=== PATIENT | female | born 1970 | race Caucasian/White ===

== ENCOUNTER 2017-08-26 15:49 | Inpatient (IN) ==
--- NOTE | 2017-08-26 16:15 | Emergency Department Note ---
General Adult HPI - General Chief complaint: Chest Pain Stated complaint: chest tightness, leg swelling, kidney failure Time Seen by Provider: 08/26/17 16:02 Source: patient Mode of arrival: ambulatory Limitations: no limitations - History of Present Illness HPI Narrative: This patient has been ill for the last several days with some nausea and vomiting and some left-sided chest pain from vomiting and has had some leg edema. She does have chronic renal failure and diabetes. She has been told in the past that she has heart failure. Dr. Garcia the director safety council sent her in for evaluation. - Related Data Home Medications Medication Instructions Recorded Confirmed amlodipine 10 mg tablet 10 mg PO QDAY tab 02/10/15 08/26/17 atorvastatin 20 mg tablet 20 mg PO QDAY tab 02/10/15 08/26/17 furosemide 40 mg tablet 40 mg PO QDAY tab 02/10/15 08/26/17 insulin glargine 100 unit/mL (3 See Dose Instructions SUB-Q 02/10/15 08/26/17 mL) subcutaneous pen .COMPLEX ml insulin lispro 100 unit/mL See Dose Instructions SUB-Q 02/10/15 08/26/17 subcutaneous solution .COMPLEX ml losartan 50 mg tablet 50 mg PO QDAY tab 02/10/15 08/26/17 multivitamin tablet 1 tab-cap PO QDAY tab 02/10/15 08/26/17 ondansetron 4 mg disintegrating See Dose Instructions PO .COMPLEX 02/10/1508/26 tablet tab lactobacillus combination no.8 3 3,000 mmu cells PO QDAY 12/26/15 08/26/17 billion cell capsule carvedilol 6.25 mg tablet 12.5 mg PO BID 05/18/17 08/26/17 hydromorphone 4 mg tablet 4 mg PO BID tab 05/18/17 08/26/17 venlafaxine ER 37.5 mg 150 mg PO QDAY 7 Days #28 cap 05/18/17 08/26/17 capsule,extended release 24 hr morphine 15 mg immediate release 15 mg PO BID tab 07/24/17 08/26/17 tablet Previous Rx's Medication Instructions Recorded calcium acetate 667 mg capsule 667 mg PO TID #90 cap 07/24/17 tiZANidine [Zanaflex] 2 mg PO TIDP PRN #30 tab 08/17/17 Allergies Allergy/AdvReac Type Severity Reaction Status Date / Time droperidol [From INAPSINE] Allergy Unknown "OUT OF Verified 07/24/17 13:43 BODY" metoclopramide Allergy Unknown Anaphylaxis Verified 07/24/17 13:43 pregabalin [From Lyrica] Allergy Unknown unknown Verified 07/24/17 13:43 prochlorperazine Allergy Unknown Anaphylaxis Verified 07/24/17 13:43 tiagabine AdvReac Severe unknown Verified 07/24/17 13:43 fentanyl AdvReac Intermediate unknown Verified 07/24/17 13:43 lidocaine AdvReac Unknown unknown Verified 07/24/17 13:43 From GABITRIL Allergy Severe Anaphylaxis Uncoded 07/24/17 13:43 From ROCEPHIN Allergy Intermediate RASH Uncoded 07/24/17 13:43 cefuroxime sodium Allergy Unknown unknown Uncoded 07/24/17 13:43 Review of Systems All systems ED: reviewed and negative except as stated. Constitutional: Denies: fever Eyes: Denies: eye pain ENT ED: Denies: ear pain Cardiovascular: Reports: chest pain Respiratory: Reports: shortness of breath, cough Gastrointestinal: Reports: abdominal pain, nausea, vomiting. Denies: diarrhea Genitourinary: Denies: dysuria Musculoskeletal: Denies: back pain Integumentary: Denies: rash Past Medical History - Past Medical History [facility] Narrative: Medical History (Last Reviewed 07/24/17 @ 14:30 by Tosin Garcia MD) Low back pain (Acute) Anemia in chronic kidney disease (CKD) (Acute) CRF (chronic renal failure) (Acute) Hypertension, essential, benign (Acute) Anemia (Chronic) Secondary hyperparathyroidism of renal origin (Chronic) Hypertensive renal disease (Chronic) Abnormal weight gain (Acute) Weakness (Acute) Vomiting (Acute) Vitreous hemorrhage (Acute) Vitamin D deficiency (Acute 01/18/13) UTI (lower urinary tract infection) (Acute) MRSA (methicillin resistant Staphylococcus aureus) (Acute) SOB (shortness of breath) (Acute) Diabetic retinopathy associated with diabetes mellitus due to underlying condition (Acute) Retinal detachment (Acute) Renal insufficiency (Acute 09/13/12) Pyelonephritis (Acute) Proteinuria (Acute) Polyneuropathy in diabetes (Acute) Peripheral neuropathy (Acute 12/09/12) Palpitation (Acute) Calf pain (Acute) Overweight (Acute 12/09/12) Nephrolithiasis (Acute 12/09/12) Microhematuria (Acute) Lumbar disc disease (Acute) 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) History of kidney stones (Acute) Hypothyroidism (Acute) Hypertension (Acute 12/09/12) Hyperkalemia (Acute) Flank pain (Acute) Fatigue (Acute) Edema of lower extremity (Acute) Dyspnea (Acute) DM (diabetes mellitus), type 1 with neurological complications (Acute) Diabetes mellitus with renal manifestation (Acute) Chronic pain (Acute) Chronic kidney disease (CKD), stage IV (severe) (Chronic 12/01/13) Chronic kidney disease, stage III (moderate) (Acute 12/09/12) Cataract (Acute) Blindness of one eye (Acute) Apnea (Acute) Orthopnea (Acute) Anemia in chronic kidney disease (CKD) (Acute 12/09/12) Acidosis (Acute) Abdominal pain (Acute) Past Surgical History (Last Reviewed 07/24/17 @ 14:30 by Tosin Garcia MD) History of shoulder surgery (Acute) History of hysterectomy with oophorectomy (Acute) Family History (Last Reviewed 07/24/17 @ 14:30 by Tosin Garcia MD) Father Cerebral infarction Essential hypertension Mother Type 1 diabetes mellitus Medical history: Reports: DM, hypertension, migraine, renal disease, other Psychiatric history: Reports: depression. Denies: anxiety Surgical history ED: Reports: appendectomy, cholecystectomy, hysterectomy, other (right oophorectomy. Left eye X 6.) - Social History smoking status: Never smoker Alcohol use: Reports: None Physical Exam Limitations: no limitations General appearance: alert Head: atraumatic Eye: Present: normal appearance ENT: normal exam Neck: Present: normal inspection Chest: Present: normal inspection Respiratory: Present: normal lung sounds bilaterally Cardiovascular: Present: regular rate, normal rhythm, normal heart sounds Abdominal: Present: soft. Absent: distention, tenderness Extremities: Present: pedal edema, pretibial edema Neurological: Present: alert Psychiatric: Present: normal affect, normal mood Skin: Present: warm, dry, intact Course Vital Signs Temperature 97.5 F 08/26/17 15:49 Pulse Rate 78 08/26/17 15:49 Respiratory Rate 18 08/26/17 15:49 Blood Pressure 175/93 08/26/17 15:49 Pulse Oximetry (%) 100 01/03/18 15:49 Temperature 97.5 F 08/26/17 15:49 Pulse Rate 74 08/26/17 19:00 Respiratory Rate 11 L 08/26/17 19:00 Blood Pressure 125/102 08/26/17 18:46 Pulse Oximetry (%) 87 L 08/26/17 19:00 Medical Decision Making - MDM Narrative Medical decision making narrative: Venous Doppler studies of the leg was were negative for DVT. Chest x-ray was read as clear. This patient will be admitted to the hospital by the hospitalist service. - Lab Data Lab results reviewed: Yes I reviewed the patient's lab results. Result diagrams: 08/26/17 19:08 08/26/17 17:10 Lab Results 08/26/17 08/26/17 08/26/17 Range/Units 17:10 17:10 17:10 WBC TNP RBC TNP Hgb TNP Hct TNP MCV TNP MCH TNP MCHC TNP RDW TNP Plt Count TNP MPV TNP Gran % TNP Lymph % (Auto) TNP [place] % (Auto) TNP Eos % (Auto) TNP Baso % (Auto) TNP Gran # TNP Lymph # (Auto) TNP [place] # (Auto) TNP Eos # (Auto) TNP Baso # (Auto) TNP Differential Comment TNP Sodium 131 L (133-145) mmol/L Potassium 4.5 (3.3-5.1) mmol/L Chloride 93 L (96-108) mmol/L Carbon Dioxide 21 L (22-30) mmol/L Anion Gap 17.0 H (8-16) BUN 55 H (6-20) mg/dl Creatinine 3.7 H (0.6-1.1) mg/dl GFR Calculation 14 Glucose 75 (70-105) mg/dL Calcium 9.2 (8.6-10.4) mg/dl Total Bilirubin < 0.2 (0.0-1.0) mg/dL AST 15 (0-37) U/l ALT 9 (0-40) U/l Alkaline Phosphatase 66 (39-117) U/L Troponin T < 0.01 (0-0.03) ng/ml Total Protein 7.3 (5.9-8.4) gm/dL Albumin 3.7 (3.2-5.2) gm/dL Globulin 3.6 (2.2-3.7) gm/dL Albumin/Globulin Ratio 1.0 (1.0-2.3) Urine Color Urine Appearance Urine pH (5.0-9.0) Ur Specific [place] (1.000-1.035) Urine Protein (NEG) mg/dL Urine Glucose (UA) (NEG) mg/dL Urine Ketones (NEG) mg/dL Urine Occult Blood (<0.03) mg/dL Urine Nitrate (NEG) Urine Bilirubin (NEG) mg/dL Urine Urobilinogen (NEG) mg/dL Ur Leukocyte Esterase (NEG) /uL Urine RBC (0-1) /hpf Urine WBC (0-4) /hpf Ur Squamous Epith Cells (0-4) /hpf Urine Bacteria (0) /hpf Urine Mucus (0) /hpf Ur Culture Indicated? 08/26/17 08/26/17 Range/Units 18:21 19:08 WBC 5.1 RBC 3.29 L Hgb 9.7 L Hct 28.3 L MCV 85.8 MCH 29.4 MCHC 34.3 RDW 13.5 Plt Count 456 H MPV 8.0 Gran % 44.6 Lymph % (Auto) 38.2 [place] % (Auto) 7.7 Eos % (Auto) 8.8 H Baso % (Auto) 0.7 Gran # 2.3 Lymph # (Auto) 2.0 [place] # (Auto) 0.4 Eos # (Auto) 0.4 Baso # (Auto) 0 Differential Comment Sodium (133-145) mmol/L Potassium (3.3-5.1) mmol/L Chloride (96-108) mmol/L Carbon Dioxide (22-30) mmol/L Anion Gap (8-16) BUN (6-20) mg/dl Creatinine (0.6-1.1) mg/dl GFR Calculation Glucose (70-105) mg/dL Calcium (8.6-10.4) mg/dl Total Bilirubin (0.0-1.0) mg/dL AST (0-37) U/l ALT (0-40) U/l Alkaline Phosphatase (39-117) U/L Troponin T (0-0.03) ng/ml Total Protein (5.9-8.4) gm/dL Albumin (3.2-5.2) gm/dL Globulin (2.2-3.7) gm/dL Albumin/Globulin Ratio (1.0-2.3) Urine Color Colorless Urine Appearance Clear Urine pH 5.0 (5.0-9.0) Ur Specific [place] 1.005 (1.000-1.035) Urine Protein 30 A (NEG) mg/dL Urine Glucose (UA) Negative (NEG) mg/dL Urine Ketones Neg (NEG) mg/dL Urine Occult Blood Neg (<0.03) mg/dL Urine Nitrate Neg (NEG) Urine Bilirubin Neg (NEG) mg/dL Urine Urobilinogen Neg (NEG) mg/dL Ur Leukocyte Esterase Neg (NEG) /uL Urine RBC 0 (0-1) /hpf Urine WBC 0 (0-4) /hpf Ur Squamous Epith Cells 1 (0-4) /hpf Urine Bacteria 0 (0) /hpf Urine Mucus Few (0) /hpf Ur Culture Indicated? No - Radiology Data Radiology results reviewed: Yes I reviewed the patient's radiology results. Disposition Pt seen by INTERVENTIONAL SALE CONSULTANT/PA only: No Clinical Impression: Chronic renal failure, stage 4 (severe) Chronic renal failure Qualifiers: Chronic kidney disease stage: stage 3 (moderate) Qualified Code(s): N18.3 - Chronic kidney disease, stage 3 (moderate) Disposition: Xfer As Inpt ([facility]) Condition: Fair Referrals: Natasha Ly MD [Primary Care Provider] - Time of Disposition: 19:47
[2017-08-26] MEDS ORDERED: ONDANSETRON 4 MG/2 ML VIAL IV ONE (16:16)
--- NOTE | 2017-08-26 16:50 | XRay Report ---
CLINICAL INFORMATION: Shortness of breath COMPARISON: 08/28/2009 FINDINGS: The heart size, mediastinum and pulmonary vessels are unremarkable. The lungs are clear. There are no effusions. The bones and soft tissues are within normal limits. IMPRESSION: Normal chest. Interpreted and Authenticated by: Joe Guevara 08/26/17
[2017-08-26] MEDS ORDERED: LORazepam 2 MG/ML VIAL IV ONE (17:35)
--- NOTE | 2017-08-26 18:15 | Ultrasound Report ---
CLINICAL INFORMATION: Bilateral lower extremity swelling COMPARISON: None. FINDINGS: Both the venous system including the common femoral, superficial femoral, popliteal and paired trifurcation calf veins are easily compressible and show normal venous blood flow on color and spectral Doppler. No evidence of thrombus IMPRESSION: Negative exam - no evidence of deep vein thrombosis in either lower extremity. Interpreted and Authenticated by: Joe Guevara 08/26/17
[2017-08-26 18:18] LABS: ALT/SGPT 9 U/l (0-40); Albumin 3.7 gm/dL (3.2-5.2); Alkaline Phosphatase 66 U/L (39-117); Blood Urea Nitrogen 55 mg/dl (6-20)
[2017-08-26 19:11] LABS: Appearance,Urine CLEAR; Bacteria,Urine 0 /hpf (0); Bilirubin,Urine NEG (NEG); Color,Urine COLORLESS; Glucose,Urine (UA) NEGATIVE (NEG); Leukocyte Esterase,Urine NEG /uL (NEG); Mucus,Urine FEW /hpf (0); Nitrate,Urine NEG (NEG); Protein,Urine 30 mg/dL (NEG); Specific Gravity,Urine 1.005 (1.000-1.035); Urine Blood NEG mg/dL (<0.03); Urine RBC 0 /hpf (0-1); Urine Squamous Epithelial Cell 1 /hpf (0-4); Urine WBC 0 /hpf (0-4); Urobilinogen,Urine NEG (NEG)
--- NOTE | 2017-08-26 19:29 | Nephrology Consult Note ---
History of Present Illness - Reason for Consult Patient information: Note initiated : 08/26/17 at 7:24 pm Service Date, if different from initiated Date: [] Patient: Paige Lemos 46 y/o F admitted on for chest tightness, leg swelling, kidney failure. Chief Complaint: [] Consult date: 08/26/17 chronic renal failure Requesting physician: Walter Cross - Chief Complaint worsening edema - History of Present Illness Patient seen in the ER She has h/o CKD stage IV related to diabetic nephropathy. Patient has been in the ER multiple times with c/o fatigue, LE weakness more in right LE. SOB on exertion and worsening LE edema. She was in ER on 08/24 at [facility] there her BP was uncontrolled and she has significant edema, her coreg dose was increased, her s.creat was worse. She states that she continued to feel poorly, extremely difficult to walk, gets easily fatigued and SOB. C/O 15 lb weight gain over the last 2 days no CP but has tingling and numbness in left UE c/o headache, nausea, vomiting no urinary symptoms denies any other change in medications was not sick with URI denies using NSAIDS Review of Systems All systems PM: reviewed and no additional remarkable complaints except as stated (In HPI) Past History Past medical history: DM type 1, retinopathy, neuropathy, CKD stage IV HTN, recently uncontrolled dyslipidemia chronic pain on opiate medications nephrolithiasis anemia of CKD secondary hyperparathyroidism Past surgical history: h/o hysterectomy and oopherectomy h/o right shoulder surgery Past family history: mother had h/o dementia no renal issues reported 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 social history: 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, 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 Medications and Allergies Home Medications Medication Instructions Recorded Confirmed Type amlodipine 10 mg tablet 10 mg PO QDAY tab 02/10/15 08/26/17 History atorvastatin 20 mg tablet 20 mg PO QDAY tab 02/10/15 08/26/17 History furosemide 40 mg tablet 40 mg PO QDAY tab 02/10/15 08/26/17 History insulin glargine 100 unit/mL (3 See Dose Instructions SUB-Q 02/10/15 08/26/17 History mL) subcutaneous pen .COMPLEX ml insulin lispro 100 unit/mL See Dose Instructions SUB-Q 02/10/15 08/26/17 History subcutaneous solution .COMPLEX ml losartan 50 mg tablet 50 mg PO QDAY tab 02/10/15 08/26/17 History multivitamin tablet 1 tab-cap PO QDAY tab 02/10/15 08/26/17 History ondansetron 4 mg disintegrating See Dose Instructions PO .COMPLEX 02/10/1508/26 History tablet tab lactobacillus combination no.8 3 3,000 mmu cells PO QDAY 12/26/15 08/26/17 History billion cell capsule carvedilol 6.25 mg tablet 12.5 mg PO BID 05/18/17 08/26/17 History hydromorphone 4 mg tablet 4 mg PO BID tab 05/18/17 08/26/17 History venlafaxine ER 37.5 mg 150 mg PO QDAY 7 Days #28 cap 05/18/17 08/26/17 History capsule,extended release 24 hr calcium acetate 667 mg capsule 667 mg PO TID #90 cap 07/24/17 08/26/17 Rx morphine 15 mg immediate release 15 mg PO BID tab 07/24/17 08/26/17 History tablet tiZANidine [Zanaflex] 2 mg PO TIDP PRN #30 tab 08/17/17 08/26/17 Rx Allergies Allergy/AdvReac Type Severity Reaction Status Date / Time droperidol [From INAPSINE] Allergy Unknown "OUT OF Verified 07/24/17 13:43 BODY" metoclopramide Allergy Unknown Anaphylaxis Verified 07/24/17 13:43 pregabalin [From Lyrica] Allergy Unknown unknown Verified 07/24/17 13:43 prochlorperazine Allergy Unknown Anaphylaxis Verified 07/24/17 13:43 tiagabine AdvReac Severe unknown Verified 07/24/17 13:43 fentanyl AdvReac Intermediate unknown Verified 07/24/17 13:43 lidocaine AdvReac Unknown unknown Verified 07/24/17 13:43 From GABITRIL Allergy Severe Anaphylaxis Uncoded 07/24/17 13:43 From ROCEPHIN Allergy Intermediate RASH Uncoded 07/24/17 13:43 cefuroxime sodium Allergy Unknown unknown Uncoded 07/24/17 13:43 Exam - Vital Signs Vital signs: Temp Pulse Resp BP Pulse Ox 97.5 F 74 11 L 125/102 87 L 08/26/17 15:49 08/26/17 19:00 08/26/17 19:00 08/26/17 18:46 08/26/17 19:00 - General Appearance General appearance: appears started age, chronically ill EENT: mucous membranes moist Neck: no JVD Respiratory: clear Cardiology: no rub, edema (3+), normal S1, normal S2 Gastrointestinal: no tenderness, no guarding Integumentary: no rash, warm and dry Neurologic: no asterixis, alert and oriented x3 Musculoskeletal: no erythema, no cyanosis Psychiatric: mood/affect appropriate Results - Lab Results 08/26/17 17:10 08/26/17 17:10 Most recent lab results Calcium 9.2 mg/dl (8.6-10.4) 08/26/17 17:10 Assessment and Plan (1) Acute on chronic renal failure s.creatinine is upto 3.7 baseline 2.4-2.8, BUN is 57 significant worsening with fluid excess is concerning no hyperkalemia, mild acidosis from renal failure mild hyponatremia from fluid overload Hb pending, has dropped down recently as well HTN uncontrolled recently as well recent CT scan showed no hydronephrosis would recommend to hospitalise the patient for IV diuresis given 15 lb weight gain in 2 days with significant decline in renal function would recommend to give 80mg IV and then continue 40mg iv tid with monitoring of renal function/serum electrolytes would continue with current antihypertensives no emergent need for dialysis but may need the same will need echo given fluid overload Will follow along Status: Acute (2) Fluid overload Status: Acute
[2017-08-26 19:44] LABS: Basophils # (Auto) 0 K/mcL (0.0-0.3); Basophils % (Auto) 0.7 % (0.0-2.0); Eosinophils # (Auto) 0.4 K/mcL (0.0-0.7); Eosinophils % (Auto) 8.8 % (0.0-7.0); Granulocytes % (Auto) 44.6 % (38.0-78.0); Lymphocytes % (Auto) 38.2 % (15.5-49.0); Mean Cell Volume 85.8 fL (80.0-100.0); Mean Corpuscular HGB Conc 34.3 g/dL (31.0-36.0); Mean Corpuscular Hemoglobin 29.4 pg (26.0-34.0); Monocytes # (Auto) 0.4 K/mcL (0.1-0.9); Monocytes % (Auto) 7.7 % (1.0-12.0); Platelet Count 456 K/mcL (140-440); RBC 3.29 M/mcL (4.00-5.20); Red Cell Distribution Width 13.5 % (11.5-14.5)
[2017-08-26] MEDS ORDERED: NALOXONE HCL 0.4 MG/ML VIAL IV PRN (20:39)
--- NOTE | 2017-08-26 20:48 | Internal Med History&Physical ---
Medical - H&P: HPI Patient information: Note initiated : 08/26/17 at 8:46 pm Service Date, if different from initiated Date: [] Patient: Paige Lemos a 46 y/o F admitted on 08/26/17 for chest tightness , leg swelling, kidney failure. Chief Complaint: [] History of present illness: Ms. Lemos is a 46 year old F with h/o DM, CKD stage 4, HTN, who presents to the ER with complaints of weakness, edema in howard lower extremities and confusion. She was asked by her applications consultant to c ome to the ER after she reported 15lbs weight gain in 2 days. The patient notes that she was not feeling well for 2 days, has been weak and fatigued, tired, short of breath on exertion, she notes that she has been have increased swelling in both her feet since 2 d ays, noted she likely gained 15 lbs over 2 days. She notes she has pain in the left upper abdomen, which lasts for a minute or so, sharp/ to pressure like sensation, radiating to the back, she has been having nausea and vomiting, and initially thought this was secondary to same. She has some dizziness. the patient also reports that since this AM she has more weakness in the right lower extremity, she also has decreased sensation in that leg, she tried to walk and her leg gave away. She denies any bowel bladder continence, she denies any slurring of speech or deviation of face. Her who is at the bedside noted that she has been confused, but no facial deviation over the last 2 days, talking to people who are not there and trying to do things while in bed as if doing the laundry In the ER the patient had worsening of her renal function, baseline creat jumped up from 2.4 to 3.7, she had edema feet, trop x 1 neg, ekg shows RBBB, which seems old, no ekg present but old tracing shows rbbb, the patient wbc is normal and ua is negative. She is being admitted to the hospital for further management. She was present to the ER on aug 17, for flank back pain? which she did not report to me, and was given xanaflex, she also takes morphine SR at home, her dose of coreg was adjusted. All systems: reviewed and no additional remarkable complaints except as stated ( as per HPI) Medical - H&P: [facility] Medical history: Medical History (Last Reviewed 07/24/17 @ 14:30 by Tosin Garcia MD) Low back pain (Acute) Anemia in chronic kidney disease (CKD) (Acute) CRF (chronic renal failure) (Acute) Hypertension, essential, benign (Acute) Acute on chronic renal failure (Acute) Fluid overload (Acute) Chronic renal failure, stage 4 (severe) (Acute) Anemia (Chronic) Secondary hyperparathyroidism of renal origin (Chronic) Hypertensive renal disease (Chronic) Abnormal weight gain (Acute) Weakness (Acute) Vomiting (Acute) Vitreous hemorrhage (Acute) Vitamin D deficiency (Acute 01/18/13) UTI (lower urinary tract infection) (Acute) MRSA (methicillin resistant Staphylococcus aureus) (Acute) SOB (shortness of breath) (Acute) Diabetic retinopathy associated with diabetes mellitus due to underlying condition (Acute) Retinal detachment (Acute) Renal insufficiency (Acute 09/13/12) Pyelonephritis (Acute) Proteinuria (Acute) Polyneuropathy in diabetes (Acute) Peripheral neuropathy (Acute 12/09/12) Palpitation (Acute) Calf pain (Acute) Overweight (Acute 12/09/12) Nephrolithiasis (Acute 12/09/12) Microhematuria (Acute) Lumbar disc disease (Acute) 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 (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) History of kidney stones (Acute) Hypothyroidism (Acute) Hypertension (Acute 12/09/12) Hyperkalemia (Acute) Flank pain (Acute) Fatigue (Acute) Edema of lower extremity (Acute) Dyspnea (Acute) DM (diabetes mellitus), type 1 with neurological complications (Acute) Diabetes mellitus with renal manifestation (Acute) Chronic pain (Acute) Chronic kidney disease (CKD), stage IV (severe) (Chronic 12/01/13) Chronic kidney disease, stage III (moderate) (Acute 12/09/12) Cataract (Acute) Blindness of one eye (Acute) Apnea (Acute) Orthopnea (Acute) Anemia in chronic kidney disease (CKD) (Acute 12/09/12) Acidosis (Acute) Abdominal pain (Acute) Surgical history: Past Surgical History (Last Reviewed 07/24/17 @ 14:30 by Tosin Garcia MD) History of shoulder surgery (Acute) History of hysterectomy with oophorectomy (Acute) Pertinent family history: Family History (Last Reviewed 12/01/17 @ 14:30 by Tosin Garcia MD) Father Cerebral infarction Essential hypertension Mother Type 1 diabetes mellitus Medical - H&P: Meds Home Medications Medication Instructions Recorded Confirmed Type amlodipine 10 mg tablet 10 mg PO QDAY tab 02/10/15 08/26/17 History atorvastatin 20 mg tablet 20 mg PO QDAY tab 02/10/15 08/26/17 History furosemide 40 mg tablet 40 mg PO QDAY tab 02/10/15 08/26/17 History insulin glargine 100 unit/mL (3 See Dose Instructions SUB-Q 02/10/15 08/26/17 History mL) subcutaneous pen .COMPLEX ml insulin lispro 100 unit/mL See Dose Instructions SUB-Q 02/10/15 08/26/17 History subcutaneous solution .COMPLEX ml losartan 50 mg tablet 50 mg PO QDAY tab 02/10/15 08/26/17 History multivitamin tablet 1 tab-cap PO QDAY tab 02/10/15 08/26/17 History ondansetron 4 mg disintegrating See Dose Instructions PO .COMPLEX 02/10/1508/26 History tablet tab lactobacillus combination no.8 3 3,000 mmu cells PO QDAY 12/26/15 08/26/17 History billion cell capsule carvedilol 6.25 mg tablet 12.5 mg PO BID 05/18/17 08/26/17 History hydromorphone 4 mg tablet 4 mg PO BID tab 05/18/17 08/26/17 History venlafaxine ER 37.5 mg 150 mg PO QDAY 7 Days #28 cap 05/18/17 08/26/17 History capsule,extended release 24 hr calcium acetate 667 mg capsule 667 mg PO TID #90 cap 07/24/17 08/26/17 Rx morphine 15 mg immediate release 15 mg PO BID tab 07/24/17 08/26/17 History tablet tiZANidine [Zanaflex] 2 mg PO TIDP PRN #30 tab 08/17/17 08/26/17 Rx Allergies Allergy/AdvReac Type Severity Reaction Status Date / Time metoclopramide Allergy Severe Anaphylaxis Verified 08/26/17 21:14 prochlorperazine Allergy Severe Anaphylaxis Verified 08/26/17 21:14 pregabalin [From Lyrica] Allergy Unknown unknown Verified 07/24/17 13:43 tiagabine AdvReac Severe unknown Verified 07/24/17 13:43 fentanyl AdvReac Intermediate unknown Verified 07/24/17 13:43 droperidol [From INAPSINE] AdvReac Mild "OUT OF Verified 08/26/17 21:14 BODY" lidocaine AdvReac Unknown unknown Verified 07/24/17 13:43 From GABITRIL Allergy Severe Anaphylaxis Uncoded 07/24/17 13:43 From ROCEPHIN Allergy Intermediate RASH Uncoded 07/24/17 13:43 cefuroxime sodium Allergy Unknown unknown Uncoded 07/24/17 13:43 Medical - H&P: Exam - Constitutional Vitals: Temp Pulse Resp BP Pulse Ox 97.5 F 74 11 L 125/102 87 L 08/26/17 15:49 08/26/17 19:00 08/26/17 19:00 08/26/17 18:46 08/26/17 19:00 Exam: GENERAL: The patient is a well-developed, well-nourished in no apparent distress. Is alert and oriented x3. VITAL SIGNS: Reviewed and as noted elsewhere. HEENT: Head is normocephalic and atraumatic. Extraocular muscles are intact.right pupil 3mm, left eye has some corneal opacity. Nares appeared normal. Mouth appears any without lesions. Mucous membranes are moist. NECK: Normal to inspection, Supple, No lymphadenopathy or thyromegaly. LUNGS: Air entry equal on both sides, no wheezing, crackles or rhonchi noted. No accessory muscles of respiration HEART: Regular rate and rhythm normal, S1 and S2 heard, no Gallop, S3 or Rub Noted, No Gross murmur heard. ABDOMEN: Soft, nontender, and nondistended. Positive bowel sounds. No hepatosplenomegaly was noted. EXTREMITIES: No cyanosis, clubbing, rash, , howard edema present, upto the upper thighs, NEUROLOGIC: Cranial nerves II through XII are grossly intact. right leg has decreased sensation, has 4/5 strength, left leg also has decreased sensation, but not as much as right, and has 5/5 strength. PSYCHIATRIC: Normal affect, Normal Mood. Appropriate Behavior. SKIN: No jaundice,multiple excoraited skin lesions due to ticks noted. Medical - H&P: Reslt - Labs CBC & Chem 7: 08/26/17 19:08 08/26/17 17:10 Labs: Short CBC 08/26/17 08/26/17 Range/Units 17:10 19:08 WBC TNP 5.1 Hgb TNP 9.7 L Hct TNP 28.3 L Plt Count TNP 456 H BMP 08/26/17 17:10 Sodium 131 L Potassium 4.5 Chloride 93 L Carbon Dioxide 21 L BUN 55 H Creatinine 3.7 H Glucose 75 Calcium 9.2 Cardiac Enzymes 08/26/17 Range/Units 17:10 Troponin T < 0.01 (0-0.03) ng/ml Liver Function 08/26/17 Range/Units 17:10 Total Bilirubin < 0.2 (0.0-1.0) mg/dL AST 15 (0-37) U/l ALT 9 (0-40) U/l Alkaline Phosphatase 66 (39-117) U/L Albumin 3.7 (3.2-5.2) gm/dL Urine 08/26/17 Range/Units 18:21 Urine Color Colorless Urine Appearance Clear Urine pH 5.0 (5.0-9.0) Ur Specific [place] 1.005 (1.000-1.035) Urine Protein 30 A (NEG) mg/dL Urine Glucose (UA) Negative (NEG) mg/dL Medical - H&P: A/P - Narrative A/P Narrative: A/P Acute on Chr renal failure: Etiology, nephrology consulted, pt clearly has fluid overload, will place rudd, and start on IV lasix, monitor output. Flud overload: due to ckd? get echo, x ray does not show chf, iv lasix for now, DVT is neg on duplex scanning. Confustion: etiology? no clear e/o infection, patient is on opiates also got some xanaflex which can cause confusion, monitor for now, hold oral morphine. Neuropathy/ Pain: Hold oral morphine, as can cause UPPER CASER adverse effects in patients with CKd, IV dilaudid prn for now, monitor reponse and adjsut dosing. Right leg weakness: likely secondary to swelling, but she was in the ER for back pain, a few days ago, denies this now, has no spine tenderness, will see how she does with diuresis, get MRI spine. DM: Type 1 DM, with retinopathy and nephropathy, neuropathy, lantus and sliding scale insulin. HTN: resume meds, hold losartan for now, and resume coreg, amlodipine. HLD : P[t is not on statin at home? Chest pain/ LEft upper quadarant pain: Etiology? associated with vomiting, no ekg changes, neg trop, repeat trop, monitor on tele, IV PPI and IV zofran and see how she does, will get echo in AM, DVT hep sq Diet carb consistent, renal diet Full code. Social History - Tobacco smoking status: Never smoker - Alcohol alcohol intake frequency: former alcohol drinker
[2017-08-26] MEDS: HYDROmorphone 2 MG/ML SYRINGE IV PRN ×2 (20:50→22:39)
[2017-08-26] MEDS ORDERED: HYDROmorphone 2 MG/ML SYRINGE ONE (20:54)
[2017-08-26 21:01] LABS: Amylase 23 U/L (28-100); Lipase 19 U/L (7-60); proBNP 441.8 pg/ml (0-125)
[2017-08-26] MEDS: FUROSEMIDE 100 MG/10 ML VIAL IV SCH ×4 (21:06→22:55)
[2017-08-26] MEDS ORDERED: FUROSEMIDE 20 MG/2 ML VIAL IV ONE ×2 (21:11→21:20)
[2017-08-26] MEDS ORDERED: DEXTROSE 31 GM ORAL.SUSP PO PRN (21:27)
[2017-08-26] MEDS ORDERED: DEXTROSE 50% 50 ML VIAL IV PRN (21:27)
[2017-08-26] MEDS ORDERED: diphenhydrAMINE 50 MG/ML VIAL ONE (22:55)
[2017-08-26] MEDS: HEPARIN 5,000 UNIT/ML VIAL SQ SCH (22:56)
[2017-08-26] MEDS: PANTOPRAZOLE 40 MG VIAL IV SCH (22:56)
[2017-08-26] MEDS: INSULIN GLARGINE, HUMAN 1 UNIT/0.01 ML SQ SCH (22:58)
[2017-08-27] MEDS: HYDROmorphone 2 MG/ML SYRINGE IV PRN ×6 (01:59→23:45)
[2017-08-27] MEDS: ONDANSETRON 4 MG/2 ML VIAL IV PRN ×4 (03:15→21:06)
[2017-08-27 04:26] LABS: Basophils # (Auto) 0 K/mcL (0.0-0.3); Basophils % (Auto) 0.5 % (0.0-2.0); Eosinophils # (Auto) 0.4 K/mcL (0.0-0.7); Eosinophils % (Auto) 7.5 % (0.0-7.0); Granulocytes % (Auto) 39.1 % (38.0-78.0); Lymphocytes # (Auto) 2.1 K/mcL (1.5-4.8); Lymphocytes % (Auto) 44.7 % (15.5-49.0); Mean Cell Volume 86.1 fL (80.0-100.0); Mean Corpuscular HGB Conc 33.9 g/dL (31.0-36.0); Mean Corpuscular Hemoglobin 29.2 pg (26.0-34.0); Monocytes # (Auto) 0.4 K/mcL (0.1-0.9); Monocytes % (Auto) 8.2 % (1.0-12.0); Platelet Count 435 K/mcL (140-440); RBC 3.06 M/mcL (4.00-5.20); Red Cell Distribution Width 13.6 % (11.5-14.5)
[2017-08-27 04:55] LABS: ALT/SGPT 8 U/l (0-40); Albumin 3.4 gm/dL (3.2-5.2); Albumin/Globulin Ratio 1.1 (1.0-2.3); Alkaline Phosphatase 60 U/L (39-117); Bilirubin,Direct < 0.2 mg/dL (0.0-0.3); Blood Urea Nitrogen 52 mg/dl (6-20); Gamma Glutamyl Transpeptidase 13 U/L (5-36); Magnesium 2.3 mg/dL (1.6-2.5); Uric Acid 8.7 mg/dL (2.5-8.0)
[2017-08-27] MEDS: FUROSEMIDE 100 MG/10 ML VIAL IV SCH ×3 (05:02→20:56)
[2017-08-27] MEDS: PANTOPRAZOLE 40 MG VIAL IV SCH (06:57)
[2017-08-27] MEDS: INSULIN LISPRO 1 UNIT/0.01 ML UNIT SQ SCH ×4 (06:58→21:17)
[2017-08-27] MEDS ORDERED: CARVEDILOL 12.5 MG TABLET PO SCH (08:00)
[2017-08-27 09:05] LABS: Iron 53 mcg/dl (37-145); Transferrin % Saturation 23 % (15-50); Unsaturated Iron Binding 168 mcg/dL (112-346)
[2017-08-27 09:06] LABS: Ferritin 80.8 ng/ml (13-150)
[2017-08-27 09:13] LABS: Vitamin B12 935.1 pg/ml (232-1245)
[2017-08-27] MEDS: CARVEDILOL 12.5 MG TABLET PO SCH ×2 (09:16→17:41)
[2017-08-27] MEDS: CALCIUM ACETATE 667 MG CAPSULE PO SCH ×2 (09:16→12:58)
[2017-08-27] MEDS: LACTOBACILLUS 1 CAPSULE PO SCH (09:17)
[2017-08-27] MEDS: VENLAFAXINE 37.5 MG TAB.ER.24H PO SCH (09:17)
[2017-08-27] MEDS: HEPARIN 5,000 UNIT/ML VIAL SQ SCH ×2 (09:17→20:56)
[2017-08-27] MEDS: MULTIVIT,THER IRON,CA,FA & MIN 1 TABLET PO SCH (09:18)
[2017-08-27] MEDS: diphenhydrAMINE 50 MG/ML VIAL IV PRN ×2 (09:18→13:51)
[2017-08-27] MEDS: ATORVASTATIN 20 MG TABLET PO SCH (09:18)
[2017-08-27] MEDS: INSULIN GLARGINE, HUMAN 1 UNIT/0.01 ML SQ SCH ×2 (09:18→21:18)
[2017-08-27] MEDS: amLODIPine 10 MG TABLET PO SCH (09:18)
[2017-08-27] MEDS ORDERED: PNEUMOCOCCAL 23-VAL P-SAC VAC 0.5 ML VIAL IM ONE (10:00)
[2017-08-27] MEDS ORDERED: FLU VACC QS2017-18 36MOS UP/PF 60 MCG/0.5 ML SYRINGE IM ONE (10:00)
[2017-08-27] MEDS: HYDROmorphone 2 MG TABLET PO SCH ×2 (10:45→20:56)
[2017-08-27] MEDS ORDERED: HYDROmorphone 2 MG TABLET PO ONE (10:45)
[2017-08-27] MEDS ORDERED: NITROGLYCERIN 0.4 MG TAB.SUBL SL PRN (13:08)
--- NOTE | 2017-08-27 13:08 | Internal Med Progress Note ---
Medical - PN: Subj Patient information: Note initiated : 08/27/17 at 1:05 pm Service Date, if different from initiated Date: [] Patient: Paige Lemos a 46 y/o F admitted on 08/26/17 for Chest Tightness , Leg Swelling, Kidney Failure. Chief Complaint: [] Interval history: Ms. Lemos is a 46 year old F with h/o DM, CKD stage 4, HTN, who presents to the ER with complaints of weakness, edema in howard lower extremities and confusion. She was asked by her automatic log cut off sawyer to c ome to the ER after she reported 15lbs weight gain in 2 days. The patient notes that she was not feeling well for 2 days, has been weak and fatigued, tired, short of breath on exertion, she notes that she has been have increased swelling in both her feet since 2 d ays, noted she likely gained 15 lbs over 2 days. She notes she has pain in the left upper abdomen, which lasts for a minute or so, sharp/ to pressure like sensation, radiating to the back, she has been having nausea and vomiting, and initially thought this was secondary to same. She has some dizziness. the patient also reports that since this AM she has more weakness in the right lower extremity, she also has decreased sensation in that leg, she tried to walk and her leg gave away. She denies any bowel bladder continence, she denies any slurring of speech or deviation of face. Her who is at the bedside noted that she has been confused, but no facial deviation over the last 2 days, talking to people who are not there and trying to do things while in bed as if doing the laundry In the ER the patient had worsening of her renal function, baseline creat jumped up from 2.4 to 3.7, she had edema feet, trop x 1 neg, ekg shows RBBB, which seems old, no ekg present but old tracing shows rbbb, the patient wbc is normal and ua is negative. She is being admitted to the hospital for further management. She was present to the ER on aug 17, for flank back pain? which she did not report to me, and was given xanaflex, she also takes morphine SR at home, her dose of coreg was adjusted. Aug 28 Patient seen examined, no new complaints still has swelling in the legs and weakness, which is getting better. patient was neg 2700ml overnight with improving renal functino. COntinue IV diuresis Pt still has some weakness in the right LL, which is unchanged than yesterday, able to lift somewhat against gravity, she also notes pain in the chest, a band like sensation? Will repeat Trop again, cxr is negative, echo pending, will get MRI thoracic sine to r/o any spinal pathology, sonam since we are already doing the Ct Lumbar spine. check D dimer and trial of nitro to see if this is cardiac. Pertinent ROS: Denies headache, dizziness upper abdomen/ lower elft sided c hest pain, band like sensation, no palpitations, sob still present on activity, not at rest, no cough, Denies abdominal pain, nausea or vomiting. - Constitutional Vitals: Vital Signs Temp Pulse Resp BP Pulse Ox 98.0 F 78 16 119/56 91 08/27/17 12:01 08/26/17 21:49 08/27/17 12:01 08/27/17 12:01 08/27/17 12:01 Period Temp Pulse Resp BP Sys/Toro Pulse Ox Last 24 Hr 97.5 F-99.0 F 49-97 10-24 67-175/43-102 81-100 Intake and Output 08/26/17 08/27/17 08/27/17 21:59 05:59 13:59 Intake Total 110 / 110 Output Total 600 / 600 1550 / 1550 750 / 750 Balance -600 / -600 -1440 / -1440 -750 / -750 Weight 190 lb 4.8 oz Intake & Output: Intake & Output 08/26/17 08/27/17 08/27/17 21:59 05:59 13:59 Intake Total 110 / 110 Output Total 600 / 600 1550 / 1550 750 / 750 Balance -600 / -600 -1440 / -1440 -750 / -750 Weight 190 lb 4.8 oz Intake: Oral 110 / 110 Output: Urine Catheter Amount 600 / 600 1550 / 1550 750 / 750 Other: Meal Breakfast Percent of Meal Consumed 25% Feeding Ability Independent Exam: Constitutional; Afebrile, cooperative, alert, not in distress. Eyes- No icterus, , No periorbital swelling Ears- Ext ear normal, hearing normal to conversation. Neck- Midline trachea, supple Respiratory system: Air Entry equal on both sides, No crackles or wheezing, no rhonchi. CVS- Rate rhythm regular, S1,S2 heard, no gallop, no rub. Abdomen- Soft nontender abdomen, no organomegaly, no tenderness, no guarding or rigidity, TELEPHONE APPOINTMENT CLERK- AOOx3, moving all extremities, right lower extremity weakness, 3 -4/5 unchanged since yesterday. MRI pending. Medical - PN: Obj Da - Labs CBC & Chem 7: 08/27/17 03:45 08/27/17 03:45 Labs: Abnormal Lab Results 08/27/17 08/27/17 08/27/17 07:59 03:45 03:45 RBC 3.06 L Hgb 8.9 L Hct 26.4 L Plt Count Eos % (Auto) 7.5 H Sodium Chloride Carbon Dioxide Anion Gap BUN 52 H Creatinine 3.4 H Uric Acid 8.7 H Phosphorus 7.4 H* TIBC 221 L NT-Pro-B Natriuret Pep Triglycerides 389 H Amylase Urine Protein 08/26/17 08/26/17 08/26/17 19:54 19:08 18:21 RBC 3.29 L Hgb 9.7 L Hct 28.3 L Plt Count 456 H Eos % (Auto) 8.8 H Sodium Chloride Carbon Dioxide Anion Gap BUN Creatinine Uric Acid Phosphorus TIBC NT-Pro-B Natriuret Pep 441.8 H Triglycerides Amylase 23 L Urine Protein 30 A 08/26/17 17:10 RBC Hgb Hct Plt Count Eos % (Auto) Sodium 131 L Chloride 93 L Carbon Dioxide 21 L Anion Gap 17.0 H BUN 55 H Creatinine 3.7 H Uric Acid Phosphorus TIBC NT-Pro-B Natriuret Pep Triglycerides Amylase Urine Protein Meds: Medications Amlodipine Besylate (Norvasc) 10 mg PO QDAY [facility] Last Admin: 08/27/17 09:18 Dose: 10 mg Atorvastatin Calcium (Lipitor) 20 mg PO QDAY [facility] Last Admin: 08/27/17 09:18 Dose: 20 mg Calcium Acetate (Phoslo) 667 mg PO TIDCC [facility] Last Admin: 08/27/17 12:58 Dose: Not Given Carvedilol (Coreg) 6.25 mg PO BIDCC [facility] Last Admin: 08/27/17 09:16 Dose: 6.25 mg Dextrose (Dextrose 50%) 0 ml IV UD PRN PRN Reason: Hypoglycemia Diagnostic Test (Pha) (Accu-Chek) 1 each FS ACHS [facility] Last Admin: 08/27/17 11:55 Dose: 1 each Diphenhydramine HCl (Benadryl) 12.5 mg IV Q4HP PRN PRN Reason: Allergic Symptoms Last Admin: 08/27/17 09:18 Dose: 12.5 mg Furosemide (Lasix) 60 mg IV Q8 [facility] Last Admin: 08/27/17 05:02 Dose: 60 mg Glucose (Insta-Glucose) 15 gm PO PRN PRN PRN Reason: Hypoglycemia Heparin Sodium (Porcine) (Heparin) 5,000 unit SQ Q12 [facility] Last Admin: 08/27/17 09:17 Dose: 5,000 unit Hydromorphone HCl (Dilaudid) 1 mg IV Q2HP PRN PRN Reason: PAIN LEVEL > 6 Last Admin: 08/27/17 11:16 Dose: 1 mg Hydromorphone HCl (Dilaudid) 4 mg PO BID [facility] Insulin Glargine (Lantus) 10 unit SQ BID [facility] Last Admin: 08/27/17 09:18 Dose: 10 unit Insulin Human Lispro (Humalog) 0 unit SQ [facility] PRN Reason: Protocol Last Admin: 08/27/17 11:55 Dose: Not Given Iron Carb/Multivit/[place]/Folic Acid (Multivitamin W/Minerals) 1 tab PO DAILY [facility] Last Admin: 08/27/17 09:18 Dose: 1 tab Lactobacillus Rhamnosus (Culturelle) 1 cap PO DAILY [facility] Last Admin: 08/27/17 09:17 Dose: 1 cap Naloxone HCl (Narcan) 0.1 mg IV Q2MIN PRN PRN Reason: Opiate Reversal Ondansetron HCl (Zofran) 4 mg IV Q4HP PRN PRN Reason: Nausea And Vomiting Last Admin: 08/27/17 09:40 Dose: 4 mg Pantoprazole Sodium (Protonix) 40 mg IV QAMAC [facility] Last Admin: 08/27/17 06:57 Dose: 40 mg Venlafaxine HCl (Effexor Xr) 150 mg PO QDAY [facility] Last Admin: 08/27/17 09:17 Dose: 150 mg Medical - PN: A/P - Time Spent With Patient Total time spent is greater than 50% in coordination of care (as documented) at patient's floor/unit and/or counseling patient: - Narrative A/P Narrative: A/P Acute on Chr renal failure: Etiology,? appreciate nephrology consult, pt clearly has fluid overload, continue IV lasix for now, monitor renal function. Flud overload: due to ckd? echo pending, D VT neg, Confustion: etiology? no clear e/o infection, patient is on opiates also got some xanaflex which can cause confusion, monitor for now, hold oral morphine. Neuropathy/ Pain: Hold oral morphine, as can cause TELEPHONE APPOINTMENT CLERK adverse effects in patients with CKd, IV dilaudid prn for now,resume oral dilaudid, and incrase dose of iv dilaudid to 1mg q2hrs prn, consider fentanyl patch. Right leg weakness: likely secondary to swelling, but she was in the ER for back pain, a few days ago, denies this now, has no spine tenderness, will see how she does with diuresis, get MRI lumbar and thoracic spine. DM: Type 1 DM, with retinopathy and nephropathy, neuropathy, lantus and sliding scale insulin. HTN: resume meds, hold losartan for now, and resume coreg (cut dose to 6.25bid) , amlodipine. HLD : continue statin. atoravastatin 20 qhs. Chest pain/ LEft upper quadarant pain: etiology? band like sensation? repeat trop, ekg, and await echo read, MRI thoracic spine sonam in light of lower extremit weakness. I would have expected howard weakness for a T spine lesion, but given there is a band like sensation, will see if there is any underlying pathology. DVT hep sq Diet carb consistent, renal diet Full code. Medical - PN: Qual - VTE Deep Vein Thrombosis/Pulmonary Embolism Present on Admission: Yes
[2017-08-27 14:12] LABS: Blood Urea Nitrogen 50 mg/dl (6-20)
[2017-08-27] MEDS ORDERED: LORazepam 2 MG/ML VIAL ONE (15:56)
--- NOTE | 2017-08-27 16:42 | Magnetic Resonance Report ---
CLINICAL INFORMATION: Back pain COMPARISON: None. TECHNIQUE: Sagittal T2, sagittal T1 FLAIR, sagittal STIR and axial T2 images were acquired. FINDINGS: The thoracic spine is anatomically aligned and there are no marrow signal abnormalities. The thoracic cord is normal in contour and caliber of homogeneous signal. Central canal lateral recess and IV foramen are normal width at each level. All discs are well-hydrated - no evidence of extrusion or protrusion. There is moderate localized edema in the subcutaneous fat at the T11, T12 and L1 region IMPRESSION: Thoracic spine is unremarkable. There is moderate localized edema in the subcutaneous fat in the T10-L1 region. This may be related trauma Interpreted and Authenticated by: Joe Guevara 08/27/17
--- NOTE | 2017-08-27 17:10 | Nephrology Progress Note ---
Subjective Patient information: Note initiated : 08/27/17 at 5:08 pm Service Date, if different from initiated Date: [] Patient: Paige Lemos 46 y/o F admitted on 08/26/17 for Chest Tightness , Leg Swelling, Kidney Failure. Chief Complaint: [] Principal diagnosis: LE weakness, fluid excess Interval history: Patient continues to have chest pain in left upper quadrant radiating to back she continues to have right LE weakness she feels fatigued Her LE edema has improved with diuresis BP is low normal renal function is stable Pertinent ROS: as above Objective - Vital Signs Vital signs: Vital Signs Temp Pulse Resp BP BP Pulse Ox 08/27/17 12:01 98.0 F 16 119/56 91 08/27/17 08:02 112/62 08/27/17 04:03 99.0 F H 16 118/74 92 08/27/17 00:02 122/71 08/26/17 22:51 148/73 08/26/17 22:35 98.9 F 08/26/17 21:49 78 145/69 96 08/26/17 21:32 155/83 08/26/17 21:17 76 114/79 96 08/26/17 21:02 74 134/77 98 08/26/17 20:47 97 H 133/73 81 L 08/26/17 20:45 78 138/77 100 08/26/17 20:39 99.0 F H 18 138/77 100 08/26/17 20:30 118/78 08/26/17 20:17 75 24 H 99/89 96 08/26/17 20:02 76 16 67/51 98 08/26/17 19:46 74 17 152/93 96 08/26/17 19:31 18 144/82 08/26/17 19:16 16 127/87 08/26/17 19:01 72 14 143/43 97 08/26/17 19:00 74 11 L 87 L 08/26/17 18:46 49 L 10 L 125/102 81 L 08/26/17 18:32 73 14 105/69 95 08/26/17 18:24 73 19 96/67 99 Intake and Output 08/27/17 08/27/17 08/27/17 05:59 13:59 21:59 Intake Total 110 / 110 Output Total 1550 / 1550 750 / 750 Balance -1440 / -1440 -750 / -750 Intake: Oral 110 / 110 Output: Urine Catheter Amount 1550 / 1550 750 / 750 Other: Meal Breakfast Percent of Meal Consumed 25% Feeding Ability Independent Intake & Output: Intake & Output 08/27/17 08/27/17 08/27/17 05:59 13:59 21:59 Intake Total 110 / 110 Output Total 1550 / 1550 750 / 750 Balance -1440 / -1440 -750 / -750 Intake: Oral 110 / 110 Output: Urine Catheter Amount 1550 / 1550 750 / 750 Other: Meal Breakfast Percent of Meal Consumed 25% Feeding Ability Independent - General Appearance General appearance: appears started age, chronically ill EENT: mucous membranes moist Neck: no JVD Respiratory: clear Cardiology: no rub, edema, normal S1, normal S2 Gastrointestinal: no tenderness, no guarding Integumentary: no rash, warm and dry Neurologic: alert and oriented x3 Musculoskeletal: no erythema, no cyanosis - Lab 08/27/17 03:45 08/27/17 13:19 Most recent lab results Calcium 9.4 mg/dl (8.6-10.4) 08/27/17 13:19 Phosphorus 7.4 mg/dL (2.7-4.5) H* 08/27/17 03:45 Magnesium 2.3 mg/dL (1.6-2.5) 08/27/17 03:45 Assessment and Plan (1) Acute on chronic renal failure acute on chronic renal failure: renal function has declined, ? etiology but slowly improving at present fluid status is better better BP control anemia of CKD with normal tsat, b12 and folate Phos remains elevated will change binder to renvela LE weakness? etiology, MRI spine done today, awaiting result ct IV diuresis for another day will change binders to renvela will cut back on amlodipine dose to 5mg she will need aranesp for anemia, will follow and initiate if needed no indication for MARKETING COMM[employer]ITY LIAISON yet will follow along appreciate hospitalist help with managing this patient Status: Acute (2) Fluid overload Status: Acute
--- NOTE | 2017-08-27 18:14 | Magnetic Resonance Report ---
CLINICAL INFORMATION: Renal failure the ICU right leg weakness vessels leg syndrome. COMPARISON: None. TECHNIQUE: Sagittal T1 FLAIR, STIR, fast spin echo T2, axial T2 weighted images were acquired. FINDINGS: Moderate motion artifact partially obscures the images. Axial images were not obtained. Lumbar spine is anatomically aligned and there are no marrow signal abnormalities. The conus medullaris is obscured and cannot be evaluated. Cauda equina roots are grossly normal. The discs are well-hydrated and show no evidence of extrusion or protrusion. No soft tissue abnormality. IMPRESSION: Limited exam due to motion artifact - no abnormality. Interpreted and Authenticated by: Joe Guevara 08/27/17
[2017-08-27] MEDS ORDERED: HYDROmorphone 2 MG TABLET PO SCH (21:00)
[2017-08-28] MEDS: diphenhydrAMINE 50 MG/ML VIAL IV PRN ×2 (03:12→10:26)
[2017-08-28] MEDS: HYDROmorphone 2 MG/ML SYRINGE IV PRN ×5 (03:13→22:30)
[2017-08-28] MEDS: FUROSEMIDE 100 MG/10 ML VIAL IV SCH (05:34)
[2017-08-28 07:00] LABS: Basophils # (Auto) 0 K/mcL (0.0-0.3); Basophils % (Auto) 0.4 % (0.0-2.0); Eosinophils # (Auto) 0.4 K/mcL (0.0-0.7); Eosinophils % (Auto) 7.8 % (0.0-7.0); Granulocytes % (Auto) 41.4 % (38.0-78.0); Lymphocytes # (Auto) 2.3 K/mcL (1.5-4.8); Lymphocytes % (Auto) 42.1 % (15.5-49.0); Mean Cell Volume 86.8 fL (80.0-100.0); Mean Corpuscular HGB Conc 33.4 g/dL (31.0-36.0); Monocytes # (Auto) 0.5 K/mcL (0.1-0.9); Monocytes % (Auto) 8.3 % (1.0-12.0); Platelet Count 483 K/mcL (140-440); RBC 3.44 M/mcL (4.00-5.20); Red Cell Distribution Width 13.4 % (11.5-14.5)
[2017-08-28 07:53] LABS: ALT/SGPT 10 U/l (0-40); Albumin 3.6 gm/dL (3.2-5.2); Alkaline Phosphatase 69 U/L (39-117); Bilirubin,Direct < 0.2 mg/dL (0.0-0.3); Blood Urea Nitrogen 46 mg/dl (6-20); Gamma Glutamyl Transpeptidase 18 U/L (5-36); Magnesium 2.2 mg/dL (1.6-2.5); Uric Acid 10.1 mg/dL (2.5-8.0)
[2017-08-28] MEDS: INSULIN LISPRO 1 UNIT/0.01 ML UNIT SQ SCH ×4 (08:22→20:32)
[2017-08-28] MEDS: VENLAFAXINE 37.5 MG TAB.ER.24H PO SCH (08:58)
[2017-08-28] MEDS: LACTOBACILLUS 1 CAPSULE PO SCH (08:59)
[2017-08-28] MEDS: PANTOPRAZOLE 40 MG VIAL IV SCH (08:59)
[2017-08-28] MEDS: HYDROmorphone 2 MG TABLET PO SCH ×2 (09:00→20:31)
[2017-08-28] MEDS: MULTIVIT,THER IRON,CA,FA & MIN 1 TABLET PO SCH (09:00)
[2017-08-28] MEDS: HEPARIN 5,000 UNIT/ML VIAL SQ SCH ×2 (09:00→20:31)
[2017-08-28] MEDS: amLODIPine 10 MG TABLET PO SCH (09:00)
[2017-08-28] MEDS: ATORVASTATIN 20 MG TABLET PO SCH (09:00)
[2017-08-28] MEDS: CARVEDILOL 12.5 MG TABLET PO SCH ×2 (09:02→18:39)
--- NOTE | 2017-08-28 09:23 | Cat Scan Report ---
CLINICAL INFORMATION: Right leg weakness question CVA. COMPARISON: 05/13/[address] TECHNIQUE: 2.5 mm helical slices were obtained in the skull base to vertex. Following reconstruction, axial reformatted images were reviewed at bone and parenchymal windows. The exam was performed using radiation dose optimization techniques including, but not limited to, automated exposure control, adjustment of the mA and/or kV according to patient size and use of iterative reconstruction technique. FINDINGS: The ventricles, sulci, fissures, and cisterns are symmetrically enlarged compatible mild atrophy - more severe than expected merely for age. There are no extra-axial fluid collections or masses appreciated. There may be a small subtle chronic wedge-shaped infarct in the left occipital lobe. There is mild patchy low attenuation within the deep cerebral white matter which may represent ischemia or, less likely, demyelination. This is new from the previous study. There is no intracerebral hemorrhage, mass effect, edema or other acute intracerebral abnormality. There is increased attenuation within the visualized left ocular globe (85 Hounsfield units) which is suspicious for vitreous hemorrhage. This was not present on the previous study IMPRESSION: 1. No acute intracerebral abnormality 2. Mild atrophy (more than expected for age) and minimal patchy ischemia versus demyelination in the deep cerebral white matter - new from the previous study 11 years prior. Possible small wedge-shaped chronic infarct in the left occipital lobe. Suggest brain MRI for more specific evaluation. 3. Acute hemorrhage in the left ocular globe Interpreted and Authenticated by: Joe Guevara 08/28/17
--- NOTE | 2017-08-28 09:34 | XRay Report ---
CLINICAL INFORMATION: Right hip pain COMPARISON: 03/06/2008. FINDINGS: Both SI and hip joints are normal in width and alignment without arthritic change. No osseous abnormality. Minor ossification adjacent to the left greater trochanter is stable from previous study. Soft tissues are normal IMPRESSION: Negative Interpreted and Authenticated by: Joe Guevara 08/28/17
[2017-08-28] MEDS: INSULIN GLARGINE, HUMAN 1 UNIT/0.01 ML SQ SCH ×2 (10:09→20:32)
[2017-08-28] MEDS: ONDANSETRON 4 MG/2 ML VIAL IV PRN ×2 (10:14→14:20)
--- NOTE | 2017-08-28 10:51 | Internal Med Progress Note ---
Medical - PN: Subj Patient information: Note initiated : 08/28/17 at 10:48 am Service Date, if different from initiated Date: [] Patient: Paige Lemos a 47 y/o F admitted on 08/26/17 for Chest Tightness , Leg Swelling, Kidney Failure. Chief Complaint: [] Interval history: Ms. Lemos is a 46 year old F with h/o DM, CKD stage 4, HTN, who presents to the ER with complaints of weakness, edema in howard lower extremities and confusion. She was asked by her door clamp operator to c ome to the ER after she reported 15lbs weight gain in 2 days. The patient notes that she was not feeling well for 2 days, has been weak and fatigued, tired, short of breath on exertion, she notes that she has been have increased swelling in both her feet since 2 d ays, noted she likely gained 15 lbs over 2 days. She notes she has pain in the left upper abdomen, which lasts for a minute or so, sharp/ to pressure like sensation, radiating to the back, she has been having nausea and vomiting, and initially thought this was secondary to same. She has some dizziness. the patient also reports that since this AM she has more weakness in the right lower extremity, she also has decreased sensation in that leg, she tried to walk and her leg gave away. She denies any bowel bladder continence, she denies any slurring of speech or deviation of face. Her who is at the bedside noted that she has been confused, but no facial deviation over the last 2 days, talking to people who are not there and trying to do things while in bed as if doing the laundry In the ER the patient had worsening of her renal function, baseline creat jumped up from 2.4 to 3.7, she had edema feet, trop x 1 neg, ekg shows RBBB, which seems old, no ekg present but old tracing shows rbbb, the patient wbc is normal and ua is negative. She is being admitted to the hospital for further management. She was present to the ER on aug 17, for flank back pain? which she did not report to me, and was given xanaflex, she also takes morphine SR at home, her dose of coreg was adjusted. Aug 28 Patient seen examined, no new complaints still has swelling in the legs and weakness, which is getting better. patient was neg 2700ml overnight with improving renal functino. COntinue IV diuresis Pt still has some weakness in the right LL, which is unchanged than yesterday, able to lift somewhat against gravity, she also notes pain in the chest, a band like sensation? Will repeat Trop again, cxr is negative, echo pending, will get MRI thoracic sine to r/o any spinal pathology, sonam since we are already doing the Ct Lumbar spine. check D dimer and trial of nitro to see if this is cardiac. Aug 29 patient seen examined, no acute issues overnight still has left sided chest pain, uncer the breast, echo is neg, d dmier mildy positive, get VQ scan today The patient also is still quite weak on the right leg, she has no other CHEF ASSISTANT symptoms CT head is neg, but does have new ischecmic focus, she has possible occipital infarct? Will get MRI head to further evaluate, Get CArotid duplex to evaluate her for TIA, Echo is done, and is neg The patient will need ongoing rehab before she can be discharged home as she is not able to perfrom her ADL, will change her status to Inpt today, anticipating 2 more days of therapy and workup as needed. He edema today is much better MRI L and T spine reviewed. Labs reviewed. Pertinent ROS: Denies headache, dizziness left sided chest pain, below breast ,pressure. Denies cough or shortness of breath Denies abdominal pain, nausea or vomiting. - Constitutional Vitals: Vital Signs Temp Pulse Resp BP Pulse Ox 98.7 F 71 18 181/80 95 08/28/17 08:15 08/27/17 16:00 08/28/17 08:15 08/28/17 08:15 08/28/17 08:15 Period Temp Pulse Resp BP Sys/Toro Pulse Ox Last 24 Hr 98.0 F-98.7 F 71 16-18 110-181/56-90 91-95 Intake and Output 08/27/17 08/28/17 08/28/17 21:59 05:59 13:59 Output Total 2250 / 2250 Balance -2250 / -2250 Weight 181 lb 3.2 oz Intake & Output: Intake & Output 08/27/17 08/28/17 08/28/17 21:59 05:59 13:59 Output Total 2250 / 2250 Balance -2250 / -2250 Weight 181 lb 3.2 oz Output: Urine Catheter Amount 2249 / 2249 Exam: Constitutional; Afebrile, cooperative, alert, not in distress. Eyes- No icterus, , No periorbital swelling Ears- Ext ear normal, hearing normal to conversation. Neck- Midline trachea, supple Respiratory system: Air Entry equal on both sides, No crackles or wheezing, no rhonchi. CVS- Rate rhythm regular, S1,S2 heard, no gallop, no rub. Abdomen- Soft nontender abdomen, no organomegaly, no tenderness, no guarding or rigidity, CHEF ASSISTANT- AOOx3, moving all extremities, right leg weak, 3-4/5, Knee DTR present, +++ . left DTR is ++,. ankle howard absent, babinski equivocal . Medical - PN: Obj Da - Labs CBC & Chem 7: 08/28/17 03:40 08/28/17 03:40 Labs: Abnormal Lab Results 08/28/17 08/28/17 08/27/17 03:40 03:40 13:19 RBC 3.44 L Hgb 10.0 L Hct 29.9 L Plt Count 483 H Eos % (Auto) 7.8 H D-Dimer Sodium Chloride 95 L Carbon Dioxide Anion Gap 18.0 H BUN 46 H 50 H Creatinine 3.6 H 3.3 H Glucose 65 L Uric Acid 10.1 H Phosphorus 6.2 H* TIBC NT-Pro-B Natriuret Pep Triglycerides 242 H Amylase Urine Protein 08/27/17 08/27/17 08/27/17 13:19 07:59 03:45 RBC Hgb Hct Plt Count Eos % (Auto) D-Dimer 0.78 H Sodium Chloride Carbon Dioxide Anion Gap BUN 52 H Creatinine 3.4 H Glucose Uric Acid 8.7 H Phosphorus 7.4 H* TIBC 221 L NT-Pro-B Natriuret Pep Triglycerides 389 H Amylase Urine Protein 08/27/17 08/26/17 08/26/17 03:45 19:54 19:08 RBC 3.06 L 3.29 L Hgb 8.9 L 9.7 L Hct 26.4 L 28.3 L Plt Count 456 H Eos % (Auto) 7.5 H 8.8 H D-Dimer Sodium Chloride Carbon Dioxide Anion Gap BUN Creatinine Glucose Uric Acid Phosphorus TIBC NT-Pro-B Natriuret Pep 441.8 H Triglycerides Amylase 23 L Urine Protein 08/26/17 08/26/17 18:21 17:10 RBC Hgb Hct Plt Count Eos % (Auto) D-Dimer Sodium 131 L Chloride 93 L Carbon Dioxide 21 L Anion Gap 17.0 H BUN 55 H Creatinine 3.7 H Glucose Uric Acid Phosphorus TIBC NT-Pro-B Natriuret Pep Triglycerides Amylase Urine Protein 30 A Meds: Medications Amlodipine Besylate (Norvasc) 10 mg PO QDAY [facility] Last Admin: 08/28/17 09:00 Dose: 10 mg Atorvastatin Calcium (Lipitor) 20 mg PO QDAY [facility] Last Admin: 08/28/17 09:00 Dose: 20 mg Carvedilol (Coreg) 12.5 mg PO BIDCC [facility] Dextrose (Dextrose 50%) 0 ml IV UD PRN PRN Reason: Hypoglycemia Diagnostic Test (Pha) (Accu-Chek) 1 each FS ACHS [facility] Last Admin: 08/28/17 08:21 Dose: 1 each Diphenhydramine HCl (Benadryl) 12.5 mg IV Q4HP PRN PRN Reason: Allergic Symptoms Last Admin: 08/28/17 10:26 Dose: 12.5 mg Furosemide (Lasix) 40 mg PO BIDD [facility] Glucose (Insta-Glucose) 15 gm PO PRN PRN PRN Reason: Hypoglycemia Heparin Sodium (Porcine) (Heparin) 5,000 unit SQ Q12 [facility] Last Admin: 08/28/17 09:00 Dose: 5,000 unit Hydromorphone HCl (Dilaudid) 1 mg IV Q2HP PRN PRN Reason: PAIN LEVEL > 6 Last Admin: 08/28/17 03:13 Dose: 1 mg Hydromorphone HCl (Dilaudid) 4 mg PO BID [facility] Last Admin: 08/28/17 09:00 Dose: 4 mg Insulin Glargine (Lantus) 10 unit SQ BID [facility] Last Admin: 08/28/17 10:09 Dose: 5 unit Insulin Human Lispro (Humalog) 0 unit SQ ACHS [facility] PRN Reason: Protocol Last Admin: 08/28/17 08:22 Dose: Not Given Iron Carb/Multivit/Manager Personal/Folic Acid (Multivitamin W/Minerals) 1 tab PO DAILY [facility] Last Admin: 08/28/17 09:00 Dose: 1 tab Lactobacillus Rhamnosus (Culturelle) 1 cap PO DAILY [facility] Last Admin: 08/28/17 08:59 Dose: 1 cap Naloxone HCl (Narcan) 0.1 mg IV Q2MIN PRN PRN Reason: Opiate Reversal Nitroglycerin (Nitrostat) 0.4 mg SL Q5M PRN PRN Reason: Chest Pain Ondansetron HCl (Zofran) 4 mg IV Q4HP PRN PRN Reason: Nausea And Vomiting Last Admin: 08/28/17 10:14 Dose: 4 mg Pantoprazole Sodium (Protonix) 40 mg IV QAMAC [facility] Last Admin: 08/28/17 08:59 Dose: 40 mg Venlafaxine HCl (Effexor Xr) 150 mg PO QDAY [facility] Last Admin: 08/28/17 08:58 Dose: 150 mg Medical - PN: A/P - Time Spent With Patient Total time spent is greater than 50% in coordination of care (as documented) at patient's floor/unit and/or counseling patient: - Narrative A/P Narrative: A/P Acute on Chr renal failure: Etiology,? appreciate nephrology consult, switch IV lasix to oral now that she is -5000ml since admission, and renal function bumped up slightly. Fluid overload: due to ckd? 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 Confusion: etiology? no clear e/o infection, patient is on opiates also got some xanaflex which can cause confusion, monitor for now, hold oral morphine. clinically resolved. Neuropathy/ Pain: Hold oral morphine, as can cause CHEF ASSISTANT adverse effects in patients with CKd, IV dilaudid prn for now,resume oral dilaudid, and incrase dose of iv dilaudid to 1mg q2hrs prn, consider fentanyl patch, but pain has not been an issue so far. Right leg weakness: etiology unclear, she has positiv reflex, but decreased strength and sensation, MRI L spine althought not of great quality did not show any spinal pathology, T spine is neg too, CT head is negative. Its plausible she has Upper motor neuron lesion due to a small CVA / lacunar infarct, will get MRI head and carotid duplex done. twice daily physical therapy to help . DM: Type 1 DM, with retinopathy and nephropathy, neuropathy, lantus and sliding scale insulin. HTN: resume meds, hold losartan for now, and resume coreg and amlodipine, incrsae dose of coreg to 12.5. HLD : continue statin. increase dose to 40qhs, Chest pain/ LEft upper quadrant pain: etiology? T spine mri neg, get VQ scan. trop is neg, x 3, on IV ppi DVT hep sq Diet carb consistent, renal diet Full code. Medical - PN: Qual - VTE Deep Vein Thrombosis/Pulmonary Embolism Present on Admission: Yes
--- NOTE | 2017-08-28 13:14 | Ultrasound Report ---
CLINICAL INFORMATION: CVA/TIA COMPARISON: None. TECHNIQUE: Spectral Doppler velocity measurements were obtained in the proximal, mid and distal common and internal carotid, both vertebral and proximal external carotid arteries bilaterally. Supplemental color and power Doppler imaging was also obtained to optimize stenosis detection. In reporting, any internal carotid stenosis was indirectly quantified comparing the distal internal carotid velocity. For ratio comparison, the internal carotid artery, at the level of stenosis, was utilized in the numerator and the normal distal internal carotid artery velocity was utilized as the denominator. Velocities are validated with angiographic measurements extrapolated from diameter data - as defined by the Society of Radiologists in Ultrasound Consensus Conference .Radiology 2003; 229; 340 - 346. FINDINGS: See worksheet by the technologist for velocities in PACS IMPRESSION: Both common, internal and external carotid arteries are widely patent. There is mild intimal thickening in both carotid bifurcations. Antegrade flow present in both vertebral arteries. Please correlate with CTA CT Angiography or MRA MR Angiography if surgery is contemplated. Interpreted and Authenticated by: Joe Guevara 08/28/17
[2017-08-28] MEDS ORDERED: LORazepam 2 MG/ML VIAL IV ONE (13:32)
[2017-08-28] MEDS ORDERED: FUROSEMIDE 40 MG TABLET PO SCH (16:00)
--- NOTE | 2017-08-28 17:11 | Magnetic Resonance Report ---
CLINICAL INFORMATION: Decreased mental status and excessive right leg movement COMPARISON: Head CT from 08/28/2017 TECHNIQUE:Sagittal T1 FLAIR, axial T1 FLAIR, T2 FLAIR propeller, T2 propeller, gradient, diffusion, ADC and coronal T2 weighted images were acquired. FINDINGS: The ventricles, sulci, fissures and cisterns are symmetrically enlarged compatible with mild atrophy more than expected for age and there are no extra-axial fluid collection or masses appreciated. There are scattered high signal foci in the deep periventricular white matter and also scattered throughout the subcortical white matter. These likely reflect ischemia or, less likely, demyelinating plaques. There are two high signal foci in the central jes - both less than 8 mm. There are no regions of restricted diffusion to suggest acute infarct. There is no hemorrhage, mass effect, edema or other acute intracerebral finding. Signal void in intracerebral arteries, extra-axial cranial nerves and pituitary are normal. There is a large amount of acute hemorrhage filling both the anterior and posterior chambers of the left ocular globe IMPRESSION: 1. Vague high signal foci throughout the deep periventricular white matter and multiple lesions also scattered in the subcortical white matter. There are two foci in the central jes - both less than 8 mm . This may represent a chronic ischemia from a multitude of causes including illicit drug use, migraine headache, small vessel disease (polyarteritis nodosa , lupus and other collagen vascular diseases) arteriosclerotic disease seen in diabetes. MS is possible, but less likely, given the lack of classic distribution Consider fluoroscopic guided lumbar puncture for CSF fluid analysis which may either be supportive or refutative of MS. 2. Large acute hemorrhage filling the anterior/ posterior chambers of the left ocular globe. Interpreted and Authenticated by: Joe Guevara 08/28/17
[2017-08-29] MEDS: diphenhydrAMINE 50 MG/ML VIAL IV PRN ×2 (00:27→20:44)
[2017-08-29] MEDS: HYDROmorphone 2 MG/ML SYRINGE IV PRN ×5 (02:28→21:38)
[2017-08-29] MEDS: ONDANSETRON 4 MG/2 ML VIAL IV PRN ×2 (02:28→08:17)
[2017-08-29 06:22] LABS: Basophils # (Auto) 0 K/mcL (0.0-0.3); Basophils % (Auto) 0.3 % (0.0-2.0); Eosinophils # (Auto) 0.4 K/mcL (0.0-0.7); Eosinophils % (Auto) 5.8 % (0.0-7.0); Granulocytes % (Auto) 49.2 % (38.0-78.0); Lymphocytes # (Auto) 2.4 K/mcL (1.5-4.8); Lymphocytes % (Auto) 37.4 % (15.5-49.0); Mean Cell Volume 85.9 fL (80.0-100.0); Mean Corpuscular HGB Conc 33.2 g/dL (31.0-36.0); Mean Corpuscular Hemoglobin 28.5 pg (26.0-34.0); Monocytes # (Auto) 0.5 K/mcL (0.1-0.9); Monocytes % (Auto) 7.3 % (1.0-12.0); Platelet Count 484 K/mcL (140-440); Red Cell Distribution Width 13.4 % (11.5-14.5)
[2017-08-29 06:40] LABS: ALT/SGPT 10 U/l (0-40); Albumin 3.9 gm/dL (3.2-5.2); Albumin/Globulin Ratio 1.1 (1.0-2.3); Alkaline Phosphatase 70 U/L (39-117); Bilirubin,Direct < 0.2 mg/dL (0.0-0.3); Blood Urea Nitrogen 52 mg/dl (6-20); Gamma Glutamyl Transpeptidase 13 U/L (5-36); Magnesium 2.2 mg/dL (1.6-2.5); Uric Acid 9.7 mg/dL (2.5-8.0)
[2017-08-29] MEDS ORDERED: 0.45 % SODIUM CHLORIDE 1,000 ML IV SCH (08:00)
[2017-08-29] MEDS ORDERED: PROCHLORPERAZINE 10 MG/2 ML VIAL IV ONE (09:42)
[2017-08-29] MEDS ORDERED: diphenhydrAMINE 50 MG/ML VIAL IV ONE (09:46)
[2017-08-29] MEDS ORDERED: SUMAtriptan SUCCINATE 6 MG/0.5 ML VIAL SQ ONE (09:47)
[2017-08-29] MEDS: PANTOPRAZOLE 40 MG VIAL IV SCH (10:12)
[2017-08-29] MEDS ORDERED: BACLOFEN 10 MG TABLET PO ONE (10:31)
[2017-08-29] MEDS: INSULIN LISPRO 1 UNIT/0.01 ML UNIT SQ SCH ×4 (11:12→20:41)
[2017-08-29] MEDS: MULTIVIT,THER IRON,CA,FA & MIN 1 TABLET PO SCH (11:17)
[2017-08-29] MEDS: HYDROmorphone 2 MG TABLET PO SCH ×2 (11:17→20:42)
[2017-08-29] MEDS: amLODIPine 10 MG TABLET PO SCH (11:18)
[2017-08-29] MEDS: INSULIN GLARGINE, HUMAN 1 UNIT/0.01 ML SQ SCH ×3 (11:18→20:41)
[2017-08-29] MEDS: CARVEDILOL 12.5 MG TABLET PO SCH ×2 (11:18→18:33)
[2017-08-29] MEDS: HEPARIN 5,000 UNIT/ML VIAL SQ SCH ×2 (11:19→20:41)
[2017-08-29] MEDS: LACTOBACILLUS 1 CAPSULE PO SCH (11:29)
[2017-08-29] MEDS: ATORVASTATIN 20 MG TABLET PO SCH (11:29)
[2017-08-29] MEDS: VENLAFAXINE 37.5 MG TAB.ER.24H PO SCH (11:30)
[2017-08-29] MEDS ORDERED: ACETAMINOPHEN 1,000 MG/100 ML BOTTLE IV ONE (11:41)
--- NOTE | 2017-08-29 12:52 | Internal Med Progress Note ---
Medical - PN: Subj Patient information: Note initiated : 08/29/17 at 12:47 pm Service Date, if different from initiated Date: [] Patient: Paige Lemos a 47 y/o F admitted on 08/28/17 for Chest Tightness , Leg Swelling, Kidney Failure. Chief Complaint: [] Interval history: Ms. Lemos is a 46 year old F with h/o DM, CKD stage 4, HTN, who presents to the ER with complaints of weakness, edema in howard lower extremities and confusion. She was asked by her direct marketing executive to c ome to the ER after she reported 15lbs weight gain in 2 days. The patient notes that she was not feeling well for 2 days, has been weak and fatigued, tired, short of breath on exertion, she notes that she has been have increased swelling in both her feet since 2 d ays, noted she likely gained 15 lbs over 2 days. She notes she has pain in the left upper abdomen, which lasts for a minute or so, sharp/ to pressure like sensation, radiating to the back, she has been having nausea and vomiting, and initially thought this was secondary to same. She has some dizziness. the patient also reports that since this AM she has more weakness in the right lower extremity, she also has decreased sensation in that leg, she tried to walk and her leg gave away. She denies any bowel bladder continence, she denies any slurring of speech or deviation of face. Her who is at the bedside noted that she has been confused, but no facial deviation over the last 2 days, talking to people who are not there and trying to do things while in bed as if doing the laundry In the ER the patient had worsening of her renal function, baseline creat jumped up from 2.4 to 3.7, she had edema feet, trop x 1 neg, ekg shows RBBB, which seems old, no ekg present but old tracing shows rbbb, the patient wbc is normal and ua is negative. She is being admitted to the hospital for further management. She was present to the ER on aug 17, for flank back pain? which she did not report to me, and was given xanaflex, she also takes morphine SR at home, her dose of coreg was adjusted. Aug 28 Patient seen examined, no new complaints still has swelling in the legs and weakness, which is getting better. patient was neg 2700ml overnight with improving renal functino. COntinue IV diuresis Pt still has some weakness in the right LL, which is unchanged than yesterday, able to lift somewhat against gravity, she also notes pain in the chest, a band like sensation? Will repeat Trop again, cxr is negative, echo pending, will get MRI thoracic sine to r/o any spinal pathology, sonam since we are already doing the Ct Lumbar spine. check D dimer and trial of nitro to see if this is cardiac. Aug 29 patient seen examined, no acute issues overnight still has left sided chest pain, uncer the breast, echo is neg, d dmier mildy positive, get VQ scan today The patient also is still quite weak on the right leg, she has no other [employer] symptoms CT head is neg, but does have new ischecmic focus, she has possible occipital infarct? Will get MRI head to further evaluate, Get CArotid duplex to evaluate her for TIA, Echo is done, and is neg The patient will need ongoing rehab before she can be discharged home as she is not able to perfrom her ADL, will change her status to Inpt today, anticipating 2 more days of therapy and workup as needed. He edema today is much better MRI L and T spine reviewed. Labs reviewed. Aug 30 Patient seen examined this AM has a severe migraine headache, lying in bed. not wanting to do much Her renal functino is slightly worse today, hold diuretics and given some IVF, she is neg 6500 since admission Her Head MRI is neg, some small whilte matter disdase with broad differential, at this time I will have the patient see neurology as outpatient for further evaluaton the patient did try to walk yesterday. As far as he headache is concerned. she cannot have nsaids, and is allergic ( anaphylatic to most anti migrane drugs) give IV tylenol and baclofen (she reports relieve by this muscle relaxant in the past) Pertinent ROS: Prseent migraine headache, still has left sided chest pain, intermittently, no palpitations. Denies cough or shortness of breath Denies abdominal pain, nausea or vomiting. - Constitutional Vitals: Vital Signs Temp Pulse Resp BP Pulse Ox 97.3 F 86 20 153/85 95 08/29/17 08:00 08/28/17 15:48 08/29/17 08:00 08/29/17 08:00 08/29/17 08:00 Period Temp Pulse Resp BP Sys/Toro Pulse Ox Last 24 Hr 97.3 F-98.7 F 86 16-20 105-153/73-85 90-97 Intake and Output 08/28/17 08/29/17 08/29/17 21:59 05:59 13:59 Intake Total 240 / 240 Output Total 450 / 450 550 / 550 Balance -210 / -210 -550 / -550 Weight 180 lb Intake & Output: Intake & Output 08/28/17 08/29/17 08/29/17 21:59 05:59 13:59 Intake Total 240 / 240 Output Total 450 / 450 550 / 550 Balance -210 / -210 -550 / -550 Weight 180 lb Intake: Oral 240 / 240 Output: Urine Catheter Amount 450 / 450 550 / 550 Other: Meal Nourishment/Supplement # Bowel Movements 1 Exam: Constitutional; Afebrile, cooperative, alert, not in distress. Eyes- No icterus, , No periorbital swelling Ears- Ext ear normal, hearing normal to conversation. Neck- Midline trachea, supple Respiratory system: Air Entry equal on both sides, No crackles or wheezing, no rhonchi. CVS- Rate rhythm regular, S1,S2 heard, no gallop, no rub. Abdomen- Soft nontender abdomen, no organomegaly, no tenderness, no guarding or rigidity, [employer]- AOOx3, right leg still weak, Medical - PN: Obj Da - Labs CBC & Chem 7: 08/29/17 04:12 08/29/17 04:12 Labs: Abnormal Lab Results 08/29/17 08/29/17 08/28/17 04:12 04:12 03:40 RBC 3.50 L Hgb 10.0 L Hct 30.1 L Plt Count 484 H Eos % (Auto) D-Dimer Sodium Chloride 91 L 95 L Carbon Dioxide Anion Gap 18.0 H BUN 52 H 46 H Creatinine 4.0 H 3.6 H Glucose 188 H 65 L Uric Acid 9.7 H 10.1 H Phosphorus 5.8 H 6.2 H* TIBC NT-Pro-B Natriuret Pep Triglycerides 215 H 242 H Amylase Urine Protein 08/28/17 08/27/17 08/27/17 03:40 13:19 13:19 RBC 3.44 L Hgb 10.0 L Hct 29.9 L Plt Count 483 H Eos % (Auto) 7.8 H D-Dimer 0.78 H Sodium Chloride Carbon Dioxide Anion Gap BUN 50 H Creatinine 3.3 H Glucose Uric Acid Phosphorus TIBC NT-Pro-B Natriuret Pep Triglycerides Amylase Urine Protein 08/27/17 08/27/17 08/27/17 07:59 03:45 03:45 RBC 3.06 L Hgb 8.9 L Hct 26.4 L Plt Count Eos % (Auto) 7.5 H D-Dimer Sodium Chloride Carbon Dioxide Anion Gap BUN 52 H Creatinine 3.4 H Glucose Uric Acid 8.7 H Phosphorus 7.4 H* TIBC 221 L NT-Pro-B Natriuret Pep Triglycerides 389 H Amylase Urine Protein 08/26/17 08/26/17 08/26/17 19:54 19:08 18:21 RBC 3.29 L Hgb 9.7 L Hct 28.3 L Plt Count 456 H Eos % (Auto) 8.8 H D-Dimer Sodium Chloride Carbon Dioxide Anion Gap BUN Creatinine Glucose Uric Acid Phosphorus TIBC NT-Pro-B Natriuret Pep 441.8 H Triglycerides Amylase 23 L Urine Protein 30 A 08/26/17 17:10 RBC Hgb Hct Plt Count Eos % (Auto) D-Dimer Sodium 131 L Chloride 93 L Carbon Dioxide 21 L Anion Gap 17.0 H BUN 55 H Creatinine 3.7 H Glucose Uric Acid Phosphorus TIBC NT-Pro-B Natriuret Pep Triglycerides Amylase Urine Protein Meds: Medications Amlodipine Besylate (Norvasc) 10 mg PO QDAY [facility] Last Admin: 08/29/17 11:18 Dose: 10 mg Atorvastatin Calcium (Lipitor) 20 mg PO QDAY [facility] Last Admin: 08/29/17 11:29 Dose: 20 mg Carvedilol (Coreg) 12.5 mg PO BIDCC [facility] Last Admin: 08/29/17 11:18 Dose: 12.5 mg Dextrose (Dextrose 50%) 0 ml IV UD PRN PRN Reason: Hypoglycemia Diagnostic Test (Pha) (Accu-Chek) 1 each FS ACHS [facility] Last Admin: 08/29/17 11:11 Dose: 1 each Diphenhydramine HCl (Benadryl) 12.5 mg IV Q4HP PRN PRN Reason: Allergic Symptoms Last Admin: 08/29/17 00:27 Dose: 12.5 mg Glucose (Insta-Glucose) 15 gm PO PRN PRN PRN Reason: Hypoglycemia Heparin Sodium (Porcine) (Heparin) 5,000 unit SQ Q12 [facility] Last Admin: 08/29/17 11:19 Dose: 5,000 unit Hydromorphone HCl (Dilaudid) 1 mg IV Q2HP PRN PRN Reason: PAIN LEVEL > 6 Last Admin: 08/29/17 08:17 Dose: 1 mg Hydromorphone HCl (Dilaudid) 4 mg PO BID [facility] Last Admin: 08/29/17 11:17 Dose: 4 mg Sodium Chloride (Sodium Chloride 0.45%) 1,000 mls @ 84 mls/hr IV .[id number] [facility] Stop: 08/29/17 19:54 Last Admin: 08/29/17 08:21 Dose: 84 mls/hr Insulin Glargine (Lantus) 10 unit SQ BID [facility] Last Admin: 08/29/17 12:09 Dose: Not Given Insulin Human Lispro (Humalog) 0 unit SQ ACHS [facility] PRN Reason: Protocol Last Admin: 08/29/17 11:12 Dose: Not Given Iron Carb/Multivit/Press Tender/Folic Acid (Multivitamin W/Minerals) 1 tab PO DAILY [facility] Last Admin: 08/29/17 11:17 Dose: 1 tab Lactobacillus Rhamnosus (Culturelle) 1 cap PO DAILY [facility] Last Admin: 08/29/17 11:29 Dose: 1 cap Naloxone HCl (Narcan) 0.1 mg IV Q2MIN PRN PRN Reason: Opiate Reversal Nitroglycerin (Nitrostat) 0.4 mg SL Q5M PRN PRN Reason: Chest Pain Ondansetron HCl (Zofran) 4 mg IV Q4HP PRN PRN Reason: Nausea And Vomiting Last Admin: 08/29/17 08:17 Dose: 4 mg Pantoprazole Sodium (Protonix) 40 mg IV QAMAC [facility] Last Admin: 08/29/17 10:12 Dose: 40 mg Venlafaxine HCl (Effexor Xr) 150 mg PO QDAY [facility] Last Admin: 08/29/17 11:30 Dose: 150 mg Medical - PN: A/P - Time Spent With Patient Total time spent is greater than 50% in coordination of care (as documented) at patient's floor/unit and/or counseling patient: - Narrative A/P Narrative: A/P Acute on Chr renal failure: Etiology,? hold lasix, IV half ns 1L today, recheck labs, given worsening renal function. monitor renal function. Acute migraine headache: MRI neg and CT done recnetly, pt allergic all most migraine meds, will consider dihydrogrogotime vs Solumedrol if needed. IV tylenol for now with baclofen, as she notes it helps. Fluid overload: resolvedn ow, neg 6500ml since admisssion,echo is neg for chf, due to ckd? , DVT neg, at home is on lasix 40 qd, hold today, but will need to optimize dose at discharge. 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 Confusion: etiology? no clear e/o infection, patient is on opiates also got some xanaflex which can cause confusion, monitor for now, hold oral morphine. clinically resolved. Neuropathy/ Pain: Hold oral morphine, as can cause [employer] adverse effects in patients with CKd, IV dilaudid prn for now,resume oral dilaudid, and incrase dose of iv dilaudid to 1mg q2hrs prn, consider fentanyl patch, but pain has not been an issue so far. Right leg weakness: etiology unclear, she has positivereflex, but decreased strength and sensation, MRI L spine althought not of great quality did not show any spinal pathology, T spine is neg too, CT head is negative. MRI head has some small white matter lesions, but no cva, will have her see neurology as outpatient. DM: Type 1 DM, with retinopathy and nephropathy, neuropathy, lantus and sliding scale insulin. glucose well controlled. HTN: resume meds, hold losartan for now, and resume coreg and amlodipine, incrsae dose of coreg to 12.5. bp stable. HLD : continue statin. increase dose to 40qhs, Chest pain/ LEft upper quadrant pain: etiology? likely musculoskeletal, T spine mri neg, get VQ scan, results pending, trop is neg, x 3, on IV ppi DVT hep sq Diet carb consistent, renal diet Full code. Medical - PN: Qual - VTE Deep Vein Thrombosis/Pulmonary Embolism Present on Admission: Yes
[2017-08-29] MEDS ORDERED: morphine 15 MG TABLET PO ONE (14:45)
[2017-08-29] MEDS ORDERED: HYDROmorphone 2 MG/ML SYRINGE IV ONE (16:24)
[2017-08-29 17:09] LABS: Blood Urea Nitrogen 48 mg/dl (6-20)
[2017-08-29] MEDS: morphine 15 MG TABLET PO SCH (20:42)
--- NOTE | 2017-08-29 21:46 | Nephrology Progress Note ---
Subjective Patient information: Note initiated : 08/29/17 at 9:44 pm Service Date, if different from initiated Date: [] Patient: Paige Lemos 47 y/o F admitted on 08/28/17 for Chest Tightness , Leg Swelling, Kidney Failure. Chief Complaint: [] Principal diagnosis: LE weakness, fluid excess Interval history: seen today LE weakness little better, able to walk with support c/o headache related to migraine allergic to multiple meds, on opiate pain meds , requesting morphine, explained given renal function not safe to use sustained release, explained morphine and end products may accumulate leading to worsening adverse effects She denies SOB, CP no other issues renal function is a little worse today, ? overdiuresis, diuretics have been held for now Pertinent ROS: as above Objective - Vital Signs Vital signs: Vital Signs Temp Resp BP BP Pulse Ox 08/29/17 15:32 97.8 F 16 133/78 95 08/29/17 12:00 97.5 F 16 143/69 94 08/29/17 08:00 97.3 F 20 153/85 95 08/29/17 03:53 148/81 08/29/17 00:07 109/73 08/29/17 00:04 20 109/73 95 Intake and Output 08/29/17 08/29/17 08/29/17 05:59 13:59 21:59 Intake Total 100 / 100 Output Total 550 / 550 900 / 900 Balance -550 / -550 100 / 100 -900 / -900 Intake: IV 100 / 100 Output: Urine Catheter Amount 550 / 550 900 / 900 Other: Meal Lunch Percent of Meal Consumed 50% # Bowel Movements 1 Weight 180 lb Patient Weight 08/30/17 05:59 Weight 180 lb Intake & Output: Intake & Output 08/29/17 08/29/17 08/29/17 05:59 13:59 21:59 Intake Total 100 / 100 Output Total 550 / 550 900 / 900 Balance -550 / -550 100 / 100 -900 / -900 Weight 180 lb Intake: IV 100 / 100 Output: Urine Catheter Amount 550 / 550 900 / 900 Other: Meal Lunch Percent of Meal Consumed 50% # Bowel Movements 1 - General Appearance General appearance: appears started age, chronically ill EENT: mucous membranes moist Neck: no JVD Respiratory: clear Cardiology: no rub, no edema, normal S1, normal S2 Gastrointestinal: no tenderness, no guarding Integumentary: warm and dry Neurologic: no asterixis, alert and oriented x3 Musculoskeletal: no erythema, no cyanosis Psychiatric: mood/affect appropriate - Lab 08/29/17 04:12 08/29/17 16:21 Most recent lab results Calcium 9.1 mg/dl (8.6-10.4) 08/29/17 16:21 Phosphorus 5.8 mg/dL (2.7-4.5) H 08/29/17 04:12 Magnesium 2.2 mg/dL (1.6-2.5) 08/29/17 04:12 Assessment and Plan (1) Acute on chronic renal failure patient with acute worsening of renal function s.creat up again to 4.0 today recent trend is 3.9-3.6-3.4-.4.0 ? acute vs declining renal function volume status has improved, -6.5L since admission no uremic symptoms no K issues will hold diuretics gentle IV hydration as pt has had poor po intake during hospital stay ct coreg hold losartan on discharge if renal function is stable/improved may discharge home from renal perspective may resume amlodipine at 5mg and discharge on home dose of lasix anemia of CKD: will follow, no indication for aranesp yet Secondary hyperparathyroidism: pt needs to follow low phos diet dietitian has educated the pt and provided handouts I will recheck her labs and follow in a week after discharge tp ensure she is stable appreciate hospitalist help in managing this pt Status: Acute (2) Fluid overload Status: Acute
[2017-08-30] MEDS: HYDROmorphone 2 MG/ML SYRINGE IV PRN ×2 (00:54→11:21)
[2017-08-30] MEDS ORDERED: HYDROmorphone 2 MG/ML SYRINGE ONE (03:58)
[2017-08-30 05:27] LABS: Basophils # (Auto) 0 K/mcL (0.0-0.3); Basophils % (Auto) 0.3 % (0.0-2.0); Eosinophils # (Auto) 0.5 K/mcL (0.0-0.7); Granulocytes % (Auto) 65.1 % (38.0-78.0); Lymphocytes # (Auto) 2.1 K/mcL (1.5-4.8); Lymphocytes % (Auto) 23.2 % (15.5-49.0); Mean Cell Volume 87.6 fL (80.0-100.0); Mean Corpuscular HGB Conc 33.3 g/dL (31.0-36.0); Mean Corpuscular Hemoglobin 29.1 pg (26.0-34.0); Monocytes # (Auto) 0.5 K/mcL (0.1-0.9); Monocytes % (Auto) 5.4 % (1.0-12.0); Platelet Count 426 K/mcL (140-440); RBC 3.23 M/mcL (4.00-5.20); Red Cell Distribution Width 13.8 % (11.5-14.5)
[2017-08-30 05:57] LABS: ALT/SGPT 11 U/l (0-40); Albumin 3.9 gm/dL (3.2-5.2); Albumin/Globulin Ratio 1.2 (1.0-2.3); Alkaline Phosphatase 66 U/L (39-117); Bilirubin,Direct < 0.2 mg/dL (0.0-0.3); Blood Urea Nitrogen 52 mg/dl (6-20); Gamma Glutamyl Transpeptidase 13 U/L (5-36); Magnesium 2.2 mg/dL (1.6-2.5); Uric Acid 8.9 mg/dL (2.5-8.0)
[2017-08-30] MEDS: INSULIN LISPRO 1 UNIT/0.01 ML UNIT SQ SCH (09:16)
[2017-08-30] MEDS: INSULIN GLARGINE, HUMAN 1 UNIT/0.01 ML SQ SCH (09:17)
[2017-08-30] MEDS: morphine 15 MG TABLET PO SCH (09:37)
[2017-08-30] MEDS: ATORVASTATIN 20 MG TABLET PO SCH (09:38)
[2017-08-30] MEDS: LACTOBACILLUS 1 CAPSULE PO SCH (09:38)
[2017-08-30] MEDS: VENLAFAXINE 37.5 MG TAB.ER.24H PO SCH (09:38)
[2017-08-30] MEDS: PANTOPRAZOLE 40 MG VIAL IV SCH (09:38)
[2017-08-30] MEDS: HEPARIN 5,000 UNIT/ML VIAL SQ SCH ×2 (09:38→10:01)
[2017-08-30] MEDS: MULTIVIT,THER IRON,CA,FA & MIN 1 TABLET PO SCH (09:39)
[2017-08-30] MEDS: HYDROmorphone 2 MG TABLET PO SCH (09:39)
[2017-08-30] MEDS: CARVEDILOL 12.5 MG TABLET PO SCH (09:39)
[2017-08-30] MEDS: amLODIPine 10 MG TABLET PO SCH (09:39)
--- NOTE | 2017-08-30 11:34 | Discharge Summary ---
Medical - DS: Prov Patient information: Note initiated : 08/30/17 at 11:31 am Service Date, if different from initiated Date: [] Patient: Paige Lemos 47 y/o F admitted on 08/28/17 for Chest Tightness , Leg Swelling, Kidney Failure. Chief Complaint: [] Date of admission: 08/28/17 10:46 Discharge date: 08/30/17 Primary care physician: Natasha Ly Admitting clinician: Edwin Christensen Consults: nephrology Discharging clinician: Edwin Christensen Medical - DS: Meds - Discharge Medications Active and Home Medications: Home Medications amlodipine 10 mg tablet 10 mg PO QDAY tab 02/10/15 [History Confirmed 08/26/17 Last Taken Unknown] atorvastatin 20 mg tablet 20 mg PO QDAY tab 02/10/15 [History Confirmed Last Taken Unknown] furosemide 40 mg tablet 40 mg PO QDAY tab 02/10/15 [History Confirmed 08/26/17 Last Taken Unknown] insulin glargine 100 unit/mL (3 mL) subcutaneous pen See Dose Instructions SUB- Q .COMPLEX ml 02/10/15 [History Confirmed 08/26/17 Last Taken Unknown] insulin lispro 100 unit/mL subcutaneous solution See Dose Instructions SUB-Q .COMPLEX ml 02/10/15 [History Confirmed 08/26/17 Last Taken Unknown] losartan 50 mg tablet 50 mg PO QDAY tab 02/10/15 [History Confirmed 08/26/17 Last Taken Unknown] multivitamin tablet 1 tab-cap PO QDAY tab 02/10/15 [History Confirmed 08/26/17 Last Taken Unknown] ondansetron 4 mg disintegrating tablet See Dose Instructions PO .COMPLEX tab [History Confirmed 08/26/17 Last Taken Unknown] lactobacillus combination no.8 3 billion cell capsule 3,000 mmu cells PO QDAY [History Confirmed 08/26/17 Last Taken Unknown] carvedilol 6.25 mg tablet 12.5 mg PO BID 05/18/17 [History Confirmed 08/26/17 Last Taken Unknown] hydromorphone 4 mg tablet 4 mg PO BID tab 05/18/17 [History Confirmed 08/26/17 Last Taken Unknown] venlafaxine ER 37.5 mg capsule,extended release 24 hr 150 mg PO QDAY 7 Days #28 cap 05/18/17 [History Confirmed 08/26/17 Last Taken Unknown] calcium acetate 667 mg capsule 667 mg PO TID #90 cap 07/24/17 [Rx Confirmed 11/08 Last Taken Unknown] morphine 15 mg immediate release tablet 15 mg PO BID tab 07/24/17 [History Confirmed 08/26/17 Last Taken Unknown] tiZANidine [Zanaflex] 2 mg PO TIDP PRN #30 tab 08/17/17 [Rx Confirmed 08/26/17 Last Taken Unknown] Medical - DS: Hosp Hospital course: Ms. Lemos is a 46 year old F with h/o DM, CKD stage 4, HTN, who presented to the ER with complaints of weakness, edema in howard lower extremities and confusion. She was asked by her clinical services professional to come to the ER after she reported 15lbs weight gain in 2 days. The patient notes that she was not feeling well for 2 days, has been weak and fatigued, tired, short of breath on exertion, she notes that she has been have increased swelling in both her feet since 2 d ays, noted she likely gained 15 lbs over 2 days. She notes she has pain in the left upper abdomen, which lasts for a minute or so, sharp/ to pressure like sensation, radiating to the back, she has been having nausea and vomiting, and initially thought this was secondary to same. She has some dizziness. the patient also reports that since this AM she has more weakness in the right lower extremity, she also has decreased sensation in that leg, she tried to walk and her leg gave away. She denies any bowel bladder continence, she denies any slurring of speech or deviation of face. Her who is at the bedside noted that she has been confused over the last few days. In the ER the patient had worsening of her renal function, baseline creat jumped up from 2.4 to 3.7, she had edema feet, trop x 1 neg, ekg shows RBBB, which seems old, no ekg present but old tracing shows rbbb, the patient wbc is normal and ua is negative. She is being admitted to the hospital for further management. CKD, patient has stage 4 CKd, likely secondary to her DM and HTN, she as given IV lasix for her fluid overload, the patient responded well to IV lasix, initialy some improvement her renal function, but later decline, her creat at discharge is 3.9, the patient is able to tolerate po diet well, the patient will follow up with Dr Garcia in the clinic coming with labs done 1 day before. Patient verbalized understanding. She will take lasix 40mg daily, if she has worsening edema take additional 40mg . Left sided chest pain: Trop x 3 neg, ekg neg, echo neg, patient had some pressure, pleuritic chest pain, VQ scan was neg for PE too. likely musculoskeletal in nature, but would benefit from outpatient Stress test to r/o cardiac etiology sonam given her risk factors. Right leg weakness: The patient had weakness in the right leg on presentation, noting that the leg would just give away, she had 3-4 strength and DTR present in the right knee +++, the patients process was initially felt to be spinal, a T and L spine MRI was done which was negative. L spine MRI image quality awas not great but was able to rule out spinal pathology, Head ct showed some CVA in the occipital lobe, MRI head showed some diffuse white matter changes, with varied differential dignosis. Her leg strength improved during the stay in the hospital with therapy. She will continue with therapy and follow up with neurology as outpatient for further evaluation and workup of right leg weakness. Occular hemorhage: Incidental finding on CT and MRI, discussed with opthal, no intervention needed. confusion/ Pain issues: The patient is on morphine dilaudid for lizette, morhine and its metabolites can accumulate in patient with CKD and I would advise patient wean her self off this drug, is needed an alternative agent can be selected. Patient pcp can address this issue. The rest of the stay in the hospital was uneventful, no changes in home medications done. She is being discharged home with family, with home therapy. Discharge diagnosis: CKD, fluid overload, Right leg weakess - Time Spent with Patient Total time spent providing and/or coordinating discharge services: Greater than 30 minutes Medical - DS: Exam - Constitutional Vitals: Vital Signs Temp Pulse Resp BP BP Pulse Ox 08/30/17 08:00 96.6 F L 16 158/97 100 08/30/17 04:08 20 146/79 97 08/29/17 23:40 98.2 F 18 119/73 97 08/29/17 20:00 96 01/06/18 15:33 133/78 08/29/17 15:32 97.8 F 16 133/78 95 08/29/17 13:06 69 143/69 92 08/29/17 12:00 97.5 F 16 143/69 94 Intake and Output 08/29/17 08/30/17 08/30/17 21:59 05:59 13:59 Intake Total 1600 / 1600 110 / 110 Output Total 900 / 900 Balance -900 / -900 1600 / 1600 110 / 110 Intake: IV 1000 / 1000 Oral 600 / 600 110 / 110 Output: Urine Catheter Amount 900 / 900 Other: Meal Lunch Breakfast Percent of Meal Consumed 50% 75% Feeding Ability Independent Weight 179 lb 8 oz Additional comments: Constitutional; Afebrile, cooperative, alert, not in distress. Eyes- No icterus, , No periorbital swelling Ears- Ext ear normal, hearing normal to conversation. Neck- Midline trachea, supple Respiratory system: Air Entry equal on both sides, No crackles or wheezing, no rhonchi. CVS- Rate rhythm regular, S1,S2 heard, no gallop, no rub. Abdomen- Soft nontender abdomen, no organomegaly, no tenderness, no guarding or rigidity, [employer]- AOOx3, moving all extremities, some weakness in right leg, but much better than admission. Medical - DS: Data Procedures and tests throughout hospitalization: Chest x ray MPRESSION: Normal chest. Lower extremity Duplex MPRESSION: Normal chest. VQ scan Neg for Pulmonmary embolism Lumbar spine MRI IMPRESSION: Limited exam due to motion artifact - no abnormality. Thoroacic Spine MRI IMPRESSION: Thoracic spine is unremarkable. There is moderate localized edema in the subcutaneous fat in the T10-L1 region. This may be related trauma Head CT IMPRESSION: 1. No acute intracerebral abnormality 2. Mild atrophy (more than expected for age) and minimal patchy ischemia versus demyelination in the deep cerebral white matter - new from the previous study 11 years prior. Possible small wedge-shaped chronic infarct in the left occipital lobe. Suggest brain MRI for more specific evaluation. 3. Acute hemorrhage in the left ocular globe HIP X RAy IMPRESSION: Negative MRI head IMPRESSION: 1. Vague high signal foci throughout the deep periventricular white matter and multiple lesions also scattered in the subcortical white matter. There are two foci in the central jes - both less than 8 mm . This may represent a chronic ischemia from a multitude of causes including illicit drug use, migraine headache, small vessel disease (polyarteritis nodosa , lupus and other collagen vascular diseases) arteriosclerotic disease seen in diabetes. MS is possible, but less likely, given the lack of classic distribution Consider fluoroscopic guided lumbar puncture for CSF fluid analysis which may either be supportive or refutative of MS. 2. Large acute hemorrhage filling the anterior/ posterior chambers of the left ocular globe. Carotid Duplex IMPRESSION: Both common, internal and external carotid arteries are widely patent. There is mild intimal thickening in both carotid bifurcations. Antegrade flow present in both vertebral arteries. Echo LV normal in s ize borderline cocentric LVH LVfunction is normal IVC measures normal and shows normal inspiratory collapse. Labs on day of discharge: Labs from last 24 hours 08/30/17 08/30/17 08/29/17 03:48 03:48 16:21 WBC 9.1 RBC 3.23 L Hgb 9.4 L Hct 28.3 L MCV 87.6 MCH 29.1 MCHC 33.3 RDW 13.8 Plt Count 426 MPV 8.5 Gran % 65.1 Lymph % (Auto) 23.2 Rains % (Auto) 5.4 Eos % (Auto) 6.0 Baso % (Auto) 0.3 Gran # 5.9 Lymph # (Auto) 2.1 Rains # (Auto) 0.5 Eos # (Auto) 0.5 Baso # (Auto) 0 Sodium 135 134 Potassium 4.0 3.9 Chloride 90 L 91 L Carbon Dioxide 28 28 Anion Gap 17.0 H 15.0 BUN 52 H 48 H Creatinine 4.1 H 4.1 H GFR Calculation 12 12 Glucose 183 H 184 H Uric Acid 8.9 H Calcium 9.2 9.1 Phosphorus 5.7 H Magnesium 2.2 Total Bilirubin < 0.2 Direct Bilirubin < 0.2 GGT 13 AST 24 ALT 11 Alkaline Phosphatase 66 Lactate Dehydrogenase 200 Total Protein 7.1 Albumin 3.9 Globulin 3.2 Albumin/Globulin Ratio 1.2 Triglycerides 284 H Medical - DS: A/P - Patient/Caregiver Discharge Instructions Activity: as per physical therapy, increase activity as tolerated Diet: Renal/Consistent Carbs Additional Instructions: Please take furosemide 40mg once daily for edema, if you note that the swelling is coming back, take 2 pilsl (80mg of furosemide) Please follow up with Dr Garcia in the clinic on aug, Do blood work before you see Dr Garcia in the clinic, Sep 02 Follow up with PCP in 7-10 days Wean your self off morphine, in consultation with your PCP, consider alternative pain medications to help manage your pain, you may benefit from a pain consult. Talk to your pcp regarding same. You had left sided chest pain, your workup in the hospital has been negative, please discuss with your PCP for a cardiology referral and possible nuclear stress test to r/o cardiac etiology for same. You had weakness in the right leg at the time of admission, despite extensive workup we were unable to find the reason for the weakness, your strength seems to be improving, please see a neurologist as outpatient to further evaluate this issue. Your PCP can make a referral for you. Go to the ER if worsening symtoms, or any other significant concern. - Follow up Plan Follow up with: Natasha Ly MD [Primary Care Provider] - Disposition: Home Health Service Prognosis: Fair Rehab Potential: Fair I certify that the patient requires SNF services: No Overall status at discharge: patient is progressing back to baseline Medical - DS: Qual - VTE Deep Vein Thrombosis/Pulmonary Embolism Present on Admission: Yes
== END 2017-08-30 13:15 | disposition home health service (06) | DRG 683 ==
LOC: ICU 15:49 → ED 15:49 → ICU 20:30
PROVIDERS: ADMIT Internal Medicine; ATTEND Internal Medicine

== ENCOUNTER 2018-10-12 09:34 | Inpatient (IN) ==
[2018-10-12] MEDS ORDERED: PROMETHAZINE 25 MG/ML VIAL IV ONE ×2 (10:40→14:07)
[2018-10-12] MEDS ORDERED: diphenhydrAMINE 50 MG/ML VIAL IV ONE (10:40)
[2018-10-12] MEDS ORDERED: HYDROmorphone 2 MG/ML VIAL IV SCH ×4 (10:45→13:00)
[2018-10-12] MEDS ORDERED: 0.9 % SODIUM CHLORIDE 500 ML IV ONE ×2 (10:46→12:53)
--- NOTE | 2018-10-12 10:47 | Emergency Department Note ---
Arrhythmia/Palpitations HPI - General Chief Complaint: Arrhythmia/Palpitations Stated Complaint: Palpiatations, Vomiting, Diarrhea Time Seen by Provider: 10/12/18 10:01 Source: patient Mode of arrival: ambulatory Limitations: no limitations - History of Present Illness HPI Narrative: This 48-year-old female comes emergency room with multiple episodes of diarrhea, more than 10 times per day now on the fourth day. Also has vomited for the first couple of these days. None yesterday and once this morning. She has been taking Zofran about every 6 hours without this being effective. She has a history of C. difficile in the past. She has had some abdominal pain in the past 4-7 days but worse in the last 4 days crampy in nature particularly in the right side. She is supposed to get dialysis on Thursday but did not due to her illness and then was to get it again today. She is feeling dizzy and lightheaded when she stands up as well as general weak and very fatigued. Her usual weight is around 85 kg. She believes she is down a little bit. REVIEW OF SYSTEMS: Denies fevers has chronic chills. No sweats. Has some chest pain today substernal area she relates to vomiting. Has some palpitations. Feels short of breath with standing up. Denies dysuria. Produces a small amount of urine. Some right flank and abdominal area pain and epigastric area pain that is new. Has a remote history of pancreatitis 1 time. No anxiety. Has depression related she states to her chronic diseases/dialysis. Does take chronic narcotics for milligrams of hydromorphone 4 times a day for her neuropathy. - Related Data Home Medications Medication Instructions Recorded Confirmed clopidogrel 75 mg tablet 75 mg PO QDAY 06/10/18 10/12/18 estradiol 2 mg tablet 2 mg PO QDAY 06/10/18 10/12/18 DULoxetine [Cymbalta] 60 mg PO HS 07/05/18 10/12/18 Docusate Sodium [Colace] 200 mg PO PRN PRN 10/12/18 10/12/18 Furosemide [Lasix] 40 mg PO BID 10/12/18 10/12/18 HYDROmorphone HCL [Dilaudid] 4 mg PO Q4-6HP 10/12/18 10/12/18 Insulin Glargine, Human [Lantus] 8 unit SQ QAM 10/12/18 10/12/18 Insulin Glargine, Human [Lantus] 10 unit SQ HS 10/12/18 10/12/18 Insulin Lispro [HumaLOG] 1 unit SQ PRN PRN 10/12/18 10/12/18 Previous Rx's Medication Instructions Recorded clonidine HCl 0.1 mg tablet 0.1 mg PO ONCE PRN #30 tab 12/30/17 ondansetron 4 mg disintegrating 4 mg PO TID PRN #30 tab 01/25/18 tablet atorvastatin 40 mg tablet 40 mg PO QDAY #90 tab 04/15/18 sevelamer carbonate 800 mg tablet 1,600 mg PO TIDCC #180 tab 06/01/18 sucroferric oxyhydroxide 500 mg 500 mg PO TID #90 tab 06/01/18 chewable tablet LORazepam [Ativan] 1 mg PO TIDP PRN #9 tab 06/12/18 amlodipine 10 mg tablet See Rx Instructions .ROUTE 09/28/18 .COMPLEX #30 tab carvedilol 25 mg tablet See Rx Instructions .ROUTE 09/28/18 .COMPLEX #60 tablet Allergies Allergy/AdvReac Type Severity Reaction Status Date / Time honey Allergy Severe Anaphylaxis Verified 10/12/18 09:38 metoclopramide Allergy Severe Anaphylaxis Verified 10/12/18 09:38 prochlorperazine Allergy Severe Anaphylaxis Verified 10/12/18 09:38 sumatriptan Allergy Severe Anaphylaxis Verified 10/12/18 09:38 tiagabine [From Gabitril] Allergy Severe Anaphylaxis Verified 10/12/18 09:38 ceftriaxone [From Rocephin] Allergy Mild Rash Verified 10/12/18 09:38 Amoxicillin [From Augmentin] Allergy Unknown Hives Verified 10/12/18 09:38 aspirin Allergy Unknown Anaphylaxis Verified 10/12/18 09:38 clavulanic acid Allergy Unknown Hives Verified 10/12/18 09:38 [From Augmentin] gabapentin Allergy Unknown Confusion Verified 10/12/18 09:38 adhesive AdvReac Intermediate Rash Verified 10/12/18 09:38 droperidol [From INAPSINE] AdvReac Mild "OUT OF Verified 10/12/18 09:38 BODY" Past Medical History - Past Medical History PMFSH Narrative: Medical History (Last Updated 10/12/18 @ 10:53 by Aldair Rosario DO) MRSA (methicillin resistant Staphylococcus aureus) (Resolved) DM (diabetes mellitus), type 1 with neurological complications (Chronic) Polyneuropathy in diabetes (Chronic) Diabetic retinopathy associated with diabetes mellitus due to underlying condition (Chronic) ESRD (end stage renal disease) (Chronic) Chronic narcotic use (Chronic) Gastroparesis (Chronic) Right bundle branch block (RBBB) determined by electrocardiography (Chronic) Anemia in chronic kidney disease (CKD) (Chronic 12/09/12) Hypertension, essential, benign (Chronic) Secondary hyperparathyroidism of renal origin (Chronic) Infection of hemodialysis tunneled catheter (Chronic) 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) Staphylococcus aureus bacteremia (Resolved) Sepsis (Resolved) Cystitis (Chronic) Nephropathy (Chronic) Neuropathy (Chronic) Chest pain (Chronic) Shoulder pain (Resolved) Low back pain (Chronic) Complications, dialysis, catheter, mechanical (Chronic) Hypertensive renal disease (Chronic) Abnormal weight gain (Resolved) Vitreous hemorrhage (Resolved) Vitamin D deficiency (Chronic 01/18/13) UTI (lower urinary tract infection) (Resolved) SOB (shortness of breath) (Chronic) Retinal detachment (Resolved) Pyelonephritis (Resolved) Proteinuria (Chronic) Peripheral neuropathy (Chronic 12/09/12) Overweight (Chronic 12/09/12) Nephrolithiasis (Chronic 12/09/12) Microhematuria (Chronic) Lumbar disc disease (Chronic) long-term current use of insulin (Chronic) History of kidney stones (Resolved) Hypothyroidism (Chronic) Diabetes mellitus with renal manifestation (Chronic) Chronic pain (Chronic) Chronic kidney disease (CKD), stage IV (severe) (Chronic 12/01/13) Cataract (Chronic) Blindness of one eye (Chronic) Apnea (Chronic) Orthopnea (Chronic) Abdominal pain (Resolved) Acidosis (Resolved) Calf pain (Resolved) Dyspnea (Resolved) Edema of lower extremity (Resolved) Flank pain (Resolved) Fluid overload (Resolved) Fracture, foot (Resolved) Hyperkalemia (Resolved) Palpitation (Resolved) Pneumonia (Resolved) UTI (urinary tract infection) (Resolved) Vision changes (Resolved) Vomiting (Resolved) Weakness (Resolved) Past Surgical History (Last Updated 10/12/18 @ 10:10 by Aldair Rosario DO) History of appendectomy (Chronic) History of arthroscopy of right shoulder (Chronic) S/P arteriovenous (AV) fistula creation (Chronic 02/10/18) History of hysterectomy with oophorectomy (Resolved) History of shoulder surgery (Resolved) Family History (Last Reviewed 04/07/18 @ 15:24 by Tosin Garcia MD) Father Cerebral infarction Essential hypertension Mother Type 1 diabetes mellitus Medical history: Reports: DM, hypertension, kidney stones, migraine, renal disease, other Psychiatric history: Reports: depression. Denies: anxiety Surgical history ED: Reports: cholecystectomy, other - Social History smoking status: Never smoker Alcohol use: Reports: None Drug use: Reports: none Physical Exam Limitations: no limitations General appearance: alert, in distress (Look of consternation and grabbing some of her right abdominal area and some restlessness in the band because of this apparently.) Head: atraumatic, normocephalic Eye: Present: EOMI, other (Left eye with scleral clouding, moderate.) ENT: mucous membranes dry Neck: Present: trachea midline. Absent: lymphadenopathy, thyromegaly Chest: Present: symmetric chest wall rise Respiratory: Present: normal lung sounds bilaterally. Absent: respiratory distress, wheezes, stridor, accessory muscle use, prolonged expiratory phase Cardiovascular: Present: regular rate, normal rhythm. Absent: tachycardia, systolic murmur, diastolic murmur Abdominal: Present: soft, tenderness. Absent: distention, guarding, rebound, r igidity, organomegaly, mass Abdominal tenderness: Present: RUQ, epigastrium, moderate Extremities: Absent: pedal edema, pretibial edema, calf tenderness Back: Present: CVA tenderness (R) (Moderate). Absent: CVA tenderness (L), spinous process tenderness Neurological: Present: alert, oriented X3 Psychiatric: Present: flat affect, serious Skin: Present: other (Mildly moist) Course Vital Signs Pulse Rate 81 10/12/18 10:10 Respiratory Rate 18 10/12/18 10:10 Blood Pressure 147/100 10/12/18 10:10 Pulse Oximetry (%) 100 10/12/18 10:10 Pulse Rate 111 H 10/12/18 16:01 Respiratory Rate 14 10/12/18 16:01 Blood Pressure 150/72 10/12/18 16:01 Pulse Oximetry (%) 100 10/12/18 16:01 Arrhythmia/Palpitations - MDM Narrative Medical decision making narrative: 10:21 a.m. nausea vomiting and diarrhea for 4 weeks with some abdominal pain on the right side. History of type 1 diabetes. We will do labs including lipase, beta hydroxybutyrate, blood cultures and lactic acid. I spoke with Dr. Garcia fagoter, who recommended the blood cultures and okayed yunier Aguilar. I also spoke with PAUL Pérez,, from [facility], who was okay with giving hydromorphone and that she has not been able to keep things down. Her creatinine is 3.4. Her right bundle branch block is stable. Her glucose is only 260. We will also do a C. difficile. 12:44 PM I spoke again with Dr. Garcia, who agrees with going ahead with a contrast enhanced study of abdomen and pelvis to look for causes of her abdominal pain and then she will need dialysis which could be done outpatient if she is stable enough. Also give her an additional dose of hydromorphone but 2 mg because of persistence of her pain. I also ordered to go ahead with the second 500 mL's of normal saline. 3:35 PM Patient has had an additional episode of vomiting. She continues to be in significant pain. Her CT scan was negative for any acute identified problem. Previous UA was not successful due to contaminated with stool. We will do a bladder scan and see if we can catheterize her because of a previous episode of abdominal pain that was associated with a UTI. 3:39 PM I spoke with Dr. Garcia, who agrees that most likely we do need to consider going back and forth between ondansetron and promethazine because of her previous history of dystonic reactions to metoclopramide, prochlorperazine, Inapsine. And most likely needs inpatient with this. She does have a history of recurring hospital visits for pain and that this pain is not been able to be more clearly identified. She has a history of gastroparesis. I will speak with the hospitalist after we get the urine. Dr. Weir is on-call for nephrology for inpatient dialysis for this patient. 4:05 PM I spoke with Dr. Vivek Pettit, hospitalist, who kindly accepts this patient's care. He will speak with Dr. Weir, for dialysis inpatient. - Lab Data Lab results reviewed: Yes I reviewed the patient's lab results. Result diagrams: 10/12/18 09:56 10/12/18 09:56 Lab Results 10/12/18 10/12/18 10/12/18 Range/Units 09:56 09:56 09:56 WBC 5.3 (4.5-11.0) K/mcL RBC 4.54 (4.00-5.20) M/mcL Hgb 12.8 (12.0-15.0) g/dL Hct 39.5 (36.0-48.0) % POC Hct 38.0 (36.0-48.0) % MCV 87.0 (80.0-100.0) fL MCH 28.3 (26.0-34.0) pg MCHC 32.5 (31.0-36.0) g/dL RDW 13.4 (11.5-14.5) % Plt Count 306 (140-440) K/mcL MPV 8.4 (7.4-10.4) fL Gran % 53.0 (38.0-78.0) % Lymph % (Auto) 31.9 (15.5-49.0) % [place] % (Auto) 6.9 (1.0-12.0) % Eos % (Auto) 7.7 H (0.0-7.0) % Baso % (Auto) 0.5 (0.0-2.0) % Gran # 2.8 (1.8-8.0) K/mcL Lymph # (Auto) 1.7 (1.5-4.8) K/mcL [place] # (Auto) 0.4 (0.1-0.9) K/mcL Eos # (Auto) 0.4 (0.0-0.7) K/mcL Baso # (Auto) 0 (0.0-0.3) K/mcL VBG Lactic Acid (0.5-2.0) mmol/L POC Sodium 138 (133-145) mmol/L Sodium 138 (133-145) mmol/L POC Potassium 3.7 (3.3-5.1) mmol/L Potassium 4.0 (3.3-5.1) mmol/L POC Chloride 101 (96-108) mmol/L Chloride 98 (96-108) mmol/L Carbon Dioxide 26 (22-30) mmol/L POC Total CO2 26 (22-30) mmol/L Anion Gap 14.0 (8-16) POC BUN 46 H (6-20) mg/dl BUN 50 H (6-20) mg/dl Creatinine 3.4 H (0.6-1.1) mg/dl POC Creatinine 3.4 H (0.6-1.1) mg/dl GFR Calculation 15 Glucose 256 H (70-105) mg/dL POC Glucose 260 H (70-105) mg/dL Calcium 9.6 (8.6-10.4) mg/dl POC WB Ioniz Calcium 1.11 L (1.16-1.32) mmol/L Total Bilirubin 0.2 (0.0-1.0) mg/dL AST 20 (0-37) U/l ALT 10 (0-40) U/l Alkaline Phosphatase 75 (39-117) U/L C-Reactive Protein 0.3 (0.0-0.8) mg/dl Total Protein 7.9 (5.9-8.4) gm/dL Albumin 4.1 (3.2-5.2) gm/dL Globulin 3.8 H (2.2-3.7) gm/dL Albumin/Globulin Ratio 1.1 (1.0-2.3) Lipase 48 (7-60) U/L Beta-Hydroxybutyrate (< 0.27) mmol/L 10/12/18 10/12/18 Range/Units 09:56 11:03 WBC (4.5-11.0) K/mcL RBC (4.00-5.20) M/mcL Hgb (12.0-15.0) g/dL Hct (36.0-48.0) % POC Hct (36.0-48.0) % MCV (80.0-100.0) fL MCH (26.0-34.0) pg MCHC (31.0-36.0) g/dL RDW (11.5-14.5) % Plt Count (140-440) K/mcL MPV (7.4-10.4) fL Gran % (38.0-78.0) % Lymph % (Auto) (15.5-49.0) % [place] % (Auto) (1.0-12.0) % Eos % (Auto) (0.0-7.0) % Baso % (Auto) (0.0-2.0) % Gran # (1.8-8.0) K/mcL Lymph # (Auto) (1.5-4.8) K/mcL [place] # (Auto) (0.1-0.9) K/mcL Eos # (Auto) (0.0-0.7) K/mcL Baso # (Auto) (0.0-0.3) K/mcL VBG Lactic Acid 0.9 (0.5-2.0) mmol/L POC Sodium (133-145) mmol/L Sodium (133-145) mmol/L POC Potassium (3.3-5.1) mmol/L Potassium (3.3-5.1) mmol/L POC Chloride (96-108) mmol/L Chloride (96-108) mmol/L Carbon Dioxide (22-30) mmol/L POC Total CO2 (22-30) mmol/L Anion Gap (8-16) POC BUN (6-20) mg/dl BUN (6-20) mg/dl Creatinine (0.6-1.1) mg/dl POC Creatinine (0.6-1.1) mg/dl GFR Calculation Glucose (70-105) mg/dL POC Glucose (70-105) mg/dL Calcium (8.6-10.4) mg/dl POC WB Ioniz Calcium (1.16-1.32) mmol/L Total Bilirubin (0.0-1.0) mg/dL AST (0-37) U/l ALT (0-40) U/l Alkaline Phosphatase (39-117) U/L C-Reactive Protein (0.0-0.8) mg/dl Total Protein (5.9-8.4) gm/dL Albumin (3.2-5.2) gm/dL Globulin (2.2-3.7) gm/dL Albumin/Globulin Ratio (1.0-2.3) Lipase (7-60) U/L Beta-Hydroxybutyrate 0.28 H (< 0.27) mmol/L - Radiology Data Radiology results reviewed: Yes I reviewed the patient's radiology results. - EKG Data EKG results narrative: No acute coronary syndrome findings. Right bundle branch block. Similar to previous EKG. This ECG will be read by a hot bread baker. Disposition Pt seen by GUITAR TECHNICIAN/PA only: No Clinical Impression: Nausea vomiting and diarrhea Abdominal pain Qualifiers: Abdominal location: right upper quadrant Qualified Code(s): R10.11 - Right upper quadrant pain Summary: See MEDICAL DECISION MAKING above. Control of patient's nausea and vomiting is somewhat difficult because of her dystonic reactions to 3 nausea medications. Hopefully with alternating ondansetron and/or low-dose promethazine this can be controlled. She needs inpatient monitoring for this and for dialysis and for fluid management. Also has need for monitoring and control of blood sugars. her recurring abdominal pains have not been identified as to exact cause or source. Disposition: Xfer As Inpt ([facility]) Condition: Fair Referrals: Tosin Garcia MD [Primary Care Provider] -
[2018-10-12 10:54] LABS: Basophils # (Auto) 0 K/mcL (0.0-0.3); Basophils % (Auto) 0.5 % (0.0-2.0); Eosinophils # (Auto) 0.4 K/mcL (0.0-0.7); Eosinophils % (Auto) 7.7 % (0.0-7.0); Lymphocytes # (Auto) 1.7 K/mcL (1.5-4.8); Lymphocytes % (Auto) 31.9 % (15.5-49.0); Mean Corpuscular HGB Conc 32.5 g/dL (31.0-36.0); Monocytes # (Auto) 0.4 K/mcL (0.1-0.9); Monocytes % (Auto) 6.9 % (1.0-12.0); Platelet Count 306 K/mcL (140-440); RBC 4.54 M/mcL (4.00-5.20); Red Cell Distribution Width 13.4 % (11.5-14.5)
[2018-10-12 11:02] LABS: ALT/SGPT 10 U/l (0-40); Albumin 4.1 gm/dL (3.2-5.2); Albumin/Globulin Ratio 1.1 (1.0-2.3); Alkaline Phosphatase 75 U/L (39-117); Blood Urea Nitrogen 50 mg/dl (6-20); C-Reactive Protein 0.3 mg/dl (0.0-0.8); Lipase 48 U/L (7-60)
[2018-10-12] MEDS ORDERED: HYDROmorphone 2 MG/ML VIAL ONE (11:43)
--- NOTE | 2018-10-12 12:28 | Ultrasound Report ---
CLINICAL INFORMATION: History of pancreatitis. Abdominal pain. TECHNIQUE: Grayscale and color flow Doppler spectral imaging COMPARISON: Previous CT scan dated 06/20/2018 FINDINGS: Previous cholecystectomy. There is no intrahepatic bile duct dilatation. Common bile duct is not well visualized due to bowel gas. Liver is negative. No focal intrahepatic abnormality. Liver contour is smooth. There is no ascites. Normal hepatopedal portal venous flow. Pancreas is poorly visualized IMPRESSION: 1. Limited evaluation 2. Negative liver. Previous cholecystectomy. Interpreted and Authenticated by: Joe Sapp 10/12/18
--- NOTE | 2018-10-12 15:08 | Cat Scan Report ---
CLINICAL INFORMATION: Right-sided abdominal pain COMPARISON: Previous examination dated 06/20/2018 TECHNIQUE: Axial images were obtained through the abdomen and pelvis. Sagittally and coronally reformatted images. 70 mL contrast material injected intravenously. Oral contrast material was given FINDINGS: The appendix is not visualized. No evidence for appendicitis. Colon is negative. No diverticulitis. No detectable colonic mass. There is no mechanical small bowel obstruction. No mesenteric or retroperitoneal adenopathy. Lung bases are negative. No parenchymal infiltrate or mass. No pleural fluid. No pericardial fluid. Negative liver. No focal intrahepatic abnormality. There are surgical clips in the gallbladder fossa. The common bile duct is dilated to 8 mm. No intraluminal abnormality identified. This does not exclude choledocholithiasis. There is no intrahepatic bile duct dilatation. There is no pancreatic head mass. Pancreas is negative. No pancreatic mass. No peripancreatic abnormality. Negative spleen. No splenomegaly. Normal enhancement of the splenic and portal vein. Kidneys are negative. There are calcifications within both kidneys. These may be vascular but small nonobstructing calculi are possible. There is calcification of the abdominal aorta. No abdominal aortic aneurysm. Patient has undergone previous hysterectomy. The cervix is enlarged with low density abnormalities. Cervical neoplasm is possible. Gynecologic evaluation is recommended. There is no retroperitoneal adenopathy. No free pelvic fluid. No adnexal mass. No compression deformities. Sacrum and pelvis are negative. No lytic lesion. There is partial ankylosis of the left sacroiliac joint. Hips are negative. IMPRESSION: 1. Previous cholecystectomy. There is dilatation of the common bile duct without detectable choledocholithiasis. No intrahepatic bile duct dilatation. 2. Appendix is not visualized. No evidence for appendicitis 3. Previous hysterectomy. Enlarged heterogeneous cervix. Gynecologic evaluation recommended. The exam was performed using radiation dose optimization techniques including, but not limited to, automated exposure control, adjustment of the mA and/or kV according to patient size and use of iterative reconstruction technique. Interpreted and Authenticated by: Joe Sapp 10/12/18
--- NOTE | 2018-10-12 16:02 | Nephrology Consult Note ---
History of Present Illness - Reason for Consult Patient information: Note initiated : 10/12/18 at 4:00 pm Patient: Paige Lemos 48 y/o F admitted on for Palpitations, Vomiting, Diarrhea. Consult date: 10/12/18 end stage renal disease Requesting physician: lAdair Rosario - Chief Complaint Nausea, Vomiting, Diarrhea, Palpitations - History of Present Illness Paige Lemos is a 48-year-old female with end-stage renal disease on chronic hemodialysis (through right IJ tunneled hemodialysis catheter, at [facility], on TTS, followed by Dr. Garcia), secondary hyperparathyroidism of renal origin, chronic anemia due to kidney disease, presented to ED on 10/12/18 for nausea, vomiting, diarrhea and palpitations and being admitted. Review of Systems Constitutional: anorexia, lethargy, weakness Nose, mouth and throat: no nasal congestion, no sore throat Cardiovascular: palpatations, no chest pain Respiratory: no cough, no dyspnea Gastrointestinal: diarrhea, nausea, vomiting Genitourinary: no dysuria, no hematuria Musculoskeletal: no back pain, no neck pain Integumentary: no rash, no wounds Neurological: no confusion, no focal weakness Psychiatric: no anxiety, no panic attacks Endocrine: no cold intolerance, no heat intolerance Hematologic/Lymphatic: no easy bleeding, no easy bruising Allergic/Immunologic: no tongue swelling, no uticaria Past History Past medical history: Medical History (Last Updated 10/12/18 @ 15:47 by Aldair Rosario DO) At risk for allergic reaction to medication (Chronic) MRSA (methicillin resistant Staphylococcus aureus) (Resolved) DM (diabetes mellitus), type 1 with neurological complications (Chronic) 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) Polyneuropathy in diabetes (Chronic) Chronic narcotic use (Chronic) Diabetic retinopathy associated with diabetes mellitus due to underlying condition (Chronic) ESRD (end stage renal disease) (Chronic) Hypertensive renal disease (Chronic) Gastroparesis (Chronic) Right bundle branch block (RBBB) determined by electrocardiography (Chronic) Anemia in chronic kidney disease (CKD) (Chronic 12/09/12) Hypertension, essential, benign (Chronic) Secondary hyperparathyroidism of renal origin (Chronic) Infection of hemodialysis tunneled catheter (Chronic) 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) Staphylococcus aureus bacteremia (Resolved) Sepsis (Resolved) Cystitis (Chronic) Nephropathy (Chronic) Neuropathy (Chronic) Chest pain (Chronic) Shoulder pain (Resolved) Low back pain (Chronic) Complications, dialysis, catheter, mechanical (Chronic) Abnormal weight gain (Resolved) Vitreous hemorrhage (Resolved) Vitamin D deficiency (Chronic 01/18/13) UTI (lower urinary tract infection) (Resolved) SOB (shortness of breath) (Chronic) Retinal detachment (Resolved) Pyelonephritis (Resolved) Proteinuria (Chronic) Peripheral neuropathy (Chronic 12/09/12) Overweight (Chronic 12/09/12) Nephrolithiasis (Chronic 12/09/12) Microhematuria (Chronic) Lumbar disc disease (Chronic) History of kidney stones (Resolved) Hypothyroidism (Chronic) Diabetes mellitus with renal manifestation (Chronic) Chronic pain (Chronic) Cataract (Chronic) Blindness of one eye (Chronic) Apnea (Chronic) Orthopnea (Chronic) Abdominal pain (Resolved) Acidosis (Resolved) Calf pain (Resolved) Dyspnea (Resolved) Edema of lower extremity (Resolved) Flank pain (Resolved) Fluid overload (Resolved) Fracture, foot (Resolved) Hyperkalemia (Resolved) Palpitation (Resolved) Pneumonia (Resolved) UTI (urinary tract infection) (Resolved) Vision changes (Resolved) Vomiting (Resolved) Weakness (Resolved) Past surgical history: Past Surgical History (Last Updated 10/12/18 @ 10:10 by Aldair Rosario DO) History of appendectomy (Chronic) History of arthroscopy of right shoulder (Chronic) S/P arteriovenous (AV) fistula creation (Chronic 02/10/18) History of hysterectomy with oophorectomy (Resolved) History of shoulder surgery (Resolved) Past family history: Family History (Last Reviewed 04/07/18 @ 15:24 by Tosin Garcia MD) Father Cerebral infarction Essential hypertension Mother Type 1 diabetes mellitus Past social history: Social History (Last Updated 08/05/18 @ 16:28 by Jo Blue) No Social History Section defined Medications and Allergies Home Medications Medication Instructions Recorded Confirmed Type clonidine HCl 0.1 mg tablet 0.1 mg PO ONCE PRN #30 tab 12/30/17 10/12/18 Rx ondansetron 4 mg disintegrating 4 mg PO TID PRN #30 tab 01/25/18 10/12/18 Rx tablet atorvastatin 40 mg tablet 40 mg PO QDAY #90 tab 04/15/18 10/12/18 Rx sevelamer carbonate 800 mg tablet 1,600 mg PO TIDCC #180 tab 06/01/18 10/12/18 Rx sucroferric oxyhydroxide 500 mg 500 mg PO TID #90 tab 06/01/18 10/12/18 Rx chewable tablet clopidogrel 75 mg tablet 75 mg PO QDAY 06/10/18 10/12/18 History estradiol 2 mg tablet 2 mg PO QDAY 06/10/18 10/12/18 History LORazepam [Ativan] 1 mg PO TIDP PRN #9 tab 06/12/18 10/12/18 Rx DULoxetine [Cymbalta] 60 mg PO HS 07/05/18 10/12/18 History amlodipine 10 mg tablet See Rx Instructions .ROUTE 09/28/18 10/12/18 Rx .COMPLEX #30 tab carvedilol 25 mg tablet See Rx Instructions .ROUTE 09/28/18 10/12/18 Rx .COMPLEX #60 tablet Docusate Sodium [Colace] 200 mg PO PRN PRN 10/12/18 10/12/18 History Furosemide [Lasix] 40 mg PO BID 10/12/18 10/12/18 History HYDROmorphone HCL [Dilaudid] 4 mg PO Q4-6HP 10/12/18 10/12/18 History Insulin Glargine, Human [Lantus] 8 unit SQ QAM 10/12/18 10/12/18 History Insulin Glargine, Human [Lantus] 10 unit SQ HS 10/12/18 10/12/18 History Insulin Lispro [HumaLOG] 1 unit SQ PRN PRN 10/12/18 10/12/18 History Allergies Allergy/AdvReac Type Severity Reaction Status Date / Time honey Allergy Severe Anaphylaxis Verified 10/12/18 09:38 metoclopramide Allergy Severe Anaphylaxis Verified 10/12/18 09:38 prochlorperazine Allergy Severe Anaphylaxis Verified 10/12/18 09:38 sumatriptan Allergy Severe Anaphylaxis Verified 10/12/18 09:38 tiagabine [From Gabitril] Allergy Severe Anaphylaxis Verified 10/12/18 09:38 ceftriaxone [From Rocephin] Allergy Mild Rash Verified 10/12/18 09:38 Amoxicillin [From Augmentin] Allergy Unknown Hives Verified 10/12/18 09:38 aspirin Allergy Unknown Anaphylaxis Verified 10/12/18 09:38 clavulanic acid Allergy Unknown Hives Verified 10/12/18 09:38 [From Augmentin] gabapentin Allergy Unknown Confusion Verified 10/12/18 09:38 adhesive AdvReac Intermediate Rash Verified 10/12/18 09:38 droperidol [From INAPSINE] AdvReac Mild "OUT OF Verified 10/12/18 09:38 BODY" Exam - Vital Signs Vital signs: Pulse Resp BP Pulse Ox 76 16 149/83 81 L 10/12/18 15:42 10/12/18 15:46 10/12/18 15:46 10/12/18 15:42 - General Appearance General appearance: appears started age, fatigue EENT: mucous membranes moist Neck: supple Respiratory: clear Cardiology: no edema Gastrointestinal: tenderness Integumentary: warm and dry Neurologic: no focal deficit, alert and oriented x3 Musculoskeletal: no deformities Psychiatric: mood/affect appropriate, cooperative Results - Lab Results 10/12/18 09:56 10/12/18 09:56 Most recent lab results Calcium 9.6 mg/dl (8.6-10.4) 10/12/18 09:56 Assessment and Plan (1) ESRD on hemodialysis End-stage renal disease on chronic hemodialysis. Last hemodialysis on 10/07/18. Plan: Hemodialysis today with Revaclear 400 dialyzer for 3 hours, QB/QD 400/800, dialysate (Potassium 3, Bicarbonate 30, Calcium 2.5, Sodium 140), UF target 0 ml, Heparin 2000 unit bolus, 1000 unit per hour. Status: Chronic Priority: Medium - Narrative A/P Narrative: Paige Lemos is a 48-year-old female with end-stage renal disease on chronic hemodialysis (through right IJ tunneled hemodialysis catheter, at [facility], on TTS, followed by Dr. Garcia), secondary hyperparathyroidism of renal origin, ch ronic anemia due to kidney disease, presented to ED on 10/12/18 for and being admitted.
[2018-10-12 16:27] LABS: Appearance,Urine HAZY; Bacteria,Urine 0 /hpf (0); Bilirubin,Urine NEG (NEG); Color,Urine YELLOW; Glucose,Urine (UA) 50 mg/dL (NEG); Leukocyte Esterase,Urine NEG /uL (NEG); Mucus,Urine FEW /hpf (0); Protein,Urine 100 mg/dL (NEG); Specific Gravity,Urine 1.021 (1.000-1.035); Urine Amorphous Crystals MOD /hpf (0); Urine Blood NEG mg/dL (<0.03); Urine RBC 4 /hpf (0-1); Urine Squamous Epithelial Cell 4 /hpf (0-4); Urine WBC 5 /hpf (0-4); Urobilinogen,Urine NEG (NEG)
--- NOTE | 2018-10-12 16:52 | Internal Med History&Physical ---
Medical - H&P: HPI Patient information: Note initiated : 10/12/18 at 4:46 pm Service Date, if different from initiated Date: [] Patient: Paige Lemos a 48 y/o F admitted on for Palpiatations, Vomiting, Diarrhea. Chief Complaint: [] History of present illness: Ms. Lemos is a 48 year old F who presents with nausea vomiting diarrhea abdominal pain. Patient states that she gets nausea in the morning at times, but is been worse over the past couple weeks and is usually in the morning. Emesis is bile. She is also had diarrhea lasting for 4 days 5-10 episodes of green bilious stool. She typically does not have any issues with diarrhea. She also has abdominal pain which she says is periumbilical and is achy occasionally crampy radiates to the right side which is been going on for couple days. She first noticed abdominal pain while she was sitting in dialysis. The abdominal pain is associated with eating and relieved with pain medications. She had no change in her diet and not eating out. She does not have any food allergies that she is aware of. She does have a anxiety especially with dialysis. She does not have any urinary tract infection symptoms. Feels lightheaded when she stands up and is mild headache. She did miss several doses of her Dilaudid the other day but given Dilaudid in the ED did not seem to take away the pain and GI symptoms. She feels weak and fatigued. In the ED workup included lab laboratory plus urinalysis abdominal ultrasound and CT of the abdomen, oral and IV, she will be getting HD soon. Imaging the abdomen was unremarkable. Incidentally noted was a large cervix which she says she has been seeing Dr. Mckeon for about a month ago and he plans back to take her cervix out because of discomfort associated with, however that discomfort is different than what she complains of at this time. Is also in the ER which was associated with urinary tract infection which she says different than what she has today. Review of Systems: Pertinent positives as above. Denies fever/chills/chest pain/cough/dyspnea. Remaining 10 point review of systems reviewed negative Medical - H&P: PMH Medical history: Medical History (Last Updated 10/12/18 @ 16:15 by Alberta Weir MD) At risk for allergic reaction to medication (Chronic) MRSA (methicillin resistant Staphylococcus aureus) (Resolved) DM (diabetes mellitus), type 1 with neurological complications (Chronic) alf current use of insulin (Chronic) Polyneuropathy in diabetes (Chronic) Chronic narcotic use (Chronic) Diabetic retinopathy associated with diabetes mellitus due to underlying condition (Chronic) Hypertensive renal disease (Chronic) Gastroparesis (Chronic) Right bundle branch block (RBBB) determined by electrocardiography (Chronic) Anemia in chronic kidney disease (CKD) (Chronic 12/09/12) Hypertension, essential, benign (Chronic) Secondary hyperparathyroidism of renal origin (Chronic) Infection of hemodialysis tunneled catheter (Chronic) 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) Staphylococcus aureus bacteremia (Resolved) Sepsis (Resolved) Cystitis (Chronic) Nephropathy (Chronic) Neuropathy (Chronic) Chest pain (Chronic) Shoulder pain (Resolved) Low back pain (Chronic) Complications, dialysis, catheter, mechanical (Chronic) Abnormal weight gain (Resolved) Vitreous hemorrhage (Resolved) Vitamin D deficiency (Chronic 01/18/13) UTI (lower urinary tract infection) (Resolved) SOB (shortness of breath) (Chronic) Retinal detachment (Resolved) Pyelonephritis (Resolved) Proteinuria (Chronic) Peripheral neuropathy (Chronic 12/09/12) Overweight (Chronic 12/09/12) Nephrolithiasis (Chronic 12/09/12) Microhematuria (Chronic) Lumbar disc disease (Chronic) History of kidney stones (Resolved) Hypothyroidism (Chronic) Diabetes mellitus with renal manifestation (Chronic) Chronic pain (Chronic) Cataract (Chronic) Blindness of one eye (Chronic) Apnea (Chronic) Orthopnea (Chronic) Abdominal pain (Resolved) Acidosis (Resolved) Calf pain (Resolved) Dyspnea (Resolved) Edema of lower extremity (Resolved) Flank pain (Resolved) Fluid overload (Resolved) Fracture, foot (Resolved) Hyperkalemia (Resolved) Palpitation (Resolved) Pneumonia (Resolved) UTI (urinary tract infection) (Resolved) Vision changes (Resolved) Vomiting (Resolved) Weakness (Resolved) Past Surgical History (Last Updated 10/12/18 @ 10:10 by Aldair Rosario DO) History of appendectomy (Chronic) History of arthroscopy of right shoulder (Chronic) S/P arteriovenous (AV) fistula creation (Chronic 02/10/18) History of hysterectomy with oophorectomy (Resolved) History of shoulder surgery (Resolved) Family History (Last Reviewed 04/07/18 @ 15:24 by Tosin Garcia MD) Father Cerebral infarction Essential hypertension Mother Type 1 diabetes mellitus Social History (Last Updated 08/05/18 @ 16:28 by Jo Blue) 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 Denies alcohol use or tobacco abuse Denies marijuana use Lives at home with her jing Medical - H&P: Meds Home Medications Medication Instructions Recorded Confirmed Type clonidine HCl 0.1 mg tablet 0.1 mg PO ONCE PRN #30 tab 12/30/17 10/12/18 Rx ondansetron 4 mg disintegrating 4 mg PO TID PRN #30 tab 01/25/18 10/12/18 Rx tablet atorvastatin 40 mg tablet 40 mg PO QDAY #90 tab 04/15/18 10/12/18 Rx sevelamer carbonate 800 mg tablet 1,600 mg PO TIDCC #180 tab 06/01/18 10/12/18 Rx sucroferric oxyhydroxide 500 mg 500 mg PO TID #90 tab 06/01/18 10/12/18 Rx chewable tablet clopidogrel 75 mg tablet 75 mg PO QDAY 06/10/18 10/12/18 History estradiol 2 mg tablet 2 mg PO QDAY 06/10/18 10/12/18 History LORazepam [Ativan] 1 mg PO TIDP PRN #9 tab 06/12/18 10/12/18 Rx DULoxetine [Cymbalta] 60 mg PO HS 07/05/18 10/12/18 History amlodipine 10 mg tablet See Rx Instructions .ROUTE 09/28/18 10/12/18 Rx .COMPLEX #30 tab carvedilol 25 mg tablet See Rx Instructions .ROUTE 09/28/18 10/12/18 Rx .COMPLEX #60 tablet Docusate Sodium [Colace] 200 mg PO PRN PRN 10/12/18 10/12/18 History Furosemide [Lasix] 40 mg PO BID 10/12/18 10/12/18 History HYDROmorphone HCL [Dilaudid] 4 mg PO Q4-6HP 10/12/18 10/12/18 History Insulin Glargine, Human [Lantus] 8 unit SQ QAM 10/12/18 10/12/18 History Insulin Glargine, Human [Lantus] 10 unit SQ HS 10/12/18 10/12/18 History Insulin Lispro [HumaLOG] 1 unit SQ PRN PRN 10/12/18 10/12/18 History Allergies Allergy/AdvReac Type Severity Reaction Status Date / Time honey Allergy Severe Anaphylaxis Verified 10/12/18 09:38 metoclopramide Allergy Severe Anaphylaxis Verified 10/12/18 09:38 prochlorperazine Allergy Severe Anaphylaxis Verified 10/12/18 09:38 sumatriptan Allergy Severe Anaphylaxis Verified 10/12/18 09:38 tiagabine [From Gabitril] Allergy Severe Anaphylaxis Verified 10/12/18 09:38 ceftriaxone [From Rocephin] Allergy Mild Rash Verified 10/12/18 09:38 Amoxicillin [From Augmentin] Allergy Unknown Hives Verified 10/12/18 09:38 aspirin Allergy Unknown Anaphylaxis Verified 10/12/18 09:38 clavulanic acid Allergy Unknown Hives Verified 10/12/18 09:38 [From Augmentin] gabapentin Allergy Unknown Confusion Verified 10/12/18 09:38 adhesive AdvReac Intermediate Rash Verified 10/12/18 09:38 droperidol [From INAPSINE] AdvReac Mild "OUT OF Verified 10/12/18 09:38 BODY" Medical - H&P: Exam - Constitutional Vitals: Pulse Resp BP Pulse Ox 68 19 159/84 98 10/12/18 16:16 10/12/18 16:31 10/12/18 16:31 10/12/18 16:16 Exam: General: Alert, Awake, No acute Distress Eyes/N/T: right EOMI, right pupil round and reactive to light, left eye blind, DMM Head/Neck: neck supple, normocephalic atraumatic CV: RRR, No murmurs, normal s1/s2 Pulm: Clear b/l, no wheezing/rhonchi/rales Abd: soft, mild tenderness to palpation or right lower and upper quadrant , +BS x4 Ext: no clubbing/cyanosis/edema Neuro: Alert, no focal deficits, moves all extremities, CN 2-12 grossly intact, symmetrical strength b/l upper/lower, sensations intact b/l upper/lower Skin: warm/dry Medical - H&P: Reslt - Labs CBC & Chem 7: 10/12/18 09:56 10/12/18 09:56 Labs: Short CBC 10/12/18 Range/Units 09:56 WBC 5.3 (4.5-11.0) K/mcL Hgb 12.8 (12.0-15.0) g/dL Hct 39.5 (36.0-48.0) % Plt Count 306 (140-440) K/mcL BMP 10/12/18 09:56 Sodium 138 Potassium 4.0 Chloride 98 Carbon Dioxide 26 BUN 50 H Creatinine 3.4 H Glucose 256 H Calcium 9.6 Liver Function 10/12/18 Range/Units 09:56 Total Bilirubin 0.2 (0.0-1.0) mg/dL AST 20 (0-37) U/l ALT 10 (0-40) U/l Alkaline Phosphatase 75 (39-117) U/L Albumin 4.1 (3.2-5.2) gm/dL Urine 10/12/18 Range/Units 15:57 Urine Color Yellow Urine Appearance Hazy Urine pH 5.0 (5.0-9.0) Ur Specific [place] 1.021 (1.000-1.035) Urine Protein 100 A (NEG) mg/dL Urine Glucose (UA) 50 A (NEG) mg/dL Medical - H&P: A/P - Narrative A/P Narrative: A: *N/V/D/Right quads Abd pain: likely multifactorial including gastroparesis/anxiety/functional +/- gastroenteritis -CT and u/s imaging unremarkable -UA unremarkable *Diabetes with neuropathy and gastroparesis: Elevated blood glucose on admission secondary to missing medications *ESRD: *HTN: *Anxiety: *Migraines: *chronic pain (legs): on dialudid and cymbalta * * P: -s/p IVF's in ED -clears advance as tolerated -Benadryl/promethazine/Zofran/Ativan prn -home narcotics and prn IV -Nephro for HD -stool studies -fiber/probiotics -basal & SSI -cont BP meds - -ppx: heparin/pepcid
[2018-10-12] MEDS ORDERED: cloNIDine HCL 0.1 MG TABLET PO PRN (17:56)
[2018-10-12] MEDS ORDERED: PROMETHAZINE 25 MG/ML VIAL IV PRN (17:56)
[2018-10-12] MEDS ORDERED: ACETAMINOPHEN 325 MG TABLET PO PRN (17:56)
[2018-10-12] MEDS ORDERED: ONDANSETRON 4 MG/2 ML VIAL IV PRN (17:56)
[2018-10-12] MEDS ORDERED: DEXTROSE 50% 50 ML VIAL IV PRN (17:56)
[2018-10-12] MEDS ORDERED: LORazepam 2 MG/ML VIAL IV PRN (17:56)
[2018-10-12] MEDS ORDERED: HYDROmorphone 2 MG/ML VIAL IV PRN (17:56)
[2018-10-12] MEDS ORDERED: DEXTROSE 31 GM ORAL.SUSP PO PRN (17:56)
[2018-10-12] MEDS: INSULIN LISPRO 1 UNIT/0.01 ML UNIT SQ SCH (18:05)
[2018-10-12] MEDS: SEVELAMER 800 MG TABLET PO SCH (18:06)
[2018-10-12] MEDS: ONDANSETRON 4 MG ODT TABLET PO PRN ×2 (18:34→22:45)
[2018-10-12] MEDS: HYDROmorphone 2 MG TABLET PO PRN ×2 (19:01→22:45)
[2018-10-12] MEDS ORDERED: DULoxetine 30 MG CAPSULE PO SCH (21:00)
[2018-10-12] MEDS ORDERED: INSULIN GLARGINE, HUMAN 1 UNIT/0.01 ML SQ SCH (21:00)
[2018-10-12] MEDS ORDERED: amLODIPine 10 MG TABLET PO SCH (21:00)
[2018-10-12] MEDS ORDERED: FAMOTIDINE/PF 20 MG/2 ML VIAL IV SCH (21:00)
[2018-10-13] MEDS: CALCIUM POLYCARBOPHIL 1 TABLET PO SCH ×2 (01:03→12:35)
[2018-10-13] MEDS: LACTOBACILLUS 1 CAPSULE PO SCH ×2 (01:03→11:03)
[2018-10-13] MEDS: INSULIN LISPRO 1 UNIT/0.01 ML UNIT SQ SCH ×3 (01:04→12:38)
[2018-10-13] MEDS: HEPARIN 5,000 UNIT/ML VIAL SQ SCH ×2 (01:04→10:37)
[2018-10-13] MEDS: diphenhydrAMINE 50 MG/ML VIAL IV PRN ×3 (01:06→13:36)
[2018-10-13] MEDS: 0.9 % SODIUM CHLORIDE 10 ML SYRINGE IV SCH ×3 (01:06→04:01)
[2018-10-13] MEDS ORDERED: HYDROmorphone 2 MG/ML VIAL ONE ×2 (02:09→05:37)
[2018-10-13] MEDS: HYDROmorphone 2 MG/ML VIAL IV PRN ×3 (02:11→12:34)
[2018-10-13] MEDS: HYDROmorphone 2 MG TABLET PO PRN ×2 (03:14→15:54)
--- NOTE | 2018-10-13 06:42 | Nephrology Progress Note ---
Subjective Patient information: Note initiated : 10/13/18 at 6:39 am Patient: Paige Lemos 48 y/o F admitted on 10/12/18 for Palpitations, Vomiting, Diarrhea. Chief Complaint: Diarrhea Pertinent ROS: Nausea Vomiting Abdominal pain Diarrhea No edema Objective - Vital Signs Vital signs: Vital Signs Temp Pulse Pulse Resp BP BP BP 10/13/18 03:15 98.6 F 74 16 140/86 10/13/18 00:12 98 F 69 145/83 10/12/18 23:40 69 142/84 10/12/18 23:10 69 120/78 10/12/18 22:40 77 145/85 10/12/18 22:10 74 153/97 10/12/18 21:40 71 146/79 10/12/18 21:10 97.8 F 74 163/91 10/12/18 20:06 97.9 F 79 16 168/94 10/12/18 17:23 97.2 F 72 16 147/78 10/12/18 17:03 68 13 144/72 10/12/18 16:57 13 10/12/18 16:46 21 144/72 10/12/18 16:31 19 159/84 10/12/18 16:16 68 143/74 10/12/18 16:01 111 H 14 150/72 10/12/18 15:46 16 149/83 10/12/18 15:42 76 23 H 137/79 10/12/18 15:06 71 17 10/12/18 14:16 23 H 144/78 10/12/18 14:01 16 138/108 10/12/18 13:45 68 12 138/76 10/12/18 13:31 16 136/73 10/12/18 13:15 69 16 133/80 10/12/18 13:01 72 18 125/73 10/12/18 12:46 72 20 143/75 10/12/18 12:35 74 143/84 10/12/18 12:01 73 15 150/69 10/12/18 11:46 72 15 152/76 10/12/18 11:32 74 13 148/71 10/12/18 11:19 78 15 138/121 10/12/18 11:13 79 22 10/12/18 10:47 78 22 153/73 10/12/18 10:32 82 19 186/79 10/12/18 10:10 81 18 147/100 Pulse Ox 10/13/18 03:15 98 10/13/18 00:12 10/12/18 23:40 10/12/18 23:10 10/12/18 22:40 10/12/18 22:10 10/12/18 21:40 10/12/18 21:10 10/12/18 20:06 92 10/12/18 17:23 95 10/12/18 17:03 98 10/12/18 16:57 10/12/18 16:46 10/12/18 16:31 10/12/18 16:16 98 10/12/18 16:01 100 10/12/18 15:46 10/12/18 15:42 10/12/18 15:06 100 10/12/18 14:16 10/12/18 14:01 10/12/18 13:45 100 10/12/18 13:31 10/12/18 13:15 100 10/12/18 13:01 100 10/12/18 12:46 100 10/12/18 12:35 100 10/12/18 12:01 97 10/12/18 11:46 96 10/12/18 11:32 97 10/12/18 11:19 97 10/12/18 11:13 98 10/12/18 10:47 98 10/12/18 10:32 99 10/12/18 10:10 100 Intake and Output 10/12/18 10/13/18 10/13/18 21:59 05:59 13:59 Intake Total 500 75 Output Total 150 2825 Balance 350 -2750 Intake: IV 500 Sodium Chloride 0.9% 500 ml @ 500 Wide Open IV BOLUS ONE Rx#: [id number] Oral 75 Output: Void Amount 150 225 Hemodialysis UF 2600 Other: Urine Appearance Clear Fem Cath Clear Urine Color Straw Fem Cath Straw Urine Odor Normal Weight 186 lb Intake & Output: Intake & Output 10/12/18 10/13/18 10/13/18 21:59 05:59 13:59 Intake Total 500 75 Output Total 150 2825 Balance 350 -2750 Weight 186 lb Intake: IV 500 Sodium Chloride 0.9% 500 ml @ 500 Wide Open IV BOLUS ONE Rx#: [id number] Oral 75 Output: Void Amount 150 225 Hemodialysis UF 2600 Other: Urine Appearance Clear Fem Cath Clear Urine Color Straw Fem Cath Straw Urine Odor Normal - General Appearance General appearance: appears started age, fatigue EENT: mucous membranes moist Neck: supple Respiratory: clear Cardiology: no edema Gastrointestinal: tenderness Integumentary: warm and dry Neurologic: no focal deficit, alert and oriented x3 Musculoskeletal: no deformities Psychiatric: mood/affect appropriate, cooperative - Lab 10/13/18 07:45 10/13/18 07:45 Most recent lab results Calcium 9.6 mg/dl (8.6-10.4) 10/12/18 09:56 Assessment and Plan (1) ESRD on hemodialysis Paige Lemos is a 48-year-old female with end-stage renal disease on chronic hemodialysis (through right IJ tunneled hemodialysis catheter, at [facility], on TTS, followed by Dr. Garcia), secondary hyperparathyroidism of renal origin, chronic anemia due to kidney disease, presented to ED on 10/12/18 for nausea, vomiting, abdominal pain, diarrhea, palpitations and admitted. End-stage renal disease on chronic hemodialysis. Plan: Hemodialysis on Thursday, , Thursday with Revaclear 400 dialyzer for 3 hours, QB/QD 400/800, dialysate (Potassium 3, Bicarbonate 30, Calcium 2.5, Sodium 140), UF target 1000 ml, Heparin 2000 unit bolus, 1000 unit per hour. Status: Chronic Priority: Medium (2) Anemia due to end stage renal disease Status: Chronic Priority: Medium
--- NOTE | 2018-10-13 06:44 | Internal Med Progress Note ---
Medical - PN: Subj Patient information: Note initiated : 10/13/18 at 6:41 am Service Date, if different from initiated Date: [] Patient: Paige Lemos 48 y/o F admitted on 10/12/18 for Palpiatations, Vomiting, Diarrhea. Chief Complaint: [] Interval history: Ms. Lemos is a 48 year old F who presents with nausea vomiting diarrhea abdominal pain. Patient states that she gets nausea in the morning at times, but is been worse over the past couple weeks and is usually in the morning. Emesis is bile. She is also had diarrhea lasting for 4 days 5-10 episodes of green bilious stool. She typically does not have any issues with diarrhea. She also has abdominal pain which she says is periumbilical and is achy occasionally crampy radiates to the right side which is been going on for couple days. She first noticed abdominal pain while she was sitting in dialysis. The abdominal pain is associated with eating and relieved with pain medications. She had no change in her diet and not eating out. She does not have any food allergies that she is aware of. She does have a anxiety especially with dialysis. She does not have any urinary tract infection symptoms. Feels lightheaded when she stands up and is mild headache. She did miss several doses of her Dilaudid the other day but given Dilaudid in the ED did not seem to take away the pain and GI symptoms. She feels weak and fatigued. In the ED workup included lab laboratory plus urinalysis abdominal ultrasound and CT of the abdomen, oral and IV, she will be getting HD soon. Imaging the abdomen was unremarkable. Incidentally noted was a large cervix which she says she has been seeing Dr. Mckeon for about a month ago and he plans back to take her cervix out because of discomfort associated with, however that discomfort is different than what she complains of at this time. Is also in the ER which was associated with urinary tract infection which she says different than what she has today. 2 Had nausea vomits morning. Still having abdominal pain described as crampy periumbilical rating around to the side. Had a bowel movement this soft this morning per nursing notes loose per patient, green. Review of Systems: denies headache/fever/chills/chest pain/cough/dyspnea. Otherwise see above. - Constitutional Vitals: Vital Signs Temp Pulse Resp BP Pulse Ox 98.6 F 74 16 140/86 98 10/13/18 03:15 10/13/18 03:15 10/13/18 03:15 10/13/18 03:15 10/13/18 03:15 Period Temp Pulse Resp BP Sys/Toro Pulse Ox Last 24 Hr 97.2 F-98.6 F 68-111 12-23 120-186/69-121 92-100 Intake and Output 10/12/18 10/13/18 10/13/18 21:59 05:59 13:59 Intake Total 500 75 Output Total 150 2825 Balance 350 -2750 Weight 84.368 kg Intake & Output: Intake & Output 10/12/18 10/13/18 10/13/18 21:59 05:59 13:59 Intake Total 500 75 Output Total 150 2825 Balance 350 -2750 Weight 84.368 kg Intake: IV 500 Sodium Chloride 0.9% 500 ml @ 500 Wide Open IV BOLUS ONE Rx#: [id number] Oral 75 Output: Void Amount 150 225 Hemodialysis UF 2600 Other: Urine Appearance Clear Fem Cath Clear Urine Color Straw Fem Cath Straw Urine Odor Normal Exam: General: Alert, Awake, No acute Distress Eyes/N/T: right EOMI, right pupil round and reactive to light, left eye blind, Head/Neck: neck supple, CV: RRR, No murmurs, Pulm: Clear b/l, no wheezing/rhonchi/rales Abd: soft, TTP/RUQ, +BS x4 Ext: no clubbing/cyanosis/edema Neuro: Alert, no focal deficits, moves all extremities, Skin: warm/dry Medical - PN: Obj Da - Labs CBC & Chem 7: 10/13/18 07:45 10/13/18 07:45 Labs: Abnormal Lab Results 10/12/18 10/12/18 10/12/18 15:57 09:56 09:56 Eos % (Auto) POC BUN BUN 50 H Creatinine 3.4 H POC Creatinine Glucose 256 H POC Glucose POC WB Ioniz Calcium Globulin 3.8 H Beta-Hydroxybutyrate 0.28 H Urine Protein 100 A Urine Glucose (UA) 50 A Urine RBC 4 H Urine WBC 5 H Amorphous Crystals Mod A 10/12/18 10/12/18 09:56 09:56 Eos % (Auto) 7.7 H POC BUN 46 H BUN Creatinine POC Creatinine 3.4 H Glucose POC Glucose 260 H POC WB Ioniz Calcium 1.11 L Globulin Beta-Hydroxybutyrate Urine Protein Urine Glucose (UA) Urine RBC Urine WBC Amorphous Crystals Meds: Medications Acetaminophen (Tylenol) 650 mg PO Q6HP PRN PRN Reason: PAIN/FEVER > 101 Amlodipine Besylate (Norvasc) 10 mg PO [facility] Last Admin: 10/13/18 01:03 Dose: 10 mg Documented by: Atorvastatin Calcium (Lipitor) 40 mg PO DAILY COUNT INCLUDES THE [facility] Calcium Polycarbophil (Fibercon) 1 tab PO BID COUNT INCLUDES THE [facility] Last Admin: 10/13/18 01:03 Dose: Not Given Documented by: Carvedilol (Coreg) 25 mg PO BIDCC COUNT INCLUDES THE [facility] Clonidine HCl (Catapres) 0.1 mg PO ONCE PRN PRN Reason: if BP is more than 160/90 Clopidogrel Bisulfate (Plavix) 75 mg PO QDAY COUNT INCLUDES THE [facility] Dextrose (Dextrose 50%) 0 ml IV UD PRN PRN Reason: Hypoglycemia Diagnostic Test (Pha) (Accu-Chek) 1 each FS ACHS COUNT INCLUDES THE [facility] Last Admin: 10/12/18 22:45 Dose: 1 each Documented by: Diphenhydramine HCl (Benadryl) 25 mg IV Q4-6HP PRN PRN Reason: Nausea Last Admin: 10/13/18 01:06 Dose: 25 mg Documented by: Duloxetine HCl (Cymbalta) 60 mg PO [facility] Last Admin: 10/13/18 01:03 Dose: 60 mg Documented by: Famotidine (Pepcid) 20 mg IV [facility] Last Admin: 10/13/18 01:05 Dose: 20 mg Documented by: Furosemide (Lasix) 40 mg PO BID COUNT INCLUDES THE [facility] Glucose (Insta-Glucose) 15 gm PO PRN PRN PRN Reason: Hypoglycemia Heparin Sodium (Porcine) (Heparin) 5,000 unit SQ Q12 COUNT INCLUDES THE [facility] Last Admin: 10/13/18 01:04 Dose: 5,000 unit Documented by: Hydromorphone HCl (Dilaudid) 4 mg PO Q4-6HP PRN PRN Reason: Pain Last Admin: 10/13/18 03:14 Dose: 4 mg Documented by: Hydromorphone HCl (Dilaudid) 0.5 - 1.5 mg IV Q2HP PRN PRN Reason: PAIN LEVEL > 6 Last Admin: 10/13/18 02:11 Dose: 1.5 mg Documented by: Insulin Glargine (Lantus) 8 unit SQ QAM COUNT INCLUDES THE [facility] Insulin Glargine (Lantus) 10 unit SQ HS COUNT INCLUDES THE [facility] Last Admin: 10/13/18 01:04 Dose: 10 unit Documented by: Insulin Human Lispro (Humalog) 0 unit SQ ACHS COUNT INCLUDES THE [facility]; Protocol Last Admin: 10/13/18 01:04 Dose: Not Given Documented by: Lactobacillus Rhamnosus (Culturelle) 1 cap PO BID COUNT INCLUDES THE [facility] Last Admin: 10/13/18 01:03 Dose: Not Given Documented by: Lorazepam (Ativan) 1 mg IV Q8HP PRN PRN Reason: NAUSEA/ANXIETY Ondansetron HCl (Zofran Odt) 4 mg PO TIDP PRN PRN Reason: Nausea Last Admin: 10/12/18 22:45 Dose: 4 mg Documented by: Ondansetron HCl (Zofran) 4 mg IV Q4-6HP PRN PRN Reason: Nausea And Vomiting Velphor (Sucroferric Oxyhydroxide) 500 Mg [facility] Promethazine HCl (Phenergan) 12.5 mg IV Q4-6HP PRN PRN Reason: Nausea And Vomiting Last Admin: 10/13/18 03:22 Dose: 12.5 mg Documented by: Sevelamer Carbonate (Renvela) 1,600 mg PO TIDCC COUNT INCLUDES THE [facility] Last Admin: 10/12/18 18:06 Dose: Not Given Documented by: Sodium Chloride (Saline Flush) 10 ml IV Q8 COUNT INCLUDES THE [facility] Last Admin: 10/13/18 04:01 Dose: Not Given Documented by: Medical - PN: A/P - Time Spent With Patient Total time spent is greater than 50% in coordination of care (as documented) at patient's floor/unit and/or counseling patient: - Narrative A/P Narrative: A: *N/V/D/Abd pain: likely multifactorial including gastroparesis/anxiety/functional +/- gastroenteritis -CT and u/s imaging unremarkable -UA unremarkable -still c/o same *Diabetes w/neuropathy & gastroparesis: Elevated blood glucose on admission secondary to missing medications *ESRD: *HTN: *Anxiety: *Migraines: *chronic pain (legs): on dialudid and cymbalta * P: -clears advance as tolerated -Benadryl/promethazine/Zofran/Ativan prn -home narcotics and prn IV -Nephro for HD -stool studies -fibercon/probiotics -low fat/small meals/soluble fiber -basal & SSI -cont BP meds -d/w Steph Saul -ppx: heparin/pepcid Medical - PN: Qual - VTE Deep Vein Thrombosis/Pulmonary Embolism Present on Admission: No
[2018-10-13] MEDS: ONDANSETRON 4 MG ODT TABLET PO PRN (07:55)
[2018-10-13] MEDS ORDERED: CARVEDILOL 12.5 MG TABLET PO SCH (08:00)
[2018-10-13 08:19] LABS: Basophils # (Auto) 0 K/mcL (0.0-0.3); Basophils % (Auto) 0.7 % (0.0-2.0); Eosinophils # (Auto) 0.4 K/mcL (0.0-0.7); Eosinophils % (Auto) 8.4 % (0.0-7.0); Granulocytes % (Auto) 34.6 % (38.0-78.0); Lymphocytes # (Auto) 2.1 K/mcL (1.5-4.8); Lymphocytes % (Auto) 47.7 % (15.5-49.0); Mean Cell Volume 86.1 fL (80.0-100.0); Mean Corpuscular HGB Conc 33.1 g/dL (31.0-36.0); Monocytes # (Auto) 0.4 K/mcL (0.1-0.9); Monocytes % (Auto) 8.6 % (1.0-12.0); Platelet Count 280 K/mcL (140-440); RBC 4.07 M/mcL (4.00-5.20); Red Cell Distribution Width 13.5 % (11.5-14.5)
[2018-10-13 08:44] LABS: ALT/SGPT 9 U/l (0-40); Albumin 3.6 gm/dL (3.2-5.2); Albumin/Globulin Ratio 1.1 (1.0-2.3); Alkaline Phosphatase 65 U/L (39-117); Bilirubin,Direct < 0.2 mg/dL (0.0-0.3); Blood Urea Nitrogen 19 mg/dl (6-20); Gamma Glutamyl Transpeptidase 12 U/L (5-36)
[2018-10-13] MEDS ORDERED: CLOPIDOGREL 75 MG TABLET PO SCH (09:00)
[2018-10-13] MEDS ORDERED: ATORVASTATIN 20 MG TABLET PO SCH (09:00)
[2018-10-13] MEDS ORDERED: INSULIN GLARGINE, HUMAN 1 UNIT/0.01 ML SQ SCH (09:00)
[2018-10-13] MEDS ORDERED: FUROSEMIDE 40 MG TABLET PO SCH (09:00)
[2018-10-13] MEDS: SEVELAMER 800 MG TABLET PO SCH ×2 (11:00→13:28)
[2018-10-13] MEDS: SUCROFERRIC OXYHYDROXIDE 500 MG PO SCH ×2 (12:37)
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
--- NOTE | 2018-10-13 14:07 | Discharge Summary ---
Medical - DS: Prov Patient information: Note initiated : 10/13/18 at 2:04 pm Service Date, if different from initiated Date: [] Patient: Paige Lemos 48 y/o F admitted on 10/12/18 for Palpiatations, Vomiting, Diarrhea. Chief Complaint: [] Date of admission: 10/12/18 17:03 Discharge date: 10/13/18 Primary care physician: Tosin Garcia Consults: 10/12/18 Consult to Physician [CONS] Stat Comment: Consulting Provider: Tosin Garcia Reason For Exam: Physician to Consult Consult to Physician [CONS] Stat Comment: Consulting Provider: Vivek Pettit Reason For Exam: Physician to Consult 10/13/18 09:46 Consult to Physician [CONS] Routine Comment: Consulting Provider: Steph Saul Reason For Exam: Physician to Consult Medical - DS: Meds - Discharge Medications Prescriptions: diphenhydrAMINE [Benadryl] 25 mg IV Q4-6HP PRN #30 vial PRN Reason: Nausea HYDROmorphone HCL [Dilaudid] 4 - 6 mg PO Q4-6HP #30 tab Active and Home Medications: Home Medications clonidine HCl 0.1 mg tablet 0.1 mg PO ONCE PRN #30 tab 12/30/17 [Rx Confirmed 10/12/18 Last Taken 10/11/18 23:00] ondansetron 4 mg disintegrating tablet 4 mg PO TID PRN #30 tab 01/25/18 [Rx Confirmed 10/12/18 Last Taken 10/12/18 09:30] atorvastatin 40 mg tablet 40 mg PO QDAY #90 tab 04/15/18 [Rx Confirmed 10/12/18 Last Taken 10/11/18 23:00] sevelamer carbonate 800 mg tablet 1,600 mg PO TIDCC #180 tab 06/01/18 [Rx Confirmed 10/12/18 Last Taken 08/12/18] sucroferric oxyhydroxide 500 mg chewable tablet 500 mg PO TID #90 tab 06/01/18 [Rx Confirmed 10/12/18 Last Taken 10/10/18 18:30] clopidogrel 75 mg tablet 75 mg PO QDAY 06/10/18 [History Confirmed 10/12/18 Last Taken 10/11/18 23:00] estradiol 2 mg tablet 2 mg PO QDAY 06/10/18 [History Confirmed 10/12/18 Last Taken 10/11/18 23:00] LORazepam [Ativan] 1 mg PO TIDP PRN #9 tab 06/12/18 [Rx Confirmed 10/12/18 Last Taken 08/12/18] DULoxetine [Cymbalta] 60 mg PO HS 07/05/18 [History Confirmed 10/12/18 Last Taken 10/11/18 23:00] amlodipine 10 mg tablet See Rx Instructions .ROUTE .COMPLEX #30 tab 09/28/18 [Rx Confirmed 10/12/18 Last Taken 10/11/18 23:00] carvedilol 25 mg tablet See Rx Instructions .ROUTE .COMPLEX #60 tablet 09/28/18 [Rx Confirmed 10/12/18 Last Taken 10/11/18 23:00] Docusate Sodium [Colace] 200 mg PO PRN PRN 10/12/18 [History Confirmed 10/12/18 Last Taken Unknown] Furosemide [Lasix] 40 mg PO BID 10/12/18 [History Confirmed 10/12/18 Last Taken 10/11/18 09:30] HYDROmorphone HCL [Dilaudid] 4 mg PO Q4-6HP 10/12/18 [History Confirmed 10/12/18 Last Taken 10/11/18 18:30] Insulin Glargine, Human [Lantus] 8 unit SQ QAM 10/12/18 [History Confirmed 10/12/18 Last Taken 10/11/18 08:30] Insulin Glargine, Human [Lantus] 10 unit SQ HS 10/12/18 [History Confirmed 10/12/18 Last Taken 10/11/18 18:30] Insulin Lispro [HumaLOG] 1 unit SQ PRN PRN 10/12/18 [History Confirmed 10/12/18 Last Taken 10/10/18 18:30] Medical - DS: Hosp Hospital course: Ms. Lemos is a 48 year old F who presents with nausea vomiting diarrhea abdominal pain. Patient states that she gets nausea in the morning at times, but is been worse over the past couple weeks and is usually in the morning. Emesis is bile. She is also had diarrhea lasting for 4 days 5-10 episodes of green bilious stool. She typically does not have any issues with diarrhea. She also has abdominal pain which she says is periumbilical and is achy occasionally crampy radiates to the right side which is been going on for couple days. She first noticed abdominal pain while she was sitting in dialysis. The abdominal pain is associated with eating and relieved with pain medications. She had no change in her diet and not eating out. She does not have any food allergies that she is aware of. She does have a anxiety especially with dialysis. She does not have any urinary tract infection symptoms. Feels lightheaded when she stands up and is mild headache. She did miss several doses of her Dilaudid the other day but given Dilaudid in the ED did not seem to take away the pain and GI symptoms. She feels weak and fatigued. In the ED workup included lab laboratory plus urinalysis abdominal ultrasound and CT of the abdomen, oral and IV, she will be getting HD soon. Imaging the abdomen was unremarkable. Incidentally noted was a large cervix which she says she has been seeing Dr. Mckeon for about a month ago and he plans back to take her cervix out because of discomfort associated with, however that discomfort is different than what she complains of at this time. Is also in the ER which was associated with urinary tract infection which she says different than what she has today. 2/ Had nausea vomits morning. Still having abdominal pain described as crampy periumbilical rating around to the side. Had a bowel movement this soft this morning per nursing notes loose per patient, green. Seen by GI nurse practitioner Steph Saul, and felt this may be related to a thoracolumbar neuropathy in a patient with gastroparesis. That she may benefit from a paravertebral block for which she talked with Dr. Lopez who would be willing to provide the procedure however the patient will need to be off her Plavix for 5-7 days. Steph Saul will also set up EGD with Dr. Kulkarni on Thursday. Patient is desiring to go home this time. she did tolerate a solid diet. She is low on her home Dilaudid prescription and may need a few extra tablets during this acute illness, will prescribe her a few anxious to get through until the procedure. Stable for discharge Discharge diagnosis: Abdominal pain possibly thoracolumbar neuropathy with associated nausea vom Secondary discharge diagnosis: Diabetes with neuropathy gastroparesis end-stage renal disease hypertension anxiety migraines chronic pain - Time Spent with Patient Total time spent providing and/or coordinating discharge services: Greater than 30 minutes Medical - DS: Exam - Constitutional Vitals: Vital Signs Temp Pulse Pulse Resp BP BP BP 10/13/18 08:15 74 16 10/13/18 08:00 98.1 F 78 16 145/87 10/13/18 03:15 98.6 F 74 16 140/86 10/13/18 00:12 98 F 69 145/83 10/12/18 23:40 69 142/84 10/12/18 23:10 69 120/78 10/12/18 22:40 77 145/85 10/12/18 22:10 74 153/97 10/12/18 21:40 71 146/79 10/12/18 21:10 97.8 F 74 163/91 10/12/18 20:06 97.9 F 79 16 168/94 10/12/18 17:23 97.2 F 72 16 147/78 10/12/18 17:03 68 13 144/72 10/12/18 16:57 13 10/12/18 16:46 21 144/72 10/12/18 16:31 19 159/84 10/12/18 16:16 68 143/74 10/12/18 16:01 111 H 14 150/72 10/12/18 15:46 16 149/83 10/12/18 15:42 76 23 H 137/79 10/12/18 15:06 71 17 10/12/18 14:16 23 H 144/78 Pulse Ox 10/13/18 08:15 98 10/13/18 08:00 97 10/13/18 03:15 98 10/13/18 00:12 10/12/18 23:40 10/12/18 23:10 10/12/18 22:40 10/12/18 22:10 10/12/18 21:40 10/12/18 21:10 10/12/18 20:06 92 10/12/18 17:23 95 10/12/18 17:03 98 10/12/18 16:57 10/12/18 16:46 10/12/18 16:31 10/12/18 16:16 98 10/12/18 16:01 100 10/12/18 15:46 10/12/18 15:42 10/12/18 15:06 100 10/12/18 14:16 Intake and Output 10/13/18 10/13/18 10/13/18 05:59 13:59 21:59 Intake Total 75 Output Total 2825 Balance -2750 Intake: Oral 75 Output: Void Amount 225 Hemodialysis UF 2600 Other: Urine Appearance Clear Urine Color Straw Urine Odor Normal Weight 84.368 kg Patient Weight 10/14/18 05:59 Weight 84.368 kg Medical - DS: Data Labs on day of discharge: Labs from last 24 hours 10/13/18 10/13/18 10/12/18 07:45 07:45 15:57 WBC 4.4 L RBC 4.07 Hgb 11.6 L Hct 35.1 L MCV 86.1 MCH 28.5 MCHC 33.1 RDW 13.5 Plt Count 280 MPV 7.9 Gran % 34.6 L Lymph % (Auto) 47.7 [place] % (Auto) 8.6 Eos % (Auto) 8.4 H Baso % (Auto) 0.7 Gran # 1.5 L Lymph # (Auto) 2.1 [place] # (Auto) 0.4 Eos # (Auto) 0.4 Baso # (Auto) 0 Sodium 136 Potassium 4.0 Chloride 103 Carbon Dioxide 25 Anion Gap 8.0 BUN 19 Creatinine 2.2 H GFR Calculation 26 Glucose 107 H Uric Acid 3.0 Calcium 9.0 Phosphorus 2.8 Magnesium 1.9 Total Bilirubin 0.2 Direct Bilirubin < 0.2 GGT 12 AST 18 ALT 9 Alkaline Phosphatase 65 Lactate Dehydrogenase 169 Total Protein 6.9 Albumin 3.6 Globulin 3.3 Albumin/Globulin Ratio 1.1 Triglycerides 368 H Urine Color Yellow Urine Appearance Hazy Urine pH 5.0 Ur Specific [place] 1.021 Urine Protein 100 A Urine Glucose (UA) 50 A Urine Ketones Neg Urine Occult Blood Neg Urine Nitrate Neg Urine Bilirubin Neg Urine Urobilinogen Neg Ur Leukocyte Esterase Neg Urine RBC 4 H Urine WBC 5 H Ur Squamous Epith Cells 4 Amorphous Crystals Mod A Urine Bacteria 0 Urine Mucus Few Ur Culture Indicated? No Preliminary micro results at discharge 10/12/18 11:49 Blood Culture - Preliminary Blood 10/12/18 11:03 Blood Culture - Preliminary Blood 10/12/18 15:57 Urine Culture - Preliminary Urine - Catheterized Medical - DS: A/P - Patient/Caregiver Discharge Instructions Activity: increase activity as tolerated Diet: Renal/Consistent Carbs (With low-fat small meals soluble fiber) Prescriptions: diphenhydrAMINE [Benadryl] 25 mg IV Q4-6HP PRN #30 vial PRN Reason: Nausea HYDROmorphone HCL [Dilaudid] 4 - 6 mg PO Q4-6HP #30 tab - Follow up Plan Follow up with: Tosin Garcia MD [Primary Care Provider] - Jeremiah Obrien MD [Physician] - (Please check in at [facility] at 9:15 for a 10:00 am EGD. Nothing after midnight the night prior to procedure.) Disposition: Home, Self-Care Prognosis: Fair Rehab Potential: Fair Medical - DS: Qual - VTE Deep Vein Thrombosis/Pulmonary Embolism Present on Admission: No
== END 2018-10-13 16:10 | disposition home or self-care (01) | DRG 391 ==
LOC: ED 09:34 → MEDSUR 17:03
PROVIDERS: ADMIT Internal Medicine; ATTEND Internal Medicine

== ENCOUNTER 2021-11-26 19:46 | Inpatient (IN) ==
--- OUTSIDE RECORDS SUMMARY | 2021-11-26 20:16 | External Medical Summary ---
:1970 Author Care Team Providers Name Role Phone [facility] [employer] Representative [phone] Allergies Code Code System Name Reaction Severity Status Onset Ceftriaxone Sodium Hives Moderate Active 0 0 Rash Mild Active Droperidol Other Moderate Active 0 Fentanyl Hives Moderate Active 0 Rash Mild Active Lidocaine Hives Moderate Active 0 Rash Mild Active Metoclopramide Hcl Anaphylaxis Fatal Active 0 Other Moderate Active [place] Hcl Hives Moderate Active 0 Rash Mild Active Prochlorperazine Deactivated 0 Edisylate 0 [id number] RxNorm Prochlorperazine Deactivated 0 Maleate 0 Topiramate Rash Mild Active 1 Adhesive Tape Rash Mild Active 723 RxNorm Amoxicillin Hives Moderate Active 1191 RxNorm Aspirin Other Moderate Active Clavulanic Acid Hives Moderate Active [id number] RxNorm Compazine Hives Moderate Active Rash Mild Active 77156 RxNorm Gabapentin Anaphylaxis Fatal Active 8704 RxNorm Prochlorperazine Anaphylaxis Fatal Active Other Moderate Active 23247 RxNorm Sumatriptan Other Moderate Active Medications Name Status Start Date Stop Date Abilify 10 mg tablet Completed 05/03/2012 01/27/2013 TAKE 1 TABLET (10MG) BY ORAL ROUTE EVERY DAY; DISPENSE :90; REF ILLS :3 Angela 0.1 mg/24 hr transdermal patch Completed 11/24/2011 03/01/2012 APPLY 1 PATCH BY TRANSDERMAL ROUTE 2 TIMES EVERY WEEK ; DISPENSE :8; REFILLS :5 Ambien 10 mg tablet Completed 05/22/2010 08/21/2010 ONE TABLET BY MOUTH AT BEDTIME; DISPENSE :30; REFILLS :2 amlodipine 10 mg tablet Active Not avai lable TAKE 1 TABLET BY MOUTH ONCE DAILY amlodipine 5 mg tablet Completed 09/14/2013 4 TAKE 1 TABLET (5MG) BY ORAL ROUTE EVERY DAY; DISPENSE :30; REFI LLS :5 amlodipine besylate 10 mg tabs Active N ot available amoxicillin 875 mg-potassium clavulanate 125 mg tablet Completed 06/16/2016 Take 1 tablet every 12 hours by oral route. amoxicillin/clavulanate potassium 500-125 mg Completed 06/28/2018 tabs amoxicillin/clavulanate potassium 875-125 mg Completed 06/16/2016 tabs atorvastatin calcium 20 mg tabs Completed 01/17/2016 atorvastatin calcium 40 mg tabs Active Not available auryxia 1 gm 210 mg(fe) tabs Active Not available Avinza 60 mg capsule, extended release Completed 0 06/05/2010 TAKE 1 CAPSULE (60MG) BY ORAL ROUTE EVERY DAY; DISPENSE :31; RE FILLS :0 azithromycin 250 mg tablet Completed 10/19/201310/23 TAKE 2 TABLET BY ORAL ROUTE EVERY DAY F OR 1 DAY THEN 1 TABLET (250 MG) BY ORAL ROUTE ONCE DAILY FOR 4 DAYS; DISPENSE :6; REFILLS :0 azithromycin 250 mg tabs Completed 017 betamethasone dipropionate 0.05 % oint Completed 06/21/2018 betamethasone dipropionate 0.05 % topical ointment Completed 06/28/2018 APPLY A THIN LAYER TO THE AFFECTED AREA(S) BY TOPICAL ROUTE ONC E DAILY calcium acetate 667 mg caps Completed 09/25 carvedilol 12.5 mg tablet Completed 2017 Take 1 tablet twice a day by oral route. carvedilol 12.5 mg tabs Completed 10/14/19 18 carvedilol 25 mg tablet Active 09/25/2017 Not avai lable Take 1 tablet twice a day by oral route. carvedilol 25 mg tabs Active Not availa ble carvedilol 6.25 mg tablet Completed 2017 Take 1 tablet twice a day by oral route. carvedilol 6.25 mg tabs Completed 08/04/20 17 cephalexin 500 mg caps Completed 8 Cipro HC 0.2 %-1 % ear drops,suspension Completed 06/25/20 11 05/03/2012 INSTILL 3 DROP BY OTIC ROUTE EVERY 12 H OURS INTO AFFECTED EAR(S); DISPENSE :15; REFILLS :1 ciprofloxacin 500 mg tablet Completed 07/24 Take 1 tablet every 12 hours by oral route for 10 days. ciprofloxacin hcl 500 mg tabs Completed clobetasol propionate 0.05 % oint Active Not available clonazepam 2 mg tablet Completed 05/28/2011 1 TAKE 1 TABLET (2MG) BY ORAL ROUTE 2 CATHERINE ES EVERY DAY FOR ANXIETY; DISPENSE :60; REFILLS :2 clonidine hcl 0.1 mg tabs Active Not av ailable clonidine HCl 0.2 mg tablet Completed 01/30/201104/24 TAKE 1 TABLET (0.2MG) BY ORAL ROUTE 2 T IMES EVERY DAY; DISPENSE :30; REFILLS :0 clopidogrel 75 mg tabs Active Not avail able dicyclomine hcl 10 mg caps Completed 09/25 doxycycline hyclate 100 mg caps Completed 06/21/2018 doxycycline hyclate 100 mg capsule Completed 09/25/2016 Take 1 capsule twice a day by oral route for 5 days. doxycycline hyclate 100 mg tabs Active Not available doxycycline monohydrate 100 mg capsule Completed 1 11/11/2010 TAKE 1 CAPSULE (100MG) BY ORAL ROUTE 2 TIMES EVERY DAY WITH FOOD.; DISPENSE :30; REFILLS :0 duloxetine 30 mg capsule,delayed release Active Not available Take 1 capsule every day by oral route for 7 days. duloxetine 60 mg capsule,delayed release Active Not available TAKE 1 CAPSULE (60MG) BY ORAL ROUTE EVERY DAY duloxetine hcl 60 mg cpep Active Not av ailable duloxetine hydrochloride 30 mg cpep Active Not available duloxetine hydrochloride 60 mg cpep Active Not available Effexor XR 37.5 mg capsule,extended release Completed 09/25/2016 Take 1 capsule every day by oral route. Elimite 5 % topical cream Completed 2016 APPLY (THOROUGHLY MASSAGE INTO SKIN FRO M HEAD TO SOLES OF FEET) BY TOPICAL ROUTE ONCE LEAVE ON FOR 8-14 HR, THEN REMOVE BY THOROUGH WASHING estradiol 2 mg tablet Active Not availa ble TAKE ONE TABLET BY MOUTH ONCE DAILY estradiol 2 mg tabs Active Not availabl e Flexeril 10 mg tablet Completed 05/10/2010 06/07/2010 TAKE 1 BY ORAL ROUTE EVERY 8 HOURS FOR MUSLCE SPASMS.; DISPENSE :90; REFILLS :0 furosemide 20 mg tablet Completed 08/04/2013 10/17/19 15 TAKE 1 TABLET BY ORAL ROUTE EVERY MORNING; DISPENSE :30; REFILL S :2 furosemide 40 mg tablet Active Not avai lable TAKE ONE TABLET BY MOUTH ONCE DAILY IN THE MORNING. furosemide 40 mg tabs Active Not availa ble Glucagon Emergency Kit 1 mg solution for injection Completed 05/05/2013 08/18/2013 ADMINISTER INJECTION FOR HYPOGLYCEMIA; DISPENSE :1; REFILLS :6 humalog 100 unit/ml soln Completed 017 humalog kwikpen 100 unit/ml sopn Active Not available Humalog Pen 100 unit/mL subcutaneous Completed 05/03/2012 07/04/2014 5 UNITS WITH EACH MEAL ,AND SLIDING SCALE; DISPENSE :3BOX; REFI LLS :3 Humalog U-100 Insulin 100 unit/mL subcutaneous solution Active Not available Inject 5 units plus sliding scale subcu taneously at mealtime. Max 20 units daily hydrocodone/acetaminophen 5-325 mgtabs Active Not available hydromorphone 4 mg tablet Completed 2017 Take 1 tablet every 4-6 hours by oral route as needed. hydromorphone hcl 4 mg tabs Active Not available Insulin Syringe 0.5 mL 30 gauge x 5/16" Completed 01/31/20 15 06/28/2018 USE TO INJECT NOVOLOG AND LANTUS UP TO FIVE TIMES DAILY OR DIRECTED BY PROVIDER; DISPENSE :100; REFILLS :5 Falguni 20 mg capsule,extended release Completed 06/05/2010 ONE CAPSULE TWICE DAILY; DISPENSE :0; REFILLS :0 lantus 100 unit/ml soln Completed 01/17/20 16 Lantus Solostar U-100 Insulin 100 unit/mL (3 mL) subcutaneous pe n Active Not available Inject 15 UNITS SC BID Lantus U-100 Insulin 100 unit/mL subcutaneous solution Completed 01/17/2016 INJECT 15 UNITS SUBCUTANEOUSLY IN THE M ORNING AND 15 UNITS IN THE EVENINGDISCUSS REFILLS AT APPOINTMENT levemir flextouch 100 unit/ml sopn Completed 06/28/2018 Levemir FlexTouch U-100 Insulin 100 unit/mL (3 mL) subcutaneous pen Active Not available Inject by subcutaneous route 10 units in the evening. DUE FOR FOLLOW UP. NEED TO BE SEEN FOR FURTHER REFILLS Levemir U-100 Insulin 100 unit/mL subcutaneous solution Active Not available Inject by subcutaneous route 11 units i n the morning and 11 units in the evening. levofloxacin 500 mg tabs Completed 018 levothyroxine 100 mcg tablet Completed 04/18/2014 ONE TABLET BY MOUTH DAILY; DISPENSE :30; REFILLS :11 lidocaine 5 % oint Completed 09/25/2016 lidocaine/prilocaine 2.5-2.5 % crea Active Not available Lipitor 10 mg tablet Completed 01/17/2016 TAKE 1 TABLET BY ORAL ROUTE EVERY DAY; DISPENSE :; REFILLS :0 lisinopril Completed 01/14/2011 05/03/2012 ONE TABLET BY MOUTH DAILY; DISPENSE :30; REFILLS :5 lisinopril 20 mg-hydrochlorothiazide 25 mg tablet Completed 08/31/2012 05/05/2013 TAKE 2 TABLET BY ORAL ROUTE EVERY DAY; DISPENSE :60; REFILLS :5 lorazepam 0.5 mg tablet Completed 05/03/2012 01/28/20 13 ONE TABLET BY MOUTH UP TO 3 TIMES DAILY NEEDED.; DISPENSE :6 0; REFILLS :2 lorazepam 1 mg tablet Active Not availa ble TAKE 1 TABLET BY MOUTH THREE TIMES SADA Y NEEDED FOR ANXIETY *MUST LAST 28 DAYS* lorazepam 1 mg tabs Active Not availabl e losartan 50 mg tablet Active Not availa ble TAKE ONE TABLET BY MOUTH ONCE DAILY. losartan potassium 50 mg tabs Completed lyrica 25 mg caps Active Not available lyrica 50 mg caps Active Not available lyrica 75 mg caps Active Not available Lyrica 75 mg capsule Completed 08/04/2013 09/14/2013 TAKE 1 CAPSULE BY ORAL ROUTE 3 TIMES EVERY DAY; DISPENSE :270; REFILLS :3 metoclopramide 10 mg tablet Completed 09/15/201104/24 TAKE 1 TABLET (10MG) BY ORAL ROUTE 4 TI MES EVERY DAY 30 MINUTES BEFORE MEALS AND AT BEDTIME; DISPENSE :120; REFILLS :2 metoclopramide hcl 10 mg tabs Completed metronidazole 500 mg tablet Completed 01/14/2011 06/0 09/2010 TAKE 1 TABLET (500MG) BY ORAL ROUTE 2 T IMES EVERY DAY; DISPENSE :20; REFILLS :0 minocycline hcl 100 mg caps Active Not available morphine 15 mg immediate release tablet Completed 04/30/2010 ONE TABLET BY MOUTH ONCE DAILY NEEDE D FOR BREAKTHROUGH PAIN.; DISPENSE :0; REFILLS :0 morphine ER 15 mg tablet,extended release Completed 06/28/2018 Take 1 tablet twice a day by oral route. morphine ER 30 mg tablet,extended release Completed 10/02/2016 TAKE 1 TABLET BY ORAL ROUTE EVERY 12 HOURS morphine sulfate er 15 mg tbcr Completed 2017 morphine sulfate er 30 mg tbcr Completed 0 09/25/2016 nitrofurantoin monohydrate/macrocrystals 100 mg Completed 05/05/2017 caps nortriptyline 10 mg capsule Completed 09/2016 Take 1 capsule every day by oral route at bedtime. nortriptyline hcl 10 mg caps Completed 09/2016 Novolog Flexpen U-100 Insulin aspart 100 unit/mL (3 mL) subc utaneous Completed 07/04/2014 04/23/2016 INJECT BY SUBCUTANEOUS ROUTE PER INS ULIN SLIDING SCALE PROTOCOL. MAXIMUM OF 30 UNITS PER DAY.; DISPENSE :10; REFILLS :3 ofloxacin 0.3 % soln Completed 09/25/2016 omeprazole 20 mg cpdr Active Not availa ble ondansetron 8 mg disintegrating tablet Active Not available TAKE 1 TABLET BY ORAL ROUTE EVERY [address] ON TOP OF THE TONGUE WHERE IT WILL DISSOLVE, THEN SWALLOW ondansetron odt 4 mg tbdp Completed 2017 ondansetron odt 8 mg tbdp Active Not av ailable oxycodone 5 mg capsule Completed 02/04/2010 0 2 TABLETS EVERY 4-6 HOURS NEEDED FOR PAIN.; DISPENSE :60; RE FILLS :0 oxycodone 5 mg tablet Completed 07/01/2013 07/28/2013 TAKE 1 TABLET BY ORAL ROUTE EVERY 4 - 6 HOURS NEEDED; DISPENSE :140; REFILLS :0 oxycodone hcl 5 mg tabs Active Not avai lable Pen Needle 31 gauge x 3/16" Active 11/28/2014 Not available USE WITH LANTUS SOLOSTAR TWICE DAILY; DISPENSE :2 BOXES; REFILL S :3 permethrin 5 % crea Completed 09/25/2016 polyethylene glycol 3350 powd Active No t available polymyxin b sulfate/trimethoprim sulfate Completed 01/17/2016 21681-8.1 unit/ml-% soln prednisolone acetate 1 % susp Completed prednisone 10 mg tabs Completed 09/25/2016 promethazine 25 mg rectal suppository Completed 10/07/2010 10/20/2010 INSERT 1 SUPPOSITORY (25MG) BY RECTAL R OUTE EVERY 6 HOURS NEEDED; DISPENSE :20; REFILLS :1 promethazine 25 mg tablet Completed 03/11/20102012 ONE TABLET BY MOUTH DAILY; DISPENSE :50; REFILLS :1 promethazine 25 mg/mL injection solution Completed 04/23/2016 renvela 800 mg tabs Active Not availabl e Take 1 tab 3 times daily by oral route. sevelamer carbonate 800 mg tabs Active Not available SilvaSorb topical gel,extended release Completed 09/25/2016 Apply per package instructions spironolactone 25 mg tablet Active Not available Take 1 tablet twice a day by oral route. spironolactone 25 mg tabs Completed 2017 sulfamethoxazole 800 mg-trimethoprim 160 mg tablet Completed 03/11/2017 TAKE 1 TABLET BY ORAL ROUTE EVERY 12 HOURS. DRINK PLENTY OF RITIKA ER. sulfamethoxazole/trimethoprim ds 800-160 mg Completed 06/21/2018 tabs sumatriptan 100 mg tablet Completed 05/03/20122012 TAKE 1 TABLET (100MG) BY ORAL ROUTE ONC E WITH FLUIDS EARLY POSSIBLE AFTER THE ONSET OF A MIGRAINE ATTACK;MAY REPEAT AFTER 2 HOURS IF HEADACHE RETURNS, NOT TO EXCEED 200MG IN 24HRS; DISPENSE :10; REFILLS :2 tacrolimus 0.1 % oint Active Not availa ble tacrolimus 0.1 % topical ointment Active Not available APPLY A THIN LAYER TO THE AFFECTED AREA (S) BY TOPICAL ROUTE 2 TIMES PER DAY ; RUB IN GENTLY AND COMPLETELY Test N'Go Test strips Completed 01/31/2015 06/21/2018 USE TO TEST BLOOD SUGARS FOUR TIMES JAYLENE LY OR DIRECTED BY PROVIDER; DISPENSE :100; REFILLS :5 tizanidine hcl 4 mg tabs Completed 018 topiramate 100 mg tablet Completed 04/18/2014 015 TAKE 1 TABLET BY ORAL ROUTE EVERY DAY; DISPENSE :30; REFILLS :5 topiramate 25 mg tablet Completed 09/14/2013 11/01/19 14 TAKE 1 TABLET BY ORAL ROUTE EVERY DAY F OR 7 DAYS, THEN 2 TABLETS EVERY DAY FOR 7 DAYS, THEN 3 TABLETS ONCE DAILY FOR 7 DAYS, THEN 4 TABLETS ONCE DAILY.; DISPENSE :80; REFILLS :0 trazodone 50 mg tablet Completed 11/04/2012 4 TAKE 1 TABLET BY ORAL ROUTE EVERY BEDTI ME NEEDED FOR SLEEP.; DISPENSE :30; REFILLS :5 triamcinolone acetonide 0.1 % crea Completed 09/25/2016 triamcinolone acetonide 0.1 % topical cream Completed 09/25/2016 APPLY A THIN LAYER TO THE AFFECTED AREA(S) BY TOPICAL ROUTE 2 T IMES PER DAY valacyclovir hcl 500 mg tabs Active Not available velphoro 500 mg chew Active Not availab le venlafaxine ER 150 mg capsule,extended release 24 hr Completed 06/28/2018 TAKE 1 CAPSULE BY ORAL ROUTE EVERY DAY venlafaxine ER 75 mg capsule,extended release 24 hr Completed 08/04/2017 TAKE 1 CAPSULE BY ORAL ROUTE EVERY DAY WITH FOOD venlafaxine hcl er 150 mg cp24 Completed 1 venlafaxine hcl er 37.5 mg cp24 Completed 12/08/2016 venlafaxine hcl er 75 mg cp24 Completed Zofran 4 mg tablet Completed 09/10/2010 ONE TABLET BY MOUTH THREE TIMES DAILY; DISPENSE :0; REFILLS :0 Notes: med rec completed verbally with pt 06/28/18. 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 Type 1 Diabetes Mellitus Active Recurrent Major Depression Active Encou nter Anxiety Disorder Active History Migraine Active Polyneuropathy Due to Diabetes Mellitus Active Benign Hypertension Active Right Bundle Branch Block Active Encoun ter Hematemesis Active Encounter Acute Pyelonephritis Active Encounter Lower Urinary Tract Infectious Disease Active Encounter Menopausal Symptom Active Wound Cellulitis Active Encounter Acute Dermatitis Active Encounter Acute Folliculitis Active Encounter Intervertebral Disc Disorder Active Procedures Date Name Performed by 10/16/2011 Total Abdominal Hysterectomy Information not available 08/24/2011 Eye Surgery Procedure Information not av ailable Notes: detached retina 08/24/2010 Eye Surgery Procedure Information not av ailable 08/24/2009 Eye Surgery Procedure Information not av ailable 08/24/2008 Eye Surgery Procedure Information not av ailable 08/24/2002 Gallbladder Removal Information not avai lable 08/24/1997 Caesarean Section Information not avai lable 08/24/1994 Shoulder Joint Surgery Information not a vailable 08/24/1986 Appendix Removal Information not avai lable Results Lab Results Date Name Specimen Result Interpretation Description Value Range Status Address 07/31/2018 Hemoglobin + Hemoglobin 12.7 12.0-15.0 Final [place] Hematocrit, g/dL g/dL [facility] ([facility]) - See Note Below For Original Data Source: [address] [place] [address] Nessa Aguilera, [place] Hematocrit 37.9 % 36.0-48.0 Final [place] n[place] % [facility] ([facility]) - See Note Below For Original Data Source: [address] [place] [address] Nessa Aguilera, [place] 07/24/2018 Glucose, High POC Gluc 184 70-110 Final [place] Fingerstick, mg/dL mg/dL [facility] ([facility]) - See Note Below For Original Data Source: [address] [place] [address] Nessa Aguilera, [place] 07/24/2018 Potassium Potassium 4.9 3.3-5.1 Final [place] mmol/L mmol/L [facility] ([facility]) - See Note Below For Original Data Source: [address] [place] [address] Nessa Aguilera, [place] 07/06/2018 POC Profile POC Hematocrit 40.0 % 36.0-4 8.0 Final [place] Chem8+ % [facility] ([facility]) - See Note Below For Original Data Source: [address] [place] [address] Nessa Aguilera, Adam High POC 149 70-105 Final [place] Glucose,random mg/dL mg/dL [facility]) - See Note Below For Original Data Source: [address] [place] [address] Nessa Aguilera, Adam High POC Blood Urea 96 mg/dL 6-20 mg/dL Fi nal [place] Nitrogen [facility] ([facility]) - See Note Below For Original Data Source: [address] [place] [address] Ale, Adam High POC Creatinine 4.6 0.6-1.1 Final [place] mg/dL mg/dL [facility] ([facility]) - See Note Below For Original Data Source: [address] [place] [address] Nessa Aguilera, Adam POC Sodium 134 133-145 Final [place] mmol/L mmol/L [facility] ([facility]) - See Note Below For Original Data Source: [address] [place] [address] [address], [place] POC Potassium 4.2 3.3-5.1 Final [place] mmol/L mmol/L [facility] ([facility]) - See Note Below For Original Data Source: [address] [place] [address] 6978, [place] POC Chloride 99 96-108 Final [place] ho mmol/L mmol/L [facility] ([facility]) - See Note Below For Original Data Source: [address] [place] [address] [address], [place] POC Carbon 23 22-30 Final [place] Dioxide mmol/L mmol/L [facility] ([facility]) - See Note Below For Original Data Source: [address] [place] [address] 69, [place] Low POC 1.04 1.16-1.32 Final [place] Calcium,ionized mmol/L mmol/L [facility] e[facility] ([facility]) - See Note Below For Original Data Source: [address] [place] [address] 69, [place] 07/05/2018 Basic Metabolic Glucose,random 76 mg/dL 70-105 Final [place] Panel mg/dL [facility] ([facility]) - See Note Below For Original Data Source: [address] [place] [address] 69, [place] High Blood Urea 83 mg/dL 6-20 mg/dL Final [place] Nitrogen [facility] ([facility]) - See Note Below For Original Data Source: [address] [place] [address] 69, [place] High Creatinine 4.0 0.6-1.1 Final [place] mg/dL mg/dL [facility] ([facility]) - See Note Below For Original Data Source: [address] [place] [address] 6978, [place] Sodium 138 133-145 Final [place] mmol/L mmol/L [facility] ([facility]) - See Note Below For Original Data Source: [address] [place] [address] 6978, [place] Potassium 4.1 3.3-5.1 Final [place] mmol/L mmol/L [facility] ([facility]) - See Note Below For Original Data Source: [address] [place] [address] 6978, [place] Low Chloride 94 96-108 Final [place] mmol/L mmol/L [facility] ([facility]) - See Note Below For Original Data Source: [address] [place] [address] 6978, [place] Carbon Dioxide 22 22-30 Final [place] mmol/L mmol/L [facility] ([facility]) - See Note Below For Original Data Source: [address] [place] [address] Nessa Aguilera, Adam High Anion Gap 22.0 8-16 Final [place] [facility]) - See Note Below For Original Data Source: [address] [place] [address] Nessa Aguilera, Adam Calcium 9.8 8.6-10.4 Final [place] mg/dL mg/dL [facility] ([facility]) - See Note Below For Original Data Source: [address] [place] [address] Nessa Ferreira, [place] Glomerular 13 Final [place] Filtration Rate H ealth Data [facility] ([facility]) - See Note Below For Original Data Source: [address] [place] [address] Onesimo Collinsise 07/05/2018 CBC/auto Wbc 6.2 4.5-11.0 Final [place] Diff/plt K/mcL K/mcL [facility] ([facility]) - See Note Below For Original Data Source: [address] [place] [address] Nessa Agiulera, Adam Rbc 4.28 4.00-5.20 Final [place] M/mcL M/mcL [facility] ([facility]) - See Note Below For Original Data Source: [address] [place] [address] Nessa Aguilera, Adam Hemoglobin 12.5 12.0-15.0 Final [place] n[place] g/dL g/dL [facility] ([facility]) - See Note Below For Original Data Source: [address] [place] [address] Nessa Ferreira, Adam Hematocrit 38.1 % 36.0-48.0 Final Id n[place] % [facility] ([facility]) - See Note Below For Original Data Source: [address] [place] [address] Nessa Aguilera, Adam Mean Cell 89.1 fL 80.0-100.0 Final [place] Volume fL [facility] ([facility]) - See Note Below For Original Data Source: [address] [place] [address] Nessa Aguilera, Adam Mean 29.2 pg 26.0-34.0 Final [place] Corpuscular pg Healt h Hemoglobin [facility] ([facility]) - See Note Below For Original Data Source: [address] [place] [address] Nessa Ferreira, [place] Mean 32.8 31.0-36.0 Final [place] Corpuscular HGB g/dL g/dL H ealth Conc Data Exchange ([facility]) - See Note Below For Original Data Source: [facility] 69, [place] High Red Cell 15.1 % 11.5-14.5 Final [place] Distribution % Heal th Width Data Exchange ([facility]) - See Note Below For Original Data Source: [facility] 6978, [place] High Platelet Count 488 140-440 Final [place] K/mcL K/mcL [facility] ([facility]) - See Note Below For Original Data Source: [address] [place] [address] 69, [place] Mean Platelet 7.4 fL 7.4-10.4 Final [place] Volume fL [facility] ([facility]) - See Note Below For Original Data Source: [address] [place] [address] 69, [place] Gran % 52.5 % 38.0-78.0 Final [place] % [facility] ([facility]) - See Note Below For Original Data Source: [address] [place] [address] 69, [place] Lymph % 30.5 % 15.5-49.0 Final [place] % [facility] ([facility]) - See Note Below For Original Data Source: [address] [place] [address] 69, [place] % 9.5 % 1.0-12.0 % Final [place] [facility]) - See Note Below For Original Data Source: [address] [place] [address] 69, [place] Eos % 7.0 % 0.0-7.0 % Final [place] [facility] ([facility]) - See Note Below For Original Data Source: [address] [place] [address] 69, [place] Baso % 0.5 % 0.0-2.0 % Final [place] [facility]) - See Note Below For Original Data Source: [address] [place] [address] 69, [place] Gran # 3.3 1.8-8.0 Final [place] K/mcL K/mcL [facility] ([facility]) - See Note Below For Original Data Source: [address] [place] [address] 69, [place] Lymph # 1.9 1.5-4.8 Final [place] K/mcL K/mcL [facility] ([facility]) - See Note Below For Original Data Source: [address] [place] [address] 69, [place] # 0.6 0.1-0.9 Final [place] K/mcL K/mcL [facility] ([facility]) - See Note Below For Original Data Source: [address] [place] [address] 6978, [place] Eos # 0.4 0.0-0.7 Final [place] K/mcL K/mcL [facility] ([facility]) - See Note Below For Original Data Source: [address] [place] [address] 6978, [place] Baso # 0.0 0.0-0.3 Final [place] K/mcL K/mcL [facility] ([facility]) - See Note Below For Original Data Source: [address] [place] [address] 6978, [place] 06/28/2018 Hemoglobin a1C, HGBA1C 8.0 Ilana [facility] Center: [place] [id number] [facility] 06/28/2018 Alcohol Use Women (18-65) None [place] And Disorders How Many Times Josef Identification in the past Health Test* Year Have You Tigre ter: Had 4 or More Mari s Drinks in a Healt h Day? 1203 [facility] Total Points 0 Yan is And (Must Be Josef [facility] Health Calculated Center : Using Points Jeffrey from Questions He alth AU1-AU10 Only) 12 03 [facility] Guideline for 0-6 Le wis And Interpretation Points Cl ark (Female) Health - Zone I Center: - Low Jeffrey Risk - Health Feedback 1203 and [facility] educrivera [place] n 06/24/2018 CBC/auto Wbc 5.3 4.5-11.0 Final Id nakia Diff/plt K/mcL K/mcL Health Data Exchange ([facility]) - See Note Below For Original Data Source: [address] [place] [address] 69, [place] Low Rbc 3.04 4.00-5.20 Final [place] M/mcL M/mcL Health Data [facility] ([facility]) - See Note Below For Original Data Source: [address] [place] [address] 6978, [place] Low Hemoglobin 9.0 g/dL 12.0-15.0 Final [place] g/dL [facility] Data [facility] ([facility]) - See Note Below For Original Data Source: [address] [place] [address] 69, [place] Low Hematocrit 27.1 % 36.0-48.0 Final Id nakia % [facility] Data [facility] ([facility]) - See Note Below For Original Data Source: [facility] Nessa 6978, [place] Mean Cell 89.0 fL 80.0-100.0 Final I [place] Volume fL Health Data [facility] ([facility]) - See Note Below For Original Data Source: [facility] 6978, [place] Mean 29.5 pg 26.0-34.0 Final [place] Corpuscular pg Healt h Hemoglobin Data Exchange ([facility]) - See Note Below For Original Data Source: [address] [place] [address] Ale, [place] Mean 33.2 31.0-36.0 Final [place] Corpuscular HGB g/dL g/dL H ealth Conc Data Exchange ([facility]) - See Note Below For Original Data Source: [address] [place] [address] Jhon, [place] Red Cell 14.2 % 11.5-14.5 Final [place] o Distribution % Heal th Width Data Exchange ([facility]) - See Note Below For Original Data Source: [address] [place] [address] Jhon, [place] Platelet Count 189 140-440 Final [place] K/mcL K/mcL [facility] Data [facility] ([facility]) - See Note Below For Original Data Source: [address] [place] [address] John, [place] Mean Platelet 8.6 fL 7.4-10.4 Final [place] Volume fL [facility] ([facility]) - See Note Below For Original Data Source: [address] [place] [address] Jhon, [place] Gran % 55.1 % 38.0-78.0 Final [place] % [facility] Data [facility] ([facility]) - See Note Below For Original Data Source: [address] [place] [address] Jhon, [place] Lymph % 26.5 % 15.5-49.0 Final [place] % [facility] Data [facility] ([facility]) - See Note Below For Original Data Source: [address] [place] [address] Jhon, [place] High [place] % 12.7 % 1.0-12.0 % Final [place] [facility] ([facility]) - See Note Below For Original Data Source: [address] [place] [address] Jhon, [place] Eos % 5.2 % 0.0-7.0 % Final [place] [facility] ([facility]) - See Note Below For Original Data Source: [address] [place] [address] Jhon, [place] Baso % 0.5 % 0.0-2.0 % Final [place] [facility] ([facility]) - See Note Below For Original Data Source: [address] [place] [address] 6978, [place] Gran # 2.9 1.8-8.0 Final [place] K/mcL K/mcL [facility] ([facility]) - See Note Below For Original Data Source: [address] [place] [address] 6978, [place] Low Lymph # 1.4 1.5-4.8 Final [place] K/mcL K/mcL [facility] ([facility]) - See Note Below For Original Data Source: [address] [place] [address] 6978, [place] # 0.7 0.1-0.9 Final [place] K/mcL K/mcL [facility] ([facility]) - See Note Below For Original Data Source: [address] [place] [address] 69, [place] Eos # 0.3 0.0-0.7 Final [place] K/mcL K/mcL [facility] ([facility]) - See Note Below For Original Data Source: [address] [place] [address] 69, [place] Baso # 0.0 0.0-0.3 Final [place] K/mcL K/mcL [facility] ([facility]) - See Note Below For Original Data Source: [address] [place] [address] 6978, [place] 06/24/2018 Inpatient Panel High Glucose,random 324 70 -105 Final [place] mg/dL mg/dL [facility] ([facility]) - See Note Below For Original Data Source: [address] [place] [address] 69, [place] High Blood Urea 53 mg/dL 6-20 mg/dL Final [place] Nitrogen [facility] ([facility]) - See Note Below For Original Data Source: [address] [place] [address] 69, [place] High Creatinine 4.2 0.6-1.1 Final [place] mg/dL mg/dL [facility] Data [facility] ([facility]) - See Note Below For Original Data Source: [address] [place] [address] 6978, [place] Sodium 134 133-145 Final [place] mmol/L mmol/L [facility] Data [facility] ([facility]) - See Note Below For Original Data Source: [address] [place] [address] 69, [place] Potassium 3.8 3.3-5.1 Final [place] mmol/L mmol/L [facility] ([facility]) - See Note Below For Original Data Source: [address] [place] [address] 6978, [place] Low Chloride 93 96-108 Final [place] mmol/L mmol/L [facility] Data [facility] ([facility]) - See Note Below For Original Data Source: [address] [place] [address] 69, [place] Carbon Dioxide 27 22-30 Final I [place] mmol/L mmol/L [facility] Data [facility] ([facility]) - See Note Below For Original Data Source: [address] [place] [address], [place] Anion Gap 14.0 8-16 Final [place] [facility] ([facility]) - See Note Below For Original Data Source: [address] [place] [address], [place] Uric Acid 4.6 2.5-8.0 Final [place] mg/dL mg/dL [facility] ([facility]) - See Note Below For Original Data Source: [address] [place] [address], [place] Low Calcium 8.3 8.6-10.4 Final [place] mg/dL mg/dL [facility] ([facility]) - See Note Below For Original Data Source: [address] [place] [address], [place] High Phosphorus 4.9 2.7-4.5 Final [place] mg/dL mg/dL [facility] ([facility]) - See Note Below For Original Data Source: [address] [place] [address], [place] Magnesium 2.4 1.6-2.5 Final [place] mg/dL mg/dL [facility] ([facility]) - See Note Below For Original Data Source: [address] [place] [address], [place] Total Protein 6.3 5.9-8.4 Final [place] gm/dL gm/dL [facility] ([facility]) - See Note Below For Original Data Source: [address] [place] [address], [place] Low Albumin 3.1 3.2-5.2 Final [place] gm/dL gm/dL [facility] ([facility]) - See Note Below For Original Data Source: [address] [place] [address], [place] Globulin 3.2 2.2-3.7 Final [place] gm/dL gm/dL [facility] ([facility]) - See Note Below For Original Data Source: [address] [place] [address], [place] Alb/glob Ratio 1.0 1.0-2.3 Final [place] [facility] Data [facility] ([facility]) - See Note Below For Original Data Source: [address] [place] [address] 69, [place] Bilirubin,tota 0.2 0.0-1.0 Final [place] l mg/dL mg/dL Health Data Exchange ([facility]) - See Note Below For Original Data Source: [address] [place] [address] 69, [place] Bilirubin,dire < 0.2 0.0-0.[address] [place] [address] mg/dL mg/dL [facility] Data [facility] ([facility]) - See Note Below For Original Data Source: [address] [place] [address] 69, [place] AST/SGOT 31 U/l 0-37 U/l Final [place] Health Data Exchange ([facility]) - See Note Below For Original Data Source: [address] [place] [address] 69, [place] ALT/SGPT 20 U/l 0-40 U/l Final [place] [facility] Data [facility] ([facility]) - See Note Below For Original Data Source: [address] [place] [address] 69, [place] Alkaline 55 U/L 39-117 U/L Final Michelle ho Phosphatase Healt h Data Exchange ([facility]) - See Note Below For Original Data Source: [address] [place] [address] 69, [place] Glomerular 12 Final [place] Filtration Rate H ealth Data Exchange ([facility]) - See Note Below For Original Data Source: [address] [place] [address] 69, [place] Gamma Glutamyl 32 U/L 5-36 U/L Final [place] Transferase Healt h Data Exchange ([facility]) - See Note Below For Original Data Source: [address] [place] [address] 69, [place] Lactate 243 U/L 94-250 U/L Final Michelle ho Dehydrogenase Hea lth Data Exchange ([facility]) - See Note Below For Original Data Source: [address] [place] [address] 69, [place] Triglycerides 139 <150 mg/dL Final [place] mg/dL Health Data [facility] ([facility]) - See Note Below For Original Data Source: [facility] 6978, [place] 04/02/2018 Microalbumin, Microalbumin 262 Urine Creatinine Ratio 11/03/2017 BMP, Serum or Blood Low Sodium 133 135-145 Vijaya l [facility] Plasma venou mmol/L mmol/L ([facility]): [address], [place] Blood Potassium 4.4 3.5-5.3 Final [facility] rp venou mmol/L mmol/L ([facility]): [address], [place] Blood Low Chloride 85 97-107 Final [facility] venou mmol/L mmol/L ([facility]): [address], [place] Blood Co2 25 22-29 Final [facility] venou mmol/L mmol/L ([facility]): [address], [place] Blood High Glucose 224 65-99 Final [facility] venou mg/dL mg/dL ([facility]): [address], [place] Blood High Bun 101 8-25 mg/dL Final [facility] venou mg/dL ([facility]): [address], [place] Blood High Creatinine 3.56 0.50-1.00 Final [place] [facility] ven[place] mg/dL mg/dL ([facility]): [address], [place] Blood Calcium 10.2 8.5-10.2 Final [facility] venou mg/dL mg/dL ([facility]): [address], [place] Blood High Anion Gap 23 9-18 Final [facility] venou mmol/L mmol/L ([facility]): [address], [place] Blood BUN/creatinine 28.4 11.0-35.0 Final [facility] venou Ratio (Calc) ratio ratio ([facility]): [address], [place] Blood Low Estimated GFR 14 >60 Final [place] [facility] venou (Calc) mL/min/1 mL/min/1.7 ([facility] .73m2 3m2 [facility]): [address], [place] 10/14/2017 BMP, Serum or Blood Sodium 135 135-145 Vijaya l [facility] Plasma venou mmol/L mmol/L ([facility]): [address], [place] Blood Potassium 4.1 3.5-5.3 Final [facility] [place]ou mmol/L mmol/L ([facility]): [address], [place] Blood Low Chloride 87 97-107 Final [facility] venou mmol/L mmol/L ([facility]): [address] [facility] [place], [place] Blood Co2 27 22-29 Final [facility] venou mmol/L mmol/L ([facility]): [address] [facility], [place] Blood Glucose 66 mg/dL 65-99 Final [facility] venou mg/dL ([facility]): [address] [facility], [place] Blood High Bun 100 8-25 mg/dL Final [facility] venou mg/dL ([facility]): [address] [facility], [place] Blood High Creatinine 4.31 0.50-1.00 Final [place] [facility] mg/dL mg/dL ([facility]): [address] [facility], [place] Blood Calcium 9.4 8.5-10.2 Final [facility] venou mg/dL mg/dL ([facility]): [address] [facility], [place] Blood High Anion Gap 21 9-18 Final [facility] venou mmol/L mmol/L ([facility]): [address] [facility], [place] Blood BUN/creatinine 23.2 11.0-35.0 Final [facility] venou Ratio (Calc) ratio ratio ([facility]): [address] [facility], [place] Blood Low Estimated GFR 11 >60 Final [place] [facility] venou (Calc) mL/min/1 mL/min/1.7 ([facility] .73m2 3m2 [place] [facility]): [address] [facility] 10/14/2017 Drug Screen, Amphetemine negative [place] And Urine [facility]: [address] Barbituates negative [facility]: [address] Benzodiazapine negative Dionicio [facility]: [address] Cocaine negative [facility]: [address] Ecstasy negative [facility]: [address] Methamphetamin negative Ameena [facility]: [address] Methadone negative [facility]: [address] Opiates positive [facility]: [address] Oxycodone negative [facility]: [address] Phencyclidine negative [facility]: [address] Tricyclic positive Sejal dangelo And Antidepressant [facility]: [address] Marijuana negative [facility]: [address] Buprenorphine negative Isidro [facility] Center: [address] Propoxyphene negative Gaby Chamberlain [facility] Center: [address] 10/14/2017 Hemoglobin a1C, HGBA1C 7.6 [place] And Fingerstick Jose[facility] Center: [address] 05/05/2017 Culture, Urine URINE Culture Urine Final [facility] [place] Rflx ([facility]): [address], [place] 04/06/2017 Urinalysis, No observation Dipstick, Auto recorded. 12/08/2016 Culture, Urine [facility]: [address] [place] [address] 03/26/2016 Culture, Urine Urine Results [facility]: [address] [place] [address] 08/14/2015 Culture, [facility] [address] [place] [address] Hemoglobin a1C, HGBA1C 9.4 [place] And Fingerstick [facility]: [address] Drug Screen, Amphetemine negative [place] And Urine [facility]: [address] Barbituates negative Le toi [facility]: [address] Benzodiazapine negative [place] And s [facility]: [address] Cocaine negative [facility]: [address] Ecstasy negative [facility]: [address] Methamphetamin negative [place] And es [facility] [address] Methadone negative [facility]: [address] Opiates positive Isidro [facility] Center: [address] Oxycodone negative [facility]: [address] Phencyclidine negative [facility]: [address] Tricyclic negative Yani s And Antidepressant [facility]: [address] Marijuana negative Sejal dangelo [facility]: [address] Buprenorphine negative Isidro [facility] Center: [address] Propoxyphene negative L nancy And [facility] Center: [address] Urinalysis, Urine Leukocytes 25 [place] And Dipstick, Auto [facility]: [address] Urine Nitrite neg Osman Bahena [facility] Center: [address] Urine Urobilinogen norm [facility]: [address] Urine Protein 1000 Osman Bahena [facility] Center: [address] Urine Ph 6.0 Is[facility]ro [facility] Center: [address] Urine Blood neg Isidro [facility] Center: [address] Urine Specific 1.[address] Hydes Josef [facility] Center: [address] Urine Ketones neg Osman Bahena [facility] Center: [address] Urine Bilirubin 0.5 Isidro [facility] Center: [address] Urine Glucose 250 Osman Bahena [facility] Center: [address] Urine Color Lt [place] And Yellow Jose[facility] Center: [address] Urine Clarity Clear Osman Bahena [facility] Center: [address] Drug Screen, Urine Amphetemine negative [place] And Urine [facility]: [address] Urine Barbituates negative [facility]: [address] Urine Benzodiazapine positive Dionicio [facility]: [address], [place] Urine Cocaine negative [facility]: [address], [place] Urine Ecstasy negative [facility]: [address], [place] Urine Methamphetamin negative Osman And es [facility]: [address], [place] Urine Methadone positive Sejal s [facility]: [address] Urine Opiates positive [facility]: [address], [place] Urine Oxycodone positive Yani s [facility]: [address] Urine Phencyclidine positive [facility]: [address] Urine Tricyclic positive Lewi s [facility] Antidepressant [facility]: [address] Urine Marijuana negative Yani s [facility]: [address] Urine Buprenorphine negative [facility]: [address] Urine Propoxyphene positive L nancy [facility]: [address], [place] Drug Screen, Amphetemine negative [place] And Urine [facility]: [address] Barbituates negative [place] to[place] [facility]: [address] Benzodiazapine negative [place] And s [facility]: [address] Cocaine negative [facility]: [address] Ecstasy negative [facility]: [address] Methamphetamin negative [place] And es [facility]: [address] Methadone negative Sejal s [facility]: [address] Opiates positive [facility]: [address] Oxycodone negative Lewi s [facility]: [address] Phencyclidine negative [facility]: [address] Tricyclic negative Lewi s And Antidepressant [facility]: [address] Marijuana negative [facility]: [address] Buprenorphine negative [facility]: [address] Propoxyphene negative L ewsam [facility]: [address] Hemoglobin a1C, HGBA1C 8.2 [place] And Fingerstick Josef [facility] Center: [address] Urinalysis, Leukocytes 75 [place] And Dipstick, Auto [facility]: [address] Nitrite neg Osman Bahena [facility] Center: [address] Urobilinogen norm Yan vargas [facility]: [address] Protein 100 Osman Bahena [facility] Center: [address] Ph 5.5 Isidro [facility] Center: [address] Blood neg [facility]: [address] Specific 1.025 [place] A [address] Hydes [facility]: [address] Ketones neg Osman Bahena [facility] Center: [address] Bilirubin neg Isidro [facility] Center: [address] Glucose 500 Osman Bahena [facility] Center: [address] Color lt [place] And yellow Josef [facility] Center: [address] Clarity clear Osman Bahena [facility] Center: [address] Drug Screen, Amphetemine negative [place] And Urine [facility]: [address] Barbituates negative [facility]: [address] Benzodiazapine negative [place] And s Josef [facility] Center: [address] Cocaine negative [facility]: [address] Ecstasy negative [facility]: [address] Methamphetamin negative [place] And es [facility]: [address] Methadone negative Sejal dangelo [facility]: [address] Opiates positive [facility]: [address] Oxycodone negative Sejal dangelo [facility]: [address] Phencyclidine negative [facility]: [address] Tricyclic positive Lewi s And Antidepressant [facility]: [address] Marijuana negative Yani antolin [facility]: [address] Buprenorphine negative [facility]: [address] Propoxyphene negative L ewsam [facility]: [address] Hemoglobin a1C, HGBA1C 9.4 [place] And Fingerstick [facility]: [address] Drug Screen, Amphetemine negative [place] And Urine [facility]: [address] Barbituates negative Le toi [facility]: [address] Benzodiazapine negative [place] And s [facility]: [address] Cocaine negative [facility]: [address] Ecstasy negative [facility]: [address] Methamphetamin negative [place] And es [facility]: [address] Methadone negative Sejal dangelo [facility]: [address] Opiates positive [facility]: [address] Oxycodone negative Sejal dangelo [facility]: [address] Phencyclidine negative [facility]: [address] Tricyclic positive Lewi s And Antidepressant [facility]: [address] Marijuana negative Yani s [facility]: [address] Buprenorphine negative [facility]: [address] Propoxyphene negative L ewsam [facility]: [address] Hemoglobin a1C, HGBA1C 9.3 [place] And Fingerstick Josef [facility] Center: [address] Microalbumin, Microalbumin positive [place] And Dipstick, Urine C lark [facility] Center: [address] Urinalysis, Leukocytes 500 [place] And Dipstick, Auto [facility]: [address] Nitrite neg Osman Bahena [facility] Center: [address] Urobilinogen norm Yan vargas And [facility]: [address] Protein 300 Osman Bahena [facility] Center: [address] Ph 5.0 [place] [facility] Center: [address] Blood neg [place] [facility] Center: [address] Specific 1.[address] Hydes Josef [facility] Center: [address] Ketones neg Osman Bahena [facility] Center: [address] Bilirubin neg Isidro [facility] Center: [address] Glucose 250 Osman Bahena [facility] Center: [address] Color light [place]man And yellow Josef [facility] Center: [address] Clarity clear Osman Bahena [facility] Center: [address] Hemoglobin a1C, HGBA1C 8.8 [place] And Fingerstick Josef [facility] Center: [address] Glucose, Blood Glucose: 186 [place] And Fingerstick, mg/dl [facility] Center: [address] Past Encounters None recorded. Social History Tobacco Smoking Status Never Smoker Vaccine List Vaccine Type influenza, injectable, quadrivalent, pre servative free 07/03/2016 influenza, seasonal, injectable 06/22/2012 influenza, seasonal, intradermal, preser vative free 06/22/2012 pneumococcal polysaccharide PPV23 06/22/2010 Plan of Care Reminders Provider Appointments None recorded. Lab None recorded. Referral None recorded. Procedures None recorded. Surgeries None recorded. Imaging None recorded. Vitals 06/28/2018 02:00PM Diabetes Visit Height Weight BMI Blood Pressure 5 ft 6 in 189 lbs 2 oz 30.5 kg/m2 134/66 mm[Hg] 11/03/2017 02:40PM Office Visit 20 Height Weight BMI Blood Pressure 5 ft 6 in 190 lbs 4 oz 30.7 kg/m2 130/70 mm[Hg] 10/14/2017 10:20AM Office Visit 20 Height Weight Blood Pressure 5 ft 6 in 140/68 mm[Hg] 08/04/2017 02:30PM Office Visit Height Weight BMI Blood Pressure 5 ft 6 in 197 lbs 2 oz 31.8 kg/m2 158/98 mm[Hg] 05/05/2017 01:45PM Office Visit Height Weight BMI Blood Pressure 5 ft 6 in 193 lbs 31.2 kg/m2 210/112 mm[Hg] 03/11/2017 11:00AM SPECIALTY 30 Height Weight BMI Blood Pressure 5 ft 6 in 194 lbs 16 oz 31.5 kg/m2 138/86 mm[Hg] 12/08/2016 02:45PM Office Visit Height Weight BMI Blood Pressure 5 ft 6 in 195 lbs 8 oz 31.6 kg/m2 184/100 mm[Hg] 09/25/2016 03:15PM SPECIALTY 30 Height Weight BMI Blood Pressure 5 ft 6 in 188 lbs 8 oz 30.4 kg/m2 158/92 mm[Hg] 07/03/2016 10:30AM Office Visit Height Weight BMI Blood Pressure 5 ft 6 in 187 lbs 6.4 oz 30.2 kg/m2 125/87 mm[Hg] 06/16/2016 09:00AM Office Visit Height Weight BMI Blood Pressure 5 ft 6 in 196 lbs 12.8 oz 31.8 kg/m2 130/80 mm[Hg] 05/15/2016 05:00PM SAME DAY APPOINTMENT Height Weight BMI Blood Pressure 5 ft 6 in 195 lbs 9.6 oz 31.6 kg/m2 138/80 mm[Hg] 05/07/2016 11:30AM MA Visit Height 5 ft 6 in 04/23/2016 03:15PM Women Health Exam Height Weight BMI Blood Pressure 5 ft 6 in 191 lbs 30.8 kg/m2 148/60 mm[Hg] 04/08/2016 11:30AM SAME DAY APPOINTMENT Height Weight BMI Blood Pressure 5 ft 6 in 193 lbs 31.2 kg/m2 154/86 mm[Hg] 03/26/2016 04:00PM SAME DAY APPOINTMENT Height Weight BMI Blood Pressure 5 ft 6 in 192 lbs 31 kg/m2 148/86 mm[Hg] 03/10/2016 09:30AM SAME DAY APPOINTMENT Height Weight BMI Blood Pressure 5 ft 6 in 192 lbs 4 oz 31 kg/m2 156/92 mm[Hg] 01/17/2016 08:45AM SPECIALTY 30 Height Weight BMI Blood Pressure 5 ft 6 in 188 lbs 30.3 kg/m2 146/88 mm[Hg] 11/05/2015 03:15PM SPECIALTY 30 Height Weight BMI Blood Pressure 5 ft 6 in 194 lbs 31.3 kg/m2 138/72 mm[Hg] 08/14/2015 03:15PM SAME DAY APPOINTMENT Height Weight BMI Blood Pressure 5 ft 6 in 191 lbs 9.6 oz 30.9 kg/m2 160/88 mm[Hg] 08/02/2015 10:00AM Office Visit Height Weight BMI Blood Pressure 5 ft 6 in 189 lbs 30.5 kg/m2 162/100 mm[Hg] 05/03/2015 Blood Pressure 153/71 mm[Hg] 04/25/2015 Height Weight BMI Blood Pressure 5 ft 6 in 186 lbs 30.02 kg/m2 166/102 mm[Hg] 03/21/2015 Height Blood Pressure 5 ft 6 in 138/88 mm[Hg] 02/12/2015 Height Weight BMI Blood Pressure 5 ft 6 in 184 lbs 29.70 kg/m2 132/86 mm[Hg] 02/01/2015 Height Weight BMI Blood Pressure 5 ft 6 in 180 lbs 29.05 kg/m2 120/82 mm[Hg] 01/01/2015 Height Weight BMI Blood Pressure 5 ft 6 in 184 lbs 29.70 kg/m2 141/96 mm[Hg] 12/04/2014 Height Blood Pressure 5 ft 6 in 158/104 mm[Hg] 10/17/2014 Height Weight BMI Blood Pressure 5 ft 6 in 187 lbs 30.18 kg/m2 132/94 mm[Hg] 07/04/2014 Height Weight BMI Blood Pressure 5 ft 6 in 196 lbs 31.63 kg/m2 148/84 mm[Hg] 04/18/2014 Height Weight BMI Blood Pressure 5 ft 6 in 194 lbs 31.31 kg/m2 140/88 mm[Hg] 02/14/2014 Height Weight BMI Blood Pressure 5 ft 6 in 191 lbs 30.82 kg/m2 158/92 mm[Hg] 01/31/2014 Height Weight BMI Blood Pressure 5 ft 6 in 191 lbs 12.8 oz 30.95 kg/m2 138/82 mm[Hg] 12/21/2013 Height Weight BMI Blood Pressure 5 ft 6 in 189 lbs 30.50 kg/m2 168/98 mm[Hg] 10/31/2013 Height Weight BMI Blood Pressure 5 ft 6 in 192 lbs 30.99 kg/m2 92/65 mm[Hg] 10/19/2013 Height Weight BMI Blood Pressure 5 ft 6 in 189 lbs 30.50 kg/m2 150/98 mm[Hg] 09/14/2013 Height Weight BMI Blood Pressure 5 ft 6 in 190 lbs 30.66 kg/m2 134/88 mm[Hg] 08/04/2013 Height Weight BMI Blood Pressure 5 ft 6 in 189 lbs 30.50 kg/m2 168/94 mm[Hg] 05/05/2013 Height Weight BMI Blood Pressure 5 ft 6 in 181 lbs 29.21 kg/m2 184/110 mm[Hg] 01/27/2013 Height Weight BMI Blood Pressure 5 ft 6 in 180 lbs 29.05 kg/m2 134/80 mm[Hg] 11/04/2012 Height Weight BMI Blood Pressure 5 ft 6 in 181 lbs 29.21 kg/m2 140/86 mm[Hg] 09/15/2012 Blood Pressure 148/82 mm[Hg] 08/31/2012 Height Weight BMI Blood Pressure 5 ft 6 in 191 lbs 30.82 kg/m2 190/106 mm[Hg] 08/25/2012 Height Weight BMI Blood Pressure 5 ft 6 in 191 lbs 30.82 kg/m2 176/94 mm[Hg] 06/22/2012 Height Weight BMI Blood Pressure 5 ft 6 in 169 lbs 27.27 kg/m2 116/76 mm[Hg] 05/03/2012 Height Weight BMI Blood Pressure 5 ft 6 in 174 lbs 9.6 oz 28.18 kg/m2 180/98 mm[Hg] 03/01/2012 Height Weight BMI Blood Pressure 5 ft 6 in 160 lbs 9.6 oz 25.92 kg/m2 120/78 mm[Hg] 11/24/2011 Height Weight BMI Blood Pressure 5 ft 6 in 152 lbs 12.8 oz 24.66 kg/m2 116/76 mm[Hg] 09/15/2011 Height Weight BMI Blood Pressure 5 ft 6 in 158 lbs 25.50 kg/m2 110/60 mm[Hg] 08/06/2011 Height Weight BMI Blood Pressure 5 ft 6 in 161 lbs 12.8 oz 26.11 kg/m2 126/80 mm[Hg] 07/22/2011 Height Weight BMI Blood Pressure 5 ft 6 in 159 lbs 12.8 oz 25.79 kg/m2 130/86 mm[Hg] 06/25/2011 Height Weight BMI Blood Pressure 5 ft 6 in 155 lbs 3.2 oz 25.05 kg/m2 124/70 mm[Hg] 05/28/2011 Height Weight BMI Blood Pressure 5 ft 6 in 152 lbs 24.53 kg/m2 138/82 mm[Hg] 04/22/2011 Height Weight BMI Blood Pressure 5 ft 6 in 149 lbs 9.6 oz 24.14 kg/m2 130/78 mm[Hg] 03/28/2011 Height Blood Pressure 5 ft 6 in 116/78 mm[Hg] 02/28/2011 Height Weight BMI Blood Pressure 5 ft 6 in 157 lbs 12.8 oz 25.47 kg/m2 132/80 mm[Hg] 01/14/2011 Height Weight BMI Blood Pressure 5 ft 6 in 164 lbs 6.4 oz 26.53 kg/m2 160/98 mm[Hg] 12/10/2010 Height Weight BMI Blood Pressure 5 ft 6 in 168 lbs 6.4 oz 27.18 kg/m2 122/78 mm[Hg] 11/11/2010 Height Weight BMI Blood Pressure 5 ft 6 in 162 lbs 12.8 oz 26.27 kg/m2 130/82 mm[Hg] 10/28/2010 Height Weight BMI Blood Pressure 5 ft 6 in 162 lbs 12.8 oz 26.27 kg/m2 130/90 mm[Hg] 10/07/2010 Height Weight BMI Blood Pressure 5 ft 6 in 159 lbs 3.2 oz 25.69 kg/m2 120/60 mm[Hg] 09/10/2010 Height Blood Pressure 5 ft 6 in 130/88 mm[Hg] 08/29/2010 Height Weight BMI Blood Pressure 5 ft 6 in 165 lbs 26.63 kg/m2 126/86 mm[Hg] 08/08/2010 Height Weight BMI Blood Pressure 5 ft 6 in 165 lbs 9.6 oz 26.73 kg/m2 124/80 mm[Hg] 07/22/2010 Height Weight BMI Blood Pressure 5 ft 6 in 166 lbs 12.8 oz 26.92 kg/m2 132/84 mm[Hg] 07/08/2010 Height Weight BMI Blood Pressure 5 ft 6 in 166 lbs 12.8 oz 26.92 kg/m2 140/88 mm[Hg] 06/05/2010 Height Weight BMI Blood Pressure 5 ft 6 in 161 lbs 6.4 oz 26.05 kg/m2 180/90 mm[Hg] 05/22/2010 Height Weight BMI Blood Pressure 5 ft 6 in 162 lbs 26.14 kg/m2 168/92 mm[Hg] 05/10/2010 Height Weight BMI Blood Pressure 5 ft 6 in 159 lbs 6.4 oz 25.73 kg/m2 130/88 mm[Hg] 04/30/2010 Height Weight BMI Blood Pressure 5 ft 6 in 171 lbs 6.4 oz 27.66 kg/m2 128/76 mm[Hg] 03/11/2010 Height Weight BMI 5 ft 6 in 175 lbs 1.6 oz 28.26 kg/m2 01/23/2010 Height Weight BMI 5 ft 6 in 178 lbs 28.73 kg/m2 01/15/2010 Height Weight BMI 5 ft 6 in 178 lbs 28.73 kg/m2 12/12/2009 Height Weight BMI 5 ft 6 in 176 lbs 3.2 oz 28.44 kg/m2 10/24/2009 Height Weight BMI 5 ft 6 in 179 lbs 3.2 oz 28.92 kg/m2
--- OUTSIDE RECORDS SUMMARY | 2021-11-26 20:16 | External Medical Summary ---
:1970 Author Care Team Providers Name Role Phone CONCHITA BAKEREmily Diaz Fifth Grade Teacher [phone] SHASHI BAHENA MD Primary Care Provider [phone] [facility] OTHER [phone] MEGGAN DUNBAR MD Interventional Radiologist [phone] Allergies Code Code System Name Reaction Severity Status Onset 1191 RxNorm Aspirin Respiratory Moderate to Active Distress Severe 2193 RxNorm Ceftriaxone Rash Moderate Active 877345 RxNorm Compazine Other Moderate to Active Severe 3648 RxNorm Droperidol Other Moderate Active 4337 RxNorm Fentanyl Other Moderate Active 6130 RxNorm Ketamine Other Active 943053 RxNorm Pregabalin Other Moderate Active 8704 RxNorm Prochlorperazine Anaphylaxis Severe Active 9230 RxNorm Reglan Other Moderate Active 19792 RxNorm Sumatriptan Anaphylaxis Severe Active 67961 RxNorm Tiagabine Anaphylaxis Severe Active 6915 RxNorm Metoclopramide Anaphylaxis Severe Deactivated Notes: hives to amox and ceftriaxone. Medications Name Status Start Date Stop Date Amitiza 8 mcg capsule Active Not availa ble take 1 capsule by mouth twice a day amlodipine 10 mg tablet Active Not avai lable take 1 tablet by mouth once daily AT dinner amlodipine besylate 10 mg tabs Completed 0 03/08/2019 1 TAB PO Q NIGHT amoxicillin 500 mg tablet Completed 12/25/20182019 Take 500 mg by oral route. amoxicillin 500 mg-potassium clavulanate 125 mg tablet Completed 09/10/2018 09/10/2018 1 tablet by oral route. aripiprazole 2 mg tablet Completed 021 Take 1 tablet every day by oral route as directed for 30 days. aripiprazole 5 mg tablet Active Not rd ilable take 1 tablet by mouth at bedtime aspirin 81 mg tablet,delayed release Completed 09/03/2017 06/10/2018 81 mg by oral route. atorvastatin 20 mg tablet Completed 02/10/20152017 20 mg by oral route. atorvastatin 40 mg tablet Active Not av ailable take 1 tablet by mouth at bedtime atorvastatin calcium 40 mg tabs Completed 03/08/2019 1 TAB PO Q NIGHT ferric citrate 210 mg iron tablet Completed 12/31/2017 09/15/2018 210 mg by oral route. azithromycin 250 mg tabs Completed 018 aztreonam Completed 02/20/2021 03/26/2021 2GM Q24H calcium acetate 667 mg caps Completed 03/25 calcium acetate(phosphate binders) 667 mg capsule Completed 07/24/2017 08/30/2017 667 mg by oral route. calcium carbonate 200 mg calcium (500 mg) chewable tablet Comple rafa 07/02/2016 07/02/2016 200 mg by oral route. carvedilol 12.5 mg tablet Completed 08/17/20172017 12.5 mg by oral route. carvedilol 12.5 mg tabs Completed 04/14/20 18 carvedilol 25 mg tablet Active Not avai lable take 1 tablet by mouth twice a day with meals carvedilol 25 mg tabs Completed 03/08/2019 1 TAB PO BID carvedilol 6.25 mg tablet Completed 01/28/20172016 6.25 mg by oral route. carvedilol 6.25 mg tabs Completed 04/14/20 18 cephalexin 500 mg capsule Completed 11/26/20172017 500 mg by oral route. cholecalciferol (vitamin D3) 50 mcg (2,000 unit) capsule Complet ed 02/10/2015 07/02/2016 2000 units by oral route. ciprofloxacin 500 mg tablet Completed 10/23 take 1 take by mouth once daily ciprofloxacin hcl 500 mg tabs Completed clindamycin HCl 300 mg capsule Completed 0 02/19/2021 clobetasol 0.05 % topical ointment Active Not available APPLY A THIN LAYER TOPICALLY TO AFFECTED AREA ONCE DAILY IF NEE DED clobetasol propionate 0.05 % oint Completed 06/16/2019 APPLY NEEDED clonidine HCl 0.1 mg tablet Completed 12/30/201710/22 0.1 mg by oral route. clopidogrel 75 mg tablet Completed 06/10/2018 019 75 mg by oral route. duloxetine 30 mg capsule,delayed release Active 018 Not available 60 mg by oral route. diphenhydramine 25 mg capsule Active 10/13/2018 No t available 25 mg by oral route. docusate sodium 100 mg capsule Completed 10/12/2018 0 10/12/2019 Take 200 mg by oral route. docusate sodium 100 mg tablet Active No t available Take 2 tablets twice a day by oral route. doxycycline hyclate 100 mg capsule Completed 02/19/2021 take 1 capsule by mouth twice a day doxycycline hyclate 100 mg tablet Active Not available take 1 tablet by mouth twice a day for 10 days duloxetine 60 mg capsule,delayed release Active Not available take 2 capsules by mouth once daily Eliquis 2.5 mg tablet Active Not availa ble take 1 tablet by mouth twice a day erythromycin Completed 11/14/2020 estradiol 1 mg tablet Completed 11/14/2020 take 1 tablet by mouth once daily with meals estradiol 2 mg tablet Completed 02/10/2015 07/24/2015 1 mg by oral route. estradiol 2 mg tabs Completed 03/08/2019 1 TAB PO Q NIGHT furosemide 40 mg tablet Active Not avai lable furosemide 40 mg tabs Completed 03/08/2019 1 TAB BID Humalog KwikPen (U-100) Insulin 100 unit/mL subcutaneous Active Not available inject 10 units subcutaneously before meals hydromorphone 4 mg tablet Active Not av ailable take 1 tablet by mouth every 6 hours if needed for pain maximum d... (REFER TO PRESCRIPTION NOTES). hydromorphone hcl 4 mg tabs Active Not available Take 1 tablet as needed every 3 hours hydroxyzine HCl 10 mg tablet Completed 06/02/2018 10 mg by oral route. insulin detemir (U-100) 100 unit/mL (3 mL) subcutaneous pen Completed 06/10/2018 10/12/2018 .COMPLEX insulin lispro (U-100) 100 unit/mL subcutaneous solution Complet ed 10/12/2018 10/12/2019 Inject 1 unit by sub-q route. iron sucrose 200 mg iron/10 mL intravenous solution Completed 12/31/2017 02/04/2018 200 mg by intraven. route. Lantus Solostar U-100 Insulin 100 unit/mL (3 mL) subcutaneous pe n Active Not available inject 15 units subcutaneously twice a day Lantus U-100 Insulin 100 unit/mL subcutaneous solution Completed 10/12/2018 10/12/2019 Inject 8 units by sub-q route. Lasix 20 mg tablet Completed 02/19/2021 Take 1 tablet twice a day by oral route as directed for 90 days . levofloxacin 250 mg tablet Completed 06/20/201808/03 250 mg by oral route. levofloxacin 500 mg tablet Active Not a vailable Take 1 tablet every day by oral route at bedtime. lidocaine 5 % topical patch Completed 05/20/201809/24 1 each by topical route. lidocaine-prilocaine 2.5 %-2.5 % topical kit Completed 10/12/2018 1 application by topical route. Linzess 145 mcg capsule Active Not avai lable lorazepam 1 mg tablet Completed 06/12/2018 11/04/2018 1 mg by oral route. lorazepam 1 mg tabs Completed 04/14/2018 losartan 50 mg tablet Completed 02/10/2015 08/30/2017 50 mg by oral route. losartan potassium 50 mg tabs Completed methylphenidate 5 mg tablet Active Not available take 1 tablet by mouth twice a day metolazone 10 mg tablet Completed 02/20/20 21 take 1 tablet by mouth if needed 30 MIN UTES BEFORE FUROSEMIDE ... (REFER TO PRESCRIPTION NOTES). metolazone 5 mg tablet Active Not avail able take 2 tablets by mouth (TAKE 30 MINUTE S BEFORE 80 MG DOSE OF FUR... (REFER TO PRESCRIPTION NOTES). minocycline 100 mg capsule Active Not a vailable take 1 capsule by mouth twice a day morphine 15 mg immediate release tablet Completed 05/18/20 17 07/24/2017 15 mg by oral route. morphine sulfate er 15 mg tbcr Completed 0 04/14/2018 Movantik 25 mg tablet Completed 02/19/2021 TAKE 1/2 - 1 TABLET BY MOUTH ONCE DAILY FOR OPIOID INDUCED CONS TIPATION nitrofurantoin macrocrystal 100 mg capsule Completed 06/1909/10/2018 100 mg by oral route. nitrofurantoin monohydrate/macrocrystals 100 mg Completed 04/14/2018 caps nitrofurantoin monohydrate/macrocrystals 100 mg capsule Complete d 09/09/2018 09/10/2018 100 mg by oral route. nortriptyline 10 mg/5 mL oral solution Completed 02/19/2021 Take 2.5 mL every day by oral route at bedtime. ondansetron 4 mg disintegrating tablet Active Not available dissolve 1 tablet ON TONGUE every 4 to 6 hours if needed for nausea OR vomiting ondansetron odt 8 mg tbdp Completed 2019 1 TAB PO PRN oxycodone 5 mg tablet,oral ONLY (not feeding tubes) Completed 03/16/2018 06/10/2018 5 mg by oral route. phenazopyridine 200 mg tablet Completed 06/19/2018 200 mg by oral route. promethazine 25 mg tablet Active 03/04/2019 Not av ailable 25 mg by oral route. promethazine 50 mg tablet Active Not av ailable take 1 tablet by mouth every 6 hours with food renvela 800 mg tabs Completed 12/15/2018 1 TAB WITH MEALS & SNACK scopolamine 1 mg over 3 days transdermal patch Completed 02/19/2021 apply as directed sevelamer carbonate 800 mg tablet Active Not available take 2 tablets by mouth three times a day with food spironolactone 25 mg tabs Completed 2017 sucroferric oxyhydroxide 500 mg chewable tablet Completed 06/01/2018 02/19/2021 Chew 500 mg by oral route. sulfamethoxazole 800 mg-trimethoprim 160 mg tablet Completed 11/14/2020 take 1 tablet by mouth once daily for 5 days (REDUCED DOSE) sulfamethoxazole/trimethoprim ds 800-160 mg Completed 04/14/2018 tabs tizanidine 4 mg tablet Completed 08/17/2017 8 2 mg by oral route. tizanidine hcl 4 mg tabs Completed 018 vancomycin Completed 02/20/2021 03/26/2021 500mg QOD venlafaxine ER 37.5 mg capsule,extended release 24 hr Completed 05/18/2017 06/10/2018 150 mg by oral route. venlafaxine hcl er 150 mg cp24 Completed 1 1 TAB PO Q AM venlafaxine hcl er 75 mg cp24 Completed Problems Name Status Onset Date Source Overweight Active 12/09/2012 Anemia in Chronic Kidney Disease Active 12/09/2012 Peripheral Nerve Disease Active 12/09/2012 Kidney Stone Active 12/09/2012 Vitamin D Deficiency Active 01/18/2013 End Stage Renal Failure on Dialysis Active 06/16/2018 Shoulder Pain Active 06/16/2018 Stenosis of Arteriovenous Dialysis Fistula Active 06/16 Gastroparesis Due to Diabetes Mellitus Active 9 Type 1 Diabetes Mellitus Active 06/16/2019 Pruritic Rash Active 06/16/2019 Acute Osteomyelitis of Phalanx of Toe Active 02/19/2021 Cellulitis of Right Foot Active 02/19/2021 Sepsis Unknown Sepsis Active External Bacteremia Due to Staphylococcus Aureus Active Methicillin Resistant Staphylococcus Aureus Infection Unknown Methicillin Resistant Staphylococcus Aureus Infection Active External Hypothyroidism Active Diabetes Mellitus Active Diabetic Foot Ulcer Active Acidosis Active Hypervolemia Active Hyperkalemia Active Narcotic Drug User Active Chronic Pain Active Neuropathy Active Polyneuropathy Due to Diabetes Mellitus Active Retinal Detachment Active 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 Cataract Active Blindness of One Eye Active Vitreous Hemorrhage Active Benign Essential Hypertension Active Hypertensive Renal Disease Active EKG: Right Bundle Branch Block Active Pneumonia Active Gastroparesis Syndrome Active Gastroenteritis Active Constipation Active Kidney Disease Active [id number] Renal Failure Active Dependence on Hemodialysis Due to End Stage Renal Active Disease Hyperparathyroidism Due to Renal Insufficiency Active Pyelonephritis Active Cystitis Active Urinary Tract Infectious Disease Active Lower Urinary Tract Infectious Disease Active Microscopic Hematuria Active Lump of Cervix Active Pain in Pelvis Active Low Back Pain Active Disorder of Lumbar Disc Active Pain in Calf Active Fatigue Active Asthenia Active Edema of Lower Extremity Active Abnormal Weight Gain Active Palpitations Active Orthopnea Active Apnea Active Dyspnea Active Chest Pain Active Nausea, Vomiting and Diarrhea Active Vomiting Active Abdominal Pain Active Flank Pain Active Proteinuria Active Fracture of Foot Active Mechanical Complication of Dialysis Catheter Active Infection Associated with Vascular Device Active Arteriovenous Fistula Hemorrhage Active History of Calculus of Kidney Active History of Operative Procedure on Shoulder Active Long-term Current Use of Insulin Active At Risk - Finding Active History of Hysterectomy Active Eye / Vision Finding Active Stenosis of Artery Active Anemia in End Stage Renal Disease Active Procedures Date Name Performed by 05/26/2018 Fistulogram Information not avai lable Fistula De-Clot Information not avai lable Foot/toes Surgery Procedure Information not available Back Surgery Information not avai lable Cholecystectomy Information not avai lable Delivery Information not avai lable Appendectomy Information not avai lable Removal of Ovary(s) Information not avai lable Hysterectomy Information not avai lable Shoulder Surgery Information not avai lable Notes: RIGHT 06/16/2018 US, Duplex, Venous, Upper Extremity [facility] c Radiology [address] [place] [id number] (Work Place) 06/16/2018 XR, Shoulder, 2 or More View [facility] log[facility] [address] [place] [id number] (Work Place) 09/21/2018 US, Duplex, Hemodialysis Access [facility] Ra diology [address] [place] [id number] (Work Place) 11/17/2019 US, Duplex, Hemodialysis Access [facility] (Imaging) [address] [place] [address] (Work Place) 12/23/2019 US, Duplex, Hemodialysis Access [facility] (Imaging) [address] [place] [address] (Work Place) 03/27/2020 US, Duplex, Hemodialysis Access [facility] (Imaging) [address] [place] [address] (Work Place) 10/16/2021 US, Duplex, Hemodialysis Access [facility] (Imaging) [address] [place] [address] (Work Place) Results Lab Results Date Name Specimen Result Interpretation Description Value Range Status Address 11/14/2020 HbA1C Hba1C 8.6 [place] seph (Hemoglobin Famil y a1C), Blood Medic ine: [address] 12/29/2019 BMP, Serum No observation Pathologis or Plasma recorded. ts' Regional Lab: [address] [place] [address] 05/02/2019 Lab* No observation recorded. 12/15/2018 CBC W/ Auto Automated Wbc 4.8 4.5-11 Final Pathologis Diff blood K/mcL .0 ts' basophil K/mcL Regional count Lab: 415 (number/volum , e) [place] Automated Low Rbc 3.90 4.00-5 Final Patholo gis blood M/mcL .20 ts' basophil M/mcL Regional count Lab: [address] ([address], e) [place] Automated Low Hemoglobin 11.6 12.0-1 Final Pa thologis blood g/dL 5.0 ts' basophil g/dL Regional count Lab: [address] ([address], e) [place] Automated Low Hematocrit 35.1 % 36.0-4 Final Pa thologis blood 8.0 % ts' basophil Regional count Lab: [address] (number/[address], e) [place] Automated Mean Cell 90.0 fL 80.0-1 Final Pa thologis blood Volume 00.0 ts' basophil fL Regional count Lab: [address] ([address], e) [place] Automated Mean 29.8 pg 26.0-3 Final Pathol ogis blood Corpuscular 4.0 pg ts' basophil Hemoglobin Alissa onal count Lab: 415 (number/vol[address], e) [place] Automated Mean 33.1 31.0-3 Final Patholo gis blood Corpuscular g/dL 6.0 ts' basophil HGB Conc g/dL Region al count Lab: 415 (number/vol[address], e) [place] Automated Red Cell 13.3 % 11.5-1 Final Path ologis blood Distribution 4.5 % ts' basophil Width Regional count Lab: [address] ([address], e) [place] Automated Platelet 362 140-44 Final Path ologis blood Count K/mcL 0 ts' basophil K/mcL Regional count Lab: 415 (number/[address], e) [place] Automated Mean Platelet 8.6 fL 7.4-10 Final Pathologis blood Volume .4 fL ts' basophil Regional count Lab: 415 (number/[address], e) [place] Automated Gran % 48.2 % 38.0-7 Final Pathol ogis blood 8.0 % ts' basophil Regional count Lab: 415 (number/vol[address], e) [place] Automated Lymph % 37.4 % 15.5-4 Final Patho logis blood 9.0 % ts' basophil Regional count Lab: 415 (number/vol[address], e) [place] Automated Trinity % 8.7 % 1.0-12 Final Pathol ogis blood .0 % ts' basophil Regional count Lab: 415 (number/vol[address], e) [place] Automated Eos % 5.3 % 0.0-7. Final Patholo gis blood 0 % ts' basophil Regional count Lab: 415 (number/vol[address], e) [place] Automated Baso % 0.4 % 0.0-2. Final Pathol ogis blood 0 % ts' basophil Regional count Lab: 415 (number/vol[address], e) [place] Automated Gran # 2.3 1.8-8. Final Pathol ogis blood K/mcL 0 ts' basophil K/mcL Regional count Lab: 415 (number/[address], e) [place] Automated Lymph # 1.8 1.5-4. Final Patho logis blood K/mcL 8 ts' basophil K/mcL Regional count Lab: 415 (number/vol[address], e) [place] Automated Trinity # 0.4 0.1-0. Final Pathol ogis blood K/mcL 9 ts' basophil K/mcL Regional count Lab: 415 (number/vol[address], e) [place] Automated Eos # 0.3 0.0-0. Final Patholo gis blood K/mcL 7 ts' basophil K/mcL Regional count Lab: 415 (number/vol[address], e) [place] Automated Baso # 0.0 0.0-0. Final Pathol ogis blood K/mcL 3 ts' basophil K/mcL Regional count Lab: 415 (number/volum [address], e) [place] 12/15/2018 Hemoglobin Whole blood High Hemoglobin 8.7 % 4.0-6. Final Pathologis a1C + estimated a1C HGB 0 % ts' Average average HGB Regional Glucose, QN, glucose Lab : [address], by estimation [place] fromglycated hemoglobin (mass/volume) Whole blood Estimated 203 Final P athologis estimated Average mg/dL ts' average Glucose Regional glucose Lab: [address], by estimation [place] fromglycated hemoglobin (mass/volume) Whole blood Results Pat hologis estimated ts' average Regional glucose Lab: [address], by estimation [place] fromglycated hemoglobin (mass/volume) 12/15/2018 Lipid Panel, High Cholesterol 329 <200 F inal Pathologis Blood mg/dL mg/dL ts' Regional Lab: [address], [place] High Triglycerides 242 <150 Final Pa thologis mg/dL mg/dL ts' Regional Lab: [address], [place] HDL 90 >40 Final Pathologis Cholesterol mg/dL mg/dL ts' Regional Lab: [address], [place] High LDL,calculate 191 see Final Pa thologis d mg/dL chart ts' mg/dL Regional Lab: [address] [place] [address] High non-HDL 239 LDL Final Patholog is Cholesterol target +30 Regional Lab: [address] [place] [address] 12/15/2018 TSH, Serum Serum or High TSH with 5.99 0.27-5 Vijaya l Pathologis or Plasma plasma Reflex FT4 uIU/mL .01 ts thyroid uIU/mL Regional stimulating Lab: 415 hormone (TSH) 6th , measurement Osman ton (units/volume ) 12/15/2018 Urinalysis, Urine Color yellow Fi nal Pathologis Microscopic ts' Regional Lab: 415 [facility], [place] Urine hazy Final Pathologis Appearance ts' Regional Lab: [address] [facility], [place] Specific 1.014 1.000- Final Patholo gis [place],urine 1.035 ts Regional Lab: [address] [place] [address] pH,urine 6.0 5.0-9. Final Patholo gis 0 ts Regional Lab: [address] [place] [address] High Urine Protein 100 neg Final Pa thologis mg/dL mg/dL ts' Regional Lab: [address] [place] [address] High Urine Glucose 50 neg Final Pa thologis (UA) mg/dL mg/dL ts' Regional Lab: [address] [place] [address] Urine Ketone neg neg Final Pat hologis mg/dL mg/dL ts Regional Lab: [address] [place] [address] Urine neg neg Final Pathologis Urobilinogen mg/dL mg/dL ts Regional Lab: [address] [place] [address] Urine neg neg Final Pathologis Bilirubin mg/dL mg/dL ts Regional Lab: [address] [place] [address] Urine Blood neg <0.03 Final Path ologis mg/dL mg/dL ts' Regional Lab: [address] [place] [address] Urine Nitrite neg neg Final Pa thologis ts Regional Lab: [address] [place] [address] High Urine 500 /uL neg Final Pathologi s Leukocyte /uL ts Esterase Regional Lab: [address] [place] [address] Urine RBC 1 /hpf 0-1 Final Pathol ogis /hpf ts' Regional Lab: [address] [place] [address] High Urine WBC 38 /hpf 0-4 Final Patho logis /hpf ts' Regional Lab: [address] [place] [address] Urine 4 /hpf 0-4 Final Pathologis Squamous /hpf ts' Epithelial Region al Cell Lab: [address] [place] [address] Urine 0 /hpf 0 /hpf Final Pathologis Bacteria ts' Regional Lab: [address] [place] [address] High Urine Hyaline 10 /lpf 0-2 Final P athologis Cast /lpf ts' Regional Lab: [address] [place] [address] Urine Mucus few 0 /hpf Final Path ologis /hpf ts' Regional Lab: [address] [place] [address] Add Culture? yes Final Pat hologis [facility] Regional Lab: [address] [place] [address] 12/15/2018 T4, Free, Free T4 0.89 0.7-1. Final P athologis Serum Reflex Test NG/dL 7 ts' NG/dL Regional Lab: [address] [place] [address] 12/15/2018 Microalbumin 24 hour urine Urine 85.0 Final Pathologis , Urine microalbumin/ Creatinine mg/dL [facility] creatinine Region al mass ratio Lab: [address] [place] [address] 24 hour urine Urine 193.2 Final Pat hologis microalbumin/ Microalbumin mg/dL [facility] creatinine Region al mass ratio Lab: [address] [place] [address] 24 hour urine High Microalbumin/ 2272.9 0.5-30 Fi nal Pathologis microalbumin/ creatinine mg/gm .0 ts' creatinine Ratio mg/gm Region al mass ratio Lab: [address] [place] [address] 12/15/2018 Culture, URINE Results Pa thologis Urine ' Regional Lab: [address] [place] [address] Past Encounters 03/13/2021 Acute Osteomyelitis of Phalanx of Toe; D ependence on Hemodialysis Due to End Stage Renal Disease Gonzalo Rodriguez MD: [address] [place] [address], [place] [phone], Ph. 02/26/2021 Acute Osteomyelitis of Phalanx of Toe; D iabetic Foot Ulcer; Dependence on Hemodialysis Due to End Stage Renal Disease Gonzalo Rodriguez MD: [address] [place] [address], [place] [phone], Ph. 02/19/2021 Acute Osteomyelitis of Phalanx of Toe; C ellulitis of Right Foot; Infection by Methicillin Sensitive Staphylococcus Aureus; Dependence on Hemodialysis Due to End Stage Renal Disease; Diabetic Foot Ulcer; Osteomyelitis of Ankle AND/OR Foot Gonzalo Rodriguez MD: [address] [place] [address], [place] [phone], Ph. 11/28/2020 Major Depressive Disorder Shashi Bahena MD: [address] [facility] [address], [place] [phone], Ph. 11/14/2020 Venous Thrombosis; Type 1 Diabetes Melli tus; Diabetic Foot Ulcer; End Stage Renal Failure on Dialysis; Major Depressive Disorder; Hormone Replacement Therapy; Abnormal Vasomotor Function Shashi Bahena MD: [address] [facility] [address], [place] [phone], Ph. Social History Tobacco Smoking Status Never Smoker Vaccine List Vaccine Type COVID-19 (SARS-COV-2) vaccine, unspecifi ed 09/28/2020 10/19/2020 influenza, injectable, quadrivalent 04/24/2018 06/13/2019 pneumococcal polysaccharide PPV23 08/24/2012 Notes: Some vaccines listed in Documen ts: #[id number], #[id number], #[id number] could not be added to this patient's chart. Please re view these documents and add these vaccines to the patient's chart manually as santino cooper Plan of Care Reminders Provider Appointments None recorded. Lab None recorded. Referral None recorded. Procedures None recorded. Surgeries None recorded. Imaging None recorded. Vitals 03/13/2021 03:00PM Established Patient 30 Height Blood Pressure 5 ft 7 in 158/78 mm[Hg] 02/26/2021 01:00PM Established Patient 30 Height Blood Pressure 5 ft 7 in 126/76 mm[Hg] 02/19/2021 09:15AM New Patient 60 Height Blood Pressure 5 ft 7 in 142/78 mm[Hg] 11/14/2020 01:15PM Hospital Follow Up Weight Blood Pressure 205.4 lbs 152/78 mm[Hg] 10/12/2019 02:15PM Established Patient 30 Height Weight BMI Blood Pressure 5 ft 7 in 194 lbs 30.4 kg/m2 142/68 mm[Hg] 06/16/2019 03:15PM Established Patient 30 Height Weight BMI Blood Pressure 5 ft 7 in 185.6 lbs 29.1 kg/m2 146/72 mm[Hg] 04/19/2019 04:00PM Established Patient 30 Height Weight BMI Blood Pressure 5 ft 7 in 184.4 lbs 28.9 kg/m2 136/72 mm[Hg] 03/08/2019 04:00PM Established Patient 30 Height Weight BMI Blood Pressure 5 ft 7 in 186 lbs 29.1 kg/m2 138/72 mm[Hg] 12/15/2018 11:00AM New Patient 60 Height Weight BMI 5 ft 7 in 189 lbs 29.6 kg/m2 06/16/2018 03:00PM Any 30 Height Weight BMI Blood Pressure 5 ft 7 in 183 lbs 28.7 kg/m2 157/79 mm[Hg] 04/14/2018 Height Weight BMI 5 ft 7 in 169 lbs 26.5 kg/m2
[2021-11-26] MEDS ORDERED: ONDANSETRON 4 MG/2 ML VIAL IV PRN (20:20)
[2021-11-26] MEDS ORDERED: ACETAMINOPHEN 325 MG TABLET PO PRN ×2 (20:25→21:18)
[2021-11-26] MEDS ORDERED: HYDROcodone/APAP 5/325MG TABLET PO PRN (20:25)
[2021-11-26] MEDS ORDERED: HEPARIN 5,000 UNIT/ML VIAL SQ SCH (21:00)
[2021-11-26] MEDS ORDERED: DEXTROSE 31 GM ORAL.SUSP PO PRN (21:18)
[2021-11-26] MEDS ORDERED: NALOXONE HCL 0.4 MG/ML VIAL IV PRN (21:18)
[2021-11-26] MEDS ORDERED: DEXTROSE 50% 50 ML VIAL IV PRN (21:18)
--- NOTE | 2021-11-26 21:35 | Internal Med History&Physical ---
HPI History of Present Illness Patient information: Note initiated : 11/26/21 at 9:21 pm Service Date, if different from initiated Date: [] Patient: Paige Lemos 51 y/o F admitted on 11/26/21 for Osteomyelitis. Chief Complaint: [] Chief complaint: Foot infection History of present illness: Ms. Lemos is a 51 year old female with a history of hypertension, insulin- dependent diabetes mellitus, ESRD, superior mesenteric artery syndrome, sleep apnea, obesity, left internal jugular vein thrombosis currently being treated with apixaban, chronic diabetic right foot ulcer who presented to the [facility] emergency department for further evaluation of right foot pain. In the emergency department, the patient had a right foot MRI without contrast that showed findings consistent with osteomyelitis involving the second through fourth metatarsals as well as several tarsal bones. The patient was transferred to [facility] due to lack of acute dialysis coverage at [facility]. Prior to transfer, the patient reported that she received 1 dose of metronidazole IV. Upon arrival to [facility], the patient stable. She has edema around her right foot and a chronic appearing ulcer at the anterior plantar portion of her right foot. Additionally, the patient has edema up to her right knee. The patient denies fevers and chills, her main complaint is right foot pain and nausea. We discussed the plan that would include surgical bone biopsies followed by initiation of broad-spectrum antibiotics then de-escalation based on culture results. We also discussed CODE STATUS, the patient wishes to be full code. Review of systems Constitutional: no fever, fatigue, or weight loss Eyes: no vision changes or pain Cardiovascular: no chest pain, no palpitations Respiratory: no cough or dyspnea Gastrointestinal: Positive for nausea, chronic abdominal pain Genitourinary: no dysuria or difficulty voiding Musculoskeletal: Positive for right foot swelling and pain Integumentary: Positive for chronic right foot wound Neurological: no focal weakness or numbness Psychiatric: no anxiety or depression Physical exam Head: Atraumatic, normal inspection. Eyes: normal appearance, no scleral icterus. Neck: full ROM Respiratory: no respiratory distress. Cardiovascular: normal rate and rhythm, S1, S2. GI/Abdominal: soft, nontender, no guarding. Extremities: Left upper extremity hemodialysis AV fistula w/ bruit present, right foot edema extending to right knee, chronic appearing ulcer on plantar aspect of the right foot. Neurological: CN II-XII intact, intact motor, intact sensation. Psychiatric: normal mood. Skin: Warmth and redness of right lower extremity PFSH PFSH All Active Problems (Updated 11/21/21 @ 08:36 by Sheri Gomes) Apnea (Chronic) Blindness of one eye (Chronic) Cataract (Chronic) Chronic pain (Chronic) Diabetes mellitus with renal manifestation (Chronic) DM (diabetes mellitus), type 1 with neurological complications (Chronic) Hypothyroidism (Chronic) History of kidney stones (Chronic) getter filler current use of insulin (Chronic) Lumbar disc disease (Chronic) Microhematuria (Chronic) Nephrolithiasis (Chronic 12/09/12) Overweight (Chronic 12/09/12) Peripheral neuropathy (Chronic 12/09/12) Polyneuropathy in diabetes (Chronic) Proteinuria (Chronic) Diabetic retinopathy associated with diabetes mellitus due to underlying condition (Chronic) SOB (shortness of breath) (Chronic) MRSA (methicillin resistant Staphylococcus aureus) (Chronic) Vitamin D deficiency (Chronic 01/18/13) Hypertensive renal disease (Chronic) Secondary hyperparathyroidism of renal origin (Chronic) Low back pain (Chronic) Hypertension, essential, benign (Chronic) Right bundle branch block (RBBB) determined by electrocardiography (Chronic) Gastroparesis (Chronic) Chronic narcotic use (Chronic) At risk for allergic reaction to medication (Chronic) ESRD on hemodialysis (Chronic) Anemia due to end stage renal disease (Chronic ~12/09/12) Cervical mass (Chronic) Celiac artery stenosis (Chronic) Abdominal pain (Chronic) UTI (urinary tract infection) (Chronic) Hyperlipidemia (Chronic) RUQ abdominal pain (Chronic) Arterial obstructive disease (Chronic) Macular degeneration (Chronic) History of stroke (Chronic) Anxiety disorder (Chronic) Depression (Chronic) Sleep apnea (Chronic) Muscle pain (Chronic) Muscle weakness (Chronic) Kidney cyst, acquired (Chronic) Hematuria (Chronic) SMAS (superior mesenteric artery syndrome) (Chronic) Renal disease (Chronic) Hypoglycemia unawareness associated with type 1 diabetes mellitus (Acute) Diabetic infection of right foot (Acute) V-tach (Acute) Type 1 diabetes mellitus with end-stage renal disease (Acute) Median arcuate ligament syndrome (Acute) Internal jugular (IJ) vein thromboembolism, acute (Acute) Foot ulcer (Acute) ESRD (end stage renal disease) on dialysis (Acute) Complication of arteriovenous dialysis fistula (Acute) Medical History (Updated 11/21/21 @ 08:36 by Sheri Gomes) Abdominal pain Abdominal pain Abnormal weight gain Acidosis Anemia due to end stage renal disease (~12/09/12) Anxiety disorder Apnea Arterial obstructive disease At risk for allergic reaction to medication dystonic reactions to Reglan (metoclopramide), Compazine (prochlorperazine) and Inapsine (droperidol) Bleeding pseudoaneurysm of left brachiocephalic AV fistula Blindness of one eye left Calf pain Cataract Celiac artery stenosis Cervical mass Chest pain Chest pain Chronic narcotic use for neuropathy; Dr. Shyam Harper, [facility] Chronic pain Complications, dialysis, catheter, mechanical Constipation Cystitis Depression Diabetes mellitus with renal manifestation Diabetic retinopathy associated with diabetes mellitus due to underlying condition DM (diabetes mellitus), type 1 with neurological complications Dyspnea Edema of lower extremity pitted, severity estimated LT: 1+ and RT: 2+ ESRD on hemodialysis Flank pain Fluid overload Foot ulcer Fracture, foot Gastroparesis History of kidney stones History of stroke X 2 Hyperkalemia Hyperlipidemia Hypertension, essential, benign Hypertensive renal disease BP near goal, good BP readings at home ct current meds follow low sodium diet will follow and optimize if elevated next visit Hypothyroidism no longer on meds 10-12-2018 Infection of hemodialysis tunneled catheter [facility] current use of insulin Low back pain hx of laser disk Lumbar disc disease Macular degeneration Microhematuria MRSA (methicillin resistant Staphylococcus aureus) abscess 2007 Muscle pain Muscle weakness Nephrolithiasis (12/09/12) Nephropathy Orthopnea Overweight (12/09/12) Palpitation Pelvic pain Peripheral neuropathy (12/09/12) Pneumonia Polyneuropathy in diabetes Proteinuria Pyelonephritis Renal disease END STAGE Retinal detachment Right bundle branch block (RBBB) determined by electrocardiography RUQ abdominal pain Secondary hyperparathyroidism of renal origin PTH improved from 133 to 65 phos is normal calcium is at upper limit of normal ct renvela and cholecalciferol will monitor and optimize meds if needed Sepsis Urosepsis was noted in chart note. Shoulder pain Sleep apnea SOB (shortness of breath) Staphylococcus aureus bacteremia UTI (lower urinary tract infection) UTI (urinary tract infection) UTI (urinary tract infection) UTI (urinary tract infection) Vision changes Vitamin D deficiency (01/18/13) Vitreous hemorrhage Vomiting Weakness Weakness of right lower extremity Surgical History History of appendectomy History of arthroscopy of right shoulder History of section History of cholecystectomy History of foot surgery History of hysterectomy with oophorectomy History of shoulder surgery Right shoulder. History of surgery Celiac Plexus Block Lt. L1 w/sed 10/27/2018 S/P arteriovenous (AV) fistula creation (02/10/18) Family History Father Cerebral infarction Essential hypertension Mother Type 1 diabetes mellitus Social History (Updated 11/05/21 @ 13:02 by Ale Bond CMA) household members: significant other lives independently: Yes marital status: other details: engaged occupational status: disabled physical activity: none smoking status: Never smoker alcohol intake frequency: former alcohol drinker substance use type: does not use seatbelt use: always MEDS/ALLERGIES Home Medications and Allergies Home Medications Medication Instructions Recorded Confirmed Type docusate sodium 100 mg capsule 100 mg PO DAILYP PRN 12/05/19 11/20/21 History (Colace) bisacodyl 5 mg tablet,delayed 10 mg PO QDAY tab 03/20/20 11/20/21 History release (Dulcolax (bisacodyl)) clobetasol 0.05 % scalp solution 1 applic TOPICAL QDAY 03/20/20 11/20/21 History diphenhydramine HCl 25 mg capsule 25 - 75 mg PO Q6H PRN cap 03/20/20 11/20/21 History (Benadryl) promethazine 25 mg tablet 25 - 50 mg PO Q6HP PRN 03/20/20 11/20/21 History insulin lispro 100 unit/mL 10 unit SUBCUT .tid ac PRN ml 11/09/20 11/20/21 History subcutaneous solution duloxetine 60 mg capsule,delayed 60 mg PO QHS 06/26/21 11/20/21 History release furosemide 40 mg tablet 40 mg PO DAILY 06/26/21 11/20/21 History methylphenidate HCl 5 mg tablet 5 mg PO HS 06/26/21 11/20/21 History omeprazole 20 mg capsule,delayed 20 mg PO QHS 06/26/21 11/20/21 History release ondansetron HCl 8 mg tablet 8 mg PO Q8H PRN 06/26/21 11/20/21 History sevelamer carbonate 800 mg tablet 800 mg PO TIDCC 06/26/21 11/20/21 History insulin glargine 100 unit/mL (3 See Rx Instructions .ROUTE 08/08/21 11/20/21 Rx mL) subcutaneous pen (Lantus .COMPLEX #15 ml Solostar U-100 Insulin) apixaban 2.5 mg tablet 2.5 mg PO BID #60 tab 10/29/21 11/20/21 Rx naloxone 4 mg/actuation nasal 4 mg INTRANASAL Q2M PRN #1 ea 11/18/21 11/18/21 Rx spray (Narcan) amlodipine 10 mg tablet 10 mg PO QPM #90 tab 11/20/21 11/20/21 Rx carvedilol 25 mg tablet 25 mg PO BID #180 tab 11/20/21 11/20/21 Rx hydromorphone 4 mg tablet 4 mg PO Q6H PRN #240 tab MDD 8 11/20/21 11/20/21 Rx aripiprazole 5 mg tablet (Abilify) 5 mg PO QHS #30 tab 11/22/21 Rx Allergies Allergy/AdvReac Type Severity Reaction Status Date / Time aspirin Allergy Severe Anaphylaxis Verified 11/20/21 12:02 droperidol [From INAPSINE] Allergy Severe Seizure Verified 11/20/21 12:02 gabapentin Allergy Severe Anaphylaxis Verified 11/20/21 12:02 honey Allergy Severe Anaphylaxis Verified 11/20/21 12:02 metoclopramide Allergy Severe Anaphylaxis Verified 11/20/21 12:02 prochlorperazine Allergy Severe Anaphylaxis Verified 11/20/21 12:02 sumatriptan Allergy Severe Anaphylaxis Verified 11/20/21 12:02 tiagabine [From Gabitril] Allergy Severe Anaphylaxis Verified 11/20/21 12:02 adhesive Allergy Intermediate Blister Verified 11/20/21 12:02 Amoxicillin Allergy Intermediate Hives Verified 11/20/21 12:02 ceftriaxone [From Rocephin] Allergy Intermediate Hives Verified 11/20/21 12:02 morphine Allergy Intermediate Blister Verified 11/20/21 12:02 Penicillins Allergy Intermediate Hives Verified 11/20/21 12:02 topiramate [From Topamax] Allergy Mild Rash Verified 11/20/21 12:02 ketamine AdvReac Intermediate Anxiety Verified 11/20/21 12:02 hydroxyzine AdvReac Mild Confusion Verified 11/20/21 12:02 A/P Narrative A/P Narrative: Assessment: 51 year old female with a history of hypertension, insulin-dependent diabetes mellitus, ESRD, superior mesenteric artery syndrome, obesity, left internal jugular vein thrombosis currently being treated with apixaban, chronic diabetic right foot ulcer admitted for osteomyelitis of right second through fourth metatarsals as well as several tarsal bones. The patient says she has an allergy to ceftriaxone but not cefazolin. She says she has tolerated Zosyn in the past. #Osteomyelitis of right second through fourth metatarsals and several tarsal bones #Chronic right diabetic foot ulcer #Allergy to ceftriaxone, has tolerated Zosyn in the past #Insulin-dependent diabetes mellitus complicated by retinopathy and ESRD #ESRD on home hemodialysis #Left internal jugular vein thrombosis on apixaban #Hypertension #Chronic pain on opioids #Superior mesenteric artery syndrome #Depression and anxiety #Possible sleep apnea Plan -Podiatry consult for surgical cultures, preferably bone cultures. -Start broad-spectrum antibiotics after cultures obtained, likely with vancomycin and Zosyn. -Nephrology consulted for inpatient hemodialysis. -Lantus 10 units at bedtime and correction Humalog SSImedium. -Eliquis 2.5 mg twice daily. -Home medication reconciliation, resume important meds. -Renal consistent carbohydrate diet, n.p.o. at midnight. -DVT prophylaxis: On Eliquis -CODE STATUS: Full -Disposition: Anticipate home on IV antibiotics for at least 6 weeks, potentially followed by suppressive oral antibiotic therapy. Consider referral to infectious disease for osteomyelitis outpatient management. Time Spent With Patient Time: Total time spent is greater than 50% in coordination of care (as documented) at patient's floor/unit and/or counseling patient:
[2021-11-26 21:57] LABS: Basophils # (Auto) 0.01 K/mcL (0.00-0.30); Basophils % (Auto) 0.1 % (0.0-2.0); Eosinophils % (Auto) 2.4 % (0.0-7.0); Hematocrit 25.4 % (34.1-44.9); Hemoglobin 8.4 g/dL (11.2-15.7); Lymphocytes # (Auto) 1.38 K/mcL (1.50-4.80); Lymphocytes % (Auto) 16.7 % (15.5-49.0); Mean Cell Volume 89.4 fL (80.0-100.0); Mean Corpuscular HGB Conc 33.1 g/dL (31.0-36.0); Mean Platelet Volume 9.6 fL (7.4-10.4); Monocytes # (Auto) 0.78 K/mcL (0.10-0.90); Monocytes % (Auto) 9.5 % (1.0-12.0); Neutrophils % (Auto) 71.3 % (38.0-78.0); Platelet Count 339 K/mcL (140-440); RBC 2.84 M/mcL (3.59-5.38); Red Cell Distribution Width 14.5 % (11.5-14.5); WBC 8.2 K/mcL (4.5-11.0)
[2021-11-26 22:21] LABS: Estimated Average Glucose(eAG) 255 mg/dL; Hemoglobin A1C 10.5 % Hgb (4.0-6.0)
[2021-11-26 22:39] LABS: ALT/SGPT 6 U/L (<40); AST/SGOT 9 U/L (<32); Albumin 3.8 gm/dL (3.2-5.2); Albumin/Globulin Ratio 1.1 (1.0-2.3); Alkaline Phosphatase 55 U/L (39-117); Bilirubin,Direct < 0.2 mg/dL (0-0.3); Bilirubin,Total 0.2 mg/dL (0.1-1.0); Blood Urea Nitrogen 87 mg/dL (6-20); Calcium 9.2 mg/dL (8.6-10.4); Carbon Dioxide 22 mmol/L (22-30); Chloride 86 mmol/L (96-108); Globulin 3.5 gm/dL (2.2-3.7); Glomerular Filtration Rate 8; Glucose 206 mg/dL (70-105); Lactate Dehydrogenase 174 U/L (135-225); Phosphorous 5.6 mg/dL (2.5-4.5); Triglycerides 186 mg/dL (<150); Uric Acid 6.8 mg/dL (2.5-8.0)
[2021-11-27] MEDS: DOCUSATE SODIUM 100 MG CAPSULE PO SCH ×3 (00:08→21:13)
[2021-11-27] MEDS: SENNOSIDES 1 TABLET PO SCH ×2 (00:09→21:14)
[2021-11-27] MEDS: 0.9 % SODIUM CHLORIDE 10 ML SYRINGE IV SCH ×5 (00:09→21:16)
[2021-11-27] MEDS: HYDROmorphone 2 MG TABLET PO PRN ×3 (00:09→19:59)
[2021-11-27] MEDS: HYDROmorphone 0.5 MG/0.5 ML SYRINGE IV PRN ×7 (00:11→23:44)
[2021-11-27] MEDS: INSULIN LISPRO 1 UNIT/0.01 ML UNIT SQ SCH ×4 (07:08→21:15)
--- NOTE | 2021-11-27 08:27 | Nephrology Consult Note ---
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 She has been batteling a right foot infection with local podiatric care and ABx. Recently, she underwent imaging of her left upper arm AVF and an incidental left IJ thrombus was noted. As there was no central venous catheter in place at the time (though an IF venous catheter had been placed iby anesthesis within the past few months for difficult venous access, the decision was mad to anticoagulate for 3 months with ESRD-dose adjusted apixaban and reassess. She underwent MRI imaging of her right foot yesterday and marrow signal of multiple metatarsals and other proximal foot bones were abnormal and suggestive of osteomyelitis. Plan is to admit, obtain bone/tissue samples for culture- guided ABx. In the past only coag neg staph and MSSA have been obtained from cultures. At one time ID (Dr Batista had made recommentations for a similar process). Last yr she had a right foot ulcer that eventually required amp right 2hd toe. Will provide ESRD management with MWF HD, anemia management and Ca/PO4/PTH treatment. Dialysis orders were entered in the chart for today last evening upon call from the hospital medicine service. MRI right foot 11/2021 Vital Signs Temp Pulse Resp BP Pulse Ox 11/27/21 07:57 36.4 C 77 12 144/64 96 11/27/21 04:27 36.2 C 73 12 144/75 93 11/26/21 23:26 36.8 C 69 12 147/79 95 11/26/21 20:24 36.8 C 79 12 170/83 96 11/26/21 20:10 36.8 C 69 12 147/79 95 Intake and Output 11/26/21 11/27/21 11/27/21 21:59 05:59 13:59 Intake Total 200 Output Total 100 300 Balance 100 -300 Intake: Oral 200 Output: Void Amount 100 300 Other: Urine Appearance Clear Urine Color Bright Yellow # Voids 1 Weight 99.79 kg Current Medications Acetaminophen (Acetaminophen 325 Mg Tablet) 650 mg PO Q6HP PRN; Protocol PRN Reason: Per Pain Protocol/Fever > 101 Apixaban (Apixaban 5 Mg Tablet) 2.5 mg PO BID [facility] Dextrose (Dextrose 50% 50 Ml Vial) 0 ml IV UD PRN PRN Reason: Per Sliding Scale Diagnostic Test (Pha) (Accu-Chek 1 Each Strip) 1 each FS [facility] Last Admin: 11/27/21 07:04 Dose: 1 each Documented by: Docusate Sodium (Docusate Sodium 100 Mg Capsule) 100 mg PO BID [facility] Last Admin: 11/27/21 08:36 Dose: Not Given Documented by: Glucose (Dextrose 31 Gm Oral.Susp) 15 gm PO PRN PRN PRN Reason: Hypoglycemia Hydromorphone HCl (Hydromorphone 2 Mg Tablet) 4 mg PO Q4HP PRN; Protocol PRN Reason: Per Pain Protocol Last Admin: 11/27/21 07:48 Dose: 4 mg Documented by: Hydromorphone HCl (Hydromorphone 0.5 Mg/0.5 Ml Syringe) 0.5 mg IV Q2HP PRN; Protocol PRN Reason: Per Pain Protocol Last Admin: 11/27/21 07:03 Dose: 0.5 mg Documented by: Insulin Glargine (Insulin Glargine, Human 1 Unit/0.01 Ml) 10 unit SQ [facility] Insulin Human Lispro (Insulin Lispro 1 Unit/0.01 Ml Unit) 0 unit SQ [facility]; Protocol Last Admin: 11/27/21 07:08 Dose: Not Given Documented by: Naloxone HCl (Naloxone Hcl 0.4 Mg/Ml Vial) 0.4 mg IV Q10M PRN PRN Reason: Opiate Reversal Ondansetron HCl (Ondansetron 4 Mg/2 Ml Vial) 4 mg IV Q6HP PRN PRN Reason: Nausea And Vomiting Senna (Sennosides 1 Tablet) 2 tab PO [facility] Last Admin: 11/27/21 00:09 Dose: 2 tab Documented by: Sodium Chloride (0.9 % Sodium Chloride 10 Ml Syringe) 10 ml IV Q8 [facility] Last Admin: 11/27/21 04:54 Dose: 10 ml Documented by: cc:: CC: Adarsh Rodrigues MD Review of Systems All systems: reviewed and no additional remarkable complaints except as stated Constitutional Constitutional: Present weakness EENT Eyes: Present other (Blind OS with opacification of the lens) Cardiovascular Cardiovascular: Present edema Respiratory Respiratory: Present as per HPI Gastrointestinal Gastrointestinal: Present cramping, nausea and other (Carries a diagnosis of mesenteric ischemia due to vascular entrapment by muscle band) Genitourinary Genitourinary: Present other (Status post hysterectomy) Menstruation: amenorrhea Musculoskeletal Musculoskeletal: Present muscle weakness and numbness Integumentary Integumentary: Present change in hair and wounds Additional comments: Right foot ulcer leading to right great toe ray amputation Neurological Neurological: Present numbness, paresthesias and weakness Psychiatric Psychiatric: Present anxiety Endocrine Endocrine: Present fatigue Hematologic/Lymphatic Hematologic/Lymphatic: Present easy bleeding and easy bruising PFSH PFSH All Active Problems (Updated 11/27/21 @ 14:55 by Reji Barriag MD) Complication of arteriovenous dialysis fistula (Acute) Foot ulcer (Acute) ESRD (end stage renal disease) on dialysis (Acute) Internal jugular (IJ) vein thromboembolism, acute (Acute) Median arcuate ligament syndrome (Acute) Type 1 diabetes mellitus with end-stage renal disease (Acute) Anemia due to end stage renal disease (Chronic ~12/09/12) DM (diabetes mellitus), type 1 with neurological complications (Chronic) Diabetic infection of right foot (Acute) SMAS (superior mesenteric artery syndrome) (Chronic) Secondary hyperparathyroidism of renal origin (Chronic) V-tach (Acute) Hypoglycemia unawareness associated with type 1 diabetes mellitus (Acute) Apnea (Chronic) Blindness of one eye (Chronic) Cataract (Chronic) Chronic pain (Chronic) Diabetes mellitus with renal manifestation (Chronic) Hypothyroidism (Chronic) History of kidney stones (Chronic) retirement current use of insulin (Chronic) Lumbar disc disease (Chronic) Microhematuria (Chronic) Nephrolithiasis (Chronic 12/09/12) Overweight (Chronic 12/09/12) Peripheral neuropathy (Chronic 12/09/12) Polyneuropathy in diabetes (Chronic) Proteinuria (Chronic) Diabetic retinopathy associated with diabetes mellitus due to underlying condition (Chronic) SOB (shortness of breath) (Chronic) MRSA (methicillin resistant Staphylococcus aureus) (Chronic) Vitamin D deficiency (Chronic 01/18/13) Hypertensive renal disease (Chronic) Low back pain (Chronic) Hypertension, essential, benign (Chronic) Right bundle branch block (RBBB) determined by electrocardiography (Chronic) Gastroparesis (Chronic) Chronic narcotic use (Chronic) At risk for allergic reaction to medication (Chronic) ESRD on hemodialysis (Chronic) Cervical mass (Chronic) Celiac artery stenosis (Chronic) Abdominal pain (Chronic) UTI (urinary tract infection) (Chronic) Hyperlipidemia (Chronic) RUQ abdominal pain (Chronic) Arterial obstructive disease (Chronic) Macular degeneration (Chronic) History of stroke (Chronic) Anxiety disorder (Chronic) Depression (Chronic) Sleep apnea (Chronic) Muscle pain (Chronic) Muscle weakness (Chronic) Kidney cyst, acquired (Chronic) Hematuria (Chronic) Renal disease (Chronic) Medical History (Updated 11/27/21 @ 14:55 by Reji Barriga MD) Abdominal pain Abdominal pain Abnormal weight gain Acidosis Anemia due to end stage renal disease (~12/09/12) As above Anxiety disorder Apnea Arterial obstructive disease At risk for allergic reaction to medication dystonic reactions to Reglan (metoclopramide), Compazine (prochlorperazine) and Inapsine (droperidol) Bleeding pseudoaneurysm of left brachiocephalic AV fistula Blindness of one eye left Calf pain Cataract Celiac artery stenosis Cervical mass Chest pain Chest pain Chronic narcotic use for neuropathy; Dr. Shyam Harper, [facility] Chronic pain Complications, dialysis, catheter, mechanical Constipation Cystitis Depression Diabetes mellitus with renal manifestation Diabetic retinopathy associated with diabetes mellitus due to underlying condition DM (diabetes mellitus), type 1 with neurological complications Dyspnea Edema of lower extremity pitted, severity estimated LT: 1+ and RT: 2+ ESRD on hemodialysis Flank pain Fluid overload Foot ulcer Fracture, foot Gastroparesis History of kidney stones History of stroke X 2 Hyperkalemia Hyperlipidemia Hypertension, essential, benign Hypertensive renal disease BP near goal, good BP readings at home ct current meds follow low sodium diet will follow and optimize if elevated next visit Hypothyroidism no longer on meds 10-12-2018 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 Low back pain hx of laser disk Lumbar disc disease Macular degeneration Microhematuria MRSA (methicillin resistant Staphylococcus aureus) abscess 2007 Muscle pain Muscle weakness Nephrolithiasis (12/09/12) Nephropathy Orthopnea Overweight (12/09/12) Palpitation Pelvic pain Peripheral neuropathy (12/09/12) Pneumonia Polyneuropathy in diabetes Proteinuria Pyelonephritis Renal disease END STAGE Retinal detachment Right bundle branch block (RBBB) determined by electrocardiography RUQ abdominal pain Secondary hyperparathyroidism of renal origin PTH improved from 133 to 65 phos is normal calcium is at upper limit of normal ct renvela and cholecalciferol will monitor and optimize meds if needed Sepsis Urosepsis was noted in chart note. Shoulder pain Sleep apnea SOB (shortness of breath) Staphylococcus aureus bacteremia UTI (lower urinary tract infection) UTI (urinary tract infection) UTI (urinary tract infection) UTI (urinary tract infection) Vision changes Vitamin D deficiency (01/18/13) Vitreous hemorrhage Vomiting Weakness Weakness of right lower extremity Surgical History History of appendectomy History of arthroscopy of right shoulder History of section History of cholecystectomy History of foot surgery History of hysterectomy with oophorectomy History of shoulder surgery Right shoulder. History of surgery Celiac Plexus Block Lt. L1 w/sed 10/27/2018 S/P arteriovenous (AV) fistula creation (02/10/18) Family History Father Cerebral infarction Essential hypertension Mother Type 1 diabetes mellitus Social History (Updated 11/05/21 @ 13:02 by Ale Bond CMA) household members: significant other lives independently: Yes marital status: other details: engaged occupational status: disabled physical activity: none smoking status: Never smoker alcohol intake frequency: former alcohol drinker substance use type: does not use seatbelt use: always MEDS/ALLERGIES Home Medications and Allergies Home Medications Medication Instructions Recorded Confirmed Type docusate sodium 100 mg capsule 100 mg PO DAILYP PRN 12/05/19 11/26/21 History (Colace) bisacodyl 5 mg tablet,delayed 10 mg PO QDAY tab 03/20/20 11/26/21 History release (Dulcolax (bisacodyl)) clobetasol 0.05 % scalp solution 1 applic TOPICAL QDAY 03/20/20 11/26/21 History diphenhydramine HCl 25 mg capsule 25 - 75 mg PO Q6H PRN cap 03/20/20 11/26/21 History (Benadryl) promethazine 25 mg tablet 25 - 50 mg PO Q6HP PRN 03/20/20 11/26/21 History insulin lispro 100 unit/mL See Rx Instructions .ROUTE 11/09/20 11/26/21 History subcutaneous solution .COMPLEX ml duloxetine 60 mg capsule,delayed 60 mg PO QHS 06/26/21 11/26/21 History release furosemide 40 mg tablet 40 mg PO DAILY 06/26/21 11/26/21 History methylphenidate HCl 5 mg tablet 5 mg PO HS 06/26/21 11/26/21 History omeprazole 20 mg capsule,delayed 20 mg PO QHS 06/26/21 11/26/21 History release ondansetron HCl 8 mg tablet 8 mg PO Q8H PRN 06/26/21 11/26/21 History sevelamer carbonate 800 mg tablet 800 mg PO TIDCC 06/26/21 11/26/21 History apixaban 2.5 mg tablet 2.5 mg PO BID #60 tab 10/29/21 11/26/21 Rx naloxone 4 mg/actuation nasal 4 mg INTRANASAL Q2M PRN #1 ea 11/18/21 11/26/21 Rx spray (Narcan) amlodipine 10 mg tablet 10 mg PO QPM #90 tab 11/20/21 11/26/21 Rx carvedilol 25 mg tablet 25 mg PO BID #180 tab 11/20/21 11/26/21 Rx hydromorphone 4 mg tablet 4 mg PO Q6H PRN #240 tab MDD 8 11/20/21 11/26/21 Rx aripiprazole 5 mg tablet (Abilify) 5 mg PO QHS #30 tab 11/22/21 11/26/21 Rx insulin glargine 100 unit/mL (3 See Rx Instructions .ROUTE .COMPLEX 11/26/21 11/26/21 History mL) subcutaneous pen (Lantus Solostar U-100 Insulin) Allergies Allergy/AdvReac Type Severity Reaction Status Date / Time aspirin Allergy Severe Anaphylaxis Verified 11/26/21 22:42 droperidol [From INAPSINE] Allergy Severe Seizure Verified 11/26/21 22:42 gabapentin Allergy Severe Anaphylaxis Verified 11/26/21 22:42 honey Allergy Severe Anaphylaxis Verified 11/26/21 22:42 metoclopramide Allergy Severe Anaphylaxis Verified 11/26/21 22:42 prochlorperazine Allergy Severe Anaphylaxis Verified 11/26/21 22:42 sumatriptan Allergy Severe Anaphylaxis Verified 11/26/21 22:42 tiagabine [From Gabitril] Allergy Severe Anaphylaxis Verified 11/26/21 22:42 adhesive Allergy Intermediate Blister Verified 11/26/21 22:42 Amoxicillin Allergy Intermediate Hives Verified 11/26/21 22:42 ceftriaxone [From Rocephin] Allergy Intermediate Hives Verified 11/26/21 22:42 morphine Allergy Intermediate Blister Verified 11/26/21 22:42 Penicillins Allergy Intermediate Hives Verified 11/26/21 22:42 topiramate [From Topamax] Allergy Mild Rash Verified 11/26/21 22:42 ketamine AdvReac Intermediate Anxiety Verified 11/26/21 22:42 hydroxyzine AdvReac Mild Confusion Verified 11/26/21 22:42 Physical Examination Vital Signs Vital signs: Temp Pulse Resp BP Pulse Ox 36.4 C 77 12 144/64 96 11/27/21 07:57 11/27/21 07:57 11/27/21 07:57 11/27/21 07:57 11/27/21 07:57 General Appearance General appearance: well-developed, appears started age and chronically ill EENT EENT: mucous membranes moist and vision intact (Blind OS with opacification of lens) Neck Neck: no JVD and no carotid bruit Respiratory Respiratory: course breath sounds Cardiovascular Cardiology: mid-systolic murmur, no rub and edema Gastrointestinal Gastrointestinal: normoactive bowel sounds Integumentary Integumentary: no rash and cool/clammy Neurologic Neurologic: no asterixis and CN 3-12 intact Musculoskeletal Musculoskeletal: no deformities (swollen. Right well healed 2nd toe amputation site) and no cyanosis Psychiatric Psychiatric: mood/affect appropriate Additional Exam Additional exam: Mildly dilated vessels of left anterior chest. Results Lab Results Result Diagrams: 11/27/21 10:21 11/27/21 10:21 Lab results: Most recent lab results Calcium 9.2 mg/dL (8.6-10.4) 11/26/21 21:27 Phosphorus 5.6 mg/dL (2.5-4.5) H 11/26/21 21:27 Magnesium 2.3 mg/dL (1.6-2.5) 11/26/21 21:27 A/P Assessment and plan (1) ESRD (end stage renal disease) on dialysis: Assessment and plan: 3.5 hr Tx Qb 350-400 cc/min Qd 700 cc/min 3K/2.5 Ca Plan: HD q MWF Status: Acute (2) Internal jugular (IJ) vein thromboembolism, acute: Plan: Continue apixaban at 2.5 mg po BID Status: Acute (3) Anemia due to end stage renal disease: Plan: Aranesp q 100 ug SQ q week given hospitalization and blood loss to lab/OR Status: Chronic Comment: As above (4) Secondary hyperparathyroidism of renal origin: Assessment and plan: Vit D3 4,000 IU qD Sevelamer 1600 mg po TID with meals Plan: Continue above Status: Chronic Comment: PTH improved from 133 to 65 phos is normal calcium is at upper limit of normal ct renvela and cholecalciferol will monitor and optimize meds if needed Plan As above Narrative A/P Narrative: HD qMWF Aranesp q Thursday Renvela TID with meals Awaiting bone Bx Plan of Treatment: Monitor ESR and CRP while treating osteomyelitis Time Spent With Patient Time: Total time spent is greater than 50% in coordination of care (as documented) at patient's floor/unit and/or counseling patient:
[2021-11-27] MEDS: APIXABAN 5 MG TABLET PO SCH ×2 (10:06→21:13)
[2021-11-27] MEDS ORDERED: VANCOMYCIN PER PHARMACY IV SCH (10:26)
[2021-11-27 11:10] LABS: Blood Urea Nitrogen 74 mg/dL (6-20); Calcium 9.1 mg/dL (8.6-10.4); Carbon Dioxide 22 mmol/L (22-30); Chloride 91 mmol/L (96-108); Glomerular Filtration Rate 10; Glucose 188 mg/dL (70-105)
[2021-11-27] MEDS ORDERED: VANCOMYCIN 1,500 MG in 0.9 % SODIUM CHLORIDE 500 ML IV ONE (14:00)
--- NOTE | 2021-11-27 14:16 | Internal Med Progress Note ---
SUBJECTIVE Subjective Patient information: Note initiated : 11/27/21 at 2:14 pm Service Date, if different from initiated Date: [] Patient: Paige Lemos 51 y/o F admitted on 11/26/21 for Osteomyelitis. Chief Complaint: [] Interval history: Ms. Lemos is a 51 year old female with a history of hypertension, insulin- dependent diabetes mellitus, ESRD, superior mesenteric artery syndrome, sleep apnea, obesity, left internal jugular vein thrombosis currently being treated with apixaban, chronic diabetic right foot ulcer who presented to the [facility] emergency department for further evaluation of right foot pain. In the emergency department, the patient had a right foot MRI without contrast that showed findings consistent with osteomyelitis involving the second through fourth metatarsals as well as several tarsal bones. The patient was transferred to [facility] due to lack of acute di alysis coverage at [facility]. Prior to transfer, the patient reported that she received 1 dose of metronidazole IV. Upon arrival to [facility], the patient stable. She has edema around her right foot and a chronic appearing ulcer at the anterior plantar portion of her right foot. Additionally, the patient has edema up to her right knee. The patient de nies fevers and chills, her main complaint is right foot pain and nausea. We discussed the plan that would include surgical bone biopsies followed by initiation of broad-spectrum antibiotics then de-escalation based on culture results. We also discussed CODE STATUS, the patient wishes to be full code. 4/6 Afebrile overnight, received hemodialysis today. Dr. Eugene with podiatry will obtain surgical biopsies this afternoon. Will start vancomycin and Zosyn prior to surgery. Physical exam Head: Atraumatic, normal inspection. Eyes: normal appearance, no scleral icterus. Neck: full ROM Respiratory: no respiratory distress. Cardiovascular: normal rate and rhythm, S1, S2. GI/Abdominal: soft, nontender, no guarding. Extremities: Left upper extremity hemodialysis AV fistula w/ bruit present, right foot edema extending to right knee, chronic appearing ulcer on plantar aspect of the right foot. Neurological: CN II-XII intact, intact motor, intact sensation. Psychiatric: normal mood. Skin: Warmth and redness of right lower extremity Constitutional Vitals: Vital Signs Temp Pulse Resp BP Pulse Ox 98.1 F 69 12 127/74 96 11/27/21 13:28 11/27/21 13:28 11/27/21 07:57 11/27/21 13:28 11/27/21 11:57 Period Temp Pulse Resp BP Sys/Toro Pulse Ox Last 24 Hr 97.2 F-98.3 F 68-79 12-12 118-170/44-83 93-96 Intake and Output 11/27/21 11/27/21 11/27/21 05:59 13:59 21:59 Intake Total 200 Output Total 100 3093 Balance 100 -3093 Intake & Output: Intake & Output 11/27/21 11/27/21 11/27/21 05:59 13:59 21:59 Intake Total 200 Output Total 100 3093 Balance 100 -3093 Intake: Oral 200 Output: Void Amount 100 300 Hemodialysis UF 2793 Other: Urine Appearance Clear Urine Color Bright Yellow # Voids 1 OBJ DATA Labs CBC & Chem 7: 11/27/21 10:21 11/27/21 10:21 Labs: Abnormal Lab Results 11/27/21 11/27/21 11/26/21 10:21 10:21 21:27 RBC Hgb 8.2 L Hct Lymph # (Auto) Sodium 127 L 125 L Chloride 91 L 86 L Anion Gap 17.0 H BUN 74 H 87 H Creatinine 4.9 H 5.9 H* Glucose 188 H 206 H Hemoglobin A1c 10.5 H Phosphorus 5.6 H C-Reactive Protein 7.30 H Triglycerides 186 H 11/26/21 21:27 RBC 2.84 L Hgb 8.4 L Hct 25.4 L Lymph # (Auto) 1.38 L Sodium Chloride Anion Gap BUN Creatinine Glucose Hemoglobin A1c Phosphorus C-Reactive Protein Triglycerides Meds: Medications Acetaminophen (Acetaminophen 325 Mg Tablet) 650 mg PO Q6HP PRN; Protocol PRN Reason: Per Pain Protocol/Fever > 101 Apixaban (Apixaban 5 Mg Tablet) 2.5 mg PO BID [facility] Last Admin: 11/27/21 10:06 Dose: Not Given Documented by: Dextrose (Dextrose 50% 50 Ml Vial) 0 ml IV UD PRN PRN Reason: Per Sliding Scale Diagnostic Test (Pha) (Accu-Chek 1 Each Strip) 1 each FS ACHS [facility] Last Admin: 11/27/21 11:30 Dose: 1 each Documented by: Docusate Sodium (Docusate Sodium 100 Mg Capsule) 100 mg PO BID [facility] Last Admin: 11/27/21 08:36 Dose: Not Given Documented by: Glucose (Dextrose 31 Gm Oral.Susp) 15 gm PO PRN PRN PRN Reason: Hypoglycemia Hydromorphone HCl (Hydromorphone 2 Mg Tablet) 4 mg PO Q4HP PRN; Protocol PRN Reason: Per Pain Protocol Last Admin: 11/27/21 07:48 Dose: 4 mg Documented by: Hydromorphone HCl (Hydromorphone 0.5 Mg/0.5 Ml Syringe) 1 mg IV Q2HP PRN; Protocol PRN Reason: Per Pain Protocol Piperacillin Sod/Tazobactam (Sod 2.25 gm/ Dextrose) 50 mls @ 100 mls/hr IV Q8H [facility]; Protocol Vancomycin HCl 1,500 mg/ (Sodium Chloride) 500 mls @ 333.3 mls/hr IV 1400 ONE Stop: 11/27/21 15:30 Insulin Glargine (Insulin Glargine, Human 1 Unit/0.01 Ml) 10 unit SQ [facility] Insulin Human Lispro (Insulin Lispro 1 Unit/0.01 Ml Unit) 0 unit SQ [facility]; Protocol Last Admin: 11/27/21 11:27 Dose: Not Given Documented by: Naloxone HCl (Naloxone Hcl 0.4 Mg/Ml Vial) 0.4 mg IV Q10M PRN PRN Reason: Opiate Reversal Ondansetron HCl (Ondansetron 4 Mg/2 Ml Vial) 4 mg IV Q6HP PRN PRN Reason: Nausea And Vomiting Senna (Sennosides 1 Tablet) 2 tab PO [facility] Last Admin: 11/27/21 00:09 Dose: 2 tab Documented by: Sodium Chloride (0.9 % Sodium Chloride 10 Ml Syringe) 10 ml IV Q8 [facility] Last Admin: 11/27/21 13:54 Dose: 10 ml Documented by: Vancomycin HCl (Vancomycin Per Pharmacy) 1 order IV [facility]; Protocol A/P Narrative A/P Narrative: Assessment: 51 year old female with a history of hypertension, insulin-dependent diabetes mellitus, ESRD, superior mesenteric artery syndrome, obesity, left internal jugular vein thrombosis currently being treated with apixaban, chronic diabetic right foot ulcer admitted for osteomyelitis of right second through fourth metatarsals as well as several tarsal bones. The patient says she has an allergy to ceftriaxone but not cefazolin. She says she has tolerated Zosyn in the past. #Osteomyelitis of right second through fourth metatarsals and several tarsal bon es #Chronic right diabetic foot ulcer #Hyponatremia #Allergy to ceftriaxone, has tolerated Zosyn in the past #Insulin-dependent diabetes mellitus complicated by retinopathy and ESRD #ESRD on home hemodialysis #Left internal jugular vein thrombosis on apixaban #Hypertension #Chronic pain on opioids #Superior mesenteric artery syndrome #Depression and anxiety #Possible sleep apnea Plan -Podiatry consulted for surgical cultures, preferably bone cultures. -Start vancomycin and Zosyn today. -Follow all cultures. -Analgesics as needed. -Nephrology following for inpatient hemodialysis. -Lantus 10 units at bedtime and correction Humalog SSImedium. -Eliquis 2.5 mg twice daily. -Resume home amlodipine, carvedilol, Lasix, Abilify, duloxetine, methylphenidate, omeprazole, sevelamer. -N.p.o. until after surgery. -DVT prophylaxis: On Eliquis -CODE STATUS: Full -Disposition: Anticipate home on IV antibiotics for at least 6 weeks with weekly CBC, CMP, CRP, potentially followed by suppressive oral antibiotic therapy. Consider referral to infectious disease for osteomyelitis outpatient management. Time Spent With Patient Time: Total time spent is greater than 50% in coordination of care (as documented) at patient's floor/unit and/or counseling patient: QUALITY VTE Deep Vein Thrombosis/Pulmonary Embolism Present on Admission: No
[2021-11-27] MEDS ORDERED: IPRATROPIUM/ALBUTEROL 3 ML AMPUL.NEB NEB PRN (15:01)
--- NOTE | 2021-11-27 15:40 | EKG ---
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 Measurements Intervals [place] Rate: 72 P: 68 NC: 217 QRS: -16 QRSD: 161 T: 47 QT: 445 QTc: 488 Interpretive Statements Sinus rhythm FIRST DEGREE AV BLOCK Right bundle branch block Electronically Signed On 11-27-2021 15:40:23 PDT by Joe Melgar M.D. /store/[email or web address]/[id number]
[2021-11-27] MEDS: SEVELAMER 800 MG TABLET PO SCH (17:16)
[2021-11-27] MEDS: PIPERACILLIN SODIUM/TAZOBACTAM 2.25 GM in DEXTROSE 5% IN WATER 50 ML IV SCH ×2 (18:12→23:44)
[2021-11-27] MEDS ORDERED: NON FORMULARY MEDICATION 1 DOSE MISCELL (Carvedilol 25 mg tablet) PO SCH (21:00)
[2021-11-27] MEDS: VANCOMYCIN 1,500 MG in 0.9 % SODIUM CHLORIDE 500 ML IV ONE ×2 (21:11→22:45)
[2021-11-27] MEDS: OMEPRAZOLE 20 MG CAPSULE PO SCH (21:13)
[2021-11-27] MEDS: DULoxetine 30 MG CAPSULE PO SCH (21:13)
[2021-11-27] MEDS: ARIPIPRAZOLE 5 MG TABLET PO SCH (21:13)
[2021-11-27] MEDS: amLODIPine 10 MG TABLET PO SCH (21:14)
[2021-11-27] MEDS: CARVEDILOL 12.5 MG TABLET PO SCH (21:14)
[2021-11-27] MEDS: INSULIN GLARGINE, HUMAN 1 UNIT/0.01 ML SQ SCH (21:14)
[2021-11-28] MEDS: HYDROmorphone 0.5 MG/0.5 ML SYRINGE IV PRN ×4 (05:05→16:09)
[2021-11-28] MEDS: 0.9 % SODIUM CHLORIDE 10 ML SYRINGE IV SCH ×5 (05:05→23:45)
[2021-11-28] MEDS: PIPERACILLIN SODIUM/TAZOBACTAM 2.25 GM in DEXTROSE 5% IN WATER 50 ML IV SCH ×3 (05:06→21:52)
[2021-11-28 06:51] LABS: Vancomycin,Random < 4.0 ug/mL
[2021-11-28] MEDS: INSULIN LISPRO 1 UNIT/0.01 ML UNIT SQ SCH ×4 (07:05→21:15)
[2021-11-28] MEDS: SEVELAMER 800 MG TABLET PO SCH ×3 (07:07→17:30)
[2021-11-28] MEDS: HYDROmorphone 2 MG TABLET PO PRN ×3 (08:00→21:44)
--- NOTE | 2021-11-28 08:23 | Nephrology Progress Note ---
SUBJECTIVE Subjective Patient information: Note initiated : 11/28/21 at 8:21 am Service Date, if different from initiated Date: [] Patient: Paige Lemos 51 y/o F admitted on 11/26/21 for Osteomyelitis. Chief Complaint: [Right foot pain] Principal diagnosis: Right foot osteomyelitis by MRI Interval history: Seen Examined and Data reviewed. 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 Hemo access for long tem ABx will be difficult. 1. Scan right venous system to assure patency 2. If you do get a sample for Culture and test sensitivty against ZYVOX whic h could be given orally 3. 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 Pertinent ROS: Allergy (hives) to cephalosporin Additional PMFSH (Level 3 Only): N/A Constitutional Vitals: Vital Signs Temp Pulse Resp BP Pulse Ox 36.4 C 62 16 144/77 95 11/28/21 07:12 11/28/21 07:12 11/28/21 07:12 11/28/21 07:12 11/28/21 07:12 Period Temp Pulse Resp BP Sys/Toro Pulse Ox Last 24 Hr 36.3 C-36.7 C 62-77 12-16 118-156/44-80 93-98 Intake and Output 11/27/21 11/28/21 11/28/21 21:59 05:59 13:59 Intake Total 50 650 50 Output Total 300 250 Balance -250 400 50 Weight 95.708 kg Intake & Output: Intake & Output 11/27/21 11/28/21 11/28/21 21:59 05:59 13:59 Intake Total 50 650 50 Output Total 300 250 Balance -250 400 50 Weight 95.708 kg Intake: IV 50 550 50 Zosyn 2.25 gm In Dextrose 5% in 50 50 50 Water 50 ml @ 100 mls/hr IV Q8H [facility] Rx#:[id number] Vancomycin 1,500 mg In Sodium 500 Chloride 0.9% 500 ml @ 333.3 mls/hr IV ONCE ONE Rx#: [id number] Oral 100 Output: Void Amount 300 250 Other: Urine Appearance Clear Urine Color Bright Yellow Exam: Unavailable x 2 trips to [facility] floor. A/P Narrative A/P Narrative: Patient missing Not seen No bill Orders for HD written tomorrow. Plan of Treatment: Monitor ESR and CRP while treating osteomyelitis Time Spent With Patient Time: Total time spent is greater than 50% in coordination of care (as documented) at patient's floor/unit and/or counseling patient:
[2021-11-28] MEDS ORDERED: FUROSEMIDE 40 MG TABLET PO SCH (09:00)
[2021-11-28] MEDS: CARVEDILOL 12.5 MG TABLET PO SCH ×2 (10:00→21:14)
[2021-11-28] MEDS: DOCUSATE SODIUM 100 MG CAPSULE PO SCH ×2 (10:00→21:15)
[2021-11-28] MEDS: APIXABAN 5 MG TABLET PO SCH ×2 (10:00→21:14)
[2021-11-28] MEDS ORDERED: PROPOFOL 200 MG/20 ML VIAL IV ONE (14:50)
[2021-11-28] MEDS ORDERED: IPRATROPIUM/ALBUTEROL 3 ML AMPUL.NEB NEB PRN (15:00)
[2021-11-28 15:10] LABS: Vancomycin,Random < 4.0 ug/mL
[2021-11-28] MEDS ORDERED: VANCOMYCIN 1,500 MG in 0.9 % SODIUM CHLORIDE 500 ML IV ONE (15:30)
[2021-11-28] MEDS ORDERED: LIDOCAINE 1% 20 ML, BUPIVACAINE 0.5% 20 ML SQ ONE (15:45)
--- NOTE | 2021-11-28 16:06 | Orthopedic Consult Note ---
HPI Data of Consult Patient: known to practice within the last 3 years Consult date: 11/27/21 Primary Care Provider: Bridger Benites MD Consult Narrative Chief complaint: Right foot osteomyelitis Reason for consult: pt with MRI evidence of osteomyelitis of the right foot History of present illness: 2 month hx of mild foot ulceration sub met 5 fulminating into recent bone probing ulceration. pt was seen in office sent up to ER and was transferred to [facility] for hemodialysis cc:: CC: Adarsh Rodrigues MD Constitutional Constitutional: Present daytime sleepiness, increased appetite and lethargy EENT Additional comments: blind in left eye Gastrointestinal Gastrointestinal: Present vomiting (no vomit) Neurological Neurological: Present numbness, paresthesias and sensory deficit PFSH PFSH All Active Problems (Updated 11/27/21 @ 14:55 by Reji Barriga MD) Apnea (Chronic) Blindness of one eye (Chronic) Cataract (Chronic) Chronic pain (Chronic) Diabetes mellitus with renal manifestation (Chronic) DM (diabetes mellitus), type 1 with neurological complications (Chronic) Hypothyroidism (Chronic) History of kidney stones (Chronic) 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) Lumbar disc disease (Chronic) Microhematuria (Chronic) Nephrolithiasis (Chronic 12/09/12) Overweight (Chronic 12/09/12) Peripheral neuropathy (Chronic 12/09/12) Polyneuropathy in diabetes (Chronic) Proteinuria (Chronic) Diabetic retinopathy associated with diabetes mellitus due to underlying condition (Chronic) SOB (shortness of breath) (Chronic) MRSA (methicillin resistant Staphylococcus aureus) (Chronic) Vitamin D deficiency (Chronic 01/18/13) Hypertensive renal disease (Chronic) Secondary hyperparathyroidism of renal origin (Chronic) Low back pain (Chronic) Hypertension, essential, benign (Chronic) Right bundle branch block (RBBB) determined by electrocardiography (Chronic) Gastroparesis (Chronic) Chronic narcotic use (Chronic) At risk for allergic reaction to medication (Chronic) ESRD on hemodialysis (Chronic) Anemia due to end stage renal disease (Chronic ~12/09/12) Cervical mass (Chronic) Celiac artery stenosis (Chronic) Abdominal pain (Chronic) UTI (urinary tract infection) (Chronic) Hyperlipidemia (Chronic) RUQ abdominal pain (Chronic) Arterial obstructive disease (Chronic) Macular degeneration (Chronic) History of stroke (Chronic) Anxiety disorder (Chronic) Depression (Chronic) Sleep apnea (Chronic) Muscle pain (Chronic) Muscle weakness (Chronic) Kidney cyst, acquired (Chronic) Hematuria (Chronic) SMAS (superior mesenteric artery syndrome) (Chronic) Renal disease (Chronic) Hypoglycemia unawareness associated with type 1 diabetes mellitus (Acute) Diabetic infection of right foot (Acute) V-tach (Acute) Type 1 diabetes mellitus with end-stage renal disease (Acute) Median arcuate ligament syndrome (Acute) Internal jugular (IJ) vein thromboembolism, acute (Acute) Foot ulcer (Acute) ESRD (end stage renal disease) on dialysis (Acute) Complication of arteriovenous dialysis fistula (Acute) Medical History (Updated 11/27/21 @ 14:55 by Reji Barriga MD) Abdominal pain Abdominal pain Abnormal weight gain Acidosis Anemia due to end stage renal disease (~12/09/12) As above Anxiety disorder Apnea Arterial obstructive disease At risk for allergic reaction to medication dystonic reactions to Reglan (metoclopramide), Compazine (prochlorperazine) and Inapsine (droperidol) Bleeding pseudoaneurysm of left brachiocephalic AV fistula Blindness of one eye left Calf pain Cataract Celiac artery stenosis Cervical mass Chest pain Chest pain Chronic narcotic use for neuropathy; Dr. Shyam Harper, [facility] Chronic pain Complications, dialysis, catheter, mechanical Constipation Cystitis Depression Diabetes mellitus with renal manifestation Diabetic retinopathy associated with diabetes mellitus due to underlying condition DM (diabetes mellitus), type 1 with neurological complications Dyspnea Edema of lower extremity pitted, severity estimated LT: 1+ and RT: 2+ ESRD on hemodialysis Flank pain Fluid overload Foot ulcer Fracture, foot Gastroparesis History of kidney stones History of stroke X 2 Hyperkalemia Hyperlipidemia Hypertension, essential, benign Hypertensive renal disease BP near goal, good BP readings at home ct current meds follow low sodium diet will follow and optimize if elevated next visit Hypothyroidism no longer on meds 10-12-2018 Infection of hemodialysis tunneled catheter [facility] current use of insulin Low back pain hx of laser disk Lumbar disc disease Macular degeneration Microhematuria MRSA (methicillin resistant Staphylococcus aureus) abscess 2006 Muscle pain Muscle weakness Nephrolithiasis (12/09/12) Nephropathy Orthopnea Overweight (12/09/12) Palpitation Pelvic pain Peripheral neuropathy (12/09/12) Pneumonia Polyneuropathy in diabetes Proteinuria Pyelonephritis Renal disease END STAGE Retinal detachment Right bundle branch block (RBBB) determined by electrocardiography RUQ abdominal pain Secondary hyperparathyroidism of renal origin PTH improved from 133 to 65 phos is normal calcium is at upper limit of normal ct renvela and cholecalciferol will monitor and optimize meds if needed Sepsis Urosepsis was noted in chart note. Shoulder pain Sleep apnea SOB (shortness of breath) Staphylococcus aureus bacteremia UTI (lower urinary tract infection) UTI (urinary tract infection) UTI (urinary tract infection) UTI (urinary tract infection) Vision changes Vitamin D deficiency (01/18/13) Vitreous hemorrhage Vomiting Weakness Weakness of right lower extremity Surgical History History of appendectomy History of arthroscopy of right shoulder History of section History of cholecystectomy History of foot surgery History of hysterectomy with oophorectomy History of shoulder surgery Right shoulder. History of surgery Celiac Plexus Block Lt. L1 w/sed 10/27/2018 S/P arteriovenous (AV) fistula creation (02/10/18) Family History Father Cerebral infarction Essential hypertension Mother Type 1 diabetes mellitus Social History (Updated 11/05/21 @ 13:02 by Ale Bond CMA) household members: significant other lives independently: Yes marital status: other details: engaged occupational status: disabled physical activity: none smoking status: Never smoker alcohol intake frequency: former alcohol drinker substance use type: does not use seatbelt use: always MEDS/ALLERGIES Home Medications and Allergies Home Medications Medication Instructions Recorded Confirmed Type docusate sodium 100 mg capsule 100 mg PO DAILYP PRN 12/05/19 11/26/21 History (Colace) bisacodyl 5 mg tablet,delayed 10 mg PO QDAY tab 03/20/20 11/26/21 History release (Dulcolax (bisacodyl)) clobetasol 0.05 % scalp solution 1 applic TOPICAL QDAY 03/20/20 11/26/21 History diphenhydramine HCl 25 mg capsule 25 - 75 mg PO Q6H PRN cap 03/20/20 11/26/21 History (Benadryl) promethazine 25 mg tablet 25 - 50 mg PO Q6HP PRN 03/20/20 11/26/21 History insulin lispro 100 unit/mL See Rx Instructions .ROUTE 11/09/20 11/26/21 History subcutaneous solution .COMPLEX ml duloxetine 60 mg capsule,delayed 60 mg PO QHS 11/03/21 04/05/22 History release furosemide 40 mg tablet 40 mg PO DAILY 06/26/21 11/26/21 History methylphenidate HCl 5 mg tablet 5 mg PO HS 06/26/21 11/26/21 History omeprazole 20 mg capsule,delayed 20 mg PO QHS 06/26/21 11/26/21 History release ondansetron HCl 8 mg tablet 8 mg PO Q8H PRN 06/26/21 11/26/21 History sevelamer carbonate 800 mg tablet 800 mg PO TIDCC 06/26/21 11/26/21 History apixaban 2.5 mg tablet 2.5 mg PO BID #60 tab 10/29/21 11/26/21 Rx naloxone 4 mg/actuation nasal 4 mg INTRANASAL Q2M PRN #1 ea 11/18/21 11/26/21 Rx spray (Narcan) amlodipine 10 mg tablet 10 mg PO QPM #90 tab 11/20/21 11/26/21 Rx carvedilol 25 mg tablet 25 mg PO BID #180 tab 11/20/21 11/26/21 Rx hydromorphone 4 mg tablet 4 mg PO Q6H PRN #240 tab MDD 8 11/20/21 11/26/21 Rx aripiprazole 5 mg tablet (Abilify) 5 mg PO QHS #30 tab 11/22/21 11/26/21 Rx insulin glargine 100 unit/mL (3 See Rx Instructions .ROUTE .COMPLEX 11/26/21 11/26/21 History mL) subcutaneous pen (Lantus Solostar U-100 Insulin) Allergies Allergy/AdvReac Type Severity Reaction Status Date / Time aspirin Allergy Severe Anaphylaxis Verified 11/26/21 22:42 gabapentin Allergy Severe Anaphylaxis Verified 11/26/21 22:42 honey Allergy Severe Anaphylaxis Verified 11/26/21 22:42 metoclopramide Allergy Severe Anaphylaxis Verified 11/26/21 22:42 prochlorperazine Allergy Severe Anaphylaxis Verified 11/26/21 22:42 sumatriptan Allergy Severe Anaphylaxis Verified 11/26/21 22:42 tiagabine [From Gabitril] Allergy Severe Anaphylaxis Verified 11/26/21 22:42 adhesive Allergy Mild Blister Verified 11/28/21 13:32 Amoxicillin Allergy Mild Hives Verified 11/28/21 13:32 ceftriaxone [From Rocephin] Allergy Mild Hives Verified 11/28/21 13:32 Penicillins Allergy Mild Hives Verified 11/28/21 13:32 topiramate [From Topamax] Allergy Mild Rash Verified 11/26/21 22:42 droperidol [From INAPSINE] AdvReac Severe Seizure Verified 11/28/21 13:32 ketamine AdvReac Intermediate Anxiety Verified 11/26/21 22:42 hydroxyzine AdvReac Mild Confusion Verified 11/26/21 22:42 morphine AdvReac Mild Blister Verified 11/28/21 13:32 Physical Examination Narrative Narrative: Narrative: Ankle & Foot right: Ankle appearance: swelling, erythema and other (bone probing ulceration 4th interspace from plantar surface - no purulent dicharge. moderate edema forefoot to knee improved since seen in clinic. despite significant neuropathy both feet, pt is feeling and unusual amount of pain in her entire right foot) Tenderness with palpation: plantar foot A/P Narrative Plan of Treatment: Monitor ESR and CRP while treating osteomyelitis Time Spent With Patient Time: Total time spent is greater than 50% in coordination of care (as documented) at patient's floor/unit and/or counseling patient: Total time spent with greater than 50% in coordination of care (as documented) at patient's floor/unit and/or counseling patient:: 50 - 70 minutes Attestation: PLAN: right foot osteomyelitis multiple bones of metatarsals, cuboid, navicular and cuneiforms- MRI results discussed with patient and spouse. mild leukocytosis, moderate increases in CRP and ESR consistent with mild to moderate bone infection. 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 pt is aware and would like to proceed with antibiotic therapy Pt and would like to proceed with antibiotics at this time and are aware of possible sepsis and increase in infected bone and tissues and possible need for AKA Risks alternatives and complications of multiple bone biopsies (2) to right foot reiterated to pt and - procedure set up for tomorrow. pt NPO 11/28/2021 at midnight Dressing was changed with jaiden and rod. heel wb only to bathroom and back to bed will contact nephrology and woundcare to coordinate care
--- NOTE | 2021-11-28 16:11 | Brief Operative Note ---
Brief Operative Note Date of procedure: 11/28/21 Pre-op diagnosis: right foot osteomyelitis Post-op diagnosis: same Procedure: bone biopsy x2 right foot- cuboid and cuneiform Grafts/Implants: No Anesthesia: MAC (22 ml 1:1 ration of 0.5% marcaine plain and 1% lidocaine plain) Complications: none Surgeon: Dawson Eugene Estimated blood loss (cc): 0 Tourniquet Time (Minutes): 0 Specimens Removed/Pathology: other (1) cuboid bone- CS and pathology (2) right cuneiform -CS and pathology) Condition: stable Disposition: floor
--- NOTE | 2021-11-28 17:10 | Internal Med Progress Note ---
SUBJECTIVE Subjective Patient information: Note initiated : 11/28/21 at 5:08 pm Service Date, if different from initiated Date: [] Patient: Paige Lemos 51 y/o F admitted on 11/26/21 for Osteomyelitis. Chief Complaint: [] Principal diagnosis: Right foot osteomyelitis by MRI Interval history: Ms. Lemos is a 51 year old female with a history of hypertension, insulin- dependent diabetes mellitus, ESRD, superior mesenteric artery syndrome, sleep apnea, obesity, left internal jugular vein thrombosis currently being treated with apixaban, chronic diabetic right foot ulcer who presented to the [facility] emergency department for further evaluation of right foot pain. In the emergency department, the patient had a right foot MRI without contrast that showed findings consistent with osteomyelitis involving the second through fourth metatarsals as well as several tarsal bones. The patient was transferred to [facility] due to lack of acute dialysis coverage at [facility]. Prior to transfer, the patient reported that she received 1 dose of metronidazole IV. Upon arrival to [facility], the patient stable. She has edema around her right foot and a chronic appearing ulcer at the anterior plantar portion of her right foot. Additionally, the patient has edema up to her right knee. The patient denies fevers and chills, her main complaint is right foot pain and nausea. We discussed the plan that would include surgical bone biopsies followed by initiation of broad-spectrum antibiotics then de-escalation based on culture results. We also discussed CODE STATUS, the patient wishes to be full code. / Afebrile overnight, received hemodialysis today. Dr. Eugene with podiatry will obtain surgical biopsies this afternoon. Will start vancomycin and Zosyn prior to surgery. 11/28 Surgical biopsies planned for today, foot edema somewhat improved. Physical exam Head: Atraumatic, normal inspection. Eyes: normal appearance, no scleral icterus. Neck: full ROM Respiratory: no respiratory distress. Cardiovascular: normal rate and rhythm, S1, S2. GI/Abdominal: soft, nontender, no guarding. Extremities: Left upper extremity hemodialysis AV fistula w/ bruit present, right foot edema extending to right knee, chronic appearing ulcer on plantar aspect of the right foot. Neurological: CN II-XII intact, intact motor, intact sensation. Psychiatric: normal mood. Skin: Warmth and redness of right lower extremity Constitutional Vitals: Vital Signs Temp Pulse Resp BP Pulse Ox 98.3 F 67 17 134/75 93 11/28/21 11:51 11/28/21 11:51 11/28/21 11:51 11/28/21 11:51 11/28/21 11:51 Period Temp Pulse Resp BP Sys/Toro Pulse Ox Last 24 Hr 97.4 F-98.3 F 62-68 14-17 119-150/63-78 93-96 Intake and Output 11/28/21 11/28/21 11/28/21 05:59 13:59 21:59 Intake Total 650 50 50 Output Total 250 Balance 400 50 50 Intake & Output: Intake & Output 11/28/21 11/28/21 11/28/21 05:59 13:59 21:59 Intake Total 650 50 50 Output Total 250 Balance 400 50 50 Intake: IV 550 50 50 Zosyn 2.25 gm In Dextrose 5% in 50 50 50 Water 50 ml @ 100 mls/hr IV Q8H [facility] Rx#:[id number] Vancomycin 1,500 mg In Sodium 500 Chloride 0.9% 500 ml @ 333.3 mls/hr IV ONCE ONE Rx#: [id number] Oral 100 Output: Void Amount 250 Other: Urine Appearance Clear Urine Color Bright Yellow OBJ DATA Labs CBC & Chem 7: 11/27/21 10:21 11/27/21 10:21 Labs: Abnormal Lab Results 11/27/21 11/27/21 11/26/21 10:21 10:21 21:27 RBC Hgb 8.2 L Hct Lymph # (Auto) Sodium 127 L 125 L Chloride 91 L 86 L Anion Gap 17.0 H BUN 74 H 87 H Creatinine 4.9 H 5.9 H* Glucose 188 H 206 H Hemoglobin A1c 10.5 H Phosphorus 5.6 H C-Reactive Protein 7.30 H Triglycerides 186 H 11/26/21 21:27 RBC 2.84 L Hgb 8.4 L Hct 25.4 L Lymph # (Auto) 1.38 L Sodium Chloride Anion Gap BUN Creatinine Glucose Hemoglobin A1c Phosphorus C-Reactive Protein Triglycerides Meds: Medications Acetaminophen (Acetaminophen 325 Mg Tablet) 650 mg PO Q6HP PRN; Protocol PRN Reason: Per Pain Protocol/Fever > 101 Albuterol/Ipratropium (Ipratropium/Albuterol 3 Ml Ampul.Neb) 3 ml NEB ONCE PRN PRN Reason: Shortness Of Breath Stop: 11/28/21 23:59 Amlodipine Besylate (Amlodipine 10 Mg Tablet) 10 mg PO QPM [facility] Last Admin: 11/27/21 21:14 Dose: 10 mg Documented by: Apixaban (Apixaban 5 Mg Tablet) 2.5 mg PO BID [facility] Last Admin: 11/28/21 10:00 Dose: 2.5 mg Documented by: Carvedilol (Carvedilol 12.5 Mg Tablet) 25 mg PO BID [facility] Last Admin: 11/28/21 10:00 Dose: 25 mg Documented by: Dextrose (Dextrose 50% 50 Ml Vial) 0 ml IV UD PRN PRN Reason: Per Sliding Scale Diagnostic Test (Pha) (Accu-Chek 1 Each Strip) 1 each FS ACHS [facility] Last Admin: 11/28/21 16:32 Dose: 1 each Documented by: Docusate Sodium (Docusate Sodium 100 Mg Capsule) 100 mg PO BID [facility] Last Admin: 11/28/21 10:00 Dose: 100 mg Documented by: Duloxetine HCl (Duloxetine 30 Mg Capsule) 60 mg PO QHS [facility] Last Admin: 11/27/21 21:13 Dose: 60 mg Documented by: Furosemide (Furosemide 40 Mg Tablet) 40 mg PO DAILY [facility] Last Admin: 11/28/21 10:44 Dose: Not Given Documented by: Glucose (Dextrose 31 Gm Oral.Susp) 15 gm PO PRN PRN PRN Reason: Hypoglycemia Hydromorphone HCl (Hydromorphone 2 Mg Tablet) 4 mg PO Q4HP PRN; Protocol PRN Reason: Per Pain Protocol Last Admin: 11/28/21 08:00 Dose: 4 mg Documented by: Hydromorphone HCl (Hydromorphone 1 Mg/Ml Syringe) 1 mg IV Q2HP PRN; Protocol PRN Reason: Per Pain Protocol Piperacillin Sod/Tazobactam (Sod 2.25 gm/ Dextrose) 50 mls @ 100 mls/hr IV Q8H [facility]; Protocol Last Infusion: 11/28/21 14:12 Dose: Infused Documented by: Insulin Glargine (Insulin Glargine, Human 1 Unit/0.01 Ml) 10 unit SQ HS [facility] Last Admin: 11/27/21 21:14 Dose: 10 unit Documented by: Insulin Human Lispro (Insulin Lispro 1 Unit/0.01 Ml Unit) 0 unit SQ [facility]; Protocol Last Admin: 11/28/21 16:33 Dose: Not Given Documented by: Naloxone HCl (Naloxone Hcl 0.4 Mg/Ml Vial) 0.4 mg IV Q10M PRN PRN Reason: Opiate Reversal Omeprazole (Omeprazole 20 Mg Capsule) 20 mg PO QHS [facility] Last Admin: 11/27/21 21:13 Dose: 20 mg Documented by: Ondansetron HCl (Ondansetron 4 Mg/2 Ml Vial) 4 mg IV Q6HP PRN PRN Reason: Nausea And Vomiting Methylphenidate Hcl (5 Mg Tablet) 1 dose PO [facility] Last Admin: 11/27/21 21:17 Dose: Not Given Documented by: Senna (Sennosides 1 Tablet) 2 tab PO [facility] Last Admin: 11/27/21 21:14 Dose: 2 tab Documented by: Sevelamer Carbonate (Sevelamer 800 Mg Tablet) 800 mg PO TIDCC [facility] Last Admin: 11/28/21 10:59 Dose: Not Given Documented by: Sodium Chloride (0.9 % Sodium Chloride 10 Ml Syringe) 10 ml IV Q8 [facility] Last Admin: 11/28/21 14:09 Dose: Not Given Documented by: Vancomycin HCl (Vancomycin Per Pharmacy) 1 order IV [facility]; Protocol A/P Narrative A/P Narrative: Assessment: 51 year old female with a history of hypertension, insulin-dependent diabetes mellitus, ESRD, superior mesenteric artery syndrome, obesity, left internal jugular vein thrombosis currently being treated with apixaban, chronic diabetic right foot ulcer admitted for osteomyelitis of right second through fourth metatarsals as well as several tarsal bones. The patient says she has an allergy to ceftriaxone but not cefazolin. She says she has tolerated Zosyn in the past. #Osteomyelitis of right second through fourth metatarsals and several tarsal bones #Chronic right diabetic foot ulcer #Hyponatremia #Allergy to ceftriaxone, has tolerated Zosyn in the past #Insulin-dependent diabetes mellitus complicated by retinopathy and ESRD #ESRD on home hemodialysis #Left internal jugular vein thrombosis on apixaban #Hypertension #Chronic pain on opioids #Superior mesenteric artery syndrome #Depression and anxiety #Possible sleep apnea Plan -Podiatry consulted for surgical cultures, preferably bone cultures. -Continue vancomycin and Zosyn today. -Follow all cultures. -Analgesics as needed. -Nephrology following for inpatient hemodialysis. -Lantus 10 units at bedtime and correction Humalog SSImedium. -Eliquis 2.5 mg twice daily. -Home amlodipine, carvedilol, Lasix, Abilify, duloxetine, methylphenidate, omeprazole, sevelamer. -Diet per podiatry. -DVT prophylaxis: On Eliquis -CODE STATUS: Full -Disposition: Anticipate home on IV antibiotics for at least 6 weeks with weekly CBC, CMP, CRP, potentially followed by suppressive oral antibiotic therapy. Consider referral to infectious disease for osteomyelitis outpatient management. Plan of Treatment: Monitor ESR and CRP while treating osteomyelitis Time Spent With Patient Time: Total time spent is greater than 50% in coordination of care (as documented) at patient's floor/unit and/or counseling patient: QUALITY VTE Deep Vein Thrombosis/Pulmonary Embolism Present on Admission: No
[2021-11-28] MEDS ORDERED: ALBUMIN HUMAN 12.5 GM/50 ML BAG IV PRN (17:17)
[2021-11-28] MEDS: HYDROmorphone 1 MG/ML SYRINGE IV PRN ×2 (19:29→23:44)
[2021-11-28] MEDS: ARIPIPRAZOLE 5 MG TABLET PO SCH (21:14)
[2021-11-28] MEDS: amLODIPine 10 MG TABLET PO SCH (21:14)
[2021-11-28] MEDS: SENNOSIDES 1 TABLET PO SCH (21:14)
[2021-11-28] MEDS: DULoxetine 30 MG CAPSULE PO SCH (21:14)
[2021-11-28] MEDS: OMEPRAZOLE 20 MG CAPSULE PO SCH (21:14)
[2021-11-28] MEDS: INSULIN GLARGINE, HUMAN 1 UNIT/0.01 ML SQ SCH (21:15)
[2021-11-29] MEDS: HYDROmorphone 2 MG TABLET PO PRN ×5 (02:08→21:49)
[2021-11-29] MEDS: 0.9 % SODIUM CHLORIDE 10 ML SYRINGE IV SCH ×6 (03:38→22:40)
[2021-11-29] MEDS: HYDROmorphone 1 MG/ML SYRINGE IV PRN ×8 (03:38→22:39)
[2021-11-29] MEDS: PIPERACILLIN SODIUM/TAZOBACTAM 2.25 GM in DEXTROSE 5% IN WATER 50 ML IV SCH ×3 (05:29→22:05)
[2021-11-29] MEDS: INSULIN LISPRO 1 UNIT/0.01 ML UNIT SQ SCH ×4 (07:48→21:50)
--- NOTE | 2021-11-29 08:30 | Orthopedic Progress Note ---
SUBJECTIVE Subjective Patient information: Note initiated : 11/29/21 at 8:16 am Service Date, if different from initiated Date: [] Patient: Paige Lemos 51 y/o F admitted on 11/26/21 for Osteomyelitis. Chief Complaint: [] Principal diagnosis: Right foot osteomyelitis by MRI Interval history: POD#1 right foot bone biopsy x2 Pertinent ROS: denies:ns, chills, sf, vomit,sob or cp. pt continues to have foot pain Constitutional Vitals: Vital Signs Temp Pulse Resp BP Pulse Ox 100.1 F H 76 18 134/71 99 11/29/21 07:06 11/29/21 07:06 11/29/21 07:06 11/29/21 07:06 11/29/21 07:06 Period Temp Pulse Resp BP Sys/Toro Pulse Ox Last 24 Hr 97.9 F-100.1 F 67-76 16-18 120-158/61-78 93-99 Intake and Output 11/28/21 11/29/21 11/29/21 21:59 05:59 13:59 Intake Total 550 450 50 Output Total 400 Balance 550 50 50 Weight 218 lb Intake & Output: Intake & Output 11/28/21 11/29/21 11/29/21 21:59 05:59 13:59 Intake Total 550 450 50 Output Total 400 Balance 550 50 50 Weight 218 lb Intake: IV 550 50 50 Zosyn 2.25 gm In Dextrose 5% in 50 50 50 Water 50 ml @ 100 mls/hr IV Q8H [facility] Rx#:[id number] Vancomycin 1,500 mg In Sodium 500 Chloride 0.9% 500 ml @ 333.3 mls/hr IV ONCE ONE Rx#: [id number] Oral 400 Output: Void Amount 400 Other: Meal Dinner Percent of Meal Consumed 50% General appearance: cooperative and no acute distress Extremities Exam Extremities exam: Present normal capillary refill and tenderness Additional comments: leg swelling improving Skin Additional comments: dressing feel tight- minimal sanguineous strikethrough dressing. leg edema reduced, without streaking erythema or calor bone probing ulceration submet 4 OBJ DATA Labs CBC & Chem 7: 11/27/21 10:21 11/27/21 10:21 Labs: Abnormal Lab Results 11/27/21 11/27/21 11/26/21 10:21 10:21 21:27 RBC Hgb 8.2 L Hct Lymph # (Auto) Sodium 127 L 125 L Chloride 91 L 86 L Anion Gap 17.0 H BUN 74 H 87 H Creatinine 4.9 H 5.9 H* Glucose 188 H 206 H Hemoglobin A1c 10.5 H Phosphorus 5.6 H C-Reactive Protein 7.30 H Triglycerides 186 H 11/26/21 21:27 RBC 2.84 L Hgb 8.4 L Hct 25.4 L Lymph # (Auto) 1.38 L Sodium Chloride Anion Gap BUN Creatinine Glucose Hemoglobin A1c Phosphorus C-Reactive Protein Triglycerides Meds: Medications Acetaminophen (Acetaminophen 325 Mg Tablet) 650 mg PO Q6HP PRN; Protocol PRN Reason: Per Pain Protocol/Fever > 101 Amlodipine Besylate (Amlodipine 10 Mg Tablet) 10 mg PO QPM [facility] Last Admin: 11/28/21 21:14 Dose: 10 mg Documented by: Apixaban (Apixaban 5 Mg Tablet) 2.5 mg PO BID [facility] Last Admin: 11/28/21 21:14 Dose: 2.5 mg Documented by: Carvedilol (Carvedilol 12.5 Mg Tablet) 25 mg PO BID [facility] Last Admin: 11/28/21 21:14 Dose: 25 mg Documented by: Darbepoetin Daniel (Darbepoetin Daniel 100 Mcg/Ml Vial) 100 mcg IV Q7D [facility] Dextrose (Dextrose 50% 50 Ml Vial) 0 ml IV UD PRN PRN Reason: Per Sliding Scale Diagnostic Test (Pha) (Accu-Chek 1 Each Strip) 1 each FS ACHS [facility] Last Admin: 11/29/21 07:47 Dose: 1 each Documented by: Docusate Sodium (Docusate Sodium 100 Mg Capsule) 100 mg PO BID [facility] Last Admin: 11/28/21 21:15 Dose: 100 mg Documented by: Duloxetine HCl (Duloxetine 30 Mg Capsule) 60 mg PO QHS [facility] Last Admin: 11/28/21 21:14 Dose: 60 mg Documented by: Glucose (Dextrose 31 Gm Oral.Susp) 15 gm PO PRN PRN PRN Reason: Hypoglycemia Hydromorphone HCl (Hydromorphone 2 Mg Tablet) 4 mg PO Q4HP PRN; Protocol PRN Reason: Per Pain Protocol Last Admin: 11/29/21 07:04 Dose: 4 mg Documented by: Hydromorphone HCl (Hydromorphone 1 Mg/Ml Syringe) 1 mg IV Q2HP PRN; Protocol PRN Reason: Per Pain Protocol Last Admin: 11/29/21 05:39 Dose: 1 mg Documented by: Piperacillin Sod/Tazobactam (Sod 2.25 gm/ Dextrose) 50 mls @ 100 mls/hr IV Q8H [facility]; Protocol Last Infusion: 11/29/21 06:03 Dose: Infused Documented by: Albumin Human (Buminate) 12.5 gm in 50 mls @ 100 mls/hr IV Q2HP PRN PRN Reason: Hypotension Insulin Glargine (Insulin Glargine, Human 1 Unit/0.01 Ml) 10 unit SQ [facility] Last Admin: 11/28/21 21:15 Dose: 10 unit Documented by: Insulin Human Lispro (Insulin Lispro 1 Unit/0.01 Ml Unit) 0 unit SQ [facility]; Protocol Last Admin: 11/29/21 07:48 Dose: Not Given Documented by: Naloxone HCl (Naloxone Hcl 0.4 Mg/Ml Vial) 0.4 mg IV Q10M PRN PRN Reason: Opiate Reversal Omeprazole (Omeprazole 20 Mg Capsule) 20 mg PO QHS [facility] Last Admin: 11/28/21 21:14 Dose: 20 mg Documented by: Ondansetron HCl (Ondansetron 4 Mg/2 Ml Vial) 4 mg IV Q6HP PRN PRN Reason: Nausea And Vomiting Methylphenidate Hcl (5 Mg Tablet) 1 dose PO [facility] Last Admin: 11/28/21 21:16 Dose: Not Given Documented by: Senna (Sennosides 1 Tablet) 2 tab PO [facility] Last Admin: 11/28/21 21:14 Dose: 2 tab Documented by: Sevelamer Carbonate (Sevelamer 800 Mg Tablet) 800 mg PO TIDCC [facility] Last Admin: 11/28/21 17:30 Dose: 800 mg Documented by: Sodium Chloride (0.9 % Sodium Chloride 10 Ml Syringe) 10 ml IV Q8 [facility] Last Admin: 11/29/21 05:30 Dose: 10 ml Documented by: Vancomycin HCl (Vancomycin Per Pharmacy) 1 order IV UD [facility]; Protocol A/P Assessment and plan (1) Diabetic foot ulcer with osteomyelitis: Assessment and plan: osteomyelitis right foot:metatarsals and tarsals/cuboid, cuneiform, navicular Status: Acute Plan POD#2 right foot bone biopsy x2 for MRI evident osteomyelitis of tarsals and metatarsals and plantar 4th metatarsal bone probing wound. Broad spectrum abx coverage-follow bone cultures will contact lab to have zyvox added to sensitivity tray (pt had plantar deep wound culture from office visit significant for MSSA and skin darya will have woundcare consult pt to be dialysed today hwb to transfer right leg Narrative Plan of Treatment: Monitor ESR and CRP while treating osteomyelitis Time Spent With Patient Time: Total time spent is greater than 50% in coordination of care (as documented) at patient's floor/unit and/or counseling patient:
[2021-11-29] MEDS: CARVEDILOL 12.5 MG TABLET PO SCH ×3 (08:37→21:49)
[2021-11-29] MEDS: APIXABAN 5 MG TABLET PO SCH ×2 (08:37→21:48)
[2021-11-29] MEDS: DOCUSATE SODIUM 100 MG CAPSULE PO SCH ×2 (08:37→21:49)
[2021-11-29] MEDS: SEVELAMER 800 MG TABLET PO SCH ×3 (08:43→17:22)
[2021-11-29] MEDS ORDERED: DARBEPOETIN ALFA 100 MCG/ML VIAL IV SCH (09:00)
[2021-11-29 09:34] LABS: Basophils # (Auto) 0.03 K/mcL (0.00-0.30); Basophils % (Auto) 0.6 % (0.0-2.0); Eosinophils # (Auto) 0.37 K/mcL (0.00-0.70); Eosinophils % (Auto) 6.9 % (0.0-7.0); Hematocrit 24.6 % (34.1-44.9); Hemoglobin 7.8 g/dL (11.2-15.7); Lymphocytes # (Auto) 1.31 K/mcL (1.50-4.80); Lymphocytes % (Auto) 24.4 % (15.5-49.0); Mean Cell Volume 91.8 fL (80.0-100.0); Mean Corpuscular HGB Conc 31.7 g/dL (31.0-36.0); Mean Platelet Volume 9.5 fL (7.4-10.4); Monocytes # (Auto) 0.67 K/mcL (0.10-0.90); Monocytes % (Auto) 12.5 % (1.0-12.0); Neutrophils % (Auto) 55.6 % (38.0-78.0); Platelet Count 365 K/mcL (140-440); RBC 2.68 M/mcL (3.59-5.38); Red Cell Distribution Width 14.6 % (11.5-14.5); WBC 5.4 K/mcL (4.5-11.0)
[2021-11-29 10:05] LABS: Albumin 3.5 gm/dL (3.2-5.2); Calcium 8.9 mg/dL (8.6-10.4); Phosphorous 5.4 mg/dL (2.5-4.5)
[2021-11-29 14:19] LABS: Vancomycin,Random 6.7 ug/mL
[2021-11-29] MEDS ORDERED: VANCOMYCIN 1,500 MG in 0.9 % SODIUM CHLORIDE 500 ML IV ONE (15:00)
--- NOTE | 2021-11-29 16:12 | Internal Med Progress Note ---
SUBJECTIVE Subjective Patient information: Note initiated : 11/29/21 at 4:11 pm Service Date, if different from initiated Date: [] Patient: Paige Lemos 51 y/o F admitted on 11/26/21 for Osteomyelitis. Chief Complaint: [] Principal diagnosis: Right foot osteomyelitis by MRI Interval history: Ms. Lemos is a 51 year old female with a history of hypertension, insulin- dependent diabetes mellitus, ESRD, superior mesenteric artery syndrome, sleep apnea, obesity, left internal jugular vein thrombosis currently being treated with apixaban, chronic diabetic right foot ulcer who presented to the [facility] emergency department for further evaluation of right foot pain. In the emergency department, the patient had a right foot MRI without contrast that showed findings consistent with osteomyelitis involving the second through fourth metatarsals as well as several tarsal bones. The patient was transferred to [facility] due to lack of acute dialysis coverage at [facility]. Prior to transfer, the patient reported that she received 1 dose of metronidazole IV. Upon arrival to [facility], the patient stable. She has edema around her right foot and a chronic appearing ulcer at the anterior plantar portion of her right foot. Additionally, the patient has edema up to her right knee. The patient denies fevers and chills, her main complaint is right foot pain and nausea. We discussed the plan that would include surgical bone biopsies followed by initiation of broad-spectrum antibiotics then de-escalation based on culture results. We also discussed CODE STATUS, the patient wishes to be full code. 11/27 Afebrile overnight, received hemodialysis today. Dr. Eugene with podiatry will obtain surgical biopsies this afternoon. Will start vancomycin and Zosyn prior to surgery. 11/28 Surgical biopsies planned for today, foot edema somewhat improved. 11/29 Surgical cultures from 11/28 pending. Physical exam Head: Atraumatic, normal inspection. Eyes: normal appearance, no scleral icterus. Neck: full ROM Respiratory: no respiratory distress. Cardiovascular: normal rate and rhythm, S1, S2. GI/Abdominal: soft, nontender, no guarding. Extremities: Left upper extremity hemodialysis AV fistula w/ bruit present, righ t foot edema extending to right knee, chronic appearing ulcer on plantar aspect of the right foot. Neurological: CN II-XII intact, intact motor, intact sensation. Psychiatric: normal mood. Skin: Warmth and redness of right lower extremity Constitutional Vitals: Vital Signs Temp Pulse Resp BP Pulse Ox 98.4 F 66 16 122/65 93 11/29/21 15:48 11/29/21 15:48 11/29/21 15:48 11/29/21 15:48 11/29/21 15:48 Period Temp Pulse Resp BP Sys/Toro Pulse Ox Last 24 Hr 97.4 F-100.1 F 61-81 16-18 103-158/58-81 93-99 Intake and Output 11/29/21 11/29/21 11/29/21 05:59 13:59 21:59 Intake Total 450 100 50 Output Total 400 Balance 50 100 50 Weight 98.883 kg Patient Weight 11/30/21 05:59 Weight 98.883 kg Intake & Output: Intake & Output 11/29/21 11/29/21 11/29/21 05:59 13:59 21:59 Intake Total 450 100 50 Output Total 400 Balance 50 100 50 Weight 98.883 kg Intake: IV 50 100 50 Zosyn 2.25 gm In Dextrose 5% in 50 50 50 Water 50 ml @ 100 mls/hr IV Q8H [facility] Rx#:[id number] Oral 400 Output: Void Amount 400 OBJ DATA Labs CBC & Chem 7: 11/29/21 13:28 11/29/21 08:43 Labs: Abnormal Lab Results 11/29/21 11/29/21 11/29/21 13:28 08:43 08:43 RBC 2.68 L Hgb 8.7 L 7.8 L Hct 24.6 L RDW 14.6 H [place] % (Auto) 12.5 H Lymph # (Auto) 1.31 L Sodium 128 L Chloride 95 L Carbon Dioxide 17 L Anion Gap BUN 47 H Creatinine 5.0 H* Glucose 127 H Hemoglobin A1c Phosphorus 5.4 H C-Reactive Protein Triglycerides 11/27/21 11/27/21 11/26/21 10:21 10:21 21:27 RBC Hgb 8.2 L Hct RDW [place] % (Auto) Lymph # (Auto) Sodium 127 L 125 L Chloride 91 L 86 L Carbon Dioxide Anion Gap 17.0 H BUN 74 H 87 H Creatinine 4.9 H 5.9 H* Glucose 188 H 206 H Hemoglobin A1c 10.5 H Phosphorus 5.6 H C-Reactive Protein 7.30 H Triglycerides 186 H 11/26/21 21:27 RBC 2.84 L Hgb 8.4 L Hct 25.4 L RDW [place] % (Auto) Lymph # (Auto) 1.38 L Sodium Chloride Carbon Dioxide Anion Gap BUN Creatinine Glucose Hemoglobin A1c Phosphorus C-Reactive Protein Triglycerides Meds: Medications Acetaminophen (Acetaminophen 325 Mg Tablet) 650 mg PO Q6HP PRN; Protocol PRN Reason: Per Pain Protocol/Fever > 101 Amlodipine Besylate (Amlodipine 10 Mg Tablet) 10 mg PO QPM [facility] Last Admin: 11/28/21 21:14 Dose: 10 mg Documented by: Apixaban (Apixaban 5 Mg Tablet) 2.5 mg PO BID [facility] Last Admin: 11/29/21 08:37 Dose: 2.5 mg Documented by: Carvedilol (Carvedilol 12.5 Mg Tablet) 25 mg PO BID [facility] Last Admin: 11/29/21 08:43 Dose: Not Given Documented by: Darbepoetin Daniel (Darbepoetin Daniel 100 Mcg/Ml Vial) 100 mcg IV Q7D [facility] Last Admin: 11/29/21 09:42 Dose: 100 mcg Documented by: Dextrose (Dextrose 50% 50 Ml Vial) 0 ml IV UD PRN PRN Reason: Per Sliding Scale Diagnostic Test (Pha) (Accu-Chek 1 Each Strip) 1 each FS ACHS [facility] Last Admin: 11/29/21 12:11 Dose: 1 each Documented by: Docusate Sodium (Docusate Sodium 100 Mg Capsule) 100 mg PO BID [facility] Last Admin: 11/29/21 08:37 Dose: 100 mg Documented by: Duloxetine HCl (Duloxetine 30 Mg Capsule) 60 mg PO QHS [facility] Last Admin: 11/28/21 21:14 Dose: 60 mg Documented by: Furosemide (Furosemide 40 Mg Tablet) 40 mg PO SuTuThSa@0900 [facility] Glucose (Dextrose 31 Gm Oral.Susp) 15 gm PO PRN PRN PRN Reason: Hypoglycemia Hydromorphone HCl (Hydromorphone 2 Mg Tablet) 4 mg PO Q4HP PRN; Protocol PRN Reason: Per Pain Protocol Last Admin: 11/29/21 13:22 Dose: 4 mg Documented by: Hydromorphone HCl (Hydromorphone 1 Mg/Ml Syringe) 1 mg IV Q2HP PRN; Protocol PRN Reason: Per Pain Protocol Last Admin: 11/29/21 15:08 Dose: 1 mg Documented by: Piperacillin Sod/Tazobactam (Sod 2.25 gm/ Dextrose) 50 mls @ 100 mls/hr IV Q8H [facility]; Protocol Last Infusion: 11/29/21 15:49 Dose: Infused Documented by: Albumin Human (Buminate) 12.5 gm in 50 mls @ 100 mls/hr IV Q2HP PRN PRN Reason: Hypotension Last Infusion: 11/29/21 12:05 Dose: Infused Documented by: Vancomycin HCl 1,500 mg/ (Sodium Chloride) 500 mls @ 333.3 mls/hr IV 1500 ONE Stop: 11/29/21 16:30 Last Admin: 11/29/21 15:44 Dose: 333.3 mls/hr Documented by: Insulin Glargine (Insulin Glargine, Human 1 Unit/0.01 Ml) 10 unit SQ [facility] Last Admin: 11/28/21 21:15 Dose: 10 unit Documented by: Insulin Human Lispro (Insulin Lispro 1 Unit/0.01 Ml Unit) 0 unit SQ [facility]; Protocol Last Admin: 11/29/21 12:12 Dose: Not Given Documented by: Naloxone HCl (Naloxone Hcl 0.4 Mg/Ml Vial) 0.4 mg IV Q10M PRN PRN Reason: Opiate Reversal Omeprazole (Omeprazole 20 Mg Capsule) 20 mg PO QHS [facility] Last Admin: 11/28/21 21:14 Dose: 20 mg Documented by: Ondansetron HCl (Ondansetron 4 Mg/2 Ml Vial) 4 mg IV Q6HP PRN PRN Reason: Nausea And Vomiting Methylphenidate Hcl (5 Mg Tablet) 1 dose PO [facility] Last Admin: 11/28/21 21:16 Dose: Not Given Documented by: Senna (Sennosides 1 Tablet) 2 tab PO [facility] Last Admin: 11/28/21 21:14 Dose: 2 tab Documented by: Sevelamer Carbonate (Sevelamer 800 Mg Tablet) 800 mg PO TIDCC [facility] Last Admin: 11/29/21 12:49 Dose: Not Given Documented by: Sodium Chloride (0.9 % Sodium Chloride 10 Ml Syringe) 10 ml IV Q8 [facility] Last Admin: 11/29/21 15:05 Dose: 10 ml Documented by: Vancomycin HCl (Vancomycin Per Pharmacy) 1 order IV UD [facility]; Protocol A/P Narrative A/P Narrative: Assessment: 51 year old female with a history of hypertension, insulin-dependent diabetes mellitus, ESRD, superior mesenteric artery syndrome, obesity, left internal jugular vein thrombosis currently being treated with apixaban, chronic diabetic right foot ulcer admitted for osteomyelitis of right second through fourth metatarsals as well as several tarsal bones. The patient says she has an allergy to ceftriaxone but not cefazolin. She says she has tolerated Zosyn in the past. #Osteomyelitis of right second through fourth metatarsals and several tarsal bones #Chronic right diabetic foot ulcer #Hyponatremia #Allergy to ceftriaxone, has tolerated Zosyn in the past #Insulin-dependent diabetes mellitus complicated by retinopathy and ESRD #ESRD on home hemodialysis #Left internal jugular vein thrombosis on apixaban #Hypertension #Chronic pain on opioids #Superior mesenteric artery syndrome #Depression and anxiety #Possible sleep apnea Plan -Podiatry consulted for surgical cultures, preferably bone cultures. -Continue vancomycin and Zosyn. -Follow all cultures. -Analgesics as needed. -Nephrology following for inpatient hemodialysis. -Lantus 10 units at bedtime and correction Humalog SSImedium. -Eliquis 2.5 mg twice daily. -Home amlodipine, carvedilol, Lasix, Abilify, duloxetine, methylphenidate, omeprazole, sevelamer. -Diet per podiatry. -DVT prophylaxis: On Eliquis -CODE STATUS: Full -Disposition: Anticipate home on IV antibiotics for at least 6 weeks with weekly CBC, CMP, CRP, potentially followed by suppressive oral antibiotic therapy. Consider referral to infectious disease for osteomyelitis outpatient management. Plan of Treatment: Monitor ESR and CRP while treating osteomyelitis Time Spent With Patient Time: Total time spent is greater than 50% in coordination of care (as documented) at patient's floor/unit and/or counseling patient: QUALITY VTE Deep Vein Thrombosis/Pulmonary Embolism Present on Admission: No
--- NOTE | 2021-11-29 18:02 | Nephrology Progress Note ---
SUBJECTIVE Subjective Patient information: Note initiated : 11/29/21 at 5:51 pm Service Date, if different from initiated Date: [] Patient: Paige Lemos 51 y/o F admitted on 11/26/21 for Osteomyelitis. Chief Complaint: [Right foot pain] Principal diagnosis: Right foot osteomyelitis by MRI Interval history: Yesterday had bone and soft tissue Bx for culture and sensitity of right mrtatasal and tarsal bones. Currently on Vanco and PIP/Apurva pending ID In the past., MSSA and Coag neg staph have been cultured from right foot wounds. While the "standard of care" is prolonded IV ABx via a picc line, this is ill-advised in this patient as her only arm remaining for future IV access for her dialysis, as she is only 51 yrs old and could require HD for quite some time, is the right ARM. Th left has a functioning left upper arm AVF which has had revisions in the past so eventually will need to be replaced AND the Left IF vein is thrombosed. This forces us to preserve the RIGHT arm for future vascular access. 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 This eliminates the need for a picc line which could have catastrophic complications of loosing the right arm for future AV access in a dialysis patient. Therefore, I propose the following plan of care: 1. CM to arrange insurance to provide for infusion of vancomycin at home by the patient on a weekly, or if levels dictate a twice weekly, schedule. 2. As the patient already draws blood for monthly lab testing as part of her home HD program, she could send a trough/pre-HD blood sample weekly to monitor t herapeutic dosing of vancomycin (this is not part of the Medicare bundle and will have to be sent to [facility] as an outpatient lab). 3. I will monitor the lab work weekly and make adjustments as needed. 4. Dr Eugene will monitor her foot in the outpatient clinic 5. If gram negative or anerobic coverage is needed, this could be done with oral levoquin or moxifloxin for Gm neg coverage and metronidazole if anaerobic coverage is desired. 6. A baseline WBC, ESR and CRP should be obtained and monitored q month at a minimum. I believe this is the best way to go to best serve the patient. HD note 11/29/2021: Seen and examined on HD Uneventful 4.5 hr treatment 4 kg U/F 100 ug Aranesp given 2000 U heparin bolus only Albumin 12.5 gm IV a2 prn Pertinent ROS: Nothing new Additional PMFSH (Level 3 Only): N/A Constitutional Vitals: Vital Signs Temp Pulse Resp BP Pulse Ox 36.9 C 66 16 122/65 93 11/29/21 15:48 11/29/21 15:48 11/29/21 15:48 11/29/21 15:48 11/29/21 15:48 Period Temp Pulse Resp BP Sys/Toro Pulse Ox Last 24 Hr 36.3 C-37.8 C 61-81 16-18 103-158/58-81 93-99 Intake and Output 11/29/21 11/29/21 11/29/21 05:59 13:59 21:59 Intake Total 450 100 550 Output Total 400 Balance 50 100 550 Weight 98.883 kg Patient Weight 11/30/21 05:59 Weight 98.883 kg Intake & Output: Intake & Output 11/29/21 11/29/21 11/29/21 05:59 13:59 21:59 Intake Total 450 100 550 Output Total 400 Balance 50 100 550 Weight 98.883 kg Intake: IV 50 100 550 Zosyn 2.25 gm In Dextrose 5% in 50 50 50 Water 50 ml @ 100 mls/hr IV Q8H [facility] Rx#:[id number] Vancomycin 1,500 mg In Sodium 500 Chloride 0.9% 500 ml @ 333.3 mls/hr IV 1500 ONE Rx#: [id number] Oral 400 Output: Void Amount 400 General appearance: cooperative and no acute distress Head Additional comments: Puffy face Eye Pupils: Present irregular Additional comments: Opacified OS lens ENT ENT exam: Present mucous membranes moist Neck Neck exam: Absent meningismus Respiratory Respiratory exam: Present normal respiratory exam and CTAB Cardiovascular Cardiovascular exam: Present +S1 and +S2; Absent +S3 or tachycardia GI/Abdominal GI/Abdominal exam: Present soft and hypoactive bowel sounds Extremities Exam Extremities exam: Present pedal edema; Absent calf tenderness Neurological Exam Neurological exam: Present abnormal gait, alert, CN II-XII intact (Blind OS) and oriented X3 Psychiatric Psychiatric exam: Present normal affect and normal mood Skin Skin exam: Present normal color; Absent pallor or petechiae A/P Assessment and plan (1) Diabetic foot ulcer with osteomyelitis: Assessment and plan: So far, cultures negative Vanco and pip/apurva for now See D/C plan below Plan: 1. CM to arrange insurance to provide for infusion of vancomycin at home by the patient on a weekly, or if levels dictate a twice weekly, schedule. 2. As the patient already draws blood for monthly lab testing as part of her home HD program, she could send a trough/pre-HD blood sample weekly to monitor therapeutic dosing of vancomycin (this is not part of the Medicare bundle and will have to be sent to [facility] as an outpatient lab). 3. I will monitor the lab work weekly and make adjustments as needed. 4. Dr Eugene will monitor her foot in the outpatient clinic 5. If gram negative or anerobic coverage is needed, this could be done with ora l levoquin or moxifloxin for Gm neg coverage and metronidazole if anaerobic coverage is desired. 6. A baseline WBC, ESR and CRP should be obtained and monitored q month at a minimum. Status: Chronic (2) ESRD (end stage renal disease) on dialysis: Plan: Q MWF while in hospital Status: Chronic Comment: Q TTHFSun (4 tx per week) is her home HD schedule (3) Internal jugular (IJ) vein thromboembolism, acute: Assessment and plan: Suspect IJ catheter related Hence desire to AVOID any furthe PICC or CV catheters in right arm Plan: Continue Apixaban for 3 months and reassess Left IJ vessel by doppler U/S Status: Acute Comment: Found inadvertently at time of left upper arm AVF U/S study (4) Anemia due to end stage renal disease: Assessment and plan: Aranesp 100 ug IV q Thursday with inpatient HD due to increased blood loss to lab Status: Chronic Comment: As above (5) Secondary hyperparathyroidism of renal origin: Assessment and plan: PO4 adequately controlled with Sevelemar Check intact PTH on thursday12/02/2021 Status: Chronic Comment: PTH improved from 133 to 65 phos is normal calcium is at upper limit of normal ct renvela and cholecalciferol will monitor and optimize meds if needed Plan As outlined above Narrative A/P Narrative: As above. Care and plan discussed with HD staff, Home HD staff, CM and Hospital medicine staff Plan of Treatment: Monitor ESR and CRP while treating osteomyelitis Time Spent With Patient Time: Total time spent is greater than 50% in coordination of care (as documented) at patient's floor/unit and/or counseling patient: Total time spent with greater than 50% in coordination of care (as documented) at patient's floor/unit and/or counseling patient:: 35 - 50 minutes
[2021-11-29] MEDS: OMEPRAZOLE 20 MG CAPSULE PO SCH (21:48)
[2021-11-29] MEDS: ARIPIPRAZOLE 5 MG TABLET PO SCH (21:48)
[2021-11-29] MEDS: amLODIPine 10 MG TABLET PO SCH (21:49)
[2021-11-29] MEDS: SENNOSIDES 1 TABLET PO SCH (21:49)
[2021-11-29] MEDS: DULoxetine 30 MG CAPSULE PO SCH (21:49)
[2021-11-29] MEDS: INSULIN GLARGINE, HUMAN 1 UNIT/0.01 ML SQ SCH (21:49)
[2021-11-30] MEDS: HYDROmorphone 1 MG/ML SYRINGE IV PRN ×6 (01:54→18:48)
[2021-11-30] MEDS: 0.9 % SODIUM CHLORIDE 10 ML SYRINGE IV SCH ×7 (01:54→21:34)
[2021-11-30] MEDS: HYDROmorphone 2 MG TABLET PO PRN ×5 (03:05→20:38)
[2021-11-30] MEDS: PIPERACILLIN SODIUM/TAZOBACTAM 2.25 GM in DEXTROSE 5% IN WATER 50 ML IV SCH (05:54)
[2021-11-30] MEDS: INSULIN LISPRO 1 UNIT/0.01 ML UNIT SQ SCH ×4 (07:12→20:41)
[2021-11-30] MEDS: CARVEDILOL 12.5 MG TABLET PO SCH ×2 (08:33→20:54)
[2021-11-30] MEDS: APIXABAN 5 MG TABLET PO SCH ×2 (08:33→20:55)
[2021-11-30] MEDS: DOCUSATE SODIUM 100 MG CAPSULE PO SCH ×2 (08:33→20:54)
[2021-11-30] MEDS: FUROSEMIDE 40 MG TABLET PO SCH (08:33)
[2021-11-30] MEDS: SEVELAMER 800 MG TABLET PO SCH ×3 (08:33→16:45)
[2021-11-30] MEDS ORDERED: LEVOFLOXACIN 750 MG TABLET PO ONE (09:00)
--- NOTE | 2021-11-30 10:36 | Nephrology Progress Note ---
SUBJECTIVE Subjective Patient information: Note initiated : 11/30/21 at 10:34 am Service Date, if different from initiated Date: [] Patient: Paige Lemos 51 y/o F admitted on 11/26/21 for Osteomyelitis. Chief Complaint: [right foot pain] Principal diagnosis: Right foot osteomyelitis by MRI Interval history: Home HD schedule qT, TH, F, SUN In hospital HD qMWF Aranesp 100 ug IV q Thursday with HD Renvela 800 to 1600 mg po TID with meals depending upon serum Ca, PO4 Blood, bone gram stain, aerobic, anaerobic and funcal cultures all negative so far Nasal swab neg for MRSA Vancomycin HCl (Vancomycin Per Pharmacy) 1 order IV UD GIANNA; Protocol Levofloxacin (Levofloxacin 500 Mg Tablet) 500 mg PO Q48H GIANNA; Protocol Working on best solution for trial of outpatient antibiotics for a patient with UNIQUE characteristic (ESRD and Home HD) 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 Pertinent ROS: N/A Additional PMFSH (Level 3 Only): N/A Constitutional Vitals: Vital Signs Temp Pulse Resp BP Pulse Ox 36.6 C 67 18 122/69 97 11/30/21 07:39 11/30/21 07:39 11/30/21 07:39 11/30/21 07:39 11/30/21 07:39 Period Temp Pulse Resp BP Sys/Toro Pulse Ox Last 24 Hr 36.3 C-36.9 C 61-81 16-18 103-147/58-81 93-97 Intake and Output 11/29/21 11/30/21 11/30/21 21:59 05:59 13:59 Intake Total 770 1050 50 Output Total 100 Balance 770 950 50 Weight 97.069 kg Intake & Output: Intake & Output 11/29/21 11/30/21 11/30/21 21:59 05:59 13:59 Intake Total 770 1050 50 Output Total 100 Balance 770 950 50 Weight 97.069 kg Intake: IV 550 50 50 Zosyn 2.25 gm In Dextrose 5% in 50 50 50 Water 50 ml @ 100 mls/hr IV Q8H GIANNA Rx#:[id number] Vancomycin 1,500 mg In Sodium 500 Chloride 0.9% 500 ml @ 333.3 mls/hr IV 1500 ONE Rx#: [id number] Oral 220 1000 Output: Void Amount 100 Other: Meal Dinner Percent of Meal Consumed 50% Urine Appearance Clear Urine Color Bright Yellow # Bowel Movements 1 General appearance: no acute distress and obese Head Additional comments: Still some swelling despite attempts at increased U/F goal Eye Eye exam: Present periorbital swelling; Absent periorbital tenderness Additional comments: opacified left lens ENT ENT exam: Present mucous membranes dry Neck Neck exam: Absent meningismus Respiratory Respiratory exam: Present normal respiratory exam Cardiovascular Cardiovascular exam: Present normal rate and rhythm, +S1 and +S2 Additional comments: Known Left IJ non-occlusive thrombus GI/Abdominal GI/Abdominal exam: Present diminished bowel sounds; Absent guarding Extremities Exam Additional comments: Left arm edema/swelling with patent AVF Back Exam Back exam: Absent rash noted Neurological Exam Neurological exam: Present alert and CN II-XII intact (blind os) Psychiatric Psychiatric exam: Present anxious Skin Skin exam: Absent mottled, pallor, petechiae or vesicles A/P Narrative A/P Narrative: Assessment and plan (1) Diabetic foot ulcer with osteomyelitis: Assessment and plan: So far, cultures negative Vanco and pip/apurva for now See D/C plan below Plan: 1. CM to arrange insurance to provide for infusion of vancomycin at home by the patient on a weekly, or if levels dictate a twice weekly, schedule. 2. As the patient already draws blood for monthly lab testing as part of her home HD program, she could send a trough/pre-HD blood sample weekly to monitor therapeutic dosing of vancomycin (this is not part of the Medicare bundle and will have to be sent to [facility] as an outpatient lab). 3. I will monitor the lab work weekly and make adjustments as needed. 4. Dr Eugene will monitor her foot in the outpatient clinic 5. If gram negative or anerobic coverage is needed, this could be done with oral levoquin or moxifloxin for Gm neg coverage and metronidazole if anaerobic coverage is desired. 6. A baseline WBC, ESR and CRP should be obtained and monitored q month at a minimum. (2) ESRD (end stage renal disease) on dialysis: Plan: Q MWF while in hospital (3) Internal jugular (IJ) vein thromboembolism, acute: Assessment and plan: Suspect IJ catheter related Hence desire to AVOID any furthe PICC or CV catheters in right arm Plan: Continue Apixaban for 3 months and reassess Left IJ vessel by doppler U/S (4) Anemia due to end stage renal disease: Assessment and plan: Aranesp 100 ug IV q Thursday with inpatient HD due to increased blood loss to lab (5) Secondary hyperparathyroidism of renal origin: Assessment and plan: PO4 adequately controlled with Sevelemar Check intact PTH on thursday12/02/2021 Plan of Treatment: Monitor ESR and CRP while treating osteomyelitis Time Spent With Patient Time: Total time spent is greater than 50% in coordination of care (as documented) at patient's floor/unit and/or counseling patient:
--- NOTE | 2021-11-30 13:15 | General Surgery Consult Note ---
HPI Data of Consult Patient: new to practice Consult date: 11/29/21 Requesting physician: Dawson Eugene Primary Care Provider: Bridger Benites MD Family Provider: Patient seen for evaluation of DFU anterior lateral plantar forefoot. I saw the patient last evening and reassessed today. Examined her DFU site wound. S/P Bone Biopsy to r/o Osteomyelitis. MRI Right foot suggests osteomyelitis of 2 through 4th metatarsal / tarsal bones. Reviewed report. Could not see pictures, Patient with ESRD,HD, secondary hyperparathyroidism. 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 She is RIGHT handed. She has a LEFT arm AVF for hemodialysis. There is edema of LEFT UE and h.o LEFT jugular vein thrombosis. She is NON smoker and NON alcoholic. Consult Narrative Chief complaint: DFU under RIGHT anterior forfoot, Failed out patient treatment. Reason for consult: Evaluation for wound manangement, RIGHT plantar DFU Stage 3. History of present illness: Patient was treated with PO antibiotics, later admitted for IV antibiotics, imaging studies and biopsies of bone . cc:: CC: Adarsh Rodrigues MD EENT Eyes: Present other (Blinedness of LEFT eye.Enophtalmos and opacified cornea.) Musculoskeletal Musculoskeletal: Present other (H/O Right 2nd toe amputation and evolving changes of Charcot arthropathy, ) Integumentary Integumentary: Present wounds (DFU RIGHT plantar anterior lateral forefoot, Packed in OR s/o debridement and bone biopsy.) Neurological Neurological: Present other (Diabetes and peripheral neuropathy of feet. ) Endocrine Endocrine: Present other (IDDM since age of12 years) PFSH PFS All Active Problems Apnea (Chronic) Blindness of one eye (Chronic) Cataract (Chronic) Chronic pain (Chronic) Diabetes mellitus with renal manifestation (Chronic) DM (diabetes mellitus), type 1 with neurological complications (Chronic) Hypothyroidism (Chronic) History of kidney stones (Chronic) assisted current use of insulin (Chronic) Lumbar disc disease (Chronic) Microhematuria (Chronic) Nephrolithiasis (Chronic 12/09/12) Overweight (Chronic 12/09/12) Peripheral neuropathy (Chronic 12/09/12) Polyneuropathy in diabetes (Chronic) Proteinuria (Chronic) Diabetic retinopathy associated with diabetes mellitus due to underlying condition (Chronic) SOB (shortness of breath) (Chronic) MRSA (methicillin resistant Staphylococcus aureus) (Chronic) Vitamin D deficiency (Chronic 01/18/13) Hypertensive renal disease (Chronic) Secondary hyperparathyroidism of renal origin (Chronic) Low back pain (Chronic) Hypertension, essential, benign (Chronic) Right bundle branch block (RBBB) determined by electrocardiography (Chronic) Gastroparesis (Chronic) Chronic narcotic use (Chronic) At risk for allergic reaction to medication (Chronic) ESRD on hemodialysis (Chronic) Anemia due to end stage renal disease (Chronic ~12/09/12) Cervical mass (Chronic) Celiac artery stenosis (Chronic) Abdominal pain (Chronic) UTI (urinary tract infection) (Chronic) Hyperlipidemia (Chronic) RUQ abdominal pain (Chronic) Arterial obstructive disease (Chronic) Macular degeneration (Chronic) History of stroke (Chronic) Anxiety disorder (Chronic) Depression (Chronic) Sleep apnea (Chronic) Muscle pain (Chronic) Muscle weakness (Chronic) Kidney cyst, acquired (Chronic) Hematuria (Chronic) SMAS (superior mesenteric artery syndrome) (Chronic) Renal disease (Chronic) Hypoglycemia unawareness associated with type 1 diabetes mellitus (Acute) Diabetic infection of right foot (Acute) V-tach (Acute) Type 1 diabetes mellitus with end-stage renal disease (Acute) Median arcuate ligament syndrome (Acute) Internal jugular (IJ) vein thromboembolism, acute (Acute) Foot ulcer (Acute) ESRD (end stage renal disease) on dialysis (Chronic) Complication of arteriovenous dialysis fistula (Acute) Dialysis complication (Acute) Hypotension of hemodialysis (Acute) Diabetic foot ulcer with osteomyelitis (Chronic) Medical History Abdominal pain Abdominal pain Abnormal weight gain Acidosis Anemia due to end stage renal disease (~12/09/12) As above Anxiety disorder Apnea Arterial obstructive disease At risk for allergic reaction to medication dystonic reactions to Reglan (metoclopramide), Compazine (prochlorperazine) and Inapsine (droperidol) Bleeding pseudoaneurysm of left brachiocephalic AV fistula Blindness of one eye left Calf pain Cataract Celiac artery stenosis Cervical mass Chest pain Chest pain Chronic narcotic use for neuropathy; Dr. Shyam Harper, [place] Pain Chronic pain Complications, dialysis, catheter, mechanical Constipation Cystitis Depression Diabetes mellitus with renal manifestation Diabetic retinopathy associated with diabetes mellitus due to underlying condition DM (diabetes mellitus), type 1 with neurological complications Dyspnea Edema of lower extremity pitted, severity estimated LT: 1+ and RT: 2+ ESRD on hemodialysis Flank pain Fluid overload Foot ulcer Fracture, foot Gastroparesis History of kidney stones History of stroke X 2 Hyperkalemia Hyperlipidemia Hypertension, essential, benign Hypertensive renal disease BP near goal, good BP readings at home ct current meds follow low sodium diet will follow and optimize if elevated next visit Hypothyroidism no longer on meds 10-12-2018 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 Low back pain hx of laser disk Lumbar disc disease Macular degeneration Microhematuria MRSA (methicillin resistant Staphylococcus aureus) abscess 2006 Muscle pain Muscle weakness Nephrolithiasis (12/09/12) Nephropathy Orthopnea Overweight (12/09/12) Palpitation Pelvic pain Peripheral neuropathy (12/09/12) Pneumonia Polyneuropathy in diabetes Proteinuria Pyelonephritis Renal disease END STAGE Retinal detachment Right bundle branch block (RBBB) determined by electrocardiography RUQ abdominal pain Secondary hyperparathyroidism of renal origin PTH improved from 133 to 65 phos is normal calcium is at upper limit of normal ct renvela and cholecalciferol will monitor and optimize meds if needed Sepsis Urosepsis was noted in chart note. Shoulder pain Sleep apnea SOB (shortness of breath) Staphylococcus aureus bacteremia UTI (lower urinary tract infection) UTI (urinary tract infection) UTI (urinary tract infection) UTI (urinary tract infection) Vision changes Vitamin D deficiency (01/18/13) Vitreous hemorrhage Vomiting Weakness Weakness of right lower extremity Surgical History History of appendectomy History of arthroscopy of right shoulder History of section History of cholecystectomy History of foot surgery History of hysterectomy with oophorectomy History of shoulder surgery Right shoulder. History of surgery Celiac Plexus Block Lt. L1 w/sed 10/27/2018 S/P arteriovenous (AV) fistula creation (02/10/18) Family History Father Cerebral infarction Essential hypertension Mother Type 1 diabetes mellitus Social History household members: significant other lives independently: Yes marital status: other details: engaged occupational status: disabled physical activity: none smoking status: Never smoker alcohol intake frequency: former alcohol drinker substance use type: does not use seatbelt use: always MEDS/ALLERGIES Home Medications and Allergies Home Medications Medication Instructions Recorded Confirmed Type docusate sodium 100 mg capsule 100 mg PO DAILYP PRN 12/05/19 11/26/21 History (Colace) bisacodyl 5 mg tablet,delayed 10 mg PO QDAY tab 03/20/20 11/26/21 History release (Dulcolax (bisacodyl)) clobetasol 0.05 % scalp solution 1 applic TOPICAL QDAY 03/20/20 11/26/21 History diphenhydramine HCl 25 mg capsule 25 - 75 mg PO Q6H PRN cap 03/20/20 11/26/21 History (Benadryl) promethazine 25 mg tablet 25 - 50 mg PO Q6HP PRN 03/20/20 11/26/21 History insulin lispro 100 unit/mL See Rx Instructions .ROUTE 11/09/20 11/26/21 History subcutaneous solution .COMPLEX ml duloxetine 60 mg capsule,delayed 60 mg PO QHS 06/26/21 11/26/21 History release methylphenidate HCl 5 mg tablet 5 mg PO HS 06/26/21 11/26/21 History omeprazole 20 mg capsule,delayed 20 mg PO QHS 06/26/21 11/26/21 History release ondansetron HCl 8 mg tablet 8 mg PO Q8H PRN 06/26/21 11/26/21 History sevelamer carbonate 800 mg tablet 800 mg PO TIDCC 06/26/21 11/26/21 History apixaban 2.5 mg tablet 2.5 mg PO BID #60 tab 10/29/21 11/26/21 Rx naloxone 4 mg/actuation nasal 4 mg INTRANASAL Q2M PRN #1 ea 11/18/21 11/26/21 Rx spray (Narcan) amlodipine 10 mg tablet 10 mg PO QPM #90 tab 11/20/21 11/26/21 Rx carvedilol 25 mg tablet 25 mg PO BID #180 tab 11/20/21 11/26/21 Rx hydromorphone 4 mg tablet 4 mg PO Q6H PRN #240 tab MDD 8 11/20/21 11/26/21 Rx aripiprazole 5 mg tablet (Abilify) 5 mg PO QHS #30 tab 11/22/21 11/26/21 Rx insulin glargine 100 unit/mL (3 See Rx Instructions .ROUTE .COMPLEX 11/26/21 11/26/21 History mL) subcutaneous pen (Lantus Solostar U-100 Insulin) furosemide 40 mg tablet 1 tab PO BID 11/29/21 11/29/21 History Allergies Allergy/AdvReac Type Severity Reaction Status Date / Time aspirin Allergy Severe Anaphylaxis Verified 11/26/21 22:42 gabapentin Allergy Severe Anaphylaxis Verified 11/26/21 22:42 honey Allergy Severe Anaphylaxis Verified 11/26/21 22:42 metoclopramide Allergy Severe Anaphylaxis Verified 11/26/21 22:42 prochlorperazine Allergy Severe Anaphylaxis Verified 11/26/21 22:42 sumatriptan Allergy Severe Anaphylaxis Verified 11/26/21 22:42 tiagabine [From Gabitril] Allergy Severe Anaphylaxis Verified 11/26/21 22:42 adhesive Allergy Mild Blister Verified 11/28/21 13:32 ceftriaxone [From Rocephin] Allergy Mild Hives Verified 11/28/21 13:32 Penicillins Allergy Mild Hives Verified 11/28/21 13:32 topiramate [From Topamax] Allergy Mild Rash Verified 11/26/21 22:42 droperidol [From INAPSINE] AdvReac Severe Seizure Verified 11/28/21 13:32 ketamine AdvReac Intermediate Anxiety Verified 11/26/21 22:42 hydroxyzine AdvReac Mild Confusion Verified 11/26/21 22:42 morphine AdvReac Mild Blister Verified 11/28/21 13:32 Physical Examination Vital Signs Vital signs: Temp Pulse Resp BP Pulse Ox 97.8 F 69 16 126/74 96 11/30/21 11:36 11/30/21 11:36 11/30/21 11:36 11/30/21 11:36 11/30/21 11:36 General physical appearance General physical exam: well developed, well nourished, no distress, no pain and obese Eyes Eye exam: other (opacified LEFT cornea. Blindness LEFT eye.) ENT ENT exam: normal pinna, normal nares, normal mucosa and no congestion Head Head exam IM: Present atraumatic and normocephalic Neck Neck exam: other (Fullness LEFT neck. H/O LEFT jugular thromboembolism in past) Cardiovascular Cardiovascular exam IM: Present normal rate and rhythm Respiratory Respiratory exam: normal expansion, normal respiratory effort and clear to auscultation Abdomen Abdomen: Present soft, non tender and bowel sounds Integumentary Integumentary: Present no rash, no growths and no abnormal pigmentation Neurologic Neurologic: Present normal coordination and other (Peripheral neuropathy) Musculoskeletal Musculoskeletal: Present other (Prioe RIGHT 2nd toe amputation.) Psychiatric Psychiatric: Present oriented to time, oriented to person, oriented to place, speech is normal and memory intact Results Labs Result diagrams: 11/29/21 13:28 11/29/21 08:43 Labs: Abnormal lab results 11/29/21 Range/Units 13:28 Hgb 8.7 L (11.2-15.7) g/dL All other labs normal. A/P Narrative A/P Narrative: Assessment: ESRD. Regular Hemodialysis HTN H/o Thrombosis of LEFT IJV LEFT arm AVF for dialysis. IDDM DFU under RIGHT plantar anterior / lateral forefoot. Blindness LEFT eye. 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 NO retinopathy I spoke with patient and her at length Spoke with Dr. Rodrigues, Hospitalist Physician Plan: Continue on going HD and IV antibiotics. Await bone biopsy reports. OFF loading of foot with Darco wedge shoe. FOOTWEAR recommendations per Dr. Eugene. Heel WB for pivot during transfers and ambulation. Cane or walker for ambulation. Monitor progress with CRP and Sed rarte. Plan of Treatment: Monitor ESR and CRP while treating osteomyelitis Time Spent With Patient Time: Total time spent is greater than 50% in coordination of care (as documented) at patient's floor/unit and/or counseling patient: Total time spent with greater than 50% in coordination of care (as documented) at patient's floor/unit and/or counseling patient:: 50 - 70 minutes (Time spent in going over review of EHR, reviewed investigations performed and input from treating physicians.)
[2021-11-30] MEDS: metroNIDAZOLE 500 MG TABLET PO SCH ×2 (14:28→21:34)
--- NOTE | 2021-11-30 15:18 | Internal Med Progress Note ---
SUBJECTIVE Subjective Patient information: Note initiated : 11/30/21 at 3:16 pm Service Date, if different from initiated Date: [] Patient: Paige Lemos 51 y/o F admitted on 11/26/21 for Osteomyelitis. Chief Complaint: [] Principal diagnosis: Right foot osteomyelitis by MRI Interval history: Ms. Lemos is a 51 year old female with a history of hypertension, insulin- dependent diabetes mellitus, ESRD, superior mesenteric artery syndrome, sleep apnea, obesity, left internal jugular vein thrombosis currently being treated with apixaban, chronic diabetic right foot ulcer who presented to the [facility] emergency department for further evaluation of right foot pain. In the emergency department, the patient had a right foot MRI without contrast that showed findings consistent with osteomyelitis involving the second through fourth metatarsals as well as several tarsal bones. The patient was transferred to [facility] due to lack of acute dialysis coverage at [facility]. Prior to transfer, the patient reported that she received 1 dose of metronidazole IV. Upon arrival to [facility], the patient stable. She has edema around her right foot and a chronic appearing ulcer at the anterior plantar portion of her right foot. Additionally, the patient has edema up to her right knee. The patient denies fevers and chills, her main complaint is right foot pain and nausea. We discussed the plan that would include surgical bone biopsies followed by initiation of broad-spectrum antibiotics then de-escalation based on culture results. We also discussed CODE STATUS, the patient wishes to be full code. 11/27 Afebrile overnight, received hemodialysis today. Dr. Eugene with podiatry will obtain surgical biopsies this afternoon. Will start vancomycin and Zosyn prior to surgery. 11/28 Surgical biopsies planned for today, foot edema somewhat improved. 11/29 Surgical cultures from 11/28 pending. 11/30 Surgical cultures showing no growth to date and unlikely to grown any organisms. Tentative plan for empiric antibiotics is IV Vancomycin and oral Levofloxacin and Metronidazole. Started Levofloxacin and Metronidazole to assess GI tolerance especially to Metronidazole. Discontinued Zosyn. Physical exam Head: Atraumatic, normal inspection. Eyes: normal appearance, no scleral icterus. Neck: full ROM Respiratory: no respiratory distress. Cardiovascular: normal rate and rhythm, S1, S2. GI/Abdominal: soft, nontender, no guarding. Extremities: Left upper extremity hemodialysis AV fistula w/ bruit present, right foot edema extending to right knee, chronic appearing ulcer on plantar aspect of the right foot. Neurological: CN II-XII intact, intact motor, intact sensation. Psychiatric: normal mood. Skin: Warmth and redness of right lower extremity Constitutional Vitals: Vital Signs Temp Pulse Resp BP Pulse Ox 97.8 F 69 16 126/74 96 11/30/21 11:36 11/30/21 11:36 11/30/21 11:36 11/30/21 11:36 11/30/21 11:36 Period Temp Pulse Resp BP Sys/Toro Pulse Ox Last 24 Hr 97.7 F-98.4 F 64-69 16-18 122-147/65-75 93-97 Intake and Output 11/30/21 11/30/21 11/30/21 05:59 13:59 21:59 Intake Total 1050 50 Output Total 100 Balance 950 50 Intake & Output: Intake & Output 11/30/21 11/30/21 11/30/21 05:59 13:59 21:59 Intake Total 1050 50 Output Total 100 Balance 950 50 Intake: IV 50 50 Zosyn 2.25 gm In Dextrose 5% in 50 50 Water 50 ml @ 100 mls/hr IV Q8H [facility] Rx#:[id number] Oral 1000 Output: Void Amount 100 Other: Meal Lunch Percent of Meal Consumed 100% Urine Appearance Clear Urine Color Bright Yellow # Bowel Movements 1 OBJ DATA Labs CBC & Chem 7: 11/29/21 13:28 11/29/21 08:43 Labs: Abnormal Lab Results 11/29/21 11/29/21 11/29/21 13:28 08:43 08:43 RBC 2.68 L Hgb 8.7 L 7.8 L Hct 24.6 L RDW 14.6 H Stephenson % (Auto) 12.5 H Lymph # (Auto) 1.31 L Sodium 128 L Chloride 95 L Carbon Dioxide 17 L BUN 47 H Creatinine 5.0 H* Glucose 127 H Phosphorus 5.4 H Meds: Medications Acetaminophen (Acetaminophen 325 Mg Tablet) 650 mg PO Q6HP PRN; Protocol PRN Reason: Per Pain Protocol/Fever > 101 Amlodipine Besylate (Amlodipine 10 Mg Tablet) 10 mg PO QPM [facility] Last Admin: 11/29/21 21:49 Dose: 10 mg Documented by: Apixaban (Apixaban 5 Mg Tablet) 2.5 mg PO BID [facility] Last Admin: 11/30/21 08:33 Dose: 2.5 mg Documented by: Carvedilol (Carvedilol 12.5 Mg Tablet) 25 mg PO BID [facility] Last Admin: 11/30/21 08:33 Dose: 25 mg Documented by: Darbepoetin Daniel (Darbepoetin Daniel 100 Mcg/Ml Vial) 100 mcg IV Q7D [facility] Last Admin: 11/29/21 09:42 Dose: 100 mcg Documented by: Dextrose (Dextrose 50% 50 Ml Vial) 0 ml IV UD PRN PRN Reason: Per Sliding Scale Diagnostic Test (Pha) (Accu-Chek 1 Each Strip) 1 each FS ACHS [facility] Last Admin: 11/30/21 11:57 Dose: 1 each Documented by: Docusate Sodium (Docusate Sodium 100 Mg Capsule) 100 mg PO BID [facility] Last Admin: 11/30/21 08:33 Dose: 100 mg Documented by: Duloxetine HCl (Duloxetine 30 Mg Capsule) 60 mg PO QHS [facility] Last Admin: 11/29/21 21:49 Dose: 60 mg Documented by: Furosemide (Furosemide 40 Mg Tablet) 40 mg PO SuTuThSa@0900 [facility] Last Admin: 11/30/21 08:33 Dose: 40 mg Documented by: Glucose (Dextrose 31 Gm Oral.Susp) 15 gm PO PRN PRN PRN Reason: Hypoglycemia Hydromorphone HCl (Hydromorphone 2 Mg Tablet) 4 mg PO Q4HP PRN; Protocol PRN Reason: Per Pain Protocol Last Admin: 11/30/21 11:00 Dose: 4 mg Documented by: Hydromorphone HCl (Hydromorphone 1 Mg/Ml Syringe) 1 mg IV Q2HP PRN; Protocol PRN Reason: Per Pain Protocol Last Admin: 11/30/21 14:29 Dose: 1 mg Documented by: Albumin Human (Buminate) 12.5 gm in 50 mls @ 100 mls/hr IV Q2HP PRN PRN Reason: Hypotension Last Infusion: 11/29/21 12:05 Dose: Infused Documented by: Insulin Glargine (Insulin Glargine, Human 1 Unit/0.01 Ml) 10 unit SQ [facility] Last Admin: 11/29/21 21:49 Dose: 10 unit Documented by: Insulin Human Lispro (Insulin Lispro 1 Unit/0.01 Ml Unit) 0 unit SQ ACHS [facility]; Protocol Last Admin: 11/30/21 11:56 Dose: 2 unit Documented by: Levofloxacin (Levofloxacin 500 Mg Tablet) 500 mg PO Q48H [facility]; Protocol Metronidazole (Metronidazole 500 Mg Tablet) 500 mg PO Q8 [facility]; Protocol Last Admin: 11/30/21 14:28 Dose: 500 mg Documented by: Naloxone HCl (Naloxone Hcl 0.4 Mg/Ml Vial) 0.4 mg IV Q10M PRN PRN Reason: Opiate Reversal Omeprazole (Omeprazole 20 Mg Capsule) 20 mg PO QHS [facility] Last Admin: 11/29/21 21:48 Dose: 20 mg Documented by: Ondansetron HCl (Ondansetron 4 Mg/2 Ml Vial) 4 mg IV Q6HP PRN PRN Reason: Nausea And Vomiting Methylphenidate Hcl (5 Mg Tablet) 1 dose PO [facility] Last Admin: 11/29/21 21:22 Dose: Not Given Documented by: Senna (Sennosides 1 Tablet) 2 tab PO [facility] Last Admin: 11/29/21 21:49 Dose: 2 tab Documented by: Sevelamer Carbonate (Sevelamer 800 Mg Tablet) 800 mg PO TIDCC [facility] Last Admin: 11/30/21 11:57 Dose: 800 mg Documented by: Sodium Chloride (0.9 % Sodium Chloride 10 Ml Syringe) 10 ml IV Q8 [facility] Last Admin: 11/30/21 14:28 Dose: 10 ml Documented by: Vancomycin HCl (Vancomycin Per Pharmacy) 1 order IV UD [facility]; Protocol A/P Narrative A/P Narrative: Assessment: 51 year old female with a history of hypertension, insulin-dependent diabetes mellitus, ESRD, superior mesenteric artery syndrome, obesity, left internal jugular vein thrombosis currently being treated with apixaban, chronic diabetic right foot ulcer admitted for osteomyelitis of right second through fourth metatarsals as well as several tarsal bones. The patient says she has an allergy to ceftriaxone but not cefazolin. She says she has tolerated Zosyn in the past. #Osteomyelitis of right second through fourth metatarsals and several tarsal bones #Chronic right diabetic foot ulcer #Hyponatremia #Allergy to ceftriaxone, has tolerated Zosyn in the past #Insulin-dependent diabetes mellitus complicated by retinopathy and ESRD #ESRD on home hemodialysis #Left internal jugular vein thrombosis on apixaban #Hypertension #Chronic pain on opioids #Superior mesenteric artery syndrome #Depression and anxiety Plan -Podiatry consulted for surgical cultures, preferably bone cultures. -Vancomycin IV per pharmacy. -Levofloxacin and Metronidazole. -Follow all cultures. -Analgesics as needed, wean IV Dilaudid. -No PICC line due to ESRD. -Nephrology following for inpatient hemodialysis. -Lantus 10 units at bedtime and correction Humalog SSImedium. -Eliquis 2.5 mg twice daily. -Home amlodipine, carvedilol, Lasix, Abilify, duloxetine, methylphenidate, ome prazole, sevelamer. -Diet per podiatry. -DVT prophylaxis: On Eliquis -CODE STATUS: Full -Disposition: Anticipate home on empiric antibiotics for at least 6 weeks, potentially followed by suppressive oral antibiotic therapy. Follow up with podiatry after discharge. Consider referral to infectious disease for osteomyelitis outpatient management. Plan of Treatment: Monitor ESR and CRP while treating osteomyelitis Time Spent With Patient Time: Total time spent is greater than 50% in coordination of care (as documented) at patient's floor/unit and/or counseling patient: QUALITY VTE Deep Vein Thrombosis/Pulmonary Embolism Present on Admission: No
[2021-11-30] MEDS: SENNOSIDES 1 TABLET PO SCH (20:54)
[2021-11-30] MEDS: ARIPIPRAZOLE 5 MG TABLET PO SCH (20:54)
[2021-11-30] MEDS: amLODIPine 10 MG TABLET PO SCH (20:54)
[2021-11-30] MEDS: OMEPRAZOLE 20 MG CAPSULE PO SCH (20:54)
[2021-11-30] MEDS: INSULIN GLARGINE, HUMAN 1 UNIT/0.01 ML SQ SCH (20:54)
[2021-11-30] MEDS: DULoxetine 30 MG CAPSULE PO SCH (20:55)
[2021-11-30] MEDS ORDERED: PROMETHAZINE 25 MG/ML VIAL IV ONE (21:30)
[2021-11-30] MEDS ORDERED: HYDROmorphone 1 MG/ML SYRINGE IV ONE (21:30)
[2021-11-30] MEDS ORDERED: PROMETHAZINE 25 MG/ML VIAL ONE (21:36)
[2021-12-01] MEDS: HYDROmorphone 2 MG TABLET PO PRN ×5 (00:42→21:47)
[2021-12-01] MEDS: 0.9 % SODIUM CHLORIDE 10 ML SYRINGE IV SCH ×4 (02:59→23:06)
[2021-12-01] MEDS: HYDROmorphone 1 MG/ML SYRINGE IV PRN ×5 (02:59→23:52)
[2021-12-01] MEDS: metroNIDAZOLE 500 MG TABLET PO SCH ×3 (05:08→23:05)
[2021-12-01 07:01] LABS: Basophils # (Auto) 0.02 K/mcL (0.00-0.30); Basophils % (Auto) 0.4 % (0.0-2.0); Eosinophils # (Auto) 0.41 K/mcL (0.00-0.70); Eosinophils % (Auto) 9.1 % (0.0-7.0); Hematocrit 27.1 % (34.1-44.9); Hemoglobin 8.3 g/dL (11.2-15.7); Lymphocytes # (Auto) 1.17 K/mcL (1.50-4.80); Lymphocytes % (Auto) 25.8 % (15.5-49.0); Mean Cell Volume 95.1 fL (80.0-100.0); Mean Corpuscular HGB Conc 30.6 g/dL (31.0-36.0); Mean Platelet Volume 8.8 fL (7.4-10.4); Monocytes # (Auto) 0.49 K/mcL (0.10-0.90); Monocytes % (Auto) 10.8 % (1.0-12.0); Neutrophils % (Auto) 53.9 % (38.0-78.0); Platelet Count 387 K/mcL (140-440); RBC 2.85 M/mcL (3.59-5.38); Red Cell Distribution Width 14.4 % (11.5-14.5); WBC 4.5 K/mcL (4.5-11.0)
[2021-12-01] MEDS: INSULIN LISPRO 1 UNIT/0.01 ML UNIT SQ SCH ×4 (07:16→22:42)
[2021-12-01 07:36] LABS: Albumin 3.4 gm/dL (3.2-5.2); Blood Urea Nitrogen 33 mg/dL (6-20); Calcium 9.4 mg/dL (8.6-10.4); Carbon Dioxide 17 mmol/L (22-30); Chloride 95 mmol/L (96-108); Glomerular Filtration Rate 10; Glucose 90 mg/dL (70-105); Phosphorous 5.5 mg/dL (2.5-4.5)
[2021-12-01] MEDS: SEVELAMER 800 MG TABLET PO SCH ×3 (08:02→17:13)
[2021-12-01] MEDS: FUROSEMIDE 40 MG TABLET PO SCH (08:02)
[2021-12-01] MEDS: DOCUSATE SODIUM 100 MG CAPSULE PO SCH ×2 (08:02→21:48)
[2021-12-01] MEDS: APIXABAN 5 MG TABLET PO SCH ×2 (08:02→21:48)
[2021-12-01] MEDS: CARVEDILOL 12.5 MG TABLET PO SCH ×2 (08:03→21:48)
--- NOTE | 2021-12-01 09:29 | Nephrology Progress Note ---
SUBJECTIVE Subjective Patient information: Note initiated : 12/01/21 at 9:13 am Service Date, if different from initiated Date: [] Patient: Paige Lemos 51 y/o F admitted on 11/26/21 for Osteomyelitis. Chief Complaint: [right foot pain] Principal diagnosis: Right foot osteomyelitis by MRI Interval history: Long discussion with Dr Rodrigues of Hospital Medicine, patient and staff nursing. Patient later seen by Dr Martinez Drs Jabier and Jaswinder's notes reviewed...no emergent sugery planned The patient has made the informed decision to try limb salvage with antibiotic therapy, knowing if this fails amputaion is certain and there is a risk of interval development of sepsis Patient was seen and examined on AM rounds Rx reviewed Working with CM to arrange home vanco Need to adjust Levaquin to 500 to 750 mg po qOD Vanco dosing per pharmacy Next HD tomorrow 12/02/2021 Due to swelling of head and left arm and known NON-occlusive Left IJ thrombosis, need to assess the entire upper venous system (bilateral IJ, SCV, Axillary vein and her AVG)...this could be done pre HD after needles are placed by the dialysis nurse and patient then sent to CT for CTA / CTV and thene undergo HD thereafter. Alternatively, doppler study of neck and arm vessels and AVF. She carries the Dx of left SCV thrombosis in her chart so this may be the root cause of her swelling as the high venous return from her left AVF may have no where to go except thru dilated chest wall vessels if the Left SCV is truly occ luded. If the above is true, then her left sided access will fail and as a result underscores my concern about using the right arm for ANY CENTRAL LINE, PIC line or MIDLINE CATHETER. All cultures and gram stains neg to date. Wound culture of January 2021 was only positive with MSSA Pertinent ROS: Swelling worse per patient of left arm Additional PMFSH (Level 3 Only): N/A Constitutional Vitals: Vital Signs Temp Pulse Resp BP Pulse Ox 36.7 C 65 16 164/71 98 12/01/21 08:00 12/01/21 08:00 12/01/21 08:00 12/01/21 08:00 12/01/21 08:00 Period Temp Pulse Resp BP Sys/Toro Pulse Ox Last 24 Hr 36.5 C-36.8 C 65-74 16-18 119-165/70-78 94-99 Intake and Output 11/30/21 12/01/21 12/01/21 21:59 05:59 13:59 Intake Total 300 250 Output Total 100 Balance 300 150 Weight 98.43 kg Intake & Output: Intake & Output 11/30/21 12/01/21 12/01/21 21:59 05:59 13:59 Intake Total 300 250 Output Total 100 Balance 300 150 Weight 98.43 kg Intake: Oral 300 250 Output: Void Amount 100 Other: Meal Lunch Percent of Meal Consumed 100% Urine Color Dark Yellow # Voids 1 General appearance: no acute distress and obese Head Head exam: Present atraumatic Additional comments: swollen face Eye Additional comments: blind os with opacified od Neck Neck exam: Present full ROM Additional comments: Supple Respiratory Respiratory exam: Present normal respiratory exam Cardiovascular Cardiovascular exam: Present normal rate and rhythm, +S1 and +S2; Absent rubs GI/Abdominal GI/Abdominal exam: Present normal bowel sounds Expanded Upper Extremity Exam Upper Arm exam: Present swelling (left arm with AVF) Neurological Exam Neurological exam: Present alert, CN II-XII intact and oriented X3 Psychiatric Psychiatric exam: Present flat affect Skin Skin exam: Present dry A/P Assessment and plan (1) Diabetic foot ulcer with osteomyelitis: Status: Chronic (2) Complication of arteriovenous dialysis fistula: Status: Acute (3) ESRD (end stage renal disease) on dialysis: Status: Chronic Comment: Q TTHFSun (4 tx per week) is her home HD schedule Narrative A/P Narrative: Narrative A/P Narrative: Assessment and plan (1) Diabetic foot ulcer with osteomyelitis: Assessment and plan: So far, cultures negative Vanco and pip/apurva for now See D/C plan below Plan: 1. CM to arrange insurance to provide for infusion of vancomycin at home by the patient on a weekly, or if levels dictate a twice weekly, schedule. 2. As the patient already draws blood for monthly lab testing as part of her home HD program, she could send a trough/pre-HD blood sample weekly to monitor therapeutic dosing of vancomycin (this is not part of the Medicare bundle and will have to be sent to [facility] as an outpatient lab). 3. I will monitor the lab work weekly and make adjustments as needed. 4. Dr Eugene will monitor her foot in the outpatient clinic 5. If gram negative or anerobic coverage is needed, this could be done with oral levoquin or moxifloxin for Gm neg coverage and metronidazole if anaerobic coverage is desired. 6. A baseline WBC, ESR and CRP should be obtained and monitored q month at a minimum. (2) ESRD (end stage renal disease) on dialysis: Plan: Q MWF while in hospital (3) Internal jugular (IJ) vein thromboembolism, acute: Assessment and plan: Suspect IJ catheter related Hence desire to AVOID any furthe PICC or CV catheters in right arm Plan: Continue Apixaban for 3 months and reassess Left IJ vessel by doppler U/S (4) Anemia due to end stage renal disease: Assessment and plan: Aranesp 100 ug IV q Thursday with inpatient HD due to increased blood loss to lab (5) Secondary hyperparathyroidism of renal origin: Assessment and plan: PO4 adequately controlled with Sevelemar Check intact PTH on thursday12/02/2021 Plan of Treatment: Monitor ESR and CRP while treating osteomyelitis Time Spent With Patient Time: Total time spent is greater than 50% in coordination of care (as documented) at patient's floor/unit and/or counseling patient:
--- NOTE | 2021-12-01 11:26 | Internal Med Progress Note ---
SUBJECTIVE Subjective Patient information: Note initiated : 12/01/21 at 11:18 am Service Date, if different from initiated Date: [] Patient: Paige Lemos 51 y/o F admitted on 11/26/21 for Osteomyelitis. Chief Complaint: [] Principal diagnosis: Right foot osteomyelitis by MRI Interval history: Ms. Lemos is a 51 year old female with a history of hypertension, insulin- dependent diabetes mellitus, ESRD, superior mesenteric artery syndrome, sleep apnea, obesity, left internal jugular vein thrombosis currently being treated with apixaban, chronic diabetic right foot ulcer who presented to the [facility] emergency department for further evaluation of right foot pain. In the emergency department, the patient had a right foot MRI without contrast that showed findings consistent with osteomyelitis involving the second through fourth metatarsals as well as several tarsal bones. The patient was transferred to [facility] due to lack of acute dialysis coverage at [facility]. Prior to transfer, the patient reported that she received 1 dose of metronidazole IV. Upon arrival to [facility], the patient stable. She has edema around her right foot and a chronic appearing ulcer at the anterior plantar portion of her right foot. Additionally, the patient has edema up to her right knee. The patient denies fevers and chills, her main complaint is right foot pain and nausea. We discussed the plan that would include surgical bone biopsies followed by initiation of broad-spectrum antibiotics then de-escalation based on culture results. We also discussed CODE STATUS, the patient wishes to be full code. 11/27 Afebrile overnight, received hemodialysis today. Dr. Eugene with podiatry will obtain surgical biopsies this afternoon. Will start vancomycin and Zosyn prior to surgery. 11/28 Surgical biopsies planned for today, foot edema somewhat improved. 11/29 Surgical cultures from 11/28 pending. 11/30 Surgical cultures showing no growth to date and unlikely to grown any organisms. Tentative plan for empiric antibiotics is IV Vancomycin and oral Levofloxacin and Metronidazole. Started Levofloxacin and Metronidazole to assess GI tolerance especially to Metronidazole. Discontinued Zosyn. 12/01 Tolerating oral metronidazole well so far. Surgical cultures continues to show no growth to date. The plan for antibiotics continues to be vancomycin IV once or twice a week depending on trough levels (patient's home dialysis does not remove vancomycin as efficiently as conventional hemodialysis she needs), trough levels will be followed by Dr. Barriga for vancomycin dosing and frequency adjustments, the patient will also be on oral renally dosed levofloxacin and oral metronidazole as long as she tolerates this without GI side effects. Monitor ESR and CPR. Follow-up with Dr. Eugene in podiatry clinic. Physical exam Head: Atraumatic, normal inspection. Eyes: normal appearance, no scleral icterus. Neck: full ROM Respiratory: no respiratory distress. Cardiovascular: normal rate and rhythm, S1, S2. GI/Abdominal: soft, nontender, no guarding. Extremities: Left upper extremity hemodialysis AV fistula w/ bruit present, right foot edema extending to right knee, chronic appearing ulcer on plantar aspect of the right foot. Neurological: CN II-XII intact, intact motor, intact sensation. Psychiatric: normal mood. Skin: Warmth and redness of right lower extremity Constitutional Vitals: Vital Signs Temp Pulse Resp BP Pulse Ox 98.0 F 65 16 164/71 98 12/01/21 08:00 12/01/21 08:00 12/01/21 08:00 12/01/21 08:00 12/01/21 08:00 Period Temp Pulse Resp BP Sys/Toro Pulse Ox Last 24 Hr 97.7 F-98.2 F 65-74 16-18 119-165/70-78 94-99 Intake and Output 11/30/21 12/01/21 12/01/21 21:59 05:59 13:59 Intake Total 300 250 Output Total 100 Balance 300 150 Weight 98.43 kg Intake & Output: Intake & Output 11/30/21 12/01/21 12/01/21 21:59 05:59 13:59 Intake Total 300 250 Output Total 100 Balance 300 150 Weight 98.43 kg Intake: Oral 300 250 Output: Void Amount 100 Other: Meal Lunch Percent of Meal Consumed 100% Urine Color Dark Yellow # Voids 1 OBJ DATA Labs CBC & Chem 7: 12/01/21 06:27 12/01/21 06:27 Labs: Abnormal Lab Results 12/01/21 12/01/21 11/29/21 06:27 06:27 13:28 RBC 2.85 L Hgb 8.3 L 8.7 L Hct 27.1 L MCHC 30.6 L RDW [place] % (Auto) Eos % (Auto) 9.1 H Lymph # (Auto) 1.17 L Sodium 128 L Chloride 95 L Carbon Dioxide 17 L BUN 33 H Creatinine 4.6 H Glucose Phosphorus 5.5 H C-Reactive Protein 2.90 H 11/29/21 11/29/21 08:43 08:43 RBC 2.68 L Hgb 7.8 L Hct 24.6 L MCHC RDW 14.6 H [place] % (Auto) 12.5 H Eos % (Auto) Lymph # (Auto) 1.31 L Sodium 128 L Chloride 95 L Carbon Dioxide 17 L BUN 47 H Creatinine 5.0 H* Glucose 127 H Phosphorus 5.4 H C-Reactive Protein Meds: Medications Acetaminophen (Acetaminophen 325 Mg Tablet) 650 mg PO Q6HP PRN; Protocol PRN Reason: Per Pain Protocol/Fever > 101 Amlodipine Besylate (Amlodipine 10 Mg Tablet) 10 mg PO QPM [facility] Last Admin: 11/30/21 20:54 Dose: 10 mg Documented by: Apixaban (Apixaban 5 Mg Tablet) 2.5 mg PO BID [facility] Last Admin: 12/01/21 08:02 Dose: 2.5 mg Documented by: Carvedilol (Carvedilol 12.5 Mg Tablet) 25 mg PO BID [facility] Last Admin: 12/01/21 08:03 Dose: 25 mg Documented by: Darbepoetin Daniel (Darbepoetin Daniel 100 Mcg/Ml Vial) 100 mcg IV Q7D [facility] Last Admin: 11/29/21 09:42 Dose: 100 mcg Documented by: Dextrose (Dextrose 50% 50 Ml Vial) 0 ml IV UD PRN PRN Reason: Per Sliding Scale Diagnostic Test (Pha) (Accu-Chek 1 Each Strip) 1 each FS ACHS [facility] Last Admin: 12/01/21 07:16 Dose: 1 each Documented by: Docusate Sodium (Docusate Sodium 100 Mg Capsule) 100 mg PO BID [facility] Last Admin: 12/01/21 08:02 Dose: 100 mg Documented by: Duloxetine HCl (Duloxetine 30 Mg Capsule) 60 mg PO QHS [facility] Last Admin: 11/30/21 20:55 Dose: 60 mg Documented by: Furosemide (Furosemide 40 Mg Tablet) 40 mg PO SuTuThSa@0900 [facility] Last Admin: 12/01/21 08:02 Dose: 40 mg Documented by: Glucose (Dextrose 31 Gm Oral.Susp) 15 gm PO PRN PRN PRN Reason: Hypoglycemia Hydromorphone HCl (Hydromorphone 2 Mg Tablet) 4 mg PO Q4HP PRN; Protocol PRN Reason: Per Pain Protocol Last Admin: 12/01/21 05:07 Dose: 4 mg Documented by: Hydromorphone HCl (Hydromorphone 1 Mg/Ml Syringe) 1 mg IV Q4HP PRN; Protocol PRN Reason: Per Pain Protocol Last Admin: 12/01/21 07:14 Dose: 1 mg Documented by: Albumin Human (Buminate) 12.5 gm in 50 mls @ 100 mls/hr IV Q2HP PRN PRN Reason: Hypotension Last Infusion: 11/29/21 12:05 Dose: Infused Documented by: Insulin Glargine (Insulin Glargine, Human 1 Unit/0.01 Ml) 10 unit SQ [facility] Last Admin: 11/30/21 20:54 Dose: 10 unit Documented by: Insulin Human Lispro (Insulin Lispro 1 Unit/0.01 Ml Unit) 0 unit SQ [facility]; Protocol Last Admin: 12/01/21 07:16 Dose: Not Given Documented by: Levofloxacin (Levofloxacin 500 Mg Tablet) 500 mg PO Q48H [facility]; Protocol Metronidazole (Metronidazole 500 Mg Tablet) 500 mg PO Q8 [facility]; Protocol Last Admin: 12/01/21 05:08 Dose: 500 mg Documented by: Naloxone HCl (Naloxone Hcl 0.4 Mg/Ml Vial) 0.4 mg IV Q10M PRN PRN Reason: Opiate Reversal Omeprazole (Omeprazole 20 Mg Capsule) 20 mg PO QHS [facility] Last Admin: 11/30/21 20:54 Dose: 20 mg Documented by: Ondansetron HCl (Ondansetron 4 Mg/2 Ml Vial) 4 mg IV Q6HP PRN PRN Reason: Nausea And Vomiting Methylphenidate Hcl (5 Mg Tablet) 1 dose PO [facility] Last Admin: 11/30/21 20:41 Dose: Not Given Documented by: Senna (Sennosides 1 Tablet) 2 tab PO [facility] Last Admin: 11/30/21 20:54 Dose: 2 tab Documented by: Sevelamer Carbonate (Sevelamer 800 Mg Tablet) 800 mg PO TIDCC [facility] Last Admin: 12/01/21 08:02 Dose: 800 mg Documented by: Sodium Chloride (0.9 % Sodium Chloride 10 Ml Syringe) 10 ml IV Q8 [facility] Last Admin: 12/01/21 05:08 Dose: 10 ml Documented by: Vancomycin HCl (Vancomycin Per Pharmacy) 1 order IV UD [facility]; Protocol A/P Narrative A/P Narrative: Assessment: 51 year old female with a history of hypertension, insulin-dependent diabetes mellitus, ESRD, superior mesenteric artery syndrome, obesity, left internal jugular vein thrombosis currently being treated with apixaban, chronic diabetic right foot ulcer admitted for osteomyelitis of right second through fourth metatarsals as well as several tarsal bones. The patient underwent surgery for bone biopsy but unfortunately received antibiotics prior to the procedure. Surgical cultures have not grown any organisms to date. The plan for empiric antibiotic coverage is IV vancomycin once or twice weekly depending on trough levels as her home hemodialysis machine does not remove vancomycin efficiently, oral renally adjusted levofloxacin and oral metronidazole as long as she tolerates oral antibiotics without GI side effects. 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 Barriga. -Levofloxacin and Metronidazole. -Follow all cultures-NGTD. -Analgesics as needed, wean IV Dilaudid. -No PICC line due to ESRD. -Nephrology following for inpatient hemodialysis. -Lantus 10 units at bedtime and correction Humalog SSImedium. -Eliquis 2.5 mg twice daily. -Home amlodipine, carvedilol, Lasix, Abilify, duloxetine, methylphenidate, omeprazole, sevelamer. -Case management following to assist with logistics for IV vancomycin antibiotic infusions. -Diet per podiatry. -DVT prophylaxis: On Eliquis -CODE STATUS: Full -Disposition: Anticipate home on empiric antibiotics for at least 6 weeks, potentially followed by suppressive oral antibiotic therapy. Follow up with podiatry after discharge. Plan of Treatment: Monitor ESR and CRP while treating osteomyelitis Time Spent With Patient Time: Total time spent is greater than 50% in coordination of care (as documented) at patient's floor/unit and/or counseling patient: QUALITY VTE Deep Vein Thrombosis/Pulmonary Embolism Present on Admission: No
--- NOTE | 2021-12-01 16:04 | Internal Med Progress Note ---
SUBJECTIVE Subjective Patient information: Note initiated : 12/01/21 at 3:57 pm Service Date, if different from initiated Date: [] Patient: Paige Lemos 51 y/o F admitted on 11/26/21 for Osteomyelitis. Chief Complaint: [] Principal diagnosis: Right foot osteomyelitis by MRI Interval history: Ms. Lemos is a 51 year old female with a history of hypertension, insulin- dependent diabetes mellitus, ESRD, superior mesenteric artery syndrome, sleep apnea, obesity, left internal jugular vein thrombosis currently being treated with apixaban, chronic diabetic right foot ulcer who presented to the [facility] emergency department for further evaluation of right foot pain. In the emergency department, the patient had a right foot MRI without contrast that showed findings consistent with osteomyelitis involving the second through fourth metatarsals as well as several tarsal bones. The patient was transferred to [facility] due to lack of acute dialysis coverage at [facility]. Prior to transfer, the patient reported that she received 1 dose of metronidazole IV. Upon arrival to [facility], the patient stable. She has edema around her right foot and a chronic appearing ulcer at the anterior plantar portion of her right foot. Additionally, the patient has edema up to her right knee. The patient denies fevers and chills, her main complaint is right foot pain and nausea. We discussed the plan that would include surgical bone biopsies followed by initiation of broad-spectrum antibiotics then de-escalation based on culture results. We also discussed CODE STATUS, the patient wishes to be full code. 11/27 Afebrile overnight, received hemodialysis today. Dr. Eugene with podiatry will obtain surgical biopsies this afternoon. Will start vancomycin and Zosyn prior to surgery. 11/28 Surgical biopsies planned for today, foot edema somewhat improved. 11/29 Surgical cultures from 11/28 pending. 11/30 Surgical cultures showing no growth to date and unlikely to grown any organisms. Tentative plan for empiric antibiotics is IV Vancomycin and oral Levofloxacin and Metronidazole. Started Levofloxacin and Metronidazole to assess GI tolerance especially to Metronidazole. Discontinued Zosyn. 12/01 Tolerating oral metronidazole well so far. Surgical cultures continues to show no growth to date. The plan for antibiotics continues to be vancomycin IV once or twice a week depending on trough levels (patient's home dialysis does not remove vancomycin as efficiently as conventional hemodialysis she needs), trough levels will be followed by Dr. Barriga for vancomycin dosing and frequency adjustments, the patient will also be on oral renally dosed levofloxacin and oral metronidazole as long as she tolerates this without GI side effects. Monitor ESR and CPR. Follow-up with Dr. Eugene in podiatry clinic. 12/02 Constitutional Vitals: Vital Signs Temp Pulse Resp BP Pulse Ox 98.1 F 64 18 151/73 95 12/01/21 12:00 12/01/21 12:00 12/01/21 12:00 12/01/21 12:00 12/01/21 12:00 Period Temp Pulse Resp BP Sys/Toro Pulse Ox Last 24 Hr 97.7 F-98.2 F 64-67 16-18 151-165/70-78 94-99 Intake and Output 12/01/21 12/01/21 12/01/21 05:59 13:59 21:59 Intake Total 250 Output Total 100 Balance 150 Intake & Output: Intake & Output 12/01/21 12/01/21 12/01/21 05:59 13:59 21:59 Intake Total 250 Output Total 100 Balance 150 Intake: Oral 250 Output: Void Amount 100 Other: Urine Color Dark Yellow Exam: General: Alert, Awake, No acute Distress, obese Eyes/N/T: EOMI, Head/Neck: neck supple, CV: RRR, No murmurs, Pulm: Clear b/l, no wheezing/rhonchi/rales Abd: soft, nontender, +BS x4 Ext: no clubbing/cyanosis. Left UE fistula. Right foot/leg edema/erythema Neuro: Alert, no focal deficits, moves all extremities, Skin: warm/dry OBJ DATA Labs CBC & Chem 7: 12/01/21 06:27 12/01/21 06:27 Labs: Abnormal Lab Results 12/01/21 12/01/21 11/29/21 06:27 06:27 13:28 RBC 2.85 L Hgb 8.3 L 8.7 L Hct 27.1 L MCHC 30.6 L RDW [place] % (Auto) Eos % (Auto) 9.1 H Lymph # (Auto) 1.17 L Sodium 128 L Chloride 95 L Carbon Dioxide 17 L BUN 33 H Creatinine 4.6 H Glucose Phosphorus 5.5 H C-Reactive Protein 2.90 H 04/08/22 04/08/22 08:43 08:43 RBC 2.68 L Hgb 7.8 L Hct 24.6 L MCHC RDW 14.6 H [place] % (Auto) 12.5 H Eos % (Auto) Lymph # (Auto) 1.31 L Sodium 128 L Chloride 95 L Carbon Dioxide 17 L BUN 47 H Creatinine 5.0 H* Glucose 127 H Phosphorus 5.4 H C-Reactive Protein Meds: Medications Acetaminophen (Acetaminophen 325 Mg Tablet) 650 mg PO Q6HP PRN; Protocol PRN Reason: Per Pain Protocol/Fever > 101 Amlodipine Besylate (Amlodipine 10 Mg Tablet) 10 mg PO QPM [facility] Last Admin: 11/30/21 20:54 Dose: 10 mg Documented by: Apixaban (Apixaban 5 Mg Tablet) 2.5 mg PO BID [facility] Last Admin: 12/01/21 08:02 Dose: 2.5 mg Documented by: Carvedilol (Carvedilol 12.5 Mg Tablet) 25 mg PO BID [facility] Last Admin: 12/01/21 08:03 Dose: 25 mg Documented by: Darbepoetin Daniel (Darbepoetin Daniel 100 Mcg/Ml Vial) 100 mcg IV Q7D [facility] Last Admin: 11/29/21 09:42 Dose: 100 mcg Documented by: Dextrose (Dextrose 50% 50 Ml Vial) 0 ml IV UD PRN PRN Reason: Per Sliding Scale Diagnostic Test (Pha) (Accu-Chek 1 Each Strip) 1 each FS ACHS [facility] Last Admin: 12/01/21 11:18 Dose: 1 each Documented by: Docusate Sodium (Docusate Sodium 100 Mg Capsule) 100 mg PO BID [facility] Last Admin: 12/01/21 08:02 Dose: 100 mg Documented by: Duloxetine HCl (Duloxetine 30 Mg Capsule) 60 mg PO QHS [facility] Last Admin: 11/30/21 20:55 Dose: 60 mg Documented by: Furosemide (Furosemide 40 Mg Tablet) 40 mg PO SuTuThSa@0900 [facility] Last Admin: 12/01/21 08:02 Dose: 40 mg Documented by: Glucose (Dextrose 31 Gm Oral.Susp) 15 gm PO PRN PRN PRN Reason: Hypoglycemia Hydromorphone HCl (Hydromorphone 2 Mg Tablet) 4 mg PO Q4HP PRN; Protocol PRN Reason: Per Pain Protocol Last Admin: 12/01/21 11:18 Dose: 4 mg Documented by: Hydromorphone HCl (Hydromorphone 1 Mg/Ml Syringe) 1 mg IV Q4HP PRN; Protocol PRN Reason: Per Pain Protocol Last Admin: 12/01/21 12:50 Dose: 1 mg Documented by: Albumin Human (Buminate) 12.5 gm in 50 mls @ 100 mls/hr IV Q2HP PRN PRN Reason: Hypotension Last Infusion: 11/29/21 12:05 Dose: Infused Documented by: Vancomycin HCl 1,500 mg/ (Sodium Chloride) 500 mls @ 333.3 mls/hr IV ONCE ONE; Protocol Stop: 12/02/21 15:30 Insulin Glargine (Insulin Glargine, Human 1 Unit/0.01 Ml) 10 unit SQ [facility] Last Admin: 11/30/21 20:54 Dose: 10 unit Documented by: Insulin Human Lispro (Insulin Lispro 1 Unit/0.01 Ml Unit) 0 unit SQ [facility]; Protocol Last Admin: 12/01/21 11:18 Dose: Not Given Documented by: Levofloxacin (Levofloxacin 500 Mg Tablet) 500 mg PO Q48H [facility]; Protocol Metronidazole (Metronidazole 500 Mg Tablet) 500 mg PO Q8 [facility]; Protocol Last Admin: 12/01/21 14:57 Dose: 500 mg Documented by: Naloxone HCl (Naloxone Hcl 0.4 Mg/Ml Vial) 0.4 mg IV Q10M PRN PRN Reason: Opiate Reversal Omeprazole (Omeprazole 20 Mg Capsule) 20 mg PO QHS [facility] Last Admin: 11/30/21 20:54 Dose: 20 mg Documented by: Ondansetron HCl (Ondansetron 4 Mg/2 Ml Vial) 4 mg IV Q6HP PRN PRN Reason: Nausea And Vomiting Methylphenidate Hcl (5 Mg Tablet) 1 dose PO [facility] Last Admin: 11/30/21 20:41 Dose: Not Given Documented by: Senna (Sennosides 1 Tablet) 2 tab PO [facility] Last Admin: 11/30/21 20:54 Dose: 2 tab Documented by: Sevelamer Carbonate (Sevelamer 800 Mg Tablet) 800 mg PO TIDCC [facility] Last Admin: 12/01/21 11:17 Dose: 800 mg Documented by: Sodium Chloride (0.9 % Sodium Chloride 10 Ml Syringe) 10 ml IV Q8 [facility] Last Admin: 12/01/21 14:58 Dose: 10 ml Documented by: A/P Narrative A/P Narrative: A: #Osteomyelitis Right 2nd-4th MT & several Tarsal bones: #Chronic right diabetic foot ulcer: #Hyponatremia, chronic: #DM complicated by retinopathy and ESRD: #ESRD: on home hemodialysis #Anemia, chronic: #Left internal jugular vein thrombosis on apixaban #Hypertension: #Chronic pain on opioids: #Superior mesenteric artery syndrome: #Depression/anxiety Plan: -Nuclear Medicine Technician Dr. Eugene following, Pending bone biopsies -Vancomycin IV per pharmacy, outpatient dosing by Dr. Barriga. Levofloxacin and Metronidazole -No PICC line due to ESRD. -Nephrology following for inpatient hemodialysis -basal and SSI -Eliquis 2.5 mg twice daily. -Home amlodipine, carvedilol, Lasix, Abilify, duloxetine, methylphenidate, omeprazole, sevelamer. -Case management following to assist with logistics for IV vancomycin antibiotic infusions. -Disposition: Anticipate home on empiric antibiotics for at least 6 weeks, potentially followed by suppressive oral antibiotic therapy. --Follow up with podiatry after discharge. -DVT prophylaxis: On Eliquis CODE STATUS: Full Plan of Treatment: Monitor ESR and CRP while treating osteomyelitis NG for bone culturesx2 Edema improved pt with considerable pain one time dose 1mg hydromorphone IV one time dose 25mg phenergan IV -MSSA wound culture right foot performed in office on the day of admission NWB with minimal HWB to bathroom and back only. Appreciate and agree nephrology and hospitalist abx discussion Vanco as per levels to be followed by nephrology Overall, improvement continues will change dressing tomorrow am Time Spent With Patient Time: Total time spent is greater than 50% in coordination of care (as documented) at patient's floor/unit and/or counseling patient: QUALITY VTE Deep Vein Thrombosis/Pulmonary Embolism Present on Admission: No
--- NOTE | 2021-12-01 16:07 | Discharge Summary ---
Discharge Provider Provider Patient information: Note initiated : 12/01/21 at 4:05 pm Service Date, if different from initiated Date: [] Patient: Paige Lemos 51 y/o F admitted on 11/26/21 for Osteomyelitis. Chief Complaint: [] Date of admission: 11/26/21 20:10 Discharge date: 12/03/21 Primary care physician: Bridger Benites MD Consults: 11/26/21 20:25 Consult to Physician [CONS] Routine Comment: Consulting Provider: Reji Barriga Reason For Exam: Physician to Consult 11/27/21 07:33 Consult to Physician [CONS] Routine Comment: Consulting Provider: Dawson Eugene Reason For Exam: Physician to Consult 11/29/21 11:05 Consult to Physician [CONS] Routine Comment: Consulting Provider: Enrico Martinez Reason For Exam: Physician to Consult Discharge Meds Discharge Medications Home Medications docusate sodium 100 mg capsule (Colace) 100 mg PO DAILYP PRN 12/05/19 [History Confirmed 11/26/21 Last Taken 11/26/21 21:00] bisacodyl 5 mg tablet,delayed release (Dulcolax (bisacodyl)) 10 mg PO QDAY tab 03/20/20 [History Confirmed 11/26/21 Last Taken 11/26/21 21:00] clobetasol 0.05 % scalp solution 1 applic TOPICAL QDAY 03/20/20 [History Confirmed 11/26/21 Last Taken 11/26/21 21:00] diphenhydramine HCl 25 mg capsule (Benadryl) 25 - 75 mg PO Q6H PRN cap 03/20/20 [History Confirmed 11/26/21 Last Taken 11/26/21 21:00] promethazine 25 mg tablet 25 - 50 mg PO Q6HP PRN 03/20/20 [History Confirmed 11/26/21 Last Taken 11/25/21 21:00] insulin lispro 100 unit/mL subcutaneous solution See Rx Instructions .ROUTE .COMPLEX ml 11/09/20 [History Confirmed 11/26/21 Last Taken 11/26/21 19:00] duloxetine 60 mg capsule,delayed release 60 mg PO QHS 06/26/21 [History Confirmed 11/26/21 Last Taken 11/26/21 21:00] methylphenidate HCl 5 mg tablet 5 mg PO HS 06/26/21 [History Confirmed 11/26/21 Last Taken 11/26/21 21:00] omeprazole 20 mg capsule,delayed release 20 mg PO QHS 06/26/21 [History Confirmed 11/26/21 Last Taken 11/26/21 21:00] ondansetron HCl 8 mg tablet 8 mg PO Q8H PRN 06/26/21 [History Confirmed 11/26/21 Last Taken 11/26/21 09:00] sevelamer carbonate 800 mg tablet 800 mg PO TIDCC 06/26/21 [History Confirmed 11/26/21 Last Taken 11/26/21 21:00] apixaban 2.5 mg tablet 2.5 mg PO BID #60 tab 10/29/21 [Rx Confirmed 11/26/21 Last Taken 11/26/21 21:00] naloxone 4 mg/actuation nasal spray (Narcan) 4 mg INTRANASAL Q2M PRN #1 ea 11/18/21 [Rx Confirmed 11/26/21 Last Taken Unknown] amlodipine 10 mg tablet 10 mg PO QPM #90 tab 11/20/21 [Rx Confirmed 11/26/21 Last Taken 11/26/21 21:00] carvedilol 25 mg tablet 25 mg PO BID #180 tab 11/20/21 [Rx Confirmed 11/26/21 Last Taken 11/26/21 21:00] hydromorphone 4 mg tablet 4 mg PO Q6H PRN #240 tab MDD 8 11/20/21 [Rx Confirmed 11/26/21 Last Taken 11/26/21 19:00] aripiprazole 5 mg tablet (Abilify) 5 mg PO QHS #30 tab 11/22/21 [Rx Confirmed 11/26/21 Last Taken 11/26/21 21:00] insulin glargine 100 unit/mL (3 mL) subcutaneous pen (Lantus Solostar U-100 Insulin) See Rx Instructions .ROUTE .COMPLEX 11/26/21 [History Confirmed 11/26/21 Last Taken 11/26/21 19:00] furosemide 40 mg tablet 1 tab PO BID 11/29/21 [History Confirmed 11/29/21 Last Taken Unknown] levofloxacin 500 mg tablet 500 mg PO Q48H #18 tab 12/01/21 [Rx Last Taken Unknown] metronidazole 500 mg tablet 500 mg PO Q8H #108 tab 12/01/21 [Rx Last Taken Unknown] vancomycin 1.5 gram intravenous solution See Rx Instructions .ROUTE .COMPLEX #12 ea 12/02/21 [Rx Last Taken Unknown] COURSE Hospital Course Hospital course: Interval history: Ms. 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 In the emergency department, the patient had a right foot MRI without contrast that showed findings consistent with osteomyelitis involving the second through fourth metatarsals as well as several tarsal bones. The patient was transferred to [facility] due to lack of acute dialysis coverage at [facility]. Prior to transfer, the patient reported that she received 1 dose of metronidazole IV. Upon arrival to [facility], the patient stable. She has edema around her right foot and a chronic appearing ulcer at the anterior plantar portion of her right foot. Additionally, the patient has edema up to her right knee. The patient denies fevers and chills, her main complaint is right foot pain and nausea. We discussed the plan that would include surgical bone biopsies followed by initiation of broad-spectrum antibiotics then de-escalation based on culture results. We also discussed CODE STATUS, the patient wishes to be full code. 11/27 Afebrile overnight, received hemodialysis today. Dr. Eugene with podiatry will obtain surgical biopsies this afternoon. Will start vancomycin and Zosyn prior to surgery. 11/28 Surgical biopsies planned for today, foot edema somewhat improved. 11/29 Surgical cultures from 11/28 pending. 11/30 Surgical cultures showing no growth to date and unlikely to grown any organisms. Tentative plan for empiric antibiotics is IV Vancomycin and oral Levofloxacin and Metronidazole. Started Levofloxacin and Metronidazole to assess GI tolerance especially to Metronidazole. Discontinued Zosyn. 12/01 Tolerating oral metronidazole well so far. Surgical cultures continues to show no growth to date. The plan for antibiotics continues to be vancomycin IV once or twice a week depending on trough levels (patient's home dialysis does not remove vancomycin as efficiently as conventional hemodialysis she needs), trough levels will be followed by Dr. Barriga for vancomycin dosing and frequency adjustments, the patient will also be on oral renally dosed levofloxacin and oral metronidazole as long as she tolerates this without GI side effects. Monitor ESR and CPR. Follow-up with Dr. Eugene in podiatry clinic. 12/02 Patient continues on antibiotics. Getting hemodialysis today. 12/03 No overnight event or new complaints. Patient will discharge today on IV Vanco per nephrology and oral Levaquin and Flagyl. 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 Eugene following, Pending bone biopsies (had been on abx prior to biopsy) -Vancomycin IV per Dr. Barriga. PO Levofloxacin and Metronidazole -No PICC line due to ESRD. -Anticipate home on empiric antibiotics for at least 6 weeks, potentially followed by suppressive oral antibiotic therapy -Follow up with podiatry after discharge. Discharge diagnosis: Right foot osteomyelitis Secondary discharge diagnosis: Chronic right foot diabetic ulcer hyponatremia diabetes with retinopathy end- stage renal disease chronic anemia left internal jugular vein thrombosis on apixaban hypertension chronic pain superior mesenteric artery syndrome depression/anxiety Time Spent with Patient Time attestation: Total time spent providing and/or coordinating discharge services: Time spent: Greater than 30 minutes EXAM Constitutional Vitals: Temp Pulse Resp BP Pulse Ox 98.1 F 64 18 151/73 95 12/01/21 12:00 12/01/21 12:00 12/01/21 12:00 12/01/21 12:00 12/01/21 12:00 Discharge Data Data Completed and Pending Labs on day of discharge: Labs from last 24 hours 12/01/21 12/01/21 06:27 06:27 WBC 4.5 RBC 2.85 L Hgb 8.3 L Hct 27.1 L MCV 95.1 MCH 29.1 MCHC 30.6 L RDW 14.4 Plt Count 387 MPV 8.8 Neut % (Auto) 53.9 Lymph % (Auto) 25.8 [place] % (Auto) 10.8 Eos % (Auto) 9.1 H Baso % (Auto) 0.4 Lymph # (Auto) 1.17 L [place] # (Auto) 0.49 Eos # (Auto) 0.41 Baso # (Auto) 0.02 Absolute Neutrophils 2.44 Sodium 128 L Potassium 4.2 Chloride 95 L Carbon Dioxide 17 L Anion Gap 16.0 BUN 33 H Creatinine 4.6 H GFR Calculation 10 Glucose 90 Calcium 9.4 Phosphorus 5.5 H C-Reactive Protein 2.90 H Albumin 3.4 Preliminary micro results at discharge 11/28/21 15:47 Anaerobic Culture - Preliminary Foot - Right 11/27/21 10:21 Blood Culture - Preliminary Blood 11/27/21 08:15 Blood Culture - Preliminary Blood 11/28/21 04:00 Fungal Smear - Preliminary Foot - Right Discharge Plan Patient/Caregiver Discharge Instructions Activity: increase activity as tolerated Diet: Renal/Consistent Carbs Activity Restrictions/Additional Instructions: Weekly CBC/CMP/ESR/CRP -sent to Dr. Barriga and PCP. Prescriptions: New metronidazole 500 mg tablet 500 mg PO Q8H Qty: 108 0RF levofloxacin 500 mg tablet 500 mg PO Q48H Qty: 18 0RF vancomycin 1.5 gram Recon Soln See Rx Instructions .ROUTE .COMPLEX Qty: 12 0RF Rx Instructions: 1.5 g intravenously 2x weekly on Thursday and Thursday morning. Duration: 6 weeks. Pharmacy to dose (per Thursday trough). Continued diphenhydramine HCl [Benadryl] 25 mg capsule 25 - 75 mg PO Q6H PRN (Reason: Allergy Symptoms) 0RF Rx Instructions: Dialysis - 75 mg orally (25 mg tablet) every 6 hours prn Itching clobetasol 0.05 % solution 1 applic TOPICAL QDAY 0RF Rx Instructions: 1 hemanth applied topically (0.05% cream) once a day Apply thin layer to affected area(s) prn bisacodyl [Dulcolax (bisacodyl)] 5 mg tablet,delayed release (DR/EC) 10 mg PO QDAY 0RF Rx Instructions: 10 mg orally (5 mg delayed release tablet) once a day promethazine 25 mg tablet 25 - 50 mg PO Q6HP PRN (Reason: Nausea And Vomiting) 0RF Rx Instructions: 50 mg orally (25 mg tablet) every 6 to 8 hours prn for nausea/vomiting insulin lispro 100 unit/mL solution See Rx Instructions .ROUTE .COMPLEX 0RF Rx Instructions: Medium SS per patient apixaban 2.5 mg tablet 2.5 mg PO BID Qty: 60 2RF Rx Instructions: Call if excessive bleeding from AVF occurs carvedilol 25 mg tablet 25 mg PO BID Qty: 180 1RF amlodipine 10 mg tablet 10 mg PO QPM Qty: 90 1RF aripiprazole [Abilify] 5 mg tablet 5 mg PO QHS Qty: 30 2RF naloxone [Narcan] 4 mg/actuation spray,non-aerosol 4 mg intranasal Q2M PRN (Reason: opioid overdose) Qty: 1 0RF Rx Instructions: spray 1 dose into ONE nostril; alternate nostrils w each dose until help arrives hydromorphone 4 mg tablet 4 mg PO Q6H MDD 8 PRN (Reason: Pain) Qty: 240 0RF Rx Instructions: *MUST LAST 30 DAYS*; P/U /, Start 6/ docusate sodium [Colace] 100 mg capsule 100 mg PO DAILYP PRN (Reason: Constipation) 0RF ondansetron HCl 8 mg Tablet 8 mg PO Q8H PRN (Reason: Nausea And Vomiting) 0RF methylphenidate HCl 5 mg Tablet 5 mg PO HS 0RF omeprazole 20 mg Capsule,Delayed Release(Dr/Ec) 20 mg PO QHS 0RF duloxetine 60 mg capsule,delayed release(DR/EC) 60 mg PO QHS 0RF sevelamer carbonate 800 mg tablet 800 mg PO TIDCC 0RF Rx Instructions: given any time with eating. Lantus Solostar U-100 Insulin 100 unit/mL (3 mL) insulin pen See Rx Instructions .ROUTE .COMPLEX 0RF Rx Instructions: patient takes 10units in AM and 15units at night furosemide 40 mg tablet 1 tab PO BID 0RF Rx Instructions: on non dialysis days Other Ambulatory Orders: C-Reactive Protein (Q14D) Timeframe: 20211210 Facility: [facility] - Location: Laboratory Ordered By: Reji Barriga Erythrocyte Sedimentation Rate (Q14D) Timeframe: 20211211 Facility: [facility] - Location: Laboratory Ordered By: Reji Barriga Vancomycin,Trough (Q7D) Timeframe: 20211203 Facility: [facility] - Location: Laboratory Ordered By: Reji Barriga Follow Up Plan Follow up with: Reji Barriga MD [Physician] - Dawson Eugene DPM [Physician] - Patient Disposition: Home Health Service Prognosis: Fair Overall status at discharge: patient is progressing back to baseline Discharge Orders: Discharge Order (Routine); Ordered 12/03/21 Ordered By: Vivek Pettit [facility] VTE Deep Vein Thrombosis/Pulmonary Embolism Present on Admission: No
--- NOTE | 2021-12-01 16:41 | Orthopedic Progress Note ---
SUBJECTIVE Subjective Patient information: Note initiated : 12/01/21 at 4:02 pm Service Date, if different from initiated Date: [11/30/21] Patient: Paige Lemos 51 y/o F admitted on 11/26/21 for Osteomyelitis. Chief Complaint: [pain in leg and foot ] Principal diagnosis: Right foot osteomyelitis by MRI Interval history: POD 2 bone biopsy x2 cuneiform and cuboid Pertinent ROS: denies n/v/ns/c Constitutional Vitals: Vital Signs Temp Pulse Resp BP Pulse Ox 98.1 F 64 18 151/73 95 12/01/21 12:00 12/01/21 12:00 12/01/21 12:00 12/01/21 12:00 12/01/21 12:00 Period Temp Pulse Resp BP Sys/Toro Pulse Ox Last 24 Hr 97.7 F-98.2 F 64-67 16-18 151-165/70-78 94-99 Intake and Output 12/01/21 12/01/21 12/01/21 05:59 13:59 21:59 Intake Total 250 Output Total 100 Balance 150 Intake & Output: Intake & Output 12/01/21 12/01/21 12/01/21 05:59 13:59 21:59 Intake Total 250 Output Total 100 Balance 150 Intake: Oral 250 Output: Void Amount 100 Other: Urine Color Dark Yellow General appearance: mild distress Neurological Exam Additional comments: senory deficits both limbs Skin Additional comments: bone probing wound sub met 4 with minimal serous drainage. no localized, streaking or erythema or calor. edema improved/leg and foot skin lines present. OBJ DATA Labs CBC & Chem 7: 12/01/21 06:27 12/01/21 06:27 Labs: Abnormal Lab Results bone culture x2 ngtd right foot 12/01/21 12/01/21 11/29/21 06:27 06:27 13:28 RBC 2.85 L Hgb 8.3 L 8.7 L Hct 27.1 L MCHC 30.6 L RDW [place] % (Auto) Eos % (Auto) 9.1 H Lymph # (Auto) 1.17 L Sodium 128 L Chloride 95 L Carbon Dioxide 17 L BUN 33 H Creatinine 4.6 H Glucose Phosphorus 5.5 H C-Reactive Protein 2.90 H 04/08/22 04/08/22 08:43 08:43 RBC 2.68 L Hgb 7.8 L Hct 24.6 L MCHC RDW 14.6 H [place] % (Auto) 12.5 H Eos % (Auto) Lymph # (Auto) 1.31 L Sodium 128 L Chloride 95 L Carbon Dioxide 17 L BUN 47 H Creatinine 5.0 H* Glucose 127 H Phosphorus 5.4 H C-Reactive Protein Meds: Medications Acetaminophen (Acetaminophen 325 Mg Tablet) 650 mg PO Q6HP PRN; Protocol PRN Reason: Per Pain Protocol/Fever > 101 Amlodipine Besylate (Amlodipine 10 Mg Tablet) 10 mg PO QPM [facility] Last Admin: 11/30/21 20:54 Dose: 10 mg Documented by: Apixaban (Apixaban 5 Mg Tablet) 2.5 mg PO BID [facility] Last Admin: 12/01/21 08:02 Dose: 2.5 mg Documented by: Carvedilol (Carvedilol 12.5 Mg Tablet) 25 mg PO BID [facility] Last Admin: 12/01/21 08:03 Dose: 25 mg Documented by: Darbepoetin Daniel (Darbepoetin Daniel 100 Mcg/Ml Vial) 100 mcg IV Q7D [facility] Last Admin: 11/29/21 09:42 Dose: 100 mcg Documented by: Dextrose (Dextrose 50% 50 Ml Vial) 0 ml IV UD PRN PRN Reason: Per Sliding Scale Diagnostic Test (Pha) (Accu-Chek 1 Each Strip) 1 each FS ACHS [facility] Last Admin: 12/01/21 11:18 Dose: 1 each Documented by: Docusate Sodium (Docusate Sodium 100 Mg Capsule) 100 mg PO BID [facility] Last Admin: 12/01/21 08:02 Dose: 100 mg Documented by: Duloxetine HCl (Duloxetine 30 Mg Capsule) 60 mg PO QHS [facility] Last Admin: 11/30/21 20:55 Dose: 60 mg Documented by: Furosemide (Furosemide 40 Mg Tablet) 40 mg PO SuTuThSa@0900 [facility] Last Admin: 12/01/21 08:02 Dose: 40 mg Documented by: Glucose (Dextrose 31 Gm Oral.Susp) 15 gm PO PRN PRN PRN Reason: Hypoglycemia Hydromorphone HCl (Hydromorphone 2 Mg Tablet) 4 mg PO Q4HP PRN; Protocol PRN Reason: Per Pain Protocol Last Admin: 12/01/21 11:18 Dose: 4 mg Documented by: Hydromorphone HCl (Hydromorphone 1 Mg/Ml Syringe) 1 mg IV Q4HP PRN; Protocol PRN Reason: Per Pain Protocol Last Admin: 12/01/21 12:50 Dose: 1 mg Documented by: Albumin Human (Buminate) 12.5 gm in 50 mls @ 100 mls/hr IV Q2HP PRN PRN Reason: Hypotension Last Infusion: 11/29/21 12:05 Dose: Infused Documented by: Vancomycin HCl 1,500 mg/ (Sodium Chloride) 500 mls @ 333.3 mls/hr IV ONCE ONE; Protocol Stop: 12/02/21 15:30 Insulin Glargine (Insulin Glargine, Human 1 Unit/0.01 Ml) 10 unit SQ [facility] Last Admin: 11/30/21 20:54 Dose: 10 unit Documented by: Insulin Human Lispro (Insulin Lispro 1 Unit/0.01 Ml Unit) 0 unit SQ [facility]; Protocol Last Admin: 12/01/21 11:18 Dose: Not Given Documented by: Levofloxacin (Levofloxacin 500 Mg Tablet) 500 mg PO Q48H [facility]; Protocol Metronidazole (Metronidazole 500 Mg Tablet) 500 mg PO Q8 [facility]; Protocol Last Admin: 12/01/21 14:57 Dose: 500 mg Documented by: Naloxone HCl (Naloxone Hcl 0.4 Mg/Ml Vial) 0.4 mg IV Q10M PRN PRN Reason: Opiate Reversal Omeprazole (Omeprazole 20 Mg Capsule) 20 mg PO QHS [facility] Last Admin: 11/30/21 20:54 Dose: 20 mg Documented by: Ondansetron HCl (Ondansetron 4 Mg/2 Ml Vial) 4 mg IV Q6HP PRN PRN Reason: Nausea And Vomiting Methylphenidate Hcl (5 Mg Tablet) 1 dose PO [facility] Last Admin: 11/30/21 20:41 Dose: Not Given Documented by: Senna (Sennosides 1 Tablet) 2 tab PO [facility] Last Admin: 11/30/21 20:54 Dose: 2 tab Documented by: Sevelamer Carbonate (Sevelamer 800 Mg Tablet) 800 mg PO TIDCC [facility] Last Admin: 12/01/21 11:17 Dose: 800 mg Documented by: Sodium Chloride (0.9 % Sodium Chloride 10 Ml Syringe) 10 ml IV Q8 [facility] Last Admin: 12/01/21 14:58 Dose: 10 ml Documented by: A/P Narrative A/P Narrative: osteomyelitis right foot /metatarsals and tarsal bones -limb threatening infection Plan of Treatment: Monitor ESR and CRP while treating osteomyelitis NGTD for bone culturesx2 Dressing changed Edema improved pt with considerable pain one time dose 1mg hydromorphone IV one time dose 25mg phenergan IV -MSSA wound culture right foot performed in office on the day of admission NWB with minimal HWB to bathroom and back only. Appreciate nephrology and hospitalist abx discussion Vanco as per levels to be followed by nephrology Overall, improvement Time Spent With Patient Time: Total time spent is greater than 50% in coordination of care (as documented) at patient's floor/unit and/or counseling patient: Total time spent with greater than 50% in coordination of care (as documented) at patient's floor/unit and/or counseling patient:: 25 - 35 minutes
--- NOTE | 2021-12-01 16:52 | Orthopedic Progress Note ---
SUBJECTIVE Subjective Patient information: Note initiated : 12/01/21 at 4:47 pm Service Date, if different from initiated Date: [] Patient: Paige Lemos 51 y/o F admitted on 11/26/21 for Osteomyelitis. Chief Complaint: [no complaints] Principal diagnosis: Right foot osteomyelitis by MRI Interval history: POD 3 bone biopsy right foot Pertinent ROS: improved pain, no n/v/ns/c/so/cp Constitutional Vitals: Vital Signs Temp Pulse Resp BP Pulse Ox 98.1 F 64 18 151/73 95 12/01/21 12:00 12/01/21 12:00 12/01/21 12:00 12/01/21 12:00 12/01/21 12:00 Period Temp Pulse Resp BP Sys/Toro Pulse Ox Last 24 Hr 97.7 F-98.2 F 64-67 16-18 151-165/70-78 94-99 Intake and Output 12/01/21 12/01/21 12/01/21 05:59 13:59 21:59 Intake Total 250 Output Total 100 Balance 150 Intake & Output: Intake & Output 12/01/21 12/01/21 12/01/21 05:59 13:59 21:59 Intake Total 250 Output Total 100 Balance 150 Intake: Oral 250 Output: Void Amount 100 Other: Urine Color Dark Yellow General appearance: no acute distress Skin Additional comments: Dressing intact without strikethrough skin tension lines leg increase/edema leg decreased OBJ DATA Labs CBC & Chem 7: 12/01/21 06:27 12/01/21 06:27 Labs: Abnormal Lab Results 12/01/21 12/01/21 11/29/21 06:27 06:27 13:28 RBC 2.85 L Hgb 8.3 L 8.7 L Hct 27.1 L MCHC 30.6 L RDW [place] % (Auto) Eos % (Auto) 9.1 H Lymph # (Auto) 1.17 L Sodium 128 L Chloride 95 L Carbon Dioxide 17 L BUN 33 H Creatinine 4.6 H Glucose Phosphorus 5.5 H C-Reactive Protein 2.90 H 11/29/21 11/29/21 08:43 08:43 RBC 2.68 L Hgb 7.8 L Hct 24.6 L MCHC RDW 14.6 H [place] % (Auto) 12.5 H Eos % (Auto) Lymph # (Auto) 1.31 L Sodium 128 L Chloride 95 L Carbon Dioxide 17 L BUN 47 H Creatinine 5.0 H* Glucose 127 H Phosphorus 5.4 H C-Reactive Protein Meds: Medications Acetaminophen (Acetaminophen 325 Mg Tablet) 650 mg PO Q6HP PRN; Protocol PRN Reason: Per Pain Protocol/Fever > 101 Amlodipine Besylate (Amlodipine 10 Mg Tablet) 10 mg PO QPM [facility] Last Admin: 11/30/21 20:54 Dose: 10 mg Documented by: Apixaban (Apixaban 5 Mg Tablet) 2.5 mg PO BID [facility] Last Admin: 12/01/21 08:02 Dose: 2.5 mg Documented by: Carvedilol (Carvedilol 12.5 Mg Tablet) 25 mg PO BID [facility] Last Admin: 12/01/21 08:03 Dose: 25 mg Documented by: Darbepoetin Daniel (Darbepoetin Daniel 100 Mcg/Ml Vial) 100 mcg IV Q7D [facility] Last Admin: 11/29/21 09:42 Dose: 100 mcg Documented by: Dextrose (Dextrose 50% 50 Ml Vial) 0 ml IV UD PRN PRN Reason: Per Sliding Scale Diagnostic Test (Pha) (Accu-Chek 1 Each Strip) 1 each FS ACHS [facility] Last Admin: 12/01/21 16:23 Dose: 1 each Documented by: Docusate Sodium (Docusate Sodium 100 Mg Capsule) 100 mg PO BID [facility] Last Admin: 12/01/21 08:02 Dose: 100 mg Documented by: Duloxetine HCl (Duloxetine 30 Mg Capsule) 60 mg PO QHS [facility] Last Admin: 11/30/21 20:55 Dose: 60 mg Documented by: Furosemide (Furosemide 40 Mg Tablet) 40 mg PO SuTuThSa@0900 [facility] Last Admin: 12/01/21 08:02 Dose: 40 mg Documented by: Glucose (Dextrose 31 Gm Oral.Susp) 15 gm PO PRN PRN PRN Reason: Hypoglycemia Hydromorphone HCl (Hydromorphone 2 Mg Tablet) 4 mg PO Q4HP PRN; Protocol PRN Reason: Per Pain Protocol Last Admin: 12/01/21 16:24 Dose: 4 mg Documented by: Hydromorphone HCl (Hydromorphone 1 Mg/Ml Syringe) 1 mg IV Q4HP PRN; Protocol PRN Reason: Per Pain Protocol Last Admin: 12/01/21 12:50 Dose: 1 mg Documented by: Albumin Human (Buminate) 12.5 gm in 50 mls @ 100 mls/hr IV Q2HP PRN PRN Reason: Hypotension Last Infusion: 11/29/21 12:05 Dose: Infused Documented by: Vancomycin HCl 1,500 mg/ (Sodium Chloride) 500 mls @ 333.3 mls/hr IV ONCE ONE; Protocol Stop: 12/02/21 15:30 Insulin Glargine (Insulin Glargine, Human 1 Unit/0.01 Ml) 10 unit SQ [facility] Last Admin: 11/30/21 20:54 Dose: 10 unit Documented by: Insulin Human Lispro (Insulin Lispro 1 Unit/0.01 Ml Unit) 0 unit SQ [facility]; Protocol Last Admin: 12/01/21 16:24 Dose: Not Given Documented by: Levofloxacin (Levofloxacin 500 Mg Tablet) 500 mg PO Q48H [facility]; Protocol Metronidazole (Metronidazole 500 Mg Tablet) 500 mg PO Q8 [facility]; Protocol Last Admin: 12/01/21 14:57 Dose: 500 mg Documented by: Naloxone HCl (Naloxone Hcl 0.4 Mg/Ml Vial) 0.4 mg IV Q10M PRN PRN Reason: Opiate Reversal Omeprazole (Omeprazole 20 Mg Capsule) 20 mg PO QHS [facility] Last Admin: 11/30/21 20:54 Dose: 20 mg Documented by: Ondansetron HCl (Ondansetron 4 Mg/2 Ml Vial) 4 mg IV Q6HP PRN PRN Reason: Nausea And Vomiting Methylphenidate Hcl (5 Mg Tablet) 1 dose PO [facility] Last Admin: 11/30/21 20:41 Dose: Not Given Documented by: Senna (Sennosides 1 Tablet) 2 tab PO [facility] Last Admin: 11/30/21 20:54 Dose: 2 tab Documented by: Sevelamer Carbonate (Sevelamer 800 Mg Tablet) 800 mg PO TIDCC [facility] Last Admin: 12/01/21 11:17 Dose: 800 mg Documented by: Sodium Chloride (0.9 % Sodium Chloride 10 Ml Syringe) 10 ml IV Q8 [facility] Last Admin: 12/01/21 14:58 Dose: 10 ml Documented by: Impressions Impression: bone cultures No growth x2 A/P Narrative A/P Narrative: osteomyelitis right foot metatarsals and tarsals high risk foot for limb loss Plan of Treatment: Monitor ESR and CRP while treating osteomyelitis NG for bone culturesx2 Edema improved pt with considerable pain one time dose 1mg hydromorphone IV one time dose 25mg phenergan IV -MSSA wound culture right foot performed in office on the day of admission NWB with minimal HWB to bathroom and back only. Appreciate and agree nephrology and hospitalist abx discussion Vanco as per levels to be followed by nephrology Overall, improvement continues will change dressing tomorrow am Time Spent With Patient Time: Total time spent is greater than 50% in coordination of care (as documented) at patient's floor/unit and/or counseling patient: Total time spent with greater than 50% in coordination of care (as documented) at patient's floor/unit and/or counseling patient:: 15 - 24 minutes
[2021-12-01] MEDS: ARIPIPRAZOLE 5 MG TABLET PO SCH (21:47)
[2021-12-01] MEDS: SENNOSIDES 1 TABLET PO SCH (21:48)
[2021-12-01] MEDS: OMEPRAZOLE 20 MG CAPSULE PO SCH (21:49)
[2021-12-01] MEDS: DULoxetine 30 MG CAPSULE PO SCH (21:49)
[2021-12-01] MEDS: INSULIN GLARGINE, HUMAN 1 UNIT/0.01 ML SQ SCH (23:04)
[2021-12-01] MEDS: amLODIPine 10 MG TABLET PO SCH (23:05)
[2021-12-02] MEDS: metroNIDAZOLE 500 MG TABLET PO SCH ×3 (04:45→21:31)
[2021-12-02] MEDS: HYDROmorphone 2 MG TABLET PO PRN ×3 (04:45→15:19)
[2021-12-02] MEDS: 0.9 % SODIUM CHLORIDE 10 ML SYRINGE IV SCH ×3 (04:46→22:01)
[2021-12-02] MEDS: HYDROmorphone 1 MG/ML SYRINGE IV PRN ×4 (07:03→21:53)
[2021-12-02] MEDS: INSULIN LISPRO 1 UNIT/0.01 ML UNIT SQ SCH ×4 (07:06→21:32)
[2021-12-02] MEDS: APIXABAN 5 MG TABLET PO SCH ×2 (08:07→21:52)
[2021-12-02] MEDS: CARVEDILOL 12.5 MG TABLET PO SCH ×2 (08:07→21:31)
[2021-12-02] MEDS: DOCUSATE SODIUM 100 MG CAPSULE PO SCH ×2 (08:07→21:31)
[2021-12-02] MEDS: SEVELAMER 800 MG TABLET PO SCH ×3 (08:07→19:30)
--- NOTE | 2021-12-02 08:15 | Orthopedic Progress Note ---
SUBJECTIVE Subjective Patient information: Note initiated : 12/02/21 at 8:04 am Service Date, if different from initiated Date: [] Patient: Paige Lemos 51 y/o F admitted on 11/26/21 for Osteomyelitis. Chief Complaint: [limb threatening infection right lower extremity] Principal diagnosis: Right foot osteomyelitis by MRI Interval history: improved pain, edema and decreased signs of infection right foot Pertinent ROS: no n/v/ns/c/sob/cp Constitutional Vitals: Vital Signs Temp Pulse Resp BP Pulse Ox 97.9 F 67 16 145/80 93 12/02/21 07:44 12/02/21 07:44 12/02/21 07:44 12/02/21 07:44 12/02/21 07:44 Period Temp Pulse Resp BP Sys/Toro Pulse Ox Last 24 Hr 97.9 F-98.4 F 52-67 16-18 126-151/50-80 93-100 Intake and Output 12/01/21 12/02/21 12/02/21 21:59 05:59 13:59 Intake Total 840 Output Total 200 Balance -200 840 Weight 218 lb 6 oz Intake & Output: Intake & Output 12/01/21 12/02/21 12/02/21 21:59 05:59 13:59 Intake Total 840 Output Total 200 Balance -200 840 Weight 218 lb 6 oz Intake: Oral 840 Output: Void Amount 200 Other: Meal Dinner Percent of Meal Consumed 100% Feeding Ability Independent Urine Appearance Clear Urine Color Dark Carlie Urine Odor Normal # Voids 1 Skin Additional comments: right foot sub forefoot bone probing ulceration 1.5cmx1.5cm, minimal serous drainage, decrease edema and pain OBJ DATA Labs CBC & Chem 7: 12/01/21 06:27 12/01/21 06:27 Labs: Abnormal Lab Results 12/01/21 12/01/21 11/29/21 06:27 06:27 13:28 RBC 2.85 L Hgb 8.3 L 8.7 L Hct 27.1 L MCHC 30.6 L RDW [place] % (Auto) Eos % (Auto) 9.1 H Lymph # (Auto) 1.17 L Sodium 128 L Chloride 95 L Carbon Dioxide 17 L BUN 33 H Creatinine 4.6 H Glucose Phosphorus 5.5 H C-Reactive Protein 2.90 H 11/29/21 11/29/21 08:43 08:43 RBC 2.68 L Hgb 7.8 L Hct 24.6 L MCHC RDW 14.6 H [place] % (Auto) 12.5 H Eos % (Auto) Lymph # (Auto) 1.31 L Sodium 128 L Chloride 95 L Carbon Dioxide 17 L BUN 47 H Creatinine 5.0 H* Glucose 127 H Phosphorus 5.4 H C-Reactive Protein Meds: Medications Acetaminophen (Acetaminophen 325 Mg Tablet) 650 mg PO Q6HP PRN; Protocol PRN Reason: Per Pain Protocol/Fever > 101 Amlodipine Besylate (Amlodipine 10 Mg Tablet) 10 mg PO QPM [facility] Last Admin: 12/01/21 23:05 Dose: 10 mg Documented by: Apixaban (Apixaban 5 Mg Tablet) 2.5 mg PO BID [facility] Last Admin: 12/01/21 21:48 Dose: 2.5 mg Documented by: Carvedilol (Carvedilol 12.5 Mg Tablet) 25 mg PO BID [facility] Last Admin: 12/01/21 21:48 Dose: 25 mg Documented by: Darbepoetin Daniel (Darbepoetin Daniel 100 Mcg/Ml Vial) 100 mcg IV Q7D [facility] Last Admin: 11/29/21 09:42 Dose: 100 mcg Documented by: Dextrose (Dextrose 50% 50 Ml Vial) 0 ml IV UD PRN PRN Reason: Per Sliding Scale Diagnostic Test (Pha) (Accu-Chek 1 Each Strip) 1 each FS ACHS [facility] Last Admin: 12/02/21 07:05 Dose: 1 each Documented by: Docusate Sodium (Docusate Sodium 100 Mg Capsule) 100 mg PO BID [facility] Last Admin: 12/01/21 21:48 Dose: 100 mg Documented by: Duloxetine HCl (Duloxetine 30 Mg Capsule) 60 mg PO QHS [facility] Last Admin: 12/01/21 21:49 Dose: 60 mg Documented by: Furosemide (Furosemide 40 Mg Tablet) 40 mg PO SuTuThSa@0900 [facility] Last Admin: 12/01/21 08:02 Dose: 40 mg Documented by: Glucose (Dextrose 31 Gm Oral.Susp) 15 gm PO PRN PRN PRN Reason: Hypoglycemia Hydromorphone HCl (Hydromorphone 2 Mg Tablet) 4 mg PO Q4HP PRN; Protocol PRN Reason: Per Pain Protocol Last Admin: 12/02/21 04:45 Dose: 4 mg Documented by: Hydromorphone HCl (Hydromorphone 1 Mg/Ml Syringe) 1 mg IV Q4HP PRN; Protocol PRN Reason: Per Pain Protocol Last Admin: 12/02/21 07:03 Dose: 1 mg Documented by: Albumin Human (Buminate) 12.5 gm in 50 mls @ 100 mls/hr IV Q2HP PRN PRN Reason: Hypotension Last Infusion: 11/29/21 12:05 Dose: Infused Documented by: Vancomycin HCl 1,500 mg/ (Sodium Chloride) 500 mls @ 333.3 mls/hr IV ONCE ONE; Protocol Stop: 12/02/21 15:30 Insulin Glargine (Insulin Glargine, Human 1 Unit/0.01 Ml) 10 unit SQ [facility] Last Admin: 12/01/21 23:04 Dose: 10 unit Documented by: Insulin Human Lispro (Insulin Lispro 1 Unit/0.01 Ml Unit) 0 unit SQ [facility]; P rotocol Last Admin: 12/02/21 07:06 Dose: Not Given Documented by: Levofloxacin (Levofloxacin 500 Mg Tablet) 500 mg PO Q48H [facility]; Protocol Metronidazole (Metronidazole 500 Mg Tablet) 500 mg PO Q8 [facility]; Protocol Last Admin: 12/02/21 04:45 Dose: 500 mg Documented by: Naloxone HCl (Naloxone Hcl 0.4 Mg/Ml Vial) 0.4 mg IV Q10M PRN PRN Reason: Opiate Reversal Omeprazole (Omeprazole 20 Mg Capsule) 20 mg PO QHS [facility] Last Admin: 12/01/21 21:49 Dose: 20 mg Documented by: Ondansetron HCl (Ondansetron 4 Mg/2 Ml Vial) 4 mg IV Q6HP PRN PRN Reason: Nausea And Vomiting Methylphenidate Hcl (5 Mg Tablet) 1 dose PO [facility] Last Admin: 12/01/21 23:06 Dose: Not Given Documented by: Senna (Sennosides 1 Tablet) 2 tab PO [facility] Last Admin: 12/01/21 21:48 Dose: 2 tab Documented by: Sevelamer Carbonate (Sevelamer 800 Mg Tablet) 800 mg PO TIDCC [facility] Last Admin: 12/01/21 17:13 Dose: 800 mg Documented by: Sodium Chloride (0.9 % Sodium Chloride 10 Ml Syringe) 10 ml IV Q8 [facility] Last Admin: 12/02/21 04:46 Dose: 10 ml Documented by: A/P Narrative A/P Narrative: Rx for dressings on chart- foot re-dressed today fu with Dawson Eugene [place] [facility] [place] refer to [place] in [place] appreciate Dr Barriga following with antibiotic care NWB with surgical shoe and rollabout walker(pt has from prior foot infection) OK to hwb right foot to bathroom and back Plan of Treatment: Monitor ESR and CRP while treating osteomyelitis NG for bone culturesx2 Edema improved pt with considerable pain one time dose 1mg hydromorphone IV one time dose 25mg phenergan IV -MSSA wound culture right foot performed in office on the day of admission NWB with minimal HWB to bathroom and back only. Appreciate and agree nephrology and hospitalist abx discussion Vanco as per levels to be followed by nephrology Overall, improvement continues will change dressing tomorrow am Time Spent With Patient Time: Total time spent is greater than 50% in coordination of care (as documented) at patient's floor/unit and/or counseling patient:
[2021-12-02] MEDS ORDERED: LEVOFLOXACIN 500 MG TABLET PO SCH (09:00)
--- NOTE | 2021-12-02 10:38 | Internal Med Progress Note ---
SUBJECTIVE Subjective Patient information: Note initiated : 12/02/21 at 10:36 am Service Date, if different from initiated Date: [] Patient: Paige Lemos 51 y/o F admitted on 11/26/21 for Osteomyelitis. Chief Complaint: [] Principal diagnosis: Right foot osteomyelitis by MRI Interval history: Ms. 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 In the emergency department, the patient had a right foot MRI without contrast that showed findings consistent with osteomyelitis involving the second through fourth metatarsals as well as several tarsal bones. The patient was transferred to [facility] due to lack of acute dialysis coverage at [facility]. Prior to transfer, the patient reported that she received 1 dose of metronidazole IV. Upon arrival to [facility], the patient stable. She has edema around her right foot and a chronic appearing ulcer at the anterior plantar portion of her right foot. Additionally, the patient has edema up to her right knee. The patient denies fevers and chills, her main complaint is right foot pain and nausea. We discussed the plan that would include surgical bone biopsies followed by initiation of broad-spectrum antibiotics then de-escalation based on culture results. We also discussed CODE STATUS, the patient wishes to be full code. 11/27 Afebrile overnight, received hemodialysis today. Dr. Eugene with podiatry will obtain surgical biopsies this afternoon. Will start vancomycin and Zosyn prior to surgery. 11/28 Surgical biopsies planned for today, foot edema somewhat improved. 11/29 Surgical cultures from 11/28 pending. 11/30 Surgical cultures showing no growth to date and unlikely to grown any organisms. Tentative plan for empiric antibiotics is IV Vancomycin and oral Levofloxacin and Metronidazole. Started Levofloxacin and Metronidazole to assess GI tolerance especially to Metronidazole. Discontinued Zosyn. 12/01 Tolerating oral metronidazole well so far. Surgical cultures continues to show no growth to date. The plan for antibiotics continues to be vancomycin IV once or twice a week depending on trough levels (patient's home dialysis does not remove vancomycin as efficiently as conventional hemodialysis she needs), trough levels will be followed by Dr. Barriga for vancomycin dosing and frequency adjustments, the patient will also be on oral renally dosed levofloxacin and oral metronidazole as long as she tolerates this without GI side effects. Monitor ESR and CPR. Follow-up with Dr. Eugene in podiatry clinic. 12/02 Patient continues on antibiotics. Getting hemodialysis today. Review of Systems: denies headache/fever/chills/nausea/vomiting/chest or abdominal pain/cough/dyspnea/diarrhea. Otherwise see above. Constitutional Vitals: Vital Signs Temp Pulse Resp BP Pulse Ox 97.9 F 67 16 145/80 93 12/02/21 07:44 12/02/21 07:44 12/02/21 07:44 12/02/21 07:44 12/02/21 07:44 Period Temp Pulse Resp BP Sys/Toro Pulse Ox Last 24 Hr 97.9 F-98.4 F 52-67 16-18 126-151/50-80 93-100 Intake and Output 12/01/21 12/02/21 12/02/21 21:59 05:59 13:59 Intake Total 840 Output Total 200 Balance -200 840 Weight 99.053 kg Intake & Output: Intake & Output 12/01/21 12/02/21 12/02/21 21:59 05:59 13:59 Intake Total 840 Output Total 200 Balance -200 840 Weight 99.053 kg Intake: Oral 840 Output: Void Amount 200 Other: Meal Dinner Percent of Meal Consumed 100% Feeding Ability Independent Urine Appearance Clear Urine Color Dark Carlie Urine Odor Normal # Voids 1 Exam: General: Alert, Awake, No acute Distress, obese Eyes/N/T: EOMI, Head/Neck: neck supple, CV: RRR, No murmurs, Pulm: Clear b/l, no wheezing/rhonchi/rales Abd: soft, nontender, +BS x4 Ext: no clubbing/cyanosis. Left UE fistula. Right foot/leg edema/erythema Neuro: Alert, no focal deficits, moves all extremities, Skin: warm/dry OBJ DATA Labs CBC & Chem 7: 12/01/21 06:27 12/01/21 06:27 Labs: Abnormal Lab Results 12/01/21 12/01/21 11/29/21 06:27 06:27 13:28 RBC 2.85 L Hgb 8.3 L 8.7 L Hct 27.1 L MCHC 30.6 L Eos % (Auto) 9.1 H Lymph # (Auto) 1.17 L Sodium 128 L Chloride 95 L Carbon Dioxide 17 L BUN 33 H Creatinine 4.6 H Phosphorus 5.5 H C-Reactive Protein 2.90 H Meds: Medications Acetaminophen (Acetaminophen 325 Mg Tablet) 650 mg PO Q6HP PRN; Protocol PRN Reason: Per Pain Protocol/Fever > 101 Amlodipine Besylate (Amlodipine 10 Mg Tablet) 10 mg PO QPM [facility] Last Admin: 12/01/21 23:05 Dose: 10 mg Documented by: Apixaban (Apixaban 5 Mg Tablet) 2.5 mg PO BID [facility] Last Admin: 12/02/21 08:07 Dose: 2.5 mg Documented by: Carvedilol (Carvedilol 12.5 Mg Tablet) 25 mg PO BID [facility] Last Admin: 12/02/21 08:07 Dose: 25 mg Documented by: Darbepoetin Daniel (Darbepoetin Daniel 100 Mcg/Ml Vial) 100 mcg IV Q7D [facility] Last Admin: 11/29/21 09:42 Dose: 100 mcg Documented by: Dextrose (Dextrose 50% 50 Ml Vial) 0 ml IV UD PRN PRN Reason: Per Sliding Scale Diagnostic Test (Pha) (Accu-Chek 1 Each Strip) 1 each FS ACHS [facility] Last Admin: 12/02/21 07:05 Dose: 1 each Documented by: Docusate Sodium (Docusate Sodium 100 Mg Capsule) 100 mg PO BID [facility] Last Admin: 12/02/21 08:07 Dose: 100 mg Documented by: Duloxetine HCl (Duloxetine 30 Mg Capsule) 60 mg PO QHS [facility] Last Admin: 12/01/21 21:49 Dose: 60 mg Documented by: Furosemide (Furosemide 40 Mg Tablet) 40 mg PO SuTuThSa@0900 [facility] Last Admin: 12/01/21 08:02 Dose: 40 mg Documented by: Glucose (Dextrose 31 Gm Oral.Susp) 15 gm PO PRN PRN PRN Reason: Hypoglycemia Hydromorphone HCl (Hydromorphone 2 Mg Tablet) 4 mg PO Q4HP PRN; Protocol PRN Reason: Per Pain Protocol Last Admin: 12/02/21 09:52 Dose: 4 mg Documented by: Hydromorphone HCl (Hydromorphone 1 Mg/Ml Syringe) 1 mg IV Q4HP PRN; Protocol PRN Reason: Per Pain Protocol Last Admin: 12/02/21 07:03 Dose: 1 mg Documented by: Albumin Human (Buminate) 12.5 gm in 50 mls @ 100 mls/hr IV Q2HP PRN PRN Reason: Hypotension Last Infusion: 11/29/21 12:05 Dose: Infused Documented by: Vancomycin HCl 1,500 mg/ (Sodium Chloride) 500 mls @ 333.3 mls/hr IV ONCE ONE; Protocol Stop: 12/02/21 15:30 Insulin Glargine (Insulin Glargine, Human 1 Unit/0.01 Ml) 10 unit SQ [facility] Last Admin: 12/01/21 23:04 Dose: 10 unit Documented by: Insulin Human Lispro (Insulin Lispro 1 Unit/0.01 Ml Unit) 0 unit SQ [facility]; Protocol Last Admin: 12/02/21 07:06 Dose: Not Given Documented by: Levofloxacin (Levofloxacin 500 Mg Tablet) 500 mg PO Q48H [facility]; Protocol Last Admin: 12/02/21 09:17 Dose: 500 mg Documented by: Metronidazole (Metronidazole 500 Mg Tablet) 500 mg PO Q8 [facility]; Protocol Last Admin: 12/02/21 04:45 Dose: 500 mg Documented by: Naloxone HCl (Naloxone Hcl 0.4 Mg/Ml Vial) 0.4 mg IV Q10M PRN PRN Reason: Opiate Reversal Omeprazole (Omeprazole 20 Mg Capsule) 20 mg PO QHS [facility] Last Admin: 12/01/21 21:49 Dose: 20 mg Documented by: Ondansetron HCl (Ondansetron 4 Mg/2 Ml Vial) 4 mg IV Q6HP PRN PRN Reason: Nausea And Vomiting Methylphenidate Hcl (5 Mg Tablet) 1 dose PO [facility] Last Admin: 12/01/21 23:06 Dose: Not Given Documented by: Senna (Sennosides 1 Tablet) 2 tab PO [facility] Last Admin: 12/01/21 21:48 Dose: 2 tab Documented by: Sevelamer Carbonate (Sevelamer 800 Mg Tablet) 800 mg PO [facility] Last Admin: 12/02/21 08:07 Dose: 800 mg Documented by: Sodium Chloride (0.9 % Sodium Chloride 10 Ml Syringe) 10 ml IV Q8 [facility] Last Admin: 12/02/21 04:46 Dose: 10 ml Documented by: A/P Narrative A/P Narrative: A: #Osteomyelitis Right 2nd-4th MT & several Tarsal bones: #Chronic right diabetic foot ulcer: #Hyponatremia, chronic: #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 Eugene following, Pending bone biopsies -Vancomycin IV per pharmacy, outpatient dosing by Dr. Barriga. Levofloxacin and Metronidazole -No PICC line due to ESRD. -Nephrology following for inpatient hemodialysis -basal and SSI -Eliquis 2.5 mg twice daily. -Home amlodipine, carvedilol, Lasix, Abilify, duloxetine, methylphenidate, omeprazole, sevelamer. -Case management following to assist with logistics for IV vancomycin antibiotic infusions. -Disposition: Anticipate home on empiric antibiotics for at least 6 weeks, potentially followed by suppressive oral antibiotic therapy. --Follow up with podiatry after discharge. 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
[2021-12-02 13:48] LABS: Basophils # (Auto) 0.01 K/mcL (0.00-0.30); Basophils % (Auto) 0.2 % (0.0-2.0); Eosinophils # (Auto) 0.36 K/mcL (0.00-0.70); Eosinophils % (Auto) 8.4 % (0.0-7.0); Hematocrit 27.5 % (34.1-44.9); Lymphocytes # (Auto) 0.71 K/mcL (1.50-4.80); Lymphocytes % (Auto) 16.5 % (15.5-49.0); Mean Cell Volume 89.6 fL (80.0-100.0); Mean Corpuscular HGB Conc 32.7 g/dL (31.0-36.0); Mean Platelet Volume 9.4 fL (7.4-10.4); Monocytes # (Auto) 0.35 K/mcL (0.10-0.90); Monocytes % (Auto) 8.1 % (1.0-12.0); Neutrophils % (Auto) 66.8 % (38.0-78.0); Platelet Count 464 K/mcL (140-440); RBC 3.07 M/mcL (3.59-5.38); Red Cell Distribution Width 14.4 % (11.5-14.5); WBC 4.3 K/mcL (4.5-11.0)
--- NOTE | 2021-12-02 13:49 | Nephrology Progress Note ---
SUBJECTIVE Subjective Patient information: Note initiated : 12/02/21 at 1:47 pm Service Date, if different from initiated Date: [] Patient: Paige Lemos 51 y/o F admitted on 11/26/21 for Osteomyelitis. Chief Complaint: [right foot pain] Principal diagnosis: Right foot osteomyelitis by MRI Interval history: For Dialysis, vanco levels, Vancomycin 1.5 gm . The following were not performed: AVF and bilateral upper extremity doppler interogation. *Vanco 1.5 gm IV post HD Thursday11/29/2021 and random preHD level 11:06 hr and true post HD trough 14:56 on 12/02/2021 Doppler Left upper ARM AVF (December 02, 2021): INDICATION: AV fistulogram and dppler flow TECHNIQUE: Grayscale and color flow Doppler spectral imaging COMPARISON: Previous examination dated 10/29/2021 FINDINGS: Brachial artery to basilic vein fistula. The fistula is patent. No hematoma or pseudoaneurysm. There is elevated velocity at the anastomosis and within the distal basilic vein at the anastomosis. Elevated flow velocity measures 684 cm/s. In anatomic stenosis is not identified but this velocity is suspicious for 50% diameter stenosis. Follow-up examination recommended. Outflow vein is otherwise normal. Normal axillary vein. There is slow flow within the left internal jugular vein. No complete occlusion. The left subclavian vein is not well visualized and appears thrombosed. There are multiple varices consistent with subclavian venous thrombosis. IMPRESSION: 1. Patent left brachial artery to basilic vein fistula 2. Velocity elevation at the fistula suggest stenosis but anatomic stenosis is not demonstrated 3. 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 Routine venous mapping for planned fistula creation COMPARISON: None. FINDINGS: Vessels in the right upper extremity are small in caliber. Right cephalic vein measures 1 mm in diameter. Right basilic vein measures 3 mm in diameter. IMPRESSION: Small caliber venous structures. Seen and evaluated before and during HD. MRI Right Foot 11/26/2021 All foot and bone aerobic, anaerobic and fungal cultures as well as MRSA screen (nares) and blood cultures from 2 separate sites are NO GROWTH on day of D/C (12/02/2021) 1. Due to policies, procedures and my desire to avoid picc line or CVC in right arm, I plan VANCOMYCIN 2 gm IV q WEDS AM via patient AVF with venous access by the dialysis nurse staff and administration of the vancomycin by outpatient infusion service. This will start on Saturday December 04, 2021 and run for 6 consecutive doses or 6 weeks. 2. A trough vancomycin level will be drawn every Thursday morning prior to administration of the vancomycin. It true trough as she will have home hemodialysis Thursday evening. 3. She will also have a CRP and sedimentation rate drawn every 2 weeks beginning December 11. 4. In addition to her routine hemodialysis blood work, she will have a CBC with differential drawn in 4 weeks on December 25, 2021. 5. Adjustments will be made based on her trough vancomycin level. After arranging all this I became aware of the bone biopsy pathology that showed no evidence of osteomyelitis in contrast to the MRI finding. Additionally, Dr. Eugene is no remark the bone was firm and not what he would expect with an osteomyelitic bone. I am no expert but perhaps we should consider the possibility that this patient does not have osteomyelitis but just foot pain and an abnormal MRI. Pertinent ROS: Nothing new Additional PMFSH (Level 3 Only): Nothing new Constitutional Vitals: Vital Signs Temp Pulse Resp BP Pulse Ox 36.5 C 65 18 122/81 95 12/02/21 11:38 12/02/21 13:41 12/02/21 11:38 12/02/21 13:41 12/02/21 11:38 Period Temp Pulse Resp BP Sys/Toro Pulse Ox Last 24 Hr 36.0 C-36.9 C 52-68 16-18 102-151/50-88 93-100 Intake and Output 12/01/21 12/02/21 12/02/21 21:59 05:59 13:59 Intake Total 840 Output Total 200 Balance -200 840 Weight 99.053 kg Intake & Output: Intake & Output 12/01/21 12/02/21 12/02/21 21:59 05:59 13:59 Intake Total 840 Output Total 200 Balance -200 840 Weight 99.053 kg Intake: Oral 840 Output: Void Amount 200 Other: Meal Dinner Percent of Meal Consumed 100% Feeding Ability Independent Urine Appearance Clear Urine Color Dark Carlie Urine Odor Normal # Voids 1 General appearance: average body habitus and no acute distress Head Head exam: Present normal inspection and normocephalic Eye Eye exam: Absent PERRL (Blind OS with opacification) Neck Additional comments: Few dilated vessels on the left side Respiratory Respiratory exam: Present CTAB Cardiovascular Cardiovascular exam: Present +S1 and +S2; Absent rubs or +S3 GI/Abdominal GI/Abdominal exam: Present diminished bowel sounds Extremities Exam Additional comments: Left arm AV fistula with good bruit and thrill The left arm itself is dilated consistent with what appears to be a left subclavian vein thrombosis and the development of varices to reroute blood flow into the SVC Neurological Exam Neurological exam: Present alert and CN II-XII intact Psychiatric Psychiatric exam: Present flat affect Skin Skin exam: Absent pallor, petechiae, rash or urticaria A/P Assessment and plan (1) Diabetic foot ulcer with osteomyelitis: Status: Chronic (2) Complication of arteriovenous dialysis fistula: Status: Acute (3) ESRD (end stage renal disease) on dialysis: Status: Chronic Comment: Q TTHFSun (4 tx per week) is her home HD schedule (4) Internal jugular (IJ) vein thromboembolism, acute: Status: Acute Comment: Found inadvertently at time of left upper arm AVF U/S study (5) Median arcuate ligament syndrome: Status: Acute (6) Type 1 diabetes mellitus with end-stage renal disease: Status: Acute (7) Anemia due to end stage renal disease: Status: Chronic Comment: As above (8) Secondary hyperparathyroidism of renal origin: Status: Chronic Comment: PTH improved from 133 to 65 phos is normal calcium is at upper limit of normal ct renvela and cholecalciferol will monitor and optimize meds if needed (9) 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 CM to arrange insurance to provide for infusion of vancomycin weekly via Outpatient Surgery with Dialysis to access and de-access AVF q Thursday 2.q Trough Vanco and q 2 week inflammatory biomarkers bu outpatient surgery prior to Vanco infusion. 3. I will monitor the lab work weekly and make adjustments as needed. 4. Dr Eugene will monitor her foot in the outpatient clinic 5. If gram negative or anerobic coverage is needed, this could be done with oral levoquin and metronidazole if anaerobic coverage is desired. 6. A baseline WBC, ESR and CRP should be obtained and monitored q month at a minimum. ESRD (end stage renal disease) on dialysis: Plan: Every //Thu/Thu per her usual routine schedule upon dischage. Vanco will be given on once a week between the HD sessions (3) Internal jugular (IJ) vein thromboembolism, acute: Assessment and plan: Suspect IJ catheter related Hence desire to AVOID any furthe PICC or CV catheters in right arm Plan: Continue Apixaban for 3 months andreassess Left IJ vessel by doppler U/S (4) Anemia due to end stage renal disease: Assessment and plan: Aranesp 100 ug IV q Thursday with inpatient HD due to increased blood loss to lab (5) Secondary hyperparathyroidism of renal origin: Assessment and plan: PO4 adequately controlled with Sevelemar ABSOLUTELY NO RIGHT SIDED PIC LINES OR CENTRAL VENOUS CATHETER IN THE PATIENT GIVEN THE TENUOUS NATURE OF HER LEFT AVF Narrative A/P Narrative: ok for D/C Follow up arrange, confirmed, re-vamped and spoke to everyone on multiple occasions to adapt the final plan to their particular concerns Plan of Treatment: As above Time Spent With Patient Time: Total time spent is greater than 50% in coordination of care (as documented) at patient's floor/unit and/or counseling patient: Total time spent with greater than 50% in coordination of care (as documented) at patient's floor/unit and/or counseling patient:: 50 - 70 minutes Attestation: sawyer
[2021-12-02 13:55] LABS: Erythrocyte Sedimentation Rate 84 mm/hr (0-30)
[2021-12-02] MEDS ORDERED: VANCOMYCIN 1,500 MG in 0.9 % SODIUM CHLORIDE 500 ML IV ONE (14:00)
[2021-12-02 14:15] LABS: ALT/SGPT < 5 U/L (<40); AST/SGOT 11 U/L (<32); Albumin 3.7 gm/dL (3.2-5.2); Albumin/Globulin Ratio 0.9 (1.0-2.3); Alkaline Phosphatase 51 U/L (39-117); Bilirubin,Direct < 0.2 mg/dL (0-0.3); Bilirubin,Total < 0.2 mg/dL (0.1-1.0); Blood Urea Nitrogen 29 mg/dL (6-20); Calcium 9.1 mg/dL (8.6-10.4); Carbon Dioxide 21 mmol/L (22-30); Chloride 92 mmol/L (96-108); Globulin 4.1 gm/dL (2.2-3.7); Glomerular Filtration Rate 15; Glucose 127 mg/dL (70-105); Lactate Dehydrogenase 147 U/L (135-225); Phosphorous 2.9 mg/dL (2.5-4.5); Triglycerides 211 mg/dL (<150); Uric Acid 3.2 mg/dL (2.5-8.0)
[2021-12-02 14:17] LABS: Vancomycin,Random 17.4 ug/mL
--- NOTE | 2021-12-02 16:24 | Ultrasound Report ---
INDICATION: Failing Left AVF, may need Right AVF TECHNIQUE: Routine grayscale and color flow Doppler spectral imaging. Routine venous mapping for planned fistula creation COMPARISON: None. FINDINGS: Vessels in the right upper extremity are small in caliber. Right cephalic vein measures 1 mm in diameter. Right basilic vein measures 3 mm in diameter. IMPRESSION: Small caliber venous structures. Interpreted and Authenticated by: Joe Sapp 12/02/21
--- NOTE | 2021-12-02 17:08 | Ultrasound Report ---
INDICATION: AV fistulogram and dppler flow TECHNIQUE: Grayscale and color flow Doppler spectral imaging COMPARISON: Previous examination dated 10/29/2021 FINDINGS: Brachial artery to basilic vein fistula. The fistula is patent. No hematoma or pseudoaneurysm. There is elevated velocity at the anastomosis and within the distal basilic vein at the anastomosis. Elevated flow velocity measures 684 cm/s. In anatomic stenosis is not identified but this velocity is suspicious for 50% diameter stenosis. Follow-up examination recommended. Outflow vein is otherwise normal. Normal axillary vein. There is slow flow within the left internal jugular vein. No complete occlusion. The left subclavian vein is not well visualized and appears thrombosed. There are multiple varices consistent with subclavian venous thrombosis. IMPRESSION: 1. Patent left brachial artery to basilic vein fistula 2. Velocity elevation at the fistula suggest stenosis but anatomic stenosis is not demonstrated 3. 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
[2021-12-02] MEDS ORDERED: PROMETHAZINE 25 MG/ML VIAL IV PRN (18:39)
[2021-12-02] MEDS: SENNOSIDES 1 TABLET PO SCH (21:28)
[2021-12-02] MEDS: ARIPIPRAZOLE 5 MG TABLET PO SCH (21:29)
[2021-12-02] MEDS: DULoxetine 30 MG CAPSULE PO SCH (21:29)
[2021-12-02] MEDS: amLODIPine 10 MG TABLET PO SCH (21:31)
[2021-12-02] MEDS: OMEPRAZOLE 20 MG CAPSULE PO SCH (21:31)
[2021-12-02] MEDS: INSULIN GLARGINE, HUMAN 1 UNIT/0.01 ML SQ SCH (21:52)
[2021-12-03] MEDS: HYDROmorphone 2 MG TABLET PO PRN ×4 (02:22→14:35)
[2021-12-03] MEDS: HYDROmorphone 1 MG/ML SYRINGE IV PRN ×3 (04:22→12:04)
[2021-12-03] MEDS: 0.9 % SODIUM CHLORIDE 10 ML SYRINGE IV SCH ×2 (06:38→14:41)
[2021-12-03] MEDS: metroNIDAZOLE 500 MG TABLET PO SCH ×2 (06:38→14:41)
[2021-12-03] MEDS: DOCUSATE SODIUM 100 MG CAPSULE PO SCH (07:53)
[2021-12-03] MEDS: SEVELAMER 800 MG TABLET PO SCH ×2 (07:53→12:16)
[2021-12-03] MEDS: APIXABAN 5 MG TABLET PO SCH (07:54)
[2021-12-03] MEDS: FUROSEMIDE 40 MG TABLET PO SCH (07:54)
[2021-12-03] MEDS: INSULIN LISPRO 1 UNIT/0.01 ML UNIT SQ SCH ×2 (08:07→12:07)
[2021-12-03] MEDS: CARVEDILOL 12.5 MG TABLET PO SCH (08:55)
--- NOTE | 2021-12-20 10:05 | Operative Note ---
DATE OF OPERATION: 11/28/2021 PREOPERATIVE DIAGNOSIS: Osteomyelitis, right midfoot. POSTOPERATIVE DIAGNOSIS: Osteomyelitis, right midfoot. PROCEDURE: Bone biopsy, right cuboid and right lateral cuneiform. PATHOLOGY: Bone and wound culture, culture and sensitivity of the cuboid and lateral cuneiform SURGEON: Dawson Eugene DPM. ANESTHESIA: Monitored anesthesia care. ESTIMATED BLOOD LOSS: Minimal. MATERIALS USED: 4-0 nylon. COMPLICATIONS: None. FINDINGS: Firm bone without purulent discharge noted. PREAMBLE: The patient is a 51-year-old, type 1 diabetic with end-stage renal disease and history of chronic foot fractures with prior amputations of her lesser digits and partial metatarsals on the right side. The patient presented with sepsis and was admitted to [facility] for care and antibiotics coordinated with hemodialysis. MRI was performed and found to have increased signal on the cuboid, lateral cuneiform and navicular. The patient had a bone biopsies performed in the right metatarsal prior, which were negative. We discussed three options for her. One would be a below-knee amputation. The other would be a transmetatarsal amputation with treatment of IV-style antibiotics through hemodialysis or bone biopsies and treatment with antibiotics and wound care. Appreciative of Dr. Barriga for helping with antibiotic treatment, and I have also appreciated Dr. Martinez for wound care suggestions. Given the appearance of the foot, which was much better after some antibiotics, it was felt that despite the risks and the possibility of further need for amputation, it was worth giving the antibiotics and wound care a try prior to performing any further amputations. This was the patient's request. DESCRIPTION OF PROCEDURE: The patient was brought to the operating room and identified by anesthesia staff and myself. Once an adequate plane of anesthesia was obtained, the right foot was prepped and draped in normal sterile fashion. A linear incision was created over the cuboid and blunt dissection used to gain access down to the bone. A Jamshidi needle was used to remove a cylinder of bone and this was taken for pathology and culture and sensitivity. The identical procedure was performed over the lateral cuneiform. Both areas were flushed with normal saline and closed with 4-0 nylon. There was not a considerable amount of bleeding noted during the procedure and a tourniquet was not used. Dry sterile dressing was applied. The patient had been given instructions to remain nonweightbearing at this time. She was readmitted to the floor without issue. RIMA:kingston Job ID: [id number] Doc ID: [id number] Dawson Eugene DPM
== END 2021-12-03 15:50 | disposition home health service (06) | DRG 629 ==
LOC: MEDSUR 20:10
PROVIDERS: ADMIT Internal Medicine; ATTEND Internal Medicine

== ENCOUNTER 2022-10-20 12:49 | Inpatient (IN) ==
--- NOTE | 2022-10-20 13:21 | Emergency Department Note ---
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 Patient has been seeing Dr. Puentes for several months. The wound has been nonhealing. She is doing hyperbaric oxygen therapy. She has not been on antibiotics. Patient takes 4 mg of Dilaudid every 4-6 hours for her median cruciate ligament syndrome. She complains of severe left heel and foot pain, notes that the Dilaudid is not really helpful for this. She has been walking on the foot. She also has a wound that is slowly healing to the right foot status post lateral toe amputation. The patient has had 30 hyperbaric chamber treatments for her chronic right foot wound. Related Data Home Medications Medication Instructions Recorded Confirmed docusate sodium 100 mg capsule 100 mg PO DAILYP PRN Constipation 12/05/1909/02 (Colace) bisacodyl 5 mg tablet,delayed 10 mg PO QDAY 03/20/20 09/02/22 release (Dulcolax (bisacodyl)) clobetasol 0.05 % scalp solution 1 applic topical QDAY 03/20/20 09/02/22 diphenhydramine HCl 25 mg capsule 25 - 75 mg PO Q6H PRN Allergy 03/20/20 09/02/22 (Benadryl) Symptoms methylphenidate HCl 5 mg tablet 5 mg PO HS 06/26/21 09/02/22 omeprazole 20 mg capsule,delayed 20 mg PO QHS 06/26/21 09/02/22 release doxycycline hyclate 100 mg tablet 100 mg PO QDAY 02/10/22 09/02/22 Previous Rx's Medication Instructions Recorded naloxone 4 mg/actuation nasal 4 mg intranasal Q2M PRN opioid 11/18/21 spray (Narcan) overdose #1 ea apixaban 2.5 mg tablet 2.5 mg PO BID Left IJ thrombosis 03/31/22 (not completly occluding vessel #60 tabs furosemide 40 mg tablet 40 mg PO BID #60 tabs 08/16/22 insulin lispro 100 unit/mL 10 unit (0.1 mL) subcut TID #15 mL 05/22/22 subcutaneous pen (Humalog KwikPen (U-100) Insulin) ondansetron 4 mg disintegrating 4 mg PO Q4H PRN for 05/22/22 tablet nausea/vomiting #30 tabs duloxetine 60 mg capsule,delayed 120 mg PO QDAY #180 caps 06/10/22 release insulin glargine 100 unit/mL (3 15 unit (0.15 mL) subcut BID #15 mL 07/11/22 mL) subcutaneous pen (Lantus Solostar U-100 Insulin) levothyroxine 75 mcg tablet 75 mcg PO QDAY #90 tabs 08/19/22 hydromorphone 4 mg tablet 4 - 8 mg PO Q4H PRN Pain #180 tabs 09/02/22 aripiprazole 15 mg tablet 15 mg PO QHS #30 tabs 09/15/22 captopril 25 mg tablet 25 mg PO Q12H HTN #60 tabs 10/14/22 sevelamer carbonate 800 mg tablet 800 mg PO TIDCC high phosphorous 10/14/22 #180 tabs promethazine 50 mg tablet 50 mg PO Q6H PRN nausea and 10/17/22 vomiting #120 tabs Allergies Allergy/AdvReac Type Severity Reaction Status Date / Time aspirin Allergy Severe Anaphylaxis Verified 10/20/22 12:59 gabapentin Allergy Severe Anaphylaxis Verified 10/20/22 12:59 honey Allergy Severe Anaphylaxis Verified 10/20/22 12:59 metoclopramide Allergy Severe Anaphylaxis Verified 10/20/22 12:59 prochlorperazine Allergy Severe Anaphylaxis Verified 10/20/22 12:59 sumatriptan Allergy Severe Anaphylaxis Verified 10/20/22 12:59 tiagabine [From Gabitril] Allergy Severe Anaphylaxis Verified 10/20/22 12:59 adhesive Allergy Mild Blister Verified 10/20/22 12:59 ceftriaxone [From Rocephin] Allergy Mild Hives Verified 10/20/22 12:59 Penicillins Allergy Mild Hives Verified 10/20/22 12:59 topiramate [From Topamax] Allergy Mild Rash Verified 10/20/22 12:59 droperidol [From INAPSINE] AdvReac Severe Seizure Verified 10/20/22 12:59 ketamine AdvReac Intermediate Anxiety Verified 10/20/22 12:59 vancomycin AdvReac Intermediate Itching Verified 10/20/22 12:59 hydroxyzine AdvReac Mild Confusion Verified 10/20/22 12:59 morphine AdvReac Mild Blister Verified 10/20/22 12:59 Review of Systems ROS ROS Narrative: Narrative: All systems ED: reviewed and negative except as stated. [facility] Narrative Patient History Narrative: Narrative: Medical/Surgical/Family History All Active Problems (Updated 10/20/22 @ 23:20 by Jenelle Jain PA-C) Calcaneus fracture, left (Acute) Osteomyelitis (Acute) ESRD (end stage renal disease) (Acute) Type 2 diabetes mellitus treated with insulin (Acute) Medicare annual wellness visit, initial (Acute) Apnea (Chronic) Blindness of one eye (Chronic) Cataract (Chronic) Chronic pain (Chronic) Diabetes mellitus with renal manifestation (Chronic) Hypothyroidism (Chronic) History of kidney stones (Chronic) shelter current use of insulin (Chronic) Lumbar disc disease (Chronic) Microhematuria (Chronic) Nephrolithiasis (Chronic 12/09/12) Overweight (Chronic 12/09/12) Peripheral neuropathy (Chronic 12/09/12) Polyneuropathy in diabetes (Chronic) Proteinuria (Chronic) Diabetic retinopathy associated with diabetes mellitus due to underlying condition (Chronic) SOB (shortness of breath) (Chronic) MRSA (methicillin resistant Staphylococcus aureus) (Chronic) Vitamin D deficiency (Chronic 01/18/13) Hypertensive renal disease (Chronic) Secondary hyperparathyroidism of renal origin (Chronic) Low back pain (Chronic) Hypertension, essential, benign (Chronic) Right bundle branch block (RBBB) determined by electrocardiography (Chronic) Gastroparesis (Chronic) Chronic narcotic use (Chronic) At risk for allergic reaction to medication (Chronic) ESRD on hemodialysis (Chronic) Anemia due to end stage renal disease (Chronic ~12/09/12) Cervical mass (Chronic) Celiac artery stenosis (Chronic) Abdominal pain (Chronic) UTI (urinary tract infection) (Chronic) Hyperlipidemia (Chronic) RUQ abdominal pain (Chronic) Arterial obstructive disease (Chronic) Macular degeneration (Chronic) History of stroke (Chronic) Anxiety disorder (Chronic) Depression (Chronic) Sleep apnea (Chronic) Muscle pain (Chronic) Muscle weakness (Chronic) Kidney cyst, acquired (Chronic) Hematuria (Chronic) SMAS (superior mesenteric artery syndrome) (Chronic) Renal disease (Chronic) Hypoglycemia unawareness associated with type 1 diabetes mellitus (Acute) Diabetic infection of right foot (Acute) V-tach (Acute) Type 1 diabetes mellitus with end-stage renal disease (Acute) Median arcuate ligament syndrome (Acute) Internal jugular (IJ) vein thromboembolism, acute (Acute) Foot ulcer (Acute) ESRD (end stage renal disease) on dialysis (Chronic) Complication of arteriovenous dialysis fistula (Acute) Dialysis complication (Acute) Hypotension of hemodialysis (Acute) Diabetic foot ulcer with osteomyelitis (Chronic) Mesenteric artery syndrome (superior) (Acute) Pulmonary embolus (Acute) Atypical chest pain (Acute) Acute flank pain (Acute) Acute abdominal pain (Acute) Episodic ataxia with slurred speech (Acute) Medical History Abdominal pain Abdominal pain Abnormal weight gain Acidosis Anemia due to end stage renal disease (~12/09/12) As above Anxiety disorder Apnea Arterial obstructive disease At risk for allergic reaction to medication dystonic reactions to Reglan (metoclopramide), Compazine (prochlorperazine) and Inapsine (droperidol) Bleeding pseudoaneurysm of left brachiocephalic AV fistula Blindness of one eye left Calf pain Cataract Celiac artery stenosis Cervical mass Chest pain Chest pain Chronic narcotic use for neuropathy; Dr. Shyam Harper, [facility] Chronic pain Complications, dialysis, catheter, mechanical Constipation Cystitis Depression Diabetes mellitus with renal manifestation Diabetic retinopathy associated with diabetes mellitus due to underlying condition DM (diabetes mellitus), type 1 with neurological complications Dyspnea Edema of lower extremity pitted, severity estimated LT: 1+ and RT: 2+ ESRD on hemodialysis Flank pain Fluid overload Foot ulcer Fracture, foot Gastroparesis History of kidney stones History of stroke X 2 Hyperkalemia Hyperlipidemia Hypertension, essential, benign Hypertensive renal disease BP near goal, good BP readings at home ct current meds follow low sodium diet will follow and optimize if elevated next visit Hypothyroidism 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 of insulin Low back pain hx of laser disk Lumbar disc disease Macular degeneration Medicare annual wellness visit, initial Microhematuria MRSA (methicillin resistant Staphylococcus aureus) abscess 2006 Muscle pain Muscle weakness Nephrolithiasis (12/09/12) Nephropathy Orthopnea Overweight (12/09/12) Palpitation Pelvic pain Peripheral neuropathy (04/18/13) Pneumonia Polyneuropathy in diabetes Proteinuria Pulmonary embolus Pyelonephritis Renal disease END STAGE Retinal detachment Right bundle branch block (RBBB) determined by electrocardiography RUQ abdominal pain Secondary hyperparathyroidism of renal origin PTH improved from 133 to 65 phos is normal calcium is at upper limit of normal ct renvela and cholecalciferol will monitor and optimize meds if needed Sepsis Urosepsis was noted in chart note. Shoulder pain Sleep apnea SOB (shortness of breath) Staphylococcus aureus bacteremia UTI (lower urinary tract infection) UTI (urinary tract infection) UTI (urinary tract infection) UTI (urinary tract infection) Vision changes Vitamin D deficiency (01/18/13) Vitreous hemorrhage Vomiting Weakness Weakness of right lower extremity Surgical History History of appendectomy History of arthroscopy of right shoulder History of section History of cholecystectomy History of foot surgery History of hysterectomy with oophorectomy History of shoulder surgery Right shoulder. History of surgery Celiac Plexus Block Lt. L1 w/sed 10/27/2018 S/P arteriovenous (AV) fistula creation (02/10/18) Family History Father Cerebral infarction Essential hypertension Mother Type 1 diabetes mellitus Social History Smoking Status: Never smoker Alcohol Intake Frequency: former alcohol drinker Substance Use: does not use Exam Narrative Narrative: General: AOx3, NAD, nontoxic appearing. Pleasant and conversant. HEENT: PERRL, EOMI, normocephalic. Moist mucous membranes. Normal facies and normal dentition. Chest: Symmetric, no pain to palpation. Small IV access to the anterior chest Respiratory: Lungs clear to auscultation bilaterally. No respiratory distress. Unlabored breathing. Heart: Regular rate and rhythm, no murmurs/clicks/rubs. Abdomen: Non-tender, Non distended, normal bowel tones. No organomegaly. Extremities: Warm and well perfused. No edema. Left arm with AV fistula and g ood bruit. Right foot is wrapped in a dressing with a walking boot. Left foot has a 40 cm diameter nonhealing ulceration to the left calcaneus. There is a central area of exposure that appears to extend into the deep tissues and possibly to the bone. There is no drainage. The foot is warm to the touch with involvement of the bilateral malleoli. The leg is cool to the touch above the ankle without erythema or cellulitis. Neuro: No focal deficits. Cranial nerves II-XII grossly normal. Skin: Warm dry, no cyanosis. Psych: Normal mood and affect Heme/Lymph: No abnormal bruising Course Course Course Narrative: 52-year-old female brittle diabetic with chronic left calcaneal foot ulceration presents to the ER for rule out osteomyelitis initiation of IV antibiotics Reevaluation(s) Reevaluation #1: Obtain basic labs, CRP, sed rate, blood cultures Initiate IV vancomycin (apparently patient has pruritus with a vancomycin so will administer 50 mg of Benadryl with this). She has an allergy to penicillins and cephalosporins, so we will administer 750 mg of IV levofloxacin x1 dose to cover polymicrobial infection including possible Pseudomonas. Reevaluation #2: Left EJ access obtained with a 22-gauge by Owen the nurse repairer.. Unable to draw from this access. Unfortunately her previous CBC hemolyzed. Blood cultures have thus not been obtained. CRP is elevated at 3.9 Chemistry panel 131 sodium, 5.2 potassium, 82 BUN, creatinine 7.4, glucose 115 Reevaluation #3: CT of the left foot reveals an oblique fracture in the posterior inferior calcaneus that communicates with the adjacent cellulitis and infected fissure in the soft tissues. There is also a nondisplaced chronic transverse fracture of t he lateral malleoli or tip. There is moderate inflammation of the surrounding tissue consistent with cellulitis. Consultations Consultation #1: Dr. Jacob, hospitalist was consulted. He feels that this patient needs a hig her level of care with an interdisciplinary team to include infectious disease, podiatry, and vascular. Concern would be for failed outpatient management over many months, including 30+ sessions of hyperbaric therapy. She has not had a vascular study to date and would likely benefit from this to determine if there is enough vascular supply to heal the wound. At this time he is declining the patient for admission. Consultation #2: Consultation with the hospitalist, Dr. Lizarraga, and the orthopedic surgeon at [facility] in [place]. Because the patient is hemodynamically stable the orthopedist declined the patient stating that this can be managed non urgently. Recommend that we reach out to locations closer to our area. Consultation #3: Dr. Lee, orthopedic surgeon. At this time he feels that the patient should be managed with IV antibiotics to treat the osteomyelitis. He recommended against surgical intervention at this time. Agrees with vascular studies. Agrees with concern for impending below the knee amputation if she is unable to heal the ulceration. Vital Signs Vital signs: Vital Signs Temperature 97.2 F 10/20/22 12:56 Pulse Rate 82 10/20/22 12:56 Respiratory Rate 16 10/20/22 12:56 Blood Pressure 148/77 10/20/22 12:56 Pulse Oximetry (%) 100 10/20/22 12:56 Oxygen Delivery Method Room Air 10/20/22 12:56 Temperature 97.2 F 10/20/22 12:56 Pulse Rate 75 10/20/22 22:56 Respiratory Rate 16 10/20/22 12:56 Blood Pressure 164/69 10/20/22 22:31 Pulse Oximetry (%) 95 10/20/22 22:56 Oxygen Delivery Method Room Air 10/20/22 12:56 MDM MDM Narrative Medical decision making narrative: Left calcaneal fracture Complicated left calcaneal diabetic foot ulceration Probable underlying osteomyelitis ESRD on home dialysis every other day I discussed the case with Dr. Jacob, hospitalist here. He feels that she would be best served with an interdisciplinary team including vascular services, infectious disease, and podiatry. Concern would be for extremely poor vascularization of the extremity at high risk for BKA. She has already had multiple hyperbaric chamber treatments and ongoing debridement without improvement. She clearly has an open wound with communication with the bone with likely underlying osteomyelitis. She has been given IV vancomycin and levofloxacin, both renally dosed. She is agreeable to transfer to a higher level of care for advanced therapies. We are currently awaiting disposition. The patient did not finish her dialysis today. I have ordered a consultation with Dr. Weir for dialysis. I have signed the patient out to Dr. Priteo at change of shift. Please see his note for plan of care. I did discuss the case with Dr. Jacob who will re evaluate the patient in the morning and attempt to obtain a consult with podiatry, Dr. Hunt if he is available. Lab Data 10/20/22 14:23 Labs: Lab Results 10/20/22 10/20/22 10/20/22 Range/Units 14:23 14:23 14:23 WBC TNP RBC TNP Hgb TNP Hct TNP POC Hct (36-48) MCV TNP MCH TNP MCHC TNP RDW TNP Plt Count TNP MPV TNP Immature Gran % (Auto) TNP Neut % (Auto) TNP Lymph % (Auto) TNP Coffey % (Auto) TNP Eos % (Auto) TNP Baso % (Auto) TNP Lymph # (Auto) TNP Coffey # (Auto) TNP Eos # (Auto) TNP Baso # (Auto) TNP Immature Gran # TNP Absolute Neutrophils TNP Differential Comment TNP ESR TNP POC Sodium (133-145) Sodium 131 L (133-145) mmol/L POC Potassium (3.3-5.1) Potassium 5.5 H (3.3-5.1) mmol/L POC Chloride (96-108) Chloride 91 L (96-108) mmol/L Carbon Dioxide 24 (22-30) mmol/L POC Total CO2 (22-30) Anion Gap 16.0 (8.0-16.0) POC BUN (6-20) BUN 72 H (6-20) mg/dL Creatinine 5.5 H* (0.6-1.1) mg/dL POC Creatinine (0.6-1.2) GFR Calculation 8 Glucose 103 (70-105) mg/dL POC Glucose (70-105) Calcium 9.1 (8.6-10.4) mg/dL POC WB Ioniz Calcium (1.16-1.32) Phosphorus 6.1 H* (2.5-4.5) mg/dL C-Reactive Protein 3.90 H (0.03-0.80) mg/dL Albumin 3.7 (3.2-5.2) gm/dL 10/20/22 Range/Units 14:28 WBC RBC Hgb Hct POC Hct 27.0 L (36-48) MCV MCH MCHC RDW Plt Count MPV Immature Gran % (Auto) Neut % (Auto) Lymph % (Auto) Coffey % (Auto) Eos % (Auto) Baso % (Auto) Lymph # (Auto) Coffey # (Auto) Eos # (Auto) Baso # (Auto) Immature Gran # Absolute Neutrophils Differential Comment ESR POC Sodium 131 L (133-145) Sodium (133-145) mmol/L POC Potassium 5.2 H (3.3-5.1) Potassium (3.3-5.1) mmol/L POC Chloride 96 (96-108) Chloride (96-108) mmol/L Carbon Dioxide (22-30) mmol/L POC Total CO2 28.0 (22-30) Anion Gap (8.0-16.0) POC BUN 82 H (6-20) BUN (6-20) mg/dL Creatinine (0.6-1.1) mg/dL POC Creatinine 7.4 H* (0.6-1.2) GFR Calculation Glucose (70-105) mg/dL POC Glucose 115 H (70-105) Calcium (8.6-10.4) mg/dL POC WB Ioniz Calcium 1.13 L (1.16-1.32) Phosphorus (2.5-4.5) mg/dL C-Reactive Protein (0.03-0.80) mg/dL Albumin (3.2-5.2) gm/dL Discharge Plan Patient/Caregiver Discharge Instructions Pt seen by CUSTOM PROTECTION OFFICER/PA only: No Clinical Impression: Calcaneus fracture, left, Osteomyelitis, ESRD (end stage renal disease) Patient Disposition: Still a Patient Follow up with: Bridger Benites MD [Primary Care Provider] - Prescriptions: No Action diphenhydramine HCl [Benadryl] 25 mg capsule 25 - 75 mg PO Q6H PRN (Reason: Allergy Symptoms) Rx Instructions: Dialysis - 75 mg orally (25 mg tablet) every 6 hours prn Itching clobetasol 0.05 % solution 1 applic TOPICAL QDAY Rx Instructions: 1 hemanth applied topically (0.05% cream) once a day Apply thin layer to affected area(s) prn bisacodyl [Dulcolax (bisacodyl)] 5 mg tablet,delayed release (DR/EC) 10 mg PO QDAY Rx Instructions: 10 mg orally (5 mg delayed release tablet) once a day apixaban 2.5 mg tablet 2.5 mg PO BID Qty: 60 11RF Rx Instructions: Call if excessive bleeding from AVF occurs furosemide 40 mg tablet 40 mg PO BID Qty: 60 11RF insulin lispro [Humalog KwikPen Insulin] 100 unit/mL insulin pen 10 unit subcut TID Qty: 15 2RF ondansetron 4 mg tablet,disintegrating 4 mg PO Q4H PRN (Reason: for nausea/vomiting) Qty: 30 2RF duloxetine 60 mg capsule,delayed release(DR/EC) 120 mg PO QDAY Qty: 180 3RF insulin glargine [Lantus Solostar U-100 Insulin] 100 unit/mL (3 mL) insulin pen 15 unit subcut BID Qty: 15 2RF levothyroxine 75 mcg tablet 75 mcg PO QDAY Qty: 90 0RF aripiprazole 15 mg tablet 15 mg PO QHS Qty: 30 5RF sevelamer carbonate 800 mg tablet 800 mg PO TIDCC Qty: 180 12RF Rx Instructions: given any time with eating. captopril 25 mg tablet 25 mg PO Q12H Qty: 60 12RF Rx Instructions: Hold dose immediately before home HD treatment promethazine 50 mg tablet 50 mg PO Q6H PRN (Reason: nausea and vomiting) Qty: 120 1RF doxycycline hyclate 100 mg tablet 100 mg PO QDAY naloxone [Narcan] 4 mg/actuation spray,non-aerosol 4 mg intranasal Q2M PRN (Reason: opioid overdose) Qty: 1 0RF Rx Instructions: spray 1 dose into ONE nostril; alternate nostrils w each dose until help arrives hydromorphone 4 mg tablet 4 - 8 mg PO Q4H MDD 6 PRN (Reason: Pain) Qty: 180 0RF Rx Instructions: *MUST LAST 30 DAYS*; P/U 10/30, Start 10/30 docusate sodium [Colace] 100 mg capsule 100 mg PO DAILYP PRN (Reason: Constipation) methylphenidate HCl 5 mg Tablet 5 mg PO HS omeprazole 20 mg Capsule,Delayed Release(Dr/Ec) 20 mg PO QHS
[2022-10-20 14:32] LABS: POC Calcium, Ionized 1.13 (1.16-1.32); POC Creatinine 7.4 (0.6-1.2); POC Potassium 5.2 (3.3-5.1)
[2022-10-20] MEDS: HYDROmorphone 1 MG/ML SYRINGE IV PRN ×3 (15:11→21:28)
[2022-10-20] MEDS ORDERED: LEVOFLOXACIN 750 MG/150 ML BAG IV ONE ×2 (15:26→19:01)
[2022-10-20] MEDS ORDERED: diphenhydrAMINE 25 MG CAPSULE PO ONE (15:29)
--- NOTE | 2022-10-20 15:30 | Cat Scan Report ---
CLINICAL INFORMATION: Left medial calcaneal abscess COMPARISON: None. TECHNIQUE: 0.625 helical slices were obtained in the left foot and ankle. Following reconstruction, 2.5 mm sagittal, coronal and axial reformatted images were processed. MIPS , 3-D volume rendering and CPR images were also constructed. The exam was performed using radiation dose optimization techniques including, but not limited to, automated exposure control, adjustment of the mA and/or kV according to patient size and use of iterative reconstruction technique. FINDINGS: Both windows show a oblique fracture through the posterior inferior calcaneus which is contiguous with linear fissure in the overlying soft tissues. There is moderate inflammation in the surrounding soft tissues compatible with cellulitis. No evidence of discrete soft tissue abscess. Although a fracture is present, there there is no CT evidence of an Armani's abscess within the bone. No CT evidence for osteomyelitis in the foot or ankle. Marked hallux valgus, metatarsus abductus and hammertoe deformities of the first through fifth digits are all noted. A transverse nondisplaced chronic fracture through the lateral malleolus tip noted. Joint spaces are otherwise normal in width and alignment without arthritic change. IMPRESSION: 1. Oblique fracture in the posterior inferior calcaneus. Although, there is no specific evidence for osteomyelitis, the fracture communicates with adjacent cellulitis and an infected fissure in the soft tissues. For this reason, there could be osteomyelitis which is CT occult. There is no evidence of Armani's abscess however. 2. Severe hallux valgus, metatarsus abductus and hammertoe deformities first through fifth digits 3. Nondisplaced chronic transverse fracture of the lateral malleolar tip Interpreted and Authenticated by: Joe Guevara 10/20/22
[2022-10-20] MEDS ORDERED: LINEZOLID 600 MG TABLET PO ONE (17:02)
[2022-10-20] MEDS ORDERED: 0.9 % SODIUM CHLORIDE 1,000 ML IV ONE (17:27)
[2022-10-20] MEDS ORDERED: HYDROmorphone 1 MG/ML SYRINGE IM ONE (17:33)
[2022-10-20] MEDS ORDERED: LORazepam 2 MG/ML VIAL IV ONE (18:27)
[2022-10-20] MEDS ORDERED: VANCOMYCIN 1,000 MG in 0.9 % SODIUM CHLORIDE 250 ML IV ONE (18:45)
[2022-10-20 19:47] LABS: Albumin 3.7 gm/dL (3.2-5.2); Blood Urea Nitrogen 72 mg/dL (6-20); Calcium 9.1 mg/dL (8.6-10.4); Carbon Dioxide 24 mmol/L (22-30); Chloride 91 mmol/L (96-108); Glomerular Filtration Rate 8; Glucose 103 mg/dL (70-105); Phosphorous 6.1 mg/dL (2.5-4.5)
[2022-10-20] MEDS: VANCOMYCIN PER PHARMACY IV ONE ×2 (21:29)
[2022-10-21] MEDS: HYDROmorphone 1 MG/ML SYRINGE IV PRN ×6 (00:21→23:23)
--- NOTE | 2022-10-21 02:24 | Ultrasound Report ---
CLINICAL INFORMATION: History of diabetes and bilateral plantar ulcers. COMPARISON: None. FINDINGS: See attached sheet IMPRESSION: 1. Right leg: Common and external iliac arteries not visualized. Common femoral artery widely patent. Greater than 50% stenoses in the mid and distal SFA. Popliteal artery widely patent. Multiple moderate stenoses) greater than 50%) stenoses in the anterior medial, peroneal and posterior tibial arteries result in decreased systolic velocities. 2. Left leg: Common and external iliac arteries not visualized. Common femoral superficial femoral popliteal and trifurcation arteries are patent. Suggest CT abdominal aortogram with runoff. If the patient cannot tolerate iodinated contrast because of renal insufficiency or prior contrast reaction an MR abdominal area with runoff would be an adequate substitute Interpreted and Authenticated by: Joe Guevara 10/21/22
[2022-10-21] MEDS ORDERED: LINEZOLID 600 MG/300 ML BAG IV ONE (07:52)
--- NOTE | 2022-10-21 07:55 | Emergency Department Note ---
Course Course Course Narrative: Patient is a 52-year-old female with a history of ESRD and diabetes and otherwise complex medical history who presented to the emergency department at the request of Dr. Puentes due to concern for diabetic foot wound and osteomyelitis. At the time of signout we were awaiting a call from Dr. Hunt operating systems specialist. Vital Signs Vital signs: Vital Signs Temperature 97.2 F 10/20/22 12:56 Pulse Rate 82 10/20/22 12:56 Respiratory Rate 16 10/20/22 12:56 Blood Pressure 148/77 10/20/22 12:56 Pulse Oximetry (%) 100 10/20/22 12:56 Oxygen Delivery Method Room Air 10/20/22 12:56 Temperature 98.2 F 10/25/22 11:32 Pulse Rate 72 10/25/22 11:32 Respiratory Rate 16 10/25/22 11:32 Blood Pressure 132/66 10/25/22 11:32 Pulse Oximetry (%) 97 10/25/22 11:32 Oxygen Delivery Method Room Air 10/25/22 11:32 Oxygen Flow Rate (L/min) 0 10/23/22 19:55 MDM MDM Narrative Medical decision making narrative: Narrative: Patient is a 52-year-old female who presented due to concern for osteomyelitis. Patient has findings concerning for fracture of the calcaneus as well. I spoke to Dr. Hunt did recommend that patient have vascular studies. I also spoke with Dr. Curtis moreland who stated that ideally we would be able to get vascular studies as well, but if we are unable to transfer her that he would prefer that she be admitted here for debridement and washout, as well as IV antibiotics. Jenelle Jain spoke with physicians from [facility] due to her knowing this patient's case very well and while I was in another room. Unfortunately they do not have vascular surgery. We spoke with Dr. Jacob again, and he has agreed with admission at this time. Lab Data 10/20/22 14:23 10/20/22 14:23 Labs: Lab Results 10/20/22 10/20/22 10/20/22 Range/Units 07:28 14:23 14:23 WBC 7.1 TNP (4.5-11.0) K/mcL RBC 2.55 L TNP (3.59-5.38) M/mcL Hgb 7.6 L TNP (11.2-15.7) g/dL Hct 24.5 L TNP (34.1-44.9) % POC Hct (36-48) MCV 96.1 TNP (80.0-100.0) fL MCH 29.8 TNP (26.0-34.0) pg MCHC 31.0 TNP (31.0-36.0) g/dL RDW 17.2 H TNP (11.5-14.5) % Plt Count 429 TNP (140-440) K/mcL MPV 8.8 TNP (8.8-12.5) fL Immature Gran % (Auto) 0.4 TNP (0.0-0.5) % Neut % (Auto) 58.5 TNP (38.0-78.0) % Lymph % (Auto) 25.7 TNP (15.5-49.0) % [place] % (Auto) 10.0 TNP (1.0-12.0) % Eos % (Auto) 5.0 TNP (0.0-7.0) % Baso % (Auto) 0.4 TNP (0.0-2.0) % Lymph # (Auto) 1.82 TNP (1.50-4.80) K/mcL [place] # (Auto) 0.71 TNP (0.10-0.90) K/mcL Eos # (Auto) 0.35 TNP (0.00-0.70) K/mcL Baso # (Auto) 0.03 TNP (0.00-0.30) K/mcL Immature Gran # 0.03 TNP (0.00-0.05) K/mcl Absolute Neutrophils 4.13 TNP (1.80-8.00) K/mcL Differential Comment TNP ESR > 130 H TNP (0-30) mm/hr POC Sodium (133-145) Sodium (133-145) mmol/L POC Potassium (3.3-5.1) Potassium (3.3-5.1) mmol/L POC Chloride (96-108) Chloride (96-108) mmol/L Carbon Dioxide (22-30) mmol/L POC Total CO2 (22-30) Anion Gap (8.0-16.0) POC BUN (6-20) BUN (6-20) mg/dL Creatinine (0.6-1.1) mg/dL POC Creatinine (0.6-1.2) GFR Calculation Glucose (70-105) mg/dL POC Glucose (70-105) Calcium (8.6-10.4) mg/dL POC WB Ioniz Calcium (1.16-1.32) Phosphorus (2.5-4.5) mg/dL C-Reactive Protein 3.90 H (0.03-0.80) mg/dL Albumin (3.2-5.2) gm/dL Procalcitonin (<0.10) ng/mL 10/20/22 10/20/22 10/21/22 Range/Units 14: 14:28 07:20 WBC (4.5-11.0) K/mcL RBC (3.59-5.38) M/mcL Hgb (11.2-15.7) g/dL Hct (34.1-44.9) % POC Hct 27.0 L (36-48) MCV (80.0-100.0) fL MCH (26.0-34.0) pg MCHC (31.0-36.0) g/dL RDW (11.5-14.5) % Plt Count (140-440) K/mcL MPV (8.8-12.5) fL Immature Gran % (Auto) (0.0-0.5) % Neut % (Auto) (38.0-78.0) % Lymph % (Auto) (15.5-49.0) % [place] % (Auto) (1.0-12.0) % Eos % (Auto) (0.0-7.0) % Baso % (Auto) (0.0-2.0) % Lymph # (Auto) (1.50-4.80) K/mcL [place] # (Auto) (0.10-0.90) K/mcL Eos # (Auto) (0.00-0.70) K/mcL Baso # (Auto) (0.00-0.30) K/mcL Immature Gran # (0.00-0.05) K/mcl Absolute Neutrophils (1.80-8.00) K/mcL Differential Comment ESR (0-30) mm/hr POC Sodium 131 L (133-145) Sodium 131 L 133 (133-145) mmol/L POC Potassium 5.2 H (3.3-5.1) Potassium 5.5 H 5.0 (3.3-5.1) mmol/L POC Chloride 96 (96-108) Chloride 91 L 96 (96-108) mmol/L Carbon Dioxide 24 24 (22-30) mmol/L POC Total CO2 28.0 (22-30) Anion Gap 16.0 13.0 (8.0-16.0) POC BUN 82 H (6-20) BUN 72 H 78 H (6-20) mg/dL Creatinine 5.5 H* 6.3 H* (0.6-1.1) mg/dL POC Creatinine 7.4 H* (0.6-1.2) GFR Calculation 8 7 Glucose 103 97 (70-105) mg/dL POC Glucose 115 H (70-105) Calcium 9.1 8.9 (8.6-10.4) mg/dL POC WB Ioniz Calcium 1.13 L (1.16-1.32) Phosphorus 6.1 H* (2.5-4.5) mg/dL C-Reactive Protein (0.03-0.80) mg/dL Albumin 3.7 (3.2-5.2) gm/dL Procalcitonin (<0.10) ng/mL 10/21/22 Range/Units 07:20 WBC (4.5-11.0) K/mcL RBC (3.59-5.38) M/mcL Hgb (11.2-15.7) g/dL Hct (34.1-44.9) % POC Hct (36-48) MCV (80.0-100.0) fL MCH (26.0-34.0) pg MCHC (31.0-36.0) g/dL RDW (11.5-14.5) % Plt Count (140-440) K/mcL MPV (8.8-12.5) fL Immature Gran % (Auto) (0.0-0.5) % Neut % (Auto) (38.0-78.0) % Lymph % (Auto) (15.5-49.0) % [place] % (Auto) (1.0-12.0) % Eos % (Auto) (0.0-7.0) % Baso % (Auto) (0.0-2.0) % Lymph # (Auto) (1.50-4.80) K/mcL [place] # (Auto) (0.10-0.90) K/mcL Eos # (Auto) (0.00-0.70) K/mcL Baso # (Auto) (0.00-0.30) K/mcL Immature Gran # (0.00-0.05) K/mcl Absolute Neutrophils (1.80-8.00) K/mcL Differential Comment ESR (0-30) mm/hr POC Sodium (133-145) Sodium (133-145) mmol/L POC Potassium (3.3-5.1) Potassium (3.3-5.1) mmol/L POC Chloride (96-108) Chloride (96-108) mmol/L Carbon Dioxide (22-30) mmol/L POC Total CO2 (22-30) Anion Gap (8.0-16.0) POC BUN (6-20) BUN (6-20) mg/dL Creatinine (0.6-1.1) mg/dL POC Creatinine (0.6-1.2) GFR Calculation Glucose (70-105) mg/dL POC Glucose (70-105) Calcium (8.6-10.4) mg/dL POC WB Ioniz Calcium (1.16-1.32) Phosphorus (2.5-4.5) mg/dL C-Reactive Protein (0.03-0.80) mg/dL Albumin (3.2-5.2) gm/dL Procalcitonin 0.34 H (<0.10) ng/mL ED POC Tests ED POC Tests: SAM - SARS Antigen Negative Discharge Plan Patient/Caregiver Discharge Instructions Pt seen by PURSE MAKER/PA only: No Clinical Impression: Calcaneus fracture, left, Osteomyelitis, ESRD (end stage renal disease) Activity: increase activity as tolerated Patient Disposition: Xfer As Inpt ([facility]) Condition: Fair Discharge Date/Time: 10/21/22 11:40
[2022-10-21 08:47] LABS: Basophils # (Auto) 0.03 K/mcL (0.00-0.30); Basophils % (Auto) 0.4 % (0.0-2.0); Eosinophils # (Auto) 0.35 K/mcL (0.00-0.70); Hematocrit 24.5 % (34.1-44.9); Hemoglobin 7.6 g/dL (11.2-15.7); Lymphocytes # (Auto) 1.82 K/mcL (1.50-4.80); Lymphocytes % (Auto) 25.7 % (15.5-49.0); Mean Cell Volume 96.1 fL (80.0-100.0); Mean Platelet Volume 8.8 fL (8.8-12.5); Monocytes # (Auto) 0.71 K/mcL (0.10-0.90); Neutrophils % (Auto) 58.5 % (38.0-78.0); Platelet Count 429 K/mcL (140-440); RBC 2.55 M/mcL (3.59-5.38); Red Cell Distribution Width 17.2 % (11.5-14.5); WBC 7.1 K/mcL (4.5-11.0)
[2022-10-21 08:58] LABS: Blood Urea Nitrogen 78 mg/dL (6-20); Calcium 8.9 mg/dL (8.6-10.4); Carbon Dioxide 24 mmol/L (22-30); Chloride 96 mmol/L (96-108); Glomerular Filtration Rate 7; Glucose 97 mg/dL (70-105)
[2022-10-21 09:05] LABS: Erythrocyte Sedimentation Rate > 130 mm/hr (0-30)
--- NOTE | 2022-10-21 09:10 | Nephrology Consult Note ---
HPI Date of Consult Consult Date: 10/21/22 Requesting physician: Leo Truong Primary Care Provider: Bridger Benites MD Consult Narrative Chief complaint: Left foot ulcer Reason for consult: End stage renal disease on home hemodialysis History of present illness: Paige Lemos is a 52-year-old female with end stage renal disease on home hemodialysis, chronic anemia due to ESRD, hypertension, diabetes mellitus type 1, peripheral neuropathy, macular degeneration with blindness, pulmonary embolism on Apixaban, sent to ED from the wound clinic on 10/20/22 for non healing left calcaneus diabetic foot ulcer. Nephrology consultation was requested for end stage renal disease. cc:: CC: Constitutional Constitutional: Present fatigue and weakness EENT Nose, mouth and throat: Absent nasal congestion or sore throat Cardiovascular Cardiovascular: Absent chest pain or palpatations Respiratory Respiratory: Absent dyspnea or wheezing Gastrointestinal Gastrointestinal: Absent abdominal pain, nausea or vomiting Musculoskeletal Musculoskeletal: Present other (left foot ulcer and pain) Integumentary Integumentary: Present wounds (Left calcaneal non healing diabetic foot ulcer) Neurological Neurological: Absent confusion Psychiatric Psychiatric: Absent anxiety or panic attacks Hematologic/Lymphatic Hematologic/Lymphatic: Absent easy bleeding or easy bruising Allergic/Immunologic Allergic/Immunologic: Absent tongue swelling or uticaria PFSH PFSH All Active Problems (Updated 10/20/22 @ 23:20 by Jenelle Jain PA-C) Calcaneus fracture, left (Acute) Osteomyelitis (Acute) ESRD (end stage renal disease) (Acute) Type 2 diabetes mellitus treated with insulin (Acute) Medicare annual wellness visit, initial (Acute) Apnea (Chronic) Blindness of one eye (Chronic) Cataract (Chronic) Chronic pain (Chronic) Diabetes mellitus with renal manifestation (Chronic) Hypothyroidism (Chronic) History of kidney stones (Chronic) [facility]CI current use of insulin (Chronic) Lumbar disc disease (Chronic) Microhematuria (Chronic) Nephrolithiasis (Chronic 12/09/12) Overweight (Chronic 12/09/12) Peripheral neuropathy (Chronic 12/09/12) Polyneuropathy in diabetes (Chronic) Proteinuria (Chronic) Diabetic retinopathy associated with diabetes mellitus due to underlying condition (Chronic) SOB (shortness of breath) (Chronic) MRSA (methicillin resistant Staphylococcus aureus) (Chronic) Vitamin D deficiency (Chronic 01/18/13) Hypertensive renal disease (Chronic) Secondary hyperparathyroidism of renal origin (Chronic) Low back pain (Chronic) Hypertension, essential, benign (Chronic) Right bundle branch block (RBBB) determined by electrocardiography (Chronic) Gastroparesis (Chronic) Chronic narcotic use (Chronic) At risk for allergic reaction to medication (Chronic) ESRD on hemodialysis (Chronic) Anemia due to end stage renal disease (Chronic ~12/09/12) Cervical mass (Chronic) Celiac artery stenosis (Chronic) Abdominal pain (Chronic) UTI (urinary tract infection) (Chronic) Hyperlipidemia (Chronic) RUQ abdominal pain (Chronic) Arterial obstructive disease (Chronic) Macular degeneration (Chronic) History of stroke (Chronic) Anxiety disorder (Chronic) Depression (Chronic) Sleep apnea (Chronic) Muscle pain (Chronic) Muscle weakness (Chronic) Kidney cyst, acquired (Chronic) Hematuria (Chronic) SMAS (superior mesenteric artery syndrome) (Chronic) Renal disease (Chronic) Hypoglycemia unawareness associated with type 1 diabetes mellitus (Acute) Diabetic infection of right foot (Acute) V-tach (Acute) Type 1 diabetes mellitus with end-stage renal disease (Acute) Median arcuate ligament syndrome (Acute) Internal jugular (IJ) vein thromboembolism, acute (Acute) Foot ulcer (Acute) ESRD (end stage renal disease) on dialysis (Chronic) Complication of arteriovenous dialysis fistula (Acute) Dialysis complication (Acute) Hypotension of hemodialysis (Acute) Diabetic foot ulcer with osteomyelitis (Chronic) Mesenteric artery syndrome (superior) (Acute) Pulmonary embolus (Acute) Atypical chest pain (Acute) Acute flank pain (Acute) Acute abdominal pain (Acute) Episodic ataxia with slurred speech (Acute) Medical History Abdominal pain Abdominal pain Abnormal weight gain Acidosis Anemia due to end stage renal disease (~12/09/12) As above Anxiety disorder Apnea Arterial obstructive disease At risk for allergic reaction to medication dystonic reactions to Reglan (metoclopramide), Compazine (prochlorperazine) and Inapsine (droperidol) Bleeding pseudoaneurysm of left brachiocephalic AV fistula Blindness of one eye left Calf pain Cataract Celiac artery stenosis Cervical mass Chest pain Chest pain Chronic narcotic use for neuropathy; Dr. Shyam Harper, [employer] [facility] Chronic pain Complications, dialysis, catheter, mechanical Constipation Cystitis Depression Diabetes mellitus with renal manifestation Diabetic retinopathy associated with diabetes mellitus due to underlying condition DM (diabetes mellitus), type 1 with neurological complications Dyspnea Edema of lower extremity pitted, severity estimated LT: 1+ and RT: 2+ ESRD on hemodialysis Flank pain Fluid overload Foot ulcer Fracture, foot Gastroparesis History of kidney stones History of stroke X 2 Hyperkalemia Hyperlipidemia Hypertension, essential, benign Hypertensive renal disease BP near goal, good BP readings at home ct current meds follow low sodium diet will follow and optimize if elevated next visit Hypothyroidism 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 current 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 of insulin Low back pain hx of laser disk Lumbar disc disease Macular degeneration Medicare annual wellness visit, initial Microhematuria MRSA (methicillin resistant Staphylococcus aureus) abscess 2006 Muscle pain Muscle weakness Nephrolithiasis (12/09/12) Nephropathy Orthopnea Overweight (12/09/12) Palpitation Pelvic pain Peripheral neuropathy (12/09/12) Pneumonia Polyneuropathy in diabetes Proteinuria Pulmonary embolus Pyelonephritis Renal disease END STAGE Retinal detachment Right bundle branch block (RBBB) determined by electrocardiography RUQ abdominal pain Secondary hyperparathyroidism of renal origin PTH improved from 133 to 65 phos is normal calcium is at upper limit of normal ct renvela and cholecalciferol will monitor and optimize meds if needed Sepsis Urosepsis was noted in chart note. Shoulder pain Sleep apnea SOB (shortness of breath) Staphylococcus aureus bacteremia UTI (lower urinary tract infection) UTI (urinary tract infection) UTI (urinary tract infection) UTI (urinary tract infection) Vision changes Vitamin D deficiency (01/18/13) Vitreous hemorrhage Vomiting Weakness Weakness of right lower extremity Surgical History History of appendectomy History of arthroscopy of right shoulder History of section History of cholecystectomy History of foot surgery History of hysterectomy with oophorectomy History of shoulder surgery Right shoulder. History of surgery Celiac Plexus Block Lt. L1 w/sed 10/27/2018 S/P arteriovenous (AV) fistula creation (02/10/18) Family History Father Cerebral infarction Essential hypertension Mother Type 1 diabetes mellitus Social History household members: significant other lives independently: Yes marital status: other details: engaged occupational status: disabled physical activity: none smoking status: Never smoker alcohol intake frequency: former alcohol drinker substance use type: does not use seatbelt use: always MEDS/ALLERGIES Home Medications and Allergies Home Medications Medication Instructions Recorded Confirmed Type docusate sodium 100 mg capsule 100 mg PO DAILYP PRN Constipation 12/05/19 09/02/22 History (Colace) bisacodyl 5 mg tablet,delayed 10 mg PO QDAY 03/20/20 09/02/22 History release (Dulcolax (bisacodyl)) clobetasol 0.05 % scalp solution 1 applic topical QDAY 03/20/20 09/02/22 History diphenhydramine HCl 25 mg capsule 25 - 75 mg PO Q6H PRN Allergy 03/20/20 09/02/22 History (Benadryl) Symptoms methylphenidate HCl 5 mg tablet 5 mg PO HS 06/26/21 09/02/22 History omeprazole 20 mg capsule,delayed 20 mg PO QHS 06/26/21 09/02/22 History release naloxone 4 mg/actuation nasal 4 mg intranasal Q2M PRN opioid 11/18/21 09/02/22 Rx spray (Narcan) overdose #1 ea doxycycline hyclate 100 mg tablet 100 mg PO QDAY 02/10/22 09/02/22 History apixaban 2.5 mg tablet 2.5 mg PO BID Left IJ thrombosis 03/31/22 09/02/22 Rx (not completly occluding vessel #60 tabs furosemide 40 mg tablet 40 mg PO BID #60 tabs 04/08/22 09/02/22 Rx insulin lispro 100 unit/mL 10 unit (0.1 mL) subcut TID #15 mL 05/22/22 09/02/22 Rx subcutaneous pen (Humalog KwikPen (U-100) Insulin) ondansetron 4 mg disintegrating 4 mg PO Q4H PRN for 05/22/22 09/02/22 Rx tablet nausea/vomiting #30 tabs duloxetine 60 mg capsule,delayed 120 mg PO QDAY #180 caps 06/10/22 09/02/22 Rx release insulin glargine 100 unit/mL (3 15 unit (0.15 mL) subcut BID #15 mL 07/11/22 09/02/22 Rx mL) subcutaneous pen (Lantus Solostar U-100 Insulin) levothyroxine 75 mcg tablet 75 mcg PO QDAY #90 tabs 08/19/22 09/02/22 Rx hydromorphone 4 mg tablet 4 - 8 mg PO Q4H PRN Pain #180 tabs 09/02/22 09/02/22 Rx aripiprazole 15 mg tablet 15 mg PO QHS #30 tabs 09/15/22 Rx captopril 25 mg tablet 25 mg PO Q12H HTN #60 tabs 10/14/22 Rx sevelamer carbonate 800 mg tablet 800 mg PO TIDCC high phosphorous 10/14/22 Rx #180 tabs promethazine 50 mg tablet 50 mg PO Q6H PRN nausea and 10/17/22 Rx vomiting #120 tabs Allergies Allergy/AdvReac Type Severity Reaction Status Date / Time aspirin Allergy Severe Anaphylaxis Verified 10/20/22 12:59 gabapentin Allergy Severe Anaphylaxis Verified 10/20/22 12:59 honey Allergy Severe Anaphylaxis Verified 10/20/22 12:59 metoclopramide Allergy Severe Anaphylaxis Verified 10/20/22 12:59 prochlorperazine Allergy Severe Anaphylaxis Verified 10/20/22 12:59 sumatriptan Allergy Severe Anaphylaxis Verified 10/20/22 12:59 tiagabine [From Gabitril] Allergy Severe Anaphylaxis Verified 10/20/22 12:59 adhesive Allergy Mild Blister Verified 10/20/22 12:59 ceftriaxone [From Rocephin] Allergy Mild Hives Verified 10/20/22 12:59 Penicillins Allergy Mild Hives Verified 10/20/22 12:59 topiramate [From Topamax] Allergy Mild Rash Verified 10/20/22 12:59 droperidol [From INAPSINE] AdvReac Severe Seizure Verified 10/20/22 12:59 ketamine AdvReac Intermediate Anxiety Verified 10/20/22 12:59 vancomycin AdvReac Intermediate Itching Verified 10/20/22 12:59 hydroxyzine AdvReac Mild Confusion Verified 10/20/22 12:59 morphine AdvReac Mild Blister Verified 10/20/22 12:59 Physical Examination Vital Signs Vital signs: Temp Pulse Resp BP Pulse Ox O2 Del Method 97.2 F 72 16 107/65 96 Room Air 10/20/22 12:56 10/21/22 08:01 10/20/22 12:56 10/21/22 08:01 10/21/22 08:01 10/20/22 12:56 General Appearance General appearance: chronically ill EENT EENT: mucous membranes moist Respiratory Respiratory: clear Cardiovascular Cardiology: edema, regular rate and irregular rhythm Gastrointestinal Gastrointestinal: no tenderness Integumentary Integumentary: ulcer (Left foot ulcer) Neurologic Neurologic: no focal deficit and alert and oriented x3 Musculoskeletal Musculoskeletal: deformities (Left calcaneal foot ulcer) Psychiatric Psychiatric: mood/affect appropriate and cooperative Results Lab Results 10/20/22 14:23 10/21/22 07:20 Lab results: Most recent lab results Calcium 8.9 mg/dL (8.6-10.4) 10/21/22 07:20 Phosphorus 6.1 mg/dL (2.5-4.5) H* 10/20/22 14:23 A/P Assessment and plan (1) ESRD on hemodialysis: Assessment and plan: Paige Lemos is a 52-year-old female with end stage renal disease on home hemodialysis, chronic anemia due to ESRD, hypertension, diabetes mellitus type 1, peripheral neuropathy, macular degeneration with blindness, pulmonary embolism on Apixaban, sent to ED from the wound clinic on 10/20/22 for non healing left calcaneus diabetic foot ulcer. Nephrology consultation was requested for end stage renal disease. End stage renal disease on home hemodialysis. Chronic anemia due to ESRD. Hyperkalemia. Hyponatremia. Hyperphosphatemia. Left calcaneal non healing diabetic foot ulcer with left posterior inferior calcaneus fracture, suspected peripheral vascular disease. Recommendations/Plan: Waiting for transfer to higher level of care. In center hemodialysis on 10/21/22: F250, 4 hours, QB 400, QD 800, Dialysate (2K, CO2 35, Na 138), UF: 2-3 kg as tolerated, No heparin, saline flushes. Status: Chronic Time Spent With Patient Time: Total time spent is greater than 50% in coordination of care (as documented) at patient's floor/unit and/or counseling patient:
[2022-10-21] MEDS ORDERED: DEXTROSE 50% 50 ML VIAL IV PRN (13:36)
[2022-10-21] MEDS ORDERED: DEXTROSE 31 GM ORAL.SUSP PO PRN (13:36)
[2022-10-21] MEDS ORDERED: VANCOMYCIN PER PHARMACY IV SCH (13:42)
[2022-10-21] MEDS ORDERED: PROMETHAZINE 25 MG TABLET PO PRN (13:52)
--- NOTE | 2022-10-21 13:55 | Internal Med History&Physical ---
HPI History of Present Illness Patient information: Note initiated : 10/21/22 at 1:53 pm Service Date, if different from initiated Date: [] Patient: Paige Lemos 52 y/o F admitted on 10/21/22 for wound to foot. Chief Complaint: [] Chief complaint: non healing diabetic left foot wound History of present illness: Ms. 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 She has a history of multiple toe amputations from right foot with poorly healing wound for which she has received extensive recent hyperbaric oxygen treatment. She has now in the last several weeks developed a left heel wound that has opened and now has exposed bone. Her wound care physician referred her to the ER for further evaluation and management. Workup in the ER is notable for obvious foot wound with bone, CT of the foot notes a calcaneal fracture communicating with soft tissue infection. Arterial Duplex studies of the legs note patent left leg arteries but the right notes greater than 50% stenosis in mid and distal SFA as well as multiple greater than 50% stenosis in the anterior, peroneal and posterior tibial arteries. The Radiologist suggests CT abominal aortogram with run-off or MR equivalent. ER made made many attempts to facilitate transfer to a tertiary center with the ability to perform HD and also with Vascular Surgery and Podiatry available but have thus far been unsuccessful in securing transfer to a facility with these c apabilities. Pt understands she is being admitted to a faclity without Podiatry or Vascular Surgery. Blood cultures were obtained, Vancomycin and Zosyn were given. Admission was requested to continue the workup. Constitutional Constitutional: Present as per HPI EENT Eyes: Present as per HPI Cardiovascular Cardiovascular: Present as per HPI Respiratory Respiratory: Present as per HPI Gastrointestinal Gastrointestinal: Present as per HPI Musculoskeletal Additional comments: non healing left heel wound with exposed bone Neurological Neurological: Present as per HPI PFSH PFSH All Active Problems (Updated 10/20/22 @ 23:20 by Jenelle Jain PA-C) Calcaneus fracture, left (Acute) Osteomyelitis (Acute) ESRD (end stage renal disease) (Acute) Type 2 diabetes mellitus treated with insulin (Acute) Medicare annual wellness visit, initial (Acute) Apnea (Chronic) Blindness of one eye (Chronic) Cataract (Chronic) Chronic pain (Chronic) Diabetes mellitus with renal manifestation (Chronic) Hypothyroidism (Chronic) History of kidney stones (Chronic) 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) Lumbar disc disease (Chronic) Microhematuria (Chronic) Nephrolithiasis (Chronic 12/09/12) Overweight (Chronic 12/09/12) Peripheral neuropathy (Chronic 12/09/12) Polyneuropathy in diabetes (Chronic) Proteinuria (Chronic) Diabetic retinopathy associated with diabetes mellitus due to underlying condition (Chronic) SOB (shortness of breath) (Chronic) MRSA (methicillin resistant Staphylococcus aureus) (Chronic) Vitamin D deficiency (Chronic 01/18/13) Hypertensive renal disease (Chronic) Secondary hyperparathyroidism of renal origin (Chronic) Low back pain (Chronic) Hypertension, essential, benign (Chronic) Right bundle branch block (RBBB) determined by electrocardiography (Chronic) Gastroparesis (Chronic) Chronic narcotic use (Chronic) At risk for allergic reaction to medication (Chronic) ESRD on hemodialysis (Chronic) Anemia due to end stage renal disease (Chronic ~12/09/12) Cervical mass (Chronic) Celiac artery stenosis (Chronic) Abdominal pain (Chronic) UTI (urinary tract infection) (Chronic) Hyperlipidemia (Chronic) RUQ abdominal pain (Chronic) Arterial obstructive disease (Chronic) Macular degeneration (Chronic) History of stroke (Chronic) Anxiety disorder (Chronic) Depression (Chronic) Sleep apnea (Chronic) Muscle pain (Chronic) Muscle weakness (Chronic) Kidney cyst, acquired (Chronic) Hematuria (Chronic) SMAS (superior mesenteric artery syndrome) (Chronic) Renal disease (Chronic) Hypoglycemia unawareness associated with type 1 diabetes mellitus (Acute) Diabetic infection of right foot (Acute) V-tach (Acute) Type 1 diabetes mellitus with end-stage renal disease (Acute) Median arcuate ligament syndrome (Acute) Internal jugular (IJ) vein thromboembolism, acute (Acute) Foot ulcer (Acute) ESRD (end stage renal disease) on dialysis (Chronic) Complication of arteriovenous dialysis fistula (Acute) Dialysis complication (Acute) Hypotension of hemodialysis (Acute) Diabetic foot ulcer with osteomyelitis (Chronic) Mesenteric artery syndrome (superior) (Acute) Pulmonary embolus (Acute) Atypical chest pain (Acute) Acute flank pain (Acute) Acute abdominal pain (Acute) Episodic ataxia with slurred speech (Acute) Medical History Abdominal pain Abdominal pain Abnormal weight gain Acidosis Anemia due to end stage renal disease (~12/09/12) As above Anxiety disorder Apnea Arterial obstructive disease At risk for allergic reaction to medication dystonic reactions to Reglan (metoclopramide), Compazine (prochlorperazine) and Inapsine (droperidol) Bleeding pseudoaneurysm of left brachiocephalic AV fistula Blindness of one eye left Calf pain Cataract Celiac artery stenosis Cervical mass Chest pain Chest pain Chronic narcotic use for neuropathy; Dr. Shyam Harper, [facility] Chronic pain Complications, dialysis, catheter, mechanical Constipation Cystitis Depression Diabetes mellitus with renal manifestation Diabetic retinopathy associated with diabetes mellitus due to underlying condition DM (diabetes mellitus), type 1 with neurological complications Dyspnea Edema of lower extremity pitted, severity estimated LT: 1+ and RT: 2+ ESRD on hemodialysis Flank pain Fluid overload Foot ulcer Fracture, foot Gastroparesis History of kidney stones History of stroke X 2 Hyperkalemia Hyperlipidemia Hypertension, essential, benign Hypertensive renal disease BP near goal, good BP readings at home ct current meds follow low sodium diet will follow and optimize if elevated next visit Hypothyroidism Infection of hemodialysis tunneled catheter longterm current use of insulin Low back pain hx of laser disk Lumbar disc disease Macular degeneration Medicare annual wellness visit, initial Microhematuria MRSA (methicillin resistant Staphylococcus aureus) abscess 2006 Muscle pain Muscle weakness Nephrolithiasis (12/09/12) Nephropathy Orthopnea Overweight (12/09/12) Palpitation Pelvic pain Peripheral neuropathy (12/09/12) Pneumonia Polyneuropathy in diabetes Proteinuria Pulmonary embolus Pyelonephritis Renal disease END STAGE Retinal detachment Right bundle branch block (RBBB) determined by electrocardiography RUQ abdominal pain Secondary hyperparathyroidism of renal origin PTH improved from 133 to 65 phos is normal calcium is at upper limit of normal ct renvela and cholecalciferol will monitor and optimize meds if needed Sepsis Urosepsis was noted in chart note. Shoulder pain Sleep apnea SOB (shortness of breath) Staphylococcus aureus bacteremia UTI (lower urinary tract infection) UTI (urinary tract infection) UTI (urinary tract infection) UTI (urinary tract infection) Vision changes Vitamin D deficiency (01/18/13) Vitreous hemorrhage Vomiting Weakness Weakness of right lower extremity Surgical History History of appendectomy History of arthroscopy of right shoulder History of section History of cholecystectomy History of foot surgery History of hysterectomy with oophorectomy History of shoulder surgery Right shoulder. History of surgery Celiac Plexus Block Lt. L1 w/sed 10/27/2018 S/P arteriovenous (AV) fistula creation (02/10/18) Family History Father Cerebral infarction Essential hypertension Mother Type 1 diabetes mellitus Social History household members: significant other lives independently: Yes marital status: other details: engaged occupational status: disabled physical activity: none smoking status: Never smoker alcohol intake frequency: former alcohol drinker substance use type: does not use seatbelt use: always MEDS/ALLERGIES Home Medications and Allergies Home Medications Medication Instructions Recorded Confirmed Type docusate sodium 100 mg capsule 100 mg PO DAILYP PRN Constipation 12/05/19 09/02/22 History (Colace) bisacodyl 5 mg tablet,delayed 10 mg PO QDAY 03/20/20 09/02/22 History release (Dulcolax (bisacodyl)) clobetasol 0.05 % scalp solution 1 applic topical QDAY 03/20/20 09/02/22 History diphenhydramine HCl 25 mg capsule 25 - 75 mg PO Q6H PRN Allergy 03/20/20 09/02/22 History (Benadryl) Symptoms methylphenidate HCl 5 mg tablet 5 mg PO HS 06/26/21 09/02/22 History omeprazole 20 mg capsule,delayed 20 mg PO QHS 06/26/21 09/02/22 History release naloxone 4 mg/actuation nasal 4 mg intranasal Q2M PRN opioid 11/18/21 09/02/22 Rx spray (Narcan) overdose #1 ea doxycycline hyclate 100 mg tablet 100 mg PO QDAY 02/10/22 09/02/22 History apixaban 2.5 mg tablet 2.5 mg PO BID Left IJ thrombosis 03/31/22 09/02/22 Rx (not completly occluding vessel #60 tabs furosemide 40 mg tablet 40 mg PO BID #60 tabs 04/08/22 09/02/22 Rx insulin lispro 100 unit/mL 10 unit (0.1 mL) subcut TID #15 mL 05/22/22 09/02/22 Rx subcutaneous pen (Humalog KwikPen (U-100) Insulin) ondansetron 4 mg disintegrating 4 mg PO Q4H PRN for 05/22/22 09/02/22 Rx tablet nausea/vomiting #30 tabs duloxetine 60 mg capsule,delayed 120 mg PO QDAY #180 caps 06/10/22 09/02/22 Rx release insulin glargine 100 unit/mL (3 15 unit (0.15 mL) subcut BID #15 mL 07/11/22 09/02/22 Rx mL) subcutaneous pen (Lantus Solostar U-100 Insulin) levothyroxine 75 mcg tablet 75 mcg PO QDAY #90 tabs 08/19/22 09/02/22 Rx hydromorphone 4 mg tablet 4 - 8 mg PO Q4H PRN Pain #180 tabs 09/02/22 09/02/22 Rx aripiprazole 15 mg tablet 15 mg PO QHS #30 tabs 09/15/22 Rx captopril 25 mg tablet 25 mg PO Q12H HTN #60 tabs 10/14/22 Rx sevelamer carbonate 800 mg tablet 800 mg PO TIDCC high phosphorous 10/14/22 Rx #180 tabs promethazine 50 mg tablet 50 mg PO Q6H PRN nausea and 10/17/22 Rx vomiting #120 tabs Allergies Allergy/AdvReac Type Severity Reaction Status Date / Time aspirin Allergy Severe Anaphylaxis Verified 10/20/22 12:59 gabapentin Allergy Severe Anaphylaxis Verified 10/20/22 12:59 honey Allergy Severe Anaphylaxis Verified 10/20/22 12:59 metoclopramide Allergy Severe Anaphylaxis Verified 10/20/22 12:59 prochlorperazine Allergy Severe Anaphylaxis Verified 10/20/22 12:59 sumatriptan Allergy Severe Anaphylaxis Verified 10/20/22 12:59 tiagabine [From Gabitril] Allergy Severe Anaphylaxis Verified 10/20/22 12:59 adhesive Allergy Mild Blister Verified 10/20/22 12:59 ceftriaxone [From Rocephin] Allergy Mild Hives Verified 10/20/22 12:59 Penicillins Allergy Mild Hives Verified 10/20/22 12:59 topiramate [From Topamax] Allergy Mild Rash Verified 10/20/22 12:59 droperidol [From INAPSINE] AdvReac Severe Seizure Verified 10/20/22 12:59 ketamine AdvReac Intermediate Anxiety Verified 10/20/22 12:59 vancomycin AdvReac Intermediate Itching Verified 10/20/22 12:59 hydroxyzine AdvReac Mild Confusion Verified 10/20/22 12:59 morphine AdvReac Mild Blister Verified 10/20/22 12:59 EXAM Constitutional Vitals: Temp Pulse Resp BP Pulse Ox O2 Del Method 98.1 F 80 16 103/66 100 Room Air 10/21/22 12:26 10/21/22 13:25 10/21/22 12:00 10/21/22 13:25 10/21/22 12:00 10/21/22 12:00 General appearance: no acute distress Head Head exam: Present atraumatic, normal inspection and normocephalic ENT ENT exam: Present mucous membranes moist Respiratory Respiratory exam: Present normal respiratory exam and CTAB Cardiovascular Cardiovascular exam: Present normal rate and rhythm GI/Abdominal GI/Abdominal exam: Present normal bowel sounds and soft; Absent distended Expanded Lower Extremity Exam Foot/Toe exam: Present calcaneal tenderness (left heel with 3-4 cm round lesion with exposed bone, cap refill slow but foot warm) Neurological Exam Neurological exam: Present CN II-XII intact and oriented X3 DATA Data Completed and Pending Labs: Labs from last 24 hours 10/21/22 10/21/22 10/20/22 07:20 07:20 14:28 WBC RBC Hgb Hct POC Hct 27.0 L MCV MCH MCHC RDW Plt Count MPV Immature Gran % (Auto) Neut % (Auto) Lymph % (Auto) [place] % (Auto) Eos % (Auto) Baso % (Auto) Lymph # (Auto) [place] # (Auto) Eos # (Auto) Baso # (Auto) Immature Gran # Absolute Neutrophils Differential Comment ESR POC Sodium 131 L Sodium 133 POC Potassium 5.2 H Potassium 5.0 POC Chloride 96 Chloride 96 Carbon Dioxide 24 POC Total CO2 28.0 Anion Gap 13.0 POC BUN 82 H BUN 78 H Creatinine 6.3 H* POC Creatinine 7.4 H* GFR Calculation 7 Glucose 97 POC Glucose 115 H Calcium 8.9 POC WB Ioniz Calcium 1.13 L Phosphorus C-Reactive Protein Albumin Procalcitonin 0.34 H 0210/20/22 10/20/22 14:23 14:23 14:23 WBC TNP RBC TNP Hgb TNP Hct TNP POC Hct MCV TNP MCH TNP MCHC TNP RDW TNP Plt Count TNP MPV TNP Immature Gran % (Auto) TNP Neut % (Auto) TNP Lymph % (Auto) TNP [place] % (Auto) TNP Eos % (Auto) TNP Baso % (Auto) TNP Lymph # (Auto) TNP [place] # (Auto) TNP Eos # (Auto) TNP Baso # (Auto) TNP Immature Gran # TNP Absolute Neutrophils TNP Differential Comment TNP ESR TNP POC Sodium Sodium 131 L POC Potassium Potassium 5.5 H POC Chloride Chloride 91 L Carbon Dioxide 24 POC Total CO2 Anion Gap 16.0 POC BUN BUN 72 H Creatinine 5.5 H* POC Creatinine GFR Calculation 8 Glucose 103 POC Glucose Calcium 9.1 POC WB Ioniz Calcium Phosphorus 6.1 H* C-Reactive Protein 3.90 H Albumin 3.7 Procalcitonin 10/20/22 07:28 WBC 7.1 RBC 2.55 L Hgb 7.6 L Hct 24.5 L POC Hct MCV 96.1 MCH 29.8 MCHC 31.0 RDW 17.2 H Plt Count 429 MPV 8.8 Immature Gran % (Auto) 0.4 Neut % (Auto) 58.5 Lymph % (Auto) 25.7 [place] % (Auto) 10.0 Eos % (Auto) 5.0 Baso % (Auto) 0.4 Lymph # (Auto) 1.82 [place] # (Auto) 0.71 Eos # (Auto) 0.35 Baso # (Auto) 0.03 Immature Gran # 0.03 Absolute Neutrophils 4.13 Differential Comment ESR > 130 H POC Sodium Sodium POC Potassium Potassium POC Chloride Chloride Carbon Dioxide POC Total CO2 Anion Gap POC BUN BUN Creatinine POC Creatinine GFR Calculation Glucose POC Glucose Calcium POC WB Ioniz Calcium Phosphorus C-Reactive Protein Albumin Procalcitonin Preliminary micro results at discharge 10/20/22 07:20 Blood Culture - Preliminary Blood 10/20/22 07:15 Blood Culture - Preliminary Blood A/P Assessment and plan (1) Osteomyelitis: Assessment and plan: - MRI Foot ordered - blood cultures pending - empiric coverage vanc/zosyn - MR Angio with runoff ordered - further plan pending MRI and MRA Status: Acute (2) Calcaneus fracture, left: Assessment and plan: - further plan pending MRI and MRA as above Status: Acute (3) ESRD (end stage renal disease): Assessment and plan: - nephrology following for HD Status: Acute (4) Type 2 diabetes mellitus treated with insulin: Assessment and plan: - continue Lantus and SSI Status: Acute (5) Chronic pain: Assessment and plan: - continue home meds Status: Chronic Time Spent With Patient Time: Total time spent is greater than 50% in coordination of care (as documented) at patient's floor/unit and/or counseling patient: Initial: Total time with patient: 55 - 74 minutes
[2022-10-21] MEDS: PIPERACILLIN SODIUM/TAZOBACTAM 2.25 GM in DEXTROSE 5% IN WATER 50 ML IV SCH (17:43)
[2022-10-21] MEDS: INSULIN LISPRO 1 UNIT/0.01 ML UNIT SQ SCH ×2 (17:54→20:54)
[2022-10-21] MEDS: SEVELAMER 800 MG TABLET PO SCH (17:55)
--- NOTE | 2022-10-21 17:58 | General Surgery Consult Note ---
HPI Date of Consult Consult Date: 10/21/22 Requesting physician: Enrico Martinez Primary Care Provider: Bridger Benites MD Consult Narrative Chief complaint: Chronic LEFT posterior heel DFU Stage 4, RIGHT lateral plantar DFU/ callus Reason for consult: Wound care and wound management. History of present illness: Established patient at wound care center, with multiple Long standing comorbidities. cc:: I saw this patient in wound care clinic yesterday and in ER last nite and this morning. Had extensive discussions with ER physician Dr. Leo Gould and Hospitalist Physician Dr Jacob. I saw her along with her friend in room 132 after she completed her hemodialysis today. I have reviewed all lab works thus far and input from treating physicians. CC: Antolin Jacob MD Musculoskeletal Musculoskeletal: Present other Additional comments: Acute pain, tenderness and worsening of LEFT heel wound. This was a significant interval change form her last encounter. Acute deterioration of LEFT heel wound with inflammation and infection exacerbation, whilst awaiting a scheduled debridement for 10/22/2022. Integumentary Integumentary: Present wounds (Cellulitis and trauma of left foot heel (weight bearing) neuropathic foot ulcer. ) PFSH PFSH All Active Problems Calcaneus fracture, left (Acute) Osteomyelitis (Acute) ESRD (end stage renal disease) (Acute) Type 2 diabetes mellitus treated with insulin (Acute) Medicare annual wellness visit, initial (Acute) Apnea (Chronic) Blindness of one eye (Chronic) Cataract (Chronic) Chronic pain (Chronic) Diabetes mellitus with renal manifestation (Chronic) Hypothyroidism (Chronic) History of kidney stones (Chronic) group home current use of insulin (Chronic) Lumbar disc disease (Chronic) Microhematuria (Chronic) Nephrolithiasis (Chronic 12/09/12) Overweight (Chronic 12/09/12) Peripheral neuropathy (Chronic 12/09/12) Polyneuropathy in diabetes (Chronic) Proteinuria (Chronic) Diabetic retinopathy associated with diabetes mellitus due to underlying condition (Chronic) SOB (shortness of breath) (Chronic) MRSA (methicillin resistant Staphylococcus aureus) (Chronic) Vitamin D deficiency (Chronic 01/18/13) Hypertensive renal disease (Chronic) Secondary hyperparathyroidism of renal origin (Chronic) Low back pain (Chronic) Hypertension, essential, benign (Chronic) Right bundle branch block (RBBB) determined by electrocardiography (Chronic) Gastroparesis (Chronic) Chronic narcotic use (Chronic) At risk for allergic reaction to medication (Chronic) ESRD on hemodialysis (Chronic) Anemia due to end stage renal disease (Chronic ~12/09/12) Cervical mass (Chronic) Celiac artery stenosis (Chronic) Abdominal pain (Chronic) UTI (urinary tract infection) (Chronic) Hyperlipidemia (Chronic) RUQ abdominal pain (Chronic) Arterial obstructive disease (Chronic) Macular degeneration (Chronic) History of stroke (Chronic) Anxiety disorder (Chronic) Depression (Chronic) Sleep apnea (Chronic) Muscle pain (Chronic) Muscle weakness (Chronic) Kidney cyst, acquired (Chronic) Hematuria (Chronic) SMAS (superior mesenteric artery syndrome) (Chronic) Renal disease (Chronic) Hypoglycemia unawareness associated with type 1 diabetes mellitus (Acute) Diabetic infection of right foot (Acute) V-tach (Acute) Type 1 diabetes mellitus with end-stage renal disease (Acute) Median arcuate ligament syndrome (Acute) Internal jugular (IJ) vein thromboembolism, acute (Acute) Foot ulcer (Acute) ESRD (end stage renal disease) on dialysis (Chronic) Complication of arteriovenous dialysis fistula (Acute) Dialysis complication (Acute) Hypotension of hemodialysis (Acute) Diabetic foot ulcer with osteomyelitis (Chronic) Mesenteric artery syndrome (superior) (Acute) Pulmonary embolus (Acute) Atypical chest pain (Acute) Acute flank pain (Acute) Acute abdominal pain (Acute) Episodic ataxia with slurred speech (Acute) Medical History Abdominal pain Abdominal pain Abnormal weight gain Acidosis Anemia due to end stage renal disease (~12/09/12) As above Anxiety disorder Apnea Arterial obstructive disease At risk for allergic reaction to medication dystonic reactions to Reglan (metoclopramide), Compazine (prochlorperazine) and Inapsine (droperidol) Bleeding pseudoaneurysm of left brachiocephalic AV fistula Blindness of one eye left Calf pain Cataract Celiac artery stenosis Cervical mass Chest pain Chest pain Chronic narcotic use for neuropathy; Dr. Shyam Harper, [place] Pain Chronic pain Complications, dialysis, catheter, mechanical Constipation Cystitis Depression Diabetes mellitus with renal manifestation Diabetic retinopathy associated with diabetes mellitus due to underlying condition DM (diabetes mellitus), type 1 with neurological complications Dyspnea Edema of lower extremity pitted, severity estimated LT: 1+ and RT: 2+ ESRD on hemodialysis Flank pain Fluid overload Foot ulcer Fracture, foot Gastroparesis History of kidney stones History of stroke X 2 Hyperkalemia Hyperlipidemia Hypertension, essential, benign Hypertensive renal disease BP near goal, good BP readings at home ct current meds follow low sodium diet will follow and optimize if elevated next visit Hypothyroidism Infection of hemodialysis tunneled catheter group home current use of insulin Low back pain hx of laser disk Lumbar disc disease Macular degeneration Medicare annual wellness visit, initial Microhematuria MRSA (methicillin resistant Staphylococcus aureus) abscess 2007 Muscle pain Muscle weakness Nephrolithiasis (12/09/12) Nephropathy Orthopnea Overweight (12/09/12) Palpitation Pelvic pain Peripheral neuropathy (12/09/12) Pneumonia Polyneuropathy in diabetes Proteinuria Pulmonary embolus Pyelonephritis Renal disease END STAGE Retinal detachment Right bundle branch block (RBBB) determined by electrocardiography RUQ abdominal pain Secondary hyperparathyroidism of renal origin PTH improved from 133 to 65 phos is normal calcium is at upper limit of normal ct renvela and cholecalciferol will monitor and optimize meds if needed Sepsis Urosepsis was noted in chart note. Shoulder pain Sleep apnea SOB (shortness of breath) Staphylococcus aureus bacteremia UTI (lower urinary tract infection) UTI (urinary tract infection) UTI (urinary tract infection) UTI (urinary tract infection) Vision changes Vitamin D deficiency (01/18/13) Vitreous hemorrhage Vomiting Weakness Weakness of right lower extremity Surgical History History of appendectomy History of arthroscopy of right shoulder History of section History of cholecystectomy History of foot surgery History of hysterectomy with oophorectomy History of shoulder surgery Right shoulder. History of surgery Celiac Plexus Block Lt. L1 w/sed 10/27/2018 S/P arteriovenous (AV) fistula creation (02/10/18) Family History Father Cerebral infarction Essential hypertension Mother Type 1 diabetes mellitus Social History household members: significant other lives independently: Yes marital status: other details: engaged occupational status: disabled physical activity: none smoking status: Never smoker alcohol intake frequency: former alcohol drinker substance use type: does not use seatbelt use: always MEDS/ALLERGIES Home Medications and Allergies Home Medications Medication Instructions Recorded Confirmed Type docusate sodium 100 mg capsule 100 mg PO DAILYP PRN Constipation 12/05/19 10/21/22 History (Colace) clobetasol 0.05 % scalp solution 1 applic topical QDAY PRN Itching 03/20/20 10/21/22 History diphenhydramine HCl 25 mg capsule 25 - 75 mg PO Q6H PRN Allergy 03/20/20 10/21/22 History (Benadryl) Symptoms methylphenidate HCl 5 mg tablet 5 mg PO HS 06/26/21 10/21/22 History omeprazole 20 mg capsule,delayed 20 mg PO QHS 06/26/21 10/21/22 History release doxycycline hyclate 100 mg tablet 100 mg PO QDAY 02/10/22 10/21/22 History apixaban 2.5 mg tablet 2.5 mg PO BID Left IJ thrombosis 03/31/22 10/21/22 Rx (not completly occluding vessel #60 tabs insulin lispro 100 unit/mL 10 unit (0.1 mL) subcut TID #15 mL 05/22/22 10/21/22 Rx subcutaneous pen (Humalog KwikPen (U-100) Insulin) ondansetron 4 mg disintegrating 4 mg PO Q4H PRN for 05/22/22 10/21/22 Rx tablet nausea/vomiting #30 tabs duloxetine 60 mg capsule,delayed 120 mg PO QDAY #180 caps 06/10/22 10/21/22 Rx release levothyroxine 75 mcg tablet 75 mcg PO QDAY #90 tabs 08/19/22 10/21/22 Rx aripiprazole 15 mg tablet 15 mg PO QHS #30 tabs 09/15/22 10/21/22 Rx captopril 25 mg tablet 25 mg PO Q12H HTN #60 tabs 10/14/22 10/21/22 Rx sevelamer carbonate 800 mg tablet 800 mg PO TIDCC high phosphorous 10/14/22 10/21/22 Rx #180 tabs promethazine 50 mg tablet 50 mg PO Q6H PRN nausea and 10/17/22 10/21/22 Rx vomiting #120 tabs insulin glargine 100 unit/mL (3 10 unit subcut QAM 10/21/22 10/21/22 History mL) subcutaneous pen insulin glargine 100 unit/mL (3 20 unit subcut QPM 10/21/22 10/21/22 History mL) subcutaneous pen Allergies Allergy/AdvReac Type Severity Reaction Status Date / Time aspirin Allergy Severe Anaphylaxis Verified 10/20/22 12:59 gabapentin Allergy Severe Anaphylaxis Verified 10/20/22 12:59 honey Allergy Severe Anaphylaxis Verified 10/20/22 12:59 metoclopramide Allergy Severe Anaphylaxis Verified 10/20/22 12:59 prochlorperazine Allergy Severe Anaphylaxis Verified 10/20/22 12:59 sumatriptan Allergy Severe Anaphylaxis Verified 10/20/22 12:59 tiagabine [From Gabitril] Allergy Severe Anaphylaxis Verified 10/20/22 12:59 adhesive Allergy Mild Blister Verified 10/20/22 12:59 ceftriaxone [From Rocephin] Allergy Mild Hives Verified 10/20/22 12:59 Penicillins Allergy Mild Hives Verified 10/20/22 12:59 topiramate [From Topamax] Allergy Mild Rash Verified 10/20/22 12:59 droperidol [From INAPSINE] AdvReac Severe Seizure Verified 10/20/22 12:59 ketamine AdvReac Intermediate Anxiety Verified 10/20/22 12:59 vancomycin AdvReac Intermediate Itching Verified 10/20/22 12:59 hydroxyzine AdvReac Mild Confusion Verified 10/20/22 12:59 morphine AdvReac Mild Blister Verified 10/20/22 12:59 Physical Examination Vital Signs Vital signs: Temp Pulse Resp BP Pulse Ox O2 Del Method 98.0 F 80 16 111/70 100 Room Air 10/21/22 16:00 10/21/22 16:00 10/21/22 16:00 10/21/22 16:00 10/21/22 16:00 10/21/22 16:00 General physical appearance General physical exam: well developed, well nourished and moderate distress Eyes Eye exam: other (Blind LEFT eye (macular degeneration) / Cataract Right eye) ENT ENT exam: normal pinna, normal nares and no congestion Head Head exam IM: Present atraumatic and normocephalic Neck Neck exam: no masses, trachea midline and no venous distension Cardiovascular Cardiovascular exam IM: Present normal rate and rhythm Respiratory Respiratory exam: normal expansion and clear to auscultation Abdomen Abdomen: Present soft, non tender and bowel sounds Integumentary Integumentary: Present other (TTP LEFT posterior heel, warm, edematous, odorous draiange of Stage 4 DFU. Thick plantar callus under RIGHT anterior lateral border of foot. / Onychomycosis toenails both feet. ) Neurologic Neurologic: Present other (PERIPHERAL NEUROPAHTY both feet and lower legs) Musculoskeletal Musculoskeletal: Present other (Deformities of feet and toes. ) Psychiatric Psychiatric: Present oriented to time, oriented to person, oriented to place, speech is normal, memory intact and other (Hurting and in pain over LEFT foot / heel. ) Results Labs 10/20/22 14:10/21/22 07:20 Labs: Abnormal lab results 10/20/22 10/20/22 10/21/22 Range/Units : 14: 07:20 RBC 2.55 L (3.59-5.38) M/mcL Hgb 7.6 L (11.2-15.7) g/dL Hct 24.5 L (34.1-44.9) % RDW 17.2 H (11.5-14.5) % ESR > 130 H (0-30) mm/hr Sodium 131 L (133-145) mmol/L Potassium 5.5 H (3.3-5.1) mmol/L Chloride 91 L (96-108) mmol/L BUN 72 H 78 H (6-20) mg/dL Creatinine 5.5 H* 6.3 H* (0.6-1.1) mg/dL Phosphorus 6.1 H* (2.5-4.5) mg/dL Procalcitonin (<0.10) ng/mL 10/21/22 Range/Units 07:20 RBC (3.59-5.38) M/mcL Hgb (11.2-15.7) g/dL Hct (34.1-44.9) % RDW (11.5-14.5) % ESR (0-30) mm/hr Sodium (133-145) mmol/L Potassium (3.3-5.1) mmol/L Chloride (96-108) mmol/L BUN (6-20) mg/dL Creatinine (0.6-1.1) mg/dL Phosphorus (2.5-4.5) mg/dL Procalcitonin 0.34 H (<0.10) ng/mL Diabetes panel 10/20/22 10/21/22 Range/Units 14: 07:20 Sodium 131 L 133 (133-145) mmol/L Potassium 5.5 H 5.0 (3.3-5.1) mmol/L Chloride 91 L 96 (96-108) mmol/L Carbon Dioxide 24 24 (22-30) mmol/L BUN 72 H 78 H (6-20) mg/dL Creatinine 5.5 H* 6.3 H* (0.6-1.1) mg/dL Glucose 103 97 (70-105) mg/dL Calcium 9.1 8.9 (8.6-10.4) mg/dL Albumin 3.7 (3.2-5.2) gm/dL Calcium panel 10/20/22 10/21/22 Range/Units 14:23 07:20 Calcium 9.1 8.9 (8.6-10.4) mg/dL Phosphorus 6.1 H* (2.5-4.5) mg/dL Albumin 3.7 (3.2-5.2) gm/dL Pituitary panel 10/20/22 10/21/22 Range/Units 14: 07:20 Sodium 131 L 133 (133-145) mmol/L Potassium 5.5 H 5.0 (3.3-5.1) mmol/L Chloride 91 L 96 (96-108) mmol/L Carbon Dioxide 24 24 (22-30) mmol/L BUN 72 H 78 H (6-20) mg/dL Creatinine 5.5 H* 6.3 H* (0.6-1.1) mg/dL Glucose 103 97 (70-105) mg/dL Calcium 9.1 8.9 (8.6-10.4) mg/dL Adrenal panel 10/20/22 10/21/22 Range/Units 14:23 07:20 Sodium 131 L 133 (133-145) mmol/L Potassium 5.5 H 5.0 (3.3-5.1) mmol/L Chloride 91 L 96 (96-108) mmol/L Carbon Dioxide 24 24 (22-30) mmol/L BUN 72 H 78 H (6-20) mg/dL Creatinine 5.5 H* 6.3 H* (0.6-1.1) mg/dL Glucose 103 97 (70-105) mg/dL Calcium 9.1 8.9 (8.6-10.4) mg/dL Albumin 3.7 (3.2-5.2) gm/dL All other labs normal. Imaging Additional studies: Reviewed CT scan of LEFT foot and heel. A/P Narrative A/P Narrative: Assessment: Infected DFU LEFT posterior heel (Osteomyelitis) Trauma vs chronic wound site fracture of calcaneus DFU and callus under RIGHT lateral border of foot Comorbidities ESRD/ HD Chronic anemia ESRD HTN IDDM Macular degeneration Blind LEFT eye ? Early cataract Right eye Past h/o PE on Apixaban Suspect Secondary Hyperparathyroidism Plan of Treatment: Plan: NPO past midnight OR debridement of wounds. LEFT heel pulse lavage and bone biopsies / culture Debridement of RIGHT plantar callus. Antibiotics Medical management by Hospitalist ESRD / HD per Nephrology Will be following patient during hospitalization She NEEDS referral to a higher level of care Await DEVELOPMENTS. Time Spent With Patient Time: Total time spent is greater than 50% in coordination of care (as documented) at patient's floor/unit and/or counseling patient: Initial: Total time with patient: Greater than 90 minutes
[2022-10-21] MEDS ORDERED: VANCOMYCIN 1,000 MG in 0.9 % SODIUM CHLORIDE 250 ML IV SCH (18:45)
[2022-10-21] MEDS: HYDROmorphone 2 MG TABLET PO PRN (20:09)
[2022-10-21] MEDS: ARIPIPRAZOLE 5 MG TABLET PO SCH (20:09)
[2022-10-21] MEDS: CAPTOPRIL 12.5 MG TABLET PO SCH (20:10)
[2022-10-21] MEDS: OMEPRAZOLE 20 MG CAPSULE PO SCH (20:10)
[2022-10-21] MEDS: FUROSEMIDE 40 MG TABLET PO SCH (20:11)
[2022-10-21] MEDS: APIXABAN 5 MG TABLET PO SCH (20:12)
[2022-10-21] MEDS: INSULIN GLARGINE, HUMAN 1 UNIT/0.01 ML SQ SCH (20:54)
[2022-10-22] MEDS: PIPERACILLIN SODIUM/TAZOBACTAM 2.25 GM in DEXTROSE 5% IN WATER 50 ML IV SCH ×4 (00:46→21:26)
[2022-10-22] MEDS: HYDROmorphone 1 MG/ML SYRINGE IV PRN ×5 (05:47→20:40)
[2022-10-22] MEDS: INSULIN LISPRO 1 UNIT/0.01 ML UNIT SQ SCH ×4 (07:04→21:13)
[2022-10-22] MEDS: SEVELAMER 800 MG TABLET PO SCH ×3 (07:05→17:12)
[2022-10-22] MEDS ORDERED: GENTAMICIN SULFATE 800 MG/20 ML VIAL IR ONE (07:30)
--- NOTE | 2022-10-22 07:36 | Nephrology Progress Note ---
SUBJECTIVE Subjective Patient information: Note initiated : 10/22/22 at 7:31 am Patient: Paige Lemos 52 y/o F admitted on 10/21/22 for Debridement Left Posterior Heel, Pulse Lavage. Chief Complaint: Left foot ucer Pertinent ROS: Left foot ulcer Pain Weakness Constitutional Vitals: Vital Signs Temp Pulse Resp BP Pulse Ox O2 Del Method 97.8 F 70 16 110/58 94 Room Air 10/22/22 02:37 10/22/22 02:37 10/22/22 02:37 10/22/22 02:37 10/22/22 02:37 10/22/22 02:37 Period Temp Pulse Resp BP Sys/Toro Pulse Ox O2 Del Method O2 Flow Rate Last 24 Hr 97.6 F-98.1 F 67-89 16-17 100-162/57-73 94-100 Room Air-Room Air Intake and Output 10/21/22 10/22/22 10/22/22 19:59 03:59 11:59 Intake Total 240 950 50 Output Total 3000 400 Balance -2760 550 50 Weight 206 lb Intake & Output: Intake & Output 10/21/22 10/22/22 10/22/22 19:59 03:59 11:59 Intake Total 240 950 50 Output Total 3000 400 Balance -2760 550 50 Weight 206 lb Intake: IV 350 50 Zosyn 2.25 gm In Dextrose 5% in 100 50 Water 50 ml @ 100 mls/hr IV Q8H GIANNA Rx#:[id number] Vancomycin 1,000 mg In Sodium 250 Chloride 0.9% 250 ml @ 250 mls/ hr IV ONCE GIANNA Rx#:[id number] Oral 240 600 Output: Void Amount 400 Hemodialysis UF 3000 Other: Percent of Meal Consumed 50% Urine Appearance Clear Urine Color Yellow General appearance: cooperative and no acute distress Head Head exam: Present normal inspection Eye Eye exam: Present normal appearance ENT ENT exam: Present mucous membranes moist Respiratory Respiratory exam: Absent respiratory distress Cardiovascular Cardiovascular exam: Present normal rate and rhythm GI/Abdominal GI/Abdominal exam: Present soft; Absent tenderness Extremities Exam Extremities exam: Absent joint swelling or pedal edema Neurological Exam Neurological exam: Present alert and oriented X3 Psychiatric Psychiatric exam: Present normal affect and normal mood Skin Skin exam: Present warm; Absent rash A/P Assessment and plan (1) ESRD on hemodialysis: Assessment and plan: Paige Lemos is a 52-year-old female with end stage renal disease on home hemodialysis, chronic anemia due to ESRD, hypertension, diabetes mellitus type 1, peripheral neuropathy, macular degeneration with blindness, pulmonary embolism on Apixaban, sent to ED from the wound clinic on 10/20/22 for non healing left calcaneus diabetic foot ulcer. Nephrology consultation was requested for end stage renal disease. End stage renal disease on home hemodialysis. Chronic anemia due to ESRD, receiving Aranesp at the home dialysis clinic. Hyperkalemia. Hyponatremia. Hyperphosphatemia. Left calcaneal non healing diabetic foot ulcer with left posterior inferior calcaneus fracture, suspected peripheral vascular disease and osteomyelitis. MRI left foot on 10/21/22: Abnormal signal in the calcaneus consistent with osteomyelitis in the right clinical setting. ESR on 10/21/22: >130. Progress: Hemodialysis on 10/21/22: F250, 4 hours, QB 400, QD 800, Dialysate (2K, CO2 35, Na 138), UF: 2-3 kg Excision debridement of left posterior calcaneus ulcer, bonebiopsy and culture, excision of right foot plantar anterior lateral border site callus on 10/22/22. Recommendations/Plan: Next hemodialysis tomorrow. tank terminal gauger IV antibiotic treatment anticipated. Central picc placement at [facility] as outpatient after discharge would be the best option. Status: Chronic Narrative Plan of Treatment: Plan: NPO past midnight OR debridement of wounds. LEFT heel pulse lavage and bone biopsies / culture Debridement of RIGHT plantar callus. Antibiotics Medical management by Hospitalist ESRD / HD per Nephrology Will be following patient during hospitalization She NEEDS referral to a higher level of care Await DEVELOPMENTS. Time Spent With Patient Time: Total time spent is greater than 50% in coordination of care (as documented) at patient's floor/unit and/or counseling patient:
[2022-10-22] MEDS ORDERED: PROPOFOL 200 MG/20 ML VIAL IV ONE (07:42)
[2022-10-22] MEDS ORDERED: LIDOCAINE HCL/PF 100 MG/5 ML SYRINGE IV ONE (07:42)
[2022-10-22] MEDS ORDERED: DEXAMETHASONE 10 MG/ML VIAL ONE (07:42)
[2022-10-22] MEDS ORDERED: MIDAZOLAM 2 MG/2 ML VIAL ONE (07:42)
[2022-10-22] MEDS ORDERED: MAGNESIUM SULFATE 2 GM/50 ML BAG IV ONE (07:42)
[2022-10-22] MEDS ORDERED: fentaNYL 100 MCG/2 ML VIAL IV ONE (07:42)
[2022-10-22] MEDS ORDERED: ePHEDrine 50 MG/5 ML SYRINGE (ANEST) IV ONE (07:42)
[2022-10-22] MEDS ORDERED: KETAMINE 50 MG/ML Syringe (ANEST) IV ONE (07:42)
[2022-10-22] MEDS ORDERED: ONDANSETRON 4 MG/2 ML VIAL ONE (07:42)
[2022-10-22] MEDS ORDERED: GLYCOPYRROLATE 0.2 MG/ML VIAL IV ONE (07:42)
[2022-10-22] MEDS ORDERED: PHENYLephrine 1 MG/10 ML SYRINGE (ANEST) ONE (07:42)
[2022-10-22 07:51] LABS: Basophils # (Auto) 0.03 K/mcL (0.00-0.30); Basophils % (Auto) 0.5 % (0.0-2.0); Eosinophils # (Auto) 0.27 K/mcL (0.00-0.70); Eosinophils % (Auto) 4.1 % (0.0-7.0); Hematocrit 26.8 % (34.1-44.9); Hemoglobin 7.9 g/dL (11.2-15.7); Lymphocytes # (Auto) 1.83 K/mcL (1.50-4.80); Mean Cell Volume 98.5 fL (80.0-100.0); Mean Corpuscular HGB Conc 29.5 g/dL (31.0-36.0); Mean Platelet Volume 8.8 fL (8.8-12.5); Monocytes # (Auto) 0.64 K/mcL (0.10-0.90); Monocytes % (Auto) 9.8 % (1.0-12.0); Platelet Count 370 K/mcL (140-440); RBC 2.72 M/mcL (3.59-5.38); Red Cell Distribution Width 17.3 % (11.5-14.5); WBC 6.5 K/mcL (4.5-11.0)
[2022-10-22] MEDS ORDERED: ONDANSETRON 4 MG/2 ML VIAL IV PRN (07:59)
[2022-10-22] MEDS ORDERED: METHOCARBAMOL 1,000 MG/10 ML VIAL IV PRN (07:59)
[2022-10-22] MEDS ORDERED: NALOXONE HCL 0.4 MG/ML VIAL IV PRN (07:59)
[2022-10-22] MEDS ORDERED: LACTATED RINGERS 250 ML IV PRN (07:59)
[2022-10-22] MEDS ORDERED: METOPROLOL TARTRATE 5 MG/5 ML VIAL IV PRN (07:59)
[2022-10-22] MEDS ORDERED: ACETAMINOPHEN 1,000 MG/100 ML BAG IV ONE (07:59)
[2022-10-22] MEDS ORDERED: IPRATROPIUM/ALBUTEROL 3 ML AMPUL.NEB NEB PRN (07:59)
[2022-10-22] MEDS ORDERED: FLUMAZENIL 0.1 MG/ML ML IV PRN (07:59)
[2022-10-22] MEDS ORDERED: LABETALOL 5 MG/ML ML IV PRN (07:59)
--- NOTE | 2022-10-22 07:59 | Magnetic Resonance Report ---
INDICATION: osteomyelitis evaluation COMPARISON: FINDINGS: Multisequence multiplanar noncontrast MRI of the left foot Images show abnormal signal in the calcaneus. Abnormal soft tissue edema seen throughout the foot. No drainable fluid collections are identified. There is an effusion in the mortise joint. Image quality is limited Achilles tendon is intact IMPRESSION: Abnormal signal in the calcaneus consistent with osteomyelitis in the right clinical setting. Hasn't been any history of trauma? Cellulitis Interpreted and Authenticated by: Matthew Romano M.D. 10/22/22
[2022-10-22] MEDS ORDERED: LACTATED RINGERS 1,000 ML IV SCH (08:00)
[2022-10-22] MEDS: fentaNYL 100 MCG/2 ML VIAL IV PRN ×7 (08:52→09:10)
--- NOTE | 2022-10-22 08:55 | General Surgery Procedure Note ---
Date of procedure: Note initiated : 10/22/22 at 8:42 am Service Date, if different from initiated Date: [] Pre-op diagnosis: Stage 4 LEFT calcaneal PU Right foot plantar callus anterior lateral border Post-op diagnosis: same Procedure: Excision debridement of LEFT posterior calcaneus PU. BONE biopsy and culture. Excision of RIGHT foot plantar anterior lateral border site callus Findings: She does NOT have a LEFT calcaneal fracture (as reported in CT scan) This is a PU extending to posterior cortex bone Final wound dimensions 2.5CM x 3 CM x 2.5CM RIGHT foot plantar anterior lateral border callus. 3 CM x 3 CM x 0.5 CM Grafts/Implants: NONE Anesthesia: GLMA Surgeon: Enrico Martinez Estimated blood loss: 20 Pathology: other (BONE biopsy and cultures LEFT posterior heel ulcer site. ) Condition: stable Disposition: PACU
[2022-10-22] MEDS ORDERED: HYDROmorphone 1 MG/ML SYRINGE IV ONE (09:11)
[2022-10-22] MEDS ORDERED: HYDROmorphone 0.5 MG/0.5 ML SYRINGE ONE ×4 (09:15→09:43)
--- NOTE | 2022-10-22 10:37 | Operative Note ---
DATE OF OPERATION: 10/22/2022 PREOPERATIVE DIAGNOSES: 1. Stage IV pressure ulcer, left posterior heel calcaneal tuberosity. 2. Right plantar callus anterior lateral border of foot. POSTOPERATIVE DIAGNOSES: 1. Stage IV pressure ulcer, left posterior heel calcaneal tuberosity. 2. Right plantar callus anterior lateral border of foot. PROCEDURE: 1. Excision debridement of left posterior calcaneus pressure ulcer. Bone biopsy and bone cultures. Pulse lavage irrigation. 2. Excision of right foot plantar callus. SURGEON: Enrico Martinez M.D. FINDINGS: 1. The patient does not have a left calcaneal fracture as reported in the CT scan. This is a pressure ulcer from the posterior surface of the heel extending towards the underlying cortex bone of calcaneal tuberosity. Final wound dimensions 2.5 x 3 x 2.5 cm. 2. Right foot plantar anterior lateral border callus, 3 x 3 x 0.5 cm. SPECIMENS: Obtained left calcaneal bone biopsies and tissue culture. ANESTHESIA: General laryngeal mask airway. ANIMAL CARE TAKER: Owen Riojas CRNA. ESTIMATED BLOOD LOSS: 20 mL. COUNTS: Count of swabs, instruments, and needles was reported to be correct. CONDITION: Operation was well tolerated. NOTE: Postoperatively, I called patient's friend and I updated him of her progress. INDICATIONS FOR SURGERY: This is a 52-year-old, white female with multiple comorbid longstanding medical problems, starting with insulin-dependent diabetes, peripheral neuropathy, diabetic retinopathy, neuropathic pressure ulcers, and end-stage renal disease with hemodialysis. The patient also has PAD and secondary hyperparathyroidism, which will need ongoing management and further evaluation as her condition progresses. This time around, she was admitted with severe, excruciating pain and worsening of left posterior heel ulcer site with throbbing pain. She was scheduled for surgery today, but had to be admitted to the hospital earlier. Having stabilized her condition and undergoing dialysis last night, she is taken to the OR for surgery this morning. PROCEDURE NOTE IN DETAIL: After obtaining informed consent, patient was taken to the operating room. Timeout was called. She was anesthetized uneventfully in supine position using laryngeal mask airway. The wound sites were identified. Extensive preparation was carried out from the tips of the toes, proximal foot, heel and legs up to the knee bilaterally. We first proceeded to excise and debride the ulcer of her left posterior heel. Using a rat tooth pickup and Metzenbaum scissors, the devitalized open wound margins were excised concentrically and tangentially until all the necrotic tissue was removed. This led to the exposed bone tuberosity. The ulcer site extends deep into the cortex of the bone. There is no evidence of calcaneal fracture. We used a rongeur to obtain airline security representative bone biopsies and tissue samples for culture. Additionally, a core of wound was biopsied using a bone aspiration biopsy needle. Copious irrigation of this area was carried out with 3 liters of normal saline and pulse lavage irrigation system. The second 3 liter bag contained normal saline and 800 mg of gentamicin. Upon completion, the wound site looked clean, pink and bled normally. Wound edge bleeders were controlled with electrocoagulation Bovie. Dressings consisted of Xeroform gauze reinforced with 2-inch Kerlix packing held together with another piece of Xeroform gauze, 4 x 4, ABD pad, Kerlix, Coban, and Jeremiah bandages, respectively. Attention was turned to the callus on the right plantar anterior lateral foot site. Using a Jaziel scissor and sharp tooth pickup, this callus was excised in multiple segments until all the nonviable tissue was removed and relatively healthy-appearing skin structure was identified around the wound edges. The wound base itself is actually a stage I/stage II wound. This was carefully debrided with #5 sharp curette. Dressings consisted of bacitracin ointment, 4 x 4 gauze, Kerlix, and Jeremiah bandages, respectively. VD:[place] Job ID: [id number] Doc ID: [id number] Enrico Martinez MD
[2022-10-22] MEDS: CAPTOPRIL 12.5 MG TABLET PO SCH ×2 (11:26→21:02)
[2022-10-22] MEDS: APIXABAN 5 MG TABLET PO SCH ×2 (11:28→21:01)
[2022-10-22] MEDS: DULoxetine 30 MG CAPSULE PO SCH (11:28)
[2022-10-22] MEDS: FUROSEMIDE 40 MG TABLET PO SCH ×2 (11:29→21:02)
[2022-10-22] MEDS: LEVOTHYROXINE 75 MCG TABLET PO SCH (11:29)
[2022-10-22] MEDS: INSULIN GLARGINE, HUMAN 1 UNIT/0.01 ML SQ SCH ×2 (11:30→21:14)
--- NOTE | 2022-10-22 12:00 | Internal Med Progress Note ---
SUBJECTIVE Subjective Patient information: Note initiated : 10/22/22 at 11:53 am Service Date, if different from initiated Date: [] Patient: Paige Lemos 52 y/o F admitted on 10/21/22 for Debridement Left Posterior Heel, Pulse Lavage. Chief Complaint: [] Interval history: Ms. 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 She has a history of multiple toe amputations from right foot with poorly healing wound for which she has received extensive recent hyperbaric oxygen treatment. She has now in the last several weeks developed a left heel wound that has opened and now has exposed bone. Her wound care physician referred her to the ER for further evaluation and management. Workup in the ER is notable for obvious foot wound with bone, CT of the foot notes a calcaneal fracture communicating with soft tissue infection. Arterial Duplex studies of the legs note patent left leg arteries but the right notes greater than 50% stenosis in mid and distal SFA as well as multiple greater than 50% stenosis in the anterior, peroneal and posterior tibial arteries. The Radiologist suggests CT abominal aortogram with run-off or MR equivalent. ER kristy dent made many attempts to facilitate transfer to a tertiary center with the ability to perform HD and also with Vascular Surgery and Podiatry available but have thus far been unsuccessful in securing transfer to a facility with these capabilities. Pt understands she is being admitted to a faclity without Podiatry or Vascular Surgery. Blood cultures were obtained, Vancomycin and Zosyn were given. Admission was requested to continue the workup. Oct 22, Pt went to OR this AM with Dr. Silva for debridement. No calcaneal fracture was noted. MRI of the foot is consistent with calcaneal osteo. Bone Bx and Cx obtained in the OR. Tele ID consult ordered. Will need Abx plan. Unable to obtain MR Angio with runoff to assess LE vascular supply due to ESRD. Constitutional Vitals: Vital Signs Temp Pulse Resp BP Pulse Ox O2 Del Method O2 Flow Rate 98.6 F 79 14 153/65 93 Nasal Cannula 0 10/22/22 10:11 10/22/22 10:11 10/22/22 10:11 10/22/22 10:11 10/22/22 10:11 10/22/22 10:11 10/22/22 10:11 Period Temp Pulse Resp BP Sys/Toro Pulse Ox O2 Del Method O2 Flow Rate Last 24 Hr 97.3 F-98.6 F 70-89 8-20 100-162/50-73 92-100 Nasal Cannula-R oom Air 0-4 Intake and Output 10/21/22 10/22/22 10/22/22 19:59 03:59 11:59 Intake Total 168 281 5588 Output Total 3000 400 20 Balance -2760 550 1105 Weight 93.44 kg Intake & Output: Intake & Output 10/21/22 10/22/22 10/22/22 19:59 03:59 11:59 Intake Total 934 615 8720 Output Total 3000 400 20 Balance -2760 550 1105 Weight 93.44 kg Intake: IV 350 170 Lactated Ringers 1,000 ml @ 20 20 mls/hr IV .Q24H [facility]NA Rx#: [id number] Zosyn 2.25 gm In Dextrose 5% in 100 50 Water 50 ml @ 100 mls/hr IV Q8H [facility] Rx#:[id number] Vancomycin 1,000 mg In Sodium 250 Chloride 0.9% 250 ml @ 250 mls/ hr IV ONCE [facility] Rx#:[id number] Oral 240 600 IV - Manual Only 955 Output: Void Amount 400 Hemodialysis UF 3000 Estimated Blood Loss 20 Other: Percent of Meal Consumed 50% Urine Appearance Clear Urine Color Yellow General appearance: no acute distress Head Head exam: Present atraumatic ENT ENT exam: Present mucous membranes moist Respiratory Respiratory exam: Present normal respiratory exam and CTAB Cardiovascular Cardiovascular exam: Present normal rate and rhythm GI/Abdominal GI/Abdominal exam: Present normal bowel sounds and soft Neurological Exam Neurological exam: Present CN II-XII intact and oriented X3 OBJ DATA Labs 10/22/22 05:55 10/21/22 07:20 Labs: Abnormal Lab Results 10/22/22 10/21/22 10/21/22 05:55 07:20 07:20 RBC 2.72 L Hgb 7.9 L Hct 26.8 L POC Hct MCHC 29.5 L RDW 17.3 H Immature Gran % (Auto) 0.6 H ESR POC Sodium Sodium POC Potassium Potassium Chloride POC BUN BUN 78 H Creatinine 6.3 H* POC Creatinine POC Glucose POC WB Ioniz Calcium Phosphorus C-Reactive Protein Procalcitonin 0.34 H 10/20/22 10/20/22 10/20/22 14:28 14:23 14:23 RBC Hgb Hct POC Hct 27.0 L MCHC RDW Immature Gran % (Auto) ESR POC Sodium 131 L Sodium 131 L POC Potassium 5.2 H Potassium 5.5 H Chloride 91 L POC BUN 82 H BUN 72 H Creatinine 5.5 H* POC Creatinine 7.4 H* POC Glucose 115 H POC WB Ioniz Calcium 1.13 L Phosphorus 6.1 H* C-Reactive Protein 3.90 H Procalcitonin 10/20/22 07:28 RBC 2.55 L Hgb 7.6 L Hct 24.5 L POC Hct MCHC RDW 17.2 H Immature Gran % (Auto) ESR > 130 H POC Sodium Sodium POC Potassium Potassium Chloride POC BUN BUN Creatinine POC Creatinine POC Glucose POC WB Ioniz Calcium Phosphorus C-Reactive Protein Procalcitonin Meds: Medications Apixaban (Apixaban 5 Mg Tablet) 2.5 mg PO BID [facility] Last Admin: 10/22/22 11:28 Dose: 2.5 mg Captopril (Captopril 12.5 Mg Tablet) 25 mg PO BID [facility] Last Admin: 10/22/22 11:26 Dose: 25 mg Dextrose (Dextrose 50% 50 Ml Vial) 0 ml IV UD PRN PRN Reason: Per Sliding Scale Diagnostic Test (Pha) (Accu-Chek 1 Each Strip) 1 each FS ACHS [facility] Last Admin: 10/22/22 10:52 Dose: 1 each Diphenhydramine HCl (Diphenhydramine 50 Mg/Ml Vial) 25 mg IV Q4HP PRN PRN Reason: Allergic Symptoms, Itching Duloxetine HCl (Duloxetine 30 Mg Capsule) 120 mg PO DAILY [facility] Last Admin: 10/22/22 11:28 Dose: 120 mg Furosemide (Furosemide 40 Mg Tablet) 40 mg PO BID [facility] Last Admin: 10/22/22 11:29 Dose: 40 mg Glucose (Dextrose 31 Gm Oral.Susp) 15 gm PO PRN PRN PRN Reason: Hypoglycemia Hydromorphone HCl (Hydromorphone 1 Mg/Ml Syringe) 1 mg IV Q2HP PRN; Protocol PRN Reason: Per Pain Protocol Last Admin: 10/21/22 16:23 Dose: 1 mg Hydromorphone HCl (Hydromorphone 2 Mg Tablet) 4 mg PO Q4HP PRN PRN Reason: Pain Last Admin: 10/21/22 20:09 Dose: 4 mg Piperacillin Sod/Tazobactam (Sod 2.25 gm/ Dextrose) 50 mls @ 100 mls/hr IV Q8H [facility]; Protocol Last Infusion: 10/22/22 06:18 Dose: Infused Insulin Glargine (Insulin Glargine, Human 1 Unit/0.01 Ml) 15 unit SQ BID [facility] Last Admin: 10/22/22 11:30 Dose: 15 units Insulin Human Lispro (Insulin Lispro 1 Unit/0.01 Ml Unit) 0 unit SQ ACHS [facility]; Protocol Last Admin: 10/22/22 11:31 Dose: 6 units Levothyroxine Sodium (Levothyroxine 75 Mcg Tablet) 75 mcg PO QDAY [facility] Last Admin: 10/22/22 11:29 Dose: 75 mcg Omeprazole (Omeprazole 20 Mg Capsule) 20 mg PO QHS [facility] Last Admin: 10/21/22 20:10 Dose: 20 mg Methylphenidate Hcl (5 Mg Tablet) 1 dose PO HS [facility] Last Admin: 10/22/22 00:31 Dose: Not Given Promethazine HCl (Promethazine 25 Mg Tablet) 50 mg PO Q6HP PRN PRN Reason: Nausea And Vomiting Sevelamer Carbonate (Sevelamer 800 Mg Tablet) 800 mg PO TIDCC [facility] Last Admin: 10/22/22 07:05 Dose: Not Given Sodium Chloride (0.9 % Sodium Chloride 10 Ml Syringe) 10 ml IV Q8 [facility] Vancomycin HCl (Vancomycin Per Pharmacy) 1 order IV UD [facility]; Protocol A/P Assessment and plan (1) Osteomyelitis: Assessment and plan: - left calcaneal osteo - s/p wound debridement by Dr. China Gomez 1 - ID consulted - will need outpatient Abx plan - continue empiric vanc/zosyn - wound and bone cultures pending Status: Acute (2) Calcaneus fracture, left: Assessment and plan: - fracture reported on CT not seen in OR nor on MRI Status: Acute (3) ESRD (end stage renal disease): Assessment and plan: - nephrology following Status: Acute (4) Type 2 diabetes mellitus treated with insulin: Assessment and plan: - Lantus and SSI Status: Acute (5) Chronic pain: Assessment and plan: - continue home meds Status: Chronic Narrative Plan of Treatment: Plan: NPO past midnight OR debridement of wounds. LEFT heel pulse lavage and bone biopsies / culture Debridement of RIGHT plantar callus. Antibiotics Medical management by Hospitalist ESRD / HD per Nephrology Will be following patient during hospitalization She NEEDS referral to a higher level of care Await DEVELOPMENTS. Time Spent With Patient Time: Total time spent is greater than 50% in coordination of care (as documented) at patient's floor/unit and/or counseling patient: QUALITY VTE Deep Vein Thrombosis/Pulmonary Embolism Present on Admission: No
--- NOTE | 2022-10-22 12:03 | Internal Med Progress Note ---
SUBJECTIVE Subjective Patient information: Note initiated : 10/22/22 at 12:03 pm Service Date, if different from initiated Date: [] Patient: Paige Lemos 52 y/o F admitted on 10/21/22 for Debridement Left Posterior Heel, Pulse Lavage. Chief Complaint: [] Interval history: Ms. 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 She has a history of multiple toe amputations from right foot with poorly healing wound for which she has received extensive recent hyperbaric oxygen treatment. She has now in the last several weeks developed a left heel wound that has opened and now has exposed bone. Her wound care physician referred her to the ER for further evaluation and management. Workup in the ER is notable for obvious foot wound with bone, CT of the foot notes a calcaneal fracture communicating with soft tissue infection. Arterial Duplex studies of the legs note patent left leg arteries but the right notes greater than 50% stenosis in mid and distal SFA as well as multiple greater than 50% stenosis in the anterior, peroneal and posterior tibial arteries. The Radiologist suggests CT abominal aortogram with run-off or MR equivalent. ER kristy dent made many attempts to facilitate transfer to a tertiary center with the ability to perform HD and also with Vascular Surgery and Podiatry available but have thus far been unsuccessful in securing transfer to a facility with these capabilities. Pt understands she is being admitted to a faclity without Podiatry or Vascular Surgery. Blood cultures were obtained, Vancomycin and Zosyn were given. Admission was requested to continue the workup. Oct 22, Pt went to OR this AM with Dr. Silva for debridement. No calcaneal fracture was noted. MRI of the foot is consistent with calcaneal osteo. Bone Bx and Cx obtained in the OR. Tele ID consult ordered. Will need Abx plan. Unable to obtain MR Angio with runoff to assess LE vascular supply due to ESRD. Constitutional Vitals: Vital Signs Temp Pulse Resp BP Pulse Ox O2 Del Method O2 Flow Rate 98.6 F 79 16 153/65 95 Room Air 0 10/22/22 10:11 10/22/22 10:11 10/22/22 10:30 10/22/22 10:11 10/22/22 10:30 10/22/22 10:30 10/22/22 10:11 Period Temp Pulse Resp BP Sys/Toro Pulse Ox O2 Del Method O2 Flow Rate Last 24 Hr 97.3 F-98.6 F 70-89 8-20 100-155/50-73 92-100 Nasal Cannula- Room Air 0-4 Intake and Output 10/22/22 10/22/22 10/22/22 03:59 11:59 19:59 Intake Total 950 1125 Output Total 400 20 Balance 550 1105 Weight 93.44 kg Intake & Output: Intake & Output 10/22/22 10/22/22 10/22/22 03:59 11:59 19:59 Intake Total 950 1125 Output Total 400 20 Balance 550 1105 Weight 93.44 kg Intake: IV 350 170 Lactated Ringers 1,000 ml @ 20 20 mls/hr IV .Q24H [facility] Rx#: [id number] Zosyn 2.25 gm In Dextrose 5% in 100 50 Water 50 ml @ 100 mls/hr IV Q8H [facility] Rx#:[id number] Vancomycin 1,000 mg In Sodium 250 Chloride 0.9% 250 ml @ 250 mls/ hr IV ONCE [facility] Rx#:[id number] Oral 600 IV - Manual Only 955 Output: Void Amount 400 Estimated Blood Loss 20 Other: Urine Appearance Clear Urine Color Yellow OBJ DATA Labs 10/22/22 05:55 10/21/22 07:20 Labs: Abnormal Lab Results 10/22/22 10/21/22 10/21/22 05:55 07:20 07:20 RBC 2.72 L Hgb 7.9 L Hct 26.8 L POC Hct MCHC 29.5 L RDW 17.3 H Immature Gran % (Auto) 0.6 H ESR POC Sodium Sodium POC Potassium Potassium Chloride POC BUN BUN 78 H Creatinine 6.3 H* POC Creatinine POC Glucose POC WB Ioniz Calcium Phosphorus C-Reactive Protein Procalcitonin 0.34 H 10/20/22 10/20/22 10/20/22 14:28 14:23 14:23 RBC Hgb Hct POC Hct 27.0 L MCHC RDW Immature Gran % (Auto) ESR POC Sodium 131 L Sodium 131 L POC Potassium 5.2 H Potassium 5.5 H Chloride 91 L POC BUN 82 H BUN 72 H Creatinine 5.5 H* POC Creatinine 7.4 H* POC Glucose 115 H POC WB Ioniz Calcium 1.13 L Phosphorus 6.1 H* C-Reactive Protein 3.90 H Procalcitonin 10/20/22 07:28 RBC 2.55 L Hgb 7.6 L Hct 24.5 L POC Hct MCHC RDW 17.2 H Immature Gran % (Auto) ESR > 130 H POC Sodium Sodium POC Potassium Potassium Chloride POC BUN BUN Creatinine POC Creatinine POC Glucose POC WB Ioniz Calcium Phosphorus C-Reactive Protein Procalcitonin Meds: Medications Apixaban (Apixaban 5 Mg Tablet) 2.5 mg PO BID [facility] Last Admin: 10/22/22 11:28 Dose: 2.5 mg Captopril (Captopril 12.5 Mg Tablet) 25 mg PO BID [facility] Last Admin: 10/22/22 11:26 Dose: 25 mg Dextrose (Dextrose 50% 50 Ml Vial) 0 ml IV UD PRN PRN Reason: Per Sliding Scale Diagnostic Test (Pha) (Accu-Chek 1 Each Strip) 1 each FS ACHS [facility] Last Admin: 10/22/22 10:52 Dose: 1 each Diphenhydramine HCl (Diphenhydramine 50 Mg/Ml Vial) 25 mg IV Q4HP PRN PRN Reason: Allergic Symptoms, Itching Duloxetine HCl (Duloxetine 30 Mg Capsule) 120 mg PO DAILY [facility] Last Admin: 10/22/22 11:28 Dose: 120 mg Furosemide (Furosemide 40 Mg Tablet) 40 mg PO BID [facility] Last Admin: 10/22/22 11:29 Dose: 40 mg Glucose (Dextrose 31 Gm Oral.Susp) 15 gm PO PRN PRN PRN Reason: Hypoglycemia Hydromorphone HCl (Hydromorphone 1 Mg/Ml Syringe) 1 mg IV Q2HP PRN; Protocol PRN Reason: Per Pain Protocol Last Admin: 10/21/22 16:23 Dose: 1 mg Hydromorphone HCl (Hydromorphone 2 Mg Tablet) 4 mg PO Q4HP PRN PRN Reason: Pain Last Admin: 10/21/22 20:09 Dose: 4 mg Piperacillin Sod/Tazobactam (Sod 2.25 gm/ Dextrose) 50 mls @ 100 mls/hr IV Q8H [facility]; Protocol Last Infusion: 10/22/22 06:18 Dose: Infused Insulin Glargine (Insulin Glargine, Human 1 Unit/0.01 Ml) 15 unit SQ BID [facility] Last Admin: 10/22/22 11:30 Dose: 15 units Insulin Human Lispro (Insulin Lispro 1 Unit/0.01 Ml Unit) 0 unit SQ ACHS [facility]; Protocol Last Admin: 10/22/22 11:31 Dose: 6 units Levothyroxine Sodium (Levothyroxine 75 Mcg Tablet) 75 mcg PO QDAY [facility] Last Admin: 10/22/22 11:29 Dose: 75 mcg Omeprazole (Omeprazole 20 Mg Capsule) 20 mg PO QHS [facility] Last Admin: 10/21/22 20:10 Dose: 20 mg Methylphenidate Hcl (5 Mg Tablet) 1 dose PO HS [facility] Last Admin: 10/22/22 00:31 Dose: Not Given Promethazine HCl (Promethazine 25 Mg Tablet) 50 mg PO Q6HP PRN PRN Reason: Nausea And Vomiting Sevelamer Carbonate (Sevelamer 800 Mg Tablet) 800 mg PO TIDCC [facility] Last Admin: 10/22/22 07:05 Dose: Not Given Sodium Chloride (0.9 % Sodium Chloride 10 Ml Syringe) 10 ml IV Q8 [facility] Vancomycin HCl (Vancomycin Per Pharmacy) 1 order IV UD [facility]; Protocol A/P Assessment and plan (1) Osteomyelitis: Status: Acute (2) Calcaneus fracture, left: Status: Acute (3) ESRD (end stage renal disease): Status: Acute (4) Type 2 diabetes mellitus treated with insulin: Status: Acute (5) Chronic pain: Status: Chronic Narrative Plan of Treatment: Plan: NPO past midnight OR debridement of wounds. LEFT heel pulse lavage and bone biopsies / culture Debridement of RIGHT plantar callus. Antibiotics Medical management by Hospitalist ESRD / HD per Nephrology Will be following patient during hospitalization She NEEDS referral to a higher level of care Await DEVELOPMENTS. Time Spent With Patient Time: Total time spent is greater than 50% in coordination of care (as documented) at patient's floor/unit and/or counseling patient: QUALITY VTE Deep Vein Thrombosis/Pulmonary Embolism Present on Admission: No
[2022-10-22] MEDS: 0.9 % SODIUM CHLORIDE 10 ML SYRINGE IV SCH ×2 (14:10→21:25)
--- NOTE | 2022-10-22 14:38 | Infectious Disease Consult ---
HPI Date of Consult Consult Date: 10/22/22 Primary Care Provider: Bridger Benites MD Consult Narrative History of present illness: DATE OF OPERATION: 10/22/2022 PREOPERATIVE DIAGNOSES: 1. Stage IV pressure ulcer, left posterior heel calcaneal tuberosity. 2. Right plantar callus anterior lateral border of foot. POSTOPERATIVE DIAGNOSES: 1. Stage IV pressure ulcer, left posterior heel calcaneal tuberosity. 2. Right plantar callus anterior lateral border of foot. PROCEDURE: 1. Excision debridement of left posterior calcaneus pressure ulcer. Bone biopsy and bone cultures. Pulse lavage irrigation. 2. Excision of right foot plantar callus. Infectious diseases consulted for left foot osteomyelitis She is a known case of diabetes with complications, peripheral vascular disease, osteomyelitis in the past, status post amputation of the right fifth toe She has an AV fistula in the left upper extremity, this is 3 years old She gets dialyzed every other day She is now on Vanco and Zosyn She denies fever chills rigors etc. Pain is her major problems no leukocytosis She is not septic cc:: CC: Antolin Jacob MD Review of Systems All systems: reviewed and no additional remarkable complaints except as stated PFSH PFSH All Active Problems Calcaneus fracture, left (Acute) Osteomyelitis (Acute) ESRD (end stage renal disease) (Acute) Type 2 diabetes mellitus treated with insulin (Acute) Medicare annual wellness visit, initial (Acute) Apnea (Chronic) Blindness of one eye (Chronic) Cataract (Chronic) Chronic pain (Chronic) Diabetes mellitus with renal manifestation (Chronic) Hypothyroidism (Chronic) History of kidney stones (Chronic) 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) Lumbar disc disease (Chronic) Microhematuria (Chronic) Nephrolithiasis (Chronic 12/09/12) Overweight (Chronic 12/09/12) Peripheral neuropathy (Chronic 12/09/12) Polyneuropathy in diabetes (Chronic) Proteinuria (Chronic) Diabetic retinopathy associated with diabetes mellitus due to underlying condition (Chronic) SOB (shortness of breath) (Chronic) MRSA (methicillin resistant Staphylococcus aureus) (Chronic) Vitamin D deficiency (Chronic 01/18/13) Hypertensive renal disease (Chronic) Secondary hyperparathyroidism of renal origin (Chronic) Low back pain (Chronic) Hypertension, essential, benign (Chronic) Right bundle branch block (RBBB) determined by electrocardiography (Chronic) Gastroparesis (Chronic) Chronic narcotic use (Chronic) At risk for allergic reaction to medication (Chronic) ESRD on hemodialysis (Chronic) Anemia due to end stage renal disease (Chronic ~12/09/12) Cervical mass (Chronic) Celiac artery stenosis (Chronic) Abdominal pain (Chronic) UTI (urinary tract infection) (Chronic) Hyperlipidemia (Chronic) RUQ abdominal pain (Chronic) Arterial obstructive disease (Chronic) Macular degeneration (Chronic) History of stroke (Chronic) Anxiety disorder (Chronic) Depression (Chronic) Sleep apnea (Chronic) Muscle pain (Chronic) Muscle weakness (Chronic) Kidney cyst, acquired (Chronic) Hematuria (Chronic) SMAS (superior mesenteric artery syndrome) (Chronic) Renal disease (Chronic) Hypoglycemia unawareness associated with type 1 diabetes mellitus (Acute) Diabetic infection of right foot (Acute) V-tach (Acute) Type 1 diabetes mellitus with end-stage renal disease (Acute) Median arcuate ligament syndrome (Acute) Internal jugular (IJ) vein thromboembolism, acute (Acute) Foot ulcer (Acute) ESRD (end stage renal disease) on dialysis (Chronic) Complication of arteriovenous dialysis fistula (Acute) Dialysis complication (Acute) Hypotension of hemodialysis (Acute) Diabetic foot ulcer with osteomyelitis (Chronic) Mesenteric artery syndrome (superior) (Acute) Pulmonary embolus (Acute) Atypical chest pain (Acute) Acute flank pain (Acute) Acute abdominal pain (Acute) Episodic ataxia with slurred speech (Acute) Medical History Abdominal pain Abdominal pain Abnormal weight gain Acidosis Anemia due to end stage renal disease (~12/09/12) As above Anxiety disorder Apnea Arterial obstructive disease At risk for allergic reaction to medication dystonic reactions to Reglan (metoclopramide), Compazine (prochlorperazine) and Inapsine (droperidol) Bleeding pseudoaneurysm of left brachiocephalic AV fistula Blindness of one eye left Calf pain Cataract Celiac artery stenosis Cervical mass Chest pain Chest pain Chronic narcotic use for neuropathy; Dr. Shyam Harper, [place] Pain Chronic pain Complications, dialysis, catheter, mechanical Constipation Cystitis Depression Diabetes mellitus with renal manifestation Diabetic retinopathy associated with diabetes mellitus due to underlying condition DM (diabetes mellitus), type 1 with neurological complications Dyspnea Edema of lower extremity pitted, severity estimated LT: 1+ and RT: 2+ ESRD on hemodialysis Flank pain Fluid overload Foot ulcer Fracture, foot Gastroparesis History of kidney stones History of stroke X 2 Hyperkalemia Hyperlipidemia Hypertension, essential, benign Hypertensive renal disease BP near goal, good BP readings at home ct current meds follow low sodium diet will follow and optimize if elevated next visit Hypothyroidism Infection of hemodialysis tunneled catheter 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 Low back pain hx of laser disk Lumbar disc disease Macular degeneration Medicare annual wellness visit, initial Microhematuria MRSA (methicillin resistant Staphylococcus aureus) abscess 2007 Muscle pain Muscle weakness Nephrolithiasis (12/09/12) Nephropathy Orthopnea Overweight (12/09/12) Palpitation Pelvic pain Peripheral neuropathy (12/09/12) Pneumonia Polyneuropathy in diabetes Proteinuria Pulmonary embolus Pyelonephritis Renal disease END STAGE Retinal detachment Right bundle branch block (RBBB) determined by electrocardiography RUQ abdominal pain Secondary hyperparathyroidism of renal origin PTH improved from 133 to 65 phos is normal calcium is at upper limit of normal ct renvela and cholecalciferol will monitor and optimize meds if needed Sepsis Urosepsis was noted in chart note. Shoulder pain Sleep apnea SOB (shortness of breath) Staphylococcus aureus bacteremia UTI (lower urinary tract infection) UTI (urinary tract infection) UTI (urinary tract infection) UTI (urinary tract infection) Vision changes Vitamin D deficiency (01/18/13) Vitreous hemorrhage Vomiting Weakness Weakness of right lower extremity Surgical History History of appendectomy History of arthroscopy of right shoulder History of section History of cholecystectomy History of foot surgery History of hysterectomy with oophorectomy History of shoulder surgery Right shoulder. History of surgery Celiac Plexus Block Lt. L1 w/sed 10/27/2018 S/P arteriovenous (AV) fistula creation (02/10/18) Family History Father Cerebral infarction Essential hypertension Mother Type 1 diabetes mellitus Social History household members: significant other lives independently: Yes marital status: other details: engaged occupational status: disabled physical activity: none smoking status: Never smoker alcohol intake frequency: former alcohol drinker substance use type: does not use seatbelt use: always MEDS/ALLERGIES Home Medications and Allergies Home Medications Medication Instructions Recorded Confirmed Type docusate sodium 100 mg capsule 100 mg PO DAILYP PRN Constipation 12/05/19 10/21/22 History (Colace) clobetasol 0.05 % scalp solution 1 applic topical QDAY PRN Itching 03/20/20 10/21/22 History diphenhydramine HCl 25 mg capsule 25 - 75 mg PO Q6H PRN Allergy 03/20/20 10/21/22 History (Benadryl) Symptoms omeprazole 20 mg capsule,delayed 20 mg PO QHS 06/26/21 10/21/22 History release doxycycline hyclate 100 mg tablet 100 mg PO QDAY 02/10/22 10/21/22 History apixaban 2.5 mg tablet 2.5 mg PO BID Left IJ thrombosis 03/31/22 10/21/22 Rx (not completly occluding vessel #60 tabs insulin lispro 100 unit/mL 10 unit (0.1 mL) subcut TID #15 mL 05/22/22 10/21/22 Rx subcutaneous pen (Humalog KwikPen (U-100) Insulin) ondansetron 4 mg disintegrating 4 mg PO Q4H PRN for 05/22/22 10/21/22 Rx tablet nausea/vomiting #30 tabs duloxetine 60 mg capsule,delayed 120 mg PO QDAY #180 caps 06/10/22 10/21/22 Rx release levothyroxine 75 mcg tablet 75 mcg PO QDAY #90 tabs 08/19/22 10/21/22 Rx aripiprazole 15 mg tablet 15 mg PO QHS #30 tabs 09/15/22 10/21/22 Rx captopril 25 mg tablet 25 mg PO Q12H HTN #60 tabs 10/14/22 10/21/22 Rx sevelamer carbonate 800 mg tablet 800 mg PO TIDCC high phosphorous 10/14/22 10/21/22 Rx #180 tabs promethazine 50 mg tablet 50 mg PO Q6H PRN nausea and 10/17/22 10/21/22 Rx vomiting #120 tabs insulin glargine 100 unit/mL (3 10 unit subcut QAM 10/21/22 10/21/22 History mL) subcutaneous pen insulin glargine 100 unit/mL (3 20 unit subcut QPM 10/21/22 10/21/22 History mL) subcutaneous pen Allergies Allergy/AdvReac Type Severity Reaction Status Date / Time aspirin Allergy Severe Anaphylaxis Verified 10/20/22 12:59 gabapentin Allergy Severe Anaphylaxis Verified 10/20/22 12:59 honey Allergy Severe Anaphylaxis Verified 10/20/22 12:59 metoclopramide Allergy Severe Anaphylaxis Verified 10/20/22 12:59 prochlorperazine Allergy Severe Anaphylaxis Verified 10/20/22 12:59 sumatriptan Allergy Severe Anaphylaxis Verified 10/20/22 12:59 tiagabine [From Gabitril] Allergy Severe Anaphylaxis Verified 10/20/22 12:59 adhesive Allergy Mild Blister Verified 10/20/22 12:59 ceftriaxone [From Rocephin] Allergy Mild Hives Verified 10/20/22 12:59 Penicillins Allergy Mild Hives Verified 10/20/22 12:59 topiramate [From Topamax] Allergy Mild Rash Verified 10/20/22 12:59 droperidol [From INAPSINE] AdvReac Severe Seizure Verified 10/20/22 12:59 ketamine AdvReac Intermediate Anxiety Verified 10/20/22 12:59 vancomycin AdvReac Intermediate Itching Verified 10/20/22 12:59 hydroxyzine AdvReac Mild Confusion Verified 10/20/22 12:59 morphine AdvReac Mild Blister Verified 10/20/22 12:59 Physical Examination Vital Signs Vital signs: Temp Pulse Resp BP Pulse Ox O2 Del Method O2 Flow Rate 98.6 F 83 16 114/54 92 Room Air 0 10/22/22 10:11 10/22/22 14:00 10/22/22 10:30 10/22/22 14:00 10/22/22 14:00 10/22/22 14:00 10/22/22 10:11 Constitutional General appearance: no acute distress EENT Neck: supple Respiratory Effort: normal Auscultation: right: clear Cardiovascular Cardiovascular: regular rate and rhythm Gastrointestinal Gastrointestinal: normoactive bowel sounds Results Laboratory Findings 10/22/22 05:55 10/21/22 07:20 Abnormal lab findings: Abnormal Labs 10/20/22 10/20/22 10/20/22 07:28 14:23 14:23 RBC 2.55 L Hgb 7.6 L Hct 24.5 L POC Hct MCHC RDW 17.2 H Immature Gran % (Auto) ESR > 130 H POC Sodium Sodium 131 L POC Potassium Potassium 5.5 H Chloride 91 L POC BUN BUN 72 H Creatinine 5.5 H* POC Creatinine POC Glucose POC WB Ioniz Calcium Phosphorus 6.1 H* C-Reactive Protein 3.90 H Procalcitonin 10/20/22 10/21/22 10/21/22 14:28 07:20 07:20 RBC Hgb Hct POC Hct 27.0 L MCHC RDW Immature Gran % (Auto) ESR POC Sodium 131 L Sodium POC Potassium 5.2 H Potassium Chloride POC BUN 82 H BUN 78 H Creatinine 6.3 H* POC Creatinine 7.4 H* POC Glucose 115 H POC WB Ioniz Calcium 1.13 L Phosphorus C-Reactive Protein Procalcitonin 0.34 H 10/22/22 05:55 RBC 2.72 L Hgb 7.9 L Hct 26.8 L POC Hct MCHC 29.5 L RDW 17.3 H Immature Gran % (Auto) 0.6 H ESR POC Sodium Sodium POC Potassium Potassium Chloride POC BUN BUN Creatinine POC Creatinine POC Glucose POC WB Ioniz Calcium Phosphorus C-Reactive Protein Procalcitonin Microbiology: Microbiology 10/20/22 07:20 Blood Blood Culture - Preliminary 10/20/22 07:15 Blood Blood Culture - Preliminary A/P Assessment and plan (1) Osteomyelitis: Assessment and plan: 52-year-old female patient with a diabetes, vasculopath and ESRD on hemodialysis every other day History of chronic osteomyelitis, acute on chronic this admission On doxycycline for the last couple of months Prior history of osteomyelitis in the right foot followed by amputation of the right fifth toe She is now status post debridement and bone biopsy on the left heel and right callus debridement She is on Vanco and Zosyn Pain is a major problem She is afebrile and hemodynamically stable, not toxic Plan: Recommendations: She is already s/p bone biopsy This is the best thing that can be offered to her I will leave her on Vanco and Zosyn This combo carries a risk of nephrotoxicity but she is already a dialysis patient At the time of discharge, we can simplify the antibiotics based on the microbiological yield She received doxycycline for several months, this could skew the microbiology results ID will follow her peripherally and guide you We will try to dose antibiotics with dialysis. Duration of treatment will be 2 months She needs sugar control, wound care, podiatry follow-up, offloading etc. Status: Acute Narrative Plan of Treatment: Plan: NPO past midnight OR debridement of wounds. LEFT heel pulse lavage and bone biopsies / culture Debridement of RIGHT plantar callus. Antibiotics Medical management by Hospitalist ESRD / HD per Nephrology Will be following patient during hospitalization She NEEDS referral to a higher level of care Await DEVELOPMENTS. Time Spent With Patient Time: Total time spent is greater than 50% in coordination of care (as documented) at patient's floor/unit and/or counseling patient:
--- NOTE | 2022-10-22 14:55 | Internal Med Progress Note ---
SUBJECTIVE Subjective Patient information: Note initiated : 10/22/22 at 2:49 pm Service Date, if different from initiated Date: [] Patient: Paige Lemos a 52 y/o F admitted on 10/21/22 for Debridement Left Posterior Heel, Pulse Lavage. Chief Complaint: [] Interval history: HPI: Ms. 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 She has a history of multiple toe amputations from right foot with poorly healing wound for which she has received extensive recent hyperbaric oxygen treatment. She has now in the last several weeks developed a left heel wound that has opened and now has exposed bone. Her wound care physician referred her to the ER for further evaluation and management. Workup in the ER is notable for obvious foot wound with bone, CT of the foot notes a calcaneal fracture communicating with soft tissue infection. Arterial Duplex studies of the legs note patent left leg arteries but the right notes greater than 50% stenosis in mid and distal SFA as well as multiple greater than 50% stenosis in the anterior, peroneal and posterior tibial arteries. The Radiologist suggests CT abominal aortogram with run-off or MR equivalent. ER made made many attempts to facilitate transfer to a tertiary center with the ability to perform HD and also with Vascular Surgery and Podiatry available but have thus far been unsuccessful in securing transfer to a facility with these capabilities. Pt understands she is being admitted to a faclity without Podiatry or Vascular Surgery. Blood cultures were obtained, Vancomycin and Zosyn were given. Admission was requested to continue the workup. Oct 22, Pt went to OR this AM with Dr. Silva for debridement. No calcaneal fracture was noted. MRI of the foot is consistent with calcaneal osteo. Bone Bx and Cx obtained in the OR. Tele ID consult ordered. Will need Abx plan. Unable to obtain MR Angio with runoff to assess LE vascular supply due to ESRD. 3/2 Review of Systems: denies headache/fever/chills/nausea/vomiting/chest or abdominal pain/cough/dyspnea/diarrhea. Otherwise see above. PHYSICAL EXAM: General: Alert, Awake, No acute Distress Eyes/N/T: EOMI, no scleral icterus, Head/Neck: neck supple, full ROM, CV: RRR, No murmurs, Pulm: Clear b/l, no wheezing/rhonchi/rales, no respiratory distress Abd: soft, nontender, +BS x4 Ext: no clubbing/cyanosis/edema, Left heel in dressings Neuro: Alert, no focal deficits, moves all extremities, Psychiatric: Skin: warm/dry, normal color Constitutional Vitals: Vital Signs Temp Pulse Resp BP Pulse Ox O2 Del Method O2 Flow Rate 98.6 F 83 16 114/54 92 Room Air 0 10/22/22 10:11 10/22/22 14:00 10/22/22 10:30 10/22/22 14:00 10/22/22 14:00 10/22/22 14:00 10/22/22 10:11 Period Temp Pulse Resp BP Sys/Toro Pulse Ox O2 Del Method O2 Flow Rate Last 24 Hr 97.3 F-98.6 F 70-89 8-20 100-155/50-70 89-100 Nasal Cannula- Room Air 0-4 Intake and Output 10/22/22 10/22/22 10/22/22 03:59 11:59 19:59 Intake Total 950 1125 Output Total 400 20 Balance 550 1105 Weight 93.44 kg Intake & Output: Intake & Output 10/22/22 10/22/22 10/22/22 03:59 11:59 19:59 Intake Total 950 1125 Output Total 400 20 Balance 550 1105 Weight 93.44 kg Intake: IV 350 170 Lactated Ringers 1,000 ml @ 20 20 mls/hr IV .Q24H GIANNA Rx#: [id number] Zosyn 2.25 gm In Dextrose 5% in 100 50 Water 50 ml @ 100 mls/hr IV Q8H GIANNA Rx#:[id number] Vancomycin 1,000 mg In Sodium 250 Chloride 0.9% 250 ml @ 250 mls/ hr IV ONCE GIANNA Rx#:[id number] Oral 600 IV - Manual Only 955 Output: Void Amount 400 Estimated Blood Loss 20 Other: Urine Appearance Clear Urine Color Yellow OBJ DATA Labs 10/22/22 05:55 10/21/22 07:20 Labs: Abnormal Lab Results 10/22/22 10/21/22 10/21/22 05:55 07:20 07:20 RBC 2.72 L Hgb 7.9 L Hct 26.8 L POC Hct MCHC 29.5 L RDW 17.3 H Immature Gran % (Auto) 0.6 H ESR POC Sodium Sodium POC Potassium Potassium Chloride POC BUN BUN 78 H Creatinine 6.3 H* POC Creatinine POC Glucose POC WB Ioniz Calcium Phosphorus C-Reactive Protein Procalcitonin 0.34 H 10/20/22 10/20/22 10/20/22 14:28 14:23 14:23 RBC Hgb Hct POC Hct 27.0 L MCHC RDW Immature Gran % (Auto) ESR POC Sodium 131 L Sodium 131 L POC Potassium 5.2 H Potassium 5.5 H Chloride 91 L POC BUN 82 H BUN 72 H Creatinine 5.5 H* POC Creatinine 7.4 H* POC Glucose 115 H POC WB Ioniz Calcium 1.13 L Phosphorus 6.1 H* C-Reactive Protein 3.90 H Procalcitonin 10/20/22 07:28 RBC 2.55 L Hgb 7.6 L Hct 24.5 L POC Hct MCHC RDW 17.2 H Immature Gran % (Auto) ESR > 130 H POC Sodium Sodium POC Potassium Potassium Chloride POC BUN BUN Creatinine POC Creatinine POC Glucose POC WB Ioniz Calcium Phosphorus C-Reactive Protein Procalcitonin Meds: Medications Apixaban (Apixaban 5 Mg Tablet) 2.5 mg PO BID [facility] Last Admin: 10/22/22 11:28 Dose: 2.5 mg Captopril (Captopril 12.5 Mg Tablet) 25 mg PO BID [facility] Last Admin: 10/22/22 11:26 Dose: 25 mg Dextrose (Dextrose 50% 50 Ml Vial) 0 ml IV UD PRN PRN Reason: Per Sliding Scale Diagnostic Test (Pha) (Accu-Chek 1 Each Strip) 1 each FS ACHS [facility] Last Admin: 10/22/22 10:52 Dose: 1 each Diphenhydramine HCl (Diphenhydramine 50 Mg/Ml Vial) 25 mg IV Q4HP PRN PRN Reason: Allergic Symptoms, Itching Duloxetine HCl (Duloxetine 30 Mg Capsule) 120 mg PO DAILY [facility] Last Admin: 10/22/22 11:28 Dose: 120 mg Furosemide (Furosemide 40 Mg Tablet) 40 mg PO BID [facility] Last Admin: 10/22/22 11:29 Dose: 40 mg Glucose (Dextrose 31 Gm Oral.Susp) 15 gm PO PRN PRN PRN Reason: Hypoglycemia Hydromorphone HCl (Hydromorphone 1 Mg/Ml Syringe) 1 mg IV Q2HP PRN; Protocol PRN Reason: Per Pain Protocol Last Admin: 10/22/22 12:26 Dose: 1 mg Hydromorphone HCl (Hydromorphone 2 Mg Tablet) 4 mg PO Q4HP PRN PRN Reason: Pain Last Admin: 10/21/22 20:09 Dose: 4 mg Piperacillin Sod/Tazobactam (Sod 2.25 gm/ Dextrose) 50 mls @ 100 mls/hr IV Q8H [facility]; Protocol Last Admin: 10/22/22 14:10 Dose: 100 mls/hr Insulin Glargine (Insulin Glargine, Human 1 Unit/0.01 Ml) 15 unit SQ BID [facility] Last Admin: 10/22/22 11:30 Dose: 15 units Insulin Human Lispro (Insulin Lispro 1 Unit/0.01 Ml Unit) 0 unit SQ ACHS [facility]; Protocol Last Admin: 10/22/22 11:31 Dose: 6 units Levothyroxine Sodium (Levothyroxine 75 Mcg Tablet) 75 mcg PO QDAY [facility] Last Admin: 10/22/22 11:29 Dose: 75 mcg Omeprazole (Omeprazole 20 Mg Capsule) 20 mg PO QHS [facility] Last Admin: 10/21/22 20:10 Dose: 20 mg Promethazine HCl (Promethazine 25 Mg Tablet) 50 mg PO Q6HP PRN PRN Reason: Nausea And Vomiting Sevelamer Carbonate (Sevelamer 800 Mg Tablet) 800 mg PO TIDCC [facility] Last Admin: 10/22/22 12:22 Dose: 800 mg Sodium Chloride (0.9 % Sodium Chloride 10 Ml Syringe) 10 ml IV Q8 [facility] Last Admin: 10/22/22 14:10 Dose: 10 ml Vancomycin HCl (Vancomycin Per Pharmacy) 1 order IV UD [facility]; Protocol A/P Narrative Plan of Treatment: A: #Osteomyelitis Left heel: s/p I&D (10/22) #Chronic diabetic foot wounds: #Hyponatremia, chronic: #DM complicated by retinopathy and ESRD: #ESRD: on home hemodialysis #Anemia, chronic: #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 Foster -abx per ID> cont vanc/zosyn for now, abx duration for 2-months -Nephrology following for inpatient hemodialysis -basal and SSI -Eliquis 2.5 mg twice daily. -Home amlodipine, carvedilol, Lasix, Abilify, duloxetine, methylphenidate, omeprazole, sevelamer. -Case management following to assist with logistics for IV abx upon d/c -Follow up with podiatry after discharge -DVT prophylaxis: On Eliquis Time Spent With Patient Time: Total time spent is greater than 50% in coordination of care (as documented) at patient's floor/unit and/or counseling patient: QUALITY VTE Deep Vein Thrombosis/Pulmonary Embolism Present on Admission: No
[2022-10-22] MEDS: HYDROmorphone 2 MG TABLET PO PRN (21:00)
[2022-10-22] MEDS: OMEPRAZOLE 20 MG CAPSULE PO SCH (21:01)
[2022-10-22] MEDS: ARIPIPRAZOLE 5 MG TABLET PO SCH (21:01)
[2022-10-22] MEDS: diphenhydrAMINE 50 MG/ML VIAL IV PRN (21:26)
[2022-10-23] MEDS: HYDROmorphone 1 MG/ML SYRINGE IV PRN ×4 (00:50→17:27)
[2022-10-23] MEDS: HYDROmorphone 2 MG TABLET PO PRN ×5 (02:52→23:31)
[2022-10-23] MEDS: 0.9 % SODIUM CHLORIDE 10 ML SYRINGE IV SCH ×3 (05:30→21:12)
[2022-10-23] MEDS: PIPERACILLIN SODIUM/TAZOBACTAM 2.25 GM in DEXTROSE 5% IN WATER 50 ML IV SCH ×3 (05:32→21:13)
[2022-10-23 06:48] LABS: Hematocrit 23.9 % (34.1-44.9); Hemoglobin 7.2 g/dL (11.2-15.7); Mean Corpuscular HGB Conc 30.1 g/dL (31.0-36.0); Platelet Count 359 K/mcL (140-440); RBC 2.44 M/mcL (3.59-5.38); Red Cell Distribution Width 17.2 % (11.5-14.5); WBC 7.7 K/mcL (4.5-11.0)
[2022-10-23 08:09] LABS: ALT/SGPT < 5 U/L (<40); AST/SGOT 9 U/L (<32); Albumin/Globulin Ratio 0.8 (1.0-2.3); Alkaline Phosphatase 46 U/L (39-117); Bilirubin,Total 0.2 mg/dL (0.1-1.0); Blood Urea Nitrogen 58 mg/dL (6-20); Carbon Dioxide 25 mmol/L (22-30); Chloride 91 mmol/L (96-108); Globulin 3.6 gm/dL (2.2-3.7); Glomerular Filtration Rate 8; Glucose 203 mg/dL (70-105)
--- NOTE | 2022-10-23 08:22 | Nephrology Progress Note ---
SUBJECTIVE Subjective Patient information: Note initiated : 10/23/22 at 8:17 am Patient: Paige Lemos 52 y/o F admitted on 10/21/22 for Debridement Left Posterior Heel, Pulse Lavage. Chief Complaint: Weakness Pertinent ROS: Weakness Left foot ulcer Constitutional Vitals: Vital Signs Temp Pulse Resp BP Pulse Ox O2 Del Method O2 Flow Rate 97.8 F 74 14 136/66 96 Room Air 0 10/23/22 04:28 10/23/22 04:28 10/23/22 04:28 10/23/22 04:28 10/23/22 04:28 10/23/22 04:28 10/22/22 20:00 Period Temp Pulse Resp BP Sys/Toro Pulse Ox O2 Del Method O2 Flow Rate Last 24 Hr 97.0 F-98.6 F 74-88 8-20 106-155/50-67 89-100 Nasal Cannula- Room Air 0-4 Intake and Output 10/22/22 10/23/22 10/23/22 19:59 03:59 11:59 Intake Total 796 93 2908 Output Total 200 350 Balance 250 50 650 Weight 206 lb 222 lb 9.6 oz Intake & Output: Intake & Output 10/22/22 10/23/22 10/23/22 19:59 03:59 11:59 Intake Total 002 56 4101 Output Total 200 350 Balance 250 50 650 Weight 206 lb 222 lb 9.6 oz Intake: IV 210 50 50 Lactated Ringers 1,000 ml @ 20 160 mls/hr IV .Q24H GIANNA Rx#: [id number] Zosyn 2.25 gm In Dextrose 5% in 50 50 50 Water 50 ml @ 100 mls/hr IV Q8H GIANNA Rx#:[id number] Oral 240 950 Output: Void Amount 200 350 Other: Meal Nourishment/Supplement Percent of Meal Consumed 100% Feeding Ability Independent Urine Appearance Clear Clear Urine Color Yellow Bright Yellow Urine Odor Normal # Voids 1 General appearance: cooperative and no acute distress Head Head exam: Present normal inspection Eye Eye exam: Present normal appearance ENT ENT exam: Present mucous membranes moist Respiratory Respiratory exam: Absent respiratory distress Cardiovascular Cardiovascular exam: Present normal rate and rhythm GI/Abdominal GI/Abdominal exam: Present soft; Absent tenderness Extremities Exam Extremities exam: Absent joint swelling or pedal edema Neurological Exam Neurological exam: Present alert and oriented X3 Psychiatric Psychiatric exam: Present normal affect and normal mood Skin Skin exam: Present warm; Absent rash A/P Assessment and plan (1) ESRD on hemodialysis: Assessment and plan: Paige Lemos is a 52-year-old female with end stage renal disease on home hemodialysis, chronic anemia due to ESRD, hypertension, diabetes mellitus type 1, peripheral neuropathy, macular degeneration with blindness, pulmonary embolism on Apixaban, sent to ED from the wound clinic on 10/20/22 for non healing left calcaneus diabetic foot ulcer. Nephrology consultation was requested for end stage renal disease. End stage renal disease on home hemodialysis. Chronic anemia due to ESRD, receiving Aranesp at the home dialysis clinic. Hyponatremia, associated with ESRD, managed with hemodialysis. Left calcaneal non healing diabetic foot ulcer with left posterior inferior calcaneus fracture, suspected peripheral vascular disease and osteomyelitis. MRI left foot on 10/21/22: Abnormal signal in the calcaneus consistent with osteomyelitis in the right clinical setting. ESR on 10/21/22: >130. Progress: Hemodialysis on 10/21/22: F250, 4 hours, QB 400, QD 800, Dialysate (2K, CO2 35, Na 138), UF: 2-3 kg Excision debridement of left posterior calcaneus ulcer, bone biopsy and culture, excision of right foot plantar anterior lateral border site callus on 10/22/22. ID consult on 10/22/22. Vanco and Zosyn IV recommended for 2 months until bone biopsy culture results. Recommendations/Plan: Hemodialysis today. The patient seen and evaluated during hemodialysis. Next hemodialysis tomorrow. Duplex US ordered for history of central vein stenosis/thrombus before central picc placement at [facility] as outpatient after discharge. Status: Chronic Time Spent With Patient Time: Total time spent is greater than 50% in coordination of care (as documented) at patient's floor/unit and/or counseling patient:
[2022-10-23] MEDS: SEVELAMER 800 MG TABLET PO SCH ×3 (08:26→17:19)
[2022-10-23] MEDS: APIXABAN 5 MG TABLET PO SCH ×2 (08:26→20:54)
[2022-10-23] MEDS: CAPTOPRIL 12.5 MG TABLET PO SCH ×2 (08:26→20:32)
[2022-10-23] MEDS: DULoxetine 30 MG CAPSULE PO SCH (08:27)
[2022-10-23] MEDS: INSULIN LISPRO 1 UNIT/0.01 ML UNIT SQ SCH ×4 (08:27→21:04)
[2022-10-23] MEDS: INSULIN GLARGINE, HUMAN 1 UNIT/0.01 ML SQ SCH ×2 (08:27→21:04)
[2022-10-23] MEDS: FUROSEMIDE 40 MG TABLET PO SCH ×2 (08:27→20:53)
[2022-10-23] MEDS: LEVOTHYROXINE 75 MCG TABLET PO SCH (08:32)
--- NOTE | 2022-10-23 08:39 | Internal Med Progress Note ---
SUBJECTIVE Subjective Patient information: Note initiated : 10/23/22 at 8:39 am Service Date, if different from initiated Date: [] Patient: Paige Lemos a 52 y/o F admitted on 10/21/22 for Debridement Left Posterior Heel, Pulse Lavage. Chief Complaint: [] Interval history: HPI: Ms. 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 She has a history of multiple toe amputations from right foot with poorly healing wound for which she has received extensive recent hyperbaric oxygen treatment. She has now in the last several weeks developed a left heel wound that has opened and now has exposed bone. Her wound care physician referred her to the ER for further evaluation and management. Workup in the ER is notable for obvious foot wound with bone, CT of the foot notes a calcaneal fracture communicating with soft tissue infection. Arterial Duplex studies of the legs note patent left leg arteries but the right notes greater than 50% stenosis in mid and distal SFA as well as multiple greater than 50% stenosis in the anterior, peroneal and posterior tibial arteries. The Radiologist suggests CT abominal aortogram with run-off or MR equivalent. ER made made many attempts to facilitate transfer to a tertiary center with the ability to perform HD and also with Vascular Surgery and Podiatry available but have thus far been unsuccessful in securing transfer to a facility with these capabilities. Pt understands she is being admitted to a faclity without Podiatry or Vascular Surgery. Blood cultures were obtained, Vancomycin and Zosyn were given. Admission was requested to continue the workup. Oct 22, Pt went to OR this AM with Dr. Silva for debridement. No calcaneal fracture was noted. MRI of the foot is consistent with calcaneal osteo. Bone Bx and Cx obtained in the OR. Tele ID consult ordered. Will need Abx plan. Unable to obtain MR Angio with runoff to assess LE vascular supply due to ESRD. 10/23 Patient had surgical I&D with bone biopsies done yesterday. Anemia present and mildly worsened from yesterday. Trend. Awaiting surgical cultures. Patient will need catheter placed at [facility]. Hyponatremia noted. Review of Systems: denies headache/fever/chills/nausea/vomiting/chest or abdominal pain/cough/dyspnea/diarrhea. Otherwise see above. PHYSICAL EXAM: General: Alert, Awake, No acute Distress Eyes/N/T: EOMI, no scleral icterus, Head/Neck: neck supple, full ROM, CV: RRR, 2/6SM Pulm: Clear b/l, no wheezing/rhonchi/rales, no respiratory distress Abd: soft, nontender, +BS x4 Ext: no clubbing/cyanosis, LLE mild edema, Left heel in dressings as well as right foot in dressings Neuro: Alert, no focal deficits, moves all extremities, Psychiatric: Skin: warm/dry, normal color Constitutional Vitals: Vital Signs Temp Pulse Resp BP Pulse Ox O2 Del Method O2 Flow Rate 97.8 F 74 14 136/66 96 Room Air 0 10/23/22 04:28 10/23/22 04:28 10/23/22 04:28 10/23/22 04:28 10/23/22 04:28 10/23/22 04:28 10/22/22 20:00 Period Temp Pulse Resp BP Sys/Toro Pulse Ox O2 Del Method O2 Flow Rate Last 24 Hr 97.0 F-98.6 F 74-88 8-20 106-155/50-67 89-100 Nasal Cannula- Room Air 0-4 Intake and Output 10/22/22 10/23/22 10/23/22 19:59 03:59 11:59 Intake Total 414 63 8968 Output Total 200 350 Balance 250 50 650 Weight 93.44 kg 100.97 kg Intake & Output: Intake & Output 10/22/22 10/23/22 10/23/22 19:59 03:59 11:59 Intake Total 139 35 2210 Output Total 200 350 Balance 250 50 650 Weight 93.44 kg 100.97 kg Intake: IV 210 50 50 Lactated Ringers 1,000 ml @ 20 160 mls/hr IV .Q24H GIANNA Rx#: [id number] Zosyn 2.25 gm In Dextrose 5% in 50 50 50 Water 50 ml @ 100 mls/hr IV Q8H GIANNA Rx#:[id number] Oral 240 950 Output: Void Amount 200 350 Other: Meal Nourishment/Supplement Percent of Meal Consumed 100% Feeding Ability Independent Urine Appearance Clear Clear Urine Color Yellow Bright Yellow Urine Odor Normal # Voids 1 OBJ DATA Labs 10/23/22 05:20 10/23/22 05:20 Labs: Abnormal Lab Results 10/23/22 10/23/22 10/22/22 05:20 05:20 05:55 RBC 2.44 L 2.72 L Hgb 7.2 L 7.9 L Hct 23.9 L 26.8 L POC Hct MCHC 30.1 L 29.5 L RDW 17.2 H 17.3 H Immature Gran % (Auto) 0.6 H ESR POC Sodium Sodium 130 L POC Potassium Potassium Chloride 91 L POC BUN BUN 58 H Creatinine 5.7 H* POC Creatinine Glucose 203 H POC Glucose POC WB Ioniz Calcium Phosphorus C-Reactive Protein Albumin 3.0 L Albumin/Globulin Ratio 0.8 L Procalcitonin 10/21/22 10/21/22 10/20/22 07:20 07:20 14:28 RBC Hgb Hct POC Hct 27.0 L MCHC RDW Immature Gran % (Auto) ESR POC Sodium 131 L Sodium POC Potassium 5.2 H Potassium Chloride POC BUN 82 H BUN 78 H Creatinine 6.3 H* POC Creatinine 7.4 H* Glucose POC Glucose 115 H POC WB Ioniz Calcium 1.13 L Phosphorus C-Reactive Protein Albumin Albumin/Globulin Ratio Procalcitonin 0.34 H 10/20/22 10/20/22 10/20/22 14:23 14:23 07:28 RBC 2.55 L Hgb 7.6 L Hct 24.5 L POC Hct MCHC RDW 17.2 H Immature Gran % (Auto) ESR > 130 H POC Sodium Sodium 131 L POC Potassium Potassium 5.5 H Chloride 91 L POC BUN BUN 72 H Creatinine 5.5 H* POC Creatinine Glucose POC Glucose POC WB Ioniz Calcium Phosphorus 6.1 H* C-Reactive Protein 3.90 H Albumin Albumin/Globulin Ratio Procalcitonin Meds: Medications Apixaban (Apixaban 5 Mg Tablet) 2.5 mg PO BID [facility] Last Admin: 10/23/22 08:26 Dose: 2.5 mg Captopril (Captopril 12.5 Mg Tablet) 25 mg PO BID [facility] Last Admin: 10/23/22 08:26 Dose: 25 mg Dextrose (Dextrose 50% 50 Ml Vial) 0 ml IV UD PRN PRN Reason: Per Sliding Scale Diagnostic Test (Pha) (Accu-Chek 1 Each Strip) 1 each FS ACHS [facility] Last Admin: 10/23/22 08:14 Dose: 1 each Diphenhydramine HCl (Diphenhydramine 50 Mg/Ml Vial) 25 mg IV Q4HP PRN PRN Reason: Allergic Symptoms, Itching Last Admin: 10/22/22 21:26 Dose: 25 mg Duloxetine HCl (Duloxetine 30 Mg Capsule) 120 mg PO DAILY [facility] Last Admin: 10/23/22 08:27 Dose: 120 mg Furosemide (Furosemide 40 Mg Tablet) 40 mg PO BID [facility] Last Admin: 10/23/22 08:27 Dose: 40 mg Glucose (Dextrose 31 Gm Oral.Susp) 15 gm PO PRN PRN PRN Reason: Hypoglycemia Hydromorphone HCl (Hydromorphone 1 Mg/Ml Syringe) 1 mg IV Q2HP PRN; Protocol PRN Reason: Per Pain Protocol Last Admin: 10/23/22 05:31 Dose: 1 mg Hydromorphone HCl (Hydromorphone 2 Mg Tablet) 4 mg PO Q4HP PRN PRN Reason: Pain Last Admin: 10/23/22 08:28 Dose: 4 mg Piperacillin Sod/Tazobactam (Sod 2.25 gm/ Dextrose) 50 mls @ 100 mls/hr IV Q8H [facility]; Protocol Last Infusion: 10/23/22 06:06 Dose: Infused Insulin Glargine (Insulin Glargine, Human 1 Unit/0.01 Ml) 15 unit SQ BID [facility] Last Admin: 10/23/22 08:27 Dose: 15 units Insulin Human Lispro (Insulin Lispro 1 Unit/0.01 Ml Unit) 0 unit SQ [facility]; Protocol Last Admin: 10/23/22 08:27 Dose: 6 units Levothyroxine Sodium (Levothyroxine 75 Mcg Tablet) 75 mcg PO QDAY [facility] Last Admin: 10/23/22 08:32 Dose: 75 mcg Omeprazole (Omeprazole 20 Mg Capsule) 20 mg PO QHS [facility] Last Admin: 10/22/22 21:01 Dose: 20 mg Promethazine HCl (Promethazine 25 Mg Tablet) 50 mg PO Q6HP PRN PRN Reason: Nausea And Vomiting Sevelamer Carbonate (Sevelamer 800 Mg Tablet) 800 mg PO TIDCC [facility] Last Admin: 10/23/22 08:26 Dose: 800 mg Sodium Chloride (0.9 % Sodium Chloride 10 Ml Syringe) 10 ml IV Q8 [facility] Last Admin: 10/23/22 05:30 Dose: 10 ml Vancomycin HCl (Vancomycin Per Pharmacy) 1 order IV UD [facility]; Protocol A/P Narrative A/P Narrative: A: #Osteomyelitis Left heel: s/p I&D (10/22) #Chronic diabetic foot wounds: #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 Foster pending surgical cx's -abx per ID> cont vanc/zosyn for now, abx duration for 2-months, pending surgical cx's -Nephrology following for inpatient hemodialysis, PICC to be placed at [facility] upon d/c -basal (increase)and SSI -Eliquis 2.5 mg twice daily. -Home amlodipine, carvedilol, Lasix, Abilify, duloxetine, methylphenidate, omeprazole, sevelamer. -Case management following to assist with logistics for IV abx upon d/c -Follow up with podiatry after discharge -DVT prophylaxis: On Eliquis Time Spent With Patient Time: Total time spent is greater than 50% in coordination of care (as documented) at patient's floor/unit and/or counseling patient: Subsequent: Total time with patient: 50 - 65 Minutes QUALITY VTE Deep Vein Thrombosis/Pulmonary Embolism Present on Admission: No
[2022-10-23] MEDS ORDERED: INSULIN GLARGINE, HUMAN 1 UNIT/0.01 ML SQ ONE (09:20)
[2022-10-23 09:29] LABS: Anisocytosis 1+ (None Seen); Eosinophils % (Manual) 4 % (0-7); Lymphocytes % 28 % (15-49); Monocytes % (Manual) 10 % (1-12); Platelet Estimate NORMAL (Normal); Polychromasia FEW (None Seen); RBC Morphology ABNORMAL (Normal); Reactive Lymphocytes 1 % (0-2); Segmented Neutrophils % 57 % (38-78)
--- NOTE | 2022-10-23 11:52 | Discharge Summary ---
Discharge Provider Provider IMPORTANT FOLLOW-UP INFORMATION FOR PCP: Patient information: Note initiated : 10/23/22 at 11:50 am Service Date, if different from initiated Date: [] Patient: Paige Lemos 52 y/o F admitted on 10/21/22 for Debridement Left Posterior Heel, Pulse Lavage. Chief Complaint: [] Date of admission: 10/21/22 11:40 Primary care physician: Bridger Benites MD Consults: 10/20/22 Consult to Physician [CONS] Stat Comment: Consulting Provider: Alberta Weir Reason For Exam: Physician to Consult Consult to Physician [CONS] Stat Comment: Consulting Provider: Antolin Jacob Reason For Exam: Physician to Consult 10/22/22 10:11 Consult to Physician [CONS] Routine Comment: Consulting Provider: Bijan MARTINEZ Reason For Exam: Physician to Consult COURSE Hospital Course Hospital course: HPI: Ms. 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 She has a history of multiple toe amputations from right foot with poorly healing wound for which she has received extensive recent hyperbaric oxygen treatment. She has now in the last several weeks developed a left heel wound that has opened and now has exposed bone. Her wound care physician referred her to the ER for further evaluation and management. Workup in the ER is notable for obvious foot wound with bone, CT of the foot notes a calcaneal fracture communicating with soft tissue infection. Arterial Duplex studies of the legs note patent left leg arteries but the right notes greater than 50% stenosis in mid and distal SFA as well as multiple greater than 50% stenosis in the anterior, peroneal and posterior tibial arteries. The Radiologist suggests CT abominal aortogram with run-off or MR equivalent. ER made made many attempts to facilitate transfer to a tertiary center with the ability to perform HD and also with Vascular Surgery and Podiatry available but have thus far been unsuccessful in securing transfer to a facility with these capabilities. Pt understands she is being admitted to a faclity without Podiatry or Vascular Surgery. Blood cultures were obtained, Vancomycin and Zosyn were given. Admission was requested to continue the workup. Oct 22, Pt went to OR this AM with Dr. Silva for debridement. No calcaneal fracture was noted. MRI of the foot is consistent with calcaneal osteo. Bone Bx and Cx obtained in the OR. Tele ID consult ordered. Will need Abx plan. Unable to obtain MR Angio with runoff to assess LE vascular supply due to ESRD. 10/23 Patient had surgical I&D with bone biopsies done yesterday. Anemia present and mildly worsened from yesterday. Trend. Awaiting surgical cultures. Patient will need catheter placed at [facility]. Hyponatremia noted. 10/24 Undergoing dialysis today. Lost IV access. Will discuss with nephrology. No overnight event or new complaints. Hemoglobin stable. Awaiting surgical cultures. 10/25 Patient complains of diarrhea since last night and blames the antibiotics. No new fevers or chills. IV antibiotics per nephrology and infectious disease. Awaiting surgical cultures. Continue dressing changes per wound care. 10/26 No overnight event or new complaints. Still awaiting surgical cultures. 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 Foster pending surgical cx's -abx per ID> Dapto/cefepime with abx duration for 2-months,Also Flagyl for 2-3 weeks -Nephrology following for inpatient hemodialysis, PICC or Port to be placed at [facility] upon d/c Discharge diagnosis: Left heel osteomyelitis diabetic chronic wounds. Secondary discharge diagnosis: Diabetes with retinopathy and neuropathy end-stage renal disease hyponatremia prevascular disease chronic anemia hypertension chronic pain SMA syndrome depression anxiety Time Spent with Patient Time attestation: Total time spent providing and/or coordinating discharge services: Time spent: Greater than 30 minutes EXAM Constitutional Vitals: Temp Pulse Resp BP Pulse Ox O2 Del Method O2 Flow Rate 95 F L 79 14 109/68 99 Room Air 0 10/23/22 10:50 10/23/22 11:36 10/23/22 08:00 10/23/22 11:36 10/23/22 08:00 10/23/22 08:00 10/22/22 20:00 Discharge Data Data Completed and Pending Labs on day of discharge: Labs from last 24 hours 10/23/22 10/23/22 05:20 05:20 WBC 7.7 RBC 2.44 L Hgb 7.2 L Hct 23.9 L MCV 98.0 MCH 29.5 MCHC 30.1 L RDW 17.2 H Plt Count 359 MPV 9.0 Seg Neutrophils % 57 Lymphocytes % 28 Monocytes % (Manual) 10 Eosinophils % (Manual) 4 Reactive Lymphocytes 1 Platelet Estimate Normal RBC Morphology Abnormal A Polychromasia Few A Anisocytosis 1+ A Sodium 130 L Potassium 4.5 Chloride 91 L Carbon Dioxide 25 Anion Gap 14.0 BUN 58 H Creatinine 5.7 H* GFR Calculation 8 Glucose 203 H Calcium 9.0 Total Bilirubin 0.2 AST 9 ALT < 5 Alkaline Phosphatase 46 Total Protein 6.6 Albumin 3.0 L Globulin 3.6 Albumin/Globulin Ratio 0.8 L Preliminary micro results at discharge 10/20/22 07:20 Blood Culture - Preliminary Blood 10/20/22 07:15 Blood Culture - Preliminary Blood Discharge Plan Patient/Caregiver Discharge Instructions Activity: increase activity as tolerated Diet: Consistent Carbohydrate Activity Restrictions/Additional Instructions: Continue IV antibiotics per nephrology and infectious disease. Prescriptions: Continued diphenhydramine HCl [Benadryl] 25 mg capsule 25 - 75 mg PO Q6H PRN (Reason: Allergy Symptoms) Rx Instructions: Dialysis - 75 mg orally (25 mg tablet) every 6 hours prn Itching clobetasol 0.05 % solution 1 applic TOPICAL QDAY PRN (Reason: Itching) Rx Instructions: 1 hemanth applied topically (0.05% cream) once a day Apply thin layer to affected area(s) prn apixaban 2.5 mg tablet 2.5 mg PO BID Qty: 60 11RF Rx Instructions: Call if excessive bleeding from AVF occurs insulin lispro [Humalog KwikPen Insulin] 100 unit/mL insulin pen 10 unit subcut TID Qty: 15 2RF ondansetron 4 mg tablet,disintegrating 4 mg PO Q4H PRN (Reason: for nausea/vomiting) Qty: 30 2RF duloxetine 60 mg capsule,delayed release(DR/EC) 120 mg PO QDAY Qty: 180 3RF levothyroxine 75 mcg tablet 75 mcg PO QDAY Qty: 90 0RF aripiprazole 15 mg tablet 15 mg PO QHS Qty: 30 5RF sevelamer carbonate 800 mg tablet 800 mg PO TIDCC Qty: 180 12RF Rx Instructions: given any time with eating. captopril 25 mg tablet 25 mg PO Q12H Qty: 60 12RF Rx Instructions: Hold dose immediately before home HD treatment promethazine 50 mg tablet 50 mg PO Q6H PRN (Reason: nausea and vomiting) Qty: 120 1RF doxycycline hyclate 100 mg tablet 100 mg PO QDAY docusate sodium [Colace] 100 mg capsule 100 mg PO DAILYP PRN (Reason: Constipation) omeprazole 20 mg Capsule,Delayed Release(Dr/Ec) 20 mg PO QHS insulin glargine 100 unit/mL (3 mL) Insulin Pen 10 unit SUBCUT QAM insulin glargine 100 unit/mL (3 mL) Insulin Pen 20 unit SUBCUT QPM hydromorphone 4 mg tablet 4 - 8 mg PO Q4HP PRN (Reason: pain) Other Ambulatory Orders: [facility] (ONCE) Location: None Selected Ordered By: Enrico Martinez Follow Up Plan Follow up with: Enrico Martinez MD [Physician] - (Follow up within 1 week after discharge for bilateral foot wounds. She is an established patient.) Bridger Benites MD [Primary Care Provider] - Plan of Treatment: Plan: Off loading scooter for LEFT foot and leg. Darco shoe for RIGHT foot. Continue rest of ongoing treatment. For dressing changes Thursday10/27/2022 Local wound care plan: RIGHT foot callus site. Skin moisturizing or repair creme, Mepilex, ROSINA and offloading Darco shoe. For LEFT foot posterior heel Clean with VASHE. Opened gauze over wound site treated with Silvasorb . Secure with ABD pad, ROSINA bandage. X 2 a week. If d/c f/u at wound care clinic in ONE weeks time. Telephone order given to Jing RUANO and Memo Kan RN. 52-year-old female patient with multiple medical issues ESRD on hemodialysis Vasculopath Left calcaneal osteomyelitis Status post debridement Bone sample is positive for acute on chronic osteo Microbiology negative On Vanco and Zosyn Cultures are negative so far Recommendations: At the time of discharge, we can simplify the antibiotics to IV daptomycin 8 mg/kg after each hemodialysis She gets dialyzed every other day we should hold statin when she is on dapto We can also leave her on IV cefepime 2 g after each hemodialysis OR The other option will be IV ertapenem 1 g after each hemodialysis She can get oral Flagyl 500 mg 3 times a day for 2 to 3 weeks She gets a weekly CBC, CMP and Cpk Fever, rash, myelosuppression,'s rhabdo, interstitial hepatitis, seizures, encephalopathy etc. will be the few side effects She needs sugar control, offloading, wound care etc. ID will sign off Please consult us if need be . Prognosis: Fair Overall status at discharge: patient is progressing back to baseline QUALITY VTE Deep Vein Thrombosis/Pulmonary Embolism Present on Admission: No
--- NOTE | 2022-10-23 13:25 | General Surgery Progress Note ---
SUBJECTIVE Subjective Patient information: Note initiated : 10/23/22 at 1:20 pm Service Date, if different from initiated Date: [] Patient: Paige Lemos 52 y/o F admitted on 10/21/22 for Debridement Left Posterior Heel, Pulse Lavage. Chief Complaint: [] Additional PMFSH (Level 3 Only): Saw patient along with Memo Kan RN. Reviewed plan of care with Dr. Pettit, Hospitalist. Reviewed input from ID and Nephrology.. Constitutional Vitals: Vital Signs Temp Pulse Resp BP Pulse Ox O2 Del Method O2 Flow Rate 95 F L 72 14 91/53 99 Room Air 0 10/23/22 10:50 10/23/22 12:56 10/23/22 08:10 10/23/22 12:56 10/23/22 08:10 10/23/22 08:10 10/22/22 20:00 Period Temp Pulse Resp BP Sys/Toro Pulse Ox O2 Del Method O2 Flow Rate Last 24 Hr 95 F-98.5 F 72-84 14-16 83-150/53-68 92-99 Room Air-Room Air 0 Intake and Output 10/23/22 10/23/22 10/23/22 03:59 11:59 19:59 Intake Total 50 1000 Output Total 600 Balance 50 400 Weight 222 lb 9.6 oz Intake & Output: Intake & Output 10/23/22 10/23/22 10/23/22 03:59 11:59 19:59 Intake Total 50 1000 Output Total 600 Balance 50 400 Weight 222 lb 9.6 oz Intake: IV 50 50 Zosyn 2.25 gm In Dextrose 5% in 50 50 Water 50 ml @ 100 mls/hr IV Q8H [facility] Rx#:[id number] Oral 950 Output: Void Amount 600 Other: Meal Nourishment/Supplement Percent of Meal Consumed 100% Feeding Ability Independent Urine Appearance Clear Urine Color Bright Yellow Urine Odor Normal # Voids 1 Exam: AVSS. No interval changes LUANA. Patient underwent scheduled hemodialysis. Dressings both feet, ankle and lower leg are CDI Final bone biopsy and cultures are pending. Patient does NOT have calcaneal fracture. A/P Narrative A/P Narrative: Assessment: Satisfactory post op progress. Patient needs primary dressing change Wound evaluation / Care planning before d/c Plan of Treatment: Plan: Change dressings tomorrow. Offloading scooter for LEFT foot. [employer] off loading shoe RIGHT foot. Wound care f/u 1 week after discharge. Time Spent With Patient Time: Total time spent is greater than 50% in coordination of care (as documented) at patient's floor/unit and/or counseling patient:
[2022-10-23] MEDS ORDERED: VANCOMYCIN 1,500 MG in 0.9 % SODIUM CHLORIDE 500 ML IV ONE (15:00)
[2022-10-23] MEDS: diphenhydrAMINE 50 MG/ML VIAL IV PRN (16:11)
--- NOTE | 2022-10-23 16:34 | Ultrasound Report ---
CLINICAL INFORMATION: Evaluate patency for PICC line COMPARISON: None. FINDINGS: The visualized subclavian, brachial, radial, ulnar, antecubital, cephalic and basilic veins in both upper extremities are all widely patent and easily compressible on color and spectral Doppler. IMPRESSION: Normal exam. No evidence of thrombus in either upper extremity Interpreted and Authenticated by: Joe Guevara 10/23/22
[2022-10-23] MEDS: ARIPIPRAZOLE 5 MG TABLET PO SCH (20:53)
[2022-10-23] MEDS: OMEPRAZOLE 20 MG CAPSULE PO SCH (20:54)
[2022-10-23] MEDS ORDERED: diphenhydrAMINE 25 MG CAPSULE ONE (21:17)
[2022-10-23] MEDS: diphenhydrAMINE 25 MG CAPSULE PO PRN (21:20)
[2022-10-24] MEDS: HYDROmorphone 2 MG TABLET PO PRN ×4 (04:31→19:18)
[2022-10-24] MEDS: 0.9 % SODIUM CHLORIDE 10 ML SYRINGE IV SCH ×3 (04:56→21:18)
[2022-10-24] MEDS: PIPERACILLIN SODIUM/TAZOBACTAM 2.25 GM in DEXTROSE 5% IN WATER 50 ML IV SCH ×3 (06:24→21:18)
[2022-10-24] MEDS: INSULIN LISPRO 1 UNIT/0.01 ML UNIT SQ SCH ×4 (07:33→20:43)
[2022-10-24 07:48] LABS: Basophils # (Auto) 0.11 K/mcL (0.00-0.30); Basophils % (Auto) 1.8 % (0.0-2.0); Eosinophils # (Auto) 0.34 K/mcL (0.00-0.70); Eosinophils % (Auto) 5.6 % (0.0-7.0); Hematocrit 33.3 % (34.1-44.9); Hemoglobin 8.9 g/dL (11.2-15.7); Lymphocytes % (Auto) 32.7 % (15.5-49.0); Mean Cell Volume 112.5 fL (80.0-100.0); Mean Corpuscular HGB Conc 26.7 g/dL (31.0-36.0); Mean Platelet Volume 9.4 fL (8.8-12.5); Monocytes # (Auto) 0.52 K/mcL (0.10-0.90); Monocytes % (Auto) 8.5 % (1.0-12.0); Neutrophils % (Auto) 50.6 % (38.0-78.0); Platelet Count 331 K/mcL (140-440); RBC 2.96 M/mcL (3.59-5.38); Red Cell Distribution Width 17.7 % (11.5-14.5); WBC 6.1 K/mcL (4.5-11.0)
[2022-10-24 08:04] LABS: Vancomycin,Random 23.6 ug/mL
[2022-10-24] MEDS: SEVELAMER 800 MG TABLET PO SCH ×3 (08:11→17:35)
[2022-10-24] MEDS: LEVOTHYROXINE 75 MCG TABLET PO SCH (08:11)
[2022-10-24] MEDS: FUROSEMIDE 40 MG TABLET PO SCH ×2 (08:11→20:41)
[2022-10-24] MEDS: DULoxetine 30 MG CAPSULE PO SCH (08:11)
[2022-10-24] MEDS: CAPTOPRIL 12.5 MG TABLET PO SCH ×2 (08:12→20:48)
[2022-10-24] MEDS: INSULIN GLARGINE, HUMAN 1 UNIT/0.01 ML SQ SCH ×2 (08:12→20:42)
[2022-10-24] MEDS: APIXABAN 5 MG TABLET PO SCH ×2 (08:13→20:42)
[2022-10-24 08:17] LABS: Blood Urea Nitrogen 37 mg/dL (6-20); Carbon Dioxide 23 mmol/L (22-30); Chloride 93 mmol/L (96-108); Glomerular Filtration Rate 13; Glucose 136 mg/dL (70-105)
[2022-10-24] MEDS: diphenhydrAMINE 25 MG CAPSULE PO PRN (08:20)
[2022-10-24] MEDS ORDERED: VANCOMYCIN 500 MG in 0.9 % SODIUM CHLORIDE 100 ML IV SCH (08:30)
--- NOTE | 2022-10-24 08:41 | Internal Med Progress Note ---
SUBJECTIVE Subjective Patient information: Note initiated : 10/24/22 at 8:39 am Service Date, if different from initiated Date: [] Patient: Paige Lemos a 52 y/o F admitted on 10/21/22 for Debridement Left Posterior Heel, Pulse Lavage. Chief Complaint: [] Interval history: HPI: Ms. 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 She has a history of multiple toe amputations from right foot with poorly healing wound for which she has received extensive recent hyperbaric oxygen treatment. She has now in the last several weeks developed a left heel wound that has opened and now has exposed bone. Her wound care physician referred her to the ER for further evaluation and management. Workup in the ER is notable for obvious foot wound with bone, CT of the foot notes a calcaneal fracture communicating with soft tissue infection. Arterial Duplex studies of the legs note patent left leg arteries but the right notes greater than 50% stenosis in mid and distal SFA as well as multiple greater than 50% stenosis in the anterior, peroneal and posterior tibial arteries. The Radiologist suggests CT abominal aortogram with run-off or MR equivalent. ER made made many attempts to facilitate transfer to a tertiary center with the ability to perform HD and also with Vascular Surgery and Podiatry available but have thus far been unsuccessful in securing transfer to a facility with these capabilities. Pt understands she is being admitted to a faclity without Podiatry or Vascular Surgery. Blood cultures were obtained, Vancomycin and Zosyn were given. Admission was requested to continue the workup. Oct 22, Pt went to OR this AM with Dr. Silva for debridement. No calcaneal fracture was noted. MRI of the foot is consistent with calcaneal osteo. Bone Bx and Cx obtained in the OR. Tele ID consult ordered. Will need Abx plan. Unable to obtain MR Angio with runoff to assess LE vascular supply due to ESRD. 3/ Patient had surgical I&D with bone biopsies done yesterday. Anemia present and mildly worsened from yesterday. Trend. Awaiting surgical cultures. Patient will need catheter placed at [facility]. Hyponatremia noted. 3 Undergoing dialysis today. Lost IV access. Will discuss with nephrology. No overnight event or new complaints. Hemoglobin stable. Awaiting surgical cultures. Review of Systems: denies headache/fever/chills/nausea/vomiting/chest or abdominal pain/cough/dyspnea/diarrhea. Otherwise see above. PHYSICAL EXAM: General: Alert, Awake, No acute Distress Eyes/N/T: EOMI, no scleral icterus, Head/Neck: neck supple, full ROM, CV: RRR, 2/6SM Pulm: Clear b/l, no wheezing/rhonchi/rales, no respiratory distress Abd: soft, nontender, +BS x4 Ext: no clubbing/cyanosis, LLE mild edema, Left heel in dressings as well as right foot in dressings Neuro: Alert, no focal deficits, moves all extremities, Psychiatric: Skin: warm/dry, normal color Constitutional Vitals: Vital Signs Temp Pulse Resp BP Pulse Ox O2 Del Method O2 Flow Rate 97.4 F 80 20 150/75 94 Room Air 0 10/24/22 07:14 10/24/22 04:26 10/24/22 07:14 10/24/22 07:14 10/24/22 07:14 10/24/22 07:14 10/23/22 19:55 Period Temp Pulse Resp BP Sys/Toro Pulse Ox O2 Del Method O2 Flow Rate Last 24 Hr 95 F-98.1 F 69-80 14-20 83-150/53-97 93-95 Room Air-Room Air 0 Intake and Output 10/23/22 10/24/22 10/24/22 19:59 03:59 11:59 Intake Total 1239 300 Output Total 2600 450 Balance -1361 -150 Weight 98.033 kg Intake & Output: Intake & Output 10/23/22 10/24/22 10/24/22 19:59 03:59 11:59 Intake Total 1239 300 Output Total 2600 450 Balance -1361 -150 Weight 98.033 kg Intake: IV 279 Zosyn 2.25 gm In Dextrose 5% in 50 Water 50 ml @ 100 mls/hr IV Q8H [facility] Rx#:[id number] Vancomycin 1,500 mg In Sodium 229 Chloride 0.9% 500 ml @ 333.3 mls/hr IV ONCE ONE Rx#: [id number] Oral 960 300 Output: Void Amount 450 Hemodialysis UF 2600 Other: Meal Dinner Percent of Meal Consumed 25% OBJ DATA Labs 10/24/22 05:49 10/24/22 05:24 Labs: Abnormal Lab Results 10/24/22 10/24/22 10/23/22 05:49 05:24 05:20 RBC 2.96 L Hgb 8.9 L Hct 33.3 L MCV 112.5 H MCHC 26.7 L RDW 17.7 H Immature Gran % (Auto) 0.8 H RBC Morphology Polychromasia Anisocytosis ESR Sodium 130 L 130 L Chloride 93 L 91 L BUN 37 H 58 H Creatinine 3.9 H 5.7 H* Glucose 136 H 203 H Albumin 3.0 L Albumin/Globulin Ratio 0.8 L Procalcitonin 10/23/22 10/22/22 10/21/22 05:20 05:55 07:20 RBC 2.44 L 2.72 L Hgb 7.2 L 7.9 L Hct 23.9 L 26.8 L MCV MCHC 30.1 L 29.5 L RDW 17.2 H 17.3 H Immature Gran % (Auto) 0.6 H RBC Morphology Abnormal A Polychromasia Few A Anisocytosis 1+ A ESR Sodium Chloride BUN Creatinine Glucose Albumin Albumin/Globulin Ratio Procalcitonin 0.34 H 10/21/22 10/20/22 07:20 07:28 RBC 2.55 L Hgb 7.6 L Hct 24.5 L MCV MCHC RDW 17.2 H Immature Gran % (Auto) RBC Morphology Polychromasia Anisocytosis ESR > 130 H Sodium Chloride BUN 78 H Creatinine 6.3 H* Glucose Albumin Albumin/Globulin Ratio Procalcitonin Meds: Medications Apixaban (Apixaban 5 Mg Tablet) 2.5 mg PO BID [facility] Last Admin: 10/24/22 08:13 Dose: 2.5 mg Captopril (Captopril 12.5 Mg Tablet) 25 mg PO BID [facility] Last Admin: 10/24/22 08:12 Dose: 25 mg Dextrose (Dextrose 50% 50 Ml Vial) 0 ml IV UD PRN PRN Reason: Per Sliding Scale Diagnostic Test (Pha) (Accu-Chek 1 Each Strip) 1 each FS ACHS [facility] Last Admin: 10/24/22 07:30 Dose: 1 each Diphenhydramine HCl (Diphenhydramine 25 Mg Capsule) 25 mg PO Q4HP PRN PRN Reason: Allergic Symptoms Last Admin: 10/24/22 08:20 Dose: 25 mg Duloxetine HCl (Duloxetine 30 Mg Capsule) 120 mg PO DAILY [facility] Last Admin: 10/24/22 08:11 Dose: 120 mg Furosemide (Furosemide 40 Mg Tablet) 40 mg PO BID [facility] Last Admin: 10/24/22 08:11 Dose: 40 mg Glucose (Dextrose 31 Gm Oral.Susp) 15 gm PO PRN PRN PRN Reason: Hypoglycemia Hydromorphone HCl (Hydromorphone 1 Mg/Ml Syringe) 1 mg IV Q2HP PRN; Protocol PRN Reason: Per Pain Protocol Last Admin: 10/23/22 17:27 Dose: 1 mg Hydromorphone HCl (Hydromorphone 2 Mg Tablet) 4 mg PO Q4HP PRN PRN Reason: Pain Last Admin: 10/24/22 08:12 Dose: 4 mg Piperacillin Sod/Tazobactam (Sod 2.25 gm/ Dextrose) 50 mls @ 100 mls/hr IV Q8H [facility]; Protocol Last Admin: 10/24/22 06:24 Dose: Not Given Vancomycin HCl 500 mg/ Sodium (Chloride) 100 mls @ 100 mls/hr IV ONCE [facility] Stop: 10/24/22 17:00 Insulin Glargine (Insulin Glargine, Human 1 Unit/0.01 Ml) 20 unit SQ BID [facility] Last Admin: 10/24/22 08:12 Dose: 20 unit Insulin Human Lispro (Insulin Lispro 1 Unit/0.01 Ml Unit) 0 unit SQ ACHS [facility]; Protocol Last Admin: 10/24/22 07:33 Dose: 2 units Levothyroxine Sodium (Levothyroxine 75 Mcg Tablet) 75 mcg PO QDAY [facility] Last Admin: 10/24/22 08:11 Dose: 75 mcg Omeprazole (Omeprazole 20 Mg Capsule) 20 mg PO QHS [facility] Last Admin: 10/23/22 20:54 Dose: 20 mg Promethazine HCl (Promethazine 25 Mg Tablet) 50 mg PO Q6HP PRN PRN Reason: Nausea And Vomiting Sevelamer Carbonate (Sevelamer 800 Mg Tablet) 800 mg PO TIDCC [facility] Last Admin: 10/24/22 08:11 Dose: 800 mg Sodium Chloride (0.9 % Sodium Chloride 10 Ml Syringe) 10 ml IV Q8 [facility] Last Admin: 10/24/22 04:56 Dose: Not Given Vancomycin HCl (Vancomycin Per Pharmacy) 1 order IV UD [facility]; Protocol A/P Narrative A/P Narrative: A: #Osteomyelitis Left heel: s/p I&D (10/22) #Chronic diabetic foot wounds: #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 Foster pending surgical cx's -IV access -abx per ID> cont vanc/zosyn for now, abx duration for 2-months, pending surgical cx's -Nephrology following for inpatient hemodialysis, PICC to be placed at [facility] upon d/c -basal (increased)and SSI -Eliquis 2.5 mg twice daily. -Home amlodipine, carvedilol, Lasix, Abilify, duloxetine, methylphenidate, omeprazole, sevelamer. -Case management following to assist with logistics for IV abx upon d/c -Follow up with podiatry after discharge -DVT prophylaxis: On Eliquis Plan of Treatment: Plan: Change dressings tomorrow. Offloading scooter for LEFT foot. [employer] off loading shoe RIGHT foot. Wound care f/u 1 week after discharge. Time Spent With Patient Time: Total time spent is greater than 50% in coordination of care (as documented) at patient's floor/unit and/or counseling patient: Subsequent: Total time with patient: 35 - 49 minutes QUALITY VTE Deep Vein Thrombosis/Pulmonary Embolism Present on Admission: No
--- NOTE | 2022-10-24 08:48 | Nephrology Progress Note ---
SUBJECTIVE Subjective Patient information: Note initiated : 10/24/22 at 8:46 am Patient: Paige Lemos 52 y/o F admitted on 10/21/22 for Debridement Left Posterior Heel, Pulse Lavage. Chief Complaint: Left heel ulcer Pertinent ROS: Weakness Left heel ulcer Constitutional Vitals: Vital Signs Temp Pulse Resp BP Pulse Ox O2 Del Method O2 Flow Rate 97.4 F 80 20 150/75 94 Room Air 0 10/24/22 07:14 10/24/22 04:26 10/24/22 07:14 10/24/22 07:14 10/24/22 07:14 10/24/22 07:14 10/23/22 19:55 Period Temp Pulse Resp BP Sys/Toro Pulse Ox O2 Del Method O2 Flow Rate Last 24 Hr 95 F-98.1 F 69-80 14-20 83-150/53-97 93-95 Room Air-Room Air 0 Intake and Output 10/23/22 10/24/22 10/24/22 19:59 03:59 11:59 Intake Total 1239 300 Output Total 2600 450 Balance -1361 -150 Weight 216 lb 2 oz Intake & Output: Intake & Output 10/23/22 10/24/22 10/24/22 19:59 03:59 11:59 Intake Total 1239 300 Output Total 2600 450 Balance -1361 -150 Weight 216 lb 2 oz Intake: IV 279 Zosyn 2.25 gm In Dextrose 5% in 50 Water 50 ml @ 100 mls/hr IV Q8H [facility] Rx#:[id number] Vancomycin 1,500 mg In Sodium 229 Chloride 0.9% 500 ml @ 333.3 mls/hr IV ONCE ONE Rx#: [id number] Oral 960 300 Output: Void Amount 450 Hemodialysis UF 2600 Other: Meal Dinner Percent of Meal Consumed 25% General appearance: cooperative and no acute distress Head Head exam: Present normal inspection Eye Eye exam: Present normal appearance ENT ENT exam: Present mucous membranes moist Respiratory Respiratory exam: Absent respiratory distress Cardiovascular Cardiovascular exam: Present normal rate and rhythm GI/Abdominal GI/Abdominal exam: Present soft; Absent tenderness Extremities Exam Extremities exam: Absent joint swelling or pedal edema Neurological Exam Neurological exam: Present alert and oriented X3 Psychiatric Psychiatric exam: Present normal affect and normal mood Skin Skin exam: Present warm; Absent rash A/P Assessment and plan (1) ESRD on hemodialysis: Assessment and plan: Paige Lemos is a 52-year-old female with end stage renal disease on home hemodialysis, chronic anemia due to ESRD, hypertension, diabetes mellitus type 1, peripheral neuropathy, macular degeneration with blindness, pulmonary embolism on Apixaban, sent to ED from the wound clinic on 10/20/22 for non healing left calcaneus diabetic foot ulcer. Nephrology consultation was requested for end stage renal disease. End stage renal disease on home hemodialysis. Chronic anemia due to ESRD, receiving Aranesp at the home dialysis clinic. Hyponatremia, associated with ESRD, managed with hemodialysis. Left calcaneal non healing diabetic foot ulcer with left posterior inferior calcaneus fracture, suspected peripheral vascular disease and osteomyelitis. MRI left foot on 10/21/22: Abnormal signal in the calcaneus consistent with osteomyelitis in the right clinical setting. ESR on 10/21/22: >130. Excision debridement of left posterior calcaneus ulcer, bone biopsy and culture, excision of right foot plantar anterior lateral border site callus on 10/22/22. Bone biopsy report: Acute on chronic osteomyelitis with patchy necrosis. ID consult on 10/22/22. Vanco and Zosyn IV recommended for 2 months until bone biopsy culture results. Progress: Hemodialysis on 10/21/22: F250, 4 hours, QB 400, QD 800, Dialysate (2K, CO2 35, Na 138), UF: 2-3 kg Hemodialysis on 10/23/22: F250, 3 hours, QB 400, QD 800, Dialysate (3K, CO2 35, Na 138), UF: 2.6 kg Duplex US bilateral upper extremities on 10/23/22: Normal exam. No evidence of thrombus in either upper extremity. Recommendations/Plan: Hemodialysis today. the patient seen and evaluated during hemodialysis. Vancomycin 500 mg IV at the last hour of hemodialysis recommended. Discharge planning: Home discharge. Central picc placement at [facility] as outpatient after discharge if IV antibiotics will be given at [facility] Day surgery. If outpatient IV antibiotics will be given at home, she will not need a picc. ID recommendations: Daptomycin 8 mg/kg IV after each hemodialysis, hold statin when she is on dapto. Cefepime 2 g IV after each hemodialysis OR Ertapenem 1 g IV after each hemodialysis. Flagyl 500 mg PO 3 times a day for 2 to 3 weeks. Status: Chronic Narrative Plan of Treatment: 52-year-old female patient with multiple medical issues ESRD on hemodialysis Vasculopath Left calcaneal osteomyelitis Status post debridement Bone sample is positive for acute on chronic osteo Microbiology negative On Vanco and Zosyn Cultures are negative so far Recommendations: At the time of discharge, we can simplify the antibiotics to IV daptomycin 8 mg/kg after each hemodialysis She gets dialyzed every other day we should hold statin when she is on dapto We can also leave her on IV cefepime 2 g after each hemodialysis OR The other option will be IV ertapenem 1 g after each hemodialysis She can get oral Flagyl 500 mg 3 times a day for 2 to 3 weeks She gets a weekly CBC, CMP and Cpk Fever, rash, myelosuppression,'s rhabdo, interstitial hepatitis, seizures, encephalopathy etc. will be the few side effects She needs sugar control, offloading, wound care etc. ID will sign off Please consult us if need be . Time Spent With Patient Time: Total time spent is greater than 50% in coordination of care (as documented) at patient's floor/unit and/or counseling patient:
[2022-10-24] MEDS: HYDROmorphone 1 MG/ML SYRINGE IV PRN ×6 (09:40→23:48)
--- NOTE | 2022-10-24 09:53 | Infectious Disease Consult ---
HPI Date of Consult Consult Date: 10/24/22 Primary Care Provider: Bridger Benites MD Consult Narrative cc:: ID is following this patient for left heel osteomyelitis She is s/p debridement Bone pathology is positive for acute on chronic osteo She was on Doxy for 2 months before going to the operating room She is afebrile and she is getting dialyzed today She is lost her IV access So far microbiology is benign No fevers, chills, rigors, night sweats No diarrhea from the antibiotics CC: Antolin Jacob MD Review of Systems All systems: reviewed and no additional remarkable complaints except as stated PFSH PFSH All Active Problems Calcaneus fracture, left (Acute) Osteomyelitis (Acute) ESRD (end stage renal disease) (Acute) Type 2 diabetes mellitus treated with insulin (Acute) Medicare annual wellness visit, initial (Acute) Apnea (Chronic) Blindness of one eye (Chronic) Cataract (Chronic) Chronic pain (Chronic) Diabetes mellitus with renal manifestation (Chronic) Hypothyroidism (Chronic) History of kidney stones (Chronic) prison current use of insulin (Chronic) Lumbar disc disease (Chronic) Microhematuria (Chronic) Nephrolithiasis (Chronic 12/09/12) Overweight (Chronic 12/09/12) Peripheral neuropathy (Chronic 12/09/12) Polyneuropathy in diabetes (Chronic) Proteinuria (Chronic) Diabetic retinopathy associated with diabetes mellitus due to underlying condition (Chronic) SOB (shortness of breath) (Chronic) MRSA (methicillin resistant Staphylococcus aureus) (Chronic) Vitamin D deficiency (Chronic 01/18/13) Hypertensive renal disease (Chronic) Secondary hyperparathyroidism of renal origin (Chronic) Low back pain (Chronic) Hypertension, essential, benign (Chronic) Right bundle branch block (RBBB) determined by electrocardiography (Chronic) Gastroparesis (Chronic) Chronic narcotic use (Chronic) At risk for allergic reaction to medication (Chronic) ESRD on hemodialysis (Chronic) Anemia due to end stage renal disease (Chronic ~12/09/12) Cervical mass (Chronic) Celiac artery stenosis (Chronic) Abdominal pain (Chronic) UTI (urinary tract infection) (Chronic) Hyperlipidemia (Chronic) RUQ abdominal pain (Chronic) Arterial obstructive disease (Chronic) Macular degeneration (Chronic) History of stroke (Chronic) Anxiety disorder (Chronic) Depression (Chronic) Sleep apnea (Chronic) Muscle pain (Chronic) Muscle weakness (Chronic) Kidney cyst, acquired (Chronic) Hematuria (Chronic) SMAS (superior mesenteric artery syndrome) (Chronic) Renal disease (Chronic) Hypoglycemia unawareness associated with type 1 diabetes mellitus (Acute) Diabetic infection of right foot (Acute) V-tach (Acute) Type 1 diabetes mellitus with end-stage renal disease (Acute) Median arcuate ligament syndrome (Acute) Internal jugular (IJ) vein thromboembolism, acute (Acute) Foot ulcer (Acute) ESRD (end stage renal disease) on dialysis (Chronic) Complication of arteriovenous dialysis fistula (Acute) Dialysis complication (Acute) Hypotension of hemodialysis (Acute) Diabetic foot ulcer with osteomyelitis (Chronic) Mesenteric artery syndrome (superior) (Acute) Pulmonary embolus (Acute) Atypical chest pain (Acute) Acute flank pain (Acute) Acute abdominal pain (Acute) Episodic ataxia with slurred speech (Acute) Medical History Abdominal pain Abdominal pain Abnormal weight gain Acidosis Anemia due to end stage renal disease (~12/09/12) As above Anxiety disorder Apnea Arterial obstructive disease At risk for allergic reaction to medication dystonic reactions to Reglan (metoclopramide), Compazine (prochlorperazine) and Inapsine (droperidol) Bleeding pseudoaneurysm of left brachiocephalic AV fistula Blindness of one eye left Calf pain Cataract Celiac artery stenosis Cervical mass Chest pain Chest pain Chronic narcotic use for neuropathy; Dr. Shyam Harper, [place] Pain Chronic pain Complications, dialysis, catheter, mechanical Constipation Cystitis Depression Diabetes mellitus with renal manifestation Diabetic retinopathy associated with diabetes mellitus due to underlying condition DM (diabetes mellitus), type 1 with neurological complications Dyspnea Edema of lower extremity pitted, severity estimated LT: 1+ and RT: 2+ ESRD on hemodialysis Flank pain Fluid overload Foot ulcer Fracture, foot Gastroparesis History of kidney stones History of stroke X 2 Hyperkalemia Hyperlipidemia Hypertension, essential, benign Hypertensive renal disease BP near goal, good BP readings at home ct current meds follow low sodium diet will follow and optimize if elevated next visit Hypothyroidism 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 Low back pain hx of laser disk Lumbar disc disease Macular degeneration Medicare annual wellness visit, initial Microhematuria MRSA (methicillin resistant Staphylococcus aureus) abscess 2007 Muscle pain Muscle weakness Nephrolithiasis (12/09/12) Nephropathy Orthopnea Overweight (12/09/12) Palpitation Pelvic pain Peripheral neuropathy (12/09/12) Pneumonia Polyneuropathy in diabetes Proteinuria Pulmonary embolus Pyelonephritis Renal disease END STAGE Retinal detachment Right bundle branch block (RBBB) determined by electrocardiography RUQ abdominal pain Secondary hyperparathyroidism of renal origin PTH improved from 133 to 65 phos is normal calcium is at upper limit of normal ct renvela and cholecalciferol will monitor and optimize meds if needed Sepsis Urosepsis was noted in chart note. Shoulder pain Sleep apnea SOB (shortness of breath) Staphylococcus aureus bacteremia UTI (lower urinary tract infection) UTI (urinary tract infection) UTI (urinary tract infection) UTI (urinary tract infection) Vision changes Vitamin D deficiency (01/18/13) Vitreous hemorrhage Vomiting Weakness Weakness of right lower extremity Surgical History History of appendectomy History of arthroscopy of right shoulder History of section History of cholecystectomy History of foot surgery History of hysterectomy with oophorectomy History of shoulder surgery Right shoulder. History of surgery Celiac Plexus Block Lt. L1 w/sed 10/27/2018 S/P arteriovenous (AV) fistula creation (02/10/18) Family History Father Cerebral infarction Essential hypertension Mother Type 1 diabetes mellitus Social History household members: significant other lives independently: Yes marital status: other details: engaged occupational status: disabled physical activity: none smoking status: Never smoker alcohol intake frequency: former alcohol drinker substance use type: does not use seatbelt use: always MEDS/ALLERGIES Home Medications and Allergies Home Medications Medication Instructions Recorded Confirmed Type docusate sodium 100 mg capsule 100 mg PO DAILYP PRN Constipation 12/05/1909/25 History (Colace) clobetasol 0.05 % scalp solution 1 applic topical QDAY PRN Itching 03/20/20 10/21/22 History diphenhydramine HCl 25 mg capsule 25 - 75 mg PO Q6H PRN Allergy 03/20/20 History (Benadryl) Symptoms omeprazole 20 mg capsule,delayed 20 mg PO QHS 06/26/21 10/21/22 History release doxycycline hyclate 100 mg tablet 100 mg PO QDAY 02/10/22 10/21/22 History apixaban 2.5 mg tablet 2.5 mg PO BID Left IJ thrombosis 03/31/22 10/21/22 Rx (not completly occluding vessel #60 tabs insulin lispro 100 unit/mL 10 unit (0.1 mL) subcut TID #15 mL 05/22/22 10/21/22 Rx subcutaneous pen (Humalog KwikPen (U-100) Insulin) ondansetron 4 mg disintegrating 4 mg PO Q4H PRN for 05/22/22 10/21/22 Rx tablet nausea/vomiting #30 tabs duloxetine 60 mg capsule,delayed 120 mg PO QDAY #180 caps 06/10/22 10/21/22 Rx release levothyroxine 75 mcg tablet 75 mcg PO QDAY #90 tabs 08/19/22 10/21/22 Rx aripiprazole 15 mg tablet 15 mg PO QHS #30 tabs 09/15/22 10/21/22 Rx captopril 25 mg tablet 25 mg PO Q12H HTN #60 tabs 10/14/22 10/21/22 Rx sevelamer carbonate 800 mg tablet 800 mg PO TIDCC high phosphorous 10/14/22 10/21/22 Rx #180 tabs promethazine 50 mg tablet 50 mg PO Q6H PRN nausea and 10/17/22 10/21/22 Rx vomiting #120 tabs insulin glargine 100 unit/mL (3 10 unit subcut QAM 10/21/22 10/21/22 History mL) subcutaneous pen insulin glargine 100 unit/mL (3 20 unit subcut QPM 10/21/22 10/21/22 History mL) subcutaneous pen hydromorphone 4 mg tablet 4 - 8 mg PO Q4HP PRN pain 10/23/22 10/23/22 History Allergies Allergy/AdvReac Type Severity Reaction Status Date / Time aspirin Allergy Severe Anaphylaxis Verified 10/20/22 12:59 gabapentin Allergy Severe Anaphylaxis Verified 10/20/22 12:59 honey Allergy Severe Anaphylaxis Verified 10/20/22 12:59 metoclopramide Allergy Severe Anaphylaxis Verified 10/20/22 12:59 prochlorperazine Allergy Severe Anaphylaxis Verified 10/20/22 12:59 sumatriptan Allergy Severe Anaphylaxis Verified 10/20/22 12:59 tiagabine [From Gabitril] Allergy Severe Anaphylaxis Verified 10/20/22 12:59 adhesive Allergy Mild Blister Verified 10/20/22 12:59 ceftriaxone [From Rocephin] Allergy Mild Hives Verified 10/20/22 12:59 Penicillins Allergy Mild Hives Verified 10/20/22 12:59 topiramate [From Topamax] Allergy Mild Rash Verified 10/20/22 12:59 droperidol [From INAPSINE] AdvReac Severe Seizure Verified 10/20/22 12:59 ketamine AdvReac Intermediate Anxiety Verified 10/20/22 12:59 hydroxyzine AdvReac Mild Confusion Verified 10/20/22 12:59 morphine AdvReac Mild Blister Verified 10/20/22 12:59 Physical Examination Vital Signs Vital signs: Temp Pulse Resp BP Pulse Ox O2 Del Method O2 Flow Rate 97 F 88 20 130/71 94 Room Air 0 10/24/22 08:40 10/24/22 09:28 10/24/22 07:14 10/24/22 09:28 10/24/22 07:14 10/24/22 07:14 10/23/22 19:55 Constitutional General appearance: no acute distress EENT Eyes pulmonary: nonicteric Respiratory Effort: normal Auscultation: right: clear Cardiovascular Cardiovascular: regular rate and rhythm Gastrointestinal Gastrointestinal: normoactive bowel sounds Results Laboratory Findings 10/24/22 05:49 10/24/22 05:24 Abnormal lab findings: Abnormal Labs 10/20/22 10/20/22 10/20/22 07:28 14:23 14:23 RBC 2.55 L Hgb 7.6 L Hct 24.5 L POC Hct MCV MCHC RDW 17.2 H Immature Gran % (Auto) RBC Morphology Polychromasia Anisocytosis ESR > 130 H POC Sodium Sodium 131 L POC Potassium Potassium 5.5 H Chloride 91 L POC BUN BUN 72 H Creatinine 5.5 H* POC Creatinine Glucose POC Glucose POC WB Ioniz Calcium Phosphorus 6.1 H* C-Reactive Protein 3.90 H Albumin Albumin/Globulin Ratio Procalcitonin 10/20/22 10/21/22 10/21/22 14:28 07:20 07:20 RBC Hgb Hct POC Hct 27.0 L MCV MCHC RDW Immature Gran % (Auto) RBC Morphology Polychromasia Anisocytosis ESR POC Sodium 131 L Sodium POC Potassium 5.2 H Potassium Chloride POC BUN 82 H BUN 78 H Creatinine 6.3 H* POC Creatinine 7.4 H* Glucose POC Glucose 115 H POC WB Ioniz Calcium 1.13 L Phosphorus C-Reactive Protein Albumin Albumin/Globulin Ratio Procalcitonin 0.34 H 10/22/22 10/23/22 10/23/22 05:55 05:20 05:20 RBC 2.72 L 2.44 L Hgb 7.9 L 7.2 L Hct 26.8 L 23.9 L POC Hct MCV MCHC 29.5 L 30.1 L RDW 17.3 H 17.2 H Immature Gran % (Auto) 0.6 H RBC Morphology Abnormal A Polychromasia Few A Anisocytosis 1+ A ESR POC Sodium Sodium 130 L POC Potassium Potassium Chloride 91 L POC BUN BUN 58 H Creatinine 5.7 H* POC Creatinine Glucose 203 H POC Glucose POC WB Ioniz Calcium Phosphorus C-Reactive Protein Albumin 3.0 L Albumin/Globulin Ratio 0.8 L Procalcitonin 10/24/22 10/24/22 05:24 05:49 RBC 2.96 L Hgb 8.9 L Hct 33.3 L POC Hct MCV 112.5 H MCHC 26.7 L RDW 17.7 H Immature Gran % (Auto) 0.8 H RBC Morphology Polychromasia Anisocytosis ESR POC Sodium Sodium 130 L POC Potassium Potassium Chloride 93 L POC BUN BUN 37 H Creatinine 3.9 H POC Creatinine Glucose 136 H POC Glucose POC WB Ioniz Calcium Phosphorus C-Reactive Protein Albumin Albumin/Globulin Ratio Procalcitonin Microbiology: Microbiology 10/22/22 08:25 Wound - Not Given Gram Stain - Preliminary 10/20/22 07:20 Blood Blood Culture - Preliminary 10/20/22 07:15 Blood Blood Culture - Preliminary A/P Narrative Plan of Treatment: 52-year-old female patient with multiple medical issues ESRD on hemodialysis Vasculopath Left calcaneal osteomyelitis Status post debridement Bone sample is positive for acute on chronic osteo Microbiology negative On Vanco and Zosyn Cultures are negative so far Recommendations: At the time of discharge, we can simplify the antibiotics to IV daptomycin 8 mg/kg after each hemodialysis She gets dialyzed every other day we should hold statin when she is on dapto We can also leave her on IV cefepime 2 g after each hemodialysis OR The other option will be IV ertapenem 1 g after each hemodialysis She can get oral Flagyl 500 mg 3 times a day for 2 to 3 weeks She gets a weekly CBC, CMP and Cpk Fever, rash, myelosuppression,'s rhabdo, interstitial hepatitis, seizures, encephalopathy etc. will be the few side effects She needs sugar control, offloading, wound care etc. ID will sign off Please consult us if need be . Time Spent With Patient Time: Total time spent is greater than 50% in coordination of care (as documented) at patient's floor/unit and/or counseling patient:
[2022-10-24] MEDS ORDERED: 0.45 % SODIUM CHLORIDE 1,000 ML IV SCH (14:00)
--- NOTE | 2022-10-24 14:00 | General Surgery Progress Note ---
SUBJECTIVE Subjective Patient information: Note initiated : 10/24/22 at 1:48 pm Service Date, if different from initiated Date: [] Patient: Paige Lemos 52 y/o F admitted on 10/21/22 for Debridement Left Posterior Heel, Pulse Lavage. Chief Complaint: [] Additional PMFSH (Level 3 Only): I saw patient along with Memo Kan [facility]. Patient had completed her hemodialysis today. Reviewed input from Nephrology and Infectious Diseases. Primary dressings changed. Constitutional Vitals: Vital Signs Temp Pulse Resp BP Pulse Ox O2 Del Method O2 Flow Rate 97.3 F 88 16 100/63 99 Room Air 0 10/24/22 12:00 10/24/22 11:37 10/24/22 12:00 10/24/22 12:00 10/24/22 12:00 10/24/22 12:00 10/23/22 19:55 Period Temp Pulse Resp BP Sys/Toro Pulse Ox O2 Del Method O2 Flow Rate Last 24 Hr 96.2 F-98.1 F 72-88 14-20 91-167/58-97 93-99 Room Air-Room Air 0 Intake and Output 10/24/22 10/24/22 10/24/22 03:59 11:59 19:59 Intake Total 400 290 Output Total 3620 Balance -3220 290 Weight 216 lb 2 oz Intake & Output: Intake & Output 10/24/22 10/24/22 10/24/22 03:59 11:59 19:59 Intake Total 400 290 Output Total 3620 Balance -3220 290 Weight 216 lb 2 oz Intake: IV 100 50 Zosyn 2.25 gm In Dextrose 5% in 50 Water 50 ml @ 100 mls/hr IV Q8H GIANNA Rx#:[id number] Vancomycin 500 mg In Sodium 100 Chloride 0.9% 100 ml @ 100 mls/ hr IV ONCE GIANNA Rx#:[id number] Oral 300 240 Output: Void Amount 450 Hemodialysis UF 3170 Other: Meal Lunch Percent of Meal Consumed 100% Feeding Ability Independent Exam: AVSS. No changes LUANA. Hemodialysis completed uneventfully. Primary dressings taken down. RIGHT anterior / lateral plantar DFU site callus was excised on 10/22/2022 Wound site is clean and dry. LEFT posterior heel wound site was examined after packing was removed. Point bleeding from exposed skin edge was controlled with silver nitrate cautery. Final pathology from bone biopsy is positive for acute on chronic osteomyelitis. ID recommendations for antibiotics noted and appreciated. A/P Narrative A/P Narrative: Assessment: Satisfactory progress from surgery point of view. Plan of Treatment: Plan: Local wound care plan: RIGHT foot callus site. Skin moisturizing or repair creme, Mepilex, ROSINA and offloading Darco shoe. For LEFT foot posterior heel Clean with VASHE. Opened gauze over wound site treated with Silvasorb . Secure with ABD pad, ROSINA bandage. X 2 a week. If d/c f/u at wound care clinic in ONE weeks time. Telephone order given to Jing RUANO and Memo Kan RN. 52-year-old female patient with multiple medical issues ESRD on hemodialysis Vasculopath Left calcaneal osteomyelitis Status post debridement Bone sample is positive for acute on chronic osteo Microbiology negative On Vanco and Zosyn Cultures are negative so far Recommendations: At the time of discharge, we can simplify the antibiotics to IV daptomycin 8 mg/kg after each hemodialysis She gets dialyzed every other day we should hold statin when she is on dapto We can also leave her on IV cefepime 2 g after each hemodialysis OR The other option will be IV ertapenem 1 g after each hemodialysis She can get oral Flagyl 500 mg 3 times a day for 2 to 3 weeks She gets a weekly CBC, CMP and Cpk Fever, rash, myelosuppression,'s rhabdo, interstitial hepatitis, seizures, encephalopathy etc. will be the few side effects She needs sugar control, offloading, wound care etc. ID will sign off Please consult us if need be . Time Spent With Patient Time: Total time spent is greater than 50% in coordination of care (as documented) at patient's floor/unit and/or counseling patient:
[2022-10-24] MEDS: ARIPIPRAZOLE 5 MG TABLET PO SCH (20:41)
[2022-10-24] MEDS: OMEPRAZOLE 20 MG CAPSULE PO SCH (20:42)
[2022-10-25] MEDS: HYDROmorphone 1 MG/ML SYRINGE IV PRN ×5 (03:46→21:19)
[2022-10-25] MEDS: PIPERACILLIN SODIUM/TAZOBACTAM 2.25 GM in DEXTROSE 5% IN WATER 50 ML IV SCH ×3 (05:48→21:20)
[2022-10-25] MEDS: 0.9 % SODIUM CHLORIDE 10 ML SYRINGE IV SCH ×3 (05:55→21:12)
--- NOTE | 2022-10-25 07:06 | Nephrology Progress Note ---
SUBJECTIVE Subjective Patient information: Note initiated : 10/25/22 at 7:04 am Patient: Paige Lemos 52 y/o F admitted on 10/21/22 for Debridement Left Posterior Heel, Pulse Lavage. Chief Complaint: Left heel ulcer Pertinent ROS: Left heel ulcer Constitutional Vitals: Vital Signs Temp Pulse Resp BP Pulse Ox O2 Del Method O2 Flow Rate 97.6 F 79 16 107/61 93 Room Air 0 10/25/22 04:00 10/25/22 04:00 10/25/22 04:00 10/25/22 04:00 10/25/22 04:00 10/25/22 04:00 10/23/22 19:55 Period Temp Pulse Resp BP Sys/Toro Pulse Ox O2 Del Method O2 Flow Rate Last 24 Hr 97 F-97.6 F 79-88 16-20 91-167/53-75 93-100 Room Air-Room Air Intake and Output 10/24/22 10/25/22 10/25/22 19:59 03:59 11:59 Intake Total 527 850 250 Output Total 200 Balance 327 850 250 Weight 213 lb 12.8 oz Intake & Output: Intake & Output 10/24/22 10/25/22 10/25/22 19:59 03:59 11:59 Intake Total 527 850 250 Output Total 200 Balance 327 850 250 Weight 213 lb 12.8 oz Intake: IV 87 50 50 Sodium Chloride 0.45% 1,000 ml 37 @ 50 mls/hr IV .Q20H GIANNA Rx#: [id number] Zosyn 2.25 gm In Dextrose 5% in 50 50 50 Water 50 ml @ 100 mls/hr IV Q8H GIANNA Rx#:[id number] Oral 440 800 200 Output: Void Amount 200 Other: Meal Dinner Percent of Meal Consumed 95 Feeding Ability Independent Urine Appearance Clear Urine Color Yellow Pale Urine Odor Normal Stool Size Small Stool Color Brown Stool Consistency Loose # Bowel Movements 1 2 General appearance: cooperative and no acute distress Head Head exam: Present normal inspection Eye Eye exam: Present normal appearance ENT ENT exam: Present mucous membranes moist Respiratory Respiratory exam: Absent respiratory distress Cardiovascular Cardiovascular exam: Present normal rate and rhythm GI/Abdominal GI/Abdominal exam: Present soft; Absent tenderness Extremities Exam Extremities exam: Absent joint swelling or pedal edema Neurological Exam Neurological exam: Present alert and oriented X3 Psychiatric Psychiatric exam: Present normal affect and normal mood Skin Skin exam: Present warm; Absent rash A/P Assessment and plan (1) ESRD on hemodialysis: Assessment and plan: Paige Lemos is a 52-year-old female with end stage renal disease on home hemodialysis, chronic anemia due to ESRD, hypertension, diabetes mellitus type 1, peripheral neuropathy, macular degeneration with blindness, pulmonary embolism on Apixaban, sent to ED from the wound clinic on 10/20/22 for non healing left calcaneus diabetic foot ulcer. Nephrology consultation was requested for end stage renal disease. End stage renal disease on home hemodialysis. Chronic anemia due to ESRD, receiving Aranesp at the home dialysis clinic. Hyponatremia, associated with ESRD, managed with hemodialysis. Left calcaneal non healing diabetic foot ulcer with left posterior inferior calcaneus fracture, suspected peripheral vascular disease and osteomyelitis. MRI left foot on 10/21/22: Abnormal signal in the calcaneus consistent with osteomyelitis in the right clinical setting. ESR on 10/21/22: >130. Excision debridement of left posterior calcaneus ulcer, bone biopsy and culture, excision of right foot plantar anterior lateral border site callus on 10/22/22. Bone biopsy report: Acute on chronic osteomyelitis with patchy necrosis. ID consult on 10/22/22. Vanco and Zosyn IV recommended for 2 months until bone biopsy culture results. Progress: Hemodialysis on 10/21/22: F250, 4 hours, QB 400, QD 800, Dialysate (2K, CO2 35, Na 138), UF: 3,000 ml Hemodialysis on 10/23/22: F250, 3 hours, QB 400, QD 800, Dialysate (3K, CO2 35, Na 138), UF: 2,600 ml Hemodialysis on 10/24/22: F250, 3 hours, QB 400, QD 800, Dialysate (3K, CO2 35, Na 138), UF: 3,170 ml Duplex US bilateral upper extremities on 10/23/22: Normal exam. No evidence of thrombus in either upper extremity. Recommendations/Plan: Next hemodialysis on Thursday. Discharge planning: Home discharge. Central picc placement at [facility] as outpatient after discharge if IV antibiotics will be given at [facility] Day surgery. If outpatient IV antibiotics will be given at home, she will not need a picc. ID recommendations: Daptomycin 8 mg/kg IV after each hemodialysis, hold statin when she is on dapto. Cefepime 2 g IV after each hemodialysis OR Ertapenem 1 g IV after each hemodialysis. Flagyl 500 mg PO 3 times a day for 2 to 3 weeks. Status: Chronic Narrative Plan of Treatment: Plan: Local wound care plan: RIGHT foot callus site. Skin moisturizing or repair creme, Mepilex, ROSINA and offloading Darco shoe. For LEFT foot posterior heel Clean with VASHE. Opened gauze over wound site treated with Silvasorb . Secure with ABD pad, ROSINA bandage. X 2 a week. If d/c f/u at wound care clinic in ONE weeks time. Telephone order given to Jing RUANO and Memo Kan RN. 52-year-old female patient with multiple medical issues ESRD on hemodialysis Vasculopath Left calcaneal osteomyelitis Status post debridement Bone sample is positive for acute on chronic osteo Microbiology negative On Vanco and Zosyn Cultures are negative so far Recommendations: At the time of discharge, we can simplify the antibiotics to IV daptomycin 8 mg/kg after each hemodialysis She gets dialyzed every other day we should hold statin when she is on dapto We can also leave her on IV cefepime 2 g after each hemodialysis OR The other option will be IV ertapenem 1 g after each hemodialysis She can get oral Flagyl 500 mg 3 times a day for 2 to 3 weeks She gets a weekly CBC, CMP and Cpk Fever, rash, myelosuppression,'s rhabdo, interstitial hepatitis, seizures, encephalopathy etc. will be the few side effects She needs sugar control, offloading, wound care etc. ID will sign off Please consult us if need be . Time Spent With Patient Time: Total time spent is greater than 50% in coordination of care (as documented) at patient's floor/unit and/or counseling patient:
[2022-10-25] MEDS: HYDROmorphone 2 MG TABLET PO PRN ×3 (07:07→18:59)
[2022-10-25] MEDS: INSULIN LISPRO 1 UNIT/0.01 ML UNIT SQ SCH ×4 (07:11→21:10)
--- NOTE | 2022-10-25 08:33 | Internal Med Progress Note ---
SUBJECTIVE Subjective Patient information: Note initiated : 10/25/22 at 8:29 am Service Date, if different from initiated Date: [] Patient: Paige Lemos a 52 y/o F admitted on 10/21/22 for Debridement Left Posterior Heel, Pulse Lavage. Chief Complaint: [] Interval history: HPI: Ms. 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 She has a history of multiple toe amputations from right foot with poorly healing wound for which she has received extensive recent hyperbaric oxygen treatment. She has now in the last several weeks developed a left heel wound that has opened and now has exposed bone. Her wound care physician referred her to the ER for further evaluation and management. Workup in the ER is notable for obvious foot wound with bone, CT of the foot notes a calcaneal fracture communicating with soft tissue infection. Arterial Duplex studies of the legs note patent left leg arteries but the right notes greater than 50% stenosis in mid and distal SFA as well as multiple greater than 50% stenosis in the anterior, peroneal and posterior tibial arteries. The Radiologist suggests CT abominal aortogram with run-off or MR equivalent. ER made made many attempts to facilitate transfer to a tertiary center with the ability to perform HD and also with Vascular Surgery and Podiatry available but have thus far been unsuccessful in securing transfer to a facility with these capabilities. Pt understands she is being admitted to a faclity without Podiatry or Vascular Surgery. Blood cultures were obtained, Vancomycin and Zosyn were given. Admission was requested to continue the workup. Oct 22, Pt went to OR this AM with Dr. Silva for debridement. No calcaneal fracture was noted. MRI of the foot is consistent with calcaneal osteo. Bone Bx and Cx obtained in the OR. Tele ID consult ordered. Will need Abx plan. Unable to obtain MR Angio with runoff to assess LE vascular supply due to ESRD. 3/ Patient had surgical I&D with bone biopsies done yesterday. Anemia present and mildly worsened from yesterday. Trend. Awaiting surgical cultures. Patient will need catheter placed at [facility]. Hyponatremia noted. 3 Undergoing dialysis today. Lost IV access. Will discuss with nephrology. No overnight event or new complaints. Hemoglobin stable. Awaiting surgical cultures. 3/4 Patient complains of diarrhea since last night and blames the antibiotics. No new fevers or chills. IV antibiotics per nephrology and infectious disease. Awaiting surgical cultures. Continue dressing changes per wound care. Review of Systems: denies headache/fever/chills/nausea/vomiting/chest or abdominal pain/cough/dyspnea. Otherwise see above. PHYSICAL EXAM: General: Alert, Awake, No acute Distress Eyes/N/T: EOMI, no scleral icterus, Head/Neck: neck supple, full ROM, CV: RRR, 2/6SM Pulm: Clear b/l, no wheezing/rhonchi/rales, no respiratory distress Abd: soft, nontender, +BS x4 Ext: no clubbing/cyanosis, LLE mild edema, Left heel in dressings as well as right foot in dressings Neuro: Alert, no focal deficits, moves all extremities, Psychiatric: Skin: warm/dry, normal color Constitutional Vitals: Vital Signs Temp Pulse Resp BP Pulse Ox O2 Del Method O2 Flow Rate 97.3 F 78 16 164/71 100 Room Air 0 10/25/22 07:11 10/25/22 07:11 10/25/22 07:11 10/25/22 07:11 10/25/22 07:11 10/25/22 07:11 10/23/22 19:55 Period Temp Pulse Resp BP Sys/Toro Pulse Ox O2 Del Method O2 Flow Rate Last 24 Hr 97 F-97.6 F 78-88 16-20 91-167/53-74 93-100 Room Air-Room Air Intake and Output 10/24/22 10/25/22 10/25/22 19:59 03:59 11:59 Intake Total 527 850 250 Output Total 200 Balance 327 850 250 Weight 96.978 kg Intake & Output: Intake & Output 10/24/22 10/25/22 10/25/22 19:59 03:59 11:59 Intake Total 527 850 250 Output Total 200 Balance 327 850 250 Weight 96.978 kg Intake: IV 87 50 50 Sodium Chloride 0.45% 1,000 ml 37 @ 50 mls/hr IV .Q20H [facility] Rx#: [id number] Zosyn 2.25 gm In Dextrose 5% in 50 50 50 Water 50 ml @ 100 mls/hr IV Q8H [facility] Rx#:[id number] Oral 440 800 200 Output: Void Amount 200 Other: Meal Dinner Percent of Meal Consumed 95 Feeding Ability Independent Urine Appearance Clear Urine Color Yellow Pale Urine Odor Normal Stool Size Small Stool Color Brown Stool Consistency Loose # Bowel Movements 1 2 OBJ DATA Labs 10/24/22 05:49 10/24/22 05:24 Labs: Abnormal Lab Results 10/24/22 10/24/22 10/23/22 05:49 05:24 05:20 RBC 2.96 L Hgb 8.9 L Hct 33.3 L MCV 112.5 H MCHC 26.7 L RDW 17.7 H Immature Gran % (Auto) 0.8 H RBC Morphology Polychromasia Anisocytosis Sodium 130 L 130 L Chloride 93 L 91 L BUN 37 H 58 H Creatinine 3.9 H 5.7 H* Glucose 136 H 203 H Albumin 3.0 L Albumin/Globulin Ratio 0.8 L 10/23/22 05:20 RBC 2.44 L Hgb 7.2 L Hct 23.9 L MCV MCHC 30.1 L RDW 17.2 H Immature Gran % (Auto) RBC Morphology Abnormal A Polychromasia Few A Anisocytosis 1+ A Sodium Chloride BUN Creatinine Glucose Albumin Albumin/Globulin Ratio Meds: Medications Apixaban (Apixaban 5 Mg Tablet) 2.5 mg PO BID [facility] Last Admin: 10/24/22 20:42 Dose: 2.5 mg Captopril (Captopril 12.5 Mg Tablet) 25 mg PO BID [facility] Last Admin: 10/24/22 20:48 Dose: 25 mg Dextrose (Dextrose 50% 50 Ml Vial) 0 ml IV UD PRN PRN Reason: Per Sliding Scale Diagnostic Test (Pha) (Accu-Chek 1 Each Strip) 1 each FS ACHS [facility] Last Admin: 10/25/22 07:10 Dose: 1 each Diphenhydramine HCl (Diphenhydramine 25 Mg Capsule) 25 mg PO Q4HP PRN PRN Reason: Allergic Symptoms Last Admin: 10/24/22 08:20 Dose: 25 mg Duloxetine HCl (Duloxetine 30 Mg Capsule) 120 mg PO DAILY [facility] Last Admin: 10/24/22 08:11 Dose: 120 mg Furosemide (Furosemide 40 Mg Tablet) 40 mg PO BID [facility] Last Admin: 10/24/22 20:41 Dose: 40 mg Glucose (Dextrose 31 Gm Oral.Susp) 15 gm PO PRN PRN PRN Reason: Hypoglycemia Hydromorphone HCl (Hydromorphone 1 Mg/Ml Syringe) 1 mg IV Q2HP PRN; Protocol PRN Reason: Per Pain Protocol Last Admin: 10/25/22 03:46 Dose: 1 mg Hydromorphone HCl (Hydromorphone 2 Mg Tablet) 4 mg PO Q4HP PRN PRN Reason: Pain Last Admin: 10/25/22 07:07 Dose: 4 mg Piperacillin Sod/Tazobactam (Sod 2.25 gm/ Dextrose) 50 mls @ 100 mls/hr IV Q8H [facility]; Protocol Last Infusion: 10/25/22 06:28 Dose: Infused Insulin Glargine (Insulin Glargine, Human 1 Unit/0.01 Ml) 20 unit SQ BID [facility] Last Admin: 10/24/22 20:42 Dose: 20 unit Insulin Human Lispro (Insulin Lispro 1 Unit/0.01 Ml Unit) 0 unit SQ ACHS [facility]; Protocol Last Admin: 10/25/22 07:11 Dose: Not Given Levothyroxine Sodium (Levothyroxine 75 Mcg Tablet) 75 mcg PO QDAY [facility] Last Admin: 10/24/22 08:11 Dose: 75 mcg Omeprazole (Omeprazole 20 Mg Capsule) 20 mg PO QHS [facility] Last Admin: 10/24/22 20:42 Dose: 20 mg Promethazine HCl (Promethazine 25 Mg Tablet) 50 mg PO Q6HP PRN PRN Reason: Nausea And Vomiting Sevelamer Carbonate (Sevelamer 800 Mg Tablet) 800 mg PO TIDCC [facility] Last Admin: 10/24/22 17:35 Dose: 800 mg Sodium Chloride (0.9 % Sodium Chloride 10 Ml Syringe) 10 ml IV Q8 [facility] Last Admin: 10/25/22 05:55 Dose: Not Given Vancomycin HCl (Vancomycin Per Pharmacy) 1 order IV UD [facility]; Protocol A/P Narrative A/P Narrative: A: #Osteomyelitis Left heel: s/p I&D (10/22) #Chronic diabetic foot wounds: #DM complicated by retinopathy and ESRD: #Hyponatremia, chronic: #PVD: RLE #ESRD: on hemodialysis #Anemia, chronic: #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 Foster pending surgical cx's -abx per ID> Dapto/cefepime or ertapenem/flagyl(for 2-3wks ), abx duration for 2-months, pending surgical cx's -Nephrology following for inpatient hemodialysis, PICC or Port to be placed at [facility] upon d/c -basal (increased)and SSI -Eliquis 2.5 mg twice daily. -Home amlodipine, carvedilol, Lasix, Abilify, duloxetine, methylphenidate, omeprazole, sevelamer. -Case management following to assist with logistics for IV abx upon d/c -Follow up with podiatry after discharge -DVT prophylaxis: On Eliquis Plan of Treatment: Plan: Local wound care plan: RIGHT foot callus site. Skin moisturizing or repair creme, Mepilex, ROSINA and offloading Darco shoe. For LEFT foot posterior heel Clean with VASHE. Opened gauze over wound site treated with Silvasorb . Secure with ABD pad, ROSINA bandage. X 2 a week. If d/c f/u at wound care clinic in ONE weeks time. Telephone order given to Jing RUANO and Memo Kan RN. 52-year-old female patient with multiple medical issues ESRD on hemodialysis Vasculopath Left calcaneal osteomyelitis Status post debridement Bone sample is positive for acute on chronic osteo Microbiology negative On Vanco and Zosyn Cultures are negative so far Recommendations: At the time of discharge, we can simplify the antibiotics to IV daptomycin 8 mg/kg after each hemodialysis She gets dialyzed every other day we should hold statin when she is on dapto We can also leave her on IV cefepime 2 g after each hemodialysis OR The other option will be IV ertapenem 1 g after each hemodialysis She can get oral Flagyl 500 mg 3 times a day for 2 to 3 weeks She gets a weekly CBC, CMP and Cpk Fever, rash, myelosuppression,'s rhabdo, interstitial hepatitis, seizures, encephalopathy etc. will be the few side effects She needs sugar control, offloading, wound care etc. ID will sign off Please consult us if need be . Time Spent With Patient Time: Total time spent is greater than 50% in coordination of care (as documented) at patient's floor/unit and/or counseling patient: Subsequent: Total time with patient: 35 - 49 minutes QUALITY VTE Deep Vein Thrombosis/Pulmonary Embolism Present on Admission: No
[2022-10-25] MEDS: APIXABAN 5 MG TABLET PO SCH ×2 (08:39→21:09)
[2022-10-25] MEDS: SEVELAMER 800 MG TABLET PO SCH ×3 (08:39→17:12)
[2022-10-25] MEDS: DULoxetine 30 MG CAPSULE PO SCH (08:39)
[2022-10-25] MEDS: CAPTOPRIL 12.5 MG TABLET PO SCH ×2 (08:40→21:09)
[2022-10-25] MEDS: LEVOTHYROXINE 75 MCG TABLET PO SCH (08:40)
[2022-10-25] MEDS: FUROSEMIDE 40 MG TABLET PO SCH ×2 (08:40→21:09)
[2022-10-25] MEDS: INSULIN GLARGINE, HUMAN 1 UNIT/0.01 ML SQ SCH ×2 (08:40→21:10)
[2022-10-25] MEDS ORDERED: LOPERAMIDE 2 MG CAPSULE PO SCH (10:00)
[2022-10-25] MEDS ORDERED: LOPERAMIDE 2 MG CAPSULE PO PRN (10:00)
[2022-10-25] MEDS: ARIPIPRAZOLE 5 MG TABLET PO SCH (21:07)
[2022-10-25] MEDS: OMEPRAZOLE 20 MG CAPSULE PO SCH (21:09)
[2022-10-26] MEDS: diphenhydrAMINE 25 MG CAPSULE PO PRN
[2022-10-26] MEDS: HYDROmorphone 1 MG/ML SYRINGE IV PRN ×9 (02:27→22:37)
[2022-10-26] MEDS: HYDROmorphone 2 MG TABLET PO PRN ×4 (04:22→23:51)
[2022-10-26] MEDS: 0.9 % SODIUM CHLORIDE 10 ML SYRINGE IV SCH ×3 (05:30→20:34)
[2022-10-26] MEDS: PIPERACILLIN SODIUM/TAZOBACTAM 2.25 GM in DEXTROSE 5% IN WATER 50 ML IV SCH ×3 (05:31→22:01)
[2022-10-26] MEDS: SEVELAMER 800 MG TABLET PO SCH ×3 (07:16→17:05)
[2022-10-26] MEDS: INSULIN LISPRO 1 UNIT/0.01 ML UNIT SQ SCH ×4 (07:28→20:28)
--- NOTE | 2022-10-26 09:09 | Internal Med Progress Note ---
SUBJECTIVE Subjective Patient information: Note initiated : 10/26/22 at 9:07 am Service Date, if different from initiated Date: [] Patient: Paige Lemos a 52 y/o F admitted on 10/21/22 for Debridement Left Posterior Heel, Pulse Lavage. Chief Complaint: [] Interval history: HPI: Ms. 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 She has a history of multiple toe amputations from right foot with poorly healing wound for which she has received extensive recent hyperbaric oxygen treatment. She has now in the last several weeks developed a left heel wound that has opened and now has exposed bone. Her wound care physician referred her to the ER for further evaluation and management. Workup in the ER is notable for obvious foot wound with bone, CT of the foot notes a calcaneal fracture communicating with soft tissue infection. Arterial Duplex studies of the legs note patent left leg arteries but the right notes greater than 50% stenosis in mid and distal SFA as well as multiple greater than 50% stenosis in the anterior, peroneal and posterior tibial arteries. The Radiologist suggests CT abominal aortogram with run-off or MR equivalent. ER made made many attempts to facilitate transfer to a tertiary center with the ability to perform HD and also with Vascular Surgery and Podiatry available but have thus far been unsuccessful in securing transfer to a facility with these capabilities. Pt understands she is being admitted to a faclity without Podiatry or Vascular Surgery. Blood cultures were obtained, Vancomycin and Zosyn were given. Admission was requested to continue the workup. Oct 22, Pt went to OR this AM with Dr. Silva for debridement. No calcaneal fracture was noted. MRI of the foot is consistent with calcaneal osteo. Bone Bx and Cx obtained in the OR. Tele ID consult ordered. Will need Abx plan. Unable to obtain MR Angio with runoff to assess LE vascular supply due to ESRD. 3/ Patient had surgical I&D with bone biopsies done yesterday. Anemia present and mildly worsened from yesterday. Trend. Awaiting surgical cultures. Patient will need catheter placed at [facility]. Hyponatremia noted. 3 Undergoing dialysis today. Lost IV access. Will discuss with nephrology. No overnight event or new complaints. Hemoglobin stable. Awaiting surgical cultures. 10/25 Patient complains of diarrhea since last night and blames the antibiotics. No new fevers or chills. IV antibiotics per nephrology and infectious disease. Awaiting surgical cultures. Continue dressing changes per wound care. 10/26 No overnight event or new complaints. Still awaiting surgical cultures. Patient we have dialysis tomorrow Review of Systems: denies headache/fever/chills/nausea/vomiting/chest or abdominal pain/cough/dysp yonathan. Otherwise see above. PHYSICAL EXAM: General: Alert, Awake, No acute Distress Eyes/N/T: EOMI, no scleral icterus, Head/Neck: neck supple, full ROM, CV: RRR, 2/6SM Pulm: Clear b/l, no wheezing/rhonchi/rales, no respiratory distress Abd: soft, nontender, +BS x4 Ext: no clubbing/cyanosis, LLE mild edema, Left heel in dressings as well as right foot in dressings Neuro: Alert, no focal deficits, moves all extremities, Psychiatric: Skin: warm/dry, normal color Constitutional Vitals: Vital Signs Temp Pulse Resp BP Pulse Ox O2 Del Method O2 Flow Rate 97.9 F 74 16 160/71 97 Room Air 0 10/26/22 07:23 10/26/22 07:23 10/26/22 07:23 10/26/22 07:23 10/26/22 07:23 10/26/22 07:23 10/23/22 19:55 Period Temp Pulse Resp BP Sys/Toro Pulse Ox O2 Del Method O2 Flow Rate Last 24 Hr 97.4 F-98.2 F 72-85 16-18 132-172/63-75 94-98 Room Air-Room Air Intake and Output 10/25/22 10/26/22 10/26/22 19:59 03:59 11:59 Intake Total 1969 50 850 Output Total 100 Balance 1969 50 750 Weight 96.434 kg Intake & Output: Intake & Output 10/25/22 10/26/22 10/26/22 19:59 03:59 11:59 Intake Total 1969 50 850 Output Total 100 Balance 1969 50 750 Weight 96.434 kg Intake: Nourishment/Supplement quantity 200 (ml) IV 50 50 50 Zosyn 2.25 gm In Dextrose 5% in 50 50 50 Water 50 ml @ 100 mls/hr IV Q8H [facility] Rx#:[id number] Oral 1240 800 GI Tube Flush 480 Output: Void Amount 100 Other: Meal Dinner Percent of Meal Consumed 90 Feeding Ability Independent Nourishment/Supplement name Arginine Urine Appearance Clear Urine Color Yellow Stool Consistency Loose # Voids 2 # Bowel Movements 1 2 OBJ DATA Labs 10/24/22 05:49 10/24/22 05:24 Labs: Abnormal Lab Results 10/24/22 10/24/22 10/23/22 05:49 05:24 05:20 RBC 2.96 L Hgb 8.9 L Hct 33.3 L MCV 112.5 H MCHC 26.7 L RDW 17.7 H Immature Gran % (Auto) 0.8 H RBC Morphology Abnormal A Polychromasia Few A Anisocytosis 1+ A Sodium 130 L Chloride 93 L BUN 37 H Creatinine 3.9 H Glucose 136 H Meds: Medications Apixaban (Apixaban 5 Mg Tablet) 2.5 mg PO BID [facility] Last Admin: 10/25/22 21:09 Dose: 2.5 mg Captopril (Captopril 12.5 Mg Tablet) 25 mg PO BID [facility] Last Admin: 10/25/22 21:09 Dose: 25 mg Dextrose (Dextrose 50% 50 Ml Vial) 0 ml IV UD PRN PRN Reason: Per Sliding Scale Diagnostic Test (Pha) (Accu-Chek 1 Each Strip) 1 each FS ACHS [facility] Last Admin: 10/26/22 07:27 Dose: 1 each Diphenhydramine HCl (Diphenhydramine 25 Mg Capsule) 25 mg PO Q4HP PRN PRN Reason: Allergic Symptoms Last Admin: 10/26/22 00:00 Dose: 25 mg Duloxetine HCl (Duloxetine 30 Mg Capsule) 120 mg PO DAILY [facility] Last Admin: 10/25/22 08:39 Dose: 120 mg Furosemide (Furosemide 40 Mg Tablet) 40 mg PO BID [facility] Last Admin: 10/25/22 21:09 Dose: 40 mg Glucose (Dextrose 31 Gm Oral.Susp) 15 gm PO PRN PRN PRN Reason: Hypoglycemia Hydromorphone HCl (Hydromorphone 1 Mg/Ml Syringe) 1 mg IV Q2HP PRN; Protocol PRN Reason: Per Pain Protocol Last Admin: 10/26/22 07:16 Dose: 1 mg Hydromorphone HCl (Hydromorphone 2 Mg Tablet) 4 mg PO Q4HP PRN PRN Reason: Pain Last Admin: 10/26/22 04:22 Dose: 4 mg Piperacillin Sod/Tazobactam (Sod 2.25 gm/ Dextrose) 50 mls @ 100 mls/hr IV Q8H [facility]; Protocol Last Infusion: 10/26/22 06:05 Dose: Infused Insulin Glargine (Insulin Glargine, Human 1 Unit/0.01 Ml) 20 unit SQ BID [facility] Last Admin: 10/25/22 21:10 Dose: 20 unit Insulin Human Lispro (Insulin Lispro 1 Unit/0.01 Ml Unit) 0 unit SQ ACHS [facility]; Protocol Last Admin: 10/26/22 07:28 Dose: Not Given Levothyroxine Sodium (Levothyroxine 75 Mcg Tablet) 75 mcg PO QDAY [facility] Last Admin: 10/25/22 08:40 Dose: 75 mcg Loperamide HCl (Loperamide 2 Mg Capsule) 2 mg PO PRN PRN PRN Reason: Diarrhea Omeprazole (Omeprazole 20 Mg Capsule) 20 mg PO QHS [facility] Last Admin: 10/25/22 21:09 Dose: 20 mg Promethazine HCl (Promethazine 25 Mg Tablet) 50 mg PO Q6HP PRN PRN Reason: Nausea And Vomiting Sevelamer Carbonate (Sevelamer 800 Mg Tablet) 800 mg PO TIDCC [facility] Last Admin: 10/26/22 07:16 Dose: 800 mg Sodium Chloride (0.9 % Sodium Chloride 10 Ml Syringe) 10 ml IV Q8 [facility] Last Admin: 10/26/22 05:30 Dose: 10 ml Vancomycin HCl (Vancomycin Per Pharmacy) 1 order IV UD [facility]; Protocol A/P Narrative A/P Narrative: A: #Osteomyelitis Left heel: s/p I&D (10/22) #Chronic diabetic foot wounds: #DM complicated by retinopathy and ESRD: #Hyponatremia, chronic: #PVD: RLE #ESRD: on hemodialysis #Anemia, chronic: #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 Foster pending surgical cx's -abx per ID> Dapto/cefepime or ertapenem/flagyl(for 2-3wks ), abx duration for 2-months, pending surgical cx's -Nephrology following for inpatient hemodialysis, PICC or Port to be placed at [facility] upon d/c -basal and SSI -Eliquis 2.5 mg twice daily. -Home amlodipine, carvedilol, Lasix, Abilify, duloxetine, methylphenidate, omeprazole, sevelamer. -Case management following to assist with logistics for IV abx upon d/c -Follow up with podiatry after discharge -DVT prophylaxis: On Eliquis Plan of Treatment: Plan: Local wound care plan: RIGHT foot callus site. Skin moisturizing or repair creme, Mepilex, ROSINA and offloading Darco shoe. For LEFT foot posterior heel Clean with VASHE. Opened gauze over wound site treated with Silvasorb . Secure with ABD pad, ROSINA bandage. X 2 a week. If d/c f/u at wound care clinic in ONE weeks time. Telephone order given to Jing RUANO and Memo Kan RN. 52-year-old female patient with multiple medical issues ESRD on hemodialysis Vasculopath Left calcaneal osteomyelitis Status post debridement Bone sample is positive for acute on chronic osteo Microbiology negative On Vanco and Zosyn Cultures are negative so far Recommendations: At the time of discharge, we can simplify the antibiotics to IV daptomycin 8 mg/kg after each hemodialysis She gets dialyzed every other day we should hold statin when she is on dapto We can also leave her on IV cefepime 2 g after each hemodialysis OR The other option will be IV ertapenem 1 g after each hemodialysis She can get oral Flagyl 500 mg 3 times a day for 2 to 3 weeks She gets a weekly CBC, CMP and Cpk Fever, rash, myelosuppression,'s rhabdo, interstitial hepatitis, seizures, encephalopathy etc. will be the few side effects She needs sugar control, offloading, wound care etc. ID will sign off Please consult us if need be . Time Spent With Patient Time: Total time spent is greater than 50% in coordination of care (as documented) at patient's floor/unit and/or counseling patient: Subsequent: Total time with patient: 35 - 49 minutes QUALITY VTE Deep Vein Thrombosis/Pulmonary Embolism Present on Admission: No
[2022-10-26] MEDS: APIXABAN 5 MG TABLET PO SCH ×2 (09:31→20:27)
[2022-10-26] MEDS: LEVOTHYROXINE 75 MCG TABLET PO SCH (09:31)
[2022-10-26] MEDS: CAPTOPRIL 12.5 MG TABLET PO SCH ×2 (09:32→20:27)
[2022-10-26] MEDS: DULoxetine 30 MG CAPSULE PO SCH (09:32)
[2022-10-26] MEDS: FUROSEMIDE 40 MG TABLET PO SCH ×2 (09:32→20:27)
[2022-10-26] MEDS: INSULIN GLARGINE, HUMAN 1 UNIT/0.01 ML SQ SCH ×2 (09:36→20:29)
--- NOTE | 2022-10-26 11:14 | Nephrology Progress Note ---
SUBJECTIVE Subjective Patient information: Note initiated : 10/26/22 at 11:13 am Service Date, if different from initiated Date: [] Patient: Paige Lemos 52 y/o F admitted on 10/21/22 for Debridement Left Posterior Heel, Pulse Lavage. 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 Patient has been seeing Dr. Puentes for several months. The wound has been nonhealing. She is doing hyperbaric oxygen therapy. She has not been on antibiotics. Patient takes 4 mg of Dilaudid every 4-6 hours for her median cruciate ligament syndrome. She complains of severe left heel and foot pain, notes that the Dilaudid is not really helpful for this. She has been walking on the foot. She also has a wound that is slowly healing to the right foot status post lateral toe amputation. The patient has had 30 hyperbaric chamber treatments for her chronic right foot wound. ID Teleconsult: Consult Narrative cc:: ID is following this patient for left heel osteomyelitis She is s/p debridement Bone pathology is positive for acute on chronic osteo She was on Doxy for 2 months before going to the operating room She is afebrile and she is getting dialyzed today She is lost her IV access So far microbiology is benign No fevers, chills, rigors, night sweats No diarrhea from the antibiotics At the time of discharge, we can simplify the antibiotics to IV daptomycin 8 mg/kg after each hemodialysis She gets dialyzed every other day we should hold statin when she is on dapto We can also leave her on IV cefepime 2 g after each hemodialysis OR The other option will be IV ertapenem 1 g after each hemodialysis She can get oral Flagyl 500 mg 3 times a day for 2 to 3 weeks She gets a weekly CBC, CMP and Cpk Fever, rash, myelosuppression,'s rhabdo, interstitial hepatitis, seizures, encephalopathy etc. will be the few side effects She needs sugar control, offloading, wound care etc. ID will sign off Please consult us if need be My concern was the prior IJ thrombus, she has been on NOAC for ~ 1 year and now upper extrmity doppler of venous system is free of clot. So options are home ABX with home health / outpatient ABx per [facility] that could be given at conclusion of HD by her as these are not paid for by the Home HD care reimbusment but would be possible w/o a PICC to spare right arm for future axxess as Picc lines are the devel's tool in dialysis patient hemo access and should be avoided at all cost. Alternatively, a picc line is the last resort and puts at risk her future livelyhood on HD as she will never get a transplant. Pertinent ROS: While undergoing slow health of right foot, she developed an ulcer due to DM, +/- vascular disease and weight transfer to Left heal due to off loading of right foot. 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 Currently ID suggesting Daptomycin 8 mg/kg and Cefepime 2gm IV post HD and metronidazole 500 mg po TID x 3 weeks. Constitutional Vitals: Vital Signs Temp Pulse Resp BP Pulse Ox O2 Del Method O2 Flow Rate 36.6 C 74 16 160/71 97 Room Air 0 10/26/22 07:23 10/26/22 07:23 10/26/22 07:23 10/26/22 07:23 10/26/22 07:23 10/26/22 07:23 10/23/22 19:55 Period Temp Pulse Resp BP Sys/Toro Pulse Ox O2 Del Method O2 Flow Rate Last 24 Hr 36.3 C-36.8 C 72-85 16-18 132-172/63-75 94-98 Room Air-Room Air Intake and Output 10/25/22 10/26/22 10/26/22 19:59 03:59 11:59 Intake Total 1969 50 1090 Output Total 100 Balance 1969 50 990 Weight 96.434 kg Intake & Output: Intake & Output 10/25/22 10/26/22 10/26/22 19:59 03:59 11:59 Intake Total 1969 50 1090 Output Total 100 Balance 1969 50 990 Weight 96.434 kg Intake: Nourishment/Supplement quantity 200 (ml) IV 50 50 50 Zosyn 2.25 gm In Dextrose 5% in 50 50 50 Water 50 ml @ 100 mls/hr IV Q8H [facility] Rx#:[id number] Oral 1240 800 GI Tube Flush 480 240 Output: Void Amount 100 Other: Meal Dinner Breakfast Percent of Meal Consumed 90 100% Feeding Ability Independent Independent Nourishment/Supplement name Arginine Urine Appearance Clear Urine Color Yellow Stool Consistency Loose # Voids 2 # Bowel Movements 1 2 General appearance: obese Head Head exam: Present normal inspection Eye Eye exam: Absent EOMI, PERRL or scleral icterus Pupils: Present unequal Additional comments: opacified lens Respiratory Respiratory exam: Present CTAB Cardiovascular Cardiovascular exam: Present RRR, +S1 and +S2 GI/Abdominal GI/Abdominal exam: Present normal bowel sounds Extremities Exam Additional comments: Right foot wrapped and charcot deformity Left foot wrapped, less with less deformity Neurological Exam Neurological exam: Present alert and oriented X3 Additional comments: nonfocal Sensory neuropathy Psychiatric Psychiatric exam: Present anxious Skin Skin exam: Present pallor A/P Assessment and plan (1) ESRD (end stage renal disease) on dialysis: Plan: HD MWF while hospitalized Status: Chronic Comment: Q TTHFSun (4 tx per week) is her home HD schedule (2) Internal jugular (IJ) vein thromboembolism, acute: Status: Acute Comment: Found inadvertently at time of left upper arm AVF U/S study Resolved after 1 year of NOAC so can stop (3) Secondary hyperparathyroidism of renal origin: Assessment and plan: Check Ca, PO4 and PTHi Status: Chronic Comment: PTH improved from 133 to 65 phos is normal calcium is at upper limit of normal ct renvela and cholecalciferol will monitor and optimize meds if needed (4) 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 See if [facility] would provide daptomycin and cefepime as ordered by MICHELLE marie. Patient and could give via dialysis extracorporeal circuit post home hemodialysis which is in the late evening well after hours for the homes home health or anyone else is available, avoids the need for a pick line in a HD patient that has had complications in the past with her left AVF and left great veins thrombosis last year and poor veins on the right side for a new AVF if needed, and avoids placement in an LTAC for continued ABx therapy if given by PICC line because she would have to be placed on [facility]ENTER HD if she went to a facility to have IV abx given via a picc line. 2. Labs in AM 3. HD in AM . 4. KELI and calcitriol as indicated along with phosphate minders Plan of Treatment: Plan: Off loading scooter for LEFT foot and leg. Darco shoe for RIGHT foot. Continue rest of ongoing treatment. For dressing changes Thursday10/27/2022 Local wound care plan: RIGHT foot callus site. Skin moisturizing or repair creme, Mepilex, ROSINA and offloading Darco shoe. For LEFT foot posterior heel Clean with VASHE. Opened gauze over wound site treated with Silvasorb . Secure with ABD pad, ROSINA bandage. X 2 a week. If d/c f/u at wound care clinic in ONE weeks time. Telephone order given to Jing RUANO and Memo Kan RN. 52-year-old female patient with multiple medical issues ESRD on hemodialysis Vasculopath Left calcaneal osteomyelitis Status post debridement Bone sample is positive for acute on chronic osteo Microbiology negative On Vanco and Zosyn Cultures are negative so far Recommendations: At the time of discharge, we can simplify the antibiotics to IV daptomycin 8 mg/kg after each hemodialysis She gets dialyzed every other day we should hold statin when she is on dapto We can also leave her on IV cefepime 2 g after each hemodialysis OR The other option will be IV ertapenem 1 g after each hemodialysis She can get oral Flagyl 500 mg 3 times a day for 2 to 3 weeks She gets a weekly CBC, CMP and Cpk Fever, rash, myelosuppression,'s rhabdo, interstitial hepatitis, seizures, encephalopathy etc. will be the few side effects She needs sugar control, offloading, wound care etc. ID will sign off Please consult us if need be . Time Spent With Patient Time: Total time spent is greater than 50% in coordination of care (as documented) at patient's floor/unit and/or counseling patient:
[2022-10-26] MEDS ORDERED: [UNRECOGNIZED DRUG - OTHER] PRN (11:15)
--- NOTE | 2022-10-26 11:28 | General Surgery Progress Note ---
SUBJECTIVE Subjective Patient information: Note initiated : 10/26/22 at 11:19 am Service Date, if different from initiated Date: [] Patient: Paige Lemos 52 y/o F admitted on 10/21/22 for Debridement Left Posterior Heel, Pulse Lavage. Chief Complaint: [] Principal diagnosis: ESRD on HD Additional PMFSH (Level 3 Only): Patient seen with nurse. C/O Pop and Throb pain LEFT foot. SHe is NWB Tried to get OOB. Needs to protect RIGHT foot heel laron bearing only for transfer. Suggest Darco shoe. Constitutional Vitals: Vital Signs Temp Pulse Resp BP Pulse Ox O2 Del Method O2 Flow Rate 98.2 F 77 16 162/72 100 Room Air 0 10/26/22 11:18 10/26/22 11:18 10/26/22 11:18 10/26/22 11:18 10/26/22 11:18 10/26/22 11:18 10/23/22 19:55 Period Temp Pulse Resp BP Sys/Toro Pulse Ox O2 Del Method O2 Flow Rate Last 24 Hr 97.4 F-98.2 F 72-85 16-18 132-172/63-75 94-100 Room Air-Room Air Intake and Output 10/25/22 10/26/22 10/26/22 19:59 03:59 11:59 Intake Total 1969 50 1090 Output Total 100 Balance 1969 50 990 Weight 212 lb 9.6 oz Intake & Output: Intake & Output 10/25/22 10/26/22 10/26/22 19:59 03:59 11:59 Intake Total 1969 50 1090 Output Total 100 Balance 1969 50 990 Weight 212 lb 9.6 oz Intake: Nourishment/Supplement quantity 200 (ml) IV 50 50 50 Zosyn 2.25 gm In Dextrose 5% in 50 50 50 Water 50 ml @ 100 mls/hr IV Q8H [facility] Rx#:[id number] Oral 1240 800 GI Tube Flush 480 240 Output: Void Amount 100 Other: Meal Dinner Breakfast Percent of Meal Consumed 90 100% Feeding Ability Independent Independent Nourishment/Supplement name Arginine Urine Appearance Clear Urine Color Yellow Stool Consistency Loose # Voids 2 # Bowel Movements 1 2 Exam: AVSS. No changes LUANA. Dressings both feet dry and intact. For HD tomorrow. Awaits PICC line for IV antibiotics. On IV Zosyn and Vancomycin LEFT posterior heel bone biopsy Acute / Chronic osteomyelitis Bone c/s awaited. ID consult noted and appreciated. A/P Narrative A/P Narrative: Assessment: Post op: Left posterior heel BONE bx and c/s. Patient has Osteomyelitis LEFT heel. She does NOT have LEFT heel practure. Multiple comorbidities appropriately managed, Plan of Treatment: Plan: Off loading scooter for LEFT foot and leg. Darco shoe for RIGHT foot. Continue rest of ongoing treatment. For dressing changes Thursday10/27/2022 Local wound care plan: RIGHT foot callus site. Skin moisturizing or repair creme, Mepilex, ROSINA and offloading Darco shoe. For LEFT foot posterior heel Clean with VASHE. Opened gauze over wound site treated with Silvasorb . Secure with ABD pad, ROSINA bandage. X 2 a week. If d/c f/u at wound care clinic in ONE weeks time. Telephone order given to Jing RUANO and Memo Kan RN. 52-year-old female patient with multiple medical issues ESRD on hemodialysis Vasculopath Left calcaneal osteomyelitis Status post debridement Bone sample is positive for acute on chronic osteo Microbiology negative On Vanco and Zosyn Cultures are negative so far Recommendations: At the time of discharge, we can simplify the antibiotics to IV daptomycin 8 mg/kg after each hemodialysis She gets dialyzed every other day we should hold statin when she is on dapto We can also leave her on IV cefepime 2 g after each hemodialysis OR The other option will be IV ertapenem 1 g after each hemodialysis She can get oral Flagyl 500 mg 3 times a day for 2 to 3 weeks She gets a weekly CBC, CMP and Cpk Fever, rash, myelosuppression,'s rhabdo, interstitial hepatitis, seizures, encephalopathy etc. will be the few side effects She needs sugar control, offloading, wound care etc. ID will sign off Please consult us if need be . Time Spent With Patient Time: Total time spent is greater than 50% in coordination of care (as documented) at patient's floor/unit and/or counseling patient:
[2022-10-26] MEDS: ARIPIPRAZOLE 5 MG TABLET PO SCH (20:26)
[2022-10-26] MEDS: OMEPRAZOLE 20 MG CAPSULE PO SCH (20:27)
[2022-10-27] MEDS: HYDROmorphone 1 MG/ML SYRINGE IV PRN ×8 (01:42→23:58)
[2022-10-27] MEDS: HYDROmorphone 2 MG TABLET PO PRN ×3 (03:38→22:12)
[2022-10-27] MEDS: PIPERACILLIN SODIUM/TAZOBACTAM 2.25 GM in DEXTROSE 5% IN WATER 50 ML IV SCH ×2 (05:19→16:11)
[2022-10-27] MEDS: 0.9 % SODIUM CHLORIDE 10 ML SYRINGE IV SCH ×3 (05:20→21:21)
[2022-10-27 07:11] LABS: Basophils # (Auto) 0.03 K/mcL (0.00-0.30); Basophils % (Auto) 0.4 % (0.0-2.0); Eosinophils # (Auto) 0.51 K/mcL (0.00-0.70); Eosinophils % (Auto) 6.3 % (0.0-7.0); Hematocrit 24.9 % (34.1-44.9); Hemoglobin 7.3 g/dL (11.2-15.7); Lymphocytes # (Auto) 2.24 K/mcL (1.50-4.80); Lymphocytes % (Auto) 27.8 % (15.5-49.0); Mean Cell Volume 102.5 fL (80.0-100.0); Mean Corpuscular HGB Conc 29.3 g/dL (31.0-36.0); Mean Platelet Volume 8.6 fL (8.8-12.5); Monocytes # (Auto) 0.66 K/mcL (0.10-0.90); Monocytes % (Auto) 8.2 % (1.0-12.0); Neutrophils % (Auto) 57.2 % (38.0-78.0); Platelet Count 365 K/mcL (140-440); RBC 2.43 M/mcL (3.59-5.38); Red Cell Distribution Width 17.2 % (11.5-14.5); WBC 8.1 K/mcL (4.5-11.0)
[2022-10-27] MEDS: SEVELAMER 800 MG TABLET PO SCH ×3 (07:20→17:43)
[2022-10-27] MEDS: INSULIN LISPRO 1 UNIT/0.01 ML UNIT SQ SCH ×4 (07:24→21:28)
[2022-10-27 07:27] LABS: Vancomycin,Random 14.8 ug/mL
[2022-10-27 07:35] LABS: Ferritin 632.3 ng/mL (13.0-150.0)
[2022-10-27 07:40] LABS: Iron 22 ug/dL (37-145); Thyroid Stimulating Hormone 0.24 uIU/mL (0.27-5.01)
[2022-10-27 07:48] LABS: Phosphorous 7.4 mg/dL (2.5-4.5)
[2022-10-27 07:49] LABS: ALT/SGPT < 5 U/L (<40); AST/SGOT 9 U/L (<32); Albumin 2.9 gm/dL (3.2-5.2); Albumin/Globulin Ratio 0.8 (1.0-2.3); Alkaline Phosphatase 40 U/L (39-117); Bilirubin,Total 0.2 mg/dL (0.1-1.0); Blood Urea Nitrogen 60 mg/dL (6-20); Carbon Dioxide 21 mmol/L (22-30); Chloride 93 mmol/L (96-108); Globulin 3.7 gm/dL (2.2-3.7); Glomerular Filtration Rate 7; Glucose 91 mg/dL (70-105)
--- NOTE | 2022-10-27 08:12 | Internal Med Progress Note ---
SUBJECTIVE Subjective Patient information: Note initiated : 10/27/22 at 8:09 am Service Date, if different from initiated Date: [] Patient: Paige Lemos a 52 y/o F admitted on 10/21/22 for Debridement Left Posterior Heel, Pulse Lavage. Chief Complaint: [] Principal diagnosis: ESRD on HD Interval history: HPI: Ms. 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 She has a history of multiple toe amputations from right foot with poorly healing wound for which she has received extensive recent hyperbaric oxygen treatment. She has now in the last several weeks developed a left heel wound that has opened and now has exposed bone. Her wound care physician referred her to the ER for further evaluation and management. Workup in the ER is notable for obvious foot wound with bone, CT of the foot notes a calcaneal fracture communicating with soft tissue infection. Arterial Duplex studies of the legs note patent left leg arteries but the right notes greater than 50% stenosis in mid and distal SFA as well as multiple greater than 50% stenosis in the anterior, peroneal and posterior tibial arteries. The Radiologist suggests CT abominal aortogram with run-off or MR equivalent. ER made made many attempts to facilitate transfer to a tertiary center with the ability to perform HD and also with Vascular Surgery and Podiatry available but have thus far been unsuccessful in securing transfer to a facility with these capabilities. Pt understands she is being admitted to a faclity without Podiatry or Vascular Surgery. Blood cultures were obtained, Vancomycin and Zosyn were given. Admission was requested to continue the workup. Oct 22, Pt went to OR this AM with Dr. Silva for debridement. No calcaneal fracture was noted. MRI of the foot is consistent with calcaneal osteo. Bone Bx and Cx obtained in the OR. Tele ID consult ordered. Will need Abx plan. Unable to obtain MR Angio with runoff to assess LE vascular supply due to ESRD. 3 Patient had surgical I&D with bone biopsies done yesterday. Anemia present and mildly worsened from yesterday. Trend. Awaiting surgical cultures. Patient will need catheter [facility] at [facility]. Hyponatremia noted. 3 Undergoing dialysis today. Lost IV access. Will discuss with nephrology. No overnight event or new complaints. Hemoglobin stable. Awaiting surgical cultures. 10/25 Patient complains of diarrhea since last night and blames the antibiotics. No new fevers or chills. IV antibiotics per nephrology and infectious disease. Awaiting surgical cultures. Continue dressing changes per wound care. 10/26 No overnight event or new complaints. Still awaiting surgical cultures. Patient we have dialysis tomorrow 10/27 Patient states she got up to go the bathroom with a walker and fell on her right foot and heard a pop on the top of her forefoot. Complains of pain. Anemic on labs. Hyponatremia hypochloremia. Surgical wound cultures negative thus far. Patient had been on antibiotics for prior. Review of Systems: denies headache/fever/chills/nausea/vomiting/chest or abdominal pain/cough/dyspnea. Otherwise see above. PHYSICAL EXAM: General: Alert, Awake, No acute Distress Eyes/N/T: EOMI, no scleral icterus, Head/Neck: neck supple, full ROM, CV: RRR, 2/6SM Pulm: Clear b/l, no wheezing/rhonchi/rales, no respiratory distress Abd: soft, nontender, +BS x4 Ext: no clubbing/cyanosis, LLE mild edema, Left heel in dressings as well as right foot in dressings Neuro: Alert, no focal deficits, moves all extremities, Psychiatric: Skin: warm/dry, normal color Constitutional Vitals: Vital Signs Temp Pulse Resp BP Pulse Ox O2 Del Method O2 Flow Rate 98.4 F 82 18 126/61 94 Room Air 0 10/27/22 03:35 10/27/22 03:35 10/27/22 03:35 10/27/22 03:35 10/27/22 03:35 10/27/22 03:35 10/23/22 19:55 Period Temp Pulse Resp BP Sys/Toro Pulse Ox O2 Del Method O2 Flow Rate Last 24 Hr 97.3 F-98.4 F 77-99 16-20 126-167/61-79 94-100 Room Air-Room Air Intake and Output 10/26/22 10/27/22 10/27/22 19:59 03:59 11:59 Intake Total 1250 1290 50 Output Total 400 Balance 850 1290 50 Weight 96.887 kg Intake & Output: Intake & Output 10/26/22 10/27/22 10/27/22 19:59 03:59 11:59 Intake Total 1250 1290 50 Output Total 400 Balance 850 1290 50 Weight 96.887 kg Intake: IV 50 50 50 Zosyn 2.25 gm In Dextrose 5% in 50 50 50 Water 50 ml @ 100 mls/hr IV Q8H [facility] Rx#:[id number] Oral 720 1240 GI Tube Flush 480 Output: Void Amount 400 Other: Meal Dinner Percent of Meal Consumed 100% Feeding Ability Independent Urine Appearance Clear Urine Color Yellow Urine Odor Normal OBJ DATA Labs 10/27/22 06:17 10/27/22 06:17 Labs: Abnormal Lab Results 10/27/22 10/27/22 10/27/22 06:17 06:17 06:17 RBC 2.43 L Hgb 7.3 L Hct 24.9 L MCV 102.5 H MCHC 29.3 L RDW 17.2 H MPV 8.6 L Sodium 130 L Chloride 93 L Carbon Dioxide 21 L BUN 60 H Creatinine 6.7 H* Glucose Phosphorus 7.4 H* Iron 22 L Ferritin 632.3 H C-Reactive Protein 3.70 H Albumin 2.9 L Albumin/Globulin Ratio 0.8 L TSH 0.24 L PTH Intact 69.4 H 10/24/22 05:24 RBC Hgb Hct MCV MCHC RDW MPV Sodium 130 L Chloride 93 L Carbon Dioxide BUN 37 H Creatinine 3.9 H Glucose 136 H Phosphorus Iron Ferritin C-Reactive Protein Albumin Albumin/Globulin Ratio TSH PTH Intact Meds: Medications Apixaban (Apixaban 5 Mg Tablet) 2.5 mg PO BID [facility] Last Admin: 10/26/22 20:27 Dose: 2.5 mg Captopril (Captopril 12.5 Mg Tablet) 25 mg PO BID [facility] Last Admin: 10/26/22 20:27 Dose: 25 mg Dextrose (Dextrose 50% 50 Ml Vial) 0 ml IV UD PRN PRN Reason: Per Sliding Scale Diagnostic Test (Pha) (Accu-Chek 1 Each Strip) 1 each FS ACHS [facility] Last Admin: 10/27/22 07:24 Dose: 1 each Diphenhydramine HCl (Diphenhydramine 25 Mg Capsule) 25 mg PO Q4HP PRN PRN Reason: Allergic Symptoms Last Admin: 10/26/22 00:00 Dose: 25 mg Duloxetine HCl (Duloxetine 30 Mg Capsule) 120 mg PO DAILY [facility] Last Admin: 10/26/22 09:32 Dose: 120 mg Furosemide (Furosemide 40 Mg Tablet) 40 mg PO BID [facility] Last Admin: 10/26/22 20:27 Dose: 40 mg Glucose (Dextrose 31 Gm Oral.Susp) 15 gm PO PRN PRN PRN Reason: Hypoglycemia Hydromorphone HCl (Hydromorphone 1 Mg/Ml Syringe) 1 mg IV Q2HP PRN; Protocol PRN Reason: Per Pain Protocol Last Admin: 10/27/22 07:20 Dose: 1 mg Hydromorphone HCl (Hydromorphone 2 Mg Tablet) 4 mg PO Q4HP PRN PRN Reason: Pain Last Admin: 10/27/22 03:38 Dose: 4 mg Piperacillin Sod/Tazobactam (Sod 2.25 gm/ Dextrose) 50 mls @ 100 mls/hr IV Q8H [facility]; Protocol Last Infusion: 10/27/22 05:49 Dose: Infused Albumin Human (Buminate) 12.5 gm in 50 mls @ 100 mls/hr IV PRN PRN PRN Reason: hypotension on HD Insulin Glargine (Insulin Glargine, Human 1 Unit/0.01 Ml) 15 unit SQ BID [facility] Last Admin: 10/26/22 20:29 Dose: 15 units Insulin Human Lispro (Insulin Lispro 1 Unit/0.01 Ml Unit) 0 unit SQ ACHS [facility]; Protocol Last Admin: 10/27/22 07:24 Dose: Not Given Levothyroxine Sodium (Levothyroxine 75 Mcg Tablet) 75 mcg PO QDAY [facility] Last Admin: 10/26/22 09:31 Dose: 75 mcg Loperamide HCl (Loperamide 2 Mg Capsule) 2 mg PO PRN PRN PRN Reason: Diarrhea Omeprazole (Omeprazole 20 Mg Capsule) 20 mg PO QHS [facility] Last Admin: 10/26/22 20:27 Dose: 20 mg Promethazine HCl (Promethazine 25 Mg Tablet) 50 mg PO Q6HP PRN PRN Reason: Nausea And Vomiting Sevelamer Carbonate (Sevelamer 800 Mg Tablet) 800 mg PO TIDCC [facility] Last Admin: 10/27/22 07:20 Dose: 800 mg Sodium Chloride (0.9 % Sodium Chloride 10 Ml Syringe) 10 ml IV Q8 [facility] Last Admin: 10/27/22 05:20 Dose: 10 ml Vancomycin HCl (Vancomycin Per Pharmacy) 1 order IV UD [facility]; Protocol A/P Narrative A/P Narrative: A: #Osteomyelitis Left heel: s/p I&D (10/22) #Chronic diabetic foot wounds: #DM complicated by retinopathy and ESRD: #Hyponatremia, chronic: #PVD: RLE #ESRD: on hemodialysis #Anemia, chronic: #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 Foster pending surgical cx's -abx per ID> Dapto/cefepime for 2-months, flagyl for 2-3wks -Nephrology following for inpatient hemodialysis, PICC or Port to [facility] placed at [facility] upon d/c -foot xray left -basal and SSI -Eliquis 2.5 mg twice daily. -Home acei, Lasix -Follow up with podiatry after discharge -DVT prophylaxis: On Eliquis / home ppi Plan of Treatment: Plan: Off loading scooter for LEFT foot and leg. Darco shoe for RIGHT foot. Continue rest of ongoing treatment. For dressing changes Thursday10/27/2022 Local wound care plan: RIGHT foot callus site. Skin moisturizing or repair creme, Mepilex, ROSINA and offloading Darco shoe. For LEFT foot posterior heel Clean with VASHE. Opened gauze over wound site treated with Silvasorb . Secure with ABD pad, ROSINA bandage. X 2 a week. If d/c f/u at wound care clinic in ONE weeks time. Telephone order given to Jing RUANO and Memo Kna RN. 52-year-old female patient with multiple medical issues ESRD on hemodialysis Vasculopath Left calcaneal osteomyelitis Status post debridement Bone sample is positive for acute on chronic osteo Microbiology negative On Vanco and Zosyn Cultures are negative so far Recommendations: At the time of discharge, we can simplify the antibiotics to IV daptomycin 8 mg/kg after each hemodialysis She gets dialyzed every other day we should hold statin when she is on dapto We can also leave her on IV cefepime 2 g after each hemodialysis OR The other option will be IV ertapenem 1 g after each hemodialysis She can get oral Flagyl 500 mg 3 times a day for 2 to 3 weeks She gets a weekly CBC, CMP and Cpk Fever, rash, myelosuppression,'s rhabdo, interstitial hepatitis, seizures, encephalopathy etc. will be the few side effects She needs sugar control, offloading, wound care etc. ID will sign off Please consult us if need be . Time Spent With Patient Time: Total time spent is greater than 50% in coordination of care (as documented) at patient's floor/unit and/or counseling patient: Subsequent: Total time with patient: 35 - 49 minutes QUALITY VTE Deep Vein Thrombosis/Pulmonary Embolism Present on Admission: No
[2022-10-27 09:15] LABS: Retic Absolute 0.05 M/mcL (0.02-0.10)
--- NOTE | 2022-10-27 09:22 | XRay Report ---
CLINICAL INFORMATION: Severe pain. Calcaneal surgery one week prior COMPARISON: None FINDINGS: Oblique osteotomy extends through the mid and posterior inferior calcaneus. Delayed Mild separation of fracture fragments-less than 8 mm. Joint spaces are normal in width and alignment. Moderate diffuse soft tissue swelling noted.. IMPRESSION: Oblique osteotomy extending through the mid and posterior inferior calcaneus with 8 mm separation of fragments. Interpreted and Authenticated by: Joe Guevara 10/27/22
--- NOTE | 2022-10-27 09:38 | General Surgery Progress Note ---
SUBJECTIVE Subjective Patient information: Note initiated : 10/27/22 at 9:32 am Service Date, if different from initiated Date: [] Patient: Paige Lemos 52 y/o F admitted on 10/21/22 for Debridement Left Posterior Heel, Pulse Lavage. Chief Complaint: [] Principal diagnosis: ESRD on HD Additional PMFSH (Level 3 Only): 10/27/2022 Patient seen with Marii Stubbs RNfacility maintenance technician Nurse. Patient reports throbbing pain LEFT posterior heel and a sense of pop yesterday. Removed dressings and examined wounds. Constitutional Vitals: Vital Signs Temp Pulse Resp BP Pulse Ox O2 Del Method O2 Flow Rate 98.4 F 86 20 155/62 100 Room Air 0 10/27/22 08:53 10/27/22 08:53 10/27/22 08:53 10/27/22 08:53 10/27/22 08:53 10/27/22 03:35 10/23/22 19:55 Period Temp Pulse Resp BP Sys/Toro Pulse Ox O2 Del Method O2 Flow Rate Last 24 Hr 97.3 F-98.4 F 77-99 16-20 126-167/61-79 94-100 Room Air-Room Air Intake and Output 10/26/22 10/27/22 10/27/22 19:59 03:59 11:59 Intake Total 1250 1290 50 Output Total 400 Balance 850 1290 50 Weight 213 lb 9.6 oz Intake & Output: Intake & Output 10/26/22 10/27/22 10/27/22 19:59 03:59 11:59 Intake Total 1250 1290 50 Output Total 400 Balance 850 1290 50 Weight 213 lb 9.6 oz Intake: IV 50 50 50 Zosyn 2.25 gm In Dextrose 5% in 50 50 50 Water 50 ml @ 100 mls/hr IV Q8H [facility] Rx#:[id number] Oral 720 1240 GI Tube Flush 480 Output: Void Amount 400 Other: Meal Dinner Percent of Meal Consumed 100% Feeding Ability Independent Urine Appearance Clear Urine Color Yellow Urine Odor Normal Exam: AVSS. No changes LUANA. No distress. Post op: Open wound LEFT posterior heel. LEFT posterior heel dressings removed. Wound site is clean. Dried blood clots. Washed out with VASHE and C T syringe. NO purulence, NO odor, NO necroses NO warmth. Dried clots s/p silver nitrate. Treated with Xeroform, gauze, ABD pad Kerlix and ROSINA bandage. Change x 3 week. OFF loading with roll about scooter. A/P Narrative A/P Narrative: Assessment: Awaits PICC line vs port for IV antibiotics. Awaits X Ray for RIGHT foot and ankle. (s/p c/o POP of left foot and ankle) LEFT heel dressings changed. Needs dressing changes x 3 week. Plan of Treatment: Plan: Off loading scooter for LEFT foot and leg. Darco shoe for RIGHT foot. Continue rest of ongoing treatment. Dialysis, wound care and IV antibiotics. If d/c f/u at wound clinic in 1 week. Local wound care plan: RIGHT foot callus site. Skin moisturizing or repair creme, Mepilex, ROSINA and offloading Darco shoe. For LEFT foot posterior heel Clean with VASHE. Lite packing with Xeroform in wound. Gauze, ABD pad, Kerlix and ROSINA X 3 week. If d/c f/u at wound care clinic in ONE weeks time. 52-year-old female patient with multiple medical issues ESRD on hemodialysis Vasculopath Left calcaneal osteomyelitis Status post debridement Bone sample is positive for acute on chronic osteo Microbiology negative On Vanco and Zosyn Cultures are negative so far Recommendations: At the time of discharge, we can simplify the antibiotics to IV daptomycin 8 mg/kg after each hemodialysis She gets dialyzed every other day we should hold statin when she is on dapto We can also leave her on IV cefepime 2 g after each hemodialysis OR The other option will be IV ertapenem 1 g after each hemodialysis She can get oral Flagyl 500 mg 3 times a day for 2 to 3 weeks She gets a weekly CBC, CMP and Cpk Fever, rash, myelosuppression,'s rhabdo, interstitial hepatitis, seizures, encephalopathy etc. will be the few side effects She needs sugar control, offloading, wound care etc. ID will sign off Please consult us if need be . Time Spent With Patient Time: Total time spent is greater than 50% in coordination of care (as documented) at patient's floor/unit and/or counseling patient:
[2022-10-27] MEDS: APIXABAN 5 MG TABLET PO SCH ×2 (09:56→21:17)
[2022-10-27] MEDS: DULoxetine 30 MG CAPSULE PO SCH (09:56)
[2022-10-27] MEDS: LEVOTHYROXINE 75 MCG TABLET PO SCH (09:56)
[2022-10-27] MEDS: CAPTOPRIL 12.5 MG TABLET PO SCH ×2 (09:57→21:17)
[2022-10-27] MEDS: FUROSEMIDE 40 MG TABLET PO SCH ×2 (09:57→21:18)
[2022-10-27] MEDS: INSULIN GLARGINE, HUMAN 1 UNIT/0.01 ML SQ SCH ×2 (09:57→21:28)
--- NOTE | 2022-10-27 13:29 | Nephrology Progress Note ---
SUBJECTIVE Subjective Patient information: Note initiated : 10/27/22 at 1:23 pm Service Date, if different from initiated Date: [] Patient: Paige Lemos 52 y/o F admitted on 10/21/22 for Debridement Left Posterior Heel, Pulse Lavage. Chief Complaint: [foot infection] Principal diagnosis: ESRD on HD Interval history: Bone Bx (+) osteo with some gm (+) coccie but no growth to date. ID running ABx Lots of narcotics for abd pain with Median Accurate Ligament Syndrome that I predict DOES NOT IMPROVE WITH SURGERY which has been 3 yrs in the waiting due to COVID etc. LEFT foot with healing ulcer and charcot's deformity was on po ABx and HBO2 Now LEFT foot ulcer with biopsy proven osteo with a few Gm positive cocci on gram stain but no growth yet On Vanco and PIP/Daniel but ID recommends Daptomycin, Cefepine and po flagyl at home. These are meds associated with N/V so you should "test drive" them here prior to discharge. I've weighted in on why she does not need a picc line Pertinent ROS: Pain Additional PMFSH (Level 3 Only): Nothing new. Constitutional Vitals: Vital Signs Temp Pulse Resp BP Pulse Ox O2 Del Method O2 Flow Rate 35.5 C L 80 18 100/53 94 Room Air 0 10/27/22 12:53 10/27/22 13:09 10/27/22 11:38 10/27/22 13:09 10/27/22 11:38 10/27/22 11:38 10/23/22 19:55 Period Temp Pulse Resp BP Sys/Toro Pulse Ox O2 Del Method O2 Flow Rate Last 24 Hr 35.5 C-37.1 C 76-99 18-20 100-167/53-79 94-100 Room Air-Room Air Intake and Output 10/27/22 10/27/22 10/27/22 03:59 11:59 19:59 Intake Total 1290 50 Balance 1290 50 Weight 96.887 kg Intake & Output: Intake & Output 10/27/22 10/27/22 10/27/22 03:59 11:59 19:59 Intake Total 1290 50 Balance 1290 50 Weight 96.887 kg Intake: IV 50 50 Zosyn 2.25 gm In Dextrose 5% in 50 50 Water 50 ml @ 100 mls/hr IV Q8H [facility] Rx#:[id number] Oral 1240 General appearance: obese Head Head exam: Present normal inspection Eye Eye exam: Absent EOMI, PERRL or scleral icterus Pupils: Present unequal Additional comments: opacified lens Respiratory Respiratory exam: Present CTAB Cardiovascular Cardiovascular exam: Present RRR, +S1 and +S2 GI/Abdominal GI/Abdominal exam: Present normal bowel sounds Extremities Exam Additional comments: Right foot wrapped and charcot deformity Left foot wrapped, less with less deformity Neurological Exam Neurological exam: Present alert and oriented X3 Additional comments: nonfocal Sensory neuropathy Psychiatric Psychiatric exam: Present anxious Skin Skin exam: Present pallor A/P Assessment and plan (1) ESRD (end stage renal disease) on dialysis: Plan: HD MWF while hospitalized Status: Chronic Comment: Q TTHFSun (4 tx per week) is her home HD schedule (2) Secondary hyperparathyroidism of renal origin: Assessment and plan: Check Ca, PO4 and PTHi Status: Chronic Comment: PTH improved from 133 to 65 Phos is high Increased sevelemar to 1600 mg po TID with meals, no calcitriol or sensipar as P TH suppressed in low turnover metabolic bone disease (3) Anemia due to pre-ESRD treated with erythropoietin: Assessment and plan: 100 ug Aranesp SQ every week will getting frequent blood draws. Status: Acute Narrative A/P Narrative: 1. See if [facility] would provide daptomycin and cefepime as ordered by ID service. Patient and could give via dialysis extracorporeal circuit post home hemodialysis which is in the late evening well after hours for the homes home health or anyone else is available, avoids the need for a pick line in a HD patient that has had complications in the past with her left AVF and left great veins thrombosis last year and poor veins on the right side for a new AVF if needed, and avoids placement in an LTAC for continued ABx therapy if given by PICC line because she would have to be placed on [facility] HD if she went to a facility to have IV abx given via a picc line. 2. Aranesp 100 ug SQ today 3. HD in AM . 4. 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 Skin moisturizing or repair creme, Mepilex, ROSINA and offloading Darco shoe. For LEFT foot posterior heel Clean with VASHE. Lite packing with Xeroform in wound. Gauze, ABD pad, Kerlix and ROSINA X 3 week. If d/c f/u at wound care clinic in ONE weeks time. 52-year-old female patient with multiple medical issues ESRD on hemodialysis Vasculopath Left calcaneal osteomyelitis Status post debridement Bone sample is positive for acute on chronic osteo Microbiology negative On Vanco and Zosyn Cultures are negative so far Recommendations: At the time of discharge, we can simplify the antibiotics to IV daptomycin 8 mg/kg after each hemodialysis She gets dialyzed every other day we should hold statin when she is on dapto We can also leave her on IV cefepime 2 g after each hemodialysis OR The other option will be IV ertapenem 1 g after each hemodialysis She can get oral Flagyl 500 mg 3 times a day for 2 to 3 weeks She gets a weekly CBC, CMP and Cpk Fever, rash, myelosuppression,'s rhabdo, interstitial hepatitis, seizures, encephalopathy etc. will be the few side effects She needs sugar control, offloading, wound care etc. ID will sign off Please consult us if need be . Time Spent With Patient Time: Total time spent is greater than 50% in coordination of care (as documented) at patient's floor/unit and/or counseling patient:
[2022-10-27] MEDS: ALBUMIN HUMAN 12.5 GM/50 ML VIAL IV PRN ×2 (13:36→16:31)
[2022-10-27] MEDS ORDERED: DARBEPOETIN ALFA 100 MCG/ML VIAL SQ SCH (13:45)
[2022-10-27] MEDS ORDERED: CEFEPIME 2 GM VIAL IV SCH (17:00)
[2022-10-27] MEDS ORDERED: DAPTOmycin 500 MG VIAL IV SCH (17:00)
[2022-10-27] MEDS ORDERED: DARBEPOETIN ALFA 100 MCG/ML VIAL IV SCH (17:00)
[2022-10-27] MEDS: ARIPIPRAZOLE 5 MG TABLET PO SCH (21:16)
[2022-10-27] MEDS: OMEPRAZOLE 20 MG CAPSULE PO SCH (21:18)
[2022-10-27] MEDS: metroNIDAZOLE 500 MG TABLET PO SCH (22:11)
[2022-10-28] MEDS: HYDROmorphone 2 MG TABLET PO PRN ×3 (02:21→20:14)
[2022-10-28] MEDS: HYDROmorphone 1 MG/ML SYRINGE IV PRN ×5 (04:07→22:07)
[2022-10-28] MEDS: metroNIDAZOLE 500 MG TABLET PO SCH ×3 (05:34→22:35)
[2022-10-28] MEDS: 0.9 % SODIUM CHLORIDE 10 ML SYRINGE IV SCH ×3 (05:34→20:15)
[2022-10-28] MEDS: INSULIN LISPRO 1 UNIT/0.01 ML UNIT SQ SCH ×4 (07:47→20:13)
--- NOTE | 2022-10-28 08:30 | Nephrology Progress Note ---
SUBJECTIVE Subjective Patient information: Note initiated : 10/28/22 at 8:28 am Service Date, if different from initiated Date: [] Patient: Paige Lemos 52 y/o F admitted on 10/21/22 for Debridement Left Posterior Heel, Pulse Lavage. Chief Complaint: [] Principal diagnosis: ESRD on HD Interval history: 2.2 kg IDWG limited by hypotension Discussed transition to home antibiotic regement to make sure she can tolerate Dapromycin and po flagyl w/o excessive N/V Constitutional Vitals: Vital Signs Temp Pulse Resp BP Pulse Ox O2 Del Method O2 Flow Rate 36.8 C 80 16 126/68 100 Room Air 0 10/28/22 08:00 10/28/22 08:00 10/28/22 08:00 10/28/22 08:00 10/28/22 08:00 10/28/22 08:00 10/23/22 19:55 Period Temp Pulse Resp BP Sys/Toro Pulse Ox O2 Del Method O2 Flow Rate Last 24 Hr 35.5 C-37.3 C 74-105 16-20 79-155/44-71 92-100 Room Air-Room Air Intake and Output 10/27/22 10/28/22 10/28/22 19:59 03:59 11:59 Intake Total 50 150 Output Total 2860 Balance -2810 150 Weight 97.477 kg Intake & Output: Intake & Output 10/27/22 10/28/22 10/28/22 19:59 03:59 11:59 Intake Total 50 150 Output Total 2860 Balance -2810 150 Weight 97.477 kg Intake: IV 50 Oral 150 Output: Void Amount 200 Hemodialysis UF 2660 Other: Stool Size Large Stool Color Brown Stool Consistency Soft # Voids 1 # Bowel Movements 1 General appearance: obese Head Head exam: Present normal inspection Eye Eye exam: Absent EOMI, PERRL or scleral icterus Pupils: Present unequal Additional comments: opacified lens Respiratory Respiratory exam: Present CTAB Cardiovascular Cardiovascular exam: Present RRR, +S1 and +S2 GI/Abdominal GI/Abdominal exam: Present normal bowel sounds Extremities Exam Additional comments: Right foot wrapped and charcot deformity Left foot wrapped, less with less deformity Neurological Exam Neurological exam: Present alert and oriented X3 Additional comments: nonfocal Sensory neuropathy Psychiatric Psychiatric exam: Present anxious Skin Skin exam: Present pallor A/P Assessment and plan (1) ESRD (end stage renal disease) on dialysis: Status: Chronic Comment: Q TTHFSun (4 tx per week) is her home HD schedule (2) Osteomyelitis: Status: Acute Comment: ID recs include Dapto 0.8 mg/kg IV post HD Cefipime 2 gm IV post HD Flagyl 500 mg po TID (3) Internal jugular (IJ) vein thromboembolism, acute: Status: Resolved Comment: Found inadvertently at time of left upper arm AVF U/S study Resolved after 1 year of NOAC so can stop (4) Median arcuate ligament syndrome: Assessment and plan: C/O this since 2019 or earlier Nothing done to date Status: Chronic (5) Type 2 diabetes mellitus treated with insulin: Status: Chronic Comment: Retinopathy and blind OS, neuropathy, arthropathy, PVD and ESRD (6) PVD (peripheral vascular disease): Status: Chronic Comment: MRI ordered due to chronic foot issues and (+) LE dopplers (7) Anemia due to end stage renal disease: Status: Chronic Comment: Aranesp 100 ug q week while in hospital (8) Hypertension, essential, benign: Assessment and plan: U/F sensitive Status: Chronic (9) Secondary hyperparathyroidism of renal origin: Assessment and plan: PO4 binders 800-1600 mg sevelemar po TID with meals Status: Chronic Comment: PTH improved from 133 to 65, Phos is high, Increased sevelemar to 1600 mg po TID with meals, no calcitriol or sensipar as PTH suppressed in low turnover metabolic bone disease Plan PTH improved from 133 to 65, Phos is high, Increased sevelemar to 1600 mg po TID with meals, no calcitriol or sensipar as PTH suppressed in low turnover metabolic bone disease ABx per ID Silva LEVINE arranged OUT patient ABx thru Iagnosis They would supply and patient / could infuse post home dialysis late in evening and avoid hospitalization and the evil PICC line Aranesp 200 ug every 2 weeks as outpatient at Home HD clinic and adjust per HgB response OK for D/C if MRI's done and home ABx arranged and ordered by ID or Hospital medicine Wound care at [facility] as perviously arranged. Narrative A/P Narrative: As above Plan of Treatment: Other physicians in her care suggestions/recommendations Local wound care plan: RIGHT foot callus site. Skin moisturizing or repair creme, Mepilex, ROSINA and offloading Darco shoe. For LEFT foot posterior heel Clean with VASHE. Lite packing with Xeroform in wound. Gauze, ABD pad, Kerlix and ROSINA X 3 week. If d/c f/u at wound care clinic in ONE weeks time. 52-year-old female patient with multiple medical issues ESRD on hemodialysis Vasculopath Left calcaneal osteomyelitis Status post debridement Bone sample is positive for acute on chronic osteo Microbiology negative On Vanco and Zosyn Cultures are negative so far Recommendations: At the time of discharge, we can simplify the antibiotics to IV daptomycin 8 mg/kg after each hemodialysis She gets dialyzed every other day we should hold statin when she is on dapto We can also leave her on IV cefepime 2 g after each hemodialysis OR The other option will be IV ertapenem 1 g after each hemodialysis She can get oral Flagyl 500 mg 3 times a day for 2 to 3 weeks She gets a weekly CBC, CMP and Cpk Fever, rash, myelosuppression,'s rhabdo, interstitial hepatitis, seizures, encephalopathy etc. will be the few side effects She needs sugar control, offloading, wound care etc. ID will sign off Please consult us if need be . Time Spent With Patient Time: Total time spent is greater than 50% in coordination of care (as documented) at patient's floor/unit and/or counseling patient:
[2022-10-28] MEDS: INSULIN GLARGINE, HUMAN 1 UNIT/0.01 ML SQ SCH ×2 (08:39→20:14)
[2022-10-28] MEDS: DULoxetine 30 MG CAPSULE PO SCH (08:39)
[2022-10-28] MEDS: FUROSEMIDE 40 MG TABLET PO SCH ×2 (08:40→20:15)
[2022-10-28] MEDS: APIXABAN 5 MG TABLET PO SCH ×2 (08:40→20:14)
[2022-10-28] MEDS: CAPTOPRIL 12.5 MG TABLET PO SCH ×2 (08:40→20:15)
[2022-10-28] MEDS: LEVOTHYROXINE 75 MCG TABLET PO SCH (08:40)
[2022-10-28] MEDS: SEVELAMER 800 MG TABLET PO SCH ×3 (08:41→17:10)
--- NOTE | 2022-10-28 13:16 | General Surgery Progress Note ---
SUBJECTIVE Subjective Patient information: Note initiated : 10/28/22 at 1:08 pm Service Date, if different from initiated Date: [] Patient: Paige Lemos 52 y/o F admitted on 10/21/22 for Debridement Left Posterior Heel, Pulse Lavage. Chief Complaint: [] Principal diagnosis: ESRD on HD Additional PMFSH (Level 3 Only): Patient seen along with Marii Stubbs RN. LEFT posterior heel wound site examined. Resolving post surgical changes. (Debridement of posterior heel and bone marrow biopsy) Drainage from wound and edema around ankle and heel is less. NO throbbing. NO purulence, NO odor, NO warmth and Periwound skin and subcutaneous texture is firm. Constitutional Vitals: Vital Signs Temp Pulse Resp BP Pulse Ox O2 Del Method O2 Flow Rate 98.4 F 79 16 141/82 96 Room Air 0 10/28/22 11:56 10/28/22 11:56 10/28/22 11:56 10/28/22 11:56 10/28/22 11:56 10/28/22 11:56 10/23/22 19:55 Period Temp Pulse Resp BP Sys/Toro Pulse Ox O2 Del Method O2 Flow Rate Last 24 Hr 98.1 F-99.1 F 74-105 16-20 79-143/44-82 92-100 Room Air-Room Air Intake and Output 10/28/22 10/28/22 10/28/22 03:59 11:59 19:59 Intake Total 150 0 Balance 150 0 Intake & Output: Intake & Output 10/28/22 10/28/22 10/28/22 03:59 11:59 19:59 Intake Total 150 0 Balance 150 0 Intake: Nourishment/Supplement quantity 0 (ml) Oral 150 Other: Meal Breakfast Percent of Meal Consumed 100% Feeding Ability Independent Exam: AFEBRILE. VSS. No changes in LUANA. She is at her baseline. Dialyzed uneventfully yesterday. Bone debridement and biopsy site cavity is clean. Bone pathology. Acute osteomyelitis. Bone tissue c/s. GPC. Sensitivities pending. Appreciate Nephrology input of Dr. Guzman A/P Narrative A/P Narrative: Assessment: Progressing well after bone debridement and biopsy bone marrow. Tolerating OFFLOADING. Keen to go home. Keen to continue HD and wound care at home.AND F/U at clinic.. Plan of Treatment: Other physicians in her care suggestions/recommendations Local wound care plan: RIGHT foot callus site. Skin moisturizing or repair creme, Mepilex, ROSINA and offloading Darco shoe. For LEFT foot posterior heel Clean with VASHE. Lite packing with AQUCEL AG RIBBON. THIS WAS DEMONSTRATED TO PATIENT. Gauze, ABD pad, Kerlix and ROSINA X 3 week. If d/c f/u at wound care clinic in ONE weeks time. 52-year-old female patient with multiple medical issues ESRD on hemodialysis Vasculopath Left calcaneal osteomyelitis Status post debridement Bone sample is positive for acute on chronic osteo Microbiology negative On Vanco and Zosyn Cultures are negative so far Recommendations: At the time of discharge, we can simplify the antibiotics to IV daptomycin 8 mg/kg after each hemodialysis She gets dialyzed every other day we should hold statin when she is on dapto We can also leave her on IV cefepime 2 g after each hemodialysis OR The other option will be IV ertapenem 1 g after each hemodialysis She can get oral Flagyl 500 mg 3 times a day for 2 to 3 weeks She gets a weekly CBC, CMP and Cpk Fever, rash, myelosuppression,'s rhabdo, interstitial hepatitis, seizures, encephalopathy etc. will be the few side effects She needs sugar control, offloading, wound care etc. ID will sign off Please consult us if need be . Time Spent With Patient Time: Total time spent is greater than 50% in coordination of care (as documented) at patient's floor/unit and/or counseling patient: Initial: Total time with patient: 40 - 54 minutes
--- NOTE | 2022-10-28 19:28 | Internal Med Progress Note ---
SUBJECTIVE Subjective Patient information: Note initiated : 10/28/22 at 7:23 pm Service Date, if different from initiated Date: [] Patient: Paige Lemos a 52 y/o F admitted on 10/21/22 for Debridement Left Posterior Heel, Pulse Lavage. Chief Complaint: [] Principal diagnosis: ESRD on HD Interval history: HPI: Ms. 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 She has a history of multiple toe amputations from right foot with poorly healing wound for which she has received extensive recent hyperbaric oxygen treatment. She has now in the last several weeks developed a left heel wound that has opened and now has exposed bone. Her wound care physician referred her to the ER for further evaluation and management. Workup in the ER is notable for obvious foot wound with bone, CT of the foot notes a calcaneal fracture communicating with soft tissue infection. Arterial Duplex studies of the legs note patent left leg arteries but the right notes greater than 50% stenosis in mid and distal SFA as well as multiple greater than 50% stenosis in the anterior, peroneal and posterior tibial arteries. The Radiologist suggests CT abominal aortogram with run-off or MR equivalent. ER made made many attempts to facilitate transfer to a tertiary center with the ability to perform HD and also with Vascular Surgery and Podiatry available but have thus far been unsuccessful in securing transfer to a facility with these capabilities. Pt understands she is being admitted to a faclity without Podiatry or Vascular Surgery. Blood cultures were obtained, Vancomycin and Zosyn were given. Admission was requested to continue the workup. Oct 22, Pt went to OR this AM with Dr. Silva for debridement. No calcaneal fracture was noted. MRI of the foot is consistent with calcaneal osteo. Bone Bx and Cx obtained in the OR. Tele ID consult ordered. Will need Abx plan. Unable to obtain MR Angio with runoff to assess LE vascular supply due to ESRD. 3 Patient had surgical I&D with bone biopsies done yesterday. Anemia present and mildly worsened from yesterday. Trend. Awaiting surgical cultures. Patient will need catheter placed at [facility]. Hyponatremia noted. 3 Undergoing dialysis today. Lost IV access. Will discuss with nephrology. No overnight event or new complaints. Hemoglobin stable. Awaiting surgical cultures. 10/25 Patient complains of diarrhea since last night and blames the antibiotics. No new fevers or chills. IV antibiotics per nephrology and infectious disease. Awaiting surgical cultures. Continue dressing changes per wound care. 10/26 No overnight event or new complaints. Still awaiting surgical cultures. Patient we have dialysis tomorrow 10/27 Patient states she got up to go the bathroom with a walker and fell on her right foot and heard a pop on the top of her forefoot. Complains of pain. Anemic on labs. Hyponatremia hypochloremia. Surgical wound cultures negative thus far. Patient had been on antibiotics for prior. 10/28 Vitals stable, no significant events overnight. Home antibiotic infusions were denied by the patient's insurance. The alternative plan will be to provide IV antibiotic infusions at the infusion center. Discussed with interventional radiology, Dr. Rao, who feels he could place a tunneled IJ PICC line tomorrow. We will plan on discharging tomorrow to interventional radiology then home. Physical exam Head: Atraumatic, normal inspection. Eyes: normal appearance, no scleral icterus. Neck: full ROM Respiratory: no respiratory distress. Extremities: Both feet covered with clean dressings Neurological: CN II-XII intact, intact motor, intact sensation. Psychiatric: normal mood. Skin: warm, normal color Constitutional Vitals: Vital Signs Temp Pulse Resp BP Pulse Ox O2 Del Method O2 Flow Rate 98.1 F 85 20 161/65 96 Room Air 0 10/28/22 19:10 10/28/22 19:10 10/28/22 19:10 10/28/22 19:10 10/28/22 19:10 10/28/22 19:10 10/23/22 19:55 Period Temp Pulse Resp BP Sys/Toro Pulse Ox O2 Del Method O2 Flow Rate Last 24 Hr 98.1 F-98.6 F 76-85 16-20 123-161/63-82 92-100 Room Air-Room Air Intake and Output 10/28/22 10/28/22 10/28/22 03:59 11:59 19:59 Intake Total 150 0 300 Balance 150 0 300 Weight 96.978 kg Patient Weight 10/29/22 03:59 Weight 96.978 kg Intake & Output: Intake & Output 10/28/22 10/28/22 10/28/22 03:59 11:59 19:59 Intake Total 150 0 300 Balance 150 0 300 Weight 96.978 kg Intake: Nourishment/Supplement quantity 0 (ml) Oral 150 300 Other: Meal Breakfast Percent of Meal Consumed 100% Feeding Ability Independent OBJ DATA Labs 10/27/22 06:17 10/27/22 06:17 Labs: Abnormal Lab Results 10/27/22 10/27/22 10/27/22 06:17 06:17 06:17 RBC 2.43 L Hgb 7.3 L Hct 24.9 L MCV 102.5 H MCHC 29.3 L RDW 17.2 H MPV 8.6 L Percent Retic 2.16 H Sodium 130 L Chloride 93 L Carbon Dioxide 21 L BUN 60 H Creatinine 6.7 H* Phosphorus 7.4 H* Iron 22 L Ferritin 632.3 H C-Reactive Protein 3.70 H Albumin 2.9 L Albumin/Globulin Ratio 0.8 L TSH 0.24 L PTH Intact 69.4 H Meds: Medications Apixaban (Apixaban 5 Mg Tablet) 2.5 mg PO BID [facility] Last Admin: 10/28/22 08:40 Dose: 2.5 mg Captopril (Captopril 12.5 Mg Tablet) 25 mg PO BID [facility] Last Admin: 10/28/22 08:40 Dose: 25 mg Cefepime HCl (Cefepime 2 Gm Vial) 2 gm IV MoWeFr@1700 [facility] Last Admin: 10/27/22 17:44 Dose: 2 gm Daptomycin (Daptomycin 500 Mg Vial) 500 mg IV MoWe@1700 [facility] Last Admin: 10/27/22 17:44 Dose: 500 mg Daptomycin (Daptomycin 500 Mg Vial) 750 mg IV Fr@1700 [facility] Darbepoetin Daniel (Darbepoetin Daniel 100 Mcg/Ml Vial) 100 mcg IV Q7D [facility] Last Admin: 10/27/22 14:00 Dose: 100 mcg Dextrose (Dextrose 50% 50 Ml Vial) 0 ml IV UD PRN PRN Reason: Per Sliding Scale Diagnostic Test (Pha) (Accu-Chek 1 Each Strip) 1 each FS ACHS [facility] Last Admin: 10/28/22 17:03 Dose: 1 each Diphenhydramine HCl (Diphenhydramine 25 Mg Capsule) 25 mg PO Q4HP PRN PRN Reason: Allergic Symptoms Last Admin: 10/26/22 00:00 Dose: 25 mg Duloxetine HCl (Duloxetine 30 Mg Capsule) 120 mg PO DAILY [facility] Last Admin: 10/28/22 08:39 Dose: 120 mg Furosemide (Furosemide 40 Mg Tablet) 40 mg PO BID [facility] Last Admin: 10/28/22 08:40 Dose: 40 mg Glucose (Dextrose 31 Gm Oral.Susp) 15 gm PO PRN PRN PRN Reason: Hypoglycemia Hydromorphone HCl (Hydromorphone 1 Mg/Ml Syringe) 1 mg IV Q2HP PRN; Protocol PRN Reason: Per Pain Protocol Last Admin: 10/28/22 15:17 Dose: 1 mg Hydromorphone HCl (Hydromorphone 2 Mg Tablet) 4 mg PO Q4HP PRN PRN Reason: Pain Last Admin: 10/28/22 07:42 Dose: 4 mg Albumin Human (Buminate) 12.5 gm in 50 mls @ 100 mls/hr IV PRN PRN PRN Reason: hypotension on HD Last Infusion: 10/27/22 14:10 Dose: Infused Insulin Glargine (Insulin Glargine, Human 1 Unit/0.01 Ml) 15 unit SQ BID [facility] Last Admin: 10/28/22 08:39 Dose: 15 units Insulin Human Lispro (Insulin Lispro 1 Unit/0.01 Ml Unit) 0 unit SQ ACHS [facility]; Protocol Last Admin: 10/28/22 17:10 Dose: 4 units Levothyroxine Sodium (Levothyroxine 75 Mcg Tablet) 75 mcg PO QDAY [facility] Last Admin: 10/28/22 08:40 Dose: 75 mcg Loperamide HCl (Loperamide 2 Mg Capsule) 2 mg PO PRN PRN PRN Reason: Diarrhea Last Admin: 10/27/22 17:59 Dose: 2 mg Metronidazole (Metronidazole 500 Mg Tablet) 500 mg PO Q8 [facility]; Protocol Last Admin: 10/28/22 15:17 Dose: 500 mg Omeprazole (Omeprazole 20 Mg Capsule) 20 mg PO QHS [facility] Last Admin: 10/27/22 21:18 Dose: 20 mg Promethazine HCl (Promethazine 25 Mg Tablet) 50 mg PO Q6HP PRN PRN Reason: Nausea And Vomiting Sevelamer Carbonate (Sevelamer 800 Mg Tablet) 1,600 mg PO TIDCC [facility] Last Admin: 10/28/22 17:10 Dose: 1,600 mg Sodium Chloride (0.9 % Sodium Chloride 10 Ml Syringe) 10 ml IV Q8 [facility] Last Admin: 10/28/22 15:18 Dose: 10 ml A/P Assessment and plan (1) Osteomyelitis: Status: Acute Comment: ID recs include Dapto 0.8 mg/kg IV post HD Cefipime 2 gm IV post HD Flagyl 500 mg po TID (2) Calcaneus fracture, left: Status: Acute (3) ESRD (end stage renal disease): Status: Acute (4) Type 2 diabetes mellitus treated with insulin: Status: Chronic Comment: Retinopathy and blind OS, neuropathy, arthropathy, PVD and ESRD (5) Chronic pain: Status: Chronic Narrative A/P Narrative: A: #Osteomyelitis Left heel: s/p I&D (10/22) #Chronic diabetic foot wounds: #DM complicated by retinopathy and ESRD: #Hyponatremia, chronic: #PVD: RLE #ESRD: on hemodialysis #Anemia, chronic: #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 Foster pending surgical cx's -abx per ID> Dapto/cefepime for 2-months, flagyl for 2-3wks -Nephrology following for inpatient hemodialysis, PICC or Port to be placed at [facility] upon d/c -foot xray left -basal and SSI -Eliquis 2.5 mg twice daily. -Home acei, Lasix -Follow up with podiatry after discharge -DVT prophylaxis: On Eliquis / home ppi -Disposition: Currently inpatient MedSurg. Plan is to discharge home tomorrow, interventional radiology to place tunneled IJ PICC tomorrow then the patient will receive IV antibiotics at the infusion center. Plan of Treatment: Other physicians in her care suggestions/recommendations Local wound care plan: RIGHT foot callus site. Skin moisturizing or repair creme, Mepilex, ROSINA and offloading Darco shoe. For LEFT foot posterior heel Clean with VASHE. Lite packing with AQUCEL AG RIBBON. THIS WAS DEMONSTRATED TO PATIENT. Gauze, ABD pad, Kerlix and ROSINA X 3 week. If d/c f/u at wound care clinic in ONE weeks time. 52-year-old female patient with multiple medical issues ESRD on hemodialysis Vasculopath Left calcaneal osteomyelitis Status post debridement Bone sample is positive for acute on chronic osteo Microbiology negative On Vanco and Zosyn Cultures are negative so far Recommendations: At the time of discharge, we can simplify the antibiotics to IV daptomycin 8 mg/kg after each hemodialysis She gets dialyzed every other day we should hold statin when she is on dapto We can also leave her on IV cefepime 2 g after each hemodialysis OR The other option will be IV ertapenem 1 g after each hemodialysis She can get oral Flagyl 500 mg 3 times a day for 2 to 3 weeks She gets a weekly CBC, CMP and Cpk Fever, rash, myelosuppression,'s rhabdo, interstitial hepatitis, seizures, encephalopathy etc. will be the few side effects She needs sugar control, offloading, wound care etc. ID will sign off Please consult us if need be . Time Spent With Patient Time: Total time spent is greater than 50% in coordination of care (as documented) at patient's floor/unit and/or counseling patient: QUALITY VTE Deep Vein Thrombosis/Pulmonary Embolism Present on Admission: No
[2022-10-28] MEDS: ARIPIPRAZOLE 5 MG TABLET PO SCH (20:14)
[2022-10-28] MEDS: OMEPRAZOLE 20 MG CAPSULE PO SCH (20:15)
[2022-10-29] MEDS: metroNIDAZOLE 500 MG TABLET PO SCH (05:19)
[2022-10-29] MEDS: HYDROmorphone 2 MG TABLET PO PRN (05:19)
[2022-10-29] MEDS: 0.9 % SODIUM CHLORIDE 10 ML SYRINGE IV SCH (05:20)
[2022-10-29] MEDS: SEVELAMER 800 MG TABLET PO SCH (07:39)
[2022-10-29] MEDS: INSULIN LISPRO 1 UNIT/0.01 ML UNIT SQ SCH ×2 (07:39→11:38)
[2022-10-29] MEDS: CAPTOPRIL 12.5 MG TABLET PO SCH (07:39)
[2022-10-29] MEDS: DULoxetine 30 MG CAPSULE PO SCH (07:39)
[2022-10-29] MEDS: FUROSEMIDE 40 MG TABLET PO SCH (07:40)
[2022-10-29] MEDS: LEVOTHYROXINE 75 MCG TABLET PO SCH (07:40)
[2022-10-29] MEDS: APIXABAN 5 MG TABLET PO SCH (07:40)
[2022-10-29] MEDS: HYDROmorphone 1 MG/ML SYRINGE IV PRN (07:55)
--- NOTE | 2022-10-29 07:58 | Discharge Summary ---
Discharge Provider Provider IMPORTANT FOLLOW-UP INFORMATION FOR PCP: Patient information: Note initiated : 10/29/22 at 7:53 am Service Date, if different from initiated Date: [] Patient: Paige Lemos 52 y/o F admitted on 10/21/22 for Debridement Left Posterior Heel, Pulse Lavage. Chief Complaint: [] Date of admission: 10/21/22 11:40 Discharge date: 10/29/22 Primary care physician: Bridger Benites MD Consults: 10/20/22 Consult to Physician [CONS] Stat Comment: Consulting Provider: Alberta Weir Reason For Exam: Physician to Consult Consult to Physician [CONS] Stat Comment: Consulting Provider: Antolin Jacob Reason For Exam: Physician to Consult 10/22/22 10:11 Consult to Physician [CONS] Routine Comment: Consulting Provider: Bijan MARTINEZ Reason For Exam: Physician to Consult COURSE Hospital Course Hospital course: Ms. 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 She has a history of multiple toe amputations from right foot with poorly healing wound for which she has received extensive recent hyperbaric oxygen treatment. She has now in the last several weeks developed a left heel wound that has opened and now has exposed bone. Her wound care physician referred her to the ER for further evaluation and management. Workup in the ER is notable for obvious foot wound with bone, CT of the foot notes a calcaneal fracture communicating with soft tissue infection. Arterial Duplex studies of the legs note patent left leg arteries but the right notes greater than 50% stenosis in mid and distal SFA as well as multiple greater than 50% stenosis in the anterior, peroneal and posterior tibial arteries. The Radiologist suggests CT abominal aortogram with run-off or MR equivalent. ER made made many attempts to facilitate transfer to a tertiary center with the ability to perform HD and also with Vascular Surgery and Podiatry available but have thus far been unsuccessful in securing transfer to a facility with these capabilities. Pt understands she is being admitted to a faclity without Podiatry or Vascular Surgery. Blood cultures were obtained, Vancomycin and Zosyn were given. Admission was requested to continue the workup. Mar 1, Pt went to OR this AM with Dr. Silva for debridement. No calcaneal fracture was noted. MRI of the foot is consistent with calcaneal osteo. Bone Bx and Cx obtained in the OR. Tele ID consult ordered. Will need Abx plan. Unable to obtain MR Angio with runoff to assess LE vascular supply due to ESRD. 10/23 Patient had surgical I&D with bone biopsies done yesterday. Anemia present and mildly worsened from yesterday. Trend. Awaiting surgical cultures. Patient will need catheter [facility] at [facility] Hyponatremia noted. 10/24 Undergoing dialysis today. Lost IV access. Will discuss with nephrology. No overnight event or new complaints. Hemoglobin stable. Awaiting surgical cultures. 10/25 Patient complains of diarrhea since last night and blames the antibiotics. No new fevers or chills. IV antibiotics per nephrology and infectious disease. Awaiting surgical cultures. Continue dressing changes per wound care. 10/26 No overnight event or new complaints. Still awaiting surgical cultures. Patient we have dialysis tomorrow 10/27 Patient states she got up to go the bathroom with a walker and fell on her right foot and heard a pop on the top of her forefoot. Complains of pain. Anemic on labs. Hyponatremia hypochloremia. Surgical wound cultures negative thus far. Patient had been on antibiotics for prior. 10/28 Vitals stable, no significant events overnight. Home antibiotic infusions were denied by the patient's insurance. The alternative plan will be to provide IV antibiotic infusions at the infusion center. Discussed with interventional radiology, Dr. Rao, who feels he could place a tunneled IJ PICC line tomorrow. We will plan on discharging tomorrow to interventional radiology then home. 10/29 Vital stable overnight. The patient is discharged to home. She has an appointment with interventional radiology early this afternoon for tunneled PICC line placement. The patient will continue antibiotic treatment via the PICC line at the infusion center. Monitor CBC with differential, renal function panel, LFTs, CRP and CK while receiving IV daptomycin and cefepime. ID recommended daptomycin and cefepime for total of 2 months and oral Flagyl for 2 to 3 weeks. 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 -Home acei, Lasix -wound per Dr. Foster pending surgical cx's -Follow up with podiatry after discharge. -DVT prophylaxis: On Eliquis -Disposition: Currently inpatient MedSurg. Plan is to discharge home tomorrow, interventional radiology to place tunneled IJ PICC tomorrow then the patient will receive IV antibiotics at the infusion center. Physical exam Head: Atraumatic, normal inspection. Eyes: normal appearance, no scleral icterus. Neck: full ROM Respiratory: no respiratory distress. Extremities: Both feet covered with clean dressings Neurological: CN II-XII intact, intact motor, intact sensation. Psychiatric: normal mood. Skin: warm, normal color Discharge diagnosis: Left calcaneal osteomyelitis Time Spent with Patient Time attestation: Total time spent providing and/or coordinating discharge services: Time spent: Greater than 30 minutes EXAM Constitutional Vitals: Temp Pulse Resp BP Pulse Ox O2 Del Method O2 Flow Rate 97.6 F 73 18 151/69 93 Room Air 0 10/29/22 02:43 10/29/22 02:43 10/29/22 02:43 10/29/22 02:43 10/29/22 02:43 10/29/22 02:43 10/23/22 19:55 Discharge Data Data Completed and Pending Labs on day of discharge: Labs from last 24 hours 10/29/22 10/29/22 05:13 05:13 ESR 65 H Sodium Pending Potassium Pending Chloride Pending Carbon Dioxide Pending Anion Gap Pending BUN Pending Creatinine Pending GFR Calculation Pending Glucose Pending Calcium Pending Phosphorus Pending C-Reactive Protein Pending Albumin Pending Discharge Plan Patient/Caregiver Discharge Instructions Activity: increase activity as tolerated Diet: Renal/Consistent Carbs Activity Restrictions/Additional Instructions: You are scheduled at [facility] Radiology on , 10/30, at 8:00 am for a PICC line placement. Please check-in at registration at 7:45 am. Return to [facility] on Thursday, Thursday, and Thursday after your home dialysis for IV antibiotics. Report to the MedSurg unit at approximately 5:30 pm (as soon as you are done with your dialysis) Continue IV antibiotics per nephrology and infectious disease. Wound care: Right foot callus site; Cleanse with saline, dry, apply mepilex border foam dressing rosina wrap and offloading with Darco shoe. Utilize skin moisturizing or repair cream to feet but not between toes. Left foot posterior heel; Cleanse with Vashe soak ( 3-5mins) Light packing with Aquacel AG ribbon, Gauze, ABD pad, kerlix and rosina wrap 3x per week (every 2 days). Visit to Wound care Clinic one week... Prescriptions: New cefepime 2 gram Recon Soln 2 g IV MoWeFr@1700 60 Days Qty: 12 2RF metronidazole 500 mg Tablet 500 mg PO Q8 21 Days Qty: 63 0RF daptomycin 500 mg Recon Soln 500 mg IV MoWeFr@1700 60 Days Qty: 12 3RF Continued diphenhydramine HCl [Benadryl] 25 mg capsule 25 - 75 mg PO Q6H PRN (Reason: Allergy Symptoms) Rx Instructions: Dialysis - 75 mg orally (25 mg tablet) every 6 hours prn Itching clobetasol 0.05 % solution 1 applic TOPICAL QDAY PRN (Reason: Itching) Rx Instructions: 1 hemanth applied topically (0.05% cream) once a day Apply thin layer to affected area(s) prn apixaban 2.5 mg tablet 2.5 mg PO BID Qty: 60 11RF Rx Instructions: Call if excessive bleeding from AVF occurs insulin lispro [Humalog KwikPen Insulin] 100 unit/mL insulin pen 10 unit subcut TID Qty: 15 2RF ondansetron 4 mg tablet,disintegrating 4 mg PO Q4H PRN (Reason: for nausea/vomiting) Qty: 30 2RF duloxetine 60 mg capsule,delayed release(DR/EC) 120 mg PO QDAY Qty: 180 3RF levothyroxine 75 mcg tablet 75 mcg PO QDAY Qty: 90 0RF aripiprazole 15 mg tablet 15 mg PO QHS Qty: 30 5RF sevelamer carbonate 800 mg tablet 800 mg PO TIDCC Qty: 180 12RF Rx Instructions: given any time with eating. captopril 25 mg tablet 25 mg PO Q12H Qty: 60 12RF Rx Instructions: Hold dose immediately before home HD treatment promethazine 50 mg tablet 50 mg PO Q6H PRN (Reason: nausea and vomiting) Qty: 120 1RF doxycycline hyclate 100 mg tablet 100 mg PO QDAY docusate sodium [Colace] 100 mg capsule 100 mg PO DAILYP PRN (Reason: Constipation) omeprazole 20 mg Capsule,Delayed Release(Dr/Ec) 20 mg PO QHS insulin glargine 100 unit/mL (3 mL) Insulin Pen 10 unit SUBCUT QAM insulin glargine 100 unit/mL (3 mL) Insulin Pen 20 unit SUBCUT QPM hydromorphone 4 mg tablet 4 - 8 mg PO Q4HP PRN (Reason: pain) Other Ambulatory Orders: [facility] (ONCE) Location: None Selected Ordered By: Enrico Martinez Follow Up Plan Follow up with: Enrico Martinez MD [Physician] - (Follow up within 1 week after discharge for bilateral foot wounds. She is an established patient.) Bridger Benites MD [Primary Care Provider] - Alberta Weir MD [Physician] - Patient Disposition: Home, Self-Care Plan of Treatment: Other physicians in her care suggestions/recommendations Local wound care plan: RIGHT foot callus site. Skin moisturizing or repair creme, Mepilex, ROSINA and offloading Darco shoe. For LEFT foot posterior heel Clean with VASHE. Lite packing with AQUCEL AG RIBBON. THIS WAS DEMONSTRATED TO PATIENT. Gauze, ABD pad, Kerlix and ROSINA X 3 week. If d/c f/u at wound care clinic in ONE weeks time. 52-year-old female patient with multiple medical issues ESRD on hemodialysis Vasculopath Left calcaneal osteomyelitis Status post debridement Bone sample is positive for acute on chronic osteo Microbiology negative On Vanco and Zosyn Cultures are negative so far Recommendations: At the time of discharge, we can simplify the antibiotics to IV daptomycin 8 mg/kg after each hemodialysis She gets dialyzed every other day we should hold statin when she is on dapto We can also leave her on IV cefepime 2 g after each hemodialysis OR The other option will be IV ertapenem 1 g after each hemodialysis She can get oral Flagyl 500 mg 3 times a day for 2 to 3 weeks She gets a weekly CBC, CMP and Cpk Fever, rash, myelosuppression,'s rhabdo, interstitial hepatitis, seizures, encephalopathy etc. will be the few side effects She needs sugar control, offloading, wound care etc. ID will sign off Please consult us if need be . Prognosis: Fair Overall status at discharge: patient is progressing back to baseline Discharge Orders: Discharge Order (Routine); Ordered 10/29/22 Ordered By: Adarsh CHATTERJEE VTE Deep Vein Thrombosis/Pulmonary Embolism Present on Admission: No
[2022-10-29 08:14] LABS: Albumin 3.2 gm/dL (3.2-5.2); Blood Urea Nitrogen 47 mg/dL (6-20); Calcium 9.2 mg/dL (8.6-10.4); Carbon Dioxide 26 mmol/L (22-30); Chloride 96 mmol/L (96-108); Glomerular Filtration Rate 9; Glucose 59 mg/dL (70-105); Phosphorous 6.6 mg/dL (2.5-4.5)
[2022-10-29] MEDS: INSULIN GLARGINE, HUMAN 1 UNIT/0.01 ML SQ SCH (11:36)
[2022-10-31] MEDS ORDERED: DAPTOmycin 500 MG VIAL IV SCH (17:00)
== END 2022-10-29 12:12 | disposition home or self-care (01) | DRG 463 ==
LOC: ED 12:49 → MEDSUR 10-21 11:40
PROVIDERS: ADMIT Internal Medicine; ATTEND Internal Medicine